=== PATIENT | female | born 1995 ===

== ENCOUNTER 2024-03-26 13:23 | Outpatient (AMB) | payer OTHER, SELFPAY ==
[2024-03-26 13:30] VITALS: PULSE 91; O2SAT 112; BMI 21.3
--- NOTE | 2024-03-26 13:30 | A.OFFVIS_ITS ---
Vital Signs 03/26/24 13:30 Height 6 ft Weight 157 lb BMI 21.3 Pulse 91 Pulse Source Pulse Oximeter Pulse Oximetry (%) 112 H Oxygen Delivery Method Room Air Intake Visit Reasons: Myasthenia Gravis/Tracheostomy Stakes Player Required: No Allergies No Known Allergies Allergy (Verified 03/26/24 13:35) HPI Comments Details: The patient is here for a pulmonary evaluation. The patient is a zak 28-year-old woman with a history of asthma, myasthenia gravis, rheumatoid arthritis now with tracheostomy for respiratory failure. Most of her records are a [facility] and also at [facility]. She also gets her care from [facility]. Based on the records the patient did have a episode of acute hypercarbic and hypoxic respiratory failure required intubation at [facility]. During that admission the patient did end up getting a tracheostomy placement likely for inability to clear the airway. She was subsequently placed on oxygen she was able to be discharged home. Not sure of the patient went to rehab before going home. Ultimately while in home she developed respiratory failure again and had to go back to the ER which they found that it was due to a faulty tracheostomy that had to be changed. She initially had a Shiley cuffed trach which was then replaced with a 6. Fenestrated CFN tracheostomy. Since the tracheostomy change she has had hard time with her breathing. It has been difficult for her to breathe or even be suctioned. She does have a Pass[place] valve that allows her to speak. She has a very weak cough due to her neuromuscular disease. She does get suctioned although she does not have any type of cough assist device. She has been on immunosuppressant therapy for her autoimmune conditions. She does use her nebulizer twice a day. In her asthma seems to be good control. As far as her nutrition the patient does have a PEG tube. Today we did change her tracheostomy to a 6UN75H tracheostomy which she feels more comfortable with. She is tolerating the Passy [place] valve very well. She has no longer using a noninvasive ventilator at home. We will assess her blood work including a venous gas to assess her CO2. The patient may benefit from noninvasive ventilation to minimize the hypercarbia and improve gas exchange. 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 Respiratory failure Social History (Updated 03/26/24 @ 13:43 by PEARL Drake) Patient Tobacco Use Status: Never used Tobacco Review of Systems Const Denies fever(s) and Reports weakness Eyes Reports no additional complaints ENT Reports neck pain Card Denies chest pain and Reports dyspnea Resp Reports cough and Reports dyspnea GI Reports abdominal pain (peg site) Musc Reports deformity, Reports arthralgias, Reports joint swelling, Reports limited range of motion and Reports neck pain Skin/Breast Denies rash Neuro Reports Neuro-related abnormal movements and Reports weakness Physical Exam Vital Signs: Last Vital Signs Pulse 91 03/26/24 13:30 Pulse Ox 112 H 03/26/24 13:30 Oxygen Delivery Method Room Air 03/26/24 13:30 BMI result Body Mass Index 21.3 Const General: alert Nutritional Appearance: underweight HEENT Head: Yes normocephalic Neck Neck: Yes tracheostomy present Chest Chest palpation & inspection: normal inspection of the chest Resp Effort & Inspection: Actively coughing (very weak) and decreased respiratory effort Cardio Heart sounds: S1 normal heart sound present and S2 normal heart sound present GI Palpation (GI): Soft to palpation and Tenderness to palpation present (GI) (peg site) Skin General skin exam: no rashes or lesions noted Extrem General: No clubbing and No cyanosis Assessment & Plan Assessment & Plan (1) Tracheostomy dependence: Code(s): Z93.0 - Tracheostomy status Category: Medical (2) Respiratory failure: Code(s): J96.90 - Respiratory failure, unspecified, unspecified whether with hypoxia or hypercapnia Category: Medical Qualifiers: Chronicity: chronic Respiratory failure complication: hypoxia and hypercapnia Qualified Code(s): J96.11 - Chronic respiratory failure with hypoxia; J96.12 - Chronic respiratory failure with hypercapnia (3) Restrictive lung mechanics due to neuromuscular disease: Code(s): J98.4 - Other disorders of lung; G70.9 - Myoneural disorder, unspecified Category: Medical (4) Rheumatoid arthritis: Code(s): M06.9 - Rheumatoid arthritis, unspecified Category: Medical Qualifiers: Rheumatoid arthritis location: multiple sites Rheumatoid factor presence: with rheumatoid factor Qualified Code(s): M05.79 - Rheumatoid arthritis with rheumatoid factor of multiple sites without organ or systems involvement Plan continue oxygen via trach collar Needs a cough assist device, very weak cough Bloodwork, bloodgas changes tracheostomy Shiley#6 CFN to a 6UN75H, will need supplies PMV during the day, TC at night No trach registered associate at this time F/U 4-6 weeks Orders: Orders Basic Metabolic Panel 03/26/24 J96.90 - Respiratory failure, unspecified, u nspecified whether with hypoxia or hypercapnia, Z93.0 - Tracheostomy status Liver Panel 03/26/24 J96.90 - Respiratory failure, unspecified, unspecified whether with hypoxia or hypercapnia, Z93.0 - Tracheostomy status Erythrocyte Sedimentation Rate 03/26/24 J96.90 - Respiratory failure, unspecified, unspecified whether with hypoxia or hypercapnia, Z93.0 - Tracheostomy status Venous Blood Gas 03/26/24 J96.90 - Respiratory failure, unspecified, unspecified whether with hypoxia or hypercapnia, Z93.0 - Tracheostomy status Complete Blood Count Auto Diff 03/26/24 J96.90 - Respiratory failure, unspecified, unspecified whether with hypoxia or hypercapnia, Z93.0 - Tracheostomy status Immunoglobulin E 03/26/24 J96.90 - Respiratory failure, unspecified, unspecified whether with hypoxia or hypercapnia, Z93.0 - Tracheostomy status TOM Reflex Titer and Pattern 03/26/2496. - Respiratory failure, unspecified, unspecified whether with hypoxia or hypercapnia, Z93.0 - Tracheostomy status Coding Level of Care Code New Pt Level 5 (21281) Diagnoses Tracheostomy dependence Z93.0 Chronic respiratory failure with hypoxia and hypercapnia J96.11; J96.12 Chronicity: chronic Respiratory failure complication: hypoxia and hypercapnia Restrictive lung mechanics due to neuromuscular disease J98.4; G70.9 Rheumatoid arthritis involving multiple sites with positive rheumatoid factor M05.79 Rheumatoid arthritis location: multiple sites Rheumatoid factor presence: with rheumatoid factor Time Spent (min) 60
== END 2024-03-26 13:59 | disposition home or self-care (01) ==
PROVIDERS: PCP Nurse Practitioner Family; Referring Provider Nurse Practitioner Family; Visit Provider Hospitalist
DX: J96.11 Chronic respiratory failure with hypoxia (principal); J96.12 Chronic respiratory failure with hypercapnia; Z93.0 Tracheostomy status; J98.4 Other disorders of lung; G70.9 Myoneural disorder, unspecified; M05.79 Rheumatoid arthritis with rheumatoid factor of multiple sites without organ or systems involvement
CPT/HCPCS: 99205

== ENCOUNTER 2024-03-26 13:23 | Outpatient (REF) | payer OTHER, SELFPAY ==
[2024-03-26 14:26] LABS: MANUAL DIFF FLAG NO
[2024-03-26 14:31] LABS: Venous Blood Gas Refer to POC result
[2024-03-26 14:35] LABS: VBG Base Excess 13.5 mmol/L; VBG HCO3 40 mmol/L (22-26); VBG pCO2 59 mmHg; VBG pH 7.43 (7.32-7.43); VBG pO2 78 mmHg
[2024-03-26 15:20] LABS: Basophils Percent Auto 0.3 % (0-2); Hematocrit 33.9 % (37.0-47.0); Hemoglobin 9.3 g/dl (12.0-16.0); Imm Gran Abs Auto 0.03 X10*3/uL (0.00-0.03); Imm Gran Pct Auto 0.4 % (0.0-0.4); Lymphocytes Absolute Auto 0.8 X10*3/uL (1.2-4.9); Lymphocytes Percent Auto 10.9 % (20-40); Mean Corpuscular HGB Conc 27.4 g/dl (31.0-35.0); Mean Corpuscular Hemoglobin 20.8 pg (27.0-33.0); Mean Corpuscular Volume 75.7 fL (80.0-98.0); Mean Platelet Volume 9.6 fL (9.4-12.3); Monocytes Absolute Auto 0.1 X10*3/uL (0.1-1.2); Monocytes Percent Auto 1.6 % (2-11); Neutrophils Percent Auto 86.8 % (45-73); Platelet Count 369 X10*3/uL (160-400); Red Blood Count 4.48 X10*6/uL (4.20-5.50); Red Cell Distribution Width 16.7 % (11.0-16.0)
[2024-03-26 15:49] LABS: Alanine Aminotransferase 5 U/L (0-31); Albumin Level 2.9 g/dL (3.5-5.0); Alkaline Phosphatase 63 U/L (39-117); Anion Gap 11 (12-20); Aspartate Amino Transferase 13 U/L (5-31); Bilirubin Direct < 0.2 mg/dL (0.0-0.5); Bilirubin Total 0.2 mg/dL (0.0-1.0); Blood Urea Nitrogen 12 mg/dL (9-16); Calcium 8.7 mg/dL (8.4-10.2); Carbon Dioxide 34 mmol/L (22-29); Chloride 95 mmol/L (96-108); Estimated Glomerular Filt Rate > 60; Glucose Random 96 mg/dL (60-115); Potassium 4.6 mmol/L (3.3-5.1); Sodium 135 mmol/L (135-145); Total Protein 7.6 g/dL (6.5-8.0)
[2024-03-26 16:03] LABS: Erythrocyte Sedimentation Rate 47 MM/HR (0-20)
[2024-03-30 06:33] LABS: Immunoglobulin E 8 kU/L (<OR=114)
[2024-04-01 15:43] LABS: ANA Pattern 2 Nuclear, Homogeneous; Anti Nuclear Antibody Screen POSITIVE (NEGATIVE)
== END 2024-03-26 13:24 | disposition home or self-care (01) ==
LOC: HO.LAB 13:23
PROVIDERS: PCP Nurse Practitioner Family; Referring Provider Nurse Practitioner Family; Visit Provider Hospitalist
DX: J96.90 Respiratory failure, unspecified, unspecified whether with hypoxia or hypercapnia (principal); J96.11 Chronic respiratory failure with hypoxia; J96.12 Chronic respiratory failure with hypercapnia; J98.4 Other disorders of lung; G70.9 Myoneural disorder, unspecified; M05.79 Rheumatoid arthritis with rheumatoid factor of multiple sites without organ or systems involvement; Z93.0 Tracheostomy status
CPT/HCPCS: 36415; 80048; 80076; 82785; 82803; 85025; 85652; 86038; 86039; 99202

== ENCOUNTER 2024-05-06 11:17 | Outpatient (AMB) | payer OTHER, SELFPAY ==
--- NOTE | 2024-05-06 11:22 | MHC.OFFVIS ---
Vital Signs 05/06/24 11:24 Height 6 ft Pulse 115 H Pulse Source Pulse Oximeter Pulse Oximetry (%) 81 L Oxygen Delivery Method Room Air Intake Visit Reasons: Myasthenia Gravis/Tracheostomy Allergies No Known Allergies Allergy (Verified 05/06/24 11:26) HPI Comments Details: The patient is a zak 28-year-old woman with a history of asthma, myasthenia gravis, rheumatoid arthritis now with tracheostomy for respiratory failure. Most of her records are a [facility] and also at [facility]. She also gets her care from [facility]. Based on the records the patient did have a episode of acute hypercarbic and hypoxic respiratory failure required intubation at [facility]. During that admission the patient did end up getting a tracheostomy placement likely for inability to clear the airway. She was subsequently placed on oxygen she was able to be discharged home. Not sure of the patient went to rehab before going home. Ultimately while in home she developed respiratory failure again and had to go back to the ER which they found that it was due to a faulty tracheostomy that had to be changed. She initially had a Shiley cuffed trach which was then replaced with a 6. Fenestrated CFN tracheostomy. Since the tracheostomy change she has had hard time with her breathing. It has been difficult for her to breathe or even be suctioned. She does have a Passy [place] valve that allows her to speak. She has a very weak cough due to her neuromuscular disease. She does get suctioned although she does not have any type of cough assist device. She has been on immunosuppressant therapy for her autoimmune conditions. She does use her nebulizer twice a day. In her asthma seems to be good control. As far as her nutrition the patient does have a PEG tube. Today we did change her tracheostomy to a 6UN75H tracheostomy which she feels more comfortable with. She is tolerating the Passy [place] valve very well. She has no longer using a noninvasive ventilator at home. We will assess her blood work including a venous gas to assess her CO2. The patient may benefit from noninvasive ventilation to minimize the hypercarbia and improve gas exchange. 05/06/2024 the patient is here for a pulmonary follow-up visit. Overall the patient is doing fairly well. Her chest congestion is better. She did get approved initially for the cough assist device but then it was taken away because insurance will not cover although she needs it. He will from the [employer] that we use for did not approaches and we did not realize that have been denied. In addition to that I did send a fax with the new tracheostomy that the patient needs in order to change it. However, she continues to receive the old 1. I did reach out to [facility] and did speak to a patient credit and collections representative. I did fax over a new script. I am hoping that she can get this tracheostomy soon not do for us to change it in the next 4 weeks. As it is already she is having some irritation to the skin around her trachea. Mainly because of secretions and the rubbing from the tracheostomy. Therefore the tracheostomy should be changed and better trach sponges should be provided to minimize that friction. I provide her with antimicrobial ointment although if not better she may need an antifungal treatment. Asbestos keep the area dry. In the meantime the patient also has significant gingivitis and therefore is at risk for micro aspirations into the lung. Will treat her with chlorhexidine mouthwash for a month twice a day in order to improve the issue. She may need to be on prophylactic chlorhexidine moving 4. will follow-up in 4-6 weeks. 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 Respiratory failure Social History (Updated 03/26/24 @ 13:43 by PEARL Drake) Patient Tobacco Use Status: Never used Tobacco Review of Systems Const Denies fever(s) and Reports weakness Eyes Reports no additional complaints ENT Reports halitosis, Reports dental pain and Reports neck pain Card Denies chest pain and Reports dyspnea Resp Reports cough and Reports dyspnea GI Reports abdominal pain (peg site) Musc Reports deformity, Reports arthralgias, Reports joint swelling, Reports limited range of motion and Reports neck pain Skin/Breast Denies rash Neuro Reports Neuro-related abnormal movements and Reports weakness Physical Exam Vital Signs: Last Vital Signs Pulse 115 H 05/06/24 11:24 Pulse Ox 81 L 05/06/24 11:24 Oxygen Delivery Method Room Air 05/06/24 11:24 Const General: alert Nutritional Appearance: underweight HEENT Head: Yes normocephalic Teeth and gingiva: gingiva abnormal hypertrophic, edematous and diffusely erythematous Neck Neck: Yes tracheostomy present (skin ulceration around the tracheostomy) Chest Chest palpation & inspection: normal inspection of the chest Resp Effort & Inspection: Actively coughing (very weak) and decreased respiratory effort Cardio Heart sounds: S1 normal heart sound present and S2 normal heart sound present GI Palpation (GI): Soft to palpation and Tenderness to palpation present (GI) (peg site) Skin General skin exam: no rashes or lesions noted Extrem General: No clubbing and No cyanosis Assessment & Plan Assessment & Plan (1) Tracheostomy dependence: Code(s): Z93.0 - Tracheostomy status Category: Medical (2) Respiratory failure: Code(s): J96.90 - Respiratory failure, unspecified, unspecified whether with hypoxia or hypercapnia Category: Medical Qualifiers: Chronicity: chronic Respiratory failure complication: hypoxia and hypercapnia Qualified Code(s): J96.11 - Chronic respiratory failure with hypoxia; J96.12 - Chronic respiratory failure with hypercapnia (3) Restrictive lung mechanics due to neuromuscular disease: Code(s): J98.4 - Other disorders of lung; G70.9 - Myoneural disorder, unspecified Category: Medical (4) Rheumatoid arthritis: Code(s): M06.9 - Rheumatoid arthritis, unspecified Category: Medical Qualifiers: Rheumatoid arthritis location: multiple sites Rheumatoid factor presence: with rheumatoid factor Qualified Code(s): M05.79 - Rheumatoid arthritis with rheumatoid factor of multiple sites without organ or systems involvement Plan continue oxygen via trach collar Needs a cough assist device, not covered tracheostomy Shiley#6 CFN to a 6UN75H, will need supplies. Called the DME, [employer] and refaxed PMV during the day, TC at night No trach machine featheredger and reducer at this time mouthwash x 30 days bactroban ointment to affected area F/U 4-6 weeks Medications: New chlorhexidine gluconate 0.12% 15 mL buccal BID 900 mL 0RF 30 days mupirocin 2% 1 appl topical BID 22 grams 0RF 7 days Coding Level of Care Code Est Pt Level 4 (32772) Diagnoses Tracheostomy dependence Z93.0 Chronic respiratory failure with hypoxia and hypercapnia J96.11; J96.12 Chronicity: chronic Respiratory failure complication: hypoxia and hypercapnia Restrictive lung mechanics due to neuromuscular disease J98.4; G70.9 Rheumatoid arthritis involving multiple sites with positive rheumatoid factor M05.79 Rheumatoid arthritis location: multiple sites Rheumatoid factor presence: with rheumatoid factor Time Spent (min) 20
[2024-05-06 11:24] VITALS: PULSE 115; O2SAT 81
== END 2024-05-06 11:51 | disposition home or self-care (01) ==
PROVIDERS: PCP Nurse Practitioner Family; Visit Provider Hospitalist
DX: Z93.0 Tracheostomy status (principal); J96.11 Chronic respiratory failure with hypoxia; J96.12 Chronic respiratory failure with hypercapnia; J98.4 Other disorders of lung; G70.9 Myoneural disorder, unspecified; M05.79 Rheumatoid arthritis with rheumatoid factor of multiple sites without organ or systems involvement
CPT/HCPCS: 99214

== ENCOUNTER → 2024-05-06 11:17 | Outpatient (BNVA) | payer OTHER, SELFPAY | PROVIDERS: PCP Nurse Practitioner Family; Visit Provider Hospitalist | DX: J96.11 Chronic respiratory failure with hypoxia (principal); J96.12 Chronic respiratory failure with hypercapnia; J98.4 Other disorders of lung; M05.79 Rheumatoid arthritis with rheumatoid factor of multiple sites without organ or systems involvement; G70.9 Myoneural disorder, unspecified; Z93.0 Tracheostomy status | CPT/HCPCS: 99212 ==

== ENCOUNTER 2024-07-27 10:14 | Outpatient (AMB) | payer OTHER, SELFPAY ==
--- NOTE | 2024-07-27 11:04 | A.OFFVIS_ITS ---
Vital Signs 07/27/24 11:07 Height 6 ft Weight 167 lb BMI 22.6 Pulse 111 H Pulse Oximetry (%) 94 Oxygen Delivery Method Room Air Intake Visit Reasons: ? Trach/Difficulty Swallowing Table Hand Required: No Allergies No Known Allergies Allergy (Verified 07/27/24 11:08) HPI Comments Details: The patient is a zak 29-year-old woman with a history of asthma, myasthenia gravis, rheumatoid arthritis now with tracheostomy for respiratory failure. Most of her records are a [facility] and also at [facility]. She also gets her care from [facility]. Based on the records the patient did have a episode of acute hypercarbic and hypoxic respiratory failure required intubation at [facility]. During that admission the patient did end up getting a tracheostomy placement likely for inability to clear the airway. She was subsequently placed on oxygen she was able to be discharged home. Not sure of the patient went to rehab before going home. Ultimately while in home she developed respiratory failure again and had to go back to the ER which they found that it was due to a faulty tracheostomy that had to be changed. She initially had a Shiley cuffed trach which was then replaced with a 6. Fenestrated CFN tracheostomy. Since the tracheostomy change she has had hard time with her breathing. It has been difficult for her to breathe or even be suctioned. She does have a Passy [place] valve that allows her to speak. She has a very weak cough due to her neuromuscular disease. She does get suctioned although she does not have any type of cough assist device. She has been on immunosuppressant therapy for her autoimmune conditions. She does use her nebulizer twice a day. In her asthma seems to be good control. As far as her nutrition the patient does have a PEG tube. Today we did change her tracheostomy to a 6UN75H tracheostomy which she feels more comfortable with. She is tolerating the Passy [place] valve very well. She has no longer using a noninvasive ventilator at home. We will assess her blood work including a venous gas to assess her CO2. The patient may benefit from noninvasive ventilation to minimize the hypercarbia and improve gas exchange. 05/06/2024 the patient is here for a pulmonary follow-up visit. Overall the patient is doing fairly well. Her chest congestion is better. She did get approved initially for the cough assist device but then it was taken away because insurance will not cover although she needs it. He will from the [employer] that we use for did not approaches and we did not realize that have been denied. In addition to that I did send a fax with the new tracheostomy that the patient needs in order to change it. However, she continues to receive the old 1. I did reach out to [facility] and did speak to a patient admissions representative. I did fax over a new script. I am hoping that she can get this tracheostomy soon not do for us to change it in the next 4 weeks. As it is already she is having some irritation to the skin around her trachea. Mainly because of secretions and the rubbing from the tracheostomy. Therefore the tracheostomy should be changed and better trach sponges should be provided to minimize that friction. I provide her with antimicrobial ointment although if not better she may need an antifungal treatment. Asbestos keep the area dry. In the meantime the patient also has significant gingivitis and therefore is at risk for micro aspirations into the lung. Will treat her with chlorhexidine mouthwash for a month twice a day in order to improve the issue. She may need to be on prophylactic chlorhe xidine moving 4. will follow-up in 4-6 weeks. 07/27/2024 the patient is here for hospital follow-up visit. Recently she developed worsening respiratory symptoms and was admitted to [facility] with pneumonia. She did spend some time in the ICU. Subsequently discharged. She is feeling better. She is using the oxygen continuously. The patient has had issues with chronic hypercarbic respiratory failure. She does have an elevated CO2. Will go ahead and repeat her blood gas during the next visit. She also when she was in a hospital had a tracheostomy changed to a cuffed [employer] tracheostomy. With a bigger tracheostomy in the cough is hard for her to use her Passy [place] valve and therefore she has a hard time eating and speaking. Therefore I did call the [employer] that she is working with and myself in my medical record clerk talk to multiple people to make sure that she got her supplies because she has not been getting her tracheostomy sent to her home. They did state that they will going to make sure that they will going to send a tracheostomy today and should be available by tomorrow. When she returns to the office will downsize her tracheostomy. Will check a blood gas at that point. If the patient continues have evidence of hypercarbia worsening disease then will start having to discuss further treatments with the noninvasive ventilator to improve her gas exchange. As far as the noninvasive ventilator this can be provided with a portable mouthpiece in order for her to get rescue breaths that sometimes she needs because of the increased work of breathing. Also sometimes that she can use at nighttime only if her tracheostomy can be capped. If however her tracheostomy can not be capped then she would potentially need a ventilator that will train operations supervisor to the tracheostomy. This could be done with a uncuffed trach as long as the PEEP is a 0. therefore, will wait for her to come back to downsize her trach and see how she does in order to move forward. If the patient develops any worsening symptoms prior to that she will call the office for further evaluation. She continues with the chest physical therapy. She has a new suction machine. And she is also using the prophylactic chlorhexidine mouthwash to prevent aspiration pneumonia. 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 Respiratory failure Social History (Updated 03/26/24 @ 13:43 by PEARL Drake) Patient Tobacco Use Status: Never used Tobacco Review of Systems Const Denies fever(s) and Reports weakness Eyes Reports no additional complaints ENT Reports halitosis, Reports dental pain and Reports neck pain Card Denies chest pain and Reports dyspnea Resp Reports cough and Reports dyspnea GI Reports abdominal pain (peg site) Musc Reports deformity, Reports arthralgias, Reports joint swelling, Reports limited range of motion and Reports neck pain Skin/Breast Denies rash Neuro Reports Neuro-related abnormal movements and Reports weakness Physical Exam Vital Signs: Last Vital Signs Pulse 111 H 07/27/24 11:07 Pulse Ox 94 07/27/24 11:07 Oxygen Delivery Method Room Air 07/27/24 11:07 BMI result Body Mass Index 22.6 Const General: alert Nutritional Appearance: underweight HEENT Head: Yes normocephalic Teeth and gingiva: gingiva abnormal hypertrophic, edematous and diffusely erythematous Neck Neck: Yes tracheostomy present (skin ulceration around the tracheostomy) Chest Chest palpation & inspection: normal inspection of the chest Resp Effort & Inspection: Actively coughing (very weak) and decreased respiratory e ffort Cardio Heart sounds: S1 normal heart sound present and S2 normal heart sound present GI Palpation (GI): Soft to palpation and Tenderness to palpation present (GI) (peg site) Skin General skin exam: no rashes or lesions noted Extrem General: No clubbing and No cyanosis Assessment & Plan Assessment & Plan (1) Tracheostomy dependence: Code(s): Z93.0 - Tracheostomy status Category: Medical (2) Respiratory failure: Code(s): J96.90 - Respiratory failure, unspecified, unspecified whether with hypoxia or hypercapnia Category: Medical Qualifiers: Chronicity: chronic Respiratory failure complication: hypoxia and hypercapnia Qualified Code(s): J96.11 - Chronic respiratory failure with hypoxia; J96.12 - Chronic respiratory failure with hypercapnia (3) Restrictive lung mechanics due to neuromuscular disease: Code(s): J98.4 - Other disorders of lung; G70.9 - Myoneural disorder, unspecified Category: Medical (4) Rheumatoid arthritis: Code(s): M06.9 - Rheumatoid arthritis, unspecified Category: Medical Qualifiers: Rheumatoid arthritis location: multiple sites Rheumatoid factor presence: with rheumatoid factor Qualified Code(s): M05.79 - Rheumatoid arthritis with rheumatoid factor of multiple sites without organ or systems involvement Plan continue oxygen via trach collar Needs a cough assist device, not covered tracheostomy Shiley#6 CFN to a 6UN75H, will need supplies. Called the DME, [employer] and refaxed and called today PMV during the day, TC at night once downsize mouthwash daily repeat bloodgas during the next visit, likely will need a non invasive ventilator versus ventilator for worsening respiratory failure F/U 4 weeks Coding Level of Care Code Est Pt Level 5 (86331) Complex EM visit Add On G2211 Diagnoses Tracheostomy dependence Z93.0 Chronic respiratory failure with hypoxia and hypercapnia J96.11; J96.12 Chronicity: chronic Respiratory failure complication: hypoxia and hypercapnia Restrictive lung mechanics due to neuromuscular disease J98.4; G70.9 Rheumatoid arthritis involving multiple sites with positive rheumatoid factor M05.79 Rheumatoid arthritis location: multiple sites Rheumatoid factor presence: with rheumatoid factor Time Spent (min) 40
[2024-07-27 11:07] VITALS: PULSE 111; O2SAT 94; BMI 22.6
== END 2024-07-27 11:46 | disposition home or self-care (01) ==
PROVIDERS: PCP Nurse Practitioner Family; Visit Provider Hospitalist
DX: J96.11 Chronic respiratory failure with hypoxia (principal); Z93.0 Tracheostomy status; J96.12 Chronic respiratory failure with hypercapnia; G70.9 Myoneural disorder, unspecified; M05.79 Rheumatoid arthritis with rheumatoid factor of multiple sites without organ or systems involvement; J98.4 Other disorders of lung
CPT/HCPCS: 99215; G2211

== ENCOUNTER → 2024-07-27 10:14 | Outpatient (BNVA) | payer OTHER, SELFPAY | PROVIDERS: PCP Nurse Practitioner Family; Visit Provider Hospitalist | DX: J96.90 Respiratory failure, unspecified, unspecified whether with hypoxia or hypercapnia (principal); J96.12 Chronic respiratory failure with hypercapnia; J98.4 Other disorders of lung; G70.9 Myoneural disorder, unspecified; M05.79 Rheumatoid arthritis with rheumatoid factor of multiple sites without organ or systems involvement; Z93.0 Tracheostomy status | CPT/HCPCS: 99212 ==

== ENCOUNTER 2024-12-03 10:53 | Outpatient (AMB) | payer OTHER, SELFPAY ==
[2024-12-03 10:56] VITALS: BP 100/62; PULSE 102; O2SAT 100
--- NOTE | 2024-12-03 10:56 | A.OFFVIS_ITS ---
Vital Signs 12/03/24 10:56 Height 6 ft BP 100/62 Blood Pressure Location Rt brachial Position Supine Pulse 102 H Pulse Source Pulse Oximeter Pulse Oximetry (%) 100 Oxygen Delivery Method Nasal Cannula Oxygen Flow Rate 3 Intake Visit Reasons: ? Trach/Difficulty Swallowing Allergies No Known Allergies Allergy (Verified 07/27/24 11:08) HPI Comments Details: The patient is a zak 29-year-old woman with a history of asthma, myasthenia gravis, rheumatoid arthritis now with tracheostomy for respiratory failure. Most of her records are a [facility] and also at [facility]. She also gets her care from [facility]. Based on the records the patient did have a episode of acute hypercarbic and hypoxic respiratory failure required intubation at [facility]. During that admission the patient did end up getting a tracheostomy placement likely for inability to clear the airway. She was subsequently placed on oxygen she was able to be discharged home. Not sure of the patient went to rehab before going home. Ultimately while in home she developed respiratory failure again and had to go back to the ER which they found that it was due to a faulty tracheostomy that had to be changed. She initially had a Shiley cuffed trach which was then replaced with a 6. Fenestrated CFN tracheostomy. Since the tracheostomy change she has had hard time with her breathing. It has been difficult for her to breathe or even be suctioned. She does have a Passy Dawn valve that allows her to speak. She has a very weak cough due to her neuromuscular disease. She does get suctioned although she does not have any type of cough assist device. She has been on immunosuppressant therapy for her autoimmune conditions. She does use her nebulizer twice a day. In her asthma seems to be good control. As far as her nutrition the patient does have a PEG tube. Today we did change her tracheostomy to a [id number] tracheostomy which she feels more comfortable with. She is tolerating the Passy Dawn valve very well. She has no longer using a noninvasive ventilator at home. We will assess her blood work including a venous gas to assess her CO2. The patient may benefit from noninvasive ventilation to minimize the hypercarbia and improve gas exchange. 05/06/2024 the patient is here for a pulmonary follow-up visit. Overall the patient is doing fairly well. Her chest congestion is better. She did get approved initially for the cough assist device but then it was taken away because insurance will not cover although she needs it. He will from the [employer] that we use for did not approaches and we did not realize that have been denied. In addition to that I did send a fax with the new tracheostomy that the patient needs in order to change it. However, she continues to receive the old 1. I did reach out to [facility] and did speak to a patient computer help desk representative. I did fax over a new script. I am hoping that she can get this tracheostomy soon not do for us to change it in the next 4 weeks. As it is already she is having some irritation to the skin around her trachea. Mainly because of secretions and the rubbing from the tracheostomy. Therefore the tracheostomy should be changed and better trach sponges should be provided to minimize that friction. I provide her with antimicrobial ointment although if not better she may need an antifungal treatment. Asbestos keep the area dry. In the meantime the patient also has significant gingivitis and therefore is at risk for micro aspirations into the lung. Will treat her with chlorhexidine mouthwash for a month twice a day in order to improve the issue. She may need to be on prophylactic chlorhexidine moving 4. will follow-up in 4-6 weeks. 07/27/2024 the patient is here for hospital follow-up visit. Recently she developed worsening respiratory symptoms and was admitted to [facility] with pneumonia. She did spend some time in the ICU. Subsequently di scharged. She is feeling better. She is using the oxygen continuously. The patient has had issues with chronic hypercarbic respiratory failure. She does have an elevated CO2. Will go ahead and repeat her blood gas during the next visit. She also when she was in a hospital had a tracheostomy changed to a cuffed [employer] tracheostomy. With a bigger tracheostomy in the cough is hard for her to use her Passy Hampton valve and therefore she has a hard time eating and speaking. Therefore I did call the [employer] that she is working with and myself in my medical pathologist talk to multiple people to make sure that she got her supplies because she has not been getting her tracheostomy sent to her home. They did state that they will going to make sure that they will going to send a tracheostomy today and should be available by tomorrow. When she returns to the office will downsize her tracheostomy. Will check a blood gas at that point. If the patient continues have evidence of hypercarbia worsening disease then will start having to discuss further treatments with the noninvasive ventilator to improve her gas exchange. As far as the noninvasive ventilator this can be provided with a portable mouthpiece in order for her to get rescue breaths that sometimes she needs because of the increased work of breathing. Also sometimes that she can use at nighttime only if her tracheostomy can be capped. If however her tracheostomy can not be capped then she would potentially need a ventilator that will tool supervisor to the tracheostomy. This could be done with a uncuffed trach as long as the PEEP is a 0. therefore, will wait for her to come back to downsize her trach and see how she does in order to move forward. If the patient develops any worsening symptoms prior to that she will call the office for further evaluation. She continues with the chest physical therapy. She has a new suction machine. And she is also using the prophylactic chlorhexidine mouthwash to prevent aspiration pneumonia. 12/03/2024 the patient is here for a pulmonary follow-up visit. Overall she is doing better she did get be admitted to the hospital with acute on chronic hypercarbic respiratory failure and she was placed on nighttime ventilator which she seems to be tolerating well. She gets that through her DME, [employer]. She does have a picture the invasive ventilator which is actually nostril. The patient does have a cough tracheostomy. We did swab it to a new 1, [id number]. I did send a request prescription to her DME company for the right size tracheostomy as she is still getting the older 1 that is uncuffed. She also needs inner cannulas and syringes to feel the cough. She does have a suction machine with her. We did swab her tracheostomy at the bedside without any complications she tolerated well and then she required suction afterwards. Will plan to do blood work including a blood gas during the next visit. For now seems like the ventilators working well and she appears to be stable currently. Will follow-up in 6-8 weeks and will change her tracheostomy at that point. If she has any issues prior to that she was coughing earlier assessment. 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 Respiratory failure Social History Patient Tobacco Use Status: Never used Tobacco Review of Systems Const Denies fever(s) and Reports weakness Eyes Reports no additional complaints ENT Reports halitosis, Reports dental pain and Reports neck pain Card Denies chest pain and Reports dyspnea Resp Reports cough and Reports dyspnea GI Reports abdominal pain (peg site) Musc Reports deformity, Reports arthralgias, Reports joint swelling, Reports limited range of motion and Reports neck pain Skin/Breast Denies rash Neuro Reports Neuro-related abnormal movements and Reports weakness Physical Exam Vital Signs: Last Vital Signs Pulse 102 H 12/03/24 10:56 BP 100/62 12/03/24 10:56 Pulse Ox 100 12/03/24 10:56 Oxygen Delivery Method Nasal Cannula 12/03/24 10:56 Oxygen Flow Rate 3 12/03/24 10:56 Const General: alert Nutritional Appearance: underweight HEENT Head: Yes normocephalic Teeth and gingiva: gingiva abnormal hypertrophic, edematous and diffusely erythematous Neck Neck: Yes tracheostomy present (skin ulceration around the tracheostomy) Chest Chest palpation & inspection: normal inspection of the chest Resp Effort & Inspection: Actively coughing (very weak) and decreased respiratory effort Cardio Heart sounds: S1 normal heart sound present and S2 normal heart sound present GI Palpation (GI): Soft to palpation and Tenderness to palpation present (GI) (peg site) Skin General skin exam: no rashes or lesions noted Extrem General: No clubbing and No cyanosis Assessment & Plan Assessment & Plan (1) Tracheostomy dependence: Code(s): Z93.0 - Tracheostomy status Category: Medical (2) Respiratory failure: Code(s): J96.90 - Respiratory failure, unspecified, unspecified whether with hypoxia or hypercapnia Category: Medical Qualifiers: Chronicity: chronic Respiratory failure complication: hypoxia and hypercapnia Qualified Code(s): J96.11 - Chronic respiratory failure with hypoxia; J96.12 - Chronic respiratory failure with hypercapnia (3) Restrictive lung mechanics due to neuromuscular disease: Code(s): J98.4 - Other disorders of lung; G70.9 - Myoneural disorder, unspecified Category: Medical (4) Rheumatoid arthritis: Code(s): M06.9 - Rheumatoid arthritis, unspecified Category: Medical Qualifiers: Rheumatoid arthritis location: multiple sites Rheumatoid factor presence: with rheumatoid factor Qualified Code(s): M05.79 - Rheumatoid arthritis with rheumatoid factor of multiple sites without organ or systems involvement Plan continue oxygen via trach collar Needs a cough assist device, not covered tracheostomy Lacey#[id number], changed today at the bedside without complications continue ventilator at night repeat bloodgas during the next visit F/U 4-6 weeks Coding Level of Care Code Est Pt Level 5 (96417) Diagnoses Tracheostomy dependence Z93.0 Chronic respiratory failure with hypoxia and hypercapnia J96.11; J96.12 Chronicity: chronic Respiratory failure complication: hypoxia and hypercapnia Restrictive lung mechanics due to neuromuscular disease J98.4; G70.9 Rheumatoid arthritis involving multiple sites with positive rheumatoid factor M05.79 Rheumatoid arthritis location: multiple sites Rheumatoid factor presence: with rheumatoid factor Time Spent (min) 45
--- OUTSIDE RECORDS SUMMARY | 2024-12-03 12:53 | XMS_ITS | Clinical Summary ---
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 Absolute Manual 2.48 1.50 - 7.00 K/mcL LAB HEMETOLOGY METHOD 11/01/2024 5:13 AM [facility] Lymphocytes Absolute 0.97(L) 1.00 - 5.00 K/mcL LAB HEMETOLOGY METHOD 11/01/2024 5:13 AM [facility] Reactive Lymph Abs Manual 0.07(H) 0.00 - 0.00 lym LAB HEMETOLOGY METHOD 11/01/2024 5:13 AM [facility] Monocytes Absolute Manual 0.07(L) 0.20 - 1.00 K/mcL LAB HEMETOLOGY METHOD 11/01/2024 5:13 AM [facility] Eosinophils Absolute Manual 0.00 0.00 - 0.50 K/mcL LAB HEMETOLOGY METHOD 11/01/2024 5:13 AM EST [facility] Basophils Absolute Manual 0.00 0.00 - 0.20 K/mcL LAB HEMETOLOGY METHOD 11/01/2024 5:13 AM EST [facility] Rbc Morphology See comment( A) Consistent with indices, Normal for LAB HEMETOLOGY METHOD 11/01/2024 5:13 AM EST [facility] Comment:RBC: Morphology agre es with CBC Platelet Morphology - WAM See Note(A) Normal LAB HEMETOLOGY METHOD 11/01/2024 5:13 AM EST [facility] Comment:PLT: Normal Blood Venous blood specimen / Unknown Venipuncture / Unknown 11/01/2024 4:15 AM EST 11/01/2024 4:31 AM EST Parveen Warner DO LAB BLOOD ORDERABLES [facility] [address] [place] [address], * (ABNORMAL) CBC auto differential (11/01/2024 4:15 AM EST) Only the most recent of11 resultswithin the time period is included. WBC 3.6(L) 4.8 - 10.8 K/mcL LAB HEMETOLOGY METHOD 11/01/2024 5:13 AM EST [facility] RBC 4.00 3.80 - 4.80 M/mcL LAB HEMETOLOGY METHOD 11/01/2024 5:13 AM EST [facility] Hemoglobin 8.1(L) 11.5 - 16.0 g/dL LAB HEMETOLOGY METHOD 11/01/2024 5:13 AM EST [facility] Hematocrit 29.2(L) 35.0 - 47.0 % LAB HEMETOLOGY METHOD 11/01/2024 5:13 AM EST [facility] MCV 73.2(L) 79.0 - 98.0 FL LAB HEMETOLOGY METHOD 11/01/2024 5:13 AM EST [facility] MCH 20.3(L) 27.0 - 32.0 pcg LAB HEMETOLOGY METHOD 11/01/2024 5:13 AM EST [facility] MCHC 27.7(L) 32.0 - 37.0 g/dL LAB HEMETOLOGY METHOD 11/01/2024 5:13 AM EST [facility] RDW 18.8(H) 11.0 - 15.0 % LAB HEMETOLOGY METHOD 11/01/2024 5:13 AM [facility] Platelets 323 130 - 400 K/mcL LAB HEMETOLOGY METHOD 11/01/2024 5:13 AM EST [facility] MPV 9.3 7.0 - 11.0 FL LAB HEMETOLOGY METHOD 11/01/2024 5:13 AM EST [facility] NRBC 0.0 <1.0 % LAB HEMETOLOGY METHOD 11/01/2024 5:13 AM [facility] NRBC Absolute 0.00 <0.10 K/mcL LAB HEMETOLOGY METHOD 11/01/2024 5:13 AM [facility] Blood Venous blood specimen / Unknown Venipuncture / Unknown 11/01/2024 4:15 AM EST 11/01/2024 4:31 AM EST Parveen Warner DO LAB BLOOD ORDERABLES [facility] [address] [place] [address], * Phosphorus (11/01/2024 4:15 AM EST) Only the most recent of10 resultswithin the time period is included. Phosphorus 3.4 2.5 - 4.5 mg/dL LAB CHEMISTRY METHOD 11/01/2024 5:07 AM EST [facility] Blood Venous blood specimen / Unknown Venipuncture / Unknown 11/01/2024 4:15 AM EST 11/01/2024 4:31 AM EST Parveen Warner LAB BLOOD ORDERABLES Performing Organization Address City/[facility] Co de Phone Number [facility] [address] [place] [address], [place] [phone] * (ABNORMAL) Magnesium (11/01/2024 4:15 AM EST) Only the most recent of11 resultswithin the time period is included. Magnesium 1.8(L) 1.9 - 2.6 mg/dL LAB CHEMISTRY METHOD 11/01/2024 5:07 AM EST [facility] Blood Venous blood specimen / Unknown Venipuncture / Unknown 11/01/2024 4:15 AM EST 11/01/2024 4:31 AM EST Parveen Warner [facility] BLOOD ORDERABLES Performing Organization Address [facility] de Phone Number [facility] [address] [place] [address], * Calcium, ionized (11/01/2024 4:15 AM EST) Only the most recent of9 resultswithin the time period is included. Calcium Ionized 4.64 4.50 - 5.30 mg/dL 11/01/2024 4:38 AM EST [facility] Blood Venous blood specimen / Unknown Venipuncture / Unknown 11/01/2024 4:15 AM EST 11/01/2024 4:30 AM EST Parveen Warner LAB BLOOD ORDERABLES Performing Organization Address City/[facility]/ZIP Co de Phone Number [facility] [address] [place] [address], [place] [phone] * (ABNORMAL) Basic metabolic panel (11/01/2024 4:15 AM EST) Only the most recent of10 resultswithin the time period is included. Sodium 134 133 - 145 mmol/L LAB CHEMISTRY METHOD 11/01/2024 5:14 AM [facility] Potassium 4.3 3.5 - 5.5 mmol/L LAB CHEMISTRY METHOD 11/01/2024 5:14 AM [facility] Chloride 103 96 - 110 mmol/L LAB CHEMISTRY METHOD 11/01/2024 5:14 AM [facility] CO2 29 21 - 32 mmol/L LAB CHEMISTRY METHOD 11/01/2024 5:14 AM [facility] Anion Gap 2(L) 3 - 11 LAB CHEMISTRY METHOD 11/01/2024 5:14 AM [facility] Glucose 92 70 - 100 mg/dL LAB CHEMISTRY METHOD 11/01/2024 5:14 AM [facility] BUN 13 5 - 25 mg/dL LAB CHEMISTRY METHOD 11/01/2024 5:14 AM [facility] Creatinine 0.17(L) 0.50 - 1.10 mg/dL LAB CHEMISTRY METHOD 11/01/2024 5:14 AM [facility] eGFR 167 >=60 mL/min/1. 73m2 LAB CHEMISTRY METHOD 11/01/2024 5:14 AM [facility] Comment:Calculation based on the??Chronic Kidney Disease Epidemiology Collaboration (CKD-EPI) equation refit??without adjustment for race. BUN/Creatinine Ratio 76.5 LAB CHEMISTRY METHOD 11/01/2024 5:14 AM [facility] Calcium 8.2(L) 8.5 - 10.5 mg/dL LAB CHEMISTRY METHOD 11/01/2024 5:14 AM [facility] Blood Venous blood specimen / Unknown Venipuncture / Unknown 11/01/2024 4:15 AM EST 11/01/2024 4:31 AM EST Parveen Warner DO LAB BLOOD ORDERABLES Performing Organization Address [facility]/ZIP Co de Phone Number [facility] [address] [place] [address], [place] [phone] * Lavender tube (10/29/2024 4:46 AM EST) Extra Tube Hold for add-ons. 10/29/2024 7:01 AM EST [facility] Comment:Auto resulted. Blood Venous blood specimen / Unknown 10/29/2024 4:46 AM EST 10/29/2024 5:04 AM EST Araseli Morton MD LAB BLOOD ORDERABLES Performing Organization Address [facility] Co de Phone Number [facility] [address] [place] [address], [place] [phone] * Light blue tube (10/29/2024 4:46 AM EST) Only the most recent of7 resultswithin the time period is included. Extra Tube Hold for add-ons. 10/29/2024 7:01 AM EST [facility] Comment:Auto resulted. Blood Venous blood specimen / Unknown 10/29/2024 4:46 AM EST 10/29/2024 5:04 AM EST Araseli Morton MD LAB BLOOD ORDERABLES Performing Organization Address [facility] Co de Phone Number [facility] [address] [place] [address], [place] [phone] * (ABNORMAL) Venous blood gas (10/28/2024 4:23 AM EST) Only the most recent of2 resultswithin the time period is included. pH, Justino 7.47(H) 7.32 - 7.42 pH 10/28/2024 4:37 AM [facility] pCO2, Justino 39(L) 41 - 51 mmHg 10/28/2024 4:37 AM [facility] pO2, Justino 64(H) 25 - 40 mmHg 10/28/2024 4:37 AM [facility] HCO3, Venous 28.2(H) 22.0 - 26.0 mmol/L 10/28/2024 4:37 AM [facility] O2 Sat, Justino 92.6 % 10/28/2024 4:37 AM [facility] Base Excess, Justino 4.4(H) -2.0 - 2.0 mmol/L 10/28/2024 4:37 AM [facility] Blood Venous blood specimen / Unknown Venipuncture / Unknown 10/28/2024 4:23 AM EST 10/28/2024 4:32 AM EST Araseli Morton MD LAB BLOOD ORDERABLES [facility] [address] [place] [address], * (ABNORMAL) Hepatic function panel (10/28/2024 4:23 AM EST) Only the most recent of2 resultswithin the time period is included. Total Protein 5.7(L) 6.0 - 8.0 g/dL LAB CHEMISTRY METHOD 10/28/2024 5:17 AM [facility] Albumin 1.9(L) 3.2 - 5.0 g/dL LAB CHEMISTRY METHOD 10/28/2024 5:17 AM [facility] Total Bilirubin 0.2 0.0 - 1.4 mg/dL LAB CHEMISTRY METHOD 10/28/2024 5:17 AM [facility] Bilirubin, Direct <0.1 0.0 - 0.3 mg/dL LAB CHEMISTRY METHOD 10/28/2024 5:17 AM [facility] Bilirubin, Indirect LAB CHEMISTRY METHOD 10/28/2024 5:17 AM [facility] Comment:Unable to calculate Indirect Bilirubin. ALT (SGPT) 9(L) 10 - 60 unit/L LAB CHEMISTRY METHOD 10/28/2024 5:17 AM [facility] AST (SGOT) 12 10 - 42 unit/L LAB CHEMISTRY METHOD 10/28/2024 5:17 AM [facility] Alkaline Phosphatase 62 42 - 121 unit/L LAB CHEMISTRY METHOD 10/28/2024 5:17 AM [facility] Blood Venous blood specimen / Unknown Venipuncture / Unknown 10/28/2024 4:23 AM EST 10/28/2024 4:35 AM EST Araseli Morton MD LAB BLOOD ORDERABLES [facility] [address] [place] [address], [place] [phone] * Green LI heparin tube (10/18/2024 5:32 AM EST) Extra Tube Hold for add-ons. 10/18/2024 7:01 AM EST [facility] Comment:Auto resulted. Blood Venous blood specimen / Unknown 10/18/2024 5:32 AM EST 10/18/2024 5:56 AM EST Araseli Morton MD LAB BLOOD ORDERABLES [facility] [address] [place] [address], [place] [phone] * (ABNORMAL) POCT Glucose, blood (10/17/2024 5:20 PM EST) Only the most recent of14 resultswithin the time period is included. [facility] Glucose POCT 116(H) 70 - 100 mg/dL 10/17/2024 5:21 PM [facility] Blood Capillary blood specimen / Unknown 10/17/2024 5:20 PM EST 10/17/2024 5:22 PM EST Araseli Morton MD LAB POINT OF CARE TE ST DOCKED DEVICE UNSOLICITED RESULTS [facility] [address] [place] [address], * Transfuse RBC (10/17/2024 1:42 PM EST) Sandra Bragg MD BLOOD TRANSFUSION OR DERABLES * Urinalysis with reflex microscopic and culture (10/17/2024 8:50 AM EST) Only the most recent of2 resultswithin the time period is included. [facility] Specific [place] Urine 1.015 1.003 - 1.030 LAB URINALYSIS - AUTOMATED METHOD 10/17/2024 9:11 AM [facility] pH, Urine 8.0 5.0 - 8.0 pH LAB URINALYSIS - AUTOMATED METHOD 10/17/2024 9:11 AM [facility] Leukocytes, Urine Negative Negative LAB URINALYSIS - AUTOMATED METHOD 10/17/2024 9:11 AM [facility] Nitrite, Urine Negative Negative LAB URINALYSIS - AUTOMATED METHOD 10/17/2024 9:11 AM [facility] Protein, Urine Negative <=Trace mg/dL LAB URINALYSIS - AUTOMATED METHOD 10/17/2024 9:11 AM [facility] Glucose, Urine Negative Negative mg/dL LAB URINALYSIS - AUTOMATED METHOD 10/17/2024 9:11 AM [facility] Ketones, Urine Negative Negative mg/dL LAB URINALYSIS - AUTOMATED METHOD 10/17/2024 9:11 AM [facility] Urobilinogen, Urine 0.2 0.2 - 1.0 mg/dL LAB URINALYSIS - AUTOMATED METHOD 10/17/2024 9:11 AM EST [facility] Bilirubin, Urine Negative Negative LAB URINALYSIS - AUTOMATED METHOD 10/17/2024 9:11 AM [facility] Blood, Urine Negative Negative LAB URINALYSIS - AUTOMATED METHOD 10/17/2024 9:11 AM [facility] Urine Urinary bladder structure / Unknown Non-blood Collection / Unknown 10/17/2024 8:50 AM EST 10/17/2024 9:04 AM EST Araseli Morton MD LAB URINE ORDERABLES [facility] [address] [place] [address], * [place] urine culture tube (10/17/2024 8:50 AM EST) Only the most recent of2 resultswithin the time period is included. Extra Tube Hold for add-ons. 10/17/2024 11:01 AM EST [facility] Comment:Auto resulted. Urine Urinary bladder structure / Unknown Non-blood Collection / Unknown 10/17/2024 8:50 AM EST 10/17/2024 9:04 AM EST Araseli Morton MD LAB URINE ORDERABLES [facility] [address] [place] [address], [place] [phone] * HCG qualitative, urine (10/17/2024 8:50 AM EST) Preg Test, Ur Negative Negative 10/17/2024 9:14 AM EST [facility] Urine Urine specimen obtained by clean catch procedure / Unknown Non-blood Collection / Unknown 10/17/2024 8:50 AM EST 10/17/2024 9:04 AM EST Sandra Bragg MD LAB URINE ORDERABLES Performing Organization Address City/[facility]/ZIP Co de Phone Number [facility] [address] [place] [address], * Type and screen (10/17/2024 6:38 AM EST) ABO Group O 10/17/2024 11:19 AM EST [facility] Rh Type Positive 10/17/2024 11:19 AM EST [facility] Antibody Screen Negative 10/17/2024 11:19 AM EST [facility] Blood Venous blood specimen / Unknown Venipuncture / Unknown 10/17/2024 6:38 AM EST 10/17/2024 6:46 AM EST Sandra Bragg MD LAB BLOOD BANK TEST ORDERABLES [facility] [address] [place] [address], * Prepare RBC: 1 Units (10/17/2024 5:38 AM EST) Product Code [id number] 10/17/2024 11:36 AM EST [facility] Unit Number [id number] 10/17/20 11:36 AM EST [facility] Crossmatch Compatible 10/17/2024 11:25 AM EST [facility] Dispense Status Transfused 10/17/2024 11:36 AM EST [facility] Unit ABO Rh OPOS 10/17/2024 11:36 AM EST [facility] Unit Expiration Date Time [id number] 10/17/2024 11:36 AM EST [facility] Unit Blood Type 10/17/2024 11:36 AM EST [facility] Blood Venous blood specimen / Unknown 10/17/2024 5:38 AM EST 10/17/2024 6:46 AM EST Sandra Bragg MD BLOOD BANK PRODUCT O RDERABLES Performing Organization Address [facility]/ZIP Co de Phone Number [facility] [address] [place] [address], [facility] * SST tube (10/17/2024 4:28 AM EST) [facility] Extra Tube Hold for add-ons. 10/17/2024 7:01 AM EST [facility] Comment:Auto resulted. Blood Venous blood specimen / Unknown Venipuncture / Unknown 10/17/2024 4:28 AM EST 10/17/2024 5:01 AM EST Araseli Morton MD LAB BLOOD ORDERABLES Performing Organization Address [facility] Co de Phone Number [facility] [address] [place] [address], * Lactate (10/17/2024 4:27 AM EST) Only the most recent of2 resultswithin the time period is included. [facility] Lactate 1.0 0.4 - 2.0 mmol/L LAB CHEMISTRY METHOD 10/17/2024 5:23 AM EST [facility] Blood Venous blood specimen / Unknown Venipuncture / Unknown 10/17/2024 4:27 AM EST 10/17/2024 4:54 AM EST Araseli Morton MD LAB BLOOD ORDERABLES Performing Organization Address [facility] Co de Phone Number [facility] [address] [place] [address], * (ABNORMAL) Procalcitonin (10/16/2024 4:21 AM EST) Only the most recent of3 resultswithin the time period is included. [facility] Procalcitonin 0.20(H) <=0.16 ng/mL LAB CHEMISTRY METHOD 10/16/2024 11:09 AM EST [facility] Blood Venous blood specimen / Unknown Venipuncture / Unknown 10/16/2024 4:21 AM EST 10/16/2024 5:18 AM EST Narrative [facility] - 10/16/2024 11:09 AM EST Procalcitonin > 2.00 ng/ml: Procalcitonin Levels above 2.00 ng/ml, on the first day of ICU admission represent a high risk for progression to severe sepsis and/or septic shock. Procalcitonin < 0.50 ng/ml: Procalcitonin levels below 0.50 ng/ml on the first day of ICU admission represent a low risk for progression to severe sepsis and/or septic shock. Concentrations <0.5 ng/mL do not exclude an infection, on account of local ized infections (without systemic signs) which can be associated with such low concentrations, or a systemic infection in its initial stages (<6 hours). Furthermore, increased procalcitonin can occur without infection. PCT concentrations between 0.5 and 2.0 ng/mL should be interpreted taking into account the patient's history. It is recommended to retest PCT within 6-24 hours if any concentrations <2.0 ng/mL are obtained. Parveen Warner DO LAB BLOOD ORDERABLES [facility] [address] [place] [address], * CT Angio Chest wo and/or w Contrast (10/14/2024 3:31 PM EST) Anatomical Region Laterality Modality Body Computed Tomogra phy 10/14/2024 3:36 PM EST Impressions 10/14/2024 3:51 PM EST No pulmonary arterial emboli.. ??Tracheostomy with bibasilar atelectasis. -------- FINAL REPORT -------- Dictated By: JUSTIN DYER Dictated Date: 10/14/2024 15:36 ET Assigned Physician: JUSTIN DYER Reviewed and Electronically Signed By: JUSTIN DYER Signed Date: 10/14/2024 15:51 ET Workstation ID: [id number] Transcribed By: Self Edit Transcribed Date: 10/14/2024 15:36 ET Narrative 10/14/2024 3:51 PM EST PROCEDURE: Chest CTA INDICATION: Hypoxic respiratory failure TECHNIQUE: Chest CTA with intravenous administration of 90cc ISOVUE-370. Multi planar reformats were created and interpreted. The examination was performed utilizing dose reduction techniques.3-D or MIP images were produced with postprocessing on an independent computer workstation. ??Total DLP 594 COMPARISON: ??08/07/2024 FINDINGS: LUNGS/PLEURA: Tracheostomy. ??Bibasilar atelectasis. ??No pleural effusion or pneumothorax. MEDIASTINUM: No pulmonary arterial emboli. Thyroid gland is unremarkable. No mediastinal or hilar lymphadenopathy. ??Unchanged soft tissue in the anterior mediastinum, possibly prominent thymic tissue. ??Cardiac chambers are normal in size. No pericardial effusion. Esophagus is normal. CHEST WALL: Prominent supraclavicular, axillary, and subpectoral lymph nodes bilaterally, stable compared to prior. UPPER ABDOMEN:Splenomegaly BONES: Unchanged scoliosis. Procedure Note Justin Dyer MD - 10/14/2024 PROCEDURE: Chest CTA INDICATION: Hypoxic respiratory failure TECHNIQUE: Chest CTA with intravenous administration of 90cc ISOVUE-370.Multi planar reformats were created and interpreted. The examination wasperformed utilizing dose reduction techniques.3-D or MIP images wereproduced with postprocessing on an independent computer workstation.Total DLP 594 COMPARISON: 08/07/2024 FINDINGS: LUNGS/PLEURA: Tracheostomy. Bibasilar atelectasis. No pleural effusionor pneumothorax. MEDIASTINUM: No pulmonary arterial emboli. Thyroid gland is unremarkable.No mediastinal or hilar lymphadenopathy. Unchanged soft tissue in theanterior mediastinum, possibly prominent thymic tissue. Cardiac chambersare normal in size. No pericardial effusion. Esophagus is normal. CHEST WALL: Prominent supraclavicular, axillary, and subpectoral lymphnodes bilaterally, stable compared to prior. UPPER ABDOMEN:Splenomegaly BONES: Unchanged scoliosis. IMPRESSION: No pulmonary arterial emboli.. Tracheostomy with bibasilar atelectasis. -------- FINAL REPORT -------- Dictated By: JUSTIN DYER Dictated Date: 10/14/2024 15:36 ET Assigned Physician: JUSTIN DYER Reviewed and Electronically Signed By: JUSTIN DYER Signed Date: 10/14/2024 15:51 ET Workstation ID: [id number] Transcribed By: Self Edit Transcribed Date: 10/14/2024 15:36 ET Parveen Warner DO IMG CT PROCEDURES * (ABNORMAL) Culture sputum (10/14/2024 3:09 PM EST) Culture, Sputum Pseudomonas aeruginosa(A) LAURIE 10/17/2024 9:43 AM [facility] Comment: The organism value for this result has been updated. These results have been appended to the previously preliminary verified report. Culture, Sputum Serratia marcescens(A) LAURIE 10/17/2024 9:43 AM [facility] Comment: The organism value for this result has been updated. These results have been appended to the previously preliminary verified report. This is an edited result. Previous organism was Gram negative bacilli on 10/16/2024 at 1056 EST. Gram Stain Result Moderate Polymorphonuclear leukocytes(A) 10/17/2024 9:43 AM [facility] Gram Stain Result No epithelial cells seen(A) 10/17/2024 9:43 AM [facility] Gram Stain Result Few Gram negative bacilli(A) 10/17/2024 9:43 AM [facility] Sputum specimen obtained by aspiration from trachea (specimen) (Lungs) Non-blood Collection / Unknown 10/14/2024 3:09 PM EST 10/14/2024 3:48 PM EST Narrative Organism Antibiotic Method Susceptibility Pseudomonas aeruginosa Piperacillin/Tazobactam LAURIE <=4 ug/ml: Susceptible Pseudomonas aeruginosa Ceftazidime LAURIE 2 ug/ml: Susceptible Pseudomonas aeruginosa Cefepime LAURIE 2 ug/ml: Susceptible Pseudomonas aeruginosa Meropenem LAURIE 1 ug/ml: Susceptible Pseudomonas aeruginosa Ciprofloxacin LAURIE 0.25 ug/ml: Susceptible Pseudomonas aeruginosa Levofloxacin LAURIE 0.5 ug/ml: Susceptible Serratia marcescens Amoxicillin/Clavulanate LAURIE >=32 ug/ml: Resistant Serratia marcescens Cefoxitin LAURIE 16 ug/ml: Resistant Serratia marcescens Ceftazidime LAURIE <=0.5 ug/ml: Susceptible Serratia marcescens Ceftriaxone LAURIE <=0.25 ug/ml: Susceptible Serratia marcescens Cefepime LAURIE <=0.12 ug/ml: Susceptible Serratia marcescens Meropenem LAURIE <=0.25 ug/ml: Susceptible Serratia marcescens Amikacin LAURIE 4 ug/ml: Susceptible Serratia marcescens Gentamicin LAURIE <=1 ug/ml: Susceptible Serratia marcescens Ciprofloxacin LAURIE 0.12 ug/ml: Susceptible Serratia marcescens Levofloxacin LAURIE <=0.12 ug/ml: Susceptible Serratia marcescens Trimethoprim/Sulfame thoxazo le LAURIE <=20 ug/ml: Susceptible Ed[facility] MICROBIOLOGY - G ENERAL ORDERABLES Performing Organization Address City/[facility] Co de Phone Number [facility] [address] [place] [address], * Legionella antigen urine, EIA (10/14/2024 10:25 AM EST) Pathologist [facility] Legionella Antigen, Ur Negative Negative 10/14/2024 11:38 AM EST [facility] Urine Urine specimen obtained by clean catch procedure / Unknown Non-blood Collection / Unknown 10/14/2024 10:25 AM EST 10/14/2024 10:35 AM EST Narrative [facility] - 10/14/2024 11:38 AM EST Negative for Legionella pneumophilia serogroup 1 antigen. This presumptive result suggests no current or recent infection due to L. pneumophilia serogroup 1. Culture is recommended if Legionella infection is till suspected, as other serogroups and species of Legionella are not detected by this test. Edwar SUARE[facility] LAB URINE ORDERABLES Performing Organization Address [facility]/ZIP Co de Phone Number [facility] [address] [place] [address], * Culture urine (10/14/2024 10:25 AM EST) [facility] Culture, Urine No growth 10/15/2024 11:19 AM EST [facility] Urine Urine specimen obtained by clean catch procedure / Unknown Non-blood Collection / Unknown 10/14/2024 10:25 AM EST 10/14/2024 10:50 AM EST Edwar [facility] MICROBIOLOGY - G ENERAL ORDERABLES [facility] [address] [place] [address], [place] [phone] * (ABNORMAL) Albumin (10/14/2024 5:41 AM EST) [facility] Albumin 2.2(L) 3.2 - 5.0 g/dL LAB CHEMISTRY METHOD 10/14/2024 7:07 AM EST [facility] Blood Venous blood specimen / Unknown Venipuncture / Unknown 10/14/2024 5:41 AM EST 10/14/2024 6:35 AM EST Edwar SUAREZ LAB BLOOD ORDERABLES [facility] [address] [place] [address], [place] [phone] * MRSA molecular study (10/13/2024 11:39 PM EST) [facility] MRSA Screen PCR Not Detected Not Detected LAB MICROBIOLOGY METHOD 10/14/2024 9:36 AM EST [facility] Swab Both anterior nares / Unknown Non-blood Collection / Unknown 10/13/2024 11:39 PM EST 10/14/2024 12:27 AM EST Edwar SUAREZ LAB MICROBIOLOGY - G ENERAL ORDERABLES Performing Organization Address City/[facility]/ZIP Co de Phone Number [facility] [address] [place] [address], * (ABNORMAL) Arterial blood gas (10/13/2024 10:36 PM EST) pH, Arterial 7.47(H) 7.35 - 7.45 pH 10/13/2024 10:51 PM EST [facility] pCO2, Arterial 65(HH) 35 - 45 mmHg 10/13/2024 10:51 PM [facility] pO2, Arterial 92 80 - 100 mmHg 10/13/2024 10:51 PM [facility] HCO3, Arterial 41.3(H) 22.0 - 26.0 mmol/L 10/13/2024 10:51 PM [facility] O2 Sat, Arterial 97.2 95.0 - 98.0 % 10/13/2024 10:51 PM [facility] Base Excess, Arterial 21.0(H) -2.0 - 2.0 mmol/L 10/13/2024 10:51 PM [facility] [place] Test Pass Pass, Unresponsi ve, Line 10/13/2024 10:51 PM [facility] FIO2 0.30 10/13/2024 10:51 PM [facility] Blood Arterial blood specimen / Unknown Arterial Puncture / Unknown 10/13/2024 10:36 PM EST 10/13/2024 10:41 PM EST Edwar SUAREZ LAB BLOOD ORDERABLES [facility] [address] [place] [address], [place] [phone] * Blood Culture, Peripheral Draw #2 (10/13/2024 10:26 PM EST) Only the most recent of2 resultswithin the time period is included. [facility] Culture, Blood No growth at 5 days 10/18/2024 11:01 PM EST [facility] Blood Venous blood specimen / Unknown Venipuncture / Unknown 10/13/2024 10:26 PM EST 10/13/2024 10:27 PM EST Edwar SUAREZ LAB MICROBIOLOGY - G ENERAL ORDERABLES [facility] [address] [place] [address], * ECG 12 lead (10/13/2024 8:34 PM EST) Only the most recent of2 resultswithin the time period is included. [facility] Ventricular Rate ECG 114 BPM GEMUSE Atrial Rate 114 BPM GEMUSE P-R Interval 134 ms GEMUSE QRS Duration 84 ms GEMUSE Q-T Interval 324 ms GEMUSE QTc 446 ms GEMUSE P Wave [place] 45 degrees GEMUSE R [place] 21 degrees GEMUSE T [place] 2 degrees GEMUSE ECG Interpretation Sinus tachycardia Otherwise normal ECG When compared with ECG of 13-OCT-2024 16:55, Premature ventricular complexes are no longer Present Confirmed by MD Bib, Rubens ([id number]) on 10/14/2024 2:47:01 PM GEMUSE 10/13/2024 8:34 PM EST 10/14/2024 2:47 PM EST Jimmy Chapman DO ECG ORDERABLES Performing Organization Address City/[facility]/ZIP Co de Phone Number GEMUSE * Troponin I high sensitivity (10/13/2024 8:14 PM EST) Only the most recent of2 resultswithin the time period is included. [facility] High Sensitivity Troponin I 9 <=54 ng/L LAB CHEMISTRY METHOD 10/13/2024 8:55 PM EST [facility] Blood Venous blood specimen / Unknown Venipuncture / Unknown 10/13/2024 8:14 PM EST 10/13/2024 8:27 PM EST [facility] - 10/13/2024 8:55 PM EST High levels of biotin in samples may falsely decrease hsTroponin values. ??Use caution when interpreting hsTroponin results in patients taking biotin who exhibit renal impairment (eGFR <60) or in patients taking more than 20 mg/day of biotin. Jimmy Chapman DO LAB BLOOD ORDERABLES [facility] [address] [place] [address], * Respiratory virus panel molecular study (10/13/2024 5:50 PM EST) Adenovirus Detection by PCR Not Detected Not Detected LAB MICROBIOLOGY METHOD 10/13/2024 7:04 PM [facility] Influenza A PCR Not Detected Not Detected LAB MICROBIOLOGY METHOD 10/13/2024 7:04 PM [facility] Influenza B PCR Not Detected Not Detected LAB MICROBIOLOGY METHOD 10/13/2024 7:04 PM [facility] Coronavirus 229E Not Detected Not Detected LAB MICROBIOLOGY METHOD 10/13/2024 7:04 PM [facility] Coronavirus HKU1 Not Detected Not Detected LAB MICROBIOLOGY METHOD 10/13/2024 7:04 PM [facility] Coronavirus OC43 Not Detected Not Detected LAB MICROBIOLOGY METHOD 10/13/2024 7:04 PM [facility] Coronavirus NL63 Not Detected Not Detected LAB MICROBIOLOGY METHOD 10/13/2024 7:04 PM [facility] Parainfluenza Virus 1 Not Detected Not Detected LAB MICROBIOLOGY METHOD 10/13/2024 7:04 PM [facility] Parainfluenza Virus 2 Not Detected Not Detected LAB MICROBIOLOGY METHOD 10/13/2024 7:04 PM [facility] Parainfluenza Virus 3 Not Detected Not Detected LAB MICROBIOLOGY METHOD 10/13/2024 7:04 PM [facility] Parainfluenza Virus 4 Not Detected Not Detected LAB MICROBIOLOGY METHOD 10/13/2024 7:04 PM [facility] RSV PCR Not Detected Not Detected LAB MICROBIOLOGY METHOD 10/13/2024 7:04 PM [facility] Human Metapneumovirus A and B Not Detected Not Detected LAB MICROBIOLOGY METHOD 10/13/2024 7:04 PM [facility] Rhinovirus/Entero virus Not Detected Not Detected LAB MICROBIOLOGY METHOD 10/13/2024 7:04 PM [facility] Bordetella pertussis Not Detected Not Detected LAB MICROBIOLOGY METHOD 10/13/2024 7:04 PM [facility] Bordetella parapertussis Not Detected Not Detected LAB MICROBIOLOGY METHOD 10/13/2024 7:04 PM [facility] Mycoplasma pneumo by PCR Not Detected Not Detected LAB MICROBIOLOGY METHOD 10/13/2024 7:04 PM [facility] Chlamydia pneumoniae Not Detected Not Detected LAB MICROBIOLOGY METHOD 10/13/2024 7:04 PM [facility] SARS COV-2 Not Detected Not Detected LAB MICROBIOLOGY METHOD 10/13/2024 7:04 PM [facility] Swab Both anterior nares / Unknown Non-blood Collection / Unknown 10/13/2024 5:50 PM EST 10/13/2024 6:04 PM EST [facility] - 10/13/2024 7:04 PM EST Testing was performed using the [employer] Respiratory Pathogen PCR Assay. All results must be correlated with the clinical findings. Results should not be used as the sole basis for diagnosis. False Negative results may occur from the presence of sequence variants in the region targeted by the assay or the presence of inhibitors. Results may be affected by concurrent antiviral/antimicrobial therapy or levels of organisms that are below the limit of detection. Jimmy P Neenan DO LAB MICROBIOLOGY - G ENERAL ORDERABLES Performing Organization Address [facility]/ZIP Co de Phone Number [facility] [address] [place] [address], [place] [phone] * B-type natriuretic peptide (10/13/2024 4:59 PM EST) Pathologist [facility] BNP 65 <=100 pcg/mL LAB CHEMISTRY METHOD 10/13/2024 5:54 PM EST [facility] Blood Venous blood specimen / Unknown Venipuncture / Unknown 10/13/2024 4:59 PM EST 10/13/2024 5:22 PM EST Jimmy Chapman DO LAB BLOOD ORDERABLES Performing Organization Address [facility] Co de Phone Number [facility] [address] [place] [address], [place] [phone] * Lipase (10/13/2024 4:59 PM EST) [facility] Lipase 25 13 - 75 unit/L LAB CHEMISTRY METHOD 10/13/2024 6:33 PM EST [facility] Blood Venous blood specimen / Unknown Venipuncture / Unknown 10/13/2024 4:59 PM EST 10/13/2024 5:22 PM EST Jimmy Chapman DO LAB BLOOD ORDERABLES Performing Organization Address City/[facility]/ZIP Co de Phone Number [facility] [address] [place] [address], [place] [phone] * (ABNORMAL) Comprehensive metabolic panel (10/13/2024 4:59 PM EST) [facility] Sodium 134 133 - 145 mmol/L LAB CHEMISTRY METHOD 10/13/2024 6:33 PM EST [facility] Potassium 4.8 3.5 - 5.5 mmol/L LAB CHEMISTRY METHOD 10/13/2024 6:33 PM EST [facility] Chloride 91(L) 96 - 110 mmol/L LAB CHEMISTRY METHOD 10/13/2024 6:33 PM [facility] CO2 38(H) 21 - 32 mmol/L LAB CHEMISTRY METHOD 10/13/2024 6:33 PM [facility] Comment:Results verified by repeat testing Anion Gap 5 3 - 11 LAB CHEMISTRY METHOD 10/13/2024 6:33 PM [facility] Glucose 81 70 - 100 mg/dL LAB CHEMISTRY METHOD 10/13/2024 6:33 PM [facility] BUN 13 5 - 25 mg/dL LAB CHEMISTRY METHOD 10/13/2024 6:33 PM [facility] Creatinine <0.15(L) 0.50 - 1.10 mg/dL LAB CHEMISTRY METHOD 10/13/2024 6:33 PM [facility] eGFR LAB CHEMISTRY METHOD 10/13/2024 6:33 PM [facility] Comment:Creatinine above or below reportable range; unable to calculate eGFR. BUN/Creatinine Ratio LAB CHEMISTRY METHOD 10/13/2024 6:33 PM [facility] Comment:Creatinine and/or Ur ea Nitrogen (BUN) above or below reportable range; unable to calculate BUN/Creatinine Ratio. Calcium 9.0 8.5 - 10.5 mg/dL LAB CHEMISTRY METHOD 10/13/2024 6:33 PM [facility] AST (SGOT) 42 10 - 42 unit/L LAB CHEMISTRY METHOD 10/13/2024 6:33 PM [facility] ALT (SGPT) 27 10 - 60 unit/L LAB CHEMISTRY METHOD 10/13/2024 6:33 PM [facility] Alkaline Phosphatase 89 42 - 121 unit/L LAB CHEMISTRY METHOD 10/13/2024 6:33 PM [facility] Total Protein 7.2 6.0 - 8.0 g/dL LAB CHEMISTRY METHOD 10/13/2024 6:33 PM EST [facility] Albumin 2.6(L) 3.2 - 5.0 g/dL LAB CHEMISTRY METHOD 10/13/2024 6:33 PM EST [facility] Total Bilirubin 0.3 0.0 - 1.4 mg/dL LAB CHEMISTRY METHOD 10/13/2024 6:33 PM EST [facility] Blood Venous blood specimen / Unknown Venipuncture / Unknown 10/13/2024 4:59 PM EST 10/13/2024 5:22 PM EST Jimmy Chapman DO LAB BLOOD ORDERABLES [facility] [address] [place] [address], * ECG-Outside (10/13/2024) Provider Onbase MD ECG ORDERABLES * ECG-Annotated (10/13/2024) Provider Onbase MD ECG ORDERABLES from Last 3 Months Advance Directives Documents on File Type Date Recorded 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 (hx) 12/13/2023 AD PORTILLO DIRECTIVE Health Care Decision (hx) 12/13/2023 AD PORTILLO DIRECTIVE Health Care Decision (hx) 12/13/2023 AD PORTILLO DIRECTIVE Health Care Decision (hx) 12/13/2023 AD PORTILLO DIRECTIVE Health Care Decision (hx) 12/13/2023 AD PORTILLO DIRECTIVE Health Care Decision (hx) 12/13/2023 AD PORTILLO DIRECTIVE Health Care Decision (hx) 12/13/2023 AD PORTILLO DIRECTIVE Health Care Decision (hx) 12/13/2023 AD PORTILLO DIRECTIVE Health Care Decision (hx) 12/13/2023 AD PORTILLO DIRECTIVE Health Care Decision (hx) 12/13/2023 AD PORTILLO DIRECTIVE Health Care Decision (hx) 12/13/2023 AD PORTILLO DIRECTIVE Health Care Decision (hx) 12/13/2023 AD PORTILLO DIRECTIVE Health Care Decision (hx) 12/13/2023 AD PORTILLO DIRECTIVE * Full Code - Default (Latest Code Status on File) Date Activated Date Inactivated Comments 10/13/2024 9:19 PM 11/02/2024 5:18 PM This is ord er is used when code status has not been discussed with the patient, or code status is otherwise unknown/unconfirmed To update the patient's code status, place a code status order. Do not modify or discontinue any currently active code status orders. * Full Code Date Activated Date Inactivated Comments 09/10/2024 8:08 PM 09/15/2024 4:07 PM Cutover orde r - Refer to legacy medical record for details and original code status order details. Care Teams Childbirth And Infant Care Teacher Relationship Specialty Start Date End Date Debbie Christie MD [address] [place] [address] [place] PCP - General 11/10/12
--- OUTSIDE RECORDS SUMMARY | 2024-12-03 12:53 | XMS_ITS | Clinical Summary ---
Author Organization [facility] Address [address] [place] [address] Care Team Providers Care Sharepoint Consultant Name Role Phone Alethea Marsh Primary Care Provider [phone] Allergies No known active allergies Medications ergocalciferol (DRISDOL) 200 mcg/mL (8,000 unit/mL) drops 1 Active magnesium oxide (MAG-OX) 400 mg (241.3 mg mag) tablet TOME ESTELA TABLETA TODOS LOS D FOR HEADACHES 1 Active albuterol (PROAIR HFA,VENTOLIN HFA) 90 mcg inhaler 1 Active metoprolol succinate 25 mg capsule,sprinkle ,ER 24hr Take 25 mg by mouth once a day. 1 Active omeprazole (PriLOSEC) 20 mg capsule TOME 1 CAPSULA POR VIA ORAL TODOS LOS MELENDEZ 1 Active acetaminophen (TYLENOL) 325 mg tablet Take 325 mg by mouth every 6 hours as needed for pain. Active Mobic 7.5 mg tablet Take 7.5 mg by mouth. 3 Active traZODone (DESYREL) 50 mg tablet Take 1 tablet by mouth. 3 Active calcium carbonate-vitami n D3 500 mg-200 units tablet Take 1 tablet by mouth 2 times a day with meals. Active albuterol 2.5 mg/3 mL (0.083%) nebulizer solution Inhale 1 vial via nebulizer every 6 hours as needed for wheezing or shortness of breath. Active camphor-menthoL (SARNA) lotion Apply topically to the affected area as needed for itching. [place] balm topical ointment PRN 3 times a dayfor pain Active emollient cream by Topical (top) route. 2 times PRN for dry skin Active LORazepam (ATIVAN) 1 mg tablet Take 1 mg by mouth every 6 hours as needed for anxiety. Active folic acid (FOLVITE) 1 mg tabletIndication s:Rheumatoid arthritis involving multiple sites with positive rheumatoid factor (CMS/HCC) (HCC) Take 1 tablet (1 mg total) by mouth once a day. 90 tablet 3 4 Active Additional Information Patient not taking.Reported on 07/14/2024 methotrexate (TREXALL) 2.5 mg tabletIndication s:Rheumatoid arthritis involving multiple sites with positive rheumatoid factor (CMS/HCC) (HCC) Take 6 tablets (15 mg total) by mouth once a week. 72 tablet 1 4 Active Additional Information Patient not taking.Reported on 07/14/2024 hydroxychloroqui ne (PLAQUENIL) 200 mg tabletIndication s:Rheumatoid arthritis involving multiple sites with positive rheumatoid factor (CMS/HCC) (HCC) TAKE 1 TABLET (200 MG TOTAL) BY MOUTH 2 TIMES A DAY. 60 tablet 2 Active Additional Information Patient not taking.Reported on 07/14/2024 pyridostigmine (MESTINON) 30 mg tablet Take 30 mg by mouth 3 times a day. Active sulfaSALAzine (AZULFIDINE) 500 mg tabletIndication s:Rheumatoid arthritis involving multiple sites with positive rheumatoid factor (CMS/HCC) (HCC) Take 1 tablet (500 mg total) by mouth 2 times a day. Take with food 60 tablet 2 Active Additional Information Patient not taking.Reported on 07/14/2024 traMADoL (ULTRAM) 50 mg tablet Take 50 mg by mouth every 8 hours as needed. Active melatonin 3 mg tablet Take 3 mg by mouth nightly as needed. Active enoxaparin (LOVENOX) 40 mg/0.4 mL subcutaneous injection Inject 40 mg under the skin every 24 hours. Active famotidine (PEPCID) 40 mg/5 mL (8 mg/mL) suspension Take 40 mg by mouth once a day. Active ferrous sulfate 300 mg (60 mg iron)/5 mL solution Take 60 mg by mouth once a day. Active Active Problems Problem Noted Date Diagnosed Date Myasthenia gravis 04/28/2024 Assessment & Plan (07/13/2024 3:16 PM EDT): This is a new diagnosis based upon the hospital admission Feb 2024 -follow up neuro Assessment & Plan (04/28/2024 11:42 AM EDT): This is a new diagnosis based upon the hospital admission Feb 2024 -follow up neuro TOM positive 07/30/2023 Assessment & Plan (07/30/2023 4:42 PM EDT): She is also TOM positive in addition to the RF and given the report that symptoms started with weakness of the lower extremities rather than joint pain/swelling does raise question of a second process which at that time may have been an inflammatory myopathy, or this may have all been RA and there is some clouding of description/things lost in translation. -test further downstream antibodies Angular cheilitis 07/30/2023 Assessment & Plan (07/30/2023 4:42 PM EDT): Has fissuring in and around lower lip - this may be angular chelitis -check iron studies as well as folate B12 Rheumatoid arthritis involvi ng multiple sites with positive rheumatoid factor ([facility]/HCC) 07/29/2023 Assessment & Plan (07/14/2024 8:28 AM EDT): RF/CCP and compatible deformities, with radiologic disease as well. Currently triple therapy (although low dose of methotrexate). Our plan had been to add a Giulia (did not want injections/infusions), however, did not start as concerned about adverse effects. Now recent hospital admission with amongst others VTE. Now repeat hospital admission Jun 2024 with pneumonia and reporting all medications for RA stopped during the admission. -discussed that at this time would suggest restarting hydroxychloroquine --they do not want to do this at this time as feels would rather consult first with our colleagues who initially held the medications -I will speak to PCP in the coming days to try and work out the best way forward in this situation in terms of co-ordination of care Assessment & Plan (04/28/2024 11:42 AM EDT): RF/CCP and compatible deformities, with radiologic disease as well. Currently triple therapy (although low dose of methotrexate). Our plan had been to add a Giulia (did not want injections/infusions), however, did not start as concerned about adverse effects. Now recent hospital admission with amongst others VTE. -would not change anything re: medication solomon until we have a more complete picture of the hospital course and events thereafter --we will request as much as we can --then reconvene Assessment & Plan (12/03/2023 12:50 PM EST): RF/CCP and compatible deformities, with radiologic disease as well. currently triple therapy (although low dose of methotrexate). Our plan had been to add a Giulia (did not want injections/infusions), however, did not start as concerned about adverse effects. -we have discussed that in general Giulia are extremely well tolerated and that the potential adverse effects that she and mother report cause most concern re: blood count and ulcers are also potential adverse effects of methotrexate and sulfasalazine which she currently takes -they are adamant that at this point in time, do not want to start upadacitinib -I have discussed that by history, exam, objective testing, with her current regime, her RA is not controlled and therefore, if we make not changes, she will continue to have ongoing inflammation which will lead to further joint changes, pain and deformities --they are agreeable to increase in dose of methotrexate ---we will increase to 15mg weekly in first instance ---repeat labs at [facility] in one month ---then up to 25mg weekly if tolerating -new referral for PT given -also referred to foot/ankle ?any intervention that might help with mobility Assessment & Plan (07/30/2023 4:46 PM EDT): RF positive and compatible deformities, currently triple therapy (although low dose of methotrexate). There does appear to be some ongoing inflammatory arthritis at the present time -discussed need to establish a new baseline -x-rays -labs -we have briefly discussed anti-TNF as an addition -will also need to refer to podiatry/foot/ankle re: role of orthotics in order to help continue plan for ongoing PT/ambulation as much as possible Long-term use of high-risk medication 07/29/2023 Assessment & Plan (07/13/2024 3:16 PM EDT): Hydroxychloroquine, methotrexate, sulfasalazine -will obtain receords from PCP re: last labs -hep B non-immune, hep C neg, quant neg all in Jul 2023 -has seen ophtho in recent past -Vaccines: Prevnar 13: to assess at subsequent visit Pneumovax: Feb 2014 Zoster: to assess at subsequent visit Flu: requires at subsequent visit COVID - 3 doses monovalent Assessment & Plan (04/28/2024 11:42 AM EDT): Hydroxychloroquine, methotrexate, sulfasalazine -will obtain receords from PCP re: last labs -hep B non-immune, hep C neg, quant neg all in Jul 2023 -has seen ophtho in recent past -Vaccines: Prevnar 13: to assess at subsequent visit Pneumovax: Feb 2014 Zoster: to assess at subsequent visit Flu: requires at subsequent visit COVID - 3 doses monovalent Assessment & Plan (12/03/2023 12:45 PM EST): Hydroxychloroquine, methotrexate, sulfasalazine -labs in a month at [facility] -hep B non-immune, hep C neg, quant neg all in Jul 2023 -has seen ophtho in recent past -Vaccines: Prevnar 13: to assess at subsequent visit Pneumovax: Feb 2014 Zoster: to assess at subsequent visit Flu: requires at subsequent visit COVID - 3 doses monovalent Assessment & Plan (07/30/2023 4:44 PM EDT): Hydroxychloroquine, methotrexate, sulfasalazine -labs today -include screening labs -has seen ophtho in recent past -Vaccines: Prevnar 13: to assess at subsequent visit Pneumovax: Feb 2014 Zoster: to assess at subsequent visit Flu: not yet flu season COVID - 3 doses monovalent Immunizations Name Administration Dates Next Due Diphtheria, Tetanus Toxoids and Acellular Pertussis Vaccine 05/04/1997,11/08/1994,1993,06/28 Haemophilus Influenzae Type B Vaccine, Conjugate Unspecified Formulation 11/08/1994,1993 Hep B, Unspecified 01/01/1994,1993, 993 Human Papilloma Virus Vaccin e, Quadrivalent 06/26/2012,12/18/2011,06/22/2010 Influenza, Trivalent, MDV, Injectable 09/24/2011 ,07/12/2010 Measles, Mumps, and Rubella Vaccine 05/04/1997,0 04/29/1994 Meningococcal Polysaccharide Vaccine (MPSV4) 06/22/2010 Pneumococcal Polysaccharide Vaccine, 23 Valent 02/26/2014 Poliovirus Vaccine, Inactivated 05/04/19 97,01/23/1994,1993,06/28 Tetanus Toxoid, Reduced Diph theria Toxoid, and Acellular Pertussis Vaccine, Adsorbed 11/11/2017,07/12/2010 Varicella Virus Vaccine 12/11/2009,09/27/2009 Family History Medical History Relation Name Comments Arthritis Father's Sister Relation Name Status Comments Father's Sister Social History Tobacco Use Types Packs/Day Years Used Date Smoking Tobacco: Never Smokeless Tobacco: Never Alcohol Use Standard Drinks/Week Comments Never 0 (1 standard drink = 0.6 oz pur e alcohol) Comments Unknown Sex and Gender Information Value Date Recorded Sex Assigned at Female 03/22/2024 12:10 PM EDT Legal Sex Female 2:54 PM EDT Gender Identity Not on file Sexual Orientation Not on file Last Filed Vital Signs Vital Sign Reading Time Taken Comments Blood Pressure 103/64 12/03/2023 11:26 AM EST Pulse 110 12/03/2023 11:26 AM EST Temperature 36.8 ??C (98.3 ??F) 12/03/2023 11:[address] Respiratory Rate 18 08/21/2023 3:00 PM EDT Oxygen Saturation - - Inhaled Oxygen Concentration - - Weight 78.9 kg (174 lb) 12/03/2023 11:26 AM EST Height 182.9 cm (6') 12/03/2023 11:26 AM EST Body Mass Index 23.6 12/03/2023 11:26 AM EST Plan of Treatment Health Maintenance Due Date Last Done Comments Cervical Cancer Screening 1993 HIV Screening 1993 HPV and Pap Smear 1993 Pap Smear 1993 COVID-19 Vaccine ( season) 2024 09/15/2021, 03/10/2021, 02/10/2021 Influenza Vaccine (#1) 2024 09/24/2011, 2009 Alcohol/Substance Use Screening 11/10/2024 Depression Screening and Follow-Up 11/10/2024 Social Drivers of Health Annual Screening 11/10/2024 DTaP,Tdap,and Td Vaccines (7 - Td or Tdap) 11/11/2027 11/11/2017, 07/12/2010, 05/04/1997, Additional history exists RSV Vaccine (60+ years old and patients) (1 - 1-dose 75+ series) 2068 Hepatitis B Vaccines Completed 01/01/1994, 1993, 1993 Varicella Vaccines Completed 12/11/2009, 09/27/2009 Pneumococcal Vaccine: Pediatric (0-5 Years) and At-Risk Patients (6-64 Years) Aged Out 02/26/2014 No longer eligible based on patient's age to complete this topic Hepatitis C Screening Completed 07/30/2023 Procedures * Due to [place] state law, this organization might not be sharing negative HIV tests. Procedure Name Priority Date/Time Associated Diagnosis Comments HEPATITIS C ANTIBODY W/REFLEX TO HCV RNA, QUANTITATIVE PCR Routine 07/30/2023 5:42 PM EDT Long-term use of high-risk medication from Last 3 Months or Most Recently Relevant to Health Maintenance Results * Due to [place] state law, this organization might not be sharing negative HIV tests. * Hepatitis C Antibody w/Reflex to HCV RNA, Quantitative PCR (07/30/2023 5:42 PM EDT) Hepatitis C Antibody NON-REACT HUANG NON-REACT HUANG 07/31/2023 7:[address] [facility] Comment: HCV antibody was non-reactive. There is no laboratory evidence of HCV infection. In most cases, no further action is required. However, if recent HCV exposure is suspected, a test for HCV RNA (test code 27984) is suggested. For additional information please refer to http://education.MashON/faq/OGW35k4 (This link is being provided for informational/ educational purposes only.) Blood Structure of peripheral vein / Unknown Venipuncture / Unknown 07/30/2023 5:42 PM EDT 07/30/2023 5:58 PM EDT Narrative [facility] - 07/31/2023 7:35 AM EDT [facility] Received Date: us Ted Hudson MD LAB BLOOD ORDERABLES Final Result [facility]KA [facility]ES[facility] [address] [facility] [address] Floor, [place] [address], [place] [phone] [employer] [address], [place] [address], [place] [phone] from Last 3 Months or Most Recently Relevant to Health Maintenance [place] [address] [address] ERICK OCHOA [id number] Advance Directives Documents on File Type Date Recorded 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
--- OUTSIDE RECORDS SUMMARY | 2024-12-03 12:53 | XMS_ITS | Referral Summary ---
Author Organization [facility] Address [address] [place] [address] Care Team Providers Care Media Relations Manager Name Role Phone Alethea Marsh Primary Care Provider [phone] Allergies No known active allergies Medications ergocalciferol [...] the affected area as needed for itching. [place] balm topical ointment PRN 3 times a [...] ng multiple sites with positive rheumatoid factor ([facility]/HCC) 07/29/2023 Assessment & Plan (07/14/2024 8:28 AM [...] methotrexate, sulfasalazine -labs in a month at [facility] -hep B non-immune, hep C neg, quant [...] Vaccine, Adsorbed 11/11/2017,07/12/2010 Varicella Virus Vaccine 12/11/2009,09/27/2009 Social History Tobacco Use Types Packs/Day Years [...] 12/03/2023 11:26 AM EST Plan of Treatment Not on file Procedures * Due to [place] state law, this organization might not be sharing negative HIV tests. Procedure Name Priority Date/Time Associated Diagnosis Comments HEPATITIS C ANTIBODY W/REFLEX TO HCV RNA, QUANTITATIVE PCR Routine 07/30/2023 5:42 PM EDT Long-term use of high-risk medication from Last 3 Months or Most Recently Relevant to Health Maintenance Results * Due to [place] [employer] law, this organization might not be sharing negative HIV tests. * Hepatitis C Antibody w/Reflex to HCV RNA, Quantitative PCR (07/30/2023 5:42 PM EDT) Hepatitis C Antibody NON-REACT HUANG NON-REACT HUANG 07/31/2023 7:35 AM EDT [employer] Comment: HCV antibody was non-reactive. There is no laboratory evidence of HCV infection. In most cases, no further action is required. However, if recent HCV exposure is suspected, a test for HCV RNA (test code 95513) is suggested. For additional information please refer to http://education.Guardium/faq/UKO09o0 (This link is being provided for informational/ educational purposes only.) Blood Structure of peripheral vein / Unknown Venipuncture / Unknown 07/30/2023 5:42 PM EDT 07/30/2023 5:58 PM EDT Narrative [facility] - 07/31/2023 7:35 AM EDT [facility] Received Date: Ted Hudson MD LAB BLOOD ORDERABLES Final Result [facility]KA TAYLOR [address] [facility] [address], [place] [address], [place] [phone] [facility] [address], [place] [address], [place] [phone] from Last 3 Months or Most Recently Relevant to Health Maintenance Insurance [facility] ERICK OCHOA [id number] Advance Directives Documents on File Type Date Recorded 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
== END 2024-12-03 11:27 | disposition home or self-care (01) ==
PROVIDERS: PCP Nurse Practitioner Family; Visit Provider Hospitalist
DX: J96.11 Chronic respiratory failure with hypoxia (principal); J96.12 Chronic respiratory failure with hypercapnia; Z93.0 Tracheostomy status; J98.4 Other disorders of lung; G70.9 Myoneural disorder, unspecified; M05.79 Rheumatoid arthritis with rheumatoid factor of multiple sites without organ or systems involvement
CPT/HCPCS: 99215

== ENCOUNTER → 2024-12-03 10:53 | Outpatient (BNVA) | payer OTHER, SELFPAY | PROVIDERS: PCP Nurse Practitioner Family; Visit Provider Hospitalist | DX: J96.11 Chronic respiratory failure with hypoxia (principal); J96.12 Chronic respiratory failure with hypercapnia; J98.4 Other disorders of lung; M05.79 Rheumatoid arthritis with rheumatoid factor of multiple sites without organ or systems involvement; G70.9 Myoneural disorder, unspecified; Z93.0 Tracheostomy status | CPT/HCPCS: 99212 ==

== ENCOUNTER 2025-01-14 13:04 | Outpatient (AMB) | payer OTHER, SELFPAY ==
[2025-01-14 13:21] VITALS: BP 96/60; PULSE 115; O2SAT 97
--- NOTE | 2025-01-14 13:21 | A.OFFVIS_ITS ---
Vital Signs 01/14/25 13:21 Height 6 ft BMI Reason not done Patient refused/unable BP 96/60 Blood Pressure Location Rt radial Position Supine Pulse 115 H Pulse Source Pulse Oximeter Pulse Oximetry (%) 97 Oxygen Delivery Method Nasal Cannula Oxygen Flow Rate 3 Intake Visit Reasons: Trache Change Allergies No Known Allergies Allergy (Verified 01/14/25 13:24) HPI Comments Details: The patient is a zak 29-year-old woman with a history of asthma, myasthenia gravis, rheumatoid arthritis now with tracheostomy for respiratory failure. Most of her records are a [facility] and also at [facility]. She also gets her care from [facility]. Based on the records the patient did have a episode of acute hypercarbic and hypoxic respiratory failure required intubation at [facility]. During that admission the patient did end up getting a tracheostomy placement likely for inability to clear the airway. She was subsequently placed on oxygen she was able to be discharged home. Not sure of the patient went to rehab before going home. Ultimately while in home she developed respiratory failure again and had to go back to the ER which they found that it was due to a faulty tracheostomy that had to be changed. She initially had a Shiley cuffed trach which was then replaced with a 6. Fenestrated CFN tracheostomy. Since the tracheostomy change she has had hard time with her breathing. It has been difficult for her to breathe or even be suctioned. She does have a Passy Dawn valve that allows her to speak. She has a very weak cough due to her neuromuscular disease. She does get suctioned although she does not have any type of cough assist device. She has been on immunosuppressant therapy for her autoimmune conditions. She does use her nebulizer twice a day. In her asthma seems to be good control. As far as her nutrition the patient does have a PEG tube. Today we did change her tracheos maribell to a 6UN75H tracheostomy which she feels more comfortable with. She is tolerating the Passy Dawn valve very well. She has no longer using a noninvasive ventilator at home. We will assess her blood work including a venous gas to assess her CO2. The patient may benefit from noninvasive ventilation to minimize the hypercarbia and improve gas exchange. 05/06/2024 the patient is here for a pulmonary follow-up visit. Overall the patient is doing fairly well. Her chest congestion is better. She did get approved initially for the cough assist device but then it was taken away because insurance will not cover although she needs it. He will from the [employer] that we use for did not approaches and we did not realize that have been denied. In addition to that I did send a fax with the new tracheostomy that the patient needs in order to change it. However, she continues to receive the old 1. I did reach out to [facility] and did speak to a patient automotive sales representative. I did fax over a new script. I am hoping that she can get this tracheostomy soon not do for us to change it in the next 4 weeks. As it is already she is having some irritation to the skin around her trachea. Mainly because of secretions and the rubbing from the tracheostomy. Therefore the tracheostomy should be changed and better trach sponges should be provided to minimize that friction. I provide her with antimicrobial ointment although if not better she may need an antifungal treatment. Asbestos keep the area dry. In the meantime the patient also has significant gingivitis and therefore is at risk for micro aspirations into the lung. Will treat her with chlorhexidine mouthwash for a month twice a day in order to improve the issue. She may need to be on prophylactic chlorhexidine moving 4. will follow-up in 4-6 weeks. 07/27/2024 the patient is here for hospital follow-up visit. Recently she developed worsening respiratory symptoms and was admitted to [facility] with pneumonia. She did spend some time in the ICU. Subsequently discharged. She is feeling better. She is using the oxygen continuously. The patient has had issues with chronic hypercarbic respiratory failure. She does have an elevated CO2. Will go ahead and repeat her blood gas during the next visit. She also when she was in a hospital had a tracheostomy changed to a cuffed [employer] tracheostomy. With a bigger tracheostomy in the cough is hard for her to use her Passy Dawn valve and therefore she has a hard time eating and speaking. Therefore I did call the [employer] that she is working with and myself in my chief medical technologist talk to multiple people to make sure that she got her supplies because she has not been getting her tracheostomy sent to her home. They did state that they will going to make sure that they will going to send a tracheostomy today and should be available by tomorrow. When she returns to the office will downsize her tracheostomy. Will check a blood gas at that point. If the patient continues have evidence of hypercarbia worsening disease then will start having to discuss further treatments with the noninvasive ventilator to improve her gas exchange. As far as the noninvasive ventilator this can be provided with a portable mouthpiece in order for her to get rescue breaths that sometimes she needs because of the increased work of breathing. Also sometimes that she can use at nighttime only if her tracheostomy can be capped. If however her tracheostomy can not be capped then she would potentially need a ventilator that will reel hooker to the tracheostomy. This could be done with a uncuffed trach as long as the PEEP is a 0. therefore, will wait for her to come back to downsize her trach and see how she does in order to move forward. If the patient develops any worsening symptoms prior to that she will call the office for further evaluation. She continues with the chest physical therapy. She has a new suction machine. And she is also using the prophylactic chlorhexidine mouthwash to prevent aspiration pneumonia. 12/03/2024 the patient is here for a pulmonary follow-up visit. Overall she is doing better she did get be admitted to the hospital with acute on chronic hypercarbic respiratory failure and she was placed on nighttime ventilator which she seems to be tolerating well. She gets that through her DME, [employer]. She does have a picture the invasive ventilator which is actually nostril. The patient does have a cough tracheostomy. We did swab it to a new 1, [id number]. I did send a request prescription to her [employer] company for the right size tracheostomy as she is still getting the older 1 that is uncuffed. She also needs inner cannulas and syringes to feel the cough. She does have a suction machine with her. We did swab her tracheostomy at the bedside without any complications she tolerated well and then she required suction afterwards. Will plan to do blood work including a blood gas during the next visit. For now seems like the ventilators working well and she appears to be stable currently. Will follow-up in 6-8 weeks and will change her tracheostomy at that point. If she has any issues prior to that she was coughing earlier assessment. 01/14/2025 the patient is here for a pulmonary follow-up visit. Overall the patient has been doing well. She did have the right tracheostomy sent over by her [employer] company. She has been using her ventilator at nighttime with good effect. Her family has been very capable to take care of her which is reassuring. We were able to change her trach at the bedside. However, is getting a little tight in the stoma likely because of the cough causing irritation of the stoma as is maneuvering the change the tracheostomy. Therefore will continue to try to change it every 4-6 weeks. In the meantime she does complain of a cough. And she also would like to see about taking food by mouth again. Will go ahead and set her up for a modified barium swallow to start assessing her ability to take by mouth. Ideally though she do that safely she would have to tolerate a Passy Dawn valve. 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 Respiratory failure Social History Patient Tobacco Use Status: Never used Tobacco Review of Systems Const Denies fever(s) and Reports weakness Eyes Reports no additional complaints ENT Reports halitosis, Reports dental pain and Reports neck pain Card Denies chest pain and Reports dyspnea Resp Reports cough and Reports dyspnea GI Reports abdominal pain (peg site) Musc Reports deformity, Reports arthralgias, Reports joint swelling, Reports limited range of motion and Reports neck pain Skin/Breast Denies rash Neuro Reports Neuro-related abnormal movements and Reports weakness Physical Exam Vital Signs: Last Vital Signs Pulse 115 H 01/14/25 13:21 BP 96/60 01/14/25 13:21 Pulse Ox 97 01/14/25 13:21 Oxygen Delivery Method Nasal Cannula 01/14/25 13:21 Oxygen Flow Rate 3 01/14/25 13:21 Const General: alert Nutritional Appearance: underweight HEENT Head: Yes normocephalic Teeth and gingiva: gingiva abnormal hypertrophic, edematous and diffusely erythematous Neck Neck: Yes tracheostomy present (skin ulceration around the tracheostomy) Chest Chest palpation & inspection: normal inspection of the chest Resp Effort & Inspection: Actively coughing (very weak) and decreased respiratory effort Cardio Heart sounds: S1 normal heart sound present and S2 normal heart sound present GI Palpation (GI): Soft to palpation and Tenderness to palpation present (GI) (peg site) Skin General skin exam: no rashes or lesions noted Extrem General: No clubbing and No cyanosis Assessment & Plan Assessment & Plan (1) Tracheostomy dependence: Code(s): Z93.0 - Tracheostomy status Category: Medical (2) Respiratory failure: Code(s): J96.90 - Respiratory failure, unspecified, unspecified whether with hypoxia or hypercapnia Category: Medical Qualifiers: Chronicity: chronic Respiratory failure complication: hypoxia and hypercapnia Qualified Code(s): J96.11 - Chronic respiratory failure with hypoxia; J96.12 - Chronic respiratory failure with hypercapnia (3) Restrictive lung mechanics due to neuromuscular disease: Code(s): J98.4 - Other disorders of lung; G70.9 - Myoneural disorder, unspecified Category: Medical (4) Rheumatoid arthritis: Code(s): M06.9 - Rheumatoid arthritis, unspecified Category: Medical Qualifiers: Rheumatoid arthritis location: multiple sites Rheumatoid factor presence: with rheumatoid factor Qualified Code(s): M05.79 - Rheumatoid arthritis with rheumatoid factor of multiple sites without organ or systems involvement Plan continue oxygen via trach collar Trial PMV during the day Modified Barium swallow trial small dose of Glycopyrrolate tracheostomy Shiley#[id number], changed today at the bedside without complications continue ventilator at night repeat bloodgas during the next visit F/U 4-6 weeks Orders: Orders FL Modified Barium Swallow 01/15/25 R13.10 - Dysphagia, unspecified, Z93.0 - Tracheostomy status Medications: New doxycycline monohydrate 100 mg PO BID 42 tabs 0RF 21 days glycopyrrolate 0.5 mg (1/2 x 1 mg) PO TID PRN 90 tabs 5RF secretions 30 days Coding Level of Care Code Est Pt Level 5 (03291) Complex EM visit Add On G2211 Diagnoses Tracheostomy dependence Z93.0 Chronic respiratory failure with hypoxia and hypercapnia J96.11; J96.12 Chronicity: chronic Respiratory failure complication: hypoxia and hypercapnia Restrictive lung mechanics due to neuromuscular disease J98.4; G70.9 Rheumatoid arthritis involving multiple sites with positive rheumatoid factor M05.79 Rheumatoid arthritis location: multiple sites Rheumatoid factor presence: with rheumatoid factor Time Spent (min) 45
--- OUTSIDE RECORDS SUMMARY | 2025-01-14 14:43 | XMS_ITS | Referral Summary ---
Author Organization [facility] Address [address] [place] [address] Care Team Providers Care Electronic Data Interchange Specialist Name Role Phone Alethea Marsh Primary Care Provider [phone] Encounters Date Type Department Care Team Description 12/03/2024 Telephone [facility] [address] [place] [phone] Telephone Intake, Staff PAC Patient Request Call Back; PAC Appt Request - Established from Last 3 Months Allergies No known active allergies Medications ergocalciferol [...] the affected area as needed for itching. [place] balm topical ointment PRN 3 times a [...] mouth once a week. 72 tablet 1 Active Additional Information Patient not taking.Reported on [...] mg under the skin every 24 hours. 4 Active famotidine (PEPCID) 40 mg/5 mL (8 mg/mL) suspension Take 40 mg by mouth once a day. Active ferrous sulfate 300 mg (60 mg iron)/5 mL solution Take 60 mg by mouth once a day. Active Active Problems Problem Noted Date Diagnosed Date Myasthenia gravis 04/28/2024 Assessment & Plan (07/13/2024 3:16 PM EDT): This is a new diagnosis based upon the hospital admission Dec-Feb 2024 -follow up neuro Assessment & Plan [...] ng multiple sites with positive rheumatoid factor ([facility]/HCC) 07/29/2023 Assessment & Plan (07/14/2024 8:28 AM [...] methotrexate, sulfasalazine -labs in a month at [facility] -hep B non-immune, hep C neg, [...] season COVID - 3 doses monovalent Immunizations Immunization Administration Dates Next Due Diphtheria, Tetanus Toxoids [...] 12/03/2023 11:26 AM EST Plan of Treatment Upcoming Encounters Date Type Department Care Team (Late st Contact Info) Description 03/31/2025 2:45 PM EDT Telehealth [facility] [address] [place] [phone] Michelle Manzano MD [address] [place] [phone] Procedures * Due to [facility] law, this organization might not be sharing negative HIV tests. Procedure Name Priority Date/Time Associated Diagnosis Comments HEPATITIS C ANTIBODY W/REFLEX TO HCV RNA, QUANTITATIVE PCR Routine 07/30/2023 5:42 PM EDT Long-term use of high-risk medication from Last 3 Months or Most Recently Relevant to Health Maintenance Results * Due to [employer] law, this organization might not be sharing negative HIV tests. * Hepatitis C Antibody w/Reflex to HCV RNA, Quantitative PCR (07/30/2023 5:42 PM EDT) Hepatitis C Antibody NON-REACT HUANG NON-REACT HUANG 07/31/2023 7:35 AM EDT [facility] Comment: HCV antibody was non-reactive. There is no laboratory evidence of HCV infection. In most cases, no further action is required. However, if recent HCV exposure is suspected, a test for HCV RNA (test code 71803) is suggested. For additional information please refer to http://education.Experiment.[employer]/faq/CLD41j4 (This link is being provided for informational/ educational purposes only.) Blood Structure of peripheral vein / Unknown Venipuncture / Unknown 07/30/2023 5:42 PM EDT 07/30/2023 5:58 PM EDT [facility] - 07/31/2023 7:35 AM EDT [facility] Received Date: us Ted Hudson MD LAB BLOOD ORDERABLES Final Result VIKA TAYLOR [address], [place] [address], [place] [phone] [facility] [address], [place] [address], [place] [phone] from Last 3 Months or Most Recently Relevant to Health Maintenance Insurance ERICK OCHOA [id number] Advance Directives Documents on File Type Date Recorded Patient Nail Specialist Expl [facility] Health Care Proxy 12/04/2023 10:46 AM 11-11 Care Teams Electronic Data Interchange Specialist Relationship Specialty Start Date End Date Alethea Marsh [address] [place] [id number] PCP - General 06/30/24
--- OUTSIDE RECORDS SUMMARY | 2025-01-14 14:43 | XMS_ITS | Clinical Summary ---
Author Organization [facility] Address [address] [place] [address] Care Team Providers Care Services Delivery Driver Name Role Phone Alethea Marsh Primary Care Provider Allergies No known active allergies Medications ergocalciferol [...] the affected area as needed for itching. [place] balm topical ointment PRN 3 times a [...] ng multiple sites with positive rheumatoid factor ([facility]/HCC) 07/29/2023 Assessment & Plan (07/14/2024 8:28 [...] methotrexate, sulfasalazine -labs in a month at [facility] -hep B non-immune, hep C neg, quant [...] flu season COVID - 3 doses monovalent Encounters Date Type Department Care Team Description 12/03/2024 Telephone [facility] [address] [place] [address] Telephone Intake, Staff PAC Patient Request Call Back; PAC Appt Request - Established from Last 3 Months Immunizations Immunization Administration Dates Next Due Diphtheria, [...] Info) Description 03/31/2025 2:45 PM EDT Telehealth [facility] [address] [place] [address] [phone] Michelle Manzano MD [address] [place] [address] [phone] Health Maintenance Due Date Last Done Comments [...] Vaccine: Pediatric (0-5 Years) and At-Risk Patients (6-50 Years) Aged Out 02/26/2014 No longer eligible based on patient's age to complete this topic Hepatitis C Screening Completed 07/30/2023 Procedures * Due to [place] state law, this organization might not be sharing negative HIV tests. Procedure Name Priority Date/Time Associated Diagnosis Comments HEPATITIS C ANTIBODY W/REFLEX TO HCV RNA, QUANTITATIVE PCR Routine 07/30/2023 5:42 PM EDT Long-term use of high-risk medication from Last 3 Months or Most Recently Relevant to Health Maintenance Results * Due to [place] state law, this organization might not be sharing negative HIV tests. * Hepatitis C Antibody w/Reflex to HCV RNA, Quantitative PCR (07/30/2023 5:42 PM EDT) Hepatitis C Antibody NON-REACT HUANG NON-REACT HUANG 07/31/2023 7:35 AM EDT [facility] Comment: HCV antibody was non-reactive. There is no laboratory evidence of HCV infection. In most cases, no further action is required. However, if recent HCV exposure is suspected, a test for HCV RNA (test code 32910) is suggested. For additional information please refer to http://education.i4.ms/faq/DKP30i7 (This link is being provided for informational/ educational purposes only.) Blood Structure of peripheral vein / Unknown Venipuncture / Unknown 07/30/2023 5:42 PM EDT 07/30/2023 5:58 PM EDT Narrative [facility] - 07/31/2023 7:35 AM EDT [facility] Received Date: us Ted Hudson MD LAB BLOOD ORDERABLES Final Result VIKA TAYLOR [address] [facility] [address], [place] [address], [place] [phone] [facility] [address] [facility] [address], [place] [address], [place] [phone] from Last 3 Months or Most Recently Relevant to Health Maintenance Insurance [employer] Advance Directives Documents on File Type Date Recorded Patient Marketing Strategist Expl [facility] Care Proxy 12/04/2023 10:46 AM 11-11 Care Teams Services Delivery Driver Relationship Specialty Start Date End Date Alethea Marsh [address] [place] [address] PCP - General 06/30/24
--- OUTSIDE RECORDS SUMMARY | 2025-01-14 14:43 | XMS_ITS | Encounter Summary ---
Author Organization [facility] Address [address] [place] [address] Care Team Providers Care Prefinish Operator Name Role Phone Alethea Marsh Primary Care Provider [phone] Reason for Visit * Reason Onset Date Comments PAC Patient Request Call Back 12/03/2024 PAC Appt Request - Established 12/03/2024 Encounter Details Date Type Department Care Team (Late st Contact Info) Description 12/03/2024 Telephone [facility] [address] [place] [phone] Telephone Intake, Staff PAC Patient Request Call Back; PAC Appt Request - Established Social History Tobacco Use Types Packs/Day Years [...] on file Sexual Orientation Not on file documented as of this encounter Miscellaneous Notes * Telephone Encounter - Jazzy Sargent - 12/03/2024 3:50 PM EST Pts sister calling stating that pt had missed her appt on 11/25/24 due to hospitalization from pneumonia and would like to r/s. She would like to know if it would be possible to do a telehealth appt with provider as she goes through a lot of oxygen on the trip there. Please reach out to advise and r/s. documented in this encounter Plan of Treatment Upcoming Encounters Date Type Department Care Team (Late st Contact Info) Description 03/31/2025 2:45 PM EDT Telehealth [facility] [address] [place] [address] [phone] Michelle Manzano MD [address] [place] [address] Neurology [place], [place] [phone] documented as of this encounter Visit Diagnoses Not on filedocumented in this encounter Care Teams Prefinish Operator Relationship Specialty Start Date End Date Alethea Marsh [address] [place] [address] PCP - General 06/30/24 documented as of this encounter
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
== END 2025-01-14 14:03 | disposition home or self-care (01) ==
PROVIDERS: PCP Nurse Practitioner Family; Visit Provider Hospitalist
DX: Z43.0 Encounter for attention to tracheostomy (principal); J96.11 Chronic respiratory failure with hypoxia; J96.12 Chronic respiratory failure with hypercapnia; J98.4 Other disorders of lung; G70.9 Myoneural disorder, unspecified; M05.79 Rheumatoid arthritis with rheumatoid factor of multiple sites without organ or systems involvement
CPT/HCPCS: 99215; G2211

== ENCOUNTER → 2025-01-14 13:04 | Outpatient (BNVA) | payer OTHER, SELFPAY | PROVIDERS: PCP Nurse Practitioner Family; Visit Provider Hospitalist | DX: J96.12 Chronic respiratory failure with hypercapnia (principal); J98.4 Other disorders of lung; G70.9 Myoneural disorder, unspecified; M05.79 Rheumatoid arthritis with rheumatoid factor of multiple sites without organ or systems involvement; R13.10 Dysphagia, unspecified; Z43.0 Encounter for attention to tracheostomy | CPT/HCPCS: 99212 ==

== ENCOUNTER 2025-02-25 09:18 | Outpatient (AMB) | payer OTHER, SELFPAY ==
[2025-02-25 09:20] VITALS: BP 100/58; PULSE 106; O2SAT 93
--- NOTE | 2025-02-25 09:20 | A.OFFVIS_ITS ---
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
--- OUTSIDE RECORDS SUMMARY | 2025-02-25 09:47 | XMS_ITS | Clinical Summary ---
Author Organization [facility] Address [address] [place] [address] Care Team Providers Care Furnace Converter Name Role Phone Alethea Marsh Primary Care Provider [phone] Allergies No known active allergies Medications ergocalciferol [...] the affected area as needed for itching. Warner balm topical ointment PRN 3 times a dayfor pain Active emollient cream by Topical (top) route. 2 times PRN for dry skin Active LORazepam (ATIVAN) 1 mg tablet Take 1 mg by mouth every 6 hours as needed for anxiety. Active folic acid (FOLVITE) 1 mg tabletIndication s:Rheumatoid arthritis involving multiple sites with positive rheumatoid factor (HCC) Take 1 tablet (1 mg total) by mouth once a day. 90 tablet 3 4 Active Additional Information Patient not taking.Reported on 07/14/2024 methotrexate (TREXALL) 2.5 mg tabletIndication s:Rheumatoid arthritis involving multiple sites with positive rheumatoid factor (HCC) Take 6 tablets (15 mg total) by mouth once a week. 72 tablet 1 4 Active Additional Information Patient not taking.Reported on 07/14/2024 hydroxychloroqui ne (PLAQUENIL) 200 mg tabletIndication s:Rheumatoid arthritis involving multiple sites with positive rheumatoid factor (HCC) TAKE 1 TABLET (200 MG TOTAL) BY MOUTH 2 TIMES A DAY. 60 tablet 2 Active Additional Information Patient not taking.Reported on 07/14/2024 pyridostigmine (MESTINON) 30 mg tablet Take 30 mg by mouth 3 times a day. Active sulfaSALAzine (AZULFIDINE) 500 mg tabletIndication s:Rheumatoid arthritis involving multiple sites with positive rheumatoid factor (HCC) Take 1 tablet (500 mg total) by mouth 2 times a day. Take with food 60 tablet 2 4 Active Additional Information Patient not taking.Reported on 07/14/2024 traMADoL (ULTRAM) 50 mg tablet Take 50 mg by mouth every 8 hours as needed. 4 Active melatonin 3 mg tablet Take 3 mg by mouth nightly as needed. 4 Active enoxaparin (LOVENOX) 40 mg/0.4 mL subcutaneous injection Inject 40 mg under the skin every 24 hours. 4 Active famotidine (PEPCID) 40 mg/5 mL (8 mg/mL) suspension Take 40 mg by mouth once a day. 4 Active ferrous sulfate 300 mg (60 mg iron)/5 mL solution Take 60 mg by mouth once a day. 4 Active Active Problems Problem Noted Date Diagnosed [...] multiple sites with positive rheumatoid factor 07/29/2023 Assessment & Plan (07/14/2024 8:28 AM [...] weekly in first instance ---repeat labs at [facility] in one month ---then up to 25mg [...] methotrexate, sulfasalazine -labs in a month at [facility] -hep B non-immune, hep C neg, quant [...] Type Department Care Team Description 12/03/2024 Telephone [facility] [address] [place] [phone] Telephone Intake, Staff PAC Patient Request Call [...] Info) Description 03/31/2025 2:45 PM EDT Telehealth [facility] [address] [place] [phone] Michelle Manzano MD [address] [place] [address] [place] [address] Health Maintenance Due Date Last Done Comments Cervical Cancer Screening 1993 HIV Screening 1993 HPV and Pap Smear 1993 Pap Smear 1993 COVID-19 Vaccine ( season) 2024 09/15/2021, 03/10/2021, 02/10/2021 Alcohol/Substance Use Screening 11/10/2024 Depression Screening and Follow-Up 11/10/2024 Social Drivers of Health Annual Screening 11/10/2024 Influenza Vaccine (Season Ended) 2025 09/24/2011, 07/12/2010 DTaP,Tdap,and Td Vaccines (7 - Td or [...] Screening Completed 07/30/2023 Procedures * Due to [place] state law, this organization might not be sharing negative HIV tests. Procedure Name Priority Date/Time Associated Diagnosis Comments HEPATITIS C ANTIBODY W/REFLEX TO HCV RNA, QUANTITATIVE PCR Routine 07/30/2023 5:42 PM EDT Long-term use of high-risk medication from Last 3 Months or Most Recently Relevant to Health Maintenance Results * Due to [place] state law, this organization might not be sharing negative HIV tests. * Hepatitis C Antibody w/Reflex to HCV RNA, Quantitative PCR (07/30/2023 5:42 PM EDT) Hepatitis C Antibody NON-REACT HUANG NON-REACT HUANG 07/31/2023 7:35 AM EDT [facility] Comment: HCV antibody was non-reactive. There is no laboratory evidence of HCV infection. In most cases, no further action is required. However, if recent HCV exposure is suspected, a test for HCV RNA (test code 12011) is suggested. For additional information please refer to http://education.[employer]/faq/KPF01o8 (This link is being provided for informational/ educational purposes only.) Blood Structure of peripheral vein / Unknown Venipuncture / Unknown 07/30/2023 5:42 PM EDT 07/30/2023 5:58 PM EDT Narrative [facility] - 07/31/2023 7:35 AM EDT [facility] Received Date: Ted Hudson MD LAB BLOOD ORDERABLES Final Result [facility] [address] [facility] [address], [place] [address], [facility] Group [facility] [address] [facility] [address], [place] [address], [place] [phone] from Last 3 Months or Most Recently Relevant to Health Maintenance Insurance Advance Directives Documents on File Type Date Recorded 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
--- OUTSIDE RECORDS SUMMARY | 2025-02-25 09:47 | XMS_ITS | Referral Summary ---
Author Organization [facility] Address [address] [place] [address] Care Team Providers Care Fraud Prevention Analyst Name Role Phone Alethea Marsh Primary Care Provider [phone] Encounters Date Type Department Care Team Description 12/03/2024 Telephone [facility] [address] [place] [phone] Telephone Intake, Staff PAC Patient Request Call [...] the affected area as needed for itching. Trail balm topical ointment PRN 3 times a [...] mouth once a day. 90 tablet 3 Active Additional Information Patient not taking.Reported on [...] mg under the skin every 24 hours. 06/19/202 4 Active famotidine (PEPCID) 40 mg/5 mL [...] methotrexate, sulfasalazine -labs in a month at [facility] -hep B non-immune, hep C neg, [...] Info) Description 03/31/2025 2:45 PM EDT Telehealth [facility] [address] [place] [phone] Michelle Manzano MD [address] [place] [address] [phone] Procedures * Due to [facility] law, this organization might not be sharing negative HIV tests. Procedure Name Priority Date/Time Associated Diagnosis Comments HEPATITIS C ANTIBODY W/REFLEX TO HCV RNA, QUANTITATIVE PCR Routine 07/30/2023 5:42 PM EDT Long-term use of high-risk medication from Last 3 Months or Most Recently Relevant to Health Maintenance Results * Due to [place] [employer] law, this organization might not be sharing negative HIV tests. * Hepatitis C Antibody w/Reflex to HCV RNA, Quantitative PCR (07/30/2023 5:42 PM EDT) Hepatitis C Antibody NON-REACT HUANG NON-REACT HUANG 07/31/2023 7:35 AM EDT [facility] Comment: HCV antibody was non-reactive. There is no laboratory evidence of HCV infection. In most cases, no further action is required. However, if recent HCV exposure is suspected, a test for HCV RNA (test code 19355) is suggested. For additional information please refer to http://education.[employer]/faq/RXZ16l3 (This link is being provided for informational/ educational purposes only.) Blood Structure of peripheral vein / Unknown Venipuncture / Unknown 07/30/2023 5:42 PM EDT 07/30/2023 5:58 PM EDT [facility] [place] - 07/31/2023 7:35 AM EDT [facility] Received Date: Ted Hudson MD LAB BLOOD ORDERABLES Final Result [facility] [address], [place] [address], [place] [phone] [facility] [address], [place] [address], [place] [phone] from Last 3 Months or Most Recently Relevant to Health Maintenance Insurance ERICK OCHOA [id number] Advance Directives Documents on File Type Date Recorded 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
--- OUTSIDE RECORDS SUMMARY | 2025-02-25 09:47 | XMS_ITS | Data Portability ---
Author Organization [facility] [place] Address [address] [place] [id number] Care Team Providers Care Electron Gun Assembler Name Role Phone HIM CCA OTHER Assessment Encounter Date Assessment Date Assessment LastModified by Organization Details LastModified Time 12/15/2023 12/15/2023 I provided real -time medical direction via phone for this encounter, and was available for additional phone based assistance as needed. I have reviewed and agree with the Assessment and Plan as documented by the Paediatrician. Patient given the opportunity to ask questions. Patient with recent emergency room visit yesterday and was discharged on cefpodoxime mean and Mucinex for presumed upper respiratory tract infection. Calls today with complaints of a headache and chest pain. Upon security auditor arrival, the patient has no specific complaint. Is taking antibiotics and decongestant. EKG was performed which shows no evidence of gross ischemia. Patient is 28 years old without any history of cardiac disease. Patient with stable vitals. Was difficult to obtain a specific complaint however there were no concerning signs and symptoms on exam. Patient lives with family and has access to emergency services. Red flags discussed. We discussed the diagnostic uncertainty of home visits and the risk associated with this. In this case, the patient and I felt this to be an acceptable and reasonable amount of risk given the benefit of avoiding an ED visit. We discussed the need to seek care urgently/emergentl y in the setting of any new or worsening serious symptoms, particularly fever chills lightheadedness altered mental status Not available 12/15/2023 20:03:02 03/09/2024 03/09/2024 I provided real -time medical direction via phone for this encounter and was available for additional phone-based assistance as needed. I have reviewed and agree with the Assessment and Plan as documented by the Paediatrician. Patient given the opportunity to ask questions. Our service contacted for an assessment of: hypoxia As per above, patient with recent ICU stay and now with a trach. Unclear and unknown PMHx as family and patient do not know dx. Calls for hypoxia down to the low 80's requiring O2. Per security auditor on the scene, 91% on RA but has been on O2 off and on over the past 24 hours. VSS. Non-toxic but appears uncomfortable. Impression: Hypoxia with recent ICU stay and now with trach Plan: referred to [facility] ED for further eval. Expect call made. Not available 03/09/2024 11:52:02 01/27/2025 01/27/2025 I have reviewed and agree with the Assessment and Plan as documented by the Paediatrician. I provided real-time medical direction via phone for this encounter, and was available for additional phone based assistance as needed. I would add/emphasize: Patient seen at request of patient's sister given complaints of chest pain and desire to go to the hospital. Recently evaluated in the hospital several days ag ago after G-tube fell out and was complaining of similar symptoms with reported negative evaluation. Patient found to have vital signs at her baseline with mild tachypnea and tachycardia. Per report lung sounds clear and patient well-appearing. ECG demonstrates NSR with no acute ischemic changes. Per report, patient's proxy and patient are reassured by ECG. To follow-up with PCP. Red flags discussed that should prompt ED presentation including worsening O2 saturation, evidence of respiratory distress, ongoing reports of unrelieved pain pallfather Not available 01/27/2025 15:45:18 01/28/2025 01/28/2025 I have reviewed and agree with the Assessment and Plan as documented by the Paediatrician. I provided real-time medical direction via phone for this encounter, and was available for additional phone based assistance as needed. I would add/emphasize: Patient seen for repeat visit given persistent complaints of chest pain. Patient with a history of reported myasthenia with tracheostomy tube and G-tube. Per report the patient has had increasing anxiety recently with tachypnea when she becomes anxious and complaining of chest discomfort. Visit requested for vital sign recheck. ECG yesterday without ischemic changes. Mild tachycardia with improved hypoxemia consistent with prior visit with normotension and otherwise benign clinical appearance per report. Recent significant family stress causing distress to the patient which is noted during visit reproducing symptoms with calming down and reassurance symptoms are improved substantially. Family reassured with exam. Patient has close follow-up with primary providers. Low suspicion for acute cardiac or respiratory pathology. Advised ongoing close outpatient follow-up with red flags discussed for symptoms that should prompt ED evaluation. pallfather Not available 01/29/2025 08:03:38 Plan of Treatment Reminders Order Date Submit Date Provider Last Modified By Organization Details Last Modified Time Details Appointments None recorded. Lab None recorded. Referral None recorded. Procedures None recorded. Surgeries None recorded. Imaging electroca rdiogram 2024 025 pallfather [place] [id number] 15:41:39 Medication Orders None recorded. Patient TargetsNo targets recorded. Patient InstructionsNo instructions recorded. Reason for Referral None Reported. Results Created Date Observation Date Name Description Value Unit Range Abnormal Flag Note LastModifiedBy Organization Detail LastModifiedTime 01/28/2001/27/2025 elect brenton justicegr am No observ ation record ed. acahorpe [place] [id number] 01/27/2025 16:03:56 Result Notes None recorded. Procedures Surgical History None recorded. Imaging Results Imaging Date Name Status LastModified by Organization Details LastModified Time 01/27/2025 electrocardiogram completed [place] [id number] 01/27/2025 16:03:56 Procedure Notes None recorded. Medical Equipment None Reported. Allergies Allergen ID Allergen Name Allergen Category Reaction Reaction Severity Criticality Documentation Date Start Date Code Code System Note Provider Name and Address Organization Details Recorded Time 60233 morphine medicatio n Not available Not available Not available 01/28/2025 7052 RxNorm Not Available [facility] 08:45:27 Medications Name Sig Start Date Stop Date Status Note LastModified by Organization Details LastModified Time sulfasalazine 500 mg tablet active Not Available Not Availabl e Not Available albuterol sulfate 2.5 mg/3 mL (0.083 %) solution for nebulization active Not Available Not Available Not Available trazodone 50 mg tablet active Not Available Not Available Not Available metoprolol succinate ER 50 mg tablet,extended release 24 hr active Not Available Not Availabl e Not Available prednisone 20 mg tablet active Not Available Not Available Not Available Thera-Derm lotion active Not Available Not Available Not Available meloxicam 7.5 mg tablet active Not Available Not Available Not Available magnesium oxide 400 mg (241.3 mg magnesium) tablet active Not Available Not Available Not Available methotrexate sodium 2.5 mg tablet active Not Available Not Available Not Available cephalexin 500 mg capsule active Not Available Not Available N ot Available omeprazole 20 mg capsule,delayed release active Not Available Not Available Not Available folic acid 1 mg tablet active Not Available Not Available Not Available hydroxychloroqui ne 200 mg tablet active Not Available Not Avail able Not Available ibuprofen 600 mg tablet active Not Available Not Available Not Available albuterol sulfate HFA 90 mcg/actuation aerosol inhaler active Not Available Not Availa ble Not Available ferrous sulfate 325 mg (65 mg iron) tablet,delayed release TAKE 1 TABLET BY MOUTH EVERY DAY active Not Available Not Available No t Available fluoxetine 20 mg capsule active Not Available Not Available Not Available hydrocortisone 1 % topical cream with perineal applicator active Not Available Not Available N ot Available budesonide-formo terol HFA 80 mcg-4.5 mcg/actuation aerosol inhaler INHALE 2 PUFFS BY MOUTH TWO TIMES A DAY-RIN SE MOUTH AFTER EVERY USE. active Not Available Not Available No t Available Anti-Itch (hydrocortisone) 1 % topical cream active Not Available Not Available Not Available Antacid Calcium 215 mg (as calcium carbonate 500 mg) chewable tablet active Not Available Not Available Not Available Rinvoq 15 mg tablet,extended release active Not Available Not Available Not Available Vitals Date Recorded Respiratory rate Oxygen saturation Oxygen saturation in Arterial blood by Pulse oximetry Inhaled oxygen flow rate Heart rate Body temperature Systolic blood pressure Diastolic blood pressure Provider Name and Address Organization Details Last Updated DateTime 4 16 /min 96 % 96 % 5 L/min 81 /min 98.2 [degF] 141 mm[Hg] 90 mm[Hg] Not Available [facility] 4 19:06:51 Date Recorded Heart rate Oxygen saturation Oxygen saturation in Arterial blood by Pulse oximetry Respiratory rate Body temperature Systolic blood pressure Diastolic blood pressure Provider Name and Address Organization Details Last Updated DateTime 4 132 /min 91 % 91 % 18 /min 99.2 [degF] 140 mm[Hg] 88 mm[Hg] Not Available [facility] 4 11:46:15 Date Recorded Oxygen saturation Oxygen saturation in Arterial blood by Pulse oximetry Respiratory rate Body temperature Heart rate Systolic blood pressure Diastolic blood pressure Provider Name and Address Organization Details Last Updated DateTime 5 90 % 90 % 28 /min 97.8 [degF] 98 /min 168 mm[Hg] 84 mm[Hg] Not Available [facility] 5 13:13:54 Date Recorded Oxygen saturation Oxygen saturation in Arterial blood by Pulse oximetry Inhaled oxygen flow rate Body height Respiratory rate Body temperature Body weight Heart rate Systolic blood pressure Diastolic blood pressure Provider Name and Address Organization Details Last Updated DateTime 5 94 % 94 % 4 L/min 182.88 cm 24 /min 98.6 [degF] 55154.8 g 101 /min 120 mm[Hg] 82 mm[Hg] Not Available [facility] 5 11:16:42 Social History None recorded. Functional Status None recorded. Mental Status None recorded. Family History Nothing Reported. Medical History No medical history recorded. Gynecological HistoryNo gynecological history recorded. Obstetrics History GPAL:G 0 P 0 0 0 0 Past Encounters Encounter ID Performer Location Encounter Start Date Encounter Closed Date Diagnosis/Indication Diagnosis SNOMED-CT Code Diagnosis ICD10 Code Diagnosis Note [id number] Christel Mike MD [facility] [address] [place] [id number] 12/15/2023 19:06:36 12/16/2023 10:17:58 Headache 90187088 R51.9 [id number] Christel Mike MD [facility] [address] [place] [id number] 03/09/2024 11:46:12 03/09/2024 20:06:26 Hypoxia 003269943 R09.02 [id number] Catrachito Davalos MD [facility] [address] [place] [phone] 01/27/2025 13:00:25 01/27/2025 21:01:42 Chest pain [id number] R07.9 [id number] Catrachito Davalos MD [facility] [address] [place] [id number] 01/28/2025 11:16:40 01/31/2025 13:45:16 Chest pain 57024754 R07.9 Health Concerns Section Related Observation LastModified by Organization Detai ls LastModified Time None Recorded Concern Status LastModified by Organization Details LastModified Time None Recorded Advance Directives Directive None Recorded Payers Encounter Date Sequence Insurance Name Policy Number Policy Mcelroy Covered Member ID Mcelroy Member ID Guarantor Name 12/15/2023 1 [id number] DOS ON OR AFTER 2023 - DUAL ELIGIBLE - JAIL OPTIONS AND ONE CARE (MEDICARE REPLACEMENT/AD VANTAGE - HMO) Sandrita Hollis [id number] Sandrita Hollis 03/09/2024 1 [id number] DOS ON OR AFTER 2023 - DUAL ELIGIBLE - JAIL OPTIONS AND ONE CARE (MEDICARE REPLACEMENT/AD VANTAGE - HMO) Sandrita Hollis [id number] Sandrita Hollis 01/27/2025 1 [id number] DOS ON OR AFTER 2023 - DUAL ELIGIBLE - JAIL OPTIONS AND ONE CARE (MEDICARE REPLACEMENT/AD VANTAGE - HMO) Sandrita Hollis [id number] Sandrita Hollis 01/28/2025 1 [facility] DOS ON OR AFTER 2023 - DUAL ELIGIBLE - JAIL OPTIONS AND ONE CARE (MEDICARE REPLACEMENT/AD VANTAGE - HMO) Sandrita Hollis [id number] Sandrita Hollis Notes Date Note Type Note Provider Name and Address Organization Details Recorded Time 12/15/2023 text/html CRC Nurse Triage Notes (Hemalatha Wong): Chief Complaints: Headache PMH: Hypertension, COPD/Asthma, Other Allergies: No Known Comments: nurse wound used. Sister called to request visit for member. Seen in ED yesterday for HBP. d/c home. Member is having pain under left arm. Denies shortness of breath. BP 129/90. HR 80's 90's 02 sat 99% RA. c/o headache Christel Mike MD [address] [facility],[address], [place], [phone], [facility] 12/15/2023 20:03:11 03/09/2024 text/html HPI: Bria designated contact for member Sandrita called into [facility] stating that Sandrita who does not normally require oxygen is now on it at home as she is having trouble breathing and would like someone to come check on her and the line was transferred to the CRU. Lead Accountant obtained nurse wound ID# [id number]. Bria states that Sandrita went to the ICU two months ago and was intubated and had a tracheotomy and since Friday she has been on oxygen which they feel has made her alert or kept her awake. Mandie states that they are giving her oxygen nasal canula not delivered by trach mask and administering 2-4 liters of oxygen and her 02 sat is 90%. Bria denies that Sandrita has any nasal flaring, fever, chest rising fast nor breathing fast, denies a cough or excessive or changes in her sputum when she is suctioned. Bria wants someone to come check on her and does not want to take her to the hospital. .................... .................... .................... .................... .................... .................... .................... . [facility] Nurse Triage Notes (Yoly Bryan): Comments: pMH reviewed Unable to reach patient today. CRC team attempted multiple times. VM x1. r/s for 03/09 .................... .................... .................... .................... .................... .................... .................... . Paediatrician Note From Jimmy Vasquez: Dispatched to the call address for the female with difficulty breathing. Family advises that Pt was in the ICU for 2 weeks and just came home on the of this month. Pt was initially seen in the ED for abd pain but was found to be hypoxic. Discharge paperwork provided by the family did not offer any diagnosis or treatments and family is unsure of what was given to her. Pt states she feels OK but family advises her SPO2 has been very up and down and she has been sleeping more recently. Language line was used to translate (Prydeinig).Pt was found sitting in bed, CAOx4, airway open and patent, breathing non labored, able to speak in full sentences, -JVD, -HEENT, skin Hot/pink/dry, pupils PERRL, lung sounds with crackles in upper left lobe-all others clear, Pt on humidified air (over trach) with room SPO2 of 91%, HR 132 which family advises is only a little higher than normal. [facility] consulted. It was deemed to be in Pts best interest to have a chest X-ray done and sputum cultures. Pt agreed to be seen in the ED. Pt [facility] via ambulance. ALL times are approx. .................... .................... .................... .................... .................... .................... .................... . Disposition: Fulfilled Chrsitel Mike MD [address] [facility],[address], [place], [phone], [employer] [facility] 03/09/2024 11:52:12 01/27/2025 text/html HPI: Member's sister, Mandie, phoned in requesting for member to be evaluated. Mandie states member complains of chest pain and dyspnea. Member's nurse left this am and told Mandie member is ok. Member's vital vital signs are stable. O2% @ 90%. Member has a trach and her baseline O2 is anything over 88%. Last B.P was 128/87 and HR in the low 100's. Member has history of tachycardia and anxiety. Mandie left member's room during phone call and stated member was seen by her neurologist on 01/20 and he told Mandie that member self induces these symptoms. Mandie states she notices her O2 increases and seems to be asymptomatic when member's mother or she steps out of member's room and once her mother or her go back in to the room member's O2 decreases and she begins to complain of chest pain and shortness of breath. Mandie states are her morning meds were given to her at 8:30am today. does not have any medication for anxiety during the day, takes Trazodone and Melatonin at bedtime. Mandie is requesting an [facility] visit for an EKG and evaluation because is continuously requesting to go to the hospital and Mandie does not believe she needs to be hospitalized. was just hospitalized on 01/19 because her G-tube dislodged, now has a temporary G-tube until she is seen on 02/03. During hospital visit on 01/19 all of 's tests returned WNL. Mandie aware and in agreement. .................... .................... .................... .................... .................... .................... .................... . CRC Nurse Triage Notes (Hemalatha Wong): Chief Complaints: Chest Pain, Breathing Problems PMH: Hypertension, COPD/Asthma PMH Reviewed at 01/27/2025: Allergies Reviewed at 01/27/2025:28 Comments: [facility] reviewed Paediatrician Organization Information for Aryan Brandon - [facility] Business Legal Name: [facility] Address: [address] [place] [address], [place] [address], Supervisor Fleshing: Luis Willis MD RYAN No.: [id number] Paediatrician POC Test Results from Brandon Baeza [facility] EKG (13:11:45) EKG test performed. Attachments uploaded as part of this test result can be found under Documents section. .................... .................... .................... .................... .................... .................... .................... . Paediatrician Note From Brandon Baeza: Patient alert, in bed on trach vent. Caregiver reports patient complains of chest pain this morning. Caregiver reports she is healthcare proxy. Strong communication barrier with patient. Patient pink warm dry secondary exam unremarkable lung sounds clear, on mechanical ventilator. Abdomen soft extremities unremarkable. Caregiver reports patient? s mental state at baseline. ECG to [facility]. [facility] suggest patient should follow up with PCP if needed. .................... .................... .................... .................... .................... .................... .................... . [facility] Consulted: Catrachito Davalos .................... .................... .................... .................... .................... .................... .................... . Disposition: Fulfilled Catrachito Davalos MD [address] [place] [address],[address], [place], [phone], [facility] [employer] 01/27/2025 15:45:28 01/28/2025 text/html CRC Nurse Triage Notes (Hemalatha Wong): Reason For Request: oxygen levels at 93, bp 130/70, chest pain, and anxiety today. Denies: History of Heart Attack, in the setting of active chest pain Active Chest pain, radiates to neck jaw and or arm Diaphoretic/Sweating Describes as ? c rushing? Sudden onset of nausea/Vomiting and shortness of breath. Shortness of Breath Unable to speak in full sentences without distress Chief Complaints: Chest Pain PMH: Hypertension, COPD/Asthma PMH Reviewed at 01/28/2025:45 Allergies Reviewed at 01/28/2025 - 08:45 Comments: Patient seen yesterday by [facility] for chest pain. Patient continuing to experiencing pain. No change in nature of pain since yesterday. No acute changes in . 02 96% RA BP 130/70 and HR 101. No ischemic change seen on EKG. No shortness of breath currently. Skin appears normal color. Denies pain to neck, arm or jaw. Education provided on the response time and the member was advised to monitor reported s/s and seek emergency treatment if needed. .................... .................... .................... .................... .................... .................... .................... . Paediatrician Note From Keven Joseph: [facility] makes pt contact. Pt is found lying semi-fowlers in in a hospital bed in the bedroom of the home where she lives w/ family. Sister is on scene and is her primary care worker, along w/ another female who also provides care for the pt. Pt is on a ventilator via trach at 3-4 lpm O2. She turns her head and makes eye contact w/ [facility]. She is visibly anxious w/ wide eyes and an accelerated breathing rate. No ashen or zuluaga color is noted, no stridor or sonorous respirations are present, and she is not using accessory muscles to breathe. Her chest is rising and falling w/ her respirations. No facial droop or one-sided weakness are observed, and she is not bleeding anywhere. All present are Prydeinig speaking only, however, sister has a family psychologist on the phone to provide translation. Sister provides hx. Sister tells EMS the pt has been on a ventilator for about a year. Pt has myasthenia gravis, and the disease began affecting her respiratory muscles to the point she needed the trach. Family changes the ventilator tubing daily in the morning, and the pt normally becomes mildly anxious when removed from and placed back on the ventilator or when she is suctioned. She began to c/o non-radiating cp yesterday morning after the ventilator change. There have been no recent changes to the vent settings or O2 requirement. Pt was seen by [facility] the previous day and a 12 lead EKG was obtained. Family shows [facility] the printout, and the EKG is unremarkable for ischemic changes. Family also reports she has been tachycardic on and off and her breathing has been up and down in rate, but all other vital signs have been normal. No fevers/chills, n/v/d, bloody stools, or dark, malodorous, or cloudy urine are reported. Family also denies any pressure ulcers or new/worsening abdominal pain or edema. Pt has some mild abdominal pain from her G-tube due to it being the wrong size. She is scheduled to have it replaced next week. Family also reports pt was seen in the ED on 01/19 and had blood work and CXR at that time and all were found to be normal. Pt was also placed on an expectorant by her timber robber to help thin the mucous in her lungs and make it easier to suction. [facility] asks family if pt takes anything for anxiety and it has been suggested by the psychologist she talk to her PCP about being placed on something for the anxiety. [facility] asks family what they are wanting from today's visit, as there has been no change since yesterday, and sister tells [facility] she just wants to make sure and to help pt be reassured she is doing ok. Pt c/o MALIK and some mild hip pain due to positioning and chest pain. She describes it as her heart is racing. Pt denies radiation into the back, neck, shoulder, or arms. Pt also denies feeling as though she is drowning and does not feel sob. She reports only feeling these when she is suctioned. Pt also denies abdominal pain. She is very emotional and her HR and RR increase as [facility] asks questions and examines her. [facility] obtains vital signs and pt is assessed. Lung sounds are very rhonchus throughout. Skin is p/w/d and nothing remarkable is noted to the abdomen or LEs. CMS is intact. Insertion point of G-tube is covered w/ a clean bandage, no drainage or bleeding are noted and surrounding skin is in good condition w/ no redness, swelling, streaking, or warmth. Family actively suctions pt throughout the exam and she tolerates it well. [facility] contacts [facility] and discusses the above. [facility] recommends family attempt to get pt an appt w/ her pcp early next week to discuss the cp and anxiety. [facility] also has [facility] talk to family about any changes in the pt's condition, including cp in the absence of anxiety or if she becomes sicker to them at all, that she be taken to the ED. [facility] contacts key punch operator to convey the instructions from the [facility]. Family tells [facility] she has two appts next week, one for the G-tube replacement and one w/ her PCP. Sister also tells [facility] they have lost a few family members and individuals close to the family in the past month who are all in [place] and it has been very hard on the family. As she is relaying this information, pt becomes very emotional and starts to cry. Family thinks this may be the reason for her increased discomfort. Sister thanks [facility] for coming and [facility] provides pt w/ words of encouragement, which seems to help calm her down. MI is clear. Report completed by LULI Joseph [id number]. .................... .................... .................... .................... .................... .................... .................... . [facility] Consulted: Catrachito Davalos .................... .................... .................... .................... .................... .................... .................... . Disposition: Fulfilled Catrachito Davalos MD [address] [place] [address],[address], [place], [id number], [place] 01/29/2025 08:03:46 OBGyn Episode No OBEpisode recorded.
--- OUTSIDE RECORDS SUMMARY | 2025-02-25 09:47 | XMS_ITS | Clinical Summary ---
Author Organization [facility] Address [address] [place] [address] Phone Care Team Providers Care Staff Research Scientist Name Role Phone Physician, No Pcp Primary Care Provider Unavaila ble Allergies Active Allergy Reactions Criticality Noted Date [...] total) via g-tube at bedtime. 30 each 4 Active clonazePAM (KlonoPIN) 0.5 mg tablet Take 1 tablet (0.5 mg total) by mouth 2 (two) times a day if needed for anxiety for up to 3 days. 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 Treated with IVIG x5 days (last dose 01/02/24). Adrenal insufficiency ([place] [id number]) 09/15/2024 Overview (09/15/2024): Diagnosed during Dec-February hospitalization at [facility] based on low Cortisol (12/25/23). Iron deficiency anemia 09/15/2024 Functional incontinence 09/15/2024 Failure to thrive in adult 09/15/[address] ([facility] V24, [facility] V28) 09/15/2024 Weakness 09/15/2024 Respiratory disorder with ve ntilator dependence ([facility] V24, [facility] V28) 09/15/2024 Immunocompromised state ([facility] V24) 09/15/2024 Atelectasis of both lungs 09/15/2024 On mechanically assisted agusto tilation ([facility] V24, [facility] V28) 09/15/2024 Neuromyopathy syndrome ([facility] V24, [facility] V28 ) 09/15/2024 Quadriplegia and quadriparesis ([facility] V24, [facility] V28) 09/15/2024 Chronic tachycardia 09/15/2024 Hypercapnic respiratory failure ([facility] V24, [facility] V28) 09/10/2024 Jejunostomy tube in situ ([facility] V24, [facility] V 28) 04/02/2024 TOM positive 07/30/2023 Rheumatoid arthritis involvi ng multiple sites with positive rheumatoid factor ([facility] V24, [facility] V28) 07/29/2023 Resolved Problems Problem Noted Date Diagnosed [...] has been referred to neuromuscular clinic in [place], [place]. Encounters Date Type Department Care Team Description 02/03/2025 7:05 AM EDT - 02/03/2025 11:59 PM EDT Hospital Encounter [facility] Interventional Radiology [address] [place] [phone] Myasthenia gravis ([facility] V24, [facility] V28); Quadriplegia and quadriparesis ([facility] V24, [facility] V28) Discharge Disposition: Home or Self Care 01/29/2025 12:03 PM EDT - 01/29/2025 5:37 PM EDT Emergency [facility] Emergency [address] [place] [phone] Ted Dorado MD Anxiety (Primary Dx); Acute dyspnea Discharge Disposition: Home or Self Care 01/25/2025 2:45 PM EDT Office Visit General Surgery - [place] [address] [phone] Tj Nino, Myasthenia gravis ([facility] V24, [facility] V28) (Primary Dx); Quadriplegia and quadriparesis ([facility] V24, [facility] V28) 01/19/2025 2:32 PM EDT - 01/19/2025 8:33 PM EDT Emergency [facility] Emergency [address] [place] [phone] Malfunction of jejunostomy tube ([facility] V24, [facility] V28) (Primary Dx) Discharge Disposition: Home or Self Care from Last 3 Months Medical History Medical History Date Comments Myasthenia gravis ([facility] V24, [facility] V28) Gastrointestinal tube present ([facility] V24, [facility] V28[facility] Tracheostomy dependent ([facility] V24, [facility] V28 ) Social History Tobacco Use Types Packs/Day Years Used Date Smoking Tobacco: Never Smokeless Tobacco: Never Interpersonal Safety Answer Date Record ed Physical Abuse 10/14/2024 Verbal Abuse 10/14/2024 Comments No Sex and Gender Information Value Date Recorded Sex Assigned at Female 10/13/2024 5:36 PM EST Legal Sex Female 4:55 AM EST Gender Identity Female 10/13/2024 5:36 PM EST Sexual Orientation Straight 10/13/2024 5: 36 PM EST Obstetrics History Last Filed Vital Signs Vital Sign Reading Time Taken Comments Blood Pressure 119/92 01/29/2025 12:13 PM EDT Pulse 109 02/03/2025 8:31 AM EDT Temperature 37.7 ??C (99.8 ??F) 01/29/2025 12:13 PM E DT Respiratory Rate 18 02/03/2025 8:31 AM EDT Oxygen Saturation 97% 02/03/2025 8:31 AM EDT Inhaled Oxygen Concentration - - Weight 66.7 kg (147 lb) 01/29/2025 12:13 PM EDT Height 182.9 cm (6') 01/29/2025 12:13 PM EDT Body Mass Index 19.94 01/29/2025 12:13 PM EDT Plan of Treatment Health Maintenance Due Date Last Done Comments Cervical Cancer Screening: Pap Smear 2014 Cholesterol Screening (Lipid Panel) 12/09/2023 Depression Screening 12/09/2023 HIV Screening 12/09/2023 Social Influencers of Health Screening 12/09/2023 COVID-19 Vaccine ( season) 2024 09/15/2021, 03/10/2021, 02/10/2021 Influenza Vaccine (Season Ended) 2025 09/24/2011, 07/12/2010 Hypertension/CHF/CAD Annual BMP Blood Test 01/29/2026 01/29/2025, 01/19/2025, 11/01/2024, Additional history exists DTaP,Tdap,and Td Vaccines (7 [...] age to complete this topic Meningococcal B Vaccine Aged Out No l onger eligible based on patient's age to complete this topic RSV Immunization Patients Under 20 months Aged Out No longer eligible based on patient's age to complete this topic Procedures Procedure Name Priority Date/Time Associated Diagnosis Comments XR REPLACE DUOD/J-TUBE PERC W FLUORO Routine 02/03/2025 8:55 AM EDT Myasthenia gravis (CMS/[facility] V24, [facility] V28) Quadriplegia and quadriparesis (CMS/H[facility] V24, [facility] V28) ECG ANNOTATED 01/31/2025 XR CHEST 1 VIEW STAT 01/29/2025 4:03 PM EDT XR ABDOMEN 1 VIEW STAT 01/29/2025 4:0 3 PM EDT COMPREHENSIVE METABOLIC PANEL STAT 01/29/2025 3:11 PM EDT CBC WITH AUTO DIFFERENTIAL STAT 01/29/2025 3:11 PM EDT CBC AND DIFFERENTIAL STAT 01/29/2025 3:11 PM EDT OXYGEN THERAPY, ADULT Routine 01/29/2025 1:07 PM EDT POTASSIUM STAT 01/19/2025 6:49 PM EDT XR ABDOMEN 1 VIEW STAT 01/19/2025 4:4 1 PM EDT XR CHEST 1 VIEW STAT 01/19/2025 4:06 PM EDT CBC WITH AUTO DIFFERENTIAL STAT 01/19/2025 3:56 PM EDT LIPASE STAT 01/19/2025 3:56 PM EDT COMPREHENSIVE METABOLIC PANEL STAT 01/19/2025 3:56 PM EDT CBC AND DIFFERENTIAL STAT 01/19/2025 3:56 PM EDT RESPIRATORY VIRUS PANEL MOLECULAR STUDY STAT 01/19/2025 3:52 PM EDT OXYGEN THERAPY, ADULT Routine 01/19/2025 3:43 PM EDT from Last 3 Months Results * XR Replace Duod/J-Tube Perc w Fluoro (02/03/2025 8:55 AM EDT) Anatomical Region Laterality Modality Body Interventional R adiology 02/03/2025 10:3 5 AM EDT Narrative 02/03/2025 10:38 AM EDT J tube Exhange Indications: Dysphagia. ??Patient had the tube replaced with a gastric tube in the emergency department approximately 2 weeks ago. Interventionalists: Dr. Eugenio Sandhu CONCLUSION: Successful exchange of 16 Nigerien jejunostomy tube. ?? The tube is available for immediate use. ?? MEDICATIONS: None COMPARISON: None Fluoroscopic time: 3.5 minutes PROCEDURE: Informed written consent obtained from the patient's family japanese interpreter utilized. ??Patient brought to angiography and placed in supine position upon the table. Contrast injection through the port demonstrates opacification of small bowel loops. ?? A 0.035 stiff Glidewire was then advanced through the jejunal port into the jejunum with assistance of a 5-Nigerien catheter. ??The gastro balloon was deflated and the tube removed. A new 16-Nigerien jejunostomy tube was advanced over the wire. ??The balloon was inflated within the bowel with 7 mL sterile water and contrast. ??The bumper was advanced to the skin. ??The wire was removed. ?? Additional administration of contrast through both ports demonstrates appropriate positioning. ??Both ports were then flushed with sterile water. The patient tolerated procedure well. ?? COMPLICATIONS: None. ?? -------- FINAL REPORT -------- Dictated By: Eugenio Sandhu Dictated Date: 02/03/2025 10:35 ET Assigned Physician: Eugenio Sandhu Reviewed and Electronically Signed By: Eugenio Sandhu Signed Date: 02/03/2025 10:38 ET Workstation ID: [id number] Transcribed By: Self Edit Transcribed Date: 02/03/2025 10:35 ET Procedure Note Eugenio Sandhu MD - 02/03/2025 J tube Exhange Indications: Dysphagia. Patient had the tube replaced with a gastric tubein the emergency department approximately 2 weeks ago. Interventionalists: Dr. Eugenio Sandhu CONCLUSION: Successful exchange of 16 Nigerien jejunostomy tube. The tubeis available for immediate use. MEDICATIONS: None COMPARISON: None Fluoroscopic time: 3.5 minutes PROCEDURE: Informed written consent [facility] the [facility] utilized. Patient brought to angiography and placedin supine position upon the table. Contrast injection through the port demonstrates opacification of smallbowel loops. A 0.035 stiff Glidewire was then advanced through the jejunal port intothe jejunum with assistance of a 5-Nigerien catheter. The gastro balloonwas deflated and the tube removed. A new 16-Nigerien jejunostomy tube was advanced over the wire. The balloonwas inflated within the bowel with 7 mL sterile water and contrast. Thebumper was advanced to the skin. The wire was removed. Additional administration of contrast through both ports demonstratesappropriate positioning. Both ports were then flushed with sterilewater. The patient tolerated procedure well. COMPLICATIONS: None. -------- FINAL REPORT -------- Dictated By: Eugenio Sandhu Dictated Date: 02/03/2025 10:35 ET Assigned Physician: Eugenio Sandhu Reviewed and Electronically Signed By: Eugenio Sandhu Signed Date: 02/03/2025 10:38 ET Workstation ID: [id number] Transcribed By: Self Edit Transcribed Date: 02/03/2025 10:35 ET us Tj Nino DO IMG FLUOROSCOPY PROCEDURES Fin al Result * ECG-Annotated (01/31/2025) us Provider Onbase MD ECG ORDERABLES Final Result * XR Chest 1 View (01/29/2025 4:03 PM EDT) Only the most recent of2 resultswithin the time period is included. Anatomical Region Laterality Modality Body Radiographic Liliana ging 01/30/2025 10:0 5 AM EDT Impressions 01/30/2025 10:07 AM EDT Impression: 1. Tracheostomy tube well-positioned. 2. Lungs grossly clear. Telerad PA ([id number]) -------- FINAL REPORT -------- Dictated By: Elissa Reynolds Dictated Date: 01/30/2025 10:05 ET Assigned Physician: Elissa Reynolds Reviewed and Electronically Signed By: Elissa Reynolds Signed Date: 01/30/2025 10:07 ET Workstation ID: [id number] Transcribed By: Self Edit Transcribed Date: 01/30/2025 10:05 ET Narrative 01/30/2025 10:07 AM EDT History: Chest pain. Comparison: 01/19/25, 03/09/24, thoracic CTA 10/14/24 Findings: Semiupright AP portable chest at 3:45 PM. A tracheostomy tube remains well-positioned. The cardiac silhouette is normal in size. The lung volumes remain low. The lungs are grossly clear. No sizable pleural fluid collection is seen. A dextroscoliosis is centered in the lower thoracic spine, unchanged. Bilateral glenohumeral arthritic changes are present. Procedure Note Elissa Reynolds MD - 01/30/2025 History: Chest pain. Comparison: 01/19/25, 03/09/24, thoracic CTA 10/14/24 Findings: Semiupright AP portable chest at 3:45 PM. A tracheostomy tube remainswell- positioned. The cardiac silhouette is normal in size. The lungvolumes remain low. The lungs are grossly clear. No sizable pleural fluidcollection is seen. A dextroscoliosis is centered in the lower thoracic spine, unchanged.Bilateral glenohumeral arthritic changes are present. IMPRESSION: Impression: 1. Tracheostomy tube well-positioned. 2. Lungs grossly clear. Teleharris SUAREZ ([id number]) -------- FINAL REPORT -------- Dictated By: Elissa Reynolds Dictated Date: 01/30/2025 10:05 ET Assigned Physician: Elissa Reynolds Reviewed and Electronically Signed By: Elissa Reynolds Signed Date: 01/30/2025 10:07 ET Workstation ID: [id number] Transcribed By: Self Edit Transcribed Date: 01/30/2025 10:05 ET us Ted Dorado MD IMG XR PROCEDURES Final Res ult * XR Abdomen 1 View (01/29/2025 4:03 PM EDT) Only the most recent of2 resultswithin the time period is included. Anatomical Region Laterality Modality Body Radiographic Liliana ging 01/30/2025 10:0 7 AM EDT Impressions 01/30/2025 10:07 AM EDT Impression: No significant abnormality identified. Telerad ERICK ([id number]) -------- FINAL REPORT -------- Dictated By: Elissa Reynolds Dictated Date: 01/30/2025 10:07 ET Assigned Physician: Elissa Reynolds Reviewed and Electronically Signed By: Elissa Reynolds Signed Date: 01/30/2025 10:07 ET Workstation ID: [id number] Transcribed By: Self Edit Transcribed Date: 01/30/2025 10:07 ET Narrative 01/30/2025 10:07 AM EDT History: Abdominal pain. Comparison: 01/19/25 Findings: Portable AP supine abdomen from 3:55 PM. No bowel dilatation is seen. An enterostomy tube projects over the left midabdomen, unchanged. Surgical chain suture is noted in the left upper quadrant. No apparent solid visceromegaly is seen. The regional skeleton appears intact. Procedure Note Elissa Reynolds MD - 01/30/2025 History: Abdominal pain. Comparison: 01/19/25 Findings: Portable AP supine abdomen from 3:55 PM. No bowel dilatation is seen. Anenterostomy tube projects over the left midabdomen, unchanged. Surgicalchain suture is noted in the left upper quadrant. No apparent solid visceromegaly is seen. The regional skeleton appearsintact. IMPRESSION: Impression: No significant abnormality identified. Telerad ERICK ([id number]) -------- FINAL REPORT -------- Dictated By: Elissa Reynolds Dictated Date: 01/30/2025 10:07 ET Assigned Physician: Elissa Reynolds Reviewed and Electronically Signed By: Elissa Reynolds Signed Date: 01/30/2025 10:07 ET Workstation ID: [id number] Transcribed By: Self Edit Transcribed Date: 01/30/2025 10:07 ET us Ted Dorado MD IMG XR PROCEDURES Final Res ult * (ABNORMAL) CBC auto differential (01/29/2025 3:11 PM EDT) Only the most recent of2 resultswithin the time period is included. WBC 7.8 4.8 - 10.8 K/[facility] LAB HEMETOLOGY METHOD 01/29/2025 3:44 PM EDT [facility] RBC 5.20(H) 3.80 - 4.80 M/mcL LAB HEMETOLOGY METHOD 01/29/2025 3:44 PM EDT [facility] Hemoglobin 11.2(L) 11.5 - 16.0 g/dL LAB HEMETOLOGY METHOD 01/29/2025 3:44 PM EDT [facility] Hematocrit 40.4 35.0 - 47.0 % LAB HEMETOLOGY METHOD 01/29/2025 3:44 PM EDT [facility] MCV 78.3(L) 79.0 - 98.0 FL LAB HEMETOLOGY METHOD 01/29/2025 3:44 PM EDT [facility] MCH 21.7(L) 27.0 - 32.0 pcg LAB HEMETOLOGY METHOD [facility]/29[facility]2025 [facility] MCHC 27.7(L) 32.0 - 37.0 g/dL LAB HEMETOLOGY METHOD 01/29/2025 3:44 PM [facility] RDW 20.4(H) 11.0 - 15.0 % LAB HEMETOLOGY METHOD 01/29/2025 3:44 PM EDT [facility] Platelets 310 130 - 400 K/mcL LAB HEMETOLOGY METHOD 01/29/2025 3:44 PM [facility] MPV 10.1 7.0 - 11.0 FL LAB HEMETOLOGY METHOD 01/29/2025 3:44 PM [facility] NRBC 0.0 <1.0 % LAB HEMETOLOGY METHOD 01/29/2025 3:44 [facility] NRBC Absolute 0.00 <0.10 K/mcL LAB HEMETOLOGY METHOD 01/29/2025 3:44 [facility] Neutrophils Relative 82.1 % LAB HEMETOLOGY METHOD 01/29/2025 3:44 PM [facility] Lymphocytes Relative 14.9 % LAB HEMETOLOGY METHOD 01/29/2025 3:44 [facility] Monocytes Relative 2.6 % LAB HEMETOLOGY METHOD 01/29/2025 3:44 PM EDT [facility] Eosinophils Relative 0.0 % LAB HEMETOLOGY METHOD 01/29/2025 3:44 PM EDT [facility] Basophils Relative 0.1 % LAB HEMETOLOGY METHOD 01/29/2025 3:44 PM EDT [facility] Immature Granulocytes Relative 0.3 % LAB HEMETOLOGY METHOD 01/29/2025 3:44 PM EDT [facility] Neutrophils Absolute 6.38 1.50 - 7.00 K/mcL LAB HEMETOLOGY METHOD 01/29/2025 3:44 PM EDT [facility] Lymphocytes Absolute 1.16 1.00 - 5.00 K/mcL LAB HEMETOLOGY METHOD 01/29/2025 3:44 PM EDT [facility] Monocytes Absolute 0.20 0.20 - 1.00 K/mcL LAB HEMETOLOGY METHOD 01/29/2025 3:44 PM EDT [facility] Eosinophils Absolute 0.00 0.00 - 0.50 K/mcL LAB HEMETOLOGY METHOD 01/29/2025 3:44 PM EDT [facility] Basophils Absolute 0.01 0.00 - 0.20 K/mcL LAB HEMETOLOGY METHOD 01/29/2025 3:44 PM EDT [facility] Immature Granulocytes Absolute 0.02 0.00 - 0.03 K/mcL LAB HEMETOLOGY METHOD 01/29/2025 3:44 PM EDT [facility] Blood Venous blood specimen / Unknown Venipuncture / Unknown 01/29/2025 3:11 PM EDT 01/29/2025 3:27 PM EDT us eTd Dorado MD LAB BLOOD ORDERABLES Final Result [facility] [address] [place] [address], * (ABNORMAL) Comprehensive metabolic panel (01/29/2025 3:11 PM EDT) Only the most recent of2 resultswithin the time period is included. Sodium 137 133 - 145 mmol/L LAB CHEMISTRY METHOD 01/29/2025 3:58 PM [facility] Potassium 4.9 3.5 - 5.5 mmol/L LAB CHEMISTRY METHOD 01/29/2025 3:58 PM [facility] Chloride 99 96 - 110 mmol/L LAB CHEMISTRY METHOD 01/29/2025 3:58 PM [facility] CO2 35(H) 21 - 32 mmol/L LAB CHEMISTRY METHOD 01/29/2025 3:58 PM [facility] Anion Gap 3 3 - 11 LAB CHEMISTRY METHOD 01/29/2025 3:58 PM [facility] Glucose 91 70 - 100 mg/dL LAB CHEMISTRY METHOD 01/29/2025 3:58 PM [facility] BUN 16 5 - 25 mg/dL LAB CHEMISTRY METHOD 01/29/2025 3:58 PM [facility] Creatinine 0.16(L) 0.50 - 1.10 mg/dL LAB CHEMISTRY METHOD 01/29/2025 3:58 PM [facility] eGFR 169 >=60 mL/min/1. 73m2 LAB CHEMISTRY METHOD 01/29/2025 3:58 PM [facility] Comment:Calculation based on the??Chronic Kidney Disease Epidemiology Collaboration (CKD-EPI) equation refit??without adjustment for race. BUN/Creatinine Ratio 100.0 LAB CHEMISTRY METHOD 01/29/2025 3:58 PM [facility] Calcium 8.9 8.5 - 10.5 mg/dL LAB CHEMISTRY METHOD 01/29/2025 3:58 PM [facility] AST (SGOT) 12 10 - 42 unit/L LAB CHEMISTRY METHOD 01/29/2025 3:58 PM EDT [facility] ALT (SGPT) 12 10 - 60 unit/L LAB CHEMISTRY METHOD 01/29/2025 3:58 PM EDT [facility] Alkaline Phosphatase 87 42 - 121 unit/L LAB CHEMISTRY METHOD 01/29/2025 3:58 PM EDT [facility] Total Protein 7.4 6.0 - 8.0 g/dL LAB CHEMISTRY METHOD 01/29/2025 3:58 PM EDT [facility] Albumin 2.8(L) 3.2 - 5.0 g/dL LAB CHEMISTRY METHOD 01/29/2025 3:58 PM EDT [facility] Total Bilirubin 0.3 0.0 - 1.4 mg/dL LAB CHEMISTRY METHOD 01/29/2025 3:58 PM EDT [facility] Blood Venous blood specimen / Unknown Venipuncture / Unknown 01/29/2025 3:11 PM EDT 01/29/2025 3:27 PM EDT us Ted Dorado MD LAB BLOOD ORDERABLES Final Result Performing Organization Address [facility]/ZIP Co de Phone Number [facility] [address] [place] [address], * Potassium (01/19/2025 6:49 PM EDT) Potassium 5.0 3.5 - 5.5 mmol/L LAB CHEMISTRY METHOD 01/19/2025 7:19 PM EDT [facility] Blood Venous blood specimen / Unknown Venipuncture / Unknown 01/19/2025 6:49 PM EDT 01/19/2025 6:52 PM EDT us Tracie SUAREZ LAB BLOOD ORDERABLES Final Resu lt [facility] [address] [place] [address], [place] [phone] * Lipase (01/19/2025 3:56 PM EDT) [facility] Lipase 27 13 - 75 unit/L LAB CHEMISTRY METHOD 01/19/2025 4:26 PM EDT [facility] Blood Venous blood specimen / Unknown Venipuncture / Unknown 01/19/2025 3:56 PM EDT 01/19/2025 4:03 PM EDT Tracie SUAREZ LAB BLOOD ORDERABLES Final Resu lt [facility] [address] [place] [address], [place] [phone] * Respiratory virus panel molecular study (01/19/2025 3:52 PM EDT) [facility] Adenovirus Detection by PCR Not Detected Not Detected LAB MICROBIOLOGY METHOD 01/19/2025 5:02 PM EDT [facility] Influenza A PCR Not Detected Not Detected LAB MICROBIOLOGY METHOD 01/19/2025 5:02 PM EDT [facility] Influenza B PCR Not Detected Not Detected LAB MICROBIOLOGY METHOD 01/19/2025 5:02 PM EDT [facility] Coronavirus 229E Not Detected Not Detected LAB MICROBIOLOGY METHOD 01/19/2025 5:02 PM EDT [facility] Coronavirus HKU1 Not Detected Not Detected LAB MICROBIOLOGY METHOD 01/19/2025 5:02 PM EDT [facility] Coronavirus OC43 Not Detected Not Detected LAB MICROBIOLOGY METHOD 01/19/2025 5:02 PM EDT [facility] Coronavirus NL63 Not Detected Not Detected LAB MICROBIOLOGY METHOD 01/19/2025 5:02 PM EDT [facility] Parainfluenza Virus 1 Not Detected Not Detected LAB MICROBIOLOGY METHOD 01/19/2025 5:02 PM EDT [facility] Parainfluenza Virus 2 Not Detected Not Detected LAB MICROBIOLOGY METHOD 01/19/2025 5:02 PM EDT [facility] Parainfluenza Virus 3 Not Detected Not Detected LAB MICROBIOLOGY METHOD 01/19/2025 5:02 PM EDT [facility] Parainfluenza Virus 4 Not Detected Not Detected LAB MICROBIOLOGY METHOD 01/19/2025 5:02 PM EDT [facility] RSV PCR Not Detected Not Detected LAB MICROBIOLOGY METHOD 01/19/2025 5:02 PM EDT [facility] Human Metapneumovirus A and B Not Detected Not Detected LAB MICROBIOLOGY METHOD 01/19/2025 5:02 PM EDT [facility] Rhinovirus/Entero virus Not Detected Not Detected LAB MICROBIOLOGY METHOD 01/19/2025 5:02 PM EDT [facility] Bordetella pertussis Not Detected Not Detected LAB MICROBIOLOGY METHOD 01/19/2025 5:02 PM EDT [facility] Bordetella parapertussis Not Detected Not Detected LAB MICROBIOLOGY METHOD 01/19/2025 5:02 PM EDT [facility] Mycoplasma pneumo by PCR Not Detected Not Detected LAB MICROBIOLOGY METHOD 01/19/2025 5:02 PM EDT [facility] Chlamydia pneumoniae Not Detected Not Detected LAB MICROBIOLOGY METHOD 01/19/2025 5:02 PM EDT [facility] SARS COV-2 Not Detected Not Detected LAB MICROBIOLOGY METHOD 01/19/2025 5:02 PM EDT [facility] Swab Both anterior nares / Unknown Non-blood Collection / Unknown 01/19/2025 3:52 PM EDT 01/19/2025 4:03 PM EDT [facility] - 01/19/2025 5:02 PM EDT Testing was performed using the [employer] Respiratory Pathogen PCR Assay. All results must [...] that are below the limit of detection. us [facility] MICROBIOLOGY - GENERAL RANJEET BLACK Final Result [facility] ([facility]) [facility] [address] [place] [address], [place] [phone] from Last 3 Months Insurance [facility] MEDICAID ERICK OCHOA [id number] Advance Directives Documents on File Type Date Recorded Patient Shutdown Planner Expl anation Health Care Decision (hx) 12/13/2023 [...] original code status order details. Care Teams Staff Research Scientist Relationship Specialty Start Date End Date Physician, No Pcp PCP - General 01/29/25
--- NOTE | 2025-02-25 15:58 | A.OFFVIS_ITS ---
Vital Signs 02/25/25 09:20 Height 6 ft BMI Reason not done Patient refused/unable BP 100/58 L Blood Pressure Location Rt brachial Position Sitting Pulse 106 H Pulse Source Pulse Oximeter Pulse Oximetry (%) 93 Oxygen Delivery Method Room Air Intake Visit Reasons: Trache Change Allergies morphine Allergy (Intermediate, Verified 02/25/25 09:25) Palpitations and Rash HPI Comments Details: The patient is a zak 29-year-old woman with a history of asthma, myasthenia gravis, rheumatoid arthritis now with tracheostomy for respiratory failure. Most of her records are a [facility] and also at [facility]. She also gets her care from [facility]. Based on the records the patient did have a episode of acute hypercarbic and hypoxic respiratory failure required intubation at [facility]. During that admission the patient did end up getting a tracheostomy placement likely for inability to clear the airway. She was subsequently placed on oxygen she was able to be discharged home. Not sure of the patient went to rehab before going home. Ultimately while in home she developed respiratory failure again and had to go back to the ER which they found that it was due to a faulty tracheostomy that had to be changed. She initially had a Shiley cuffed trach which was then replaced with a 6. Fenestrated CFN tracheostomy. Since the tracheostomy change she has had hard time with her breathing. It has been difficult for her to breathe or even be suctioned. She does have a Passy Bode valve that allows her to speak. She has a very weak cough due to her neuromuscular disease. She does get suctioned although she does not have any type of cough assist device. She has been on immunosuppressant therapy for her autoimmune conditions. She does use her nebulizer twice a day. In her asthma seems to be good control. As far as her nutrition the patient does have a PEG tube. Today we did change her tracheostomy to a 6UN75H tracheostomy which she feels more comfortable with. She is tolerating the Passy Dawn valve very well. She has no longer using a noninvasive ventilator at home. We will assess her blood work including a venous gas to assess her CO2. The patient may benefit from noninvasive ventilation to minimize the hypercarbia and improve gas exchange. 05/06/2024 the patient is here for a pulmonary follow-up visit. Overall the patient is doing fairly well. Her chest congestion is better. She did get approved initially for the cough assist device but then it was taken away because insurance will not cover although she needs it. He will from the [employer] that we use for did not approaches and we did not realize that have been denied. In addition to that I did send a fax with the new tracheostomy that the patient needs in order to change it. However, she continues to receive the old 1. I did reach out to [facility] and did speak to a patient retail wireless sales representative. I did fax over a new script. I am hoping that she can get this tracheostomy soon not do for us to change it in the next 4 weeks. As it is already she is having some irritation to the skin around her trachea. Mainly because of secretions and the rubbing from the tracheostomy. Therefore the tracheostomy should be changed and better trach sponges should be provided to minimize that friction. I provide her with antimicrobial ointment although if not better she may need an antifungal treatment. Asbestos keep the area dry. In the meantime the patient also has significant gingivitis and therefore is at risk for micro aspirations i nto the lung. Will treat her with chlorhexidine mouthwash for a month twice a day in order to improve the issue. She may need to be on prophylactic chlorhexidine moving 4. will follow-up in 4-6 weeks. 07/27/2024 the patient is here for hospital follow-up visit. Recently she developed worsening respiratory symptoms and was admitted to [facility] with pneumonia. She did spend some time in the ICU. Subsequently discharged. She is feeling better. She is using the oxygen continuously. The patient has had issues with chronic hypercarbic respiratory failure. She does have an elevated CO2. Will go ahead and repeat her blood gas during the next visit. She also when she was in a hospital had a tracheostomy changed to a cuffed [employer] tracheostomy. With a bigger tracheostomy in the cough is hard for her to use her Passy Bode valve and therefore she has a hard time eating and speaking. Therefore I did call the [employer] that she is working with and myself in my medical microbiologist talk to multiple people to make sure that she got her supplies because she has not been getting her tracheostomy sent to her home. They did state that they will going to make sure that they will going to send a tracheostomy today and should be available by tomorrow. When she returns to the office will downsize her tracheostomy. Will check a blood gas at that point. If the patient continues have evidence of hypercarbia worsening disease then will start having to discuss further treatments with the noninvasive ventilator to improve her gas exchange. As far as the noninvasive ventilator this can be provided with a portable mouthpiece in order for her to get rescue breaths that sometimes she needs because of the increased work of breathing. Also sometimes that she can use at nighttime only if her tracheostomy can be capped. If however her tracheostomy can not be capped then she would potentially need a ventilator that will supervisor whipped topping to the tracheostomy. This could be done with a uncuffed trach as long as the PEEP is a 0. therefore, will wait for her to come back to downsize her trach and see how she does in order to move forward. If the patient develops any worsening symptoms prior to that she will call the office for further evaluation. She continues with the chest physical therapy. She has a new suction machine. And she is also using the prophylactic chlorhexi dine mouthwash to prevent aspiration pneumonia. 12/03/2024 the patient is here for a pulmonary follow-up visit. Overall she is doing better she did get be admitted to the hospital with acute on chronic hypercarbic respiratory failure and she was placed on nighttime ventilator which she seems to be tolerating well. She gets that through her DME, [employer]. She does have a picture the invasive ventilator which is actually nostril. The patient does have a cough tracheostomy. We did swab it to a new 1, [id number]. I did send a request prescription to her [employer] company for the right size tracheostomy as she is still getting the older 1 that is uncuffed. She also needs inner cannulas and syringes to feel the cough. She does have a suction machine with her. We did swab her tracheostomy at the bedside without any complications she tolerated well and then she required suction afterwards. Will plan to do blood work including a blood gas during the next visit. For now seems like the ventilators working well and she appears to be stable currently. Will follow-up in 6-8 weeks and will change her tracheostomy at that point. If she has any issues prior to that she was coughing earlier assessment. 01/14/2025 the patient is here for a pulmonary follow-up visit. Overall the patient has been doing well. She did have the right tracheostomy sent over by her [employer] company. She has been using her ventilator at nighttime with good effect. Her family has been very capable to take care of her which is reassuring. We were able to change her trach at the bedside. However, is getting a little tight in the stoma likely because of the cough causing irritation of the stoma as is maneuvering the change the tracheostomy. Therefore will continue to try to change it every 4-6 weeks. In the meantime she does complain of a cough. And she also would like to see about taking food by mouth again. Will go ahead and set her up for a modified barium swallow to start assessing her ability to take by mouth. Ideally though she do that safely she would have to tolerate a Passy Bode valve. 02/25/2025 the patient is here for a pulmonary follow-up visit. She has been doing well. She continues on the ventilator at nighttime. She still has a hard time tolerating the PMV during the daytime. She currently has a cough tracheostomy. I did change in at the bedside. She does have an appointment wit h speech pathology coming up in April. Will try to downsize her some in order for him to tolerate the PMV prior to the visit. She is still requiring suction. She is getting supplies from her [employer] company for the ventilator and the tracheostomy. In addition to that she does use oxygen. Usually is on 3 L continuously. At nighttime for some reason she was using a mask like a Ventimask or nasal cannula but she understands up with a cough trach does not going to help. Therefore she is going to start connecting the oxygen directly to the ventilator for better administration. The patient follow-up in 4-6 weeks she will bring the smaller trach with her in order for us to change. 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 Respiratory failure Social History Patient Tobacco Use Status: Never used Tobacco Review of Systems Const Denies fever(s) and Reports weakness Eyes Reports no additional complaints ENT Reports halitosis, Reports dental pain and Reports neck pain Card Denies chest pain and Reports dyspnea Resp Reports cough and Reports dyspnea GI Reports abdominal pain (peg site) Musc Reports deformity, Reports arthralgias, Reports joint swelling, Reports limited range of motion and Reports neck pain Skin/Breast Denies rash Neuro Reports Neuro-related abnormal movements and Reports weakness Physical Exam Vital Signs: Last Vital Signs Pulse 106 H 02/25/25 09:20 BP 100/58 L 02/25/25 09:20 Pulse Ox 93 02/25/25 09:20 Oxygen Delivery Method Room Air 02/25/25 09:20 Const General: alert Nutritional Appearance: underweight HEENT Head: Yes normocephalic Teeth and gingiva: gingiva abnormal hypertrophic, edematous and diffusely erythematous Neck Neck: Yes tracheostomy present (skin ulceration around the tracheostomy) Chest Chest palpation & inspection: normal inspection of the chest Resp Effort & Inspection: Actively coughing (very weak) and decreased respiratory effort Cardio Heart sounds: S1 normal heart sound present and S2 normal heart sound present GI Palpation (GI): Soft to palpation and Tenderness to palpation present (GI) (peg site) Skin General skin exam: no rashes or lesions noted Extrem General: No clubbing and No cyanosis Assessment & Plan Assessment & Plan (1) Tracheostomy dependence: Code(s): Z93.0 - Tracheostomy status Category: Medical (2) Respiratory failure: Code(s): J96.90 - Respiratory failure, unspecified, unspecified whether with hypoxia or hypercapnia Category: Medical Qualifiers: Chronicity: chronic Respiratory failure complication: hypoxia and hypercapnia Qualified Code(s): J96.11 - Chronic respiratory failure with hypoxia; J96.12 - Chronic respiratory failure with hypercapnia (3) Restrictive lung mechanics due to neuromuscular disease: Code(s): J98.4 - Other disorders of lung; G70.9 - Myoneural disorder, unspecified Category: Medical (4) Rheumatoid arthritis: Code(s): M06.9 - Rheumatoid arthritis, unspecified Category: Medical Qualifiers: Rheumatoid arthritis location: multiple sites Rheumatoid factor presence: with rheumatoid factor Qualified Code(s): M05.79 - Rheumatoid arthritis with rheumatoid factor of multiple sites without organ or systems involvement Plan continue oxygen via trach collar Trial PMV during the day Modified Barium swallow small dose of Glycopyrrolate as needed downsizing tracheostomy Lacey#[id number], changed today at the bedside without complications->Requesting [id number] continue ventilator at night repeat bloodgas during the next visit F/U 4-6 weeks Coding Level of Care Code Est Pt Level 5 (57336) Complex EM visit Add On G2211 Diagnoses Tracheostomy dependence Z93.0 Chronic respiratory failure with hypoxia and hypercapnia J96.11; J96.12 Chronicity: chronic Respiratory failure complication: hypoxia and hypercapnia Restrictive lung mechanics due to neuromuscular disease J98.4; G70.9 Rheumatoid arthritis involving multiple sites with positive rheumatoid factor M05.79 Rheumatoid arthritis location: multiple sites Rheumatoid factor presence: with rheumatoid factor Time Spent (min) 40
== END 2025-02-25 09:56 | disposition home or self-care (01) ==
LOC: HO.HPS 09:19
PROVIDERS: PCP Nurse Practitioner Family; Visit Provider Hospitalist
DX: Z93.0 Tracheostomy status (principal); J96.11 Chronic respiratory failure with hypoxia; J96.12 Chronic respiratory failure with hypercapnia; J98.4 Other disorders of lung; G70.9 Myoneural disorder, unspecified; M05.79 Rheumatoid arthritis with rheumatoid factor of multiple sites without organ or systems involvement
CPT/HCPCS: 99215; G2211

== ENCOUNTER → 2025-02-25 09:18 | Outpatient (BNVA) | payer OTHER, SELFPAY | PROVIDERS: PCP Nurse Practitioner Family; Visit Provider Hospitalist | DX: J96.11 Chronic respiratory failure with hypoxia (principal); J96.12 Chronic respiratory failure with hypercapnia; J98.4 Other disorders of lung; G70.9 Myoneural disorder, unspecified; M05.79 Rheumatoid arthritis with rheumatoid factor of multiple sites without organ or systems involvement; Z93.0 Tracheostomy status | CPT/HCPCS: 99212 ==

== ENCOUNTER 2025-04-08 08:53 | Outpatient (AMB) | payer OTHER, SELFPAY ==
[2025-04-08 09:09] VITALS: BP 106/76; PULSE 90; O2SAT 100
--- NOTE | 2025-04-08 09:09 | A.OFFVIS_ITS ---
Vital Signs 04/08/25 09:09 Height 6 ft BMI Reason not done Patient refused/unable BP 106/76 Blood Pressure Location Rt brachial Position Sitting Pulse 90 Pulse Source Pulse Oximeter Pulse Oximetry (%) 100 Oxygen Delivery Method Nasal Cannula Oxygen Flow Rate 3 Intake Visit Reasons: Trache Change Allergies morphine Allergy (Intermediate, Verified 02/25/25 09:25) Palpitations and Rash HPI Comments Details: The patient is a zak 29-year-old woman with a history of asthma, myasthenia gravis, rheumatoid arthritis now with tracheostomy for respiratory failure. Most of her records are a [facility] and also at [facility]. She also gets her care from [facility]. Based on the records the patient did have a episode of acute hypercarbic and hypoxic respiratory failure required intubation at [facility]. During that admission the patient did end up getting a tracheostomy placement likely for inability to clear the airway. She was subsequently placed on oxygen she was able to be discharged home. Not sure of the patient went to rehab before going home. Ultimately while in home she developed respiratory failure again and had to go back to the ER which they found that it was due to a faulty tracheostomy that had to be changed. She initially had a Shiley cuffed trach which was then replaced with a 6. Fenestrated CFN tracheostomy. Since the tracheostomy change she has had hard time with her breathing. It has been difficult for her to breathe or even be suctioned. She does have a Passy Dawn valve that allows her to speak. She has a very weak cough due to her neuromuscular disease. She does get suctioned although she does not have any type of cough assist device. She has been on immunosuppressant therapy for her autoimmune conditions. She does use her nebulizer twice a day. In her asthma seems to be good control. As far as her nutrition the patient does have a PEG tube. Today we did change her tracheostomy to a 6UN75H tracheostomy which she feels more comfortable with. She is tolerating the Passy [place] valve very well. She has no longer using a noninvasive ventilator at home. We will assess her blood work including a venous gas to assess her CO2. The patient may benefit from noninvasive ventilation to minimize the hypercarbia and improve gas exchange. 05/06/2024 the patient is here for a pulmonary follow-up visit. Overall the patient is doing fairly well. Her chest congestion is better. She did get approved initially for the cough assist device but then it was taken away because insurance will not cover although she needs it. He will from the [employer] that we use for did not approaches and we did not realize that have been denied. In addition to that I did send a fax with the new tracheostomy that the patient needs in order to change it. However, she continues to receive the old 1. I did reach out to [facility] and did speak to a patient arborist representative. I did fax over a new script. I am hoping that she can get this tracheostomy soon not do for us to change it in the next 4 weeks. As it is already she is having some irritation to the skin around her trachea. Mainly because of secretions and the rubbing from the tracheostomy. Therefore the tracheostomy should be changed and better trach sponges should be provided to minimize that friction. I provide her with antimicrobial ointment although if not better she may need an antifungal treatment. Asbestos keep the area dry. In the meantime the patient also has significant gingivitis and therefore is at risk for micro aspirations into the lung. Will treat her with chlorhexidine mouthwash for a month twice a day in order to improve the issue. She may need to be on prophylactic ch lorhexidine moving 4. will follow-up in 4-6 weeks. 07/27/2024 the patient is here for hospital follow-up visit. Recently she developed worsening respiratory symptoms and was admitted to [facility] with pneumonia. She did spend some time in the ICU. Subsequently discharged. She is feeling better. She is using the oxygen continuously. The patient has had issues with chronic hypercarbic respiratory failure. She does have an elevated CO2. Will go ahead and repeat her blood gas during the next visit. She also when she was in a hospital had a tracheostomy changed to a cuffed [employer] tracheostomy. With a bigger tracheostomy in the cough is hard for her to use her Passy [place] valve and therefore she has a hard time eating and speaking. Therefore I did call the [employer] that she is working with and myself in my medical information officer talk to multiple people to make sure that she got her supplies because she has not been getting her tracheostomy sent to her home. They did state that they will going to make sure that they will going to send a tracheostomy today and should be available by tomorrow. When she returns to the office will downsize her tracheostomy. Will check a blood gas at that point. If the patient continues have evidence of hypercarbia worsening disease then will start having to discuss further treatments with the noninvasive ventilator to improve her gas exchange. As far as the noninvasive ventilator this can be provided with a portable mouthpiece in order for her to get rescue breaths that sometimes she needs because of the increased work of breathing. Also sometimes that she can use at nighttime only if her tracheostomy can be capped. If however her tracheostomy can not be capped then she would potentially need a ventilator that will supervisor newspaper deliveries to the tracheostomy. This could be done with a uncuffed trach as long as the PEEP is a 0. therefore, will wait for her to come back to downsize her trach and see how she does in order to move forward. If the patient develops any worsening symptoms prior to that she will call the office for further evaluation. She continues with the chest physical therapy. She has a new suction machine. And she is also using the prophylactic chlorhexidine mouthwash to prevent aspiration pneumonia. 12/03/2024 the patient is here for a pulmonary follow-up visit. Overall she is doing better she did get be admitted to the hospital with acute on chronic hypercarbic respiratory failure and she was placed on nighttime ventilator which she seems to be tolerating well. She gets that through her DME, [employer]. She does have a picture the invasive ventilator which is actually nostril. The patient does have a cough tracheostomy. We did swab it to a new 1, 7CN80H. I did send a request prescription to her [employer] company for the right size tracheostomy as she is still getting the older 1 that is uncuffed. She also needs inner cannulas and syringes to feel the cough. She does have a suction machine with her. We did swab her tracheostomy at the bedside without any complications she tolerated well and then she required suction afterwards. Will plan to do blood work including a blood gas during the next visit. For now seems like the ventilators working well and she appears to be stable currently. Will follow-up in 6-8 weeks and will change her tracheostomy at that point. If she has any issues prior to that she was coughing earlier assessment. 01/14/2025 the patient is here for a pulmonary follow-up visit. Overall the patient has been doing well. She did have the right tracheostomy sent over by her [employer] company. She has been using her ventilator at nighttime with good effect. Her family has been very capable to take care of her which is reassuring. We were able to change her trach at the bedside. However, is getting a little tight in the stoma likely because of the cough causing irritation of the stoma as is maneuvering the change the tracheostomy. Therefore will continue to try to change it every 4-6 weeks. In the meantime she does complain of a cough. And she also would like to see about taking food by mouth again. Will go ahead and set her up for a modified barium swallow to start assessing her ability to take by mouth. Ideally though she do that safely she would have to tolerate a Passy [place] valve. 02/25/2025 the patient is here for a pulmonary follow-up visit. She has been doing well. She continues on the ventilator at nighttime. She still has a hard time tolerating the PMV during the daytime. She currently has a cough tracheostomy. I did change in at the bedside. She does have an appointment with speech pathology coming up in April. Will try to downsize her some in order for him to tolerate the PMV prior to the visit. She is still requiring suction. She is getting supplies from her [employer] company for the ventilator and the tracheostomy. In addition to that she does use oxygen. Usually is on 3 L continuously. At nighttime for some reason she was using a mask like a Ventimask or nasal cannula but she understands up with a cough trach does not going to help. Therefore she is going to start connecting the oxygen directly to the ventilator for better administration. The patient follow-up in 4-6 weeks she will bring the smaller trach with her in order for us to change. 04/08/2025 the patient is here for a pulmonary follow-up visit. We have been having some issues with her [employer] company, [employer], they have not been responsive to her equipment. We did call him again and then we did get a contact officer to try to facilitate any conversations and prescriptions to make sure the patient gets what she needs. She is supposed to be downsized as far as her trach in order for her to tolerate the Passy Dawn valve in order for her to have her speech and swallow tests in the coming weeks. Therefore the bedside we did change his tracheostomy to 6CN75H, which she tolerated without difficulties. The patient did put on the Passy Dawn valve and she tolerated it decent. Her cough is stronger which is reassuring. She does have increased secretions as well though I will send her antibiotic start. The patient follow-up in 4-6 weeks to reach change her trach. Hopefully she can pass her swallow eval. 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 Respiratory failure Social History Patient Tobacco Use Status: Never used Tobacco Review of Systems Const Denies chills, Denies fatigue, Denies fever(s), Denies weight gain and Denies weight loss Eyes Reports no additional complaints ENT Denies dizziness Card Denies chest pain, Denies leg edema, Denies lightheadedness, Denies palpitations, Denies dyspnea on exertion, Denies orthopnea and Denies other Resp Denies cough and Denies dyspnea on exertion GI Denies hematochezia and Denies change in stool character Musc Denies abnormal gait, Denies muscle weakness, Denies numbness, Denies radiating pain into limb and Denies tingling Skin/Breast Denies rash Neuro Denies abnormal gait, Denies dizziness, Denies numbness and Denies tingling Endo Denies fatigue and Denies palpitations Physical Exam Vital Signs: Last Vital Signs Pulse 90 04/08/25 09:09 BP 106/76 04/08/25 09:09 Pulse Ox 100 04/08/25 09:09 Oxygen Delivery Method Nasal Cannula 04/08/25 09:09 Oxygen Flow Rate 3 04/08/25 09:09 Const General: alert Nutritional Appearance: underweight HEENT Head: Yes normocephalic Teeth and gingiva: gingiva abnormal hypertrophic, edematous and diffusely erythematous Neck Neck: Yes tracheostomy present (skin ulceration around the tracheostomy) Chest Chest palpation & inspection: normal inspection of the chest Resp Effort & Inspection: Actively coughing (very weak) and decreased respiratory effort Cardio Heart sounds: S1 normal heart sound present and S2 normal heart sound present GI Palpation (GI): Soft to palpation and Tenderness to palpation present (GI) (peg site) Skin General skin exam: no rashes or lesions noted Extrem General: No clubbing and No cyanosis Assessment & Plan Assessment & Plan (1) Tracheostomy dependence: Code(s): Z93.0 - Tracheostomy status Category: Medical (2) Respiratory failure: Code(s): J96.90 - Respiratory failure, unspecified, unspecified whether with hypoxia or hypercapnia Category: Medical Qualifiers: Chronicity: chronic Respiratory failure complication: hypoxia and hypercapnia Qualified Code(s): J96.11 - Chronic respiratory failure with hypoxia; J96.12 - Chronic respiratory failure with hypercapnia (3) Restrictive lung mechanics due to neuromuscular disease: Code(s): J98.4 - Other disorders of lung; G70.9 - Myoneural disorder, unspecified Category: Medical (4) Rheumatoid arthritis: Code(s): M06.9 - Rheumatoid arthritis, unspecified Category: Medical Qualifiers: Rheumatoid arthritis location: multiple sites Rheumatoid factor presence: with rheumatoid factor Qualified Code(s): M05.79 - Rheumatoid arthritis with rheumatoid factor of multiple sites without organ or systems involvement Plan continue oxygen via trach collar Trial PMV during the day Modified Barium swallow small dose of Glycopyrrolate as needed downsizing tracheostomy Shiley#6CN75H, changed today at the bedside without complications->Requesting 6CN75H continue ventilator at night repeat bloodgas during the next visit F/U 4-6 weeks Medications: New doxycycline monohydrate 100 mg PO BID 28 tabs 0RF 14 days Coding Level of Care Code Est Pt Level 5 (63908) Complex EM visit Add On G2211 Diagnoses Tracheostomy dependence Z93.0 Chronic respiratory failure with hypoxia and hypercapnia J96.11; J96.12 Chronicity: chronic Respiratory failure complication: hypoxia and hypercapnia Restrictive lung mechanics due to neuromuscular disease J98.4; G70.9 Rheumatoid arthritis involving multiple sites with positive rheumatoid factor M05.79 Rheumatoid arthritis location: multiple sites Rheumatoid factor presence: with rheumatoid factor Time Spent (min) 45
== END 2025-04-08 09:40 | disposition home or self-care (01) ==
LOC: HO.HPS 08:54
PROVIDERS: PCP Nurse Practitioner Family; Visit Provider Hospitalist
DX: Z93.0 Tracheostomy status (principal); J96.11 Chronic respiratory failure with hypoxia; J96.12 Chronic respiratory failure with hypercapnia; J98.4 Other disorders of lung; G70.9 Myoneural disorder, unspecified; M05.79 Rheumatoid arthritis with rheumatoid factor of multiple sites without organ or systems involvement
CPT/HCPCS: 99215; G2211

== ENCOUNTER → 2025-04-08 08:53 | Outpatient (BNVA) | payer OTHER, SELFPAY | PROVIDERS: PCP Nurse Practitioner Family; Visit Provider Hospitalist | DX: J96.11 Chronic respiratory failure with hypoxia (principal); J96.12 Chronic respiratory failure with hypercapnia; J98.4 Other disorders of lung; M05.79 Rheumatoid arthritis with rheumatoid factor of multiple sites without organ or systems involvement; G70.9 Myoneural disorder, unspecified; Z93.0 Tracheostomy status | CPT/HCPCS: 99212 ==

== ENCOUNTER 2025-05-20 09:00 | Outpatient (REF) | payer OTHER, SELFPAY ==
--- NOTE | ~2025-05-20 | XR_ITS ---
EXAMINATION: XR CHEST 2 VIEWS HISTORY: Z93.0 - Tracheostomy status COMPARISON: There are no prior studies available for comparison. FINDINGS: AP and lateral views of the chest are submitted. A tracheostomy tube is seen in place with is tip 3.5 cm above the bam. There are low lung volumes. There are nissy-rw-jbzovhdv bilateral pleural effusions. There are no focal airspace opacities. There is no pleural effusion, pneumothorax, or pulmonary vascular congestion. The heart is normal in size. There is dextroscoliosis of the spine. XR/XR chest 2V IMPRESSION: Low lung volumes. Small to moderate bilateral pleural effusions. Electronically signed by: Garrett Sue MD 05/20/2025 10:18 AM EDT
== END 2025-05-20 09:01 | disposition home or self-care (01) ==
LOC: HO.XRAY 09:00
PROVIDERS: PCP Nurse Practitioner Family; Visit Provider Hospitalist
DX: J90 Pleural effusion, not elsewhere classified (principal); Z93.0 Tracheostomy status
CPT/HCPCS: 71046; 99212

== ENCOUNTER 2025-05-20 09:00 | Outpatient (AMB) | payer OTHER, SELFPAY ==
[2025-05-20 09:05] VITALS: BP 124/76; PULSE 108; O2SAT 97
--- NOTE | 2025-05-20 09:05 | A.OFFVIS_ITS ---
Vital Signs 05/20/25 09:05 Height 6 ft BMI Reason not done Patient refused/unable BP 124/76 Blood Pressure Location Rt brachial Position Sitting Pulse 108 H Pulse Source Pulse Oximeter Pulse Oximetry (%) 97 Oxygen Delivery Method Nasal Cannula Oxygen Flow Rate 3 Intake Visit Reasons: Trache Change Allergies morphine Allergy (Intermediate, Verified 05/20/25 09:10) Palpitations and Rash HPI Comments Details: The patient is a zak 30-year-old woman with a history of asthma, myasthenia gravis, rheumatoid arthritis now with tracheostomy for respiratory failure. Most of her records are a [facility] and also at [facility]. She also gets her care from [facility]. Based on the records the patient did have a episode of acute hypercarbic and hypoxic respiratory failure required intubation at [facility]. During that admission the patient did end up getting a tracheostomy placement likely for inability to clear the airway. She was subsequently placed on oxygen she was able to be discharged home. Not sure of the patient went to rehab before going home. Ultimately while in home she developed respiratory failure again and had to go back to the ER which they found that it was due to a faulty tracheostomy that had to be changed. She initially had a Shiley cuffed trach which was then replaced with a 6. Fenestrated CFN tracheostomy. Since the tracheostomy change she has had hard time with her breathing. It has been difficult for her to breathe or even be suctioned. She does have a Passy [place] valve that allows her to speak. She has a very weak cough due to her neuromuscular disease. She does get suctioned although she does not have any type of cough assist device. She has been on im munosuppressant therapy for her autoimmune conditions. She does use her nebulizer twice a day. In her asthma seems to be good control. As far as her nutrition the patient does have a PEG tube. Today we did change her tracheostomy to a 6UN75H tracheostomy which she feels more comfortable with. She is tolerating the Passy [place] valve very well. She has no longer using a noninvasive ventilator at home. We will assess her blood work including a venous gas to assess her CO2. The patient may benefit from noninvasive ventilation to minimize the hypercarbia and improve gas exchange. 05/06/2024 the patient is here for a pulmonary follow-up visit. Overall the patient is doing fairly well. Her chest congestion is better. She did get approved initially for the cough assist device but then it was taken away because insurance will not cover although she needs it. He will from the [employer] that we use for did not approaches and we did not realize that have been denied. In addition to that I did send a fax with the new tracheostomy that the patient needs in order to change it. However, she continues to receive the old 1. I did reach out to [facility] and did speak to a patient business center representative. I did fax over a new script. I am hoping that she can get this tracheostomy soon not do for us to change it in the next 4 weeks. As it is already she is having some irritation to the skin around her trachea. Mainly because of secretions and the rubbing from the tracheostomy. Therefore the tracheostomy should be changed and better trach sponges should be provided to minimize that friction. I provide her with antimicrobial ointment although if not better she may need an antifungal treatment. Asbestos keep the area dry. In the meantime the patient also has significant gingivitis and therefore is at risk for micro aspirations into the lung. Will treat her with chlorhexidine mouthwash for a month twice a day in order to improve the issue. She may need to be on prophylactic chlorhexidine moving 4. will follow-up in 4-6 weeks. 07/27/2024 the patient is here for hospital follow-up visit. Recently she developed worsening respiratory symptoms and was admitted to [facility] with pneumonia. She did spend some time in the ICU. Subsequently discharged. She is feeling better. She is using the oxygen continuously. The patient has had issues with chronic hypercarbic respiratory failure. She does have an elevated CO2. Will go ahead and repeat her blood gas during the next visit. She also when she was in a hospital had a tracheostomy changed to a cuffed [employer] tracheostomy. With a bigger tracheostomy in the cough is hard for her to use her Passy [place] valve and therefore she has a hard time eating and speaking. Therefore I did call the [employer] that she is working with and myself in my medical diagnostic radiographer talk to multiple people to make sure that she got her supplies because she has not been getting her tracheostomy sent to her home. They did state that they will going to make sure that they will going to send a tracheostomy today and should be available by tomorrow. When she returns to the office will downsize her tracheostomy. Will check a blood gas at that point. If the patient continues have evidence of hypercarbia worsening disease then will start having to discuss further treatments with the noninvasive ventilator to improve her gas exchange. As far as the noninvasive ventilator this can be provided with a portable mouthpiece in order for her to get rescue breaths that sometimes she needs because of the increased work of breathing. Also sometimes that she can use at nighttime only if her tracheostomy can be capped. If however her tracheostomy can not be capped then she would potentially need a ventilator that will spring production supervisor to the tracheostomy. This could be done with a uncuffed trach as long as the PEEP is a 0. therefore, will wait for her to come back to downsize her trach and see how she does in order to move forward. If the patient develops any worsening symptoms prior to that she will call the office for further evaluation. She continues with the chest physical therapy. She has a new suction machine. And she is also using the prophylactic chlorhexidine mouthwash to prevent aspiration pneumonia. 12/03/2024 the patient is here for a pulmonary follow-up visit. Overall she is doing better she did get be admitted to the hospital with acute on chronic hypercarbic respiratory failure and she was placed on nighttime ventilator which she seems to be tolerating well. She gets that through her DME, [employer]. She does have a picture the invasive ventilator which is actually nostril. The patient does have a cough tracheostomy. We did swab it to a new 1, 7CN80H. I did send a request prescription to her [employer] for the right size tracheostomy as she is still getting the older 1 that is uncuffed. She also needs inner cannulas and syringes to feel the cough. She does have a suction machine with her. We did swab her tracheostomy at the bedside without any complications she tolerated well and then she required suction afterwards. Will plan to do blood work including a blood gas during the next visit. For now seems like the ventilators working well and she appears to be stable currently. Will follow-up in 6-8 weeks and will change her tracheostomy at that point. If she has any issues prior to that she was coughing earlier assessment. 01/14/2025 the patient is here for a pulmonary follow-up visit. Overall the patient has been doing well. She did have the right tracheostomy sent over by her [employer] company. She has been using her ventilator at nighttime with good effect. Her family has been very capable to take care of her which is reassuring. We were able to change her trach at the bedside. However, is getting a little tight in the stoma likely because of the cough causing irritation of the stoma as is maneuvering the change the tracheostomy. Therefore will continue to try to change it every 4-6 weeks. In the meantime she does complain of a cough. And she also would like to see about taking food by mouth again. Will go ahead and set her up for a modified barium swallow to start assessing her ability to take by mouth. Ideally though she do that safely she would have to tolerate a Passy Dawn valve. 02/25/2025 the patient is here for a pulmonary follow-up visit. She has been doing well. She continues on the ventilator at nighttime. She still has a hard time tolerating the PMV during the daytime. She currently has a cough tracheostomy. I did change in at the bedside. She does have an appointment with speech pathology coming up in April. Will try to downsize her some in order for him to tolerate the PMV prior to the visit. She is still requiring suction. She is getting supplies from her [employer] company for the ventilator and the tracheostomy. In addition to that she does use oxygen. Usually is on 3 L continuously. At nighttime for some reason she was using a mask like a Ventimask or nasal cannula but she understands up with a cough trach does not going to help. Therefore she is going to start connecting the oxygen directly to the ventilator for better administration. The patient follow-up in 4-6 weeks she will bring the smaller trach with her in order for us to change. 04/08/2025 the patient is here for a pulmonary follow-up visit. We have been having some issues with her DME company, [email or web address], they have not been responsive to her equipment. We did call him again and then we did get a contact center analyst to try to facilitate any conversations and prescriptions to make sure the patient gets what she needs. She is supposed to be downsized as far as her trach in order for her to tolerate the Passy [place] valve in order for her to have her speech and swallow tests in the coming weeks. Therefore the bedside we did change his tracheostomy to 6CN75H, which she tolerated without difficulties. The patient did put on the Passy [place] valve and she tolerated it decent. Her cough is stronger which is reassuring. She does have increased secretions as well though I will send her antibiotic start. The patient follow-up in 4-6 weeks to reach change her trach. Hopefully she can pass her swallow eval. 05/20/2025 the patient is here for a pulmonary follow-up visit. Overall the patient has been doing okay. Did she did tolerate the downsizing of her trach the last time to the 7.5 mm in her diameter tracheostomy. It is a cuffed trach. She still has a hard time with the Passy [place] valve. She does have the swallow test coming up. Therefore, will go ahead and downsize her further to a 6.5 mm inner diameter tracheostomy, 4CN65H. we did change in at the bedside and she did well. Seem to tolerate the Passy Dawn a bit better. She will going to continue to work on it. In the meantime the patient does have increased secretions yellowish in color. Will go ahead and treat her for tracheitis with doxycycline. That seemed to work well the last time. The patient returns 6 weeks will return and change her tracheostomy. Will send a script out to her [employer] company to get the right trach sent over. 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 Respiratory failure Social History Patient Tobacco Use Status: Never used Tobacco Review of Systems Const Denies chills, Denies fatigue, Denies fever(s), Denies weight gain and Denies weight loss Eyes Reports no additional complaints ENT Denies dizziness Card Denies chest pain, Denies leg edema, Denies lightheadedness, Denies palpitations, Denies dyspnea on exertion, Denies orthopnea and Denies other Resp Denies cough and Denies dyspnea on exertion GI Denies hematochezia and Denies change in stool character Musc Denies abnormal gait, Denies muscle weakness, Denies numbness, Denies radiating pain into limb and Denies tingling Skin/Breast Denies rash Neuro Denies abnormal gait, Denies dizziness, Denies numbness and Denies tingling Endo Denies fatigue and Denies palpitations Physical Exam Vital Signs: Last Vital Signs Pulse 108 H 05/20/25 09:05 BP 124/76 05/20/25 09:05 Pulse Ox 97 05/20/25 09:05 Oxygen Delivery Method Nasal Cannula 05/20/25 09:05 Oxygen Flow Rate 3 05/20/25 09:05 Const General: alert Nutritional Appearance: underweight HEENT Head: Yes normocephalic Teeth and gingiva: gingiva abnormal hypertrophic, edematous and diffusely erythematous Neck Neck: Yes tracheostomy present (skin ulceration around the tracheostomy) Chest Chest palpation & inspection: normal inspection of the chest Resp Effort & Inspection: Actively coughing (very weak) and decreased respiratory effort Cardio Heart sounds: S1 normal heart sound present and S2 normal heart sound present GI Palpation (GI): Soft to palpation and Tenderness to palpation present (GI) (peg site) Skin General skin exam: no rashes or lesions noted Extrem General: No clubbing and No cyanosis Assessment & Plan Assessment & Plan (1) Tracheostomy dependence: Code(s): Z93.0 - Tracheostomy status Category: Medical (2) Respiratory failure: Code(s): J96.90 - Respiratory failure, unspecified, unspecified whether with hypoxia or hypercapnia Category: Medical Qualifiers: Chronicity: chronic Respiratory failure complication: hypoxia and hypercapnia Qualified Code(s): J96.11 - Chronic respiratory failure with hypoxia; J96.12 - Chronic respiratory failure with hypercapnia (3) Restrictive lung mechanics due to neuromuscular disease: Code(s): J98.4 - Other disorders of lung; G70.9 - Myoneural disorder, unspecified Category: Medical (4) Rheumatoid arthritis: Code(s): M06.9 - Rheumatoid arthritis, unspecified Category: Medical Qualifiers: Rheumatoid arthritis location: multiple sites Rheumatoid factor presence: with rheumatoid factor Qualified Code(s): M05.79 - Rheumatoid arthritis with rheumatoid factor of multiple sites without organ or systems involvement Plan continue oxygen via trach collar Trial PMV during the day Modified Barium swallow small dose of Glycopyrrolate as needed downsizing tracheostomy Lacey#6CN75H to 4CN65H, changed today at the bedside without complications->Requesting 4CN65H and inner cannula continue ventilator at night repeat bloodgas during the next visit start Doxycycline for tracheatis F/U 4-6 weeks Orders: Orders XR chest 2V 05/20/25 Z93.0 - Tracheostomy status Liver Panel 05/20/25 J96.11 - Chronic respiratory failure with hypoxia, J96.12 - Chronic respiratory failure with hypercapnia Erythrocyte Sedimentation Rate 05/20/25 J96.11 - Chronic respiratory failure with hypoxia, J96.12 - Chronic respiratory failure with hypercapnia Venous Blood Gas 05/20/25 J96.11 - Chronic respiratory failure with hypoxia, J96.12 - Chronic respiratory failure with hypercapnia Basic Metabolic Panel 05/20/25 J96.11 - Chronic respiratory failure with hypoxia, J96.12 - Chronic respiratory failure with hypercapnia Complete Blood Count Auto Diff 05/20/25 J96.11 - Chronic respiratory failure w ith hypoxia, J96.12 - Chronic respiratory failure with hypercapnia Medications: New doxycycline monohydrate 100 mg PO BID 28 tabs 0RF 14 days Coding Level of Care Code Est Pt Level 5 (13514) Complex EM visit Add On G2211 Diagnoses Tracheostomy dependence Z93.0 Chronic respiratory failure with hypoxia and hypercapnia J96.11; J96.12 Chronicity: chronic Respiratory failure complication: hypoxia and hypercapnia Restrictive lung mechanics due to neuromuscular disease J98.4; G70.9 Rheumatoid arthritis involving multiple sites with positive rheumatoid factor M05.79 Rheumatoid arthritis location: multiple sites Rheumatoid factor presence: with rheumatoid factor Time Spent (min) 45
--- OUTSIDE RECORDS SUMMARY | 2025-05-20 09:13 | XMS_ITS | Clinical Summary ---
Author Organization [facility] Address [address] [place] [address] Phone Care Team Providers Care Ladies' Locker Room Attendant Name Role Phone Physician, No Pcp Primary [...] Date Hypoxia 10/13/2024 Chronic hypoxic respiratory failure ([facility]24, [facility] V28) 10/13/2024 Chronic respiratory failure requiring use of nocturnal mechanical ventilation through tracheostomy ([facility] V24, [facility] V28) 10/13/2024 Myasthenia gravis ([facility] V24, [facility] V28) 04/2024 Overview (09/15/2024): See hospital discharge summary scanned to chart 02/16/24 Acetylcholine receptor antibody positive during extensive hospitalization at [facility] December through February 2024. Treated with IVIG x5 days (last dose 01/02/24). Adrenal insufficiency ([place] [id number]) 09/15/2024 Overview (09/15/2024): Diagnosed during Dec-February hospitalization at [facility] based on low Cortisol (12/25/23). Iron deficiency anemia 09/15/2024 Functional incontinence 09/15/2024 Failure to thrive in adult 09/15/[address] ([facility] V24, [facility] V28) 09/15/2024 Weakness 09/15/2024 Respiratory disorder with ve ntilator dependence ([facility] V24, [facility] V28) 09/15/2024 Immunocompromised state ([facility] V24) 09/15/2024 Atelectasis of both lungs 09/15/2024 On mechanically assisted agusto tilation ([facility] V24, [facility] V28) 09/15/2024 Neuromyopathy syndrome ([facility] V24, [facility] V28 ) 09/15/2024 Quadriplegia and quadriparesis ([facility] V24, [facility] V28) 09/15/2024 Chronic tachycardia 09/15/2024 Hypercapnic respiratory failure ([facility] V24, [facility] V28) 09/10/2024 Jejunostomy tube in situ ([facility] V24, [facility] V 28) 04/02/2024 TOM positive 07/30/2023 Rheumatoid arthritis involvi ng multiple sites with positive rheumatoid factor ([facility] V24, [facility] V28) 07/29/2023 Resolved Problems Problem Noted Date [...] has been referred to neuromuscular clinic in [place], [place]. Encounters Date Type Department Care Team Description 05/19/2025 7:17 AM EDT - 05/19/2025 11:59 PM EDT Hospital Encounter [facility] Interventional Radiology [address] [place] [address] Quadriplegia and quadriparesis ([facility] V24, [facility] V28); Myasthenia gravis ([facility] V24, [facility] V28) Discharge Disposition: Home or Self Care 05/03/2025 Telephone General Surgery - [place] [address] [facility] [address] [place] [address] Tj Nino, DO Forms/questionnaires from Last 3 Months Medical History Medical History Date Comments Myasthenia gravis ([facility] V24, [facility] V28) Gastrointestinal tube present ([facility] V24, [facility] V28) Tracheostomy dependent ([facility] V24, [facility] V28 ) Social History Tobacco Use Types [...] Sign Reading Time Taken Comments Blood Pressure 102/65 05/19/2025 11:30 AM EDT Pulse 116 05/19/2025 11:30 AM EDT Temperature 37.1 C (98.7 F) 05/19/2025 8:19 AM EDT Respiratory Rate 17 05/19/2025 11:30 AM EDT Oxygen Saturation 98% 05/19/2025 11:30 AM EDT Inhaled Oxygen Concentration - - Weight 87.1 kg (192 lb) 05/19/2025 8:19 AM EDT Height 182.9 cm (6') 05/19/2025 8:19 AM EDT Body Mass Index 26.04 05/19/2025 8:19 AM EDT Plan of Treatment Health Maintenance Due Date Last Done Comments Cervical Cancer Screening: Pap Smear 2014 Cholesterol Screening (Lipid Panel) 12/09/2023 Depression Screening 12/09/2023 HIV Screening 12/09/2023 Medicare Annual Wellness Visit 12/09/2023 Social Influencers of Health Screening 12/09/2023 COVID-19 Vaccine ( season) 2024 09/15/2021, 03/10/2021, 02/10/2021 Influenza Vaccine (#1) 2025 09/24/2011, 2009 Hypertension/CHF/CAD Annual BMP Blood Test 01/29/2026 01/29/2025, [...] 5 Years) and At-Risk Patients (6 to 49 Years) Aged Out 02/26/2014 No longer eligible [...] Procedure Name Priority Date/Time Associated Diagnosis Comments IR REPLACE DUOD/J-TUBE PERC W FLUORO Routine 05/19/2025 10:01 AM EDT Quadriplegia and quadriparesis (CMS/HCC V24, CMS/HCC V28) Myasthenia gravis (CMS/HCC V24, CMS/HCC V28) COMPREHENSIVE METABOLIC PANEL STAT 01/29/2025 3:11 PM EDT from Last 3 Months or Most Recently Relevant to Health Maintenance Results * IR Replace Duod/J-Tube Perc w Fluoro (05/19/2025 10:01 AM EDT) Anatomical Region Laterality Modality N/A Interventional R adiology 05/19/2025 10:4 4 AM EDT Impressions 05/19/2025 10:47 AM EDT 16-Jamaican jejunostomy tube exchange. The catheter is available for use. -------- FINAL REPORT -------- Dictated By: Eugenio Sandhu Dictated Date: 05/19/2025 10:44 ET Assigned Physician: Eugenio Sandhu Reviewed and Electronically Signed By: Eugenio Sandhu Signed Date: 05/19/2025 10:47 ET Workstation ID: [id number] Transcribed By: Self Edit Transcribed Date: 05/19/2025 10:44 ET Narrative 05/19/2025 10:47 AM EDT Jejunostomy tube exchange INDICATION: Routine exchange desired for malnutrition. Due to anxiety, the patient undergoes the procedure with moderate sedation. The Moderate sedation: Under direct physician supervision, the patient was moderately sedated with 75 mcg FENTANYL and 2.0 mg VERSED IV for a total of 20 minutes. An independent interventional radiology nurse observer trained in conscious sedation provided continuous physiologic monitoring of the patient during the entirety of the procedure through recovery. Procedure: Informed consent was obtained with a patternmaker metal bench via the healthcare proxy. Patient was placed supine on the imaging table. The left midabdomen and catheter were prepped and draped in the usual sterile fashion. Injection of contrast through the pre-existing 16-Jamaican jejunostomy tube demonstrates appropriate opacification of left mid abdominal bowel loops. The balloon was deflated. 8.035 wire was advanced through the tubing into the bowel. Utilizing pimple technique the pre-existing jejunostomy tube was removed. A new cut to length jejunostomy tube was then advanced over the wire and positioned in the same location. The balloon was inflated with 10 mL of water with a scant amount of contrast. Additional administration of contrast entrance appropriate positioning. There were no immediate complications. The patient tolerated the procedure well. Procedure Note Eugenio Sandhu MD - 05/19/2025 Jejunostomy tube exchange INDICATION: Routine exchange desired for malnutrition. Due to anxiety, the patient undergoes the procedure with moderatesedation. The Moderate sedation: Under direct physician supervision, the patient wasmoderately sedated with 75 mcg FENTANYL and 2.0 mg VERSED IV for a totalof 20 minutes. An independent interventional radiology nurse observertrained in conscious sedation provided continuous physiologic monitoringof the patient during the entirety of the procedure through recovery. Procedure: Informed consent was obtained with a patternmaker metal bench viathe healthcare proxy. Patient was placed supine on the imaging table. The left midabdomen andcatheter were prepped and draped in the usual sterile fashion. Injectionof contrast through the pre-existing 16-Jamaican jejunostomy tubedemonstrates appropriate opacification of left mid abdominal bowel loops.The balloon was deflated. 8.035 wire was advanced through the tubing intothe bowel. Utilizing pimple technique the pre-existing jejunostomy tubewas removed. A new cut to length jejunostomy tube was then advanced overthe wire and positioned in the same location. The balloon was inflatedwith 10 mL of water with a scant amount of contrast. Additionaladministration of contrast entrance appropriate positioning. There were no immediate complications. The patient tolerated theprocedure well. IMPRESSION: 16-Jamaican jejunostomy tube exchange. The catheter is available for use. -------- FINAL REPORT -------- Dictated By: Eugenio Sandhu Dictated Date: 05/19/2025 10:44 ET Assigned Physician: Eugenio Sandhu Reviewed and Electronically Signed By: Eugenio Sandhu Signed Date: 05/19/2025 10:47 ET Workstation ID: [id number] Transcribed By: Self Edit Transcribed Date: 05/19/2025 10:44 ET Tj Nino DO IMG IR PROCEDURES Final Result * (ABNORMAL) Comprehensive metabolic panel (01/29/2025 3:11 PM EDT) Sodium 137 133 - 145 mmol/L LAB CHEMISTRY METHOD 01/29/2025 3:58 PM [facility] Potassium 4.9 3.5 - 5.5 mmol/L LAB CHEMISTRY METHOD 01/29/2025 3:58 PM [facility] Chloride 99 96 - 110 mmol/L LAB CHEMISTRY METHOD 01/29/2025 3:58 PM [facility] CO2 35(H) 21 - 32 mmol/L LAB CHEMISTRY METHOD 01/29/2025 3:58 PM [facility] Anion Gap 3 3 - 11 LAB CHEMISTRY METHOD 01/29/2025 3:58 PM [facility] Glucose 91 70 - 100 mg/dL LAB CHEMISTRY METHOD 01/29/2025 3:58 PM [facility] BUN 16 5 - 25 mg/dL LAB CHEMISTRY METHOD 01/29/2025 3:58 PM [facility] Creatinine 0.16(L) 0.50 - 1.10 mg/dL LAB CHEMISTRY METHOD 01/29/2025 3:58 PM [facility] eGFR 169 >=60 mL/min/1. 73m2 LAB CHEMISTRY METHOD 01/29/2025 3:58 PM [facility] Comment:Calculation based on the Chronic Kidney Disease Epidemiology Collaboration (CKD-EPI) equation refit without adjustment for race. BUN/Creatinine Ratio 100.0 LAB CHEMISTRY METHOD 01/29/2025 3:58 PM EDT [facility] Calcium 8.9 8.5 - 10.5 mg/dL LAB CHEMISTRY METHOD 01/29/2025 3:58 PM [facility] AST (SGOT) 12 10 - 42 unit/L LAB CHEMISTRY METHOD 01/29/2025 3:58 PM T [facility] ALT (SGPT) 12 10 - 60 unit/L LAB CHEMISTRY METHOD 01/29/2025 3:58 PM [facility] Alkaline Phosphatase 87 42 - 121 unit/L LAB CHEMISTRY METHOD 01/29/2025 3:58 PM EDT [facility] Total Protein 7.4 6.0 - 8.0 g/dL LAB CHEMISTRY METHOD 01/29/2025 3:58 PM EDT [facility] Albumin 2.8(L) 3.2 - 5.0 g/dL LAB CHEMISTRY METHOD 01/29/2025 3:58 PM T [facility] Total Bilirubin 0.3 0.0 - 1.4 mg/dL LAB CHEMISTRY METHOD 01/29/2025 3:58 PM EDT [facility] Blood Venous blood specimen / Unknown Venipuncture / Unknown 01/29/2025 3:11 PM EDT 01/29/2025 3:27 PM EDT us Ted Dorado MD LAB BLOOD ORDERABLES Final Result [facility] [address] [place] [address], from Last 3 Months or Most Recently Relevant to Health Maintenance Insurance [facility] MEDICARE Member Subscriber Plan / Payer (Ef fective 2014-Present) Name:MARGARITA HILL Relation to Subscriber:Self Name:Margarita Hollis Payer ID:[id number] Group ID:[id number] Type:Not on file Address: [facility] [address] [id number] Advance Directives Documents on File Type Date Recorded Patient Physician Coder Expl anation Health Care Decision (hx) 12/13/2023 [...] original code status order details. Care Teams Ladies' Locker Room Attendant Relationship Specialty Start Date End Date Physician, No Pcp PCP - General 01/29/25
--- OUTSIDE RECORDS SUMMARY | 2025-05-20 09:13 | XMS_ITS | Clinical Summary ---
Author Organization [facility] Address [address] [place] [address] Care Team Providers Care American Sign Language Teacher Name Role Phone Alethea Marsh Primary Care Provider [phone] Allergies Active Allergy Reactions Criticality Noted Date Comments Hydroxychloroquine Unknown 09/09/2024 Contraindicated in myasthenia Morphine Rash 09/09/2024 Medications ergocalciferol (DRISDOL) 200 mcg/mL (8,000 unit/mL) [...] the affected area as needed for itching. Hazen balm topical ointment PRN 3 times a [...] a day. 90 tablet 3 4 Active methotrexate (TREXALL) 2.5 mg tabletIndication s:Rheumatoid arthritis involving multiple sites with positive rheumatoid factor (HCC) Take 6 tablets (15 mg total) by mouth once a week. 72 tablet 1 4 Active Additional Information Patient not taking.Reported on 03/31/2025 hydroxychloroqui ne (PLAQUENIL) 200 mg tabletIndication s:Rheumatoid arthritis involving multiple sites with positive rheumatoid factor (HCC) TAKE 1 TABLET (200 MG TOTAL) BY MOUTH 2 TIMES A DAY. 60 tablet 2 4 Active Additional Information Patient not taking.Reported on 03/31/2025 pyridostigmine (MESTINON) 30 mg tablet Take 30 mg by mouth 3 times a day. Active sulfaSALAzine (AZULFIDINE) 500 mg tabletIndication s:Rheumatoid arthritis involving multiple sites with positive rheumatoid factor (HCC) Take 1 tablet (500 mg total) by mouth 2 times a day. Take with food 60 tablet 2 4 Active Additional Information Patient not taking.Reported on 03/31/2025 traMADoL (ULTRAM) 50 mg tablet Take 50 [...] by mouth once a day. 4 Active busPIRone (BUSPAR) 10 mg tablet 5 Active Antacid Calcium 215 mg calcium (500 mg) tablet,chewable 4 Active hydrocortisone (CORTEF) 10 mg tablet 5 Active Active Problems Problem Noted Date Diagnosed Date Myasthenia gravis 04/28/2024 Assessment & Plan (07/13/2024 3:16 PM EDT): This is a new diagnosis based upon the hospital admission Dec-Feb 2024 -follow up neuro Assessment & Plan (04/28/2024 11:42 AM EDT): This is a new diagnosis based upon the hospital admission Dec-Feb 2024 -follow up neuro TOM positive 07/30/2023 [...] methotrexate, sulfasalazine -labs in a month at [facility] -hep B non-immune, hep C [...] 110 12/03/2023 11:26 AM EST Temperature 36.8 C (98.3 F) 12/03/2023 11:26 AM EST Respiratory Rate 18 08/21/2023 3:00 PM EDT Oxygen Saturation - - Inhaled Oxygen Concentration - - Weight 85.3 kg (188 lb) 03/31/2025 2:45 PM EDT Height 182.9 cm (6') 03/31/2025 2:45 PM EDT Body Mass Index 25.5 03/31/2025 2:45 PM EDT Plan of Treatment Health Maintenance Due Date Last Done Comments Cervical Cancer Screening 1993 HIV Screening 1993 HPV and Pap Smear 1993 Pap Smear 1993 COVID-19 Vaccine ( season) 2024 09/15/2021, 03/10/2021, 02/10/2021 Alcohol/Substance Use Screening 11/10/2024 Depression Screening and Follow-Up 11/10/2024 Social Drivers of Health Annual Screening 11/10/2024 Influenza Vaccine (#1) 2025 09/24/2011, 2009 DTaP,Tdap,and Td Vaccines (7 - Td or [...] Screening Completed 07/30/2023 Procedures * Due to [place] Mo-DV law, this organization might not be sharing negative HIV tests. Procedure Name Priority Date/Time Associated Diagnosis Comments HEPATITIS C ANTIBODY W/REFLEX TO HCV RNA, QUANTITATIVE PCR Routine 07/30/2023 5:42 PM EDT Long-term use of high-risk medication from Last 3 Months or Most Recently Relevant to Health Maintenance Results * Due to [place] Mo-DV law, this organization might not be sharing negative HIV tests. * Hepatitis C Antibody w/Reflex to HCV RNA, Quantitative PCR (07/30/2023 5:42 PM EDT) Hepatitis C Antibody NON-REACT HUANG NON-REACT HUANG 07/31/2023 7:35 AM EDT [facility] Comment: HCV antibody was non-reactive. There is no laboratory evidence of HCV infection. In most cases, no further action is required. However, if recent HCV exposure is suspected, a test for HCV RNA (test code 78085) is suggested. For additional information please refer to [email or web address]/faq/JUB78y6 (This link is being provided for informational/ educational purposes only.) Blood Structure of peripheral vein / Unknown Venipuncture / Unknown 07/30/2023 5:42 PM EDT 07/30/2023 5:58 PM EDT Narrative [facility] - 07/31/2023 7:35 AM EDT [facility] Received Date: us Ted Hudson MD LAB BLOOD ORDERABLES Final Result [facility] [address], [place] [address], [facility] [address] [facility] 3rd Floor, [place] [address], [place] [phone] from Last 3 Months or Most Recently Relevant to Health Maintenance Insurance [employer] Advance Directives Documents on File Type Date Recorded Patient Geodetic Engineer Expl anation Health Care Proxy 12/04/2023 10:46 AM 11-11 Care Teams American Sign Language Teacher Relationship Specialty Start Date End Date Alethea Marsh [address] [place] [id number] PCP - General 06/30/24
--- OUTSIDE RECORDS SUMMARY | 2025-05-20 09:14 | XMS_ITS | Data Portability ---
Author Organization [employer] [facility], [facility] Address [address] [place] [address] Care Team Providers Care Machine Clothing Worker Name Role Phone HIM CCA OTHER Assessment Encounter Date Assessment Date Assessment LastModified by Organization Details LastModified Time 12/15/2023 12/15/2023 I provided real -time medical direction via phone for this encounter, and was available for additional phone based assistance as needed. I have reviewed and agree with the Assessment and Plan as documented by the Parks Recreation Director. Patient given the opportunity to ask questions. Patient with recent emergency room visit yesterday and was discharged on cefpodoxime mean and Mucinex for presumed upper respiratory tract infection. Calls today with complaints of a headache and chest pain. Upon refractory furnace designer arrival, the patient has no specific complaint. [...] Assessment and Plan as documented by the Parks Recreation Director. Patient given the opportunity to ask questions. Our service contacted for an assessment of: hypoxia As per above, patient with recent ICU stay and now with a trach. Unclear and unknown PMHx as family and patient do not know dx. Calls for hypoxia down to the low 80's requiring O2. Per refractory furnace designer on the scene, 91% on RA but has been on O2 off and on over the past 24 hours. VSS. Non-toxic but appears uncomfortable. Impression: Hypoxia with recent ICU stay and now with trach Plan: referred to [facility] ED for further eval. Expect call made. Not available 03/09/2024 11:52:02 01/27/2025 01/27/2025 I have reviewed and agree with the Assessment and Plan as documented by the Parks Recreation Director. I provided real-time medical direction via phone [...] Assessment and Plan as documented by the Parks Recreation Director. I provided real-time medical direction via phone [...] ED evaluation. pallfather Not available 01/29/2025 08:03:38 05/06/2025 05/06/2025 service called for chest pain found 30 jona with hx mysthenia gravis paraplegia Morbid Obesity BIGG MDD s/p tracheostomy reportedly hx cardiac arrest family reporting pt c/o intermittent sharp chest pain denies fever/chills, new cough no change in sputum, feeding, UOP, BM, behavior or mental state VS af 119/76 109 (c/w bsl tachycardia) 94%3L (at bsl) feeding tube site intact diffuse abd tenderness EKG (with chest sx): sinus, no ischemic ST/T changes #Atypical chest pain advised family monitor sx, continue routine care notify service if new fever/chills/cough /sputum change, change UOP/BM otherwise return to ptimary team [email or web address] Not available 05/06/2025 18:47:16 Plan of Treatment Reminders Order Date Submit Date Provider Last Modified By Organization Details Last Modified Time Details Appointments None recorded. Lab None recorded. Referral None recorded. Procedures None recorded. Surgeries None recorded. Imaging electroca rdiogram [address], [address] 21:01:01 electroca rdiogram [address], [address] 15:41:39 Medication Orders None recorded. Patient TargetsNo targets recorded. Patient InstructionsNo instructions recorded. Reason for Referral None Reported. Results Created Date Observation Date Name Description Value Unit Range Abnormal Flag Note LastModifiedBy Organization Detail LastModifiedTime 01/28/2001/27/2025 kenji rendongr am No observ ation record ed. [email or web address] [address], [phone] 01/27/2025 16:03:56 05/06/2005/0605/06/2025 elect brenton flynn am No observ ation record ed. [email or web address] [address], [place], [address] 05/06/2025 21:37:49 Result Notes None recorded. Medical Equipment None Reported. Allergies Allergen ID Allergen Name Allergen Category Reaction Reaction Severity Criticality Documentation Date Start Date Code Code System Note Provider Name and Address Organization Details Recorded Time 49752 morphine medicatio n Not available Not available [...] flow rate Heart rate Body temperature Systolic And Diastolic Provider Name and Address Organization Details Last Updated DateTime 4 16 /min 96 % 96 % 5 L/min 81 /min 98.2 [degF] 141/90 mm[Hg] Not Available [email or web address] 4 19:06:51 Date Recorded Oxygen saturation Oxygen saturation in Arterial blood by Pulse oximetry Respiratory rate Body temperature Heart rate Systolic And Diastolic Provider Name and Address Organization Details Last Updated DateTime 5 90 % 90 % 28 /min 97.8 [degF] 98 /min 168/84 mm[Hg] Not Available [employer] 5 13:13:54 Date Recorded Oxygen saturation Oxygen saturation in Arterial blood by Pulse oximetry Inhaled oxygen flow rate Body height Respiratory rate Body temperature Body weight Heart rate Systolic And Diastolic Provider Name and Address Organization Details Last Updated DateTime 5 94 % 94 % 4 L/min 182.88 cm 24 /min 98.6 [degF] 05547.8 g 101 /min 120/82 mm[Hg] Not Available [employer] 5 11:16:42 Date Recorded Heart rate Oxygen saturation Oxygen saturation in Arterial blood by Pulse oximetry Respiratory rate Body temperature Systolic And Diastolic Provider Name and Address Organization Details Last Updated DateTime 4 132 /min 91 % 91 % 18 /min 99.2 [degF] 140/88 mm[Hg] Not Available [employer] 4 11:46:15 Date Recorded Body temperature Respiratory rate Heart rate Oxygen saturation Oxygen saturation in Arterial blood by Pulse oximetry Inhaled oxygen flow rate Body weight Systolic And Diastolic Provider Name and Address Organization Details Last Updated DateTime 5 98 [degF] 18 /min 109 /min 94 % 94 % 3 L/min 70861.6 4 g 119/76 mm[Hg] Not Available [employer] 18:33:18 Social History None recorded. Functional Status None recorded. Mental Status None recorded. Family History Nothing Reported. Medical History No medical history recorded. Gynecological HistoryNo gynecological history recorded. Obstetrics History GPAL:G 0 P 0 0 0 0 Past Encounters Encounter ID Performer Location Encounter Start Date Encounter Closed Date Diagnosis/Indication Diagnosis SNOMED-CT Code Diagnosis ICD10 Code Diagnosis Note Christel Mike MD [facility] [address] [place] [id number] 12/15/2023 19:06:36 12/16/2023 10:17:58 Headache 18636446 R51.9 [id number] Christel Mike MD [facility] [address] [place] [id number] 03/09/2024 11:46:12 03/09/2024 20:06:26 Hypoxia 684787666 R09.02 [id number] Catrachito Davalos MD [facility] [address] [place] [id number] 01/27/2025 13:00:25 01/27/2025 21:01:42 Chest pain 62125165 R07.9 [id number] Catrachito Davalos MD [facility] [address] [place] [id number] 01/28/2025 11:16:40 01/31/2025 13:45:16 Chest pain [id number] R07.9 [id number] Bola Dudley MD [facility] [address] [phone] 05/06/2025 18:33:10 05/07/2025 21:15:37 Chest pain 14077443 R07.9 Health Concerns Section Related Observation LastModified by Organization Detai ls LastModified Time None Recorded Concern Status LastModified by Organization Details LastModified Time None Recorded Advance Directives Directive None Recorded Payers Insurance Date Sequence Insurance Name Policy Number Policy Mcelroy Covered Member ID Mcelroy Member ID Guarantor Name 05/06/2025 1 [facility] - DOS ON OR AFTER 2023 - DUAL ELIGIBLE - PENITENTIARY OPTIONS AND ONE CARE (MEDICARE REPLACEMENT/AD VANTAGE - HMO) Sandrita Hollis [id number] Sandrita Hollis Notes Date Note Type Note Provider Name and Address Organization Details Recorded Time 12/15/2023 text/html [facility] Nurse Triage Notes (Hemalatha Wong): Chief Complaints: Headache PMH: Hypertension, COPD/Asthma, Other Allergies: No Known Comments: nurse esthetician used. Sister called to request visit for member. Seen in ED yesterday for HBP. d/c home. Member is having pain under left arm. Denies shortness of breath. BP 129/90. HR 80's 90's 02 sat 99% RA. c/o headache Christel Mike MD [address] [place] [address],[address], [place], [phone], [place] 12/15/2023 20:03:11 03/09/2024 text/html HPI: Bria designated contact for member Sandrita called into [place] stating that Sandrita who does not normally require oxygen is now on it at home as she is having trouble breathing and would like someone to come check on her and the line was transferred to the CRU. 2Nd Grade Teacher obtained nurse esthetician ID# [id number]. Bria states that Sandrita went to the [...] .................... .................... .................... .................... .................... .................... . Parks Recreation Director Note From Jimmy Vasquez: Dispatched to the [...] recently. Language line was used to translate (Nigerien).Pt was found sitting in bed, CAOx4, airway open and patent, breathing non labored, able to speak in full sentences, -JVD, -HEENT, skin Hot/pink/dry, pupils PERRL, lung sounds with crackles in upper left lobe-all others clear, Pt on humidified air (over trach) with room SPO2 of 91%, HR 132 which family advises is only a little higher than normal. [facility] consulted. It was deemed to be in Pts best interest to have a chest X-ray done and sputum cultures. Pt agreed to be seen in the ED. Pt transported to via ambulance. ALL times are approx. .................... .................... .................... .................... .................... .................... .................... . Disposition: Rosalba Christel Mike MD [address] [facility],[address], [place], [address], [employer] 03/09/2024 11:52:12 01/27/2025 text/html HPI: Member's sister, Mandie, phoned in requesting for to be evaluated. Mandie states member complains of chest pain and dyspnea. Member's nurse left this am and told Mandie pham is ok. Member's vital vital signs are [...] Melatonin at bedtime. [facility] because [...] .................... .................... .................... .................... .................... .................... . [facility] Nurse Triage Notes (Hemalatha Wong): Chief Complaints: Chest Pain, Breathing Problems PMH: Hypertension, COPD/Asthma PMH Reviewed at 01/27/2025 Allergies Reviewed at 01/27/2025 Comments: [facility] reviewed Parks Recreation Director Organization Information for Brandon Baeza [employer] Legal Name: [facility] Address: [address] [place] [address], Grinding Room Supervisor: Luis Willis MD RYAN No.: [id number] Parks Recreation Director POC Test Results from Brandon Baeza EKG (13:11:45) EKG test performed. Attachments uploaded as part of this test result can be found under Documents section. .................... .................... .................... .................... .................... .................... .................... . Parks Recreation Director Note From Brandon Baeza: Patient alert, in bed on trach vent. Caregiver reports patient complains of chest pain this morning. Caregiver reports she is healthcare proxy. Strong communication barrier with patient. Patient pink warm dry secondary exam unremarkable lung sounds clear, on mechanical ventilator. Abdomen soft extremities unremarkable. Caregiver reports patient s mental state at baseline. ECG to [facility]. [facility] suggest patient should follow up with PCP if needed. .................... .................... .................... .................... .................... .................... .................... . [facility] Consulted: Catrachito Davalos .................... .................... .................... .................... .................... .................... .................... . Disposition: Fulfilled Catrachito Davalos MD [address] [place] [address],[address], [place], [phone], [facility] [employer] 01/27/2025 15:45:28 01/28/2025 text/html [facility] Nurse Triage Notes (Hemalatha Wong): Reason For Request: oxygen levels at 93, bp 130/70, chest pain, and anxiety today. Denies: History of Heart Attack, in the setting of active chest pain Active Chest pain, radiates to neck jaw and or arm Diaphoretic/Sweating Describes as crushing Sudden onset of nausea/Vomiting and shortness of breath. Shortness of Breath Unable to speak in full sentences without distress Chief Complaints: Chest Pain PMH: Hypertension, COPD/Asthma PMH Reviewed at 01/28/2025 - 08:45 Allergies Reviewed at 01/28/2025 - 08:45 Comments: Patient seen yesterday by [facility] for chest pain. Patient continuing to experiencing [...] .................... .................... .................... .................... .................... .................... . Parks Recreation Director Note From Keven Joseph: [facility] makes pt contact. Pt is found lying semi-fowlers in in a hospital bed in the bedroom of the home where she lives w/ family. Sister is on scene and is her primary ambulatory care nurse, along w/ another female who also provides care for the pt. Pt is on a ventilator via trach at 3-4 lpm O2. She turns her head and makes eye contact w/ MI. She is visibly anxious w/ wide eyes and an accelerated breathing rate. No ashen or zuluaga color is noted, no stridor or sonorous respirations are present, and she is not using accessory muscles to breathe. Her chest is rising and falling w/ her respirations. No facial droop or one-sided weakness are observed, and she is not bleeding anywhere. All present are Nigerien speaking only, however, sister has a family [...] or O2 requirement. Pt was seen by [facility] the previous day and a 12 lead EKG was obtained. Family shows [facility] the printout, and the EKG is unremarkable [...] also placed on an expectorant by her lithographing machine operator to help thin the mucous in her lungs and make it easier to suction. [facility] asks family if pt takes anything for anxiety and it has been suggested by the psychologist she talk to her PCP about being placed on something for the anxiety. [facility] asks family what they are wanting from today's visit, as there has been no change since yesterday, and sister tells [facility] she just wants to make sure and to help pt be reassured she is doing ok. Pt c/o COOLEY and some mild hip pain due to [...] and her HR and RR increase as [facility] asks questions and examines her. [facility] obtains vital signs and pt is assessed. [...] the exam and she tolerates it well. [facility] contacts [facility] and discusses the above. [facility] recommends family attempt to get pt an appt w/ her pcp early next week to discuss the cp and anxiety. [facility] also has [facility] talk to family about any changes in the pt's condition, including cp in the absence of anxiety or if she becomes sicker to them at all, that she be taken to the ED. [facility] contacts tie bucker to convey the instructions from the [facility]. Family tells [facility] she has two appts next week, one for the G-tube replacement and one w/ her PCP. Sister also tells [facility] they have lost a few family members and individuals close to the family in the past month who are all in [place] and it has been very hard on the family. As she is relaying this information, pt becomes very emotional and starts to cry. Family thinks this may be the reason for her increased discomfort. Sister thanks [facility] for coming and [facility] provides pt w/ words of encouragement, which seems to help calm her down. [facility] is clear. Report completed by LULI Joseph [id number]. .................... .................... .................... .................... .................... .................... .................... . [facility] Consulted: Catrachito Davalos .................... .................... .................... .................... .................... .................... .................... . Disposition: Fulfilled Catrachito Davalos MD [address], [place], [address], [place] [employer] 01/29/2025 08:03:46 05/06/2025 text/html HPI: Member's designated contact called [facility], stating member is complaining of not feeling well. 120/76, 100 94%, Member states she is having sticking pain in my chest . Caregiver reports member pain comes and goes. She reports member is breathing normally and unlabored, vss. Member has continuous o2 on. Denies fever, chills, weakness or any other sx's. Caregiver reports, member has attention seeking tendencies, but she wants to make sure, there is no need to go to ED. Caregiver states member does not appear to be in any acute distress. PMH includes but not limited to Paraplegia, R/A, Morbid Obesity, Tachycardia, GERD, Hypertension, BIGG, MDD, tracheostomy, HX cardiac arrest. This freelance writer advised caller, a request will be sent to [facility]. If member's sx's worsen or change, call 911. Caller verbalized comprehension and agreed with this plan. .................... .................... .................... .................... .................... .................... .................... . [facility] Nurse Triage Notes (Trina Chou): Reason For Request: chest pain Chief Complaints: Chest Pain PMH: Hypertension, COPD/Asthma PMH Reviewed at 05/06/2025 - 15:29 Allergies Reviewed at 05/06/2025 - 15:29 Comments: HPI reviewed Parks Recreation Director Organization Information for Clarissa Zavala Business Legal Name: [employer] Address: [address] [place] [id number], Grinding Room Supervisor: Artis YIP No.: [id number] Parks Recreation Director POC Test Results from Clarissa Zavala EKG (18:31:48) EKG test performed. Attachments uploaded as part of this test result can be found under Documents section. .................... .................... .................... .................... .................... .................... .................... . Parks Recreation Director Note From Clarissa Zavala: Sent to a call for a pt complaining of chest pain. SC8 arrives on scene, pt is alert and oriented, airway is patent. Pt has history of Myasthenia Gravis, has a tracheostomy, and uses supplemental O2 at 3 lpm and G-tube. Family states they were told when pt has body pain, it will often be accompanied by chest pain. Family is advised as long as pt's SpO2 doesn't drop below 88% or pulse go above 160 or below 60, there is nothing to worry about. Family states they don't want pt to be transported to ED, they just want pt checked out. Family states pt has anxiety, but it's difficult to know if they should be concerned about the chest pain. Allergies verified: Morphine; Family states pt has been suctioned normally with no changes in sputum. Pt complains of intermittent left side chest pain and epigastric pain starting at approx 1:15pm. Pt/family denies cooley, dizziness, sob, n/v/d, fever, or loc. BP:119/76, P:109, RR:18, SpO2:94% RA, T:98.0; Head: unremarkable; Lung sounds: clear bilaterally; Chest: no tenderness; Abdomen: soft, diffuse tenderness, no distention (family unsure if tenderness is normal), feeding tube site appears normal, no blood/pus noted; Back: unremarkable; Upper extremities: bilateral tenderness; Lower extremities: unremarkable; Skin: pink, warm, dry; 12 lead ECG: sinus tachycardia; [facility] consulted and further questions asked. Family states no change in urine output, appearance, or smell; BM, or changes at feeding tube site. Family states in the past when pt has pain like today site of feeding tube has been affected. Family advised to monitor pt and [facility]. Red flags discussed. Pt/family has no further questions. .................... .................... .................... .................... .................... .................... .................... . [facility] Consulted: Bola Dudley .................... .................... .................... .................... .................... .................... .................... . Disposition: Fulfilled Bola Dudley MD [address] [facility],[address], [place], [address], [facility] [employer] 05/06/2025 20:58:21 OBGyn Episode No OBEpisode recorded.
== END 2025-05-20 09:45 | disposition home or self-care (01) ==
LOC: HO.HPS 09:01
PROVIDERS: PCP Nurse Practitioner Family; Visit Provider Hospitalist
DX: Z93.0 Tracheostomy status (principal); J96.11 Chronic respiratory failure with hypoxia; J96.12 Chronic respiratory failure with hypercapnia; J98.4 Other disorders of lung; G70.9 Myoneural disorder, unspecified; M05.79 Rheumatoid arthritis with rheumatoid factor of multiple sites without organ or systems involvement
CPT/HCPCS: 99215; G2211

== ENCOUNTER → 2025-05-20 09:51 | Outpatient (BNV) | payer OTHER, SELFPAY | PROVIDERS: PCP Nurse Practitioner Family; Visit Provider Radiology Diagnostic Radiology | DX: R91.8 Other nonspecific abnormal finding of lung field (principal); J90 Pleural effusion, not elsewhere classified | CPT/HCPCS: 71046 ==

== ENCOUNTER 2025-07-04 13:58 | Outpatient (REF) | payer OTHER, SELFPAY ==
--- OUTSIDE RECORDS SUMMARY | 2025-06-20 19:07 | XMS_ITS | Encounter Summary ---
Author Organization [facility] Address [address] [place] [address] Care Team Providers Care Director Learning And Development Name Role Phone Alethea Marsh NP Primary Care Provider + [phone] Reason for Referral * Home Health (Routine) - Closed Specialty Diagnoses / Procedures Referred By Ike carias Referred To Contact Home Health Services Diagnoses Hypoxia Acute respiratory failure with hypoxia ([facility], [facility]) Chronic hypoxic respiratory failure ([facility], [facility] V[facility]) Anxiety Chronic respiratory failure requiring use of nocturnal mechanical ventilation through tracheostomy ([facility], [facility]) Quadriplegia and quadriparesis ([facility], [facility] V[facility]) On mechanically assisted ventilation ([facility], [facility] V28) Immunocompromised state ([facility] Weakness Respiratory disorder with ventilator dependence ([facility], [facility]) Tracheostomy in place ([facility], [facility] V[facility]) Functional incontinence Adrenal insufficiency ([facility]) Jejunostomy tube in situ ([facility], [facility] V[facility]) Myasthenia gravis ([facility], [facility] V[facility]) Rheumatoid arthritis involving multiple sites with positive rheumatoid factor ([facility], [facility] V28) Failure to thrive in adult Neuromyopathy syndrome ([facility], [facility] V[facility]) Araseli Morton MD [address] [place] [address] Phone: tel: fax: [employer] [facility] [address] [facility], [address] [place] [address] Phone: tel: fax: Referral ID Status Reason Start Date Expiration Date V isits Requested Visits Authorized [id number] Closed Consult and Treat 07/01/2025 07/01/2026 1 1 Scheduling Instructions Continue with previous respiratory ventilatory settings and tracheostomy care/j- tube feedings(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 Skin remains intact. Reason for Visit * Reason Comments Shortness of Breath Dizziness * Auth/Cert (Routine) Specialty Diagnoses / Procedures Referred By Contac t Referred To Contact Diagnoses Hypoxia Acute respiratory failure with hypoxia ([facility] V24, [facility] V28) Acute on chronic respiratory failure ([facility] V24, [facility] V28) Pneumonia due to infectious organism, unspecified laterality, unspecified part of lung Procedures . Araseli Morton MD [address] [place] [address] Phone: tel: fax: [facility] ICU [address] [place] [address] Phone: tel: Referral ID Status Reason Start Date Expiration Date Visits Re quested Visits Authorized [id number] 1 1 Encounter Details Date Type Department Care Team (Latest Contact Info) Description 06/20/2025 7:07 PM EDT - 07/01/2025 6:30 PM EDT Hospital Encounter [facility] ICU [address] [place] [id number] Ronnie Sierra MD [address] [facility] [address] [place], [place] [address] Sandra Bragg MD [address] [facility] [address] [place] [address] Araseli Morton MD [address] [place] [address] Jada Grissom MD [address] [place] [address] Parveen Warner DO [address] [place] [address] Acute respiratory failure with hypoxia ([facility], [facility]) (Primary Dx); Hypoxia; Pneumonia due to infectious organism, unspecified laterality, unspecified part of lung; Chronic hypoxic respiratory failure ([facility] V24, [facility] V28); Anxiety; Chronic respiratory failure requiring use of nocturnal mechanical ventilation through tracheostomy ([facility], [facility] V[facility]); Quadriplegia and quadriparesis ([facility], [facility] V28); On mechanically assisted ventilation ([facility] V24[facility] V28); Immunocompromised state ([facility]); Weakness; Respiratory disorder with ventilator dependence ([facility] V24, [facility]); Tracheostomy in place ([facility] V24, [facility] V28); Functional incontinence; Adrenal insufficiency ([facility]); Jejunostomy tube in situ ([facility] V24, [facility]28); Myasthenia gravis ([facility], [facility] V28); Rheumatoid arthritis involving multiple sites with positive rheumatoid factor ([facility] V24, [facility] V28); Failure to thrive in adult; Neuromyopathy syndrome ([facility] V24, [facility] V28) Discharge Disposition: Home or Self Care Social History Tobacco Use Types Packs/Day Years Used Date Smoking Tobacco: Former Cigarettes Q uit: 2014 Smokeless Tobacco: Never Tobacco Cessation:Counseling Given: Not Answered Alcohol Use Standard Drinks/Week Comments Never 0 (1 standard drink = 0.6 oz pur e alcohol) Housing Instability Answer Date Recorde d Are you worried that in the next 2 months you may not have stable housing? Yes 06/21/2025 Health Literacy Answer Date Recorded How often do you need to hav e someone help you when you read instructions, pamphlets, or other written material from your doctor or pharmacy? Never 06/21/2025 Caregiver: How often do you need to have someone help you when you read instructions, pamphlets, or other written material from your doctor or pharmacy? Not on file 06/21/2025 Financial Risk Answer Date Recorded How hard is it for you to pa y for the very basics like food, housing, medical care, and air conditioning / heating? Patient declined 06/21/2025 Transportation Answer Date Recorded Has the lack of transportati on kept you from meetings, work, or from getting things needed for daily living? No Has the lack of transportati on kept you from medical appointments or from getting medications? No 06/21/2025 Social Isolation Answer Date Recorded How often do you feel lonely or isolated from those around you? Sometimes 06/21/2025 Food Risk Answer Date Recorded Within the past 12 months we worried whether our food would run out before we got money to buy more. Unable to respond 025 Within the past 12 months th e food we bought just didn't last and we didn't have money to get more. Unable to respond 06/10 Dependent Care Answer Date Recorded Do you need help finding or paying for care for your loved ones. For example, childcare center administrator or elderly care for an older adult? No 06/21/2025 Education Answer Date Recorded Do you think completing more education or training, like finishing a GED, going to college, or learning a trade, would be helpful for you? No 06/21/2025 Employment and Income Answer Date Recor ded During the last four weeks, have you been actively looking for work? No 06/21/2025 Living Situation Answer Date Recorded What is your living situation? 0 06/21/2025 Interpersonal Safety Answer Date Record ed Physical Abuse 06/21/2025 Verbal Abuse 06/21/2025 Comments No Sex and Gender Information Value Date Recorded Sex Assigned at Female 10/13/2024 5:36 PM EST Legal Sex Female 4:55 AM EST Gender Identity Female 10/13/2024 5:36 PM EST Sexual Orientation Straight 10/13/2024 5: 36 PM EST documented as of this encounter Last Filed Vital Signs Vital Sign Reading Time Taken Comments Blood Pressure 107/62 07/01/2025 1:00 PM EDT Pulse 99 07/01/2025 1:00 PM EDT Temperature 37.1 C (98.8 F) 07/01/2025 4:00 AM EDT Respiratory Rate 21 07/01/2025 1:00 PM EDT Oxygen Saturation 96% 07/01/2025 1:00 PM EDT Inhaled Oxygen Concentration - - Weight 77.4 kg (170 lb 10.2 oz) 06/21/2025 7:28 AM EDT Height 165.1 cm (5' 5 ) 06/22/2025 8:02 AM EDT Body Mass Index 28.4 06/21/2025 7:28 AM EDT documented in this encounter Functional Status * Are you deaf or do you have serious difficulty hearing? Answer Date of Assessment Author No 06/20/2025 7:45 PM EDT Bette Miramontes RN * Are you blind or do you have serious difficulty seeing, even when wearing glasses? Answer Date of Assessment Author No 06/20/2025 7:45 PM EDT Bette Miramontes RN * Do you have serious difficulty walking or climbing stairs? Answer Date of Assessment Author Yes 06/20/2025 7:45 PM EDT Bette Miramontes RN * Do you have serious difficulty dressing or bathing? Answer Date of Assessment Author Yes 06/20/2025 7:45 PM EDT Bette Miramontes RN * Because of a physical, mental, or emotional condition, do you have serious difficulty doing errandsalone such as visiting the doctor? Answer Date of Assessment Author Yes 06/20/2025 7:45 PM EDT Bette Miramontes RN documented as of this encounter Mental Status * Because of a physical, mental, or emotional condition, do you have serious difficulty concentrating, remembering, or making decisions? (5 years old or older) Answer Entry Date Author Yes 06/20/2025 7:45 PM EDT Bette Miramontes RN documented in this encounter Medications at Time of Discharge busPIRone (BUSPAR) 10 mg tablet Take 1 tablet (10 mg total) by mouth 3 (three) times a day. 90 each 07/01/2025 6 metoprolol tartrate (LOPRESSOR) 25 mg tablet Take 0.5 tablets (12.5 mg total) by mouth every 8 (eight) hours. 45 each 06/30/2025 6 acetaminophen (TYLENOL) 500 mg tablet Take 2 tablets (1,000 mg total) by mouth every 8 (eight) hours if needed for moderate pain. albuterol 2.5 mg /3 mL (0.083 %) nebulizer solution Take 3 mL (2.5 mg total) by nebulization every 2 (two) hours if needed for wheezing. ammonium lactate (LAC-HYDRIN) 12 % lotion Apply topically 1 (one) time each day. 400 g 06/17/2025 calcium carbonate-vitami n D 500 mg-5 mcg (200 unit) per tablet Take 2 tablets by mouth 2 (two) times a day. 120 each 06/16/2025 6 docusate (COLACE) 50 mg/5 mL liquid Take 20 mL (200 mg total) by mouth 1 (one) time each day. enoxaparin (LOVENOX) 40 mg/0.4 mL syringe Inject 0.4 mL (40 mg total) under the skin 1 (one) time each day. famotidine (PEPCID) 8 mg/mL suspension Take 2.5 mL (20 mg total) by mouth 2 (two) times a day. ferrous sulfate 300 mg (60 mg elemental iron)/5 mL liquid Take 5 mL (300 mg total) by mouth 2 (two) times a day. 300 mL 06/16/2025 folic acid (FOLVITE) 1 mg tablet Take 1 tablet (1 mg total) by mouth 1 (one) time each day. guaiFENesin (ROBITUSSIN) 100 mg/5 mL liquid Take 30 mL (600 mg total) by mouth 3 (three) times a day if needed for cough. ibuprofen (ADVIL,MOTRIN) 600 mg tablet Take 1 tablet (600 mg total) by mouth every 6 (six) hours if needed for mild pain. ipratropium-albu teroL (DUONEB) 0.5-2.5 mg/3 mL nebulizer solution Take 3 mL by nebulization every 6 (six) hours. magnesium oxide (MAG-OX) 400 mg (241.3 elemental magnesium) tablet Take 1.5 tablets (600 mg total) by mouth 3 (three) times a day. 90 tablet 2 06/16/2025 melatonin 3 mg tablet Take 1 tablet (3 mg total) by mouth at bedtime as needed for sleep. metoprolol succinate (TOPROL-XL) 25 mg 24 hr tablet Take 0.5 tablets (12.5 mg total) by mouth every 8 (eight) hours. Do not crush or chew. midodrine (PROAMATINE) 10 mg tablet Take 1 tablet (10 mg total) by mouth every 8 (eight) hours. 90 tablet 06/16/2025 5 pyRIDostigmine (MESTINON) 60 mg tablet Take 0.5 tablets (30 mg total) by mouth 4 (four) times a day. traMADoL 25 mg tabletIndication s:pain Take 50 mg by mouth every 4 (four) hours. Max Daily Amount: 300 mg traZODone (DESYREL) 50 mg tablet Take 1 tablet (50 mg total) by mouth at bedtime. documented as of this encounter Ordered Prescriptions Prescription Sig Dispense Quantity Refills Last Filled Start Date End Date busPIRone (BUSPAR) 10 mg tablet Take 1 tablet (10 mg total) by mouth 3 (three) times a day. 90 each 07/01/2025 6 metoprolol tartrate (LOPRESSOR) 25 mg tablet Take 0.5 tablets (12.5 mg total) by mouth every 8 (eight) hours. 45 each 06/30/2025 6 documented in this encounter Discharge Disposition Disposition Code Departure Means Destination Comment s Home or Self Care documented in this encounter Progress Notes * Elidia Rodriguez RN - 07/01/2025 3:05 PM EDT [facility] does have two new nurses that will be working with patient but not next week. * Elidia Rodriguez RN - 07/01/2025 3:03 PM EDT 07/01/25 1503 Transportation Transportation at discharge [facility] providing transportation raman What day is the transport expected? 07/01/25 What time is the transport expected? 1800 Final Discharge Disposition Home Health Care Services Fátima Wang and Tova of discharge today. No vent changes. [facility] notified of discharge as well as is [facility]. * Evangelina Chalino, BALDO - 07/01/2025 1:37 PM EDT 07/01/2025 @ 1:37 PM EDT Nutrition Follow Up Note Reason for RD Intervention: Assessment Type: Follow-up Reason for Assessment: Tube Feeding Additional Assessment Information: J Tube Anthropometrics: Height: 165.1 cm (65 ) Weight: 77.4 kg (170 lb 10.2 oz) BMI (Calculated): 28.4 BMI Class: Overweight IBW (lbs): 125 Recent Weight Change: Yes Other (Comment): weight in pounds: 170 06/21/25 bed scale, 184 06/13/25, 192 06/03, 147 02/01, 166 02/01 and 11/02, 155 09/02, 157 08/03 and 06/02 Current Diet and Supplements: Dietary Orders (From admission, onward) Start Ordered 06/22/25 1133 Diet, Tube Feeding/NPO [facility]; Jevity 1.5 James; Other (Comment); J Tube; 50; 100; Water; Other (specify); every 3 hours; NPO- No Exceptions; Tube Feed No Tray (Tube Feeding) Diet effective now Comments: -run Jevity 1.5 at 50 ml/hr. -give 100 ml water flush every 3 hours. Follow EN Algorithm Flowchart for tolerance Question Answer Comment Location: [facility] Tube feeding formula: Jevity 1.5 James Route: Other (Comment) Tube feed route comment: J Tube Tube feeding continuous rate (mL/hr): 50 Tube feeding flush (mL): 100 Tube feeding flush type: Water Tube feeding flush frequency: Other (specify) Tube feed flush comment: every 3 hours Diet NPO- No Exceptions Diet Tube Feed No Tray 06/22/25 1133 History of presenting illness: Patient is a 30 y.o. female with a history of Past Medical History: Diagnosis Date Gastrointestinal tube present ([facility] V24, [facility] V28) Myasthenia gravis ([facility] V24, [facility] V28) Tracheostomy dependent ([facility] V24, [facility] V28) Past Surgical History: Procedure Laterality Date IR PERCUTANEOUS JEJUNOSTOMY TUBE PLACEMENT Left TRACHEOSTOMY TUBE PLACEMENT admitted 06/20/2025 with Acute on chronic respiratory failure ([facility] V24, [facility] V28). Food/Nutrition History: Previously prescribed diets: Enteral nutrition order Tube Feeding Formula/Solution: Jevity 1.5 5 cartons per day over a 16 hours, one syringe water flush (60 ml) every 4 hours feeds are running, at the start and stop of tube feed cycle, and with meds throughout the day. to provide: 1775 caloires, 76 g protein, 900 ml free water from tune feeds plus water flushes. Self-selected diet(s) followed: NPO Weight History: Wt Readings from Last 10 Encounters: 06/21/25 77.4 kg (170 lb 10.2 oz) 06/13/25 83.5 kg (184 lb 1.4 oz) 05/19/25 87.1 kg (192 lb) 01/29/25 66.7 kg (147 lb) 01/25/25 75.3 kg (166 lb) 01/19/25 75.3 kg (166 lb) 10/30/24 75.3 kg (166 lb) 09/09/24 65.4 kg (144 lb 2.9 oz) 07/20/24 71.2 kg (157 lb) 05/18/24 71.2 kg (157 lb) Subjective Assessment: Pt tolerating tube feeds at goal rate last 06/30. 750 ml urine output in the past 24 hours. AskedRN to update actual weight. Awaiting antibiotic course to finish prior to discharge. Sodium has been running low normal will decrease water flushes to 75 ml every 3 hours. Nutrition-Related Lab Values: Results from last 7 days Lab Units 07/01/25 0344 06/30/25 0417 06/29/25 0329 SODIUM mmol/L 134 135 134 POTASSIUM mmol/L 4.7 4.5 4.4 PHOSPHORUS mg/dL 4.0 4.0 3.5 MAGNESIUM mg/dL 1.9 1.9 1.8* CHLORIDE mmol/L 97 98 97 CO2 mmol/L 36* 34* 35* BUN mg/dL 10 9 10 CREATININE mg/dL <0.15* 0.21* 0.17* EGFR mL/min/1.73m2 -- 158 166 CALCIUM mg/dL 8.2* 8.3* 8.2* BILIRUBIN TOTAL mg/dL -- -- 0.2 ALK PHOS unit/L -- -- 53 ALT unit/L -- -- 6* AST unit/L -- -- 15 GLUCOSE mg/dL 83 92 87 WBC AUTO K/mcL 5.9 4.4* 3.5* Lab Results Component Value Date LIPASE 13 05/29/2025 Medications: ammonium lactate, , Topical, Daily busPIRone, 10 mg, oral, TID calcium carbonate-vitamin D, 2 tablet, oral, BID chlorhexidine, 15 mL, Mouth/Throat, BID docusate, 200 mg, oral, Daily enoxaparin, 40 mg, subcutaneous, q24h JUAN MIGUEL famotidine, 20 mg, oral, BID ferrous sulfate, 300 mg, oral, BID folic acid, 1 mg, oral, Daily guaiFENesin, 200 mg, oral, q6h ipratropium-albuteroL, 3 mL, nebulization, q6h LORazepam, 2 mg, intravenous, Once magnesium oxide, 600 mg, oral, TID metoprolol tartrate, 12.5 mg, oral, q8h midodrine, 10 mg, oral, q8h pregabalin, 75 mg, j-tube, BID pyRIDostigmine, 30 mg, oral, 4x daily traMADoL, 50 mg, oral, q4h traZODone, 50 mg, oral, Nightly CONTINUOUS: PRN medications: albuterol, dextrose 50%, dextrose 50%, dextrose, dextrose, glucagon injection, guaiFENesin, melatonin Energy Needs: kcal, gm protein, mL fluid per day. Total Energy Estimated Needs: based on adjusted weight for quadraplegia [id number] calories (20-25 james/kg), 66-99 g protein (1-1.5 g/kg), fluid as per pension manager Height: 165.1 cm (65 ) Minute Ventilation (L/min): 5.7 L/min Temp: 37.1 ??C (98.8 ??F) Food/Nutrition-Current Status: Intake Type: Enteral Kcal: 1620 Protein (gm): 69 Free Water (mL): 821 Water Flushes: 100 q 3 hours % RDI: 96 Current Diet Status: Appropriate (NPO) Appetite: Other (Comment) (NPO) Intake Amount (%): Other (Comment) (NPO) Intake Assessment: Adequate Main IVF: None Propofol?: No Nutrition Focused Physical Findings: Overall Appearance: pt lying in bed Digestive System (Mouth to Rectum): Swallowing difficulty Skin: right foot, right ankle pressure injures Fluid Accumulation/Edema: +1 (per [facility] charting) Nutrition Diagnosis: Code Type: None Identified Status: No improvement (pt working with WATCH COMMANDER to strengthen swallow muscles, is fearful about PO trials) Diagnosis: Swallowing Difficulty Etiology: Physiologic causes Symptoms: as evidenced by chronic J tube feeds Nutrition Interventions: Enteral Nutrition Collaboration and Referral of Nutrition Care: Collaborate with Other Providers Enteral Nutrition: Access Type: J-tube Formula: Jevity 1.5 James Feeding Type: Continuous Goal Rate: 55 Water Flush: 75 mL Water Flush Frequency: (q 3 hours) To provide at 90% delivery: 1620 calories (25/kg), 69 g protein (1 g/kg), 1421 ml free water (22 ml/kg- 821 via tube feeds, 600 via flushes) Goals: EN: Patient tolerating goal TF. , Monitor/control glucose levels, Electrolytes within normal range., Maintain weight., Stooling appropriately., and Wound healing progress. Coordination of Patient Care: Verbal discussion with RN. Monitoring/Evaluation: Enteral Nutrition Intake, Weight, Renal/Electrolyte Profile, Gastrointestinal Profile Follow Up: Nutrition Priority Level: Moderate Nutritional Discharge Recommendations: Additional Information: recommend patient return to previous home tube feed regemin with [facility] RD remains available and will continue to follow. Signature: Evangelina Allred RD * Parveen Warner DO - 06/30/2025 8:45 AM EDT [facility] PROGRESS NOTE Code Status: Full Code - Confirmed SUBJECTIVE ICU COURSE ANGELES/THOMAS 06/20: ICU ADMIT. ICU consulted by Dr. Ronnie Sierra for evaulation of 30 yof, well known to this ICUwith hx of MG, paraplegia, chronic trach and PEG, nocturnal vent dependence, presenting with SOB and CP starting today. She was recently discharged from this ICU on 06/16 after being admitted for multifocal pneumonia and completing course of abx. Today her family reports she developed SOB this afternoon while on trach collar and refused to go back on the vent, later developing worsening SOB and anxiety. ED workup showing sinus tachycardia in the 150s, tachypnea in the 30-40s, BP stable, O2 sat 90s on trach collar, febrile to 100.3. Lab work showing WBC 11, VBG 7.37/69/33, lactate 0.8, trop 12, BNP 93, mag 1.8. UA negative. CXR showing haziness in RLL appears similar to prior, trach in good position. CTA ordered and pending. Deep suctioning was performed and pt placed on vent setting, able to generate tidal volumes in the 400s. HR improved to 140s after ativan 1mg. After discussion with family member at bedside using robotic machine tender production, decision was made to admit pt to ICU for further management of acute on chronic respiratory failure in setting of hospital-acquired PNA vs mucus plugging vs PE vs severe anxiety. [facility]: Transfer of care received from [facility] neelam Stiles, PAC. Overnight events and EMR reviewed. Patient examined and discussed with ICU bedside nurse and ICU multidisciplinary team on AM rounds. Overnight and AM noteable events include: No new clinical events overnight AVSS Comfortable and relaxed on dexmedetomidine infusion Minimal tracheal secretions sputum cultures pending [facility] 06/22: Transfer of care received from [facility] neelam Stiles, PAC. Overnight events and EMR reviewed. Patient examined and discussed with ICU bedside nurse and ICU multidisciplinary team on AM rounds. Overnight and AM noteable events include: No new clinical events overnight AVSS AM labs and VBG are unremarkable except for Hb 6.8 from 7.7 in the clinical setting of 2 L positivefluid balance since admission without evidence of active blood loss ( likely dilutional anemia on anemia of chronic disease. Admission sputum cultures are remarkable for preliminarily positive for gram- negative bacilli Admission blood cultures are preliminarily no growth to date Patient will remain on current antimicrobials regimen with Zosyn and minocycline (for stenotrophomonas) until cultures/sensitivities are final BONACUM/HUNG See [facility] PM 06/23- DYLANIACONO 06/28: Transfer of care received from [facility] DELMIS Peter. Overnight events and EMR reviewed. Patient examined and discussed with ICU bedside nurse and ICU multidisciplinary team on AM rounds. Overnight and AM noteable events include: No new clinical events overnight Awaiting completion of antimicrobial course prior to discharge LEVRAULT 06/29: Patient seen and examined. No complaints overnight. Stable hemodynamically with stable oxygenation on vent support. Await completion of antibiotics for discharge. 06/30: Patient seen and examined. No clinical changes. Discharge anticipated following course of antibiotics. OBJECTIVE FLUID BALANCE VITAL SIGNS Intake/Output Summary (Last 24 hours) at 06/30/2025 0845 Last data filed at 06/30/2025 0757 Gross per 24 hour Intake 1361.67 ml Output 1750 ml Net -388.33 ml Weight change: Visit Vitals BP 98/62 Pulse (!) 113 Temp 36.9 ??C (98.4 ??F) (Tympanic) Resp 15 OXYGENATION AND VENTILATION Vent Mode: Pressure control FiO2 (%): [30 %] 30 % S RR: [14] 14 S VT: [400 mL] 400 mL PEEP/CPAP (cm H2O): [8 cm H20] 8 cm H20 MAP (cm H2O): [12-13] 12 ABG Lab Results Component Value Date PHART 7.40 05/27/2025 PHART 7.47 (H) 10/13/2024 [id number] 69 (HH) 05/27/2025 [id number] 65 (HH) 10/13/2024 PO2ART 61 (L) 05/27/2025 PO2ART 92 10/13/2024 [id number] 36.9 (H) 05/27/2025 [id number] 41.3 (H) 10/13/2024 [id number] 94.5 (L) 05/27/2025 [id number] 97.2 10/13/2024 BEART 15.5 (H) 05/27/2025 BEART 21.0 (H) 10/13/2024 [facility] 05/27/2025 Comment: right brachial [facility] Pass 10/13/2024 FIO2 0.40 05/27/2025 FIO2 0.30 10/13/2024 PHYSICAL EXAMINATION In general the patient is awake, alert, no distress. HEENT is unremarkable. Pupils are equal round reactive to light. Sclera are anicteric. Neck is supple, no JVD. Trach in place. Heart is regular, borderline tachycardic. Chest is clear. Manage bilaterally. Abdomen is soft, x-ray intact. Extremities notable for nonpitting edema and external rotation at the hips chronically. Distal pulses palpable in the radial/dorsalis pedis. Neuro exam is grossly nonfocal, moves all extremities on command. Rectal is deferred is deferred. No Fuentes. Skin is warm and dry. CURRENT MEDICATIONS Scheduled Meds: acetylcysteine, 4 mL, nebulization, q6h ammonium lactate, , Topical, Daily busPIRone, 10 mg, oral, TID calcium carbonate-vitamin D, 2 tablet, oral, BID cefTAZidime, 2 g, intravenous, q8h JUAN MIGUEL chlorhexidine, 15 mL, Mouth/Throat, BID docusate, 200 mg, oral, Daily enoxaparin, 40 mg, subcutaneous, q24h JUAN MIGUEL famotidine, 20 mg, oral, BID ferrous sulfate, 300 mg, oral, BID folic acid, 1 mg, oral, Daily guaiFENesin, 200 mg, oral, q6h ipratropium-albuteroL, 3 mL, nebulization, q6h LORazepam, 2 mg, intravenous, Once magnesium oxide, 600 mg, oral, TID metoprolol tartrate, 12.5 mg, oral, q8h midodrine, 10 mg, oral, q8h pregabalin, 75 mg, j-tube, BID pyRIDostigmine, 30 mg, oral, 4x daily traMADoL, 50 mg, oral, q4h traZODone, 50 mg, oral, Nightly PRN medications: albuterol, dextrose 50%, dextrose 50%, dextrose, dextrose, glucagon injection, guaiFENesin, melatonin Continuous Infusions: PRN Meds: PRN medications: albuterol, dextrose 50%, dextrose 50%, dextrose, dextrose, glucagon injection, guaiFENesin, melatonin Outpatient medications reviewed and reconciled with those appropriate to this admission. LINES & DRAINS CVC 06/21/25 Triple Lumen Non-tunneled Left left subclavian (Active) Site Assessment Clean;Dry;Intact 06/30/25 07 Proximal Lumen Status Capped;Normal saline locked 06/30/25 0400 Medial 1 Lumen Status Capped;Normal saline locked 06/30/25 040 Distal Lumen Status Capped;Normal saline locked 06/30/25 0400 Phlebitis Scale 0 06/30/25 07 Dressing Type Transparent;Chlorhexidine patch 06/30/25 0704 Dressing Status Clean;Dry;Intact 06/30/25 07 Dressing Intervention Other (Comment) 06/30/25 07 Dressing Change Due 07/01/25 06/29/251999 Line Necessity Yes, meets criteria 06/29/251999 Line Necessity Reviewed With CARINE 06/24/25720 Gastrostomy/Enterostomy Jejunostomy LUQ (Active) Surrounding Skin Macerated;Reddened 06/30/25 040 Drain Status Other (Comment) 06/21/25 1350 Drainage Appearance Other (Comment) 06/23/251999 Site Description Reddened 06/30/25399 Dressing Status Old drainage;Removed 06/30/25399 Dressing Intervention New dressing 06/29/251999 Dressing Type Foam;Split gauze 06/30/25399 Tube Feeding Frequency Continuous 06/30/25399 Tube Feeding Jevity 1.5 James 06/30/25399 Tube Feeding Strength Full strength 06/30/25399 Tube Feeding Rate (mL/hr) 50 mL 06/29/251999 Tube Feeding Method Continuous per pump 06/29/251999 Tube Feeding Bag Changed No 06/30/25399 Tube Feeding Residual (mL) 70 mL 06/24/25399 Feeding Tube Flushed With Sterile water 06/29/251999 Flush Intake Volume (mL) 100 mL 06/30/25 06 Intake (mL) 50 mL 06/30/25599 Surgical Airway Shiley Cuffed 7.5 (Active) Status Secured 06/30/25 041 Site Assessment Clean;Dry 06/30/25 041 Site Care Cleansed;Dressing applied 06/29/251999 Inner Cannula Care Cleansed/dried 06/29/251999 Ties Assessment Clean;Dry 06/30/25415 Cuff Pressure (cm H2O) 0 cm H2O 06/29/25 08 Line necessity addressed daily. NUTRITION Diet Order: Dietary Orders (From admission, onward) Start Ordered 06/22/25 1133 Diet, Tube Feeding/NPO [facility]; Jevity 1.5 James; Other (Comment); J Tube; 50; 100; Water; Other (specify); every 3 hours; NPO- No Exceptions; Tube Feed No Tray (Tube Feeding) Diet effective now Comments: -run Jevity 1.5 at 50 ml/hr. -give 100 ml water flush every 3 hours. Follow EN Algorithm Flowchart for tolerance Question Answer Comment Location: [facility] Tube feeding formula: Jevity 1.5 James Route: Other (Comment) Tube feed route comment: J Tube Tube feeding continuous rate (mL/hr): 50 Tube feeding flush (mL): 100 Tube feeding flush type: Water Tube feeding flush frequency: Other (specify) Tube feed flush comment: every 3 hours Diet NPO- No Exceptions Diet Tube Feed No Tray 06/22/25 1133 LAB RESULTS Reviewed. RADIOLOGY I have reviewed the relevant diagnostic imaging. MICROBIOLOGY I have reviewed the relevant microbiology. Patient Active Problem List Diagnosis Hypercapnic respiratory failure ([facility] V24, [facility] V28) Myasthenia gravis ([facility] V24, [facility] V28[facility] Rheumatoid arthritis involving multiple sites with positive rheumatoid factor ([facility] V24, [facility] Jejunostomy tube in situ ([facility] V24, [facility] V28) Adrenal insufficiency ([facility] V24) Iron deficiency anemia Functional incontinence Failure to thrive in adult Tracheostomy in place ([facility] V24, [facility] V28) Weakness Respiratory disorder with ventilator dependence ([facility] V24, [facility] V28) TOM positive Immunocompromised state ([facility] V24) Atelectasis of both lungs On mechanically assisted ventilation ([facility] V24, [facility] V28) Neuromyopathy syndrome ([facility] V24, [facility] V28[facility] Quadriplegia and quadriparesis ([facility] V24, [facility] V28) Chronic tachycardia Hypoxia Chronic hypoxic respiratory failure ([facility] V24, [facility] V28) Chronic respiratory failure requiring use of nocturnal mechanical ventilation through tracheostomy ([facility] V24, [facility] V28) Acute on chronic respiratory failure ([facility] V24, [facility] V28) Anxiety ASSESSMENT & PLAN This is a 30-year-old female with a history of myasthenia gravis, bedbound, chronic vent support. Was here for protracted stay, discharged. Returned to the hospital on 06/20 with recurrent respiratoryfailure and leukocytosis. Started on broad-spectrum antibiotics. Growing Pseudomonas and Serratia from the sputum, likely colonized. Neuro: Stable. CV: Stable. Intermittently tachycardic. Sinus tach is chronic. Maintained on beta-blockers in the outpatient setting. Pulm: Wean vent support as tolerated. Treating healthcare associated pneumonia. GI: Continue tube feeding. Renal: Monitor I's and O's and electrolytes. No Fuentes necessary. ID: Continue antibiotics for specified course, to complete tomorrow morning.. Endocrine: Stable. Proph: Lovenox and Pepcid. Ventilator associated pneumonia bundle is in place. Code: Full. Mom and sister are listed healthcare proxies. Disp: Continued ICU level of care for chronic respiratory failure requiring vent support. Likely discharge tomorrow following antibiotics. If tendency towards frequent readmissions, may need to revisit patient's living situation. Restraints: Not indicated. DVT Prophylaxis: Ordered. Family Updated: Daily and as needed. 42 minutes of critical care time was spent in direct patient care at the bedside or in the immediate area with this patient. Patient is acutely ill with system failure. Patient is at high risk for decompensation. This time was spent assessing and managing the patient, interpreting labs and imaging,coordinating care with other medical providers, and gathering history and discussing management andprognosis with family. Parveen Warner DO * Archana Redd RN - 06/30/2025 5:50 AM EDT Problem: Falls: Fall Risk (Adult IP BH) Goal: (Goal) Patient will experience maximum safety and reduce risk for falls. Outcome: Progressing Goal: Patient will not fall or injure themselves during hospitalization. Outcome: Progressing Problem: Respiratory distress related to problem list condition Goal: Resident will be free of signs and symptoms of respiratory distress aeb lungs clear to ausc bilateral, resp even and nonlabored Outcome: Progressing Problem: Cognitive: Santiago Adalberto Fall Risk Goal: Last Known Fall Outcome: Progressing Goal: Mobility requiring assistance of person or device Outcome: Progressing Goal: Dizziness Outcome: Progressing Goal: Medications Outcome: Progressing Goal: Mental Status/LOC/Awareness Outcome: Progressing Goal: Toileting Needs Outcome: Progressing Goal: Volume and Electrolyte Status Outcome: Progressing Goal: Communication/Sensory Outcome: Progressing Goal: Behavior Outcome: Progressing Goals: Clinical Goals for the Shift: RESOLUTION OF sob Identify possible barriers to meeting goals/advancing plan of care: IV ABX, nocturnal vent dependence Stability of the patient: Moderately Stable - Low risk of patient condition declining or worsening End of Shift Summary: Pt had relatively uneventful shift. No complaints. Alert and oriented. Afebrile. SR. BP stable. Shiley [id number] trach. Full trach care provided. Tolerated AC 14/400/8/30%. Lungs sounds predominantly clear with occasional coarseness. Noted increased in pt ability to mobilize secretions, able to use call nieves to indicate need for suctioning. BS WNL, 1 large soft/pasty BM. Voiding via bed gutierrez. Skin as previously documented. Pt continues to refuse repositioning, does readjust body in bed. AM labs stable. Continues IV ABX, pending discharge upon completion. * Parveen Warner, - 06/29/2025 9:55 AM EDT [facility] PROGRESS NOTE Code Status: Full Code - Confirmed SUBJECTIVE ICU COURSE ANGELES/THOMAS 06/20: ICU ADMIT. ICU consulted by Dr. Ronnie Sierra for evaulation of 30 yof, well known to this ICUwith hx of MG, paraplegia, chronic trach and PEG, nocturnal vent dependence, presenting with SOB and CP starting today. She was recently discharged from this ICU on 06/16 after being admitted for multifocal pneumonia and completing course of abx. Today her family reports she developed SOB this afternoon while on trach collar and refused to go back on the vent, later developing worsening SOB and anxiety. ED workup showing sinus tachycardia in the 150s, tachypnea in the 30-40s, BP stable, O2 sat 90s on trach collar, febrile to 100.3. Lab work showing WBC 11, VBG 7.37/69/33, lactate 0.8, trop 12, BNP 93, mag 1.8. UA negative. CXR showing haziness in RLL appears similar to prior, trach in good position. CTA ordered and pending. Deep suctioning was performed and pt placed on vent setting, able to generate tidal volumes in the 400s. HR improved to 140s after ativan 1mg. After discussion with family member at bedside using robotic machine tender production, decision was made to admit pt to ICU for further management of acute on chronic respiratory failure in setting of hospital-acquired PNA vs mucus plugging vs PE vs severe anxiety. LOIACOX MONETTO 06/21: Transfer of care received from [facility] neelam Stiles, PAC. Overnight events and EMR reviewed. Patient examined and discussed with ICU bedside nurse and ICU multidisciplinary team on AM rounds. Overnight and AM noteable events include: No new clinical events overnight AVSS Comfortable and relaxed on dexmedetomidine infusion Minimal tracheal secretions sputum cultures pending [facility]IACOX [place]TO 06/22: Transfer of care received from [facility] neelam Stiles, PAC. Overnight events and EMR reviewed. Patient examined and discussed with ICU bedside nurse and ICU multidisciplinary team on AM rounds. Overnight and AM noteable events include: No new clinical events overnight AVSS AM labs and VBG are unremarkable except for Hb 6.8 from 7.7 in the clinical setting of 2 L positivefluid balance since admission without evidence of active blood loss ( likely dilutional anemia on anemia of chronic disease. Admission sputum cultures are remarkable for preliminarily positive for gram- negative bacilli Admission blood cultures are preliminarily no growth to date Patient will remain on current antimicrobials regimen with Zosyn and minocycline (for stenotrophomonas) until cultures/sensitivities are final BONACUM/HUNG See [facility] PM [facility] Transfer of care received from [facility] neelam Aldana, PAC. Overnight events and EMR reviewed. Patient examined and discussed with ICU bedside nurse and ICU multidisciplinary team on AM rounds. Overnight and AM noteable events include: No new clinical events overnight Awaiting completion of antimicrobial course prior to discharge LEVRAULT 06/29: Patient seen and examined. No complaints overnight. Stable hemodynamically with stable oxygenation on vent support. Completion of antibiotics for discharge. OBJECTIVE FLUID BALANCE VITAL SIGNS Intake/Output Summary (Last 24 hours) at 06/29/2025 0920 Last data filed at 06/29/2025 0652 Gross per 24 hour Intake 1760 ml Output 950 ml Net 810 ml Weight change: Visit Vitals BP 111/72 Pulse 85 Temp 36.9 ??C (98.4 ??F) (Temporal) Resp 14 OXYGENATION AND VENTILATION Vent Mode: Volume control/Assist control FiO2 (%): [30 %] 30 % S RR: [14] 14 S VT: [400 mL] 400 mL PEEP/CPAP (cm H2O): [8 cm H20] 8 cm H20 MAP (cm H2O): [12-13] 12 ABG Lab Results Component Value Date PHART 7.40 05/27/2025 PHART 7.47 (H) 10/13/2024 [id number] 69 (HH) 05/27/2025 [id number] 65 (HH) 10/13/2024 PO2ART 61 (L) 05/27/2025 PO2ART 92 10/13/2024 [id number] 36.9 (H) 05/27/2025 [id number] 41.3 (H) 10/13/2024 [id number] 94.5 (L) 05/27/2025 [id number] 97.2 10/13/2024 BEART 15.5 (H) 05/27/2025 BEART 21.0 (H) 10/13/2024 [facility] 05/27/2025 Comment: right brachial [facility] Pass 10/13/2024 FIO2 0.40 05/27/2025 FIO2 0.30 10/13/2024 PHYSICAL EXAMINATION In general the patient is awake, alert, no distress. HEENT is unremarkable. Pupils are equal round reactive to light. Sclera are anicteric. Neck is supple, no JVD. Trach in place. Heart is regular, borderline tachycardic. Chest is clear. Manage bilaterally. Abdomen is soft, x-ray intact. Extremities notable for nonpitting edema and external rotation at the hips chronically. Distal pulses palpable in the radial/dorsalis pedis. Neuro exam is grossly nonfocal, moves all extremities on command. Rectal is deferred is deferred. No Fuentes. Skin is warm and dry. CURRENT MEDICATIONS Scheduled Meds: acetylcysteine, 4 mL, nebulization, q6h ammonium lactate, , Topical, Daily busPIRone, 10 mg, oral, TID calcium carbonate-vitamin D, 2 tablet, oral, BID cefTAZidime, 2 g, intravenous, q8h JUAN MIGUEL chlorhexidine, 15 mL, Mouth/Throat, BID docusate, 200 mg, oral, Daily enoxaparin, 40 mg, subcutaneous, q24h JUAN MIGUEL famotidine, 20 mg, oral, BID ferrous sulfate, 300 mg, oral, BID folic acid, 1 mg, oral, Daily guaiFENesin, 200 mg, oral, q6h ipratropium-albuteroL, 3 mL, nebulization, q6h LORazepam, 2 mg, intravenous, Once magnesium oxide, 600 mg, oral, TID metoprolol tartrate, 12.5 mg, oral, q8h midodrine, 10 mg, oral, q8h pregabalin, 75 mg, j-tube, BID pyRIDostigmine, 30 mg, oral, 4x daily traMADoL, 50 mg, oral, q4h traZODone, 50 mg, oral, Nightly PRN medications: albuterol, dextrose 50%, dextrose 50%, dextrose, dextrose, glucagon injection, guaiFENesin, melatonin Continuous Infusions: PRN Meds: PRN medications: albuterol, dextrose 50%, dextrose 50%, dextrose, dextrose, glucagon injection, guaiFENesin, melatonin Outpatient medications reviewed and reconciled with those appropriate to this admission. LINES & DRAINS CVC 06/21/25 Triple Lumen Non-tunneled Left left subclavian (Active) Site Assessment Clean;Dry;Intact 06/29/25 0916 Proximal Lumen Status Blood return noted;Flushed;Normal saline locked 06/29/25 0916 Medial 1 Lumen Status Blood return noted;Flushed;Normal saline locked 06/29/25 0916 Distal Lumen Status Blood return noted;Flushed;Normal saline locked 06/29/25 0916 Phlebitis Scale 0 06/29/25 0916 Dressing Type Transparent with Chlorhexidine Gluconate gel 06/29/25 0652 Dressing Status Clean;Dry;Intact 06/29/25 0916 Dressing Intervention New dressing 06/24/25 0856 Dressing Change Due 07/01/25 06/29/25 0916 Line Necessity Yes, meets criteria 06/29/25 09 Line Necessity Reviewed With CARINE 06/24/25 0721 Gastrostomy/Enterostomy Jejunostomy LUQ (Active) Surrounding Skin Macerated;Reddened 06/29/25 0551 Drain Status Other (Comment) 06/21/25 1350 Drainage Appearance Other (Comment) 06/23/251999 Site Description Reddened 06/28/251999 Dressing Status Clean;Dry;Intact 06/29/25 0551 Dressing Intervention Dressing changed 06/24/25 07 Dressing Type Split gauze;Foam 06/29/25 0400 Tube Feeding Frequency Continuous 06/29/25 0400 Tube Feeding Jevity 1.5 James 06/29/25 040 Tube Feeding Strength Full strength 06/28/25 040 Tube Feeding Rate (mL/hr) 50 mL 06/29/25 0400 Tube Feeding Method Continuous per pump 06/29/25 040 Tube Feeding Bag Changed No 06/29/25 040 Tube Feeding Residual (mL) 70 mL 06/24/25 040 Feeding Tube Flushed With Sterile water 06/29/25 040 Flush Intake Volume (mL) 100 mL 06/29/25 0500 Intake (mL) 80 mL 06/29/25 0652 Surgical Airway Shiley Cuffed 7.5 (Active) Status Secured 06/29/25 08 Site Assessment Dry;Clean 06/29/25 08 Site Care Cleansed;Dried;Dressing applied 06/29/25 08 Inner Cannula Care Cleansed/dried 06/29/25 0830 Ties Assessment Clean;Dry;Intact;Secure 06/29/25 08 Cuff Pressure (cm H2O) 0 cm H2O 06/29/25829 Line necessity addressed daily. NUTRITION Diet Order: Dietary Orders (From admission, onward) Start Ordered 06/22/25 1133 Diet, Tube Feeding/NPO [facility]; Jevity 1.5 James; Other (Comment); J Tube; 50; 100; Water; Other (specify); every 3 hours; NPO- No Exceptions; Tube Feed No Tray (Tube Feeding) Diet effective now Comments: -run Jevity 1.5 at 50 ml/hr. -give 100 ml water flush every 3 hours. Follow EN Algorithm Flowchart for tolerance Question Answer Comment Location: [facility] Tube feeding formula: Jevity 1.5 James Route: Other (Comment) Tube feed route comment: J Tube Tube feeding continuous rate (mL/hr): 50 Tube feeding flush (mL): 100 Tube feeding flush type: Water Tube feeding flush frequency: Other (specify) Tube feed flush comment: every 3 hours Diet NPO- No Exceptions Diet Tube Feed No Tray 06/22/25 1133 LAB RESULTS Reviewed. RADIOLOGY I have reviewed the relevant diagnostic imaging. MICROBIOLOGY I have reviewed the relevant microbiology. Patient Active Problem List Diagnosis Hypercapnic respiratory failure ([facility] V24, [facility] V28) Myasthenia gravis ([facility] V24, [facility] V28) Rheumatoid arthritis involving multiple sites with positive rheumatoid factor ([facility] V24, [facility]) Jejunostomy tube in situ ([facility] V24, [facility] V28) Adrenal insufficiency ([facility] V24) Iron deficiency anemia Functional incontinence Failure to thrive in adult Tracheostomy in place ([facility] V24, [facility] V28) Weakness Respiratory disorder with ventilator dependence ([facility] V24, [facility] V28) TOM positive Immunocompromised state ([facility] V24) Atelectasis of both lungs On mechanically assisted ventilation ([facility] V24, [facility] V28) Neuromyopathy syndrome ([facility] V24, [facility] V28) Quadriplegia and quadriparesis ([facility] V24, [facility] V28) Chronic tachycardia Hypoxia Chronic hypoxic respiratory failure ([facility] V24, [facility] V28) Chronic respiratory failure requiring use of nocturnal mechanical ventilation through tracheostomy ([facility] V24, [facility] V28) Acute on chronic respiratory failure ([facility] V24, [facility] V28) Anxiety ASSESSMENT & PLAN This is a 30-year-old female with a history of myasthenia gravis, bedbound, chronic vent support. Was here for protracted stay, discharged. Returned to the hospital on 06/20 with recurrent respiratoryfailure and leukocytosis. Started on broad-spectrum antibiotics. Growing Pseudomonas and Serratia from the sputum, likely colonized. Neuro: Stable. CV: Stable. Intermittently tachycardic. Sinus tach is chronic. Maintained on beta-blockers in the outpatient setting. Pulm: Wean vent support as tolerated. Treating healthcare associated pneumonia. GI: Continue tube feeding. Renal: Monitor I's and O's and electrolytes. No Fuentes necessary. ID: Continue antibiotics for specified course. Endocrine: Stable. Proph: Lovenox and Pepcid. Ventilator associated pneumonia bundle is in place. Code: Full. Mom and sister are listed healthcare proxies. Disp: Continued ICU level of care for chronic respiratory failure requiring vent support. Restraints: Not indicated. DVT Prophylaxis: Ordered. Family Updated: Daily and as needed. 44 minutes of critical care time was spent in direct patient care at the bedside or in the immediate area with this patient. Patient is acutely ill with system failure. Patient is at high risk for decompensation. This time was spent assessing and managing the patient, interpreting labs and imaging,coordinating care with other medical providers, and gathering history and discussing management andprognosis with family. Parveen Warner DO * Araseli Morton MD - 06/28/2025 8:01 PM EDT [facility] PROGRESS NOTE Code Status: Full Code - Confirmed Length of Stay: 9 ICU Day: 9 SUBJECTIVE ICU COURSE ANGELES/THOMAS 06/20: ICU ADMIT. ICU consulted by Dr. Ronnie Sierra for evaulation of 30 yof, well known to this ICUwith hx of MG, paraplegia, chronic trach and PEG, nocturnal vent dependence, presenting with SOB and CP starting today. She was recently discharged from this ICU on 06/16 after being admitted for multifocal pneumonia and completing course of abx. Today her family reports she developed SOB this afternoon while on trach collar and refused to go back on the vent, later developing worsening SOB and anxiety. ED workup showing sinus tachycardia in the 150s, tachypnea in the 30-40s, BP stable, O2 sat 90s on trach collar, febrile to 100.3. Lab work showing WBC 11, VBG 7.37/69/33, lactate 0.8, trop 12, BNP 93, mag 1.8. UA negative. CXR showing haziness in RLL appears similar to prior, trach in good position. CTA ordered and pending. Deep suctioning was performed and pt placed on vent setting, able to generate tidal volumes in the 400s. HR improved to 140s after ativan 1mg. After discussion with family member at bedside using robotic machine tender production, decision was made to admit pt to ICU for further management of acute on chronic respiratory failure in setting of hospital-acquired PNA vs mucus plugging vs PE vs severe anxiety. THOMAS 06/21: Transfer of care received from [facility] cleaning custodiandhruv Stiles, PAC. Overnight events and EMR reviewed. Patient examined and discussed with ICU bedside nurse and ICU multidisciplinary team on AM rounds. Overnight and AM noteable events include: No new clinical events overnight AVSS Comfortable and relaxed on dexmedetomidine infusion Minimal tracheal secretions sputum cultures pending LOIACONO 06/22: Transfer of care received from [facility] neelam Stiles, PAC. Overnight events and EMR reviewed. Patient examined and discussed with ICU bedside nurse and ICU multidisciplinary team on AM rounds. Overnight and AM noteable events include: No new clinical events overnight AVSS AM labs and VBG are unremarkable except for Hb 6.8 from 7.7 in the clinical setting of 2 L positivefluid balance since admission without evidence of active blood loss ( likely dilutional anemia on anemia of chronic disease. Admission sputum cultures are remarkable for preliminarily positive for gram- negative bacilli Admission blood cultures are preliminarily no growth to date Patient will remain on current antimicrobials regimen with Zosyn and minocycline (for stenotrophomonas) until cultures/sensitivities are final BONACUM/HUNG See [facility] PM 06/23- LOIACONO 06/28: Transfer of care received from [facility] cleaning custodiandhruv Aldana, PAC. Overnight events and EMR reviewed. Patient examined and discussed with ICU bedside nurse and ICU multidisciplinary team on AM rounds. Overnight and AM noteable events include: No new clinical events overnight Awaiting completion of antimicrobial course prior to discharge OBJECTIVE FLUID BALANCE VITAL SIGNS Intake/Output Summary (Last 24 hours) at 06/28/20252000 Last data filed at 06/28/2025 1700 Gross per 24 hour Intake 1415 ml Output 950 ml Net 465 ml Weight change: Visit Vitals BP 112/66 Pulse 87 Temp 36.1 ??C (96.9 ??F) (Temporal) Resp 19 OXYGENATION AND VENTILATION Vent Mode: Volume control/Assist control FiO2 (%): [30 %] 30 % S RR: [14] 14 S VT: [400 mL] 400 mL PEEP/CPAP (cm H2O): [8 cm H20] 8 cm H20 MAP (cm H2O): [12-13] 12 ABG Lab Results Component Value Date PHART 7.40 05/27/2025 PHART 7.47 (H) 10/13/2024 [id number] 69 (HH) 05/27/2025 [id number] 65 (HH) 10/13/2024 PO2ART 61 (L) 05/27/2025 PO2ART 92 10/13/2024 [id number] 36.9 (H) 05/27/2025 HIT9LDA 41.3 (H) 10/13/2024 [id number] 94.5 (L) 05/27/2025 [id number] 97.2 10/13/2024 BEART 15.5 (H) 05/27/2025 BEART 21.0 (H) 10/13/2024 [facility] 05/27/2025 Comment: right brachial [facility] Pass 10/13/2024 FIO2 0.40 05/27/2025 FIO2 0.30 10/13/2024 PHYSICAL EXAMINATION General: on mechanically assisted ventilation via #7.5 tracheostomy. Appearance: Patient awake alert, smiling and pleasant demeanor. No Acute Distress Head Exam: Midline tracheostomy and JT tubes in place . Normocephalic, Symmetric HEENT: Sclera Anicteric, PERRL, Moist Mucous Membranes, Trachea Midline, Other Thorax: No AccessoryMuscle Use Chest: Left subclavian TLC in place. Bilateral scattered rhonchi that clear with suctioning and weak cough. Symmetric chest rise with mechanically assisted ventilation Abdomen: Soft, Non-tender, hypoactive but present BS all 4 quarants. JT heme (-) and w/o without blood Rectal Exam: Heme (-) loose , liquid stool) : IUBC in place Skin: Skin Color Normal, Skin Temperature Normal, Skin Turgor Normal. CRF < 3sec Wound Present: No Upper Extremity Appearance: bilateral chronic flexion contractures without change. R brachial PICC line in place Lower Extremity Appearance: bilateral chronic flexion contractures without change Mental Status: A, A & interactive with family and bedside personnel Follows Commands: Yes, but limited by baseline quadraparesis Motor Response: symmetric, non-focally localizes noxious stimuli all 4 extremities Sensory Response: nonfocally localizes noxious stimuli all 4 extremities CURRENT MEDICATIONS Scheduled Meds: acetylcysteine, 4 mL, nebulization, q6h ammonium lactate, , Topical, Daily busPIRone, 10 mg, oral, TID calcium carbonate-vitamin D, 2 tablet, oral, BID cefTAZidime, 2 g, intravenous, q8h JUAN MIGUEL chlorhexidine, 15 mL, Mouth/Throat, BID docusate, 200 mg, oral, Daily enoxaparin, 40 mg, subcutaneous, q24h JUAN MIGUEL famotidine, 20 mg, oral, BID ferrous sulfate, 300 mg, oral, BID folic acid, 1 mg, oral, Daily guaiFENesin, 200 mg, oral, q6h ipratropium-albuteroL, 3 mL, nebulization, q6h LORazepam, 2 mg, intravenous, Once magnesium oxide, 600 mg, oral, TID metoprolol tartrate, 12.5 mg, oral, q8h midodrine, 10 mg, oral, q8h pregabalin, 75 mg, j-tube, BID pyRIDostigmine, 30 mg, oral, 4x daily traMADoL, 50 mg, oral, q4h traZODone, 50 mg, oral, Nightly PRN medications: albuterol, dextrose 50%, dextrose 50%, dextrose, dextrose, glucagon injection, guaiFENesin, melatonin, sodium chloride Continuous Infusions: PRN Meds: PRN medications: albuterol, dextrose 50%, dextrose 50%, dextrose, dextrose, glucagon injection, guaiFENesin, melatonin, sodium chloride LINES & DRAINS CVC 06/21/25 Triple Lumen Non-tunneled Left left subclavian (Active) Site Assessment Clean;Dry;Intact 06/28/25 1504 Proximal Lumen Status Infusing 06/28/25 1058 Medial 1 Lumen Status Blood return noted;Flushed;Normal saline locked;Capped 06/28/25 1058 Distal Lumen Status Blood return noted;Capped;Flushed;Normal saline locked 06/28/25 1058 Phlebitis Scale 0 06/28/25 1058 Dressing Type Transparent with Chlorhexidine Gluconate gel 06/28/25 1504 Dressing Status Clean;Dry;Intact 06/28/25 1504 Dressing Intervention New dressing 06/24/25 0856 Dressing Change Due 07/01/25 06/28/25 0000 Line Necessity Yes, meets criteria 06/28/25 1058 Line Necessity Reviewed With CARINE 06/24/25 0721 Gastrostomy/Enterostomy Jejunostomy LUQ (Active) Surrounding Skin Macerated;Reddened 06/28/25 1351 Drain Status Other (Comment) 06/21/25 1350 Drainage Appearance Other (Comment) 06/23/251999 Site Description Leaking at site 06/28/25 0400 Dressing Status Clean;Dry;Intact 06/28/25 1351 Dressing Intervention Dressing changed 06/24/25 0721 Dressing Type Split gauze;Foam 06/28/25 0400 Tube Feeding Frequency Continuous 06/28/25 0400 Tube Feeding Jevity 1.5 James 06/28/25 0400 Tube Feeding Strength Full strength 06/28/25 0400 Tube Feeding Rate (mL/hr) 50 mL 06/28/25 0000 Tube Feeding Method Continuous per pump 06/28/25 0000 Tube Feeding Bag Changed No 06/28/25 0400 Tube Feeding Residual (mL) 70 mL 06/24/25 0400 Feeding Tube Flushed With Sterile water 06/28/25 0000 Flush Intake Volume (mL) 100 mL 06/28/25 0500 Intake (mL) 50 mL 06/28/25 0600 Surgical Airway Shiley Cuffed 7.5 (Active) Status Secured 06/28/25 0742 Site Assessment Clean;Dry 06/28/25 1104 Site Care Dressing applied;Cleansed;Dried 06/27/25 2140 Inner Cannula Care Cleansed/dried 06/27/25 2140 Ties Assessment Intact 06/28/25 0742 Cuff Pressure (cm H2O) 32 cm H2O 06/28/25 0742 NUTRITION Diet Order: Dietary Orders (From admission, onward) Start Ordered 06/22/25 113 Diet, Tube Feeding/NPO [facility]; Jevity 1.5 James; Other (Comment); J Tube; 50; 100; Water; Other (specify); every 3 hours; NPO- No Exceptions; Tube Feed No Tray (Tube Feeding) Diet effective now Comments: -run Jevity 1.5 at 50 ml/hr. -give 100 ml water flush every 3 hours. Follow EN Algorithm Flowchart for tolerance Question Answer Comment Location: [facility] Tube feeding formula: Jevity 1.5 James Route: Other (Comment) Tube feed route comment: J Tube Tube feeding continuous rate (mL/hr): 50 Tube feeding flush (mL): 100 Tube feeding flush type: Water Tube feeding flush frequency: Other (specify) Tube feed flush comment: every 3 hours Diet NPO- No Exceptions Diet Tube Feed No Tray 06/22/25 1133 LAB RESULTS Lab Results Component Value Date WBC 3.6 (L) 06/28/2025 RBC 3.20 (L) 06/28/2025 HGB 7.0 (L) 06/28/2025 HCT 25.5 (L) 06/28/2025 MCV 78.9 (L) 06/28/2025 MCHC 27.5 (L) 06/28/2025 RDW 19.4 (H) 06/28/2025 PLT 261 06/28/2025 MPV 10.6 06/28/2025 NRBC 0.0 06/28/2025 DIFF Lab Results Component Value Date LYMPHOPCT 22.4 06/28/2025 NEUTROABS 2.66 06/28/2025 LYMPHSABS 0.81 (L) 06/28/2025 MONOABS 0.10 (L) 06/28/2025 EOSABS 0.04 06/28/2025 BASOSABS 0.00 06/28/2025 IMMGRANABS 0.01 06/28/2025 RETIC No results found for: RETIC , RETICCTPCT Lab Results Component Value Date NA 137 06/28/2025 K 4.6 06/28/2025 CL 99 06/28/2025 CO2 36 (H) 06/28/2025 GLUCOSE 97 06/28/2025 BUN 11 06/28/2025 CREATININE 0.22 (L) 06/28/2025 CALCIUM 7.9 (L) 06/28/2025 PROT 6.6 06/24/2025 ALBUMIN 2.1 (L) 06/24/2025 BILITOT 0.3 06/24/2025 AST 14 06/24/2025 ALT 9 (L) 06/24/2025 PHOS 3.4 06/28/2025 MG 2.0 06/28/2025 ALKPHOS 54 06/24/2025 EGFR 156 06/28/2025 RADIOLOGY I have reviewed the relevant diagnostic imaging MICROBIOLOGY I have reviewed the relevant microbiology ASSESSMENT & PLAN Diagnosis (ACUTE/Chronic) Plan Neuro: Anxiety Weakness Noncompliance with home MV support Myasthenia gravis Quadriplegia and quadriparesis (appears to be at baseline) Neuromyopathy syndrome Rheumatoid arthritis involving multiple sites with positive rheumatoid factor Failure to thrive in adult -Pain control: scheduled scheduled buspirone, tramadol, acetaminophen oribuprofen as needed for acute pain -Sedation/Anxiety management: Dexmeditomidine, Olanzapine, trazadone, Buspirone melatonin - Psychiatry consult report for anxiety disorder (Dr. Decker) is pending today Cardiovascular/Hematological: Chronic tachycardia Chronic arterial hypotension -target MAP > 65 mmHg - Continue metoprolol for chronic tachycardia - Continue midodrine for chronic arterial hypotension Heme: Left common femoral vein DVT (nonocclusive, chronic) Chronic anemia -transfusion trigger Hb < 7.0 g/dl -VTE prophylaxis: mechanical, LMWH - surveillance duplex US LLE PRN - Continue scheduled ferrous sulfate and folic acid Pulmonary: Acute on chronic respiratory failure with hypoxia and hypercapnia Acute Bilateral pneumonia -GNR organism, culture sensitivities pending Bilateral lung atelectasis Respiratory disorder with ventilator dependence Tracheostomy in place -Target SaO2 > 92% -VAPP bundle -Lung protective vent strategy - mechanical ventilator wean during day with TM trials and planned rest overnight for alveolar recruitment as possible -Albuterol nebs scheduled and RN -Mucomyst nebs -aggressive pulmonary toilet -Continue guaifenesin -F/U sputum cultures GI/Nutrition: Jejunostomy tube in situ Functional incontinence - Peptic Ulcer Prophylaxis: Pantoprazole - Nutrition consult for enteral protocol /Renal/Lytes: -target UO > 0.5 cc/kg/h Adjusted IBW -replace electrolytes to WNL -IUBC for hourly UO while critically ill Endocrine: Adrenal insufficiency Immunocompromise state -target BG 140-180 -SSI ICU protocol ID: Bilateral pneumonia ( R>L) -complete ceftazidime (06/24-) for Serratia &PSA PNA -assess antimicrobials, when present, daily for potential de-escalation. Social: Patient/family updated regarding patient status, response to therapy and plan of care. Skin/Wound: -Wound prevention positioning DISPOSITION: Continue ICU level of care 75 minutes of critical care time was spent in direct patient care at the bedside or in the immediate area with this patient. They are acutely ill with system failure. They are at high risk for decompensation. This time was spent assessing and managing the patient, interpreting labs and imaging, coordinating care with other medical providers, and gathering history and discussing management and prognosis with family. Araseli Morton MD * RAMONE Zhang - 06/28/2025 9:54 AM EDT Medical record reviewed informing dc considered 06-27-25 but delayed. Today, patient remains at an ICU level of care. * Jada Grissom MD - 06/27/2025 4:48 PM EDT Follow up time (mins): Critical care time (mins) : 60 Patient a quiet night. She has been changed to ceftazidime for thithe infection in her sputum. Initial plan was to discharge the patient home today however per nursing staff she has had increase in her secretion burden with the need for frequent suctioning. Family is unhappy and wishes to take her home however I do not think that her respiratory status has been managed completely. We are continuing antibiotics and mucolytic's chest PT to help get her out of better lung volume prior to discharge. The patient herself remains relatively passive but does not disagree with us in our decision to hold on her transfer for now. Physical Exam: Temp is 97 pulse is 83 respirate is 20 blood pressure 112/69 sats on a percent on trach mask Lungs have coarse rhonchi there is a fair amount of suctioning requirement per the nursing staff Cardiac's S1-S2 Abdomen is doughy and soft Extremities are flaccid and have signs of rheumatoid arthritis Follow-up ultrasound of the left lower extremity demonstrates her old DVT which now is chronic. Data: CBG is stable the patient to schedule an elevated serum bicarb creatinine is 0.17 white count is 3 hematocrit 25 last positive culture was from the sputum grew Serratia and Pseudomonas both susceptible to ceftazidime Medication: Mucomyst Lac-Hydrin BuSpar ceftazidime Peridex Colace Lovenox Pepcid iron folic acid Robitussin Ativan DuoNeb Lopressor midodrine Lyrica Mestinon tramadol trazodone Problem List: Myasthenia gravis Chronic hypercapnic respiratory failure Paraplegia Rheumatoid arthritis Depression Anxiety Hypercapnia Nocturnal ventilatory support Tachycardia Chest pain History of left leg DVT Plan: 1 continue nocturnal ventilatory support with trach collar during the daytime Robitussin ,suctioning, DuoNebs. I think over the last 6 months the patient developed CO2 retention she has atelectatic changes at both lung bases which appear to be densely collapsed ventilator management and chest PT have not really managed this or improved it. I am concerned that the patient is heading toward needing 24-hour ventilatory support. Continue fornow at the day of discharge the patient would benefit from a VBG and a chest x-ray 2 IV ceftazidime 7 days at least possible follow-up with p.o. Bactrim for few days postdischarge 3 tube feeds hold on any p.o. feeds for now 4 off steroids as it is contraindicated in myasthenia 5 continue Mestinon neuro follow-up 6 subcu heparin Patient's family was updated anticipate discharge in next 24 to 48 hours pending suction requirements Recent Results (from the past 24 hours) Central line blood gas Collection Time: 06/27/25 4:30 AM Result Value Ref Range pH Central Line 7.41 7.32 - 7.43 pCO2 Central Line 59 40 - 60 mmHg pO2 Central Line 36 30 - 55 mmHg HCO3 Central Line 33 (H) 22 - 26 mmol/L O2 Saturation, Central Line 63 % Base Excess, Central Line 11 (H) -2 - 2 mmol/L Magnesium Collection Time: 06/27/25 4:30 AM Result Value Ref Range Magnesium 2.2 1.9 - 2.6 mg/dL Basic metabolic panel Collection Time: 06/27/25 4:30 AM Result Value Ref Range Sodium 134 133 - 145 mmol/L Potassium 4.3 3.5 - 5.5 mmol/L Chloride 97 96 - 110 mmol/L CO2 34 (H) 21 - 32 mmol/L Anion Gap 3 3 - 11 Glucose 84 70 - 100 mg/dL BUN 10 5 - 25 mg/dL Creatinine 0.17 (L) 0.50 - 1.10 mg/dL eGFR 166 >=60 mL/min/1.73m2 BUN/Creatinine Ratio 58.8 Calcium 8.0 (L) 8.5 - 10.5 mg/dL Calcium, ionized Collection Time: 06/27/25 4:30 AM Result Value Ref Range Calcium Ionized 4.40 (L) 4.50 - 5.30 mg/dL CBC auto differential Collection Time: 06/27/25 4:30 AM Result Value Ref Range WBC 3.6 (L) 4.8 - 10.8 K/mcL RBC 3.30 (L) 3.80 - 4.80 M/mcL Hemoglobin 7.1 (L) 11.5 - 16.0 g/dL Hematocrit 25.7 (L) 35.0 - 47.0 % MCV 79.1 79.0 - 98.0 FL MCH 21.8 (L) 27.0 - 32.0 pcg MCHC 27.6 (L) 32.0 - 37.0 g/dL RDW 19.1 (H) 11.0 - 15.0 % Platelets 253 130 - 400 K/mcL MPV 10.0 7.0 - 11.0 FL NRBC 0.0 <1.0 % NRBC Absolute 0.00 <0.10 K/mcL Neutrophils Relative 71.1 % Lymphocytes Relative 24.6 % Monocytes Relative 3.1 % Eosinophils Relative 0.6 % Basophils Relative 0.3 % Immature Granulocytes Relative 0.3 % Neutrophils Absolute 2.54 1.50 - 7.00 K/mcL Lymphocytes Absolute 0.88 (L) 1.00 - 5.00 K/mcL Monocytes Absolute 0.11 (L) 0.20 - 1.00 K/mcL Eosinophils Absolute 0.02 0.00 - 0.50 K/mcL Basophils Absolute 0.01 0.00 - 0.20 K/mcL Immature Granulocytes Absolute 0.01 0.00 - 0.03 K/mcL XR Chest 1 View Narrative: History: Line/tube check. ICU patient. Comparison: 06/24/25, thoracic CTA 06/21/25 Findings: Portable AP semiupright chest at 5:18 AM. A tracheostomy tube remains well-positioned. A left subclavian venous catheter terminates at the level of the SVC, unchanged. The cardiac silhouette remains normal in size. Dense, confluent opacity persists in the left retrocardiac area, partially silhouetting the diaphragm, without significant change. There is hazy groundglass opacity at the right base, partially silhouetting the diaphragm, also unchanged. The pulmonary vascularity is within normal limits. Impression: Impression: 1. Satisfactory positioning of support tubes and line. 2. No significant change in left retrocardiac airspace consolidation. 3. Similar groundglass opacity at the right base, possibly a combination of pleural fluid and airspace disease. Telerad ERICK ([id number]) -------- FINAL REPORT -------- Dictated By: Elissa Reynolds Dictated Date: 06/27/2025 08:26 ET Assigned Physician: Elissa Reynolds Reviewed and Electronically Signed By: Elissa Reynolds Signed Date: 06/27/2025 08:29 ET Workstation ID: [id number] Transcribed By: Self Edit Transcribed Date: 06/27/2025 08:26 ET Current Facility-Administered Medications Medication Dose Route Frequency Provider Last Rate Last Admin acetylcysteine (MUCOMYST) 100 mg/mL (10 %) solution 400 mg 4 mL nebulization q6h Araseli Morton MD 400 mg at 06/27/25 1401 albuterol 2.5 mg /3 mL (0.083 %) nebulizer solution 2.5 mg 2.5 mg nebulization q2h PRN Edwar ERICK Stiles 2.5 mg at 06/20/25 2326 ammonium lactate (LAC-HYDRIN) 12 % lotion Topical Daily Edwar ERICK Stiles Given at 06/27/25 1029 busPIRone (BUSPAR) tablet 10 mg 10 mg oral TID Jada Grissom MD 10 mg at 06/27/25 1459 calcium carbonate-vitamin D 500 mg-5 mcg (200 unit) per tablet 2 tablet 2 tablet oral BID Edwar ERICK Stiles 2 tablet at 06/27/25 1032 cefTAZidime (FORTAZ) 2 g in sodium chloride 0.9 % 100 mL IVPB 2 g intravenous q8h JUAN MIGUEL Jada Grissom MD 200 mL/hr at 06/27/25 1615 2 g at 06/27/25 1615 chlorhexidine (PERIDEX) 0.12 % solution 15 mL 15 mL Mouth/Throat BID Edwar ERICK Stiles 15 mL at 06/26/25 2127 dextrose (D50W) 50% injection 12.5 g 12.5 g intravenous q15 min PRN Edwar ERICK Stiles dextrose (D50W) 50% injection 25 g 25 g intravenous q15 min PRN Edwar [place], [place] dextrose 15 gram/60 mL oral solution 15 g 15 g oral q15 min PRN Edwar ERICK Stiles dextrose 15 gram/60 mL oral solution 30 g 30 g oral q15 min PRN Edwar Angeles PA docusate (COLACE) liquid 200 mg 200 mg oral Daily Edwar Angeles PA 200 mg at 06/24/25 0905 enoxaparin (LOVENOX) injection 40 mg 40 mg subcutaneous q24h JUAN MIGUEL Edwar Angeles PA 40 mg at 06/27/25 1033 famotidine (PEPCID) 8 mg/mL suspension 20 mg 20 mg oral BID Edwar Angeles PA 20 mg at 06/27/25 1034 ferrous sulfate 300 mg (60 mg elemental iron)/5 mL liquid 300 mg 300 mg oral BID Edwar Angeles PA 300 mg at 06/27/25 1034 folic acid (FOLVITE) tablet 1 mg 1 mg oral Daily Edwar ERICK Stiles 1 mg at 06/27/25 1034 Glucagon HCl (rDNA) injection 1 mg 1 mg intramuscular Once PRN Edwar ERICK Stiles guaiFENesin (ROBITUSSIN) 100 mg/5 mL liquid 200 mg 200 mg oral q6h Jada Grissom MD 200 mg at 06/27/25 1459 guaiFENesin (ROBITUSSIN) 100 mg/5 mL liquid 600 mg 600 mg oral TID PRN ERICK Cerda 600 mg at 06/21/25 0837 ipratropium-albuteroL (DUONEB) 0.5-2.5 mg/3 mL nebulizer solution 3 mL 3 mL nebulization q6h Edwar [place], PA 3 mL at 06/27/25 1401 LORazepam (ATIVAN) injection 2 mg 2 mg intravenous Once Edwar ERICK Stiles magnesium oxide (MAG-OX) tablet 600 mg 600 mg oral TID Edwar Angeles PA 600 mg at 06/27/25 1459 melatonin tablet 3 mg 3 mg oral Nightly PRN ERICK Cerda 3 mg at 06/22/25 205 metoprolol tartrate (LOPRESSOR) tablet 12.5 mg 12.5 mg oral q8h Edwar Angeles PA 12.5 mg at 500 midodrine (PROAMATINE) tablet 10 mg 10 mg oral q8h Edwar Angeles PA 10 mg at 06/27/25 1500 pregabalin (LYRICA) capsule 75 mg 75 mg j-tube BID Jada Grissom MD 75 mg at 06/27/25 1035 pyRIDostigmine (MESTINON) tablet 30 mg 30 mg oral 4x daily Edwar ERICK Stiles 30 mg at 06/27/25 1615 sodium chloride 0.9 % infusion 42 mL/hr intravenous PRN Edwar ERICK Stiles traMADoL (ULTRAM) tablet 50 mg 50 mg oral q4h Edwar ERICK Stiles 50 mg at 06/27/25 1500 traZODone (DESYREL) tablet 50 mg 50 mg oral Nightly Edwar ERICK Stiles 50 mg at 06/26/257 Jada Grissom MD * Mandie Goodman RRT - 06/27/2025 2:44 PM EDT Patient placed on TM 40% at first rounds, and currently stayed on TM all day, faisal. Well. Pt. Presented with moderate to small amounts of secretions. Vent to us NOC as faisal. * Evangelina Allred RD - 06/27/2025 11:19 AM EDT 06/27/2025 @ 11:19 AM EDT Nutrition Follow Up Note Reason for RD Intervention: Assessment Type: Follow-up Reason for Assessment: Tube Feeding Additional Assessment Information: J Tube Anthropometrics: Height: 165.1 cm (65 ) Weight: 77.4 kg (170 lb 10.2 oz) BMI (Calculated): 28.4 BMI Class: Overweight IBW (lbs): 125 Recent Weight Change: Yes Other (Comment): weight in pounds: 170 06/21/25 bed scale, 184 06/13/25, 192 06/03, 147 02/01, 166 02/01 and 11/02, 155 09/02, 157 08/03 and 06/02 Current Diet and Supplements: Dietary Orders (From admission, onward) Start Ordered 06/22/25 1133 Diet, Tube Feeding/NPO [facility]; Jevity 1.5 James; Other (Comment); J Tube; 50; 100; Water; Other (specify); every 3 hours; NPO- No Exceptions; Tube Feed No Tray (Tube Feeding) Diet effective now Comments: -run Jevity 1.5 at 50 ml/hr. -give 100 ml water flush every 3 hours. Follow EN Algorithm Flowchart for tolerance Question Answer Comment Location: [facility] Tube feeding formula: Jevity 1.5 James Route: Other (Comment) Tube feed route comment: J Tube Tube feeding continuous rate (mL/hr): 50 Tube feeding flush (mL): 100 Tube feeding flush type: Water Tube feeding flush frequency: Other (specify) Tube feed flush comment: every 3 hours Diet NPO- No Exceptions Diet Tube Feed No Tray 06/22/25 1133 History of presenting illness: Patient is a 30 y.o. female with a history of Past Medical History: Diagnosis Date Gastrointestinal tube present (CMS/HCC V24, CMS/HCC V28) Myasthenia gravis (CMS/HCC V24, CMS/HCC V28) Tracheostomy dependent (CMS/HCC V24, CMS/HCC V28) Past Surgical History: Procedure Laterality Date IR PERCUTANEOUS JEJUNOSTOMY TUBE PLACEMENT Left TRACHEOSTOMY TUBE PLACEMENT admitted 06/20/2025 with Acute on chronic respiratory failure (CMS/HCC V24, CMS/HCC V28). Food/Nutrition History: Previously prescribed diets: Enteral nutrition order Tube Feeding Formula/Solution: Jevity 1.5 5 cartons per day over a 16 hours, one syringe water flush (60 ml) every 4 hours feeds are running, at the start and stop of tube feed cycle, and with meds throughout the day. to provide: 1775 caloires, 76 g protein, 900 ml free water from tune feeds plus water flushes. Self-selected diet(s) followed: NPO Weight History: Wt Readings from Last 10 Encounters: 06/21/25 77.4 kg (170 lb 10.2 oz) 06/13/25 83.5 kg (184 lb 1.4 oz) 05/19/25 87.1 kg (192 lb) 01/29/25 66.7 kg (147 lb) 01/25/25 75.3 kg (166 lb) 01/19/25 75.3 kg (166 lb) 10/30/24 75.3 kg (166 lb) 09/09/24 65.4 kg (144 lb 2.9 oz) 07/20/24 71.2 kg (157 lb) 05/18/24 71.2 kg (157 lb) Subjective Assessment: Pt tolerating tube feeds at goal rate via J tube. Last BM 06/24. Bed scale weights in k.4 06/21,74.3 06/20 Nutrition-Related Lab Values: Results from last 7 days Lab Units 06/27/25 0430 06/26/25 0430 06/25/25 0432 06/24/25 0352 SODIUM mmol/L 134 133 < > 135 POTASSIUM mmol/L 4.3 4.6 < > 4.5 PHOSPHORUS mg/dL -- 3.8 < > 2.8 MAGNESIUM mg/dL 2.2 1.9 < > 1.9 CHLORIDE mmol/L 97 96 < > 99 CO2 mmol/L 34* 36* < > 35* BUN mg/dL 10 11 < > 10 CREATININE mg/dL 0.17* <0.15* < > 0.18* EGFR mL/min/1.73m2 166 -- < > 164 CALCIUM mg/dL 8.0* 8.1* < > 8.2* BILIRUBIN TOTAL mg/dL -- -- -- 0.3 ALK PHOS unit/L -- -- -- 54 ALT unit/L -- -- -- 9* AST unit/L -- -- -- 14 GLUCOSE mg/dL 84 83 < > 86 WBC AUTO K/mcL 3.6* 3.4* < > 3.6* < > = values in this interval not displayed. Lab Results Component Value Date LIPASE 13 05/29/2025 Medications: acetylcysteine, 4 mL, nebulization, q6h ammonium lactate, , Topical, Daily busPIRone, 10 mg, oral, TID calcium carbonate-vitamin D, 2 tablet, oral, BID cefTAZidime, 2 g, intravenous, q8h JUAN MIGUEL chlorhexidine, 15 mL, Mouth/Throat, BID docusate, 200 mg, oral, Daily enoxaparin, 40 mg, subcutaneous, q24h JUAN MIGUEL famotidine, 20 mg, oral, BID ferrous sulfate, 300 mg, oral, BID folic acid, 1 mg, oral, Daily guaiFENesin, 200 mg, oral, q6h ipratropium-albuteroL, 3 mL, nebulization, q6h LORazepam, 2 mg, intravenous, Once magnesium oxide, 600 mg, oral, TID metoprolol tartrate, 12.5 mg, oral, q8h midodrine, 10 mg, oral, q8h pregabalin, 75 mg, j-tube, BID pyRIDostigmine, 30 mg, oral, 4x daily traMADoL, 50 mg, oral, q4h traZODone, 50 mg, oral, Nightly CONTINUOUS: PRN medications: albuterol, dextrose 50%, dextrose 50%, dextrose, dextrose, glucagon injection, guaiFENesin, melatonin, sodium chloride Energy Needs: kcal, gm protein, mL fluid per day. Total Energy Estimated Needs: based on adjusted weight for quadraplegia [id number] calories (20-25 james/kg), 66-99 g protein (1-1.5 g/kg), fluid as per pension manager Height: 165.1 cm (65 ) Minute Ventilation (L/min): 5.6 L/min Temp: 36.1 ??C (96.9 ??F) Food/Nutrition-Current Status: Intake Type: Enteral Kcal: 1620 Protein (gm): 69 Free Water (mL): 821 Water Flushes: 100 q 3 hours % RDI: 96 Current Diet Status: Appropriate (NPO) Appetite: Other (Comment) (NPO) Intake Amount (%): Other (Comment) (NPO) Intake Assessment: Adequate Main IVF: None Propofol?: No Nutrition Focused Physical Findings: Overall Appearance: pt lying in bed Digestive System (Mouth to Rectum): Swallowing difficulty Skin: right foot, right ankle pressure injures Fluid Accumulation/Edema: +1 (per EPIC charting) Nutrition Diagnosis: Code Type: None Identified Status: No improvement (pt working with WATCH COMMANDER to strengthen swallow muscles, is fearful about PO trials) Diagnosis: Swallowing Difficulty Etiology: Physiologic causes Symptoms: as evidenced by chronic J tube feeds Nutrition Interventions: Enteral Nutrition Collaboration and Referral of Nutrition Care: Collaborate with Other Providers Enteral Nutrition: Access Type: J-tube Formula: Jevity 1.5 James Feeding Type: Continuous Goal Rate: 55 Water Flush: 100 mL Water Flush Frequency: (q 3 hours) To provide at 90% delivery: 1620 calories (25/kg), 69 g protein (1 g/kg), 1621 ml free water (25 ml/kg- 821 via tube feeds, 800 via flushes) Goals: EN: Patient tolerating goal TF. , Monitor/control glucose levels, Improvement in LFTs., Improvementin renal labs., Electrolytes within normal range., Maintain weight., Fluid accumulation resolved., Stooling appropriately., and Wound healing progress. Coordination of Patient Care: Verbal discussion with RN., Verbal discussion with provider., and Patient discussed during ICU rounds and nutrition plan of care updated accordingly. Monitoring/Evaluation: Enteral Nutrition Intake, Weight, Renal/Electrolyte Profile, Gastrointestinal Profile Follow Up: Nutrition Priority Level: High Nutritional Discharge Recommendations: Additional Information: recommend patient return to previous home tube feed regemin with [facility] RD remains available and will continue to follow. Signature: Evangelina Allred RD * America Mckee RN - 06/27/2025 8:53 AM EDT 06/27/25 0853 Initial Transition Plan Initial Transition Plan Home Health Care ANGELIKA unknown Barrier to discharge: increased secretions Dispo; home with services fro [facility]. * Jada Grissom MD - 06/26/2025 1:57 PM EDT Follow up time (mins): Critical care time (mins) : 60 Seen and examined. She had a quiet night. She is on the vent at night and off in the daytime. Nursing staff reports increasing secretions. The patient is asking about follow-up of her left leg ultrasound. About a week ago she had a nonocclusive DVT on the left common femoral we will followed up today with an ultrasound Physical Exam: Temp is 97.9 pulse is 107 respirate is 24 blood pressure is 106/65 sats 97% on trach collar The patient continues to lie flat she has been resistant to being sat up or to be mobilized into her chair she is definitely in a disadvantageous orientation for her respiratory status Cardiac's S1-S2 Abdomen is soft she has some leakage around her J-tube the dressing is currently clean and dry Extremities have swan-neck deformities she is essentially paraplegic Data: Creatinine is 0.15 white count is 3 hematocrit is 26 platelets are 252 CBG is stable serum bicarb is 36 Medication: Mucomyst [place]dr[place] BuSpar calcium Fortaz Peridex Colace Lovenox Pepcid iron folic acidDuoNeb Ativan magnesium Lopressor midodrine tramadol trazodone Mestinon Problem List: Myasthenia gravis Chronic hypercapnic respiratory failure Paraplegia Rheumatoid arthritis Depression Anxiety Hypercapnia Nocturnal ventilatory support Tachycardia Chest pain Plan: 1 patient nonocclusive left thrombus in the common femoral we are following that up she is on routine DVT prophylaxis she tolerates Lovenox daily HTZ enough to make changes if she is required anticoagulation she has no absolute contraindication 2 continue tube feeds. Patient has had a lot of anxiety around p.o. feeds were holding on that for now 3 on ceftazidime for germain in her sputum 4 no steroids secondary to exacerbating myasthenia gravis Continue Mestinon What we have observed over the last few months that the patient is breathing at a lower lung volumeshe has got chronic hypercapnia now however she is oxygenating reasonably well and is not really worse however it is concerning to me that she is weak and may ultimately require 24-hour day support Her family does have a ventilator at home 5 tachycardia stable Started on Lyrica and increased BuSpar to treat anxiety as well as her hand pain 6 planning on discharge in the next 24 to 48 hours Recent Results (from the past 24 hours) Basic metabolic panel Collection Time: 06/26/25 4:30 AM Result Value Ref Range Sodium 133 133 - 145 mmol/L Potassium 4.6 3.5 - 5.5 mmol/L Chloride 96 96 - 110 mmol/L CO2 36 (H) 21 - 32 mmol/L Anion Gap 1 (L) 3 - 11 Glucose 83 70 - 100 mg/dL BUN 11 5 - 25 mg/dL Creatinine <0.15 (L) 0.50 - 1.10 mg/dL eGFR BUN/Creatinine Ratio Calcium 8.1 (L) 8.5 - 10.5 mg/dL Magnesium Collection Time: 06/26/25 4:30 AM Result Value Ref Range Magnesium 1.9 1.9 - 2.6 mg/dL Phosphorus Collection Time: 06/26/25 4:30 AM Result Value Ref Range Phosphorus 3.8 2.5 - 4.5 mg/dL Calcium, ionized Collection Time: 06/26/25 4:30 AM Result Value Ref Range Calcium Ionized 4.42 (L) 4.50 - 5.30 mg/dL CBC auto differential Collection Time: 06/26/25 4:30 AM Result Value Ref Range WBC 3.4 (L) 4.8 - 10.8 K/mcL RBC 3.30 (L) 3.80 - 4.80 M/mcL Hemoglobin 7.2 (L) 11.5 - 16.0 g/dL Hematocrit 26.1 (L) 35.0 - 47.0 % MCV 78.9 (L) 79.0 - 98.0 FL MCH 21.8 (L) 27.0 - 32.0 pcg MCHC 27.6 (L) 32.0 - 37.0 g/dL RDW 19.3 (H) 11.0 - 15.0 % Platelets 252 130 - 400 K/mcL MPV 10.5 7.0 - 11.0 FL NRBC 0.0 <1.0 % NRBC Absolute 0.00 <0.10 K/mcL Central line blood gas Collection Time: 06/26/25 4:30 AM Result Value Ref Range pH Central Line 7.38 7.32 - 7.43 pCO2 Central Line 60 40 - 60 mmHg pO2 Central Line 47 30 - 55 mmHg HCO3 Central Line 32 (H) 22 - 26 mmol/L O2 Saturation, Central Line 80 % Base Excess, Central Line 9 (H) -2 - 2 mmol/L Manual differential Collection Time: 06/26/25 4:30 AM Result Value Ref Range Neutrophils % 73.0 % Bands % 1.0 % Lymphocytes % 21.0 % Monocytes % 4.0 % Eosinophils % 0.0 % Basophils % 1.0 % Neutrophils Absolute Manual 2.48 1.50 - 7.00 K/mcL Bands Absolute Manual 0.03 (H) 0.00 - 0.00 K/mcL Lymphocytes Absolute 0.71 (L) 1.00 - 5.00 K/mcL Monocytes Absolute Manual 0.14 (L) 0.20 - 1.00 K/mcL Eosinophils Absolute Manual 0.00 0.00 - 0.50 K/mcL Basophils Absolute Manual 0.03 0.00 - 0.20 K/mcL Rbc Morphology Present (A) Consistent with indices, Normal for Platelet Morphology - WAM See Note (A) Normal Polychromasia Present Present (A) (none) Ovalocytes Present 5 - 10% (A) (none) XR Chest 1 View Narrative: PROCEDURE: AP chest radiograph. HISTORY: Pneumonia. COMPARISON: 06/23/2025. FINDINGS: Unchanged support apparatus. Stable elevation of the right hemidiaphragm. Patchy right basilar opacity suggestive of atelectasis is also unchanged. There is no pneumothorax, pleural effusion, or pulmonary edema. Cardiomediastinal contours are stable. There is a stable thoracic dextroscoliosis. Milddegenerative changes of the spine. Impression: Unchanged appearance of the chest. -------- FINAL REPORT -------- Dictated By: Robert Richardson Dictated Date: 06/24/2025 08:13 ET Assigned Physician: Robert Richardson Reviewed and Electronically Signed By: Robert Richardson Signed Date: 06/24/2025 08:14 ET Workstation ID: [id number] Transcribed By: Self Edit Transcribed Date: 06/24/2025 08:13 ET Current Facility-Administered Medications Medication Dose Route Frequency Provider Last Rate Last Admin acetylcysteine (MUCOMYST) 100 mg/mL (10 %) solution 400 mg 4 mL nebulization q6h Araseli Morton MD 400 mg at 06/26/25 0759 albuterol 2.5 mg /3 mL (0.083 %) nebulizer solution 2.5 mg 2.5 mg nebulization q2h PRN EdwarERICK Thakkar 2.5 mg at 06/20/25 2326 ammonium lactate (LAC-HYDRIN) 12 % lotion Topical Daily ERICK Cerda Given at 06/26/25 1151 busPIRone (BUSPAR) tablet 10 mg 10 mg oral TID Jada Grissom MD 10 mg at 06/26/25 1015 calcium carbonate-vitamin D 500 mg-5 mcg (200 unit) per tablet 2 tablet 2 tablet oral BID ERICK Cerda 2 tablet at 06/26/25 1015 cefTAZidime (FORTAZ) 1 g in sodium chloride 0.9 % 100 mL IVPB 1 g intravenous q8h [facility] Jada Grissom MD Stopped at 06/26/25 1147 chlorhexidine (PERIDEX) 0.12 % solution 15 mL 15 mL Mouth/Throat BID Edwar ERICK Stiles 15 mL at 06/24/25 0905 [Held by provider] dexmedeTOMIDine (PRECEDEX) 200 mcg in sodium chloride 0.9 % 50 mL (4 mcg/mL) infusion 0.2-1.5 mcg/kg/hr intravenous Continuous Edwar ERICK Stiles Stopped at 06/21/25 1300 dextrose (D50W) 50% injection 12.5 g 12.5 g intravenous q15 min PRN Edwar ERICK Stiles dextrose (D50W) 50% injection 25 g 25 g intravenous q15 min PRN Edwar ERICK Stiles dextrose 15 gram/60 mL oral solution 15 g 15 g oral q15 min PRN Edwar ERICK Stiles dextrose 15 gram/60 mL oral solution 30 g 30 g oral q15 min PRN Edwar ERICK Stiles docusate (COLACE) liquid 200 mg 200 mg oral Daily Edwar ERICK Stiles 200 mg at 06/24/25 0905 enoxaparin (LOVENOX) injection 40 mg 40 mg subcutaneous q24h [facility] Edwar ERICK Stiles 40 mg at 06/26/25 1015 famotidine (PEPCID) 8 mg/mL suspension 20 mg 20 mg oral BID Edwar ERICK Stiles 20 mg at 06/26/25 1151 ferrous sulfate 300 mg (60 mg elemental iron)/5 mL liquid 300 mg 300 mg oral BID Edwar ERICK Stiles 300 mg at 06/26/25 1015 folic acid (FOLVITE) tablet 1 mg 1 mg oral Daily Edwar ERICK Stiles 1 mg at 06/26/25 1015 Glucagon HCl (rDNA) injection 1 mg 1 mg intramuscular Once PRN Edwar ERICK Stiles guaiFENesin (ROBITUSSIN) 100 mg/5 mL liquid 600 mg 600 mg oral TID PRN Edwar ERICK Stiles 600 mg at 06/21/25 0837 ipratropium-albuteroL (DUONEB) 0.5-2.5 mg/3 mL nebulizer solution 3 mL 3 mL nebulization q6h Edwar ERICK Stiles 3 mL at 06/26/25 0759 LORazepam (ATIVAN) injection 2 mg 2 mg intravenous Once Edwar ERICK Stiles magnesium oxide (MAG-OX) tablet 600 mg 600 mg oral TID Edwar ERICK Stiles 600 mg at 06/26/25 1015 melatonin tablet 3 mg 3 mg oral Nightly PRN EdwarERICK Thakkar 3 mg at 06/22/252055 metoprolol tartrate (LOPRESSOR) tablet 12.5 mg 12.5 mg oral q8h Edwar [place], [place] 12.5 mg at 249 midodrine (PROAMATINE) tablet 10 mg 10 mg oral q8h Edwar Angeles PA 10 mg at 06/26/25 0640 pregabalin (LYRICA) capsule 75 mg 75 mg j-tube BID Jada Grissom MD 75 mg at 06/26/25 1015 pyRIDostigmine (MESTINON) tablet 30 mg 30 mg oral 4x daily Edwar ERICK Stiles 30 mg at 06/26/25 1015 sodium chloride 0.9 % infusion 42 mL/hr intravenous PRN Edwar ERICK Stiles traMADoL (ULTRAM) tablet 50 mg 50 mg oral q4h Edwar ERICK Stiles 50 mg at 06/26/25 1015 traZODone (DESYREL) tablet 50 mg 50 mg oral Nightly Edwar ERICK Stiles 50 mg at 06/25/252125 Jada Grissom MD * Sandra Bragg MD - 06/25/2025 12:00 PM EDT ICU COURSE ANGELES/THOMAS 06/20: ICU ADMIT. ICU consulted by Dr. Ronnie Sierra for evaulation of 30 yof, well known to this ICUwith hx of MG, paraplegia, chronic trach and PEG, nocturnal vent dependence, presenting with SOB and CP starting today. She was recently discharged from this ICU on 06/16 after being admitted for multifocal pneumonia and completing course of abx. Today her family reports she developed SOB this afternoon while on trach collar and refused to go back on the vent, later developing worsening SOB and anxiety. ED workup showing sinus tachycardia in the 150s, tachypnea in the 30-40s, BP stable, O2 sat 90s on trach collar, febrile to 100.3. Lab work showing WBC 11, VBG 7.37/69/33, lactate 0.8, trop 12, BNP 93, mag 1.8. UA negative. CXR showing haziness in RLL appears similar to prior, trach in good position. CTA ordered and pending. Deep suctioning was performed and pt placed on vent setting, able to generate tidal volumes in the 400s. HR improved to 140s after ativan 1mg. After discussion with family member at bedside using robotic machine tender production, decision was made to admit pt to ICU for further management of acute on chronic respiratory failure in setting of hospital-acquired PNA vs mucus plugging vs PE vs severe anxiety. [facility] 06/21: Transfer of care received from [facility] Edwar Angeles, PAC. Overnight events and EMR reviewed. Patient examined and discussed with ICU bedside nurse and ICU multidisciplinary team on AM rounds. Overnight and AM noteable events include: No new clinical events overnight AVSS Comfortable and relaxed on dexmedetomidine infusion Minimal tracheal secretions sputum cultures pending [facility] 06/[facility]: Transfer of care received from [facility] Edwar Angeles, PAC. Overnight events and EMR reviewed. Patient examined and discussed with ICU bedside nurse and ICU multidisciplinary team on AM rounds. Overnight and AM noteable events include: No new clinical events overnight AVSS AM labs and VBG are unremarkable except for Hb 6.8 from 7.7 in the clinical setting of 2 L positivefluid balance since admission without evidence of active blood loss ( likely dilutional anemia on anemia of chronic disease. Admission sputum cultures are remarkable for preliminarily positive for gram- negative bacilli Admission blood cultures are preliminarily no growth to date Patient will remain on current antimicrobials regimen with Zosyn and minocycline (for stenotrophomonas) until cultures/sensitivities are final. [facility] 06/23: See note 06/24: See note Increasing secretion requiring frequent suctioning. Antibiotic changed over to cefepime. Increased anxiety BuSpar increased Lyrica added. [facility] 06/25: [facility] [place], [facility], no event overnight. Patient remain off the vent, still significant amount of secretion. OBJECTIVE: Visit Vitals BP 105/66 Pulse 103 Temp 36.4 ??C (97.6 ??F) (Temporal) Resp 24 GEN: NARD HEENT: anicteric sclera Cardiac: RR Lungs: Diminished breath sound few rhonchi ABD: soft, NT, ND, good BS Ext: no c/c/e Neuro: Awake, alert, follows simple commands. HEMATOLOGY Lab Results Component Value Date WBC 2.9 (L) 06/25/2025 HGB 7.2 (L) 06/25/2025 HCT 25.6 (L) 06/25/2025 MCV 79.3 06/25/2025 PLT 232 06/25/2025 INR 1.1 06/20/2025 CHEMISTRY Lab Results Component Value Date GLUCOSE 78 06/25/2025 NA 136 06/25/2025 K 4.5 06/25/2025 CO2 36 (H) 06/25/2025 CL 98 06/25/2025 BUN 10 06/25/2025 CREATININE 0.27 (L) 06/25/2025 EGFR 148 06/25/2025 CALCIUM 8.2 (L) 06/25/2025 MG 2.0 06/25/2025 PHOS 3.3 06/25/2025 ANIONGAP 2 (L) 06/25/2025 ASSESSMENT AND PLAN: 30-year-old female h/o chronic respiratory failure w/ tracheostomy nighttime ventilator dependent, multiple hospitalizations for tracheobronchitis/pneumonia (stenotrophomonas, Pseudomonas, Serratia, & Proteus), chronic aspiration, myasthenia gravis (bed bound), paraplegia, and J-tube feeding. Last hospitalization, 05/27 to 06/16/2025 for acute on chronic respiratory failure due to mucous plugging & tracheobronchitis/pneumonia. Readmitted 06/20/2025 for acute on chronic hypoxemic respiratoryfailure, due to mucous plugging and bilateral pneumonia, Neurological: h/o myasthenia gravis & anxiety. -Required IV Precedex briefly (06/20 to 06/23/2025 - Continue current Mestinon - Continue current BuSpar, Zyprexa. - Continue current Lyrica & Ultram. - Required IV Precedex briefly. Cardiology: Arrhythmia - Continue current low-dose metoprolol 12.5 mg every 8 hours. - Continue current management 10 mg every 8. Pulmonary: Acute on chronic hypercapnic hypoxemic respiratory failure s/p tracheostomy. - Continue with VAP bundle. - Continue current twghyn-neb-kiazb Mucomyst & ahkach-nbp-ewisn DuoNeb. Gastrointestinal: No active issue. Nephrology: No active issue. - Continue to monitor BMP and electrolyte replace accordingly Infectious disease: Tracheobronchitis/pneumonia h/o recurrent respiratory infection w/ stenotrophomonas, Pseudomonas, Serratia, & Proteus - s/p IV Unasyn (06/21 to 06/24/2025). S/p IV minocycline (06/21 to 06/24/2025. S/p IV vancomycin (06/20to 06/21/2025) -Continue current Fortaz (started 06/24/2025) Endocrinology: - Continue current fingerstick + scale coverage. Prophylaxis: - Continue current Lovenox for DVT prevention. CODE STATUS: Full. Social: Unable to reach family. Will try again later. This chart was generated by the [employer] ([employer]) system and [employer] speech recognition software and may contain inherent errors or omissions not intended by the user. Grammatical errors, random word insertions, deletions, pronoun errors and incomplete sentences are occasional consequences of this technologydue to software limitations. Not all errors are caught or corrected. If there are questions or concerns about the content of this note or information contained within the body of this dictation they should be addressed directly with the author for clarification. * Unique Kam RD - 06/24/2025 3:19 PM EDT 06/24/2025 @ 3:19 PM EDT Nutrition Follow Up Note Reason for RD Intervention: Assessment Type: Follow-up Reason for Assessment: Tube Feeding Additional Assessment Information: J Tube Anthropometrics: Height: 165.1 cm (65 ) Weight: 77.4 kg (170 lb 10.2 oz) BMI (Calculated): 28.4 BMI Class: Overweight IBW (lbs): 125 Recent Weight Change: Yes Other (Comment): weight in pounds: 170 06/21/25 bed scale, 184 06/13/25, 192 06/03, 147 02/01, 166 02/01 and 11/02, 155 09/02, 157 08/03 and 06/02 Current Diet and Supplements: Dietary Orders (From admission, onward) Start Ordered 06/22/25 1133 Diet, Tube Feeding/N[facility]; Other (Comment); J Tube; 50; 100; Water; Other (specify); every 3 hours; NPO- No Exceptions; Tube Feed No Tray (Tube Feeding) Diet effective now Comments: -run Jevity 1.5 at 50 ml/hr. -give 100 ml water flush every 3 hours. Follow EN Algorithm Flowchart for tolerance Question Answer Comment Location: [facility] Tube feeding formula: Jevity 1.5 James Route: Other (Comment) Tube feed route comment: J Tube Tube feeding continuous rate (mL/hr): 50 Tube feeding flush (mL): 100 Tube feeding flush type: Water Tube feeding flush frequency: Other (specify) Tube feed flush comment: every 3 hours Diet NPO- No Exceptions Diet Tube Feed No Tray 06/22/25 1133 Food/Nutrition History: Previously prescribed diets: Enteral nutrition order Tube Feeding Formula/Solution: Jevity 1.5 5 cartons per day over a 16 hours, one syringe water flush (60 ml) every 4 hours feeds are running, at the start and stop of tube feed cycle, and with meds throughout the day. to provide: 1775 caloires, 76 g protein, 900 ml free water from tune feeds plus water flushes. Self-selected diet(s) followed: NPO Social Influencers of Health & Nutrition - Hunger Vital Signs: Within the past 12 months we worried whether our food would run out before we got money to buy more: Unable to respond Within the past 12 months the food we bought just didn't last and we didn't have money to get more: Unable to respond Who obtained answers? Unable to complete at this time. Assistance: Unable to determine at this time Weight History: Wt Readings from Last 10 Encounters: 06/21/25 77.4 kg (170 lb 10.2 oz) 06/13/25 83.5 kg (184 lb 1.4 oz) 05/19/25 87.1 kg (192 lb) 01/29/25 66.7 kg (147 lb) 01/25/25 75.3 kg (166 lb) 01/19/25 75.3 kg (166 lb) 10/30/24 75.3 kg (166 lb) 09/09/24 65.4 kg (144 lb 2.9 oz) 07/20/24 71.2 kg (157 lb) 07/09/24 71.2 kg (157 lb) Subjective Assessment: Patient tolerating feeds at goal. Passed loose BM today. Initially planned for possible discharge but patient desaturating. Nutrition-Related Lab Values: Results from last 7 days Lab Units 06/24/25 0352 SODIUM mmol/L 135 POTASSIUM mmol/L 4.5 PHOSPHORUS mg/dL 2.8 MAGNESIUM mg/dL 1.9 CHLORIDE mmol/L 99 CO2 mmol/L 35* BUN mg/dL 10 CREATININE mg/dL 0.18* EGFR mL/min/1.73m2 164 CALCIUM mg/dL 8.2* BILIRUBIN TOTAL mg/dL 0.3 ALK PHOS unit/L 54 ALT unit/L 9* AST unit/L 14 GLUCOSE mg/dL 86 WBC AUTO K/mcL 3.6* Lab Results Component Value Date LIPASE 13 05/29/2025 Medications: acetylcysteine, 4 mL, nebulization, q6h ammonium lactate, , Topical, Daily busPIRone, 10 mg, oral, TID calcium carbonate-vitamin D, 2 tablet, oral, BID cefTAZidime, 1 g, intravenous, q8h JUAN MIGUEL chlorhexidine, 15 mL, Mouth/Throat, BID docusate, 200 mg, oral, Daily enoxaparin, 40 mg, subcutaneous, q24h JUAN MIGUEL famotidine, 20 mg, oral, BID ferrous sulfate, 300 mg, oral, BID folic acid, 1 mg, oral, Daily insulin lispro, 2-12 Units, subcutaneous, q6h ipratropium-albuteroL, 3 mL, nebulization, q6h LORazepam, 2 mg, intravenous, Once magnesium oxide, 600 mg, oral, TID metoprolol tartrate, 12.5 mg, oral, q8h midodrine, 10 mg, oral, q8h pregabalin, 75 mg, j-tube, BID pyRIDostigmine, 30 mg, oral, 4x daily traMADoL, 50 mg, oral, q4h traZODone, 50 mg, oral, Nightly CONTINUOUS: [Held by provider] dexmedeTOMIDine (PRECEDEX) infusion, 0.2-1.5 mcg/kg/hr, Last Rate: Stopped (06/21/25 1300) PRN medications: albuterol, dextrose 50%, dextrose 50%, dextrose, dextrose, glucagon injection, guaiFENesin, melatonin, sodium chloride Energy Needs: kcal, gm protein, mL fluid per day. Total Energy Estimated Needs: based on adjusted weight for quadraplegia [id number] calories (20-25 james/kg), 66-99 g protein (1-1.5 g/kg), fluid as per pension manager Height: 165.1 cm (65 ) Minute Ventilation (L/min): 5.7 L/min Temp: 36.8 ??C (98.2 ??F) Food/Nutrition-Current Status: Intake Type: Enteral Kcal: 1620 Protein (gm): 69 Free Water (mL): 821 Water Flushes: 100 q 3 hours % RDI: 96 Current Diet Status: Appropriate (NPO) Appetite: Other (Comment) (NPO) Intake Amount (%): Other (Comment) (NPO) Intake Assessment: Adequate Main IVF: None Propofol?: No Nutrition Focused Physical Findings: Overall Appearance: staff in with patient, unable to assess Digestive System (Mouth to Rectum): Swallowing difficulty Skin: right foot, right ankle pressure injures Nutrition Diagnosis: Code Type: None Identified Status: Other (Comment) (ongoing) Diagnosis: Swallowing Difficulty Etiology: Physiologic causes Symptoms: as evidenced by chronic J tube feeds Nutrition Interventions: Enteral Nutrition Collaboration and Referral of Nutrition Care: Collaborate with Other Providers Enteral Nutrition: Access Type: J-tube Formula: Jevity 1.5 James Feeding Type: Continuous Goal Rate: 55 Water Flush: 100 mL Water Flush Frequency: (q 3 hours) Provides 1800 kcal (23 kcal/kg) 77 g protein (1 g/kg) 1712 ml water (22 ml/kg) Nutrition Education Education Materials Reviewed:Follow for need. Goals: EN: Patient tolerating goal TF. , Electrolytes within normal range., Maintain weight., Stooling appropriately., and Maintain skin integrity. Coordination of Patient Care: Verbal discussion with RN., Verbal discussion with provider., and TF order adjusted per discussion w/provider during ICU rounds. Monitoring/Evaluation: Enteral Nutrition Intake, Weight, Renal/Electrolyte Profile, Gastrointestinal Profile Follow Up: Nutrition Priority Level: High Nutritional Discharge Recommendations: RD remains available and will continue to follow. Signature: Unique Kam RD * Jada Grissom MD - 06/24/2025 1:29 PM EDT Follow up time (mins): Critical care time (mins) : 60 The patient a quiet night. Initially we made plans for transfer home today however the patient has had increasing suction requirements and episodes of desaturation and some modest diaphoresis her oxygenation is not quite as good today. To be on the safe side, we are going to hold her up here in theICU for another day or 2. Will change antibiotics today based on culture results. We are starting ceftazidime. Yesterday we increased BuSpar and added Lyrica Her stenotrophomonas has been treated she continues with Serratia and Pseudomonas. She is to some degree colonized but intermittently has worsening symptoms superimposed on her baseline colonization. Yesterday we were able to speak I think she has a reasonable home environment the patient was articulate using a touch pad she is concerned about her pneumonia but she is interested and excited to gohome Physical Exam: Temp is 98.2 pulse is 114 respiratory rate is 26 blood pressure is 106/67 sat is 92% on 8 L trach mask Lungs are rhonchorous with some upper airway sounds today Cardiac is S1-S2 Abdomen is soft there is some leakage around her J-tube Extremities have no edema and are unchanged Data: CBG is okay bicarb is 35 creatinine is 0.18 white count is 3.6 hematocrit 26 platelets are 229 Medication: Mucomyst Lac-Hydrin BuSpar Fortaz Peridex Colace Lovenox Pepcid iron folic acid DuoNeb Ativan Lopressor midodrine Lyrica Mestinon Ultram does not well sputum culture has Pseudomonas and Serratia Problem List: Myasthenia gravis Chronic hypercapnic respiratory failure Trach and PEG Rheumatoid arthritis Nocturnal ventilatory support Neuromuscular weakness Anxiety Tachycardia Chest pain Plan: 1 start ceftazidime for polymicrobial germain in the sputum Pulmonary toilet trach collar in the daytime ventilatory rest at night 2 continue tube feeding 3 follow-up Lyrica and increase BuSpar for anxiety 4 GI and DVT prophylaxis 5 anticipate discharge in the next 72 hours or so. I do not think we have a true deep-seated pulmonary infection. She does have chronic colonization we Argun to give her 5 days of antibiotics consider switching to something p.o. for going home. She could have IV antibiotics in her house as well if needed. The patient continues to refuse many interventions. Because of her slightly worsened respiratory status today I do not want to risk her returning immediately or go to continue to observe her see if we can calm down her secretions and improve her pulmonary toilet Continue ICU level care. Social work and family are aware as is the patient they understand and agree 6 Recent Results (from the past 24 hours) Central line blood gas Collection Time: 06/24/25 3:52 AM Result Value Ref Range pH Central Line 7.41 7.32 - 7.43 pCO2 Central Line 56 40 - 60 mmHg pO2 Central Line 43 30 - 55 mmHg HCO3 Central Line 32 (H) 22 - 26 mmol/L O2 Saturation, Central Line 74 % Base Excess, Central Line 10 (H) -2 - 2 mmol/L CBC auto differential Collection Time: 06/24/25 3:52 AM Result Value Ref Range WBC 3.6 (L) 4.8 - 10.8 K/mcL RBC 3.30 (L) 3.80 - 4.80 M/mcL Hemoglobin 7.4 (L) 11.5 - 16.0 g/dL Hematocrit 26.1 (L) 35.0 - 47.0 % MCV 78.4 (L) 79.0 - 98.0 FL MCH 22.2 (L) 27.0 - 32.0 pcg MCHC 28.4 (L) 32.0 - 37.0 g/dL RDW 19.4 (H) 11.0 - 15.0 % Platelets 229 130 - 400 K/mcL MPV 9.8 7.0 - 11.0 FL NRBC 0.0 <1.0 % NRBC Absolute 0.00 <0.10 K/mcL Hepatic function panel Collection Time: 06/24/25 3:52 AM Result Value Ref Range Total Protein 6.6 6.0 - 8.0 g/dL Albumin 2.1 (L) 3.2 - 5.0 g/dL Total Bilirubin 0.3 0.0 - 1.4 mg/dL Bilirubin, Direct <0.1 0.0 - 0.3 mg/dL Bilirubin, Indirect ALT (SGPT) 9 (L) 10 - 60 unit/L AST (SGOT) 14 10 - 42 unit/L Alkaline Phosphatase 54 42 - 121 unit/L Phosphorus Collection Time: 06/24/25 3:52 AM Result Value Ref Range Phosphorus 2.8 2.5 - 4.5 mg/dL Magnesium Collection Time: 06/24/25 3:52 AM Result Value Ref Range Magnesium 1.9 1.9 - 2.6 mg/dL Basic metabolic panel Collection Time: 06/24/25 3:52 AM Result Value Ref Range Sodium 135 133 - 145 mmol/L Potassium 4.5 3.5 - 5.5 mmol/L Chloride 99 96 - 110 mmol/L CO2 35 (H) 21 - 32 mmol/L Anion Gap 1 (L) 3 - 11 Glucose 86 70 - 100 mg/dL BUN 10 5 - 25 mg/dL Creatinine 0.18 (L) 0.50 - 1.10 mg/dL eGFR 164 >=60 mL/min/1.73m2 BUN/Creatinine Ratio 55.6 Calcium 8.2 (L) 8.5 - 10.5 mg/dL Calcium, ionized Collection Time: 06/24/25 3:52 AM Result Value Ref Range Calcium Ionized 4.61 4.50 - 5.30 mg/dL Manual differential Collection Time: 06/24/25 3:52 AM Result Value Ref Range Neutrophils % 83.0 % Lymphocytes % 14.0 % Monocytes % 2.0 % Eosinophils % 2.0 % Basophils % 0.0 % Neutrophils Absolute Manual 2.99 1.50 - 7.00 K/mcL Lymphocytes Absolute 0.50 (L) 1.00 - 5.00 K/mcL Monocytes Absolute Manual 0.07 (L) 0.20 - 1.00 K/mcL Eosinophils Absolute Manual 0.07 0.00 - 0.50 K/mcL Basophils Absolute Manual 0.00 0.00 - 0.20 K/mcL Rbc Morphology Present (A) Consistent with indices, Normal for Platelet Morphology - [facility] See Note (A) Normal Polychromasia Present Present (A) (none) Ovalocytes Present 5 - 10% (A) (none) XR Chest 1 View Narrative: PROCEDURE: AP chest radiograph. HISTORY: Pneumonia. COMPARISON: 06/23/2025. FINDINGS: Unchanged support apparatus. Stable elevation of the right hemidiaphragm. Patchy right basilar opacity suggestive of atelectasis is also unchanged. There is no pneumothorax, pleural effusion, or pulmonary edema. Cardiomediastinal contours are stable. There is a stable thoracic dextroscoliosis. Milddegenerative changes of the spine. Impression: Unchanged appearance of the chest. -------- FINAL REPORT -------- Dictated By: Robert Richardson Dictated Date: 06/24/2025 08:13 ET Assigned Physician: Robert Richardson Reviewed and Electronically Signed By: Robert Richardson Signed Date: 06/24/2025 08:14 ET Workstation ID: [id number] Transcribed By: Self Edit Transcribed Date: 06/24/2025 08:13 ET Current Facility-Administered Medications Medication Dose Route Frequency Provider Last Rate Last Admin acetylcysteine (MUCOMYST) 100 mg/mL (10 %) solution 400 mg 4 mL nebulization q6h Araseli Morton MD 400 mg at 06/24/25 0814 albuterol 2.5 mg /3 mL (0.083 %) nebulizer solution 2.5 mg 2.5 mg nebulization q2h PRN Edwar ERICK Stiles 2.5 mg at 06/20/25 2326 ammonium lactate (LAC-HYDRIN) 12 % lotion Topical Daily Edwar ERICK Stiles Given at 06/24/25 0909 busPIRone (BUSPAR) tablet 10 mg 10 mg oral TID Jada Grissom MD 10 mg at 06/24/25 0906 calcium carbonate-vitamin D 500 mg-5 mcg (200 unit) per tablet 2 tablet 2 tablet oral BID Edwar ERICK Stiles 2 tablet at 06/24/25 0906 cefTAZidime (FORTAZ) 1 g in sodium chloride 0.9 % 100 mL IVPB 1 g intravenous q8h JUAN MIGUEL Jada Grissom MD chlorhexidine (PERIDEX) 0.12 % solution 15 mL 15 mL Mouth/Throat BID Edwar ERICK Stiles 15 mL at 06/24/25 0905 [Held by provider] dexmedeTOMIDine (PRECEDEX) 200 mcg in sodium chloride 0.9 % 50 mL (4 mcg/mL) infusion 0.2-1.5 mcg/kg/hr intravenous Continuous Edwar ERICK Stiles Stopped at 06/21/25 1300 dextrose (D50W) 50% injection 12.5 g 12.5 g intravenous q15 min PRN Edwar ERICK Stiles dextrose (D50W) 50% injection 25 g 25 g intravenous q15 min PRN EdwarERICK Thakkar dextrose 15 gram/60 mL oral solution 15 g 15 g oral q15 min PRN Edwar ERICK Stiles dextrose 15 gram/60 mL oral solution 30 g 30 g oral q15 min PRN Edwar [place] PA docusate (COLACE) liquid 200 mg 200 mg oral Daily Edwar ERICK Stiles 200 mg at 06/24/25 09 enoxaparin (LOVENOX) injection 40 mg 40 mg subcutaneous q24h JUAN MIGUEL Edwar [place] PA 40 mg at 06/24/25 09 famotidine (PEPCID) 8 mg/mL suspension 20 mg 20 mg oral BID Edwar [place] PA 20 mg at 06/24/25 1023 ferrous sulfate 300 mg (60 mg elemental iron)/5 mL liquid 300 mg 300 mg oral BID Edwar [place] 300 mg at 06/24/25 09 folic acid (FOLVITE) tablet 1 mg 1 mg oral Daily Edwar [place] 1 mg at 06/24/25 09 Glucagon HCl (rDNA) injection 1 mg 1 mg intramuscular Once PRN Edwar ERICK Stiles guaiFENesin (ROBITUSSIN) 100 mg/5 mL liquid 600 mg 600 mg oral TID PRN Edwar [place] PA 600 mg at 06/21/25 0837 insulin lispro injection 2-12 Units 2-12 Units subcutaneous q6h Edwar [place] ipratropium-albuteroL (DUONEB) 0.5-2.5 mg/3 mL nebulizer solution 3 mL 3 mL nebulization q6h Edwar [place], PA 3 mL at 06/24/25 0814 LORazepam (ATIVAN) injection 2 mg 2 mg intravenous Once Edwar [place] PA magnesium oxide (MAG-OX) tablet 600 mg 600 mg oral TID Edwar [place] PA 600 mg at 06/24/25 09 melatonin tablet 3 mg 3 mg oral Nightly PRN Edwar [place] 3 mg at 06/22/252055 metoprolol tartrate (LOPRESSOR) tablet 12.5 mg 12.5 mg oral q8h Edwar [place] 12.5 mg at midodrine (PROAMATINE) tablet 10 mg 10 mg oral q8h Edwar [place] 10 mg at 06/24/25 06 pregabalin (LYRICA) capsule 75 mg 75 mg j-tube BID Jada Grissom MD 75 mg at 06/24/25 0906 pyRIDostigmine (MESTINON) tablet 30 mg 30 mg oral 4x daily Edwar ERICK Stiles 30 mg at 06/24/25 0906 sodium chloride 0.9 % infusion 42 mL/hr intravenous PRN Edwar ERICK Stiles traMADoL (ULTRAM) tablet 50 mg 50 mg oral q4h Edwar ERICK Stiles 50 mg at 06/24/25 1105 traZODone (DESYREL) tablet 50 mg 50 mg oral Nightly Edwar ERICK Stiles 50 mg at 06/23/25 2019 Jada Grissom MD * Viktoriya Morales RN - 06/24/2025 1:15 PM EDT Discharge held for today due to desats. Updated [facility] and [facility]. Potential for d/c Friday06/27/[address] Grissom. * Kalee Mars RRT - 06/24/2025 12:23 PM EDT Pt requiring frequent suctioning. SpO2 decreased to 86% on 30% trach mask. Increased O2 to 50% [id number]%. * Kalee Mars RRT - 06/24/2025 10:48 AM EDT This financial underwriter spoke with Jana from [facility] regarding vent settings for patient. Per Dr. Grissom no changes to current home vent settings. * Viktoriya Morales RN - 06/24/2025 10:40 AM EDT Informed by Dr. Grissom pt is potential discharge today. Updated Cleve Esquivel at [facility] he reports a nurse is currently training with another patient and should be potentially available to start with pt next week. Spoke with Felipe at [facility] provided update on potential discharge requested d/c summary be faxed to office when available. Per [facility] respiratory therapist there are no changes i n ventilator settings. Call placed to respiratory therapist for Fátima Bates [phone] message left to confirm. Requested D/C planning assistants issue IMM. Updated [facility] infusion for tube feeds via epic. Awaiting confirmation of discharge. * Maryellen Francisco - 06/24/2025 10:01 AM EDT IMM given to patient to sign at bedside @10:01am, mom Sandrita sign the IMM, copy given to patient in swedish, copy fax over MR and sign copy added to pt chart. * Jada Grissom MD - 06/23/2025 2:49 PM EDT Follow up time (mins): Critical care time (mins) : 60 Send was seen and examined chart and events reviewed case discussed with the night team. This patient is very well-known to us at [facility]. She has myasthenia gravis and rheumatoid arthritis she is essentially quadriplegic on nocturnal ventilation via trach she has a feeding tube. She has chronic tachycardia as well as anxiety. She recently stayed in the hospital where she presented with an emergingdiagnosis of chronic hypercapnic respiratory failure. During that time it was clear she was breathing at a lower lung volume she was discharged home on June 16. She returned on June 20 with complaints of chest pain tachycardia shortness of breath. Through the hand bander family reported that thepatient was dyspneic but did not want to go on her ventilator the impression of the staff caring for the patient was that she had had a significant anxiety attack. Psychiatry has been called to see her she does take some anxiolytics and she may need some medication changes. She is on empiric antibiotics but I do not really think she is infected. She has been doing a reasonable job of her protecting her airway and being on trach collar during the daytime. Today the patient did refuse a psychiatry evaluation Staff does report that she has pain in her hands and feet related to her arthritis or possible somedegree of neuropathy. We started Lyrica today Physical Exam: Temp is 97.4 pulse is 116 respirate is 26 sats 94% on trach mask blood pressure is 143/82 As usual the patient is lying flat Lungs have diminished breath sounds Cardiac's S1-S2 Abdomen is doughy Extremities are unchanged Data: Venous blood gas demonstrates reasonably compensated hypercapnic respiratory failure she still requires O2 white count is 4 hematocrit is 26 platelets of 218 creatinine is good Medication: Mucomyst Lac-Hydrin Unasyn BuSpar calcium and vitamin D chlorhexidine Colace Lovenox Pepcid iron folic acid insulin lorazepam midodrine Lopressor minocycline Lyrica Mestinon desyrel Problem List: Myasthenia gravis Status post trach and J-tube Nocturnal ventilatory support Rheumatoid arthritis Neuromuscular weakness Hypercapnic respiratory failure Anxiety Tachycardia Chest pain Plan: 1 increase BuSpar today and add Lyrica BuSpar for the anxiety and Lyrica for hand and feet symptoms Continue with daytime trach collar and nocturnal ventilatory support. Tube feeding as tolerated. In the past the patient has been very anxious surrounding eating by mouth this is not necessary sore holding on that Hold dexmedetomidine if the patient tolerates the extra BuSpar we can consider sending her home thenext 24 hours Continue GI and DVT prophylaxis This is a difficult case as the patient herself refuses many interventions she is a vague historianeven taking into account that she has a tracheostomy we will attempt to interview the patient to determine whether or not there are any issues that need to be intervened on more aggressively. Continue ICU level care. 2 3 4 5 6 Recent Results (from the past 24 hours) Lactate Collection Time: 06/23/25 4:26 AM Result Value Ref Range Lactate 0.8 0.4 - 2.0 mmol/L Calcium, ionized Collection Time: 06/23/25 4:26 AM Result Value Ref Range Calcium Ionized 4.69 4.50 - 5.30 mg/dL Magnesium Collection Time: 06/23/25 4:26 AM Result Value Ref Range Magnesium 1.8 (L) 1.9 - 2.6 mg/dL Phosphorus Collection Time: 06/23/25 4:26 AM Result Value Ref Range Phosphorus 3.3 2.5 - 4.5 mg/dL Comprehensive metabolic panel Collection Time: 06/23/25 4:26 AM Result Value Ref Range Sodium 136 133 - 145 mmol/L Potassium 4.1 3.5 - 5.5 mmol/L Chloride 100 96 - 110 mmol/L CO2 35 (H) 21 - 32 mmol/L Anion Gap 1 (L) 3 - 11 Glucose 101 (H) 70 - 100 mg/dL BUN 15 5 - 25 mg/dL Creatinine 0.31 (L) 0.50 - 1.10 mg/dL eGFR 144 >=60 mL/min/1.73m2 BUN/Creatinine Ratio 48.4 Calcium 8.2 (L) 8.5 - 10.5 mg/dL AST (SGOT) 14 10 - 42 unit/L ALT (SGPT) <6 (L) 10 - 60 unit/L Alkaline Phosphatase 59 42 - 121 unit/L Total Protein 7.0 6.0 - 8.0 g/dL Albumin 2.2 (L) 3.2 - 5.0 g/dL Total Bilirubin 0.4 0.0 - 1.4 mg/dL Procalcitonin Collection Time: 06/23/25 4:26 AM Result Value Ref Range Procalcitonin 0.34 (H) <=0.16 ng/mL Central line blood gas Collection Time: 06/23/25 4:26 AM Result Value Ref Range pH Central Line 7.39 7.32 - 7.43 pCO2 Central Line 57 40 - 60 mmHg pO2 Central Line 46 30 - 55 mmHg HCO3 Central Line 31 (H) 22 - 26 mmol/L O2 Saturation, Central Line 82 % Base Excess, Central Line 9 (H) -2 - 2 mmol/L CBC auto differential Collection Time: 06/23/25 4:26 AM Result Value Ref Range WBC 4.4 (L) 4.8 - 10.8 K/mcL RBC 3.30 (L) 3.80 - 4.80 M/mcL Hemoglobin 7.3 (L) 11.5 - 16.0 g/dL Hematocrit 26.5 (L) 35.0 - 47.0 % MCV 79.6 79.0 - 98.0 FL MCH 21.9 (L) 27.0 - 32.0 pcg MCHC 27.5 (L) 32.0 - 37.0 g/dL RDW 19.3 (H) 11.0 - 15.0 % Platelets 218 130 - 400 K/mcL MPV 11.2 (H) 7.0 - 11.0 FL NRBC 0.0 <1.0 % NRBC Absolute 0.00 <0.10 K/mcL Neutrophils Relative 82.4 % Lymphocytes Relative 14.5 % Monocytes Relative 2.0 % Eosinophils Relative 0.9 % Basophils Relative 0.0 % Immature Granulocytes Relative 0.2 % Neutrophils Absolute 3.62 1.50 - 7.00 K/mcL Lymphocytes Absolute 0.64 (L) 1.00 - 5.00 K/mcL Monocytes Absolute 0.09 (L) 0.20 - 1.00 K/mcL Eosinophils Absolute 0.04 0.00 - 0.50 K/mcL Basophils Absolute 0.00 0.00 - 0.20 K/mcL Immature Granulocytes Absolute 0.01 0.00 - 0.03 K/mcL XR Chest 1 View Narrative: PROCEDURE: AP chest radiograph. HISTORY: acute respiratory failure. COMPARISON: 06/21/2025. FINDINGS: Stable support apparatus. Lower lung volumes with elevation of the right hemidiaphragm. Hazy opacity projecting over the right base could represent layering pleural fluid. No pneumothorax. Unchanged cardiomediastinal contours. Lower thoracic dextroscoliosis. Impression: Possible new layering right pleural effusion. -------- FINAL REPORT -------- Dictated By: Robert Richardson Dictated Date: 06/23/2025 08:05 ET Assigned Physician: Robert Richardson Reviewed and Electronically Signed By: Robert Richardson Signed Date: 06/23/2025 08:06 ET Workstation ID: [id number] Transcribed By: Self Edit Transcribed Date: 06/23/2025 08:05 ET Current Facility-Administered Medications Medication Dose Route Frequency Provider Last Rate Last Admin acetylcysteine (MUCOMYST) 100 mg/mL (10 %) solution 400 mg 4 mL nebulization q6h Araseli Morton MD 400 mg at 06/23/25 1406 albuterol 2.5 mg /3 mL (0.083 %) nebulizer solution 2.5 mg 2.5 mg nebulization q2h PRN Edwar ERICK Stiles 2.5 mg at 06/20/25 2326 ammonium lactate (LAC-HYDRIN) 12 % lotion Topical Daily Edwar ERICK Stiles Given at 06/23/25 0918 ampicillin-sulbactam (UNASYN) 3 g in sodium chloride 0.9 % 100 mL IVPB 3 g intravenous q6h Araseli Morton MD Stopped at 06/23/25 1412 busPIRone (BUSPAR) tablet 5 mg 5 mg oral TID Edwar ERICK Stiles 5 mg at 06/23/25 1349 calcium carbonate-vitamin D 500 mg-5 mcg (200 unit) per tablet 2 tablet 2 tablet oral BID Edwar ERICK Stiles 2 tablet at 06/23/25 0918 chlorhexidine (PERIDEX) 0.12 % solution 15 mL 15 mL Mouth/Throat BID Edwar ERICK Stiles 15 mL at 06/23/25 0918 [Held by provider] dexmedeTOMIDine (PRECEDEX) 200 mcg in sodium chloride 0.9 % 50 mL (4 mcg/mL) infusion 0.2-1.5 mcg/kg/hr intravenous Continuous ERICK Cerda Stopped at 06/21/25 1300 dextrose (D50W) 50% injection 12.5 g 12.5 g intravenous q15 min PRN Edwar ERICK Stiles dextrose (D50W) 50% injection 25 g 25 g intravenous q15 min PRN Edwar ERICK Stiles dextrose 15 gram/60 mL oral solution 15 g 15 g oral q15 min PRN Edwar ERICK Stiles dextrose 15 gram/60 mL oral solution 30 g 30 g oral q15 min PRN Edwar ERICK Stiles docusate (COLACE) liquid 200 mg 200 mg oral Daily Edwar ERICK Stiles 200 mg at 06/21/25 0837 enoxaparin (LOVENOX) injection 40 mg 40 mg subcutaneous q24h JUAN MIGUEL Edwar ERICK Stiles 40 mg at 06/23/25 0918 famotidine (PEPCID) 8 mg/mL suspension 20 mg 20 mg oral BID Edwar ERICK Stiles 20 mg at 06/23/25 1349 ferrous sulfate 300 mg (60 mg elemental iron)/5 mL liquid 300 mg 300 mg oral BID Edwar ERICK Stiles 300 mg at 06/23/25 0918 folic acid (FOLVITE) tablet 1 mg 1 mg oral Daily Edwar ERICK Stiles 1 mg at 06/23/25 0918 Glucagon HCl (rDNA) injection 1 mg 1 mg intramuscular Once PRN Edwar ERICK Stiles guaiFENesin (ROBITUSSIN) 100 mg/5 mL liquid 600 mg 600 mg oral TID PRN Edwar [place], PA 600 mg at 06/21/25 0837 insulin lispro injection 2-12 Units 2-12 Units subcutaneous q6h Edwar [place], [place] ipratropium-albuteroL (DUONEB) 0.5-2.5 mg/3 mL nebulizer solution 3 mL 3 mL nebulization q6h Edwar [place], PA 3 mL at 06/23/25 1406 LORazepam (ATIVAN) injection 2 mg 2 mg intravenous Once Edwar [place], PA magnesium oxide (MAG-OX) tablet 600 mg 600 mg oral TID Edwar [place], PA 600 mg at 06/23/25 1349 melatonin tablet 3 mg 3 mg oral Nightly PRN Edwar [place], PA 3 mg at 06/22/252055 metoprolol tartrate (LOPRESSOR) tablet 12.5 mg 12.5 mg oral q8h Edwar [place], PA 12.5 mg at 405 midodrine (PROAMATINE) tablet 10 mg 10 mg oral q8h Edwar [place], PA 10 mg at 06/23/25 1405 minocycline (MINOCIN) 100 mg in sodium chloride 0.9 % 100 mL IVPB 100 mg intravenous q12h Araseli Morton MD Stopped at 06/23/25 1448 pregabalin (LYRICA) capsule 75 mg 75 mg j-tube BID Jada Grissom MD pyRIDostigmine (MESTINON) tablet 30 mg 30 mg oral 4x daily Edwar [place], PA 30 mg at 06/23/25 1349 sodium chloride 0.9 % infusion 42 mL/hr intravenous PRN Edwar [place], PA traMADoL (ULTRAM) tablet 50 mg 50 mg oral q4h Edwar [place], PA 50 mg at 06/23/25 1405 traZODone (DESYREL) tablet 50 mg 50 mg oral Nightly Edwar [place], PA 50 mg at 06/22/252054 Jada Grissom MD * Brandon Morris, [employer] - 06/23/2025 2:36 PM EDT Pt taken off vent this morning. Placed on trach mask. Bottle changed. Suction mod white amounts. Ptstill has oxygen needs as she desaturates to mid 80's. Neb tx's via trach mask. Trach dressing changed. Skin is intact. Light manual percussion anterior faisal fair. Plan: Rest on vent NOC. Family brought in speaking valve but PT wishes not to use. * Azalea Allison LCSW - 06/23/2025 11:43 AM EDT Sw reviewed the pt's chart pt is refusing to speak with psych, active status with [facility] pt is not medically ready to d/c sw will continue to follow for d/c planning * Cherry Sweet MD - 06/23/2025 8:35 AM EDT The u/s attempted to see the patient for psychiatric consult today, but she again refused the consult. Psychiatry will sign off at this time. Please reconsult if the patient should become willing to engage in the consult. * Everton Capellan - 06/22/2025 9:39 PM EDT Patient placed back to vent and tolerated well, no respiratory distress noted. Sat 99% and will continue to monitor 06/22/252133 Vent Information Vent Model / ID [id number] O2 Delivery Method Trach tube Vent Mode VC/AC Ventilator On Yes Vent Settings FiO2 (%) 50 % Resp Rate (Set) 14 Vt (Set, mL) 400 mL PEEP/CPAP (cm H2O) 5 cm H20 Trigger Sensitivity Flow (L/min) 5 L/min Humidification Heater Heater Temperature 30.5 ??C (86.9 ??F) Water level 1/2 Readings Resp Rate Observed 18 Exhaled Vt (mL) 391 mL Minute Ventilation (L/min) 7.5 L/min PIP Observed (cm H2O) 26 cm H2O MAP (cm H2O) 12 SpO2 99 % I:E Ratio 1:2 Plateau Pressure (cm H2O) 27 cm H2O Static Compliance (L/cm H2O) 22 Alarms High pressure limit 40 cm H2O Low pressure 5 cm H2O MV High (L/min) 15 L/min MV Low (L/min) 4 L/min Vt High (mL) 750 mL Vt Low (mL) 250 mL Low rate alarm 8 High rate alarm 36 External alarm Yes Apnea Interval (sec) 20 seconds Surgical Airway Shiley Cuffed 7.5 Placement Date/Time: 10/13/242014 Surgical Airway Type: Tracheostomy Brand: Lacey Style: Cuffed Size (mm): 7.5 Comments: changed to [id number] today 06/08 Status Secured Site Assessment Dry;Clean Site Care Open to air Ties Assessment Intact;Clean;Dry Cuff Pressure (cm H2O) 15 cm H2O * Wilmar Harris RN - 06/22/2025 8:43 PM EDT Goals: Problem: Falls: Fall Risk (Adult IP BH) Goal: (Goal) Patient will experience maximum safety and reduce risk for falls. Outcome: Progressing Goal: Patient will not fall or injure themselves during hospitalization. Outcome: Progressing Problem: Respiratory distress related to problem list condition Goal: Resident will be free of signs and symptoms of respiratory distress aeb lungs clear to ausc bilateral, resp even and nonlabored Outcome: Progressing Problem: Cognitive: Santiago Adalberto Fall Risk Goal: Last Known Fall Outcome: Progressing Goal: Mobility requiring assistance of person or device Outcome: Progressing Goal: Dizziness Outcome: Progressing Goal: Medications Outcome: Progressing Goal: Mental Status/LOC/Awareness Outcome: Progressing Goal: Toileting Needs Outcome: Progressing Goal: Volume and Electrolyte Status Outcome: Progressing Goal: Communication/Sensory Outcome: Progressing Goal: Behavior Outcome: Progressing Identify possible barriers to meeting goals/advancing plan of care: ABX Stability of the patient: Moderately Unstable - Medium risk of patient condition declining or worsening End of Shift Summary: * Araseli Morton MD - 06/22/2025 12:19 PM EDT CCM PROGRESS NOTE Code Status: Full Code - Confirmed Length of Stay: 3 ICU Day: 3 SUBJECTIVE ICU COURSE ALESSIO 06/20: ICU ADMIT. ICU consulted by Dr. Ronnie Sierra for evaulation of 30 yof, well known to this ICUwith hx of MG, paraplegia, chronic trach and PEG, nocturnal vent dependence, presenting with SOB and CP starting today. She was recently discharged from this ICU on 06/16 after being admitted for multifocal pneumonia and completing course of abx. Today her family reports she developed SOB this afternoon while on trach collar and refused to go back on the vent, later developing worsening SOB and anxiety. ED workup showing sinus tachycardia in the 150s, tachypnea in the 30-40s, BP stable, O2 sat 90s on trach collar, febrile to 100.3. Lab work showing WBC 11, VBG 7.37/69/33, lactate 0.8, trop 12, BNP 93, mag 1.8. UA negative. CXR showing haziness in RLL appears similar to prior, trach in good position. CTA ordered and pending. Deep suctioning was performed and pt placed on vent setting, able to generate tidal volumes in the 400s. HR improved to 140s after ativan 1mg. After discussion with family member at bedside using robotic machine tender production, decision was made to admit pt to ICU for further management of acute on chronic respiratory failure in setting of hospital-acquired PNA vs mucus plugging vs PE vs severe anxiety. [facility] Transfer of care received from [facility] neelam Stiles, PAC. Overnight events and EMR reviewed. Patient examined and discussed with ICU bedside nurse and ICU multidisciplinary team on AM rounds. Overnight and AM noteable events include: No new clinical events overnight AVSS Comfortable and relaxed on dexmedetomidine infusion Minimal tracheal secretions sputum cultures pending [facility]: Transfer of care received from [facility] neelam Stiles, PAC. Overnight events and EMR reviewed. Patient examined and discussed with ICU bedside nurse and ICU multidisciplinary team on AM rounds. Overnight and AM noteable events include: No new clinical events overnight AVSS AM labs and VBG are unremarkable except for Hb 6.8 from 7.7 in the clinical setting of 2 L positivefluid balance since admission without evidence of active blood loss ( likely dilutional anemia on anemia of chronic disease. Admission sputum cultures are remarkable for preliminarily positive for gram- negative bacilli Admission blood cultures are preliminarily no growth to date Patient will remain on current antimicrobials regimen with Zosyn and minocycline (for stenotrophomonas) until cultures/sensitivities are final OBJECTIVE FLUID BALANCE VITAL SIGNS Intake/Output Summary (Last 24 hours) at 06/22/2025 1219 Last data filed at 06/22/2025 1106 Gross per 24 hour Intake 1623.29 ml Output -- Net 1623.29 ml Weight change: 3.056 kg (6 lb 11.8 oz) Visit Vitals BP 109/72 Pulse 105 Temp 36.9 ??C (98.5 ??F) Resp 24 OXYGENATION AND VENTILATION Vent Mode: Volume control/Assist control FiO2 (%): [40 %-50 %] 40 % S RR: [14] 14 S VT: [400 mL] 400 mL PEEP/CPAP (cm H2O): [5 cm H20] 5 cm H20 MAP (cm H2O): [8.9-9.6] 9.5 ABG Lab Results Component Value Date PHART 7.40 05/27/2025 PHART 7.47 (H) 10/13/2024 [id number] 69 (HH) 05/27/2025 [id number] 65 (HH) 10/13/2024 PO2ART 61 (L) 05/27/2025 PO2ART 92 10/13/2024 [id number] 36.9 (H) 05/27/2025 [id number] 41.3 (H) 10/13/2024 [id number] 94.5 (L) 05/27/2025 [id number] 97.2 10/13/2024 BEART 15.5 (H) 05/27/2025 BEART 21.0 (H) 10/13/2024 [facility] 05/27/2025 Comment: right brachial [facility] Pass 10/13/2024 FIO2 0.40 05/27/2025 FIO2 0.30 10/13/2024 PHYSICAL EXAMINATION General: on mechanically assisted ventilation via #7.5 tracheostomy. Appearance: Patient awake alert, smiling and pleasant demeanor. No Acute Distress Head Exam: Midline tracheostomy and JT tubes in place . Normocephalic, Symmetric HEENT: Sclera Anicteric, PERRL, Moist Mucous Membranes, Trachea Midline, Other Thorax: No AccessoryMuscle Use Chest: Left subclavian TLC in place. Bilateral scattered rhonchi that clear with suctioning and weak cough. Symmetric chest rise with mechanically assisted ventilation Abdomen: Soft, Non-tender, hypoactive but present BS all 4 quarants. JT heme (-) and w/o without blood Rectal Exam: Heme (-) loose , liquid stool) : IUBC in place Skin: Skin Color Normal, Skin Temperature Normal, Skin Turgor Normal. CRF < 3sec Wound Present: No Upper Extremity Appearance: bilateral chronic flexion contractures without change. R brachial PICC line in place Lower Extremity Appearance: bilateral chronic flexion contractures without change Mental Status: A, A & interactive with family and bedside personnel Follows Commands: Yes, but limited by baseline quadraparesis Motor Response: symmetric, non-focally localizes noxious stimuli all 4 extremities Sensory Response: nonfocally localizes noxious stimuli all 4 extremities CURRENT MEDICATIONS Scheduled Meds: acetylcysteine, 4 mL, nebulization, q6h ammonium lactate, , Topical, Daily ampicillin-sulbactam, 3 g, intravenous, q6h busPIRone, 5 mg, oral, TID calcium carbonate-vitamin D, 2 tablet, oral, BID chlorhexidine, 15 mL, Mouth/Throat, BID docusate, 200 mg, oral, Daily enoxaparin, 40 mg, subcutaneous, q24h JUAN MIGUEL famotidine, 20 mg, oral, BID ferrous sulfate, 300 mg, oral, BID folic acid, 1 mg, oral, Daily insulin lispro, 2-12 Units, subcutaneous, q6h ipratropium-albuteroL, 3 mL, nebulization, q6h LORazepam, 2 mg, intravenous, Once magnesium oxide, 600 mg, oral, TID metoprolol tartrate, 12.5 mg, oral, q8h midodrine, 10 mg, oral, q8h minocycline (MINOCIN) 100 mg in sodium chloride 0.9 % 100 mL IVPB, 100 mg, intravenous, q12h pyRIDostigmine, 30 mg, oral, 4x daily traMADoL, 50 mg, oral, q4h traZODone, 50 mg, oral, Nightly dexmedeTOMIDine (PRECEDEX) infusion, 0.2-1.5 mcg/kg/hr, Last Rate: Stopped (06/21/25 1300) PRN medications: albuterol, dextrose 50%, dextrose 50%, dextrose, dextrose, glucagon injection, guaiFENesin, melatonin, sodium chloride Continuous Infusions:dexmedeTOMIDine (PRECEDEX) infusion, 0.2-1.5 mcg/kg/hr, Last Rate: Stopped (06/21/25 1300) PRN Meds: PRN medications: albuterol, dextrose 50%, dextrose 50%, dextrose, dextrose, glucagon injection, guaiFENesin, melatonin, sodium chloride LINES & DRAINS CVC 06/21/25 Triple Lumen Left left subclavian (Active) Site Assessment Clean;Dry;Intact 06/22/25 0400 Proximal Lumen Status Blood return noted;Capped;Flushed 06/21/25 0501 Medial 1 Lumen Status Blood return noted;Capped;Flushed 06/21/25 0501 Distal Lumen Status Blood return noted;Capped;Flushed 06/21/25 0501 Phlebitis Scale 0 06/21/25 1302 Dressing Type Transparent with Chlorhexidine Gluconate gel 06/22/25 0400 Dressing Status Clean;Dry;Intact 06/22/25 0400 Dressing Intervention Other (Comment) 06/21/25 1302 Dressing Change Due 06/28/25 06/21/25 1302 Peripheral IV 06/20/25 Left;Posterior Hand (Active) Site Assessment Clean;Dry;Intact 06/22/25 1125 Dressing Type Transparent 06/22/25 1125 Line Status Flushed;Capped 06/22/25 1125 Phlebitis Scale 0 06/22/25 1125 Dressing Status Clean;Dry;Intact 06/22/25 1125 Dressing Intervention Other (Comment) 06/22/25 1125 Peripheral IV 06/20/25 Anterior;Proximal;Right Antecubital (Active) Site Assessment Clean;Dry;Intact 06/22/25 0400 Dressing Type Transparent 06/22/25 0400 Dressing Status Clean;Dry;Intact 06/22/25 0400 Gastrostomy/Enterostomy Jejunostomy LUQ (Active) Surrounding Skin Intact;Reddened;Dry 06/22/25 040 Drain Status Other (Comment) 06/21/25 135 Drainage Appearance Bile 06/21/25 135 Site Description Bleeding;Leaking at site;Reddened 06/21/25 135 Dressing Status Other (Comment);Removed 06/21/25 135 Dressing Intervention New dressing 06/21/25 135 Tube Feeding Frequency Continuous 06/22/25399 Tube Feeding Jevity 1.5 James 06/22/25 040 Tube Feeding Strength Full strength 06/22/25 040 Tube Feeding Rate (mL/hr) 50 mL 06/21/251999 Tube Feeding Method Continuous per pump 06/21/251999 Tube Feeding Bag Changed Yes 06/21/25 1350 Feeding Tube Flushed With Sterile water 06/21/251999 Flush Intake Volume (mL) 100 mL 06/22/25 0500 Intake (mL) 150 mL 06/22/25 0500 Surgical Airway Shiley Cuffed 7.5 (Active) Status Secured 06/22/25 08 Site Assessment Clean;Dry 06/22/25 1052 Site Care Cleansed;Dressing applied 06/22/25 08 Inner Cannula Care Cleansed/dried 06/22/25 08 Ties Assessment Intact;Secure;Clean;Dry 06/22/25 08 Cuff Pressure (cm H2O) 0 cm H2O 06/22/25 1000 NUTRITION Diet Order: Dietary Orders (From admission, onward) Start Ordered 06/22/25 113 Diet, Tube Feeding/NPO [facility]; Jevity 1.5 James; Other (Comment); J Tube; 50; 100; Water; Other (specify); every 3 hours; NPO- No Exceptions; Tube Feed No Tray (Tube Feeding) Diet effective now Comments: -run Jevity 1.5 at 50 ml/hr. -give 100 ml water flush every 3 hours. Follow EN Algorithm Flowchart for tolerance Question Answer Comment Location: [facility] Tube feeding formula: Jevity 1.5 James Route: Other (Comment) Tube feed route comment: J Tube Tube feeding continuous rate (mL/hr): 50 Tube feeding flush (mL): 100 Tube feeding flush type: Water Tube feeding flush frequency: Other (specify) Tube feed flush comment: every 3 hours Diet NPO- No Exceptions Diet Tube Feed No Tray 06/22/25 1133 LAB RESULTS Lab Results Component Value Date WBC 5.9 06/22/2025 RBC 3.20 (L) 06/22/2025 HGB 6.8 (L) 06/22/2025 HCT 25.5 (L) 06/22/2025 MCV 80.2 06/22/2025 MCHC 26.7 (L) 06/22/2025 RDW 19.3 (H) 06/22/2025 PLT 200 06/22/2025 MPV 9.6 06/22/2025 NRBC 0.0 06/22/2025 DIFF Lab Results Component Value Date LYMPHOPCT 13.1 06/22/2025 NEUTROABS 4.94 06/22/2025 LYMPHSABS 0.77 (L) 06/22/2025 MONOABS 0.14 (L) 06/22/2025 EOSABS 0.02 06/22/2025 BASOSABS 0.01 06/22/2025 IMMGRANABS 0.02 06/22/2025 RETIC No results found for: RETIC , RETICCTPCT Lab Results Component Value Date NA 137 06/22/2025 K 4.1 06/22/2025 CL 104 06/22/2025 CO2 32 06/22/2025 GLUCOSE 94 06/22/2025 BUN 19 06/22/2025 CREATININE 0.24 (L) 06/22/2025 CALCIUM 8.4 (L) 06/22/2025 PROT 7.4 06/21/2025 ALBUMIN 2.5 (L) 06/21/2025 BILITOT 0.3 06/21/2025 AST 19 06/21/2025 ALT 8 (L) 06/21/2025 PHOS 3.9 06/22/2025 MG 2.0 06/22/2025 ALKPHOS 63 06/21/2025 EGFR 153 06/22/2025 RADIOLOGY I have reviewed the relevant diagnostic imaging MICROBIOLOGY I have reviewed the relevant microbiology ASSESSMENT & PLAN Diagnosis (ACUTE/Chronic) Plan Neuro: Anxiety Weakness Noncompliance with home MV support Myasthenia gravis Quadriplegia and quadriparesis (appears to be at baseline) Neuromyopathy syndrome Rheumatoid arthritis involving multiple sites with positive rheumatoid factor Failure to thrive in adult -Pain control: scheduled scheduled buspirone, tramadol, acetaminophen oribuprofen as needed for acute pain -Sedation/Anxiety management: Dexmeditomidine, Olanzapine, trazadone, Buspirone melatonin - Psychiatry consult report for anxiety disorder (Dr. Decker) is pending today Cardiovascular/Hematological: Chronic tachycardia Chronic arterial hypotension -target MAP > 65 mmHg - Continue metoprolol for chronic tachycardia - Continue midodrine for chronic arterial hypotension Heme: Left common femoral vein DVT (nonocclusive, chronic) Chronic anemia -transfusion trigger Hb < 7.0 g/dl -VTE prophylaxis: mechanical, LMWH - surveillance duplex US LLE PRN - Continue scheduled ferrous sulfate and folic acid Pulmonary: Acute on chronic respiratory failure with hypoxia and hypercapnia Acute Bilateral pneumonia -GNR organism, culture sensitivities pending Bilateral lung atelectasis Respiratory disorder with ventilator dependence Tracheostomy in place -Target SaO2 > 92% -VAPP bundle -Lung protective vent strategy - mechanical ventilator wean during day with TM trials and planned rest overnight for alveolar recruitment as possible -Albuterol nebs scheduled and RN -Mucomyst nebs -aggressive pulmonary toilet -Continue guaifenesin -F/U sputum cultures GI/Nutrition: Jejunostomy tube in situ Functional incontinence - Peptic Ulcer Prophylaxis: Pantoprazole - Nutrition consult for enteral protocol /Renal/Lytes: -target UO > 0.5 cc/kg/h Adjusted IBW -replace electrolytes to WNL -IUBC for hourly UO while critically ill Endocrine: Adrenal insufficiency Immunocompromise state -target BG 140-180 -SSI ICU protocol ID: Bilateral pneumonia ( R>L) -Empiric minocyclne (06/21-) for history of bactrim-resistant Stenotrophomonas PNA -Empiric Unasyn -assess antimicrobials, when present, daily for potential de-escalation. Social: Patient/family updated regarding patient status, response to therapy and plan of care. Skin/Wound: -Wound prevention positioning DISPOSITION: Continue ICU level of care 69 minutes of critical care time was spent in direct patient care at the bedside or in the immediate area with this patient. They are acutely ill with system failure. They are at high risk for decompensation. This time was spent assessing and managing the patient, interpreting labs and imaging, coordinating care with other medical providers, and gathering history and discussing management and prognosis with family. Araseli Morton MD * RAMONE Zhang - 06/22/2025 10:57 AM EDT Social work to follow as needed for dc planning. Initial assessment reviewed relative to community services --active status with [employer], [employer] and [facility]. Per ICC, following AM inpatient rounds;psychiatric consult being considered relative to medication management. * Wilmar Harris RN - 06/21/2025 10:13 PM EDT Goals: Problem: Falls: Fall Risk (Adult IP BH) Goal: (Goal) Patient will experience maximum safety and reduce risk for falls. Outcome: Progressing Goal: Patient will not fall or injure themselves during hospitalization. Outcome: Progressing Problem: Respiratory distress related to problem list condition Goal: Resident will be free of signs and symptoms of respiratory distress aeb lungs clear to ausc bilateral, resp even and nonlabored Outcome: Progressing Identify possible barriers to meeting goals/advancing plan of care: Stability of the patient: Moderately Unstable - Medium risk of patient condition declining or worsening End of Shift Summary: * Araseli Morton MD - 06/21/2025 5:28 PM EDT CCM PROGRESS NOTE Code Status: Full Code - Confirmed Length of Stay: 2 ICU Day: 2 SUBJECTIVE ICU COURSE ALESSIO 06/20: ICU ADMIT. ICU consulted by Dr. Ronnie Sierra for evaulation of 30 yof, well known to this ICUwith hx of MG, paraplegia, chronic trach and PEG, nocturnal vent dependence, presenting with SOB and CP starting today. She was recently discharged from this ICU on 06/16 after being admitted for multifocal pneumonia and completing course of abx. Today her family reports she developed SOB this afternoon while on trach collar and refused to go back on the vent, later developing worsening SOB and anxiety. ED workup showing sinus tachycardia in the 150s, tachypnea in the 30-40s, BP stable, O2 sat 90s on trach collar, febrile to 100.3. Lab work showing WBC 11, VBG 7.37/69/33, lactate 0.8, trop 12, BNP 93, mag 1.8. UA negative. CXR showing haziness in RLL appears similar to prior, trach in good position. CTA ordered and pending. Deep suctioning was performed and pt placed on vent setting, able to generate tidal volumes in the 400s. HR improved to 140s after ativan 1mg. After discussion with family member at bedside using robotic machine tender production, decision was made to admit pt to ICU for further management of acute on chronic respiratory failure in setting of hospital-acquired PNA vs mucus plugging vs PE vs severe anxiety. THOMAS 06/21: Transfer of care received from [facility] cleaning custodian Edwar Stiles, PAC. Overnight events and EMR reviewed. Patient examined and discussed with ICU bedside nurse and ICU multidisciplinary team on AM rounds. Overnight and AM noteable events include: No new clinical events overnight AVSS Comfortable and relaxed on dexmedetomidine infusion Minimal tracheal secretions sputum cultures pending OBJECTIVE FLUID BALANCE VITAL SIGNS Intake/Output Summary (Last 24 hours) at 06/21/2025 1728 Last data filed at 06/21/2025 1500 Gross per 24 hour Intake 448.83 ml Output 400 ml Net 48.83 ml Weight change: Visit Vitals BP 104/60 Pulse 108 Temp 36.7 ??C (98.1 ??F) (Oral) Resp 14 OXYGENATION AND VENTILATION Vent Mode: Volume control/Assist control FiO2 (%): [50 %] 50 % S RR: [14] 14 S VT: [400 mL] 400 mL PEEP/CPAP (cm H2O): [5 cm H20] 5 cm H20 MAP (cm H2O): [8.8-10] 9.1 ABG Lab Results Component Value Date PHART 7.40 05/27/2025 PHART 7.47 (H) 10/13/2024 [id number] 69 (HH) 05/27/2025 [id number] 65 (HH) 10/13/2024 PO2ART 61 (L) 05/27/2025 PO2ART 92 10/13/2024 [id number] 36.9 (H) 05/27/2025 [id number] 41.3 (H) 10/13/2024 [id number] 94.5 (L) 05/27/2025 [id number] 97.2 10/13/2024 BEART 15.5 (H) 05/27/2025 BEART 21.0 (H) 10/13/2024 [facility] 05/27/2025 Comment: right brachial [facility] Pass 10/13/2024 FIO2 0.40 05/27/2025 FIO2 0.30 10/13/2024 PHYSICAL EXAMINATION General: on mechanically assisted ventilation via #7.5 tracheostomy. Appearance: Patient awake alert, smiling and pleasant demeanor. No Acute Distress Head Exam: Midline tracheostomy and JT tubes in place . Normocephalic, Symmetric HEENT: Sclera Anicteric, PERRL, Moist Mucous Membranes, Trachea Midline, Other Thorax: No AccessoryMuscle Use Chest: Left subclavian TLC in place. Bilateral scattered rhonchi that clear with suctioning and weak cough. Symmetric chest rise with mechanically assisted ventilation Abdomen: Soft, Non-tender, hypoactive but present BS all 4 quarants. JT heme (-) and w/o without blood Rectal Exam: Heme (-) loose , liquid stool) : IUBC in place Skin: Skin Color Normal, Skin Temperature Normal, Skin Turgor Normal. CRF < 3sec Wound Present: No Upper Extremity Appearance: bilateral chronic flexion contractures without change. R brachial PICC line in place Lower Extremity Appearance: bilateral chronic flexion contractures without change Mental Status: A, A & interactive with family and bedside personnel Follows Commands: Yes, but limited by baseline quadraparesis Motor Response: symmetric, non-focally localizes noxious stimuli all 4 extremities Sensory Response: nonfocally localizes noxious stimuli all 4 extremities CURRENT MEDICATIONS Scheduled Meds: acetylcysteine, 4 mL, nebulization, q4h ammonium lactate, , Topical, Daily ampicillin-sulbactam, 3 g, intravenous, q6h busPIRone, 5 mg, oral, TID calcium carbonate-vitamin D, 2 tablet, oral, BID chlorhexidine, 15 mL, Mouth/Throat, BID docusate, 200 mg, oral, Daily enoxaparin, 40 mg, subcutaneous, q24h JUAN MIGUEL famotidine, 20 mg, oral, BID ferrous sulfate, 300 mg, oral, BID folic acid, 1 mg, oral, Daily insulin lispro, 2-12 Units, subcutaneous, q6h ipratropium-albuteroL, 3 mL, nebulization, q6h LORazepam, 2 mg, intravenous, Once magnesium oxide, 600 mg, oral, TID metoprolol tartrate, 12.5 mg, oral, q8h midodrine, 10 mg, oral, q8h minocycline (MINOCIN) 100 mg in sodium chloride 0.9 % 100 mL IVPB, 100 mg, intravenous, q12h pyRIDostigmine, 30 mg, oral, 4x daily traMADoL, 50 mg, oral, q4h traZODone, 50 mg, oral, Nightly dexmedeTOMIDine (PRECEDEX) infusion, 0.2-1.5 mcg/kg/hr, Last Rate: Stopped (06/21/25 1300) PRN medications: albuterol, dextrose 50%, dextrose 50%, dextrose, dextrose, glucagon injection, guaiFENesin, melatonin Continuous Infusions:dexmedeTOMIDine (PRECEDEX) infusion, 0.2-1.5 mcg/kg/hr, Last Rate: Stopped (06/21/25 1300) PRN Meds: PRN medications: albuterol, dextrose 50%, dextrose 50%, dextrose, dextrose, glucagon injection, guaiFENesin, melatonin LINES & DRAINS CVC 06/21/25 Triple Lumen Left left subclavian (Active) Site Assessment Clean;Dry;Intact 06/21/25 1302 Proximal Lumen Status Blood return noted;Capped;Flushed 06/21/25 0501 Medial 1 Lumen Status Blood return noted;Capped;Flushed 06/21/25 0501 Distal Lumen Status Blood return noted;Capped;Flushed 06/21/25 0501 Phlebitis Scale 0 06/21/25 1302 Dressing Type Chlorhexidine patch 06/21/25 1302 Dressing Status Clean;Dry;Intact 06/21/25 1302 Dressing Intervention Other (Comment) 06/21/25 1302 Dressing Change Due 06/28/25 06/21/25 1302 Peripheral IV 06/20/25 Left;Posterior Hand (Active) Site Assessment Clean;Dry;Intact 06/21/25 1204 Dressing Type Transparent 06/21/25 1204 Dressing Status Clean;Dry;Intact 06/21/25 1204 Peripheral IV 06/20/25 Anterior;Proximal;Right Antecubital (Active) Site Assessment Clean;Dry;Intact 06/21/25 1409 Dressing Type Transparent 06/21/25 1409 Dressing Status Clean;Dry;Intact 06/21/25 1409 Gastrostomy/Enterostomy Jejunostomy LUQ (Active) Surrounding Skin Macerated;Reddened 06/21/25 1350 Drain Status Other (Comment) 06/21/25 1350 Drainage Appearance Bile 06/21/25 135 Site Description Bleeding;Leaking at site;Reddened 06/21/25 1350 Dressing Status Other (Comment);Removed 06/21/25 1350 Dressing Intervention New dressing 06/21/25 1350 Tube Feeding Frequency Continuous 06/21/25 1350 Tube Feeding Jevity 1.2 James 06/21/25 1350 Tube Feeding Strength Full strength 06/21/25 1350 Tube Feeding Rate (mL/hr) 25 mL 06/21/25 1300 Tube Feeding Bag Changed Yes 06/21/25 1350 Feeding Tube Flushed With Sterile water 06/21/25 1350 Flush Intake Volume (mL) 10 mL 06/21/25 1300 Intake (mL) 25 mL 06/21/25 1500 Surgical Airway Shiley Cuffed 7.5 (Active) Status Other (Comment) 06/21/25 1133 Site Assessment Drainage;Other (Comment) 06/21/25 1133 Site Care Cleansed 06/21/25 1133 Inner Cannula Care Cleansed/dried 06/21/25 1133 Ties Assessment Not needed 06/21/25 1133 NUTRITION Diet Order: Dietary Orders (From admission, onward) Start Ordered 06/21/25 1051 Diet, Tube Feeding/NPO [facility]; Jevity 1.5 James; Other (Comment); J Tube; 50; 100; Water; Other (specify); every 3 hours; NPO- No Exceptions; Tube Feed No Tray (Tube Feeding) Diet effective now Comments: -start Jevity 1.5 at 25 ml/hr, increase to 50 ml goal in 3 hours. -give 100 ml water flush every 3 hours. Follow EN Algorithm Flowchart for tolerance Question Answer Comment Location: [facility] Tube feeding formula: Jevity 1.5 James Route: Other (Comment) Tube feed route comment: J Tube Tube feeding continuous rate (mL/hr): 50 Tube feeding flush (mL): 100 Tube feeding flush type: Water Tube feeding flush frequency: Other (specify) Tube feed flush comment: every 3 hours Diet NPO- No Exceptions Diet Tube Feed No Tray 06/21/25 1109 LAB RESULTS Lab Results Component Value Date WBC 5.4 06/21/2025 RBC 3.50 (L) 06/21/2025 HGB 7.7 (L) 06/21/2025 HCT 28.0 (L) 06/21/2025 MCV 79.5 06/21/2025 MCHC 27.5 (L) 06/21/2025 RDW 19.1 (H) 06/21/2025 PLT 216 06/21/2025 MPV 9.6 06/21/2025 NRBC 0.0 06/21/2025 DIFF Lab Results Component Value Date LYMPHOPCT 15.5 06/21/2025 NEUTROABS 4.41 06/21/2025 LYMPHSABS 0.83 (L) 06/21/2025 MONOABS 0.09 (L) 06/21/2025 EOSABS 0.00 06/21/2025 BASOSABS 0.01 06/21/2025 IMMGRANABS 0.01 06/21/2025 RETIC No results found for: RETIC , RETICCTPCT Lab Results Component Value Date NA 139 06/21/2025 K 4.1 06/21/2025 CL 105 06/21/2025 CO2 33 (H) 06/21/2025 GLUCOSE 88 06/21/2025 BUN 19 06/21/2025 CREATININE 0.31 (L) 06/21/2025 CALCIUM 7.9 (L) 06/21/2025 PROT 7.4 06/21/2025 ALBUMIN 2.5 (L) 06/21/2025 BILITOT 0.3 06/21/2025 AST 19 06/21/2025 ALT 8 (L) 06/21/2025 PHOS 3.4 06/21/2025 MG 2.3 06/21/2025 ALKPHOS 63 06/21/2025 EGFR 144 06/21/2025 RADIOLOGY I have reviewed the relevant diagnostic imaging MICROBIOLOGY I have reviewed the relevant microbiology ASSESSMENT & PLAN Diagnosis (ACUTE/Chronic) Plan Neuro: Anxiety Weakness Noncompliance with home MV support Myasthenia gravis Quadriplegia and quadriparesis (appears to be at baseline) Neuromyopathy syndrome Rheumatoid arthritis involving multiple sites with positive rheumatoid factor Failure to thrive in adult -Pain control: scheduled scheduled buspirone, tramadol, acetaminophen oribuprofen as needed for acute pain -Sedation/Anxiety management: Dexmeditomidine, Olanzapine, trazadone, Buspirone melatonin Cardiovascular/Hematological: Chronic tachycardia Chronic arterial hypotension -target MAP > 65 mmHg - Continue scheduled ferrous sulfate and folic acid - Continue metoprolol for chronic tachycardia - Continue midodrine for chronic arterial hypotension Heme: Chronic anemia -transfusion trigger Hb < 7.0 g/dl -VTE prophylaxis: mechanical, Pulmonary: Acute on chronic respiratory failure with hypoxia and hypercapnia Acute Bilateral pneumonia -unknown organism, cultures pending Bilateral lung atelectasis Respiratory disorder with ventilator dependence Tracheostomy in place -Target SaO2 > 92% -VAPP bundle -Lung protective vent strategy - mechanical ventilator wean during day with TM trials and planned rest overnight for alveolar recruitment as possible -Albuterol nebs scheduled and RN -Mucomyst nebs -aggressive pulmonary toilet -Continue guaifenesin -F/U sputum cultures GI/Nutrition: Jejunostomy tube in situ Functional incontinence - Peptic Ulcer Prophylaxis: Pantoprazole - Nutrition consult for enteral protocol /Renal/Lytes: -target UO > 0.5 cc/kg/h Adjusted IBW -replace electrolytes to WNL -IUBC for hourly UO while critically ill Endocrine: Adrenal insufficiency Immunocompromise state -target BG 140-180 -SSI ICU protocol -fludricortisone ID: Bilateral pneumonia ( R>L) -Empiric minocyclne (06/21-) for history of bactrim-resistant Stenotrophomonas PNA -Empiric Unasyn -assess antimicrobials, when present, daily for potential de-escalation. Social: Patient/family updated regarding patient status, response to therapy and plan of care. Skin/Wound: -Wound prevention positioning DISPOSITION: Continue ICU level of care 85 minutes of critical care time was spent in direct patient care at the bedside or in the immediate area with this patient. They are acutely ill with system failure. They are at high risk for decompensation. This time was spent assessing and managing the patient, interpreting labs and imaging, coordinating care with other medical providers, and gathering history and discussing management and prognosis with family. Araseli Morton MD * Elidia Rodriguez RN - 06/21/2025 5:04 PM EDT 06/21/25 [id number] Initial Transition Plan Initial Transition Plan Home Health Care (Active with [facility] for Block Nursing) Back up Transition Plan Back up Transition plan Home Health Care ([facility]) Discharge Planning Contact (Name, Phone #, Relationship) for DC Planning Mother Sandrita [phone] Living Arrangements Parent;Family members (Mother/sister) Type of Residence Private residence (First floor apartment with ramp access) Assistive Devices Wheelchair;Other (Comment);Oxygen;Eyeglasses (Hospital Bed/Ventilator/Feeding pump) Support Systems Home care staff;Parent;Immediate family Medication Coverage Has Med Coverage Under Insurance Plan Yes Anticipated Discharge Needs Home Health RN;Home Infusion;Other (comment) (Ventilator care with [employer]/G-Tube with feeds supplied by [facility]) Informed Choice Informed Choice Given? Yes Transportation Transportation at discharge [facility] providing transportation [place] Patient recently discharged home last week and now is a readmit with c/o chest pain at home. She isactive with [employer] for ventilator care and supplies as well as [facility] for feedings via G-tube.[facility] patient was admitted by [facility] agency and an RN that is to started evening services is still in training and will begin in home care approximately the end of next week. [facility] is also training a second nurse for in home training as well. Patient is active with [facility] on [address] in [place], [place] and HCP is on file. remote sensing program manager will continue to follow for changes in discharge needs. * Margy Erwin, PharmD - 06/20/2025 10:44 PM EDT Initial Pharmacy Vancomycin Dosing Consultation Consult ordering provider: ERICK Cerda 30 y.o. female is being started on vancomycin nosocomial pneumonia for 7 days. Provider has specified a goal trough of 15-18. Relevant data Height: 1.829 m (72 ) Weight: 74.3 kg (163 lb 14.4 oz) Temp Readings from Last 3 Encounters: 06/20/25 37.9 ??C (100.3 ??F) (Rectal) 06/16/25 36.6 ??C (97.8 ??F) (Temporal) 05/19/25 37.1 ??C (98.7 ??F) (Oral) WBC Date Value Ref Range Status 06/20/2025 11.0 (H) 4.8 - 10.8 K/mcL Final 06/16/2025 4.1 (L) 4.8 - 10.8 K/mcL Final 06/15/2025 3.9 (L) 4.8 - 10.8 K/mcL Final Creatinine Date Value Ref Range Status 06/20/2025 0.34 (L) 0.50 - 1.10 mg/dL Final 06/16/2025 0.28 (L) 0.50 - 1.10 mg/dL Final 06/15/2025 0.28 (L) 0.50 - 1.10 mg/dL Final Estimated Creatinine Clearance: 125 mL/min (A) (by C-G formula based on SCr of 0.34 mg/dL (L)). mL/min Cockcroft-Gault Recent Results (from the past week) Culture blood Collection Time: 06/20/25 7:39 PM Specimen: Blood, Venous Result Value Ref Range Culture, Blood Culture in progress Culture blood Collection Time: 06/20/25 7:50 PM Specimen: Blood, Venous Result Value Ref Range Culture, Blood Culture in progress Legionella antigen urine, EIA Collection Time: 06/20/25 8:18 PM Result Value Ref Range Legionella Antigen, Ur Negative Negative Patient is also receiving the following antibiotic(s): Cefepime Plan Patient has received a Loading vancomycin dose of 1500 mg on 06/20/25 at 20:36. Pharmacy will initiate a maintenance dose of 1250 mg every 8 hours starting on 06/21/25 at 05:00. Per protocol, therapy is expected to last more than 5 days and therefore a trough indicated. A trough has been ordered for 06/22/25 at 04:00 prior to 5th dose due on 06/22/25 at 05:00. Therapy is planned to end on 06/27/25 at this time. Will continue to monitor and recommend changes as necessary. Margy Erwin PharmD 06/20/25 10:37 PM EDT * Bette Miramontes RN - 06/20/2025 8:54 PM EDT Despite deep suctioning of the trach and use of humidified O2 via trach pt resp status remains the same. Per family pt uses ventilator at home for support. Pt placed on ventilator here per MD. Pt tolerating well. * Bette Miramontes RN - 06/20/2025 8:10 PM EDT Assessment performed with hand bander ja #[id number] * Bette Miramontes RN - 06/20/2025 7:07 PM EDT Pt to ER via EMS. CC shortness of breath and dizziness. Hx of paraplegia, trach. Discharged on 06/16 for resp distress. 87% on 3L O2. Family increased her O2 to 4L and she increased to 91%. Per mother via sales account coordinator pt was complaining shortness of breath and dizziness. Vague complaint of chest pain. On EMS arrival she was noted to be 88% on her O2 at 3LPM. Family states her usual is 88-91%. O2 was increased to 4LPM and pt increased to 91%. On arrival to ER she was noted to be tachycardic in 140-150. She was initially resting comfortable with her O2 sat. 92% on 4LPM. Shortly after her arrival pt resp status noted to become distressed. Secretions noted from trach. Breathing labored. O2 91% on 4LPM. Resp notified. MD now at bedside. 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 Patient is a very limited historian and has difficulty communicating secondary to trach and being in acute respiratory distress at this time. Chest pain is midsternal and diffuse. Patient has allergy to morphine causing hives but can tolerate Dilaudid. Patient is receiving Lovenox daily at home. History is primarily provided by mother at bedside. Patient was recently discharged on 06/16/2025 where she was admitted to the ICU for pneumonia and shortness of breath. Has a history of prior admission for acute respiratory distress in setting of suspected mucous plugging. History provided by: Parent History limited by: Acuity of condition multiple drill operator used: Yes Mcfarland Coma Scale Score: 15 Patient History Past Medical History: Diagnosis Date Gastrointestinal tube present ([facility] V24, [facility] V28) Myasthenia gravis ([facility] V24, [facility] V28) Tracheostomy dependent ([facility] V24, [facility] V28) No past surgical history on file. No family history on file. Social History Tobacco Use Smoking status: Never Smokeless tobacco: Never Substance Use Topics Alcohol use: Not on file Drug use: Never Review of Systems Review of Systems Physical Exam ED Triage Vitals [06/20/25 1908] Temp Heart Rate Resp BP 37.3 ??C (99.1 ??F) (!) 140 -- 131/88 SpO2 Temp src Heart Rate Source Patient Position 99 % -- -- -- BP Location FiO2 (%) -- -- Physical Exam Nursing note reviewed. Vitals reviewed: Chronic bilateral upper and lower extremity contractures, chronic skin changes to the soles of the feet, trach in place, PEG tube in place. Constitutional: General: She is in acute distress. HENT: Head: Normocephalic and atraumatic. Right Ear: External ear normal. Left Ear: External ear normal. Nose: Nose normal. Mouth/Throat: Mouth: Mucous membranes are moist. Pharynx: Oropharynx is clear. Eyes: Extraocular Movements: Extraocular movements intact. Pupils: Pupils are equal, round, and reactive to light. Cardiovascular: Rate and Rhythm: Regular rhythm. Tachycardia present. Pulses: Normal pulses. Radial pulses are 2+ on the right side and 2+ on the left side. Dorsalis pedis pulses are 2+ on the right side and 2+ on the left side. Heart sounds: Normal heart sounds. Pulmonary: Effort: Pulmonary effort is normal. Breath sounds: No stridor. Wheezing and rhonchi present. Abdominal: General: There is no distension. Tenderness: There is no abdominal tenderness. There is no right CVA tenderness, left CVA tendernessor guarding. Musculoskeletal: General: Normal range of motion. Cervical back: Normal range of motion and neck supple. Right lower leg: No edema. Left lower leg: No edema. Skin: General: Skin is warm and dry. Capillary Refill: Capillary refill takes less than 2 seconds. Findings: No rash. Neurological: General: No focal deficit present. Mental Status: She is alert and oriented to person, place, and time. Cranial Nerves: No dysarthria or facial asymmetry. Comments: Moves all extremities at her baseline. ED Course & MDM ED Course as of 06/20/252213Jun 20, 20252034 I spoke with the on-call PA pension manager Edwar Stiles. He is familiar with this patient from [facility] recent admission. He agrees this may be pneumonia he is also suggesting trialing 1 mg of IV Ativan for anxiety. He agrees with IV antibiotic course, ventilator. [RT] ED Course User Index [RT] Ronnie Sierra MD Clinical Impressions as of 06/20/252213 Hypoxia Acute respiratory failure with hypoxia (CMS/HCC V24, CMS/HCC V28) Pneumonia due to infectious organism, unspecified laterality, unspecified part of lung Medical Decision Making Patient is a 30-year-old female with history of chronic trach and PEG tube presenting in acute respiratory distress complaining chest pain shortness of breath. On arrival she was noted to be intermittently hypoxic and tachycardic. Airway appeared to be intact, bilateral breath sounds were heard andequal with rhonchi without stridor or wheezing. All 4 extremities had palpable pulses and were warmwith cap refill less than 2 seconds. Patient is chronically bedbound with contractures of all upperand lower extremities. RT was called to did deep suctioning of the trach, patient continued to havesigns of increased work of breathing and was placed on a ventilator which she does use at home. My p reliminary interpretation of the chest x-ray was appropriately placed ET tube, right-sided consolidation no pneumothorax pending final radiology interpretation. EKG sinus tachycardia 136 bpm, QTc 448 MS,, normal axis, no sign of acute ischemia. Labs reviewed which are notable for leukocytosis, stable anemia, no significant electrolyte derangements other than a mild elevation in CO2, no acidosis, hypercarbia that appears to be chronically compensated, lactate negative, troponin negative, UA significantly contaminated lowering my suspicion for UTI. Patient started on broad-spectrum antibiotics for suspected hospital-acquired pneumonia, initially started with 500 cc of IV fluid bolus to avoid volume overload. Patient was pulling good tidal volume 400 cc, not believe there is an obstruction of the tracheostomy tube at this time. I did speak with the on-call pension manager ERICK Stiles, who came down and evaluated the patient. He recommended giving an initial dose of Ativan as he suspected patient was having anxiety, likely contributing to her tachycardia. He is familiar with this patient from the most recent mission in the ICU. He will admit patient to the ICU for acute respiratory failure, pneumonia and further evaluation and workup. A CTA of the chest was also ordered and when patient is deemed clinically stable to leave the ER, will go for imaging, ICU will follow- up these results. Patient has been compliant on herhome Lovenox daily. At this time we will defer to the ICU for further workup and evaluation/management of this patient. Amount and/or Complexity of Data Reviewed Independent Historian: parent Details: See [facility] External Data Reviewed: notes. Details: Discharge summary on 06/16/2025 Labs: ordered. Details: See [facility] Radiology: ordered and independent interpretation performed. Details: See [facility] ECG/medicine tests: ordered and independent interpretation performed. Details: See [facility] Risk Decision regarding hospitalization. Critical Care Performed by: Ronnie Sierra MD Authorized by: Ronnie Sierra MD Critical care provider statement: Critical care time (minutes): 40 Total face to face critical care time (minutes): 40 Critical care time was exclusive of: Separately billable procedures and treating other patients Critical care was necessary to treat or prevent imminent or life-threatening deterioration of the following conditions: Respiratory failure Critical care was time spent personally by me on the following activities: Development of treatmentplan with patient or surrogate, discussions with consultants, evaluation of patient's response to treatment, ordering and review of laboratory studies, ordering and review of radiographic studies, re- evaluation of patient's condition, review of old charts, ordering and performing treatments and interventions and examination of patient Face to face critical care was time spent personally by me on the following activities: Examinationof patient, development of treatment plan with patient or surrogate, pulse oximetry, re-evaluation of patient's condition, ordering and review of laboratory studies, ordering and performing treatments and interventions, ventilator management and obtaining history from patient or surrogate I assumed direction of critical care for this patient from another provider in my specialty: no Care discussed with: admitting provider Ronnie Sierra MD 06/20/251949 Ronnie Sierra MD 06/20/251950 Ronnie Sierra MD 06/20/252003 Ronnie Sierra MD 06/20/254 Ronnie Sierra MD 06/20/25 225 documented in this encounter Consult Notes * Cherry Sweet MD - 06/22/2025 1:01 PM EDTAssociated Order(s): IP CONSULT TO PSYCHIATRY The u/s attempted to see the patient today for psychiatric consultation, but she refused the consult. Will try again tomorrow. * Evangelina Allred RD - 06/21/2025 1:28 PM EDTAssociated Order(s): IP CONSULT TO NUTRITION SERVICES 06/21/2025 @ 1:28 PM EDT Nutrition Consult Note/Nutrition Assessment Reason for RD Intervention: Assessment Type: RN Consult Reason for Assessment: Tube Feeding Additional Assessment Information: J Tube Anthropometrics: Height: 165.1 cm (65 ) Weight: 77.4 kg (170 lb 10.2 oz) BMI (Calculated): 28.4 BMI Class: Overweight IBW (lbs): 125 Current Diet and Supplements: Dietary Orders (From admission, onward) Start Ordered 06/21/25 1051 Diet, Tube Feeding/NPO [facility]; Other (Comment); J Tube; 50; 100; Water; Other (specify); every 3 hours; NPO- No Exceptions; Tube Feed No Tray (Tube Feeding) Diet effective now Comments: -start Jevity 1.5 at 25 ml/hr, increase to 50 ml goal in 3 hours. -give 100 ml water flush every 3 hours. Follow EN Algorithm Flowchart for tolerance Question Answer Comment Location: [facility] Tube feeding formula: Jevity 1.5 James Route: Other (Comment) Tube feed route comment: J Tube Tube feeding continuous rate (mL/hr): 50 Tube feeding flush (mL): 100 Tube feeding flush type: Water Tube feeding flush frequency: Other (specify) Tube feed flush comment: every 3 hours Diet NPO- No Exceptions Diet Tube Feed No Tray 06/21/25 1109 History of presenting illness: Patient is a 30 y.o. female with a history of Past Medical History: Diagnosis Date Gastrointestinal tube present (CMS/HCC V24, CMS/HCC V28) Myasthenia gravis (CMS/HCC V24, CMS/HCC V28) Tracheostomy dependent (CMS/HCC V24, CMS/HCC V28) Past Surgical History: Procedure Laterality Date IR PERCUTANEOUS JEJUNOSTOMY TUBE PLACEMENT Left TRACHEOSTOMY TUBE PLACEMENT admitted 06/20/2025 with Acute on chronic respiratory failure (CMS/HCC V24, CMS/HCC V28). Food/Nutrition History: Previously prescribed diets: Enteral nutrition order Tube Feeding Formula/Solution: Jevity 1.5 5 cartons per day over a 16 hours, one syringe water flush (60 ml) every 4 hours feeds are running, at the start and stop of tube feed cycle, and with meds throughout the day. to provide: 1775 caloires, 76 g protein, 900 ml free water from tune feeds plus water flushes. Self-selected diet(s) followed: NPO Social Influencers of Health & Nutrition - Hunger Vital Signs: Within the past 12 months we worried whether our food would run out before we got money to buy more: Unable to respond Within the past 12 months the food we bought just didn't last and we didn't have money to get more: Unable to respond Who obtained answers? Hunger vital signs completed by other discipline. Assistance: Unable to determine at this time Weight History: Wt Readings from Last 10 Encounters: 06/21/25 77.4 kg (170 lb 10.2 oz) 06/13/25 83.5 kg (184 lb 1.4 oz) 05/19/25 87.1 kg (192 lb) 01/29/25 66.7 kg (147 lb) 01/25/25 75.3 kg (166 lb) 01/19/25 75.3 kg (166 lb) 10/30/24 75.3 kg (166 lb) 09/09/24 65.4 kg (144 lb 2.9 oz) 07/20/24 71.2 kg (157 lb) 05/18/24 71.2 kg (157 lb) Subjective Assessment: Pt returns from home with shortness of breath, chest pain, anxiety, tachycardia, febrile. Tube feeds to be started today via J tube. Nutrition-Related Lab Values: Results from last 7 days Lab Units 06/21/25 1117 06/21/25 0631 06/21/25 0413 SODIUM mmol/L -- -- 139 POTASSIUM mmol/L -- -- 4.1 PHOSPHORUS mg/dL -- -- 3.4 MAGNESIUM mg/dL -- -- 2.3 CHLORIDE mmol/L -- -- 105 CO2 mmol/L -- -- 33* BUN mg/dL -- -- 19 CREATININE mg/dL -- -- 0.31* EGFR mL/min/1.73m2 -- -- 144 CALCIUM mg/dL -- -- 7.9* BILIRUBIN TOTAL mg/dL -- -- 0.3 ALK PHOS unit/L -- -- 63 ALT unit/L -- -- 8* AST unit/L -- -- 19 POCT GLUCOSE mg/dL 88 < > -- GLUCOSE mg/dL -- -- 84 WBC AUTO K/mcL -- -- 5.4 < > = values in this interval not displayed. Lab Results Component Value Date LIPASE 13 05/29/2025 Medications: acetylcysteine, 4 mL, nebulization, q4h ammonium lactate, , Topical, Daily ampicillin-sulbactam, 3 g, intravenous, q6h busPIRone, 5 mg, oral, TID calcium carbonate-vitamin D, 2 tablet, oral, BID chlorhexidine, 15 mL, Mouth/Throat, BID docusate, 200 mg, oral, Daily enoxaparin, 40 mg, subcutaneous, q24h JUAN MIGUEL famotidine, 20 mg, oral, BID ferrous sulfate, 300 mg, oral, BID folic acid, 1 mg, oral, Daily insulin lispro, 2-12 Units, subcutaneous, q6h ipratropium-albuteroL, 3 mL, nebulization, q6h LORazepam, 2 mg, intravenous, Once magnesium oxide, 600 mg, oral, TID metoprolol tartrate, 12.5 mg, oral, q8h midodrine, 10 mg, oral, q8h minocycline (MINOCIN) 100 mg in sodium chloride 0.9 % 100 mL IVPB, 100 mg, intravenous, q12h pyRIDostigmine, 30 mg, oral, 4x daily traMADoL, 50 mg, oral, q4h traZODone, 50 mg, oral, Nightly CONTINUOUS: dexmedeTOMIDine (PRECEDEX) infusion, 0.2-1.5 mcg/kg/hr, Last Rate: 0.5 mcg/kg/hr (06/21/25 0912) PRN medications: albuterol, dextrose 50%, dextrose 50%, dextrose, dextrose, glucagon injection, guaiFENesin, melatonin Energy Needs: kcal, gm protein, mL fluid per day. Total Energy Estimated Needs: based on adjusted weight for quadraplegia [id number] calories (20-25 james/kg), 66-99 g protein (1-1.5 g/kg), fluid as per pension manager Height: 165.1 cm (65 ) Minute Ventilation (L/min): 5.3 L/min Temp: 37.8 ??C (100 ??F) Food/Nutrition-Current Status: Intake Type: Enteral (via J tube: Jevity 1.5 at 50 ml/hr continuous) Kcal: 1620 Protein (gm): 69 Free Water (mL): 821 Water Flushes: 100 ml every 3 hours ( to provide 800 ml per day) % RDI: 96 Current Diet Status: Appropriate (NPO) Intake Assessment: Adequate (with Tube Feeds at goal rate) Main IVF: None Propofol?: No Nutrition Focused Physical Findings: Overall Appearance: staff in with patient, unable to assess Digestive System (Mouth to Rectum): Swallowing difficulty Skin: right foot, right ankle pressure injures Nutrition Diagnosis: Code Type: None Identified Status: New Diagnosis: Swallowing Difficulty Etiology: Physiologic causes Symptoms: as evidenced by chronic J tube feeds Nutrition Interventions: Enteral Nutrition, Collaboration and Referral of Nutrition Care Collaboration and Referral of Nutrition Care: Collaborate with Other Providers Enteral Nutrition: Access Type: J-tube Formula: Jevity 1.5 James Feeding Type: Continuous Goal Rate: 55 Water Flush: 100 mL Water Flush Frequency: (every 3 hours) Goals: EN: Patient tolerating goal TF. , Monitor/control glucose levels, Improvement in LFTs., Improvementin renal labs., Electrolytes within normal range., Maintain weight., Stooling appropriately., and Wound healing progress. Coordination of Patient Care: Verbal discussion with RN., Verbal discussion with provider., and Patient discussed during ICU rounds and nutrition plan of care updated accordingly. Monitoring/Evaluation: Weight, Renal/Electrolyte Profile, Gastrointestinal Profile, Enteral Nutrition Intake Follow Up: Nutrition Priority Level: High RD remains available and will continue to follow. Signature: Evangelina Allred RD documented in this encounter Plan of Treatment Pending Results Name Type Priority Associated Diagnoses Date /Time Central Line Insertion Procedures Routine Acute respiratory failure with hypoxia ([facility] [place], [facility] V28) 06/21/2025 1:35 AM EDT Scheduled Referrals Name Type Priority Associated Diagnoses Orde r Schedule Ambulatory referral to Home Health Outpatient Referral Routine Hypoxia Acute respiratory failure with hypoxia ([facility] [place], [facility]) Chronic hypoxic respiratory failure ([facility] [place], [facility] V28) Anxiety Chronic respiratory failure requiring use of nocturnal mechanical ventilation through tracheostomy ([facility], [facility] V28) Quadriplegia and quadriparesis ([facility], [facility] V28) On mechanically assisted ventilation ([facility], [facility] V28) Immunocompromised state ([facility] V24) Weakness Respiratory disorder with ventilator dependence ([facility], [facility] V28) Tracheostomy in place ([facility], [facility] V28) Functional incontinence Adrenal insufficiency ([facility] V24[facility] Jejunostomy tube in situ ([facility]24, [facility] V28) Myasthenia gravis ([facility]24, [facility] V28) Rheumatoid arthritis involving multiple sites with positive rheumatoid factor ([facility], [facility] V28) Failure to thrive in adult Neuromyopathy syndrome ([facility], [facility] V28) Ordered: 07/01/2025 documented as of this encounter Procedures Procedure Name Priority Date/Time Associated Diagnosis Comments PROCALCITONIN Routine 07/01/2025 3:44 AM EDT CBC WITH AUTO DIFFERENTIAL Routine 07/01/2025 3:44 AM EDT CBC AND DIFFERENTIAL Routine 07/01/2025 3:44 AM EDT PHOSPHORUS Routine 07/01/2025 3:44 AM EDT MAGNESIUM Routine 07/01/2025 3:44 AM EDT CALCIUM, IONIZED Routine 07/01/2025 3:44 AM EDT BASIC METABOLIC PANEL Routine 07/01/2025 3:44 AM EDT OXYGEN THERAPY, ADULT Routine 06/30/2025 8:01 AM EDT VENTILATOR, ADULT Routine 06/30/2025 8:0 1 AM EDT MANUAL DIFFERENTIAL - SYSMEX WAM Routine 06/30/2025 4:17 AM EDT PROCALCITONIN Routine 06/30/2025 4:17 AM EDT CBC WITH AUTO DIFFERENTIAL Routine 06/30/2025 4:17 AM EDT CBC AND DIFFERENTIAL Routine 06/30/2025 4:17 AM EDT PHOSPHORUS Routine 06/30/2025 4:17 AM EDT MAGNESIUM Routine 06/30/2025 4:17 AM EDT CALCIUM, IONIZED Routine 06/30/2025 4:17 AM EDT BASIC METABOLIC PANEL Routine 06/30/2025 4:17 AM EDT OXYGEN THERAPY, ADULT Routine 06/29/2025 8:00 PM EDT VENTILATOR, ADULT Routine 06/29/2025 8:0 0 PM EDT OXYGEN THERAPY, ADULT Routine 06/29/2025 8:02 AM EDT VENTILATOR, ADULT Routine 06/29/2025 8:0 2 AM EDT XR CHEST 1 VIEW Routine 06/29/2025 6:04 AM EDT MANUAL DIFFERENTIAL - SYSMEX WAM Routine 06/29/2025 3:29 AM EDT CBC WITH AUTO DIFFERENTIAL Routine 06/29/2025 3:29 AM EDT CBC AND DIFFERENTIAL Routine 06/29/2025 3:29 AM EDT PHOSPHORUS Routine 06/29/2025 3:29 AM EDT MAGNESIUM Routine 06/29/2025 3:29 AM EDT LACTATE Routine 06/29/2025 3:29 AM EDT VENOUS BLOOD GAS Routine 06/29/2025 3:29 AM EDT CALCIUM, IONIZED Routine 06/29/2025 3:29 AM EDT COMPREHENSIVE METABOLIC PANEL Routine 06/29/2025 3:29 AM EDT OXYGEN THERAPY, ADULT Routine 06/28/2025 8:00 PM EDT VENTILATOR, ADULT Routine 06/28/2025 8:0 0 PM EDT OXYGEN THERAPY, ADULT Routine 06/28/2025 8:02 AM EDT VENTILATOR, ADULT Routine 06/28/2025 8:0 2 AM EDT XR CHEST 1 VIEW Routine 06/28/2025 5:29 AM EDT CENTRAL LINE BLOOD GAS Routine 4:22 AM EDT CBC WITH AUTO DIFFERENTIAL Routine 06/28/2025 4:22 AM EDT CBC AND DIFFERENTIAL Routine 06/28/2025 4:22 AM EDT PHOSPHORUS Routine 06/28/2025 4:22 AM EDT MAGNESIUM Routine 06/28/2025 4:22 AM EDT LACTATE Routine 06/28/2025 4:22 AM EDT CALCIUM, IONIZED Routine 06/28/2025 4:22 AM EDT BASIC METABOLIC PANEL Routine 06/28/2025 4:22 AM EDT OXYGEN THERAPY, ADULT Routine 06/27/2025 8:00 PM EDT VENTILATOR, ADULT Routine 06/27/2025 8:0 0 PM EDT OXYGEN THERAPY, ADULT Routine 06/27/2025 8:02 AM EDT VENTILATOR, ADULT Routine 06/27/2025 8:0 2 AM EDT XR CHEST 1 VIEW Routine 06/27/2025 5:46 AM EDT CENTRAL LINE BLOOD GAS Routine 4:30 AM EDT CBC WITH AUTO DIFFERENTIAL Routine 06/27/2025 4:30 AM EDT CBC AND DIFFERENTIAL Routine 06/27/2025 4:30 AM EDT MAGNESIUM Routine 06/27/2025 4:30 AM EDT CALCIUM, IONIZED Routine 06/27/2025 4:30 AM EDT BASIC METABOLIC PANEL Routine 06/27/2025 4:30 AM EDT OXYGEN THERAPY, ADULT Routine 06/26/2025 8:00 PM EDT VENTILATOR, ADULT Routine 06/26/2025 8:0 0 PM EDT ECG 12-LEAD Routine 06/26/2025 2:26 PM EDT VAS US DUPLEX LOWER EXT VENOUS LEFT Routine 06/26/2025 2:18 PM EDT Chronic hypoxic respiratory failure (CMS/HCC V24, CMS/HCC V28) OXYGEN THERAPY, ADULT Routine 06/26/2025 8:00 AM EDT VENTILATOR, ADULT Routine 06/26/2025 8:0 0 AM EDT CENTRAL LINE BLOOD GAS Routine 4:30 AM EDT MANUAL DIFFERENTIAL - SYSMEX WAM Routine 06/26/2025 4:30 AM EDT CBC WITH AUTO DIFFERENTIAL Routine 06/26/2025 4:30 AM EDT CBC AND DIFFERENTIAL Routine 06/26/2025 4:30 AM EDT PHOSPHORUS Routine 06/26/2025 4:30 AM EDT MAGNESIUM Routine 06/26/2025 4:30 AM EDT CALCIUM, IONIZED Routine 06/26/2025 4:30 AM EDT BASIC METABOLIC PANEL Routine 06/26/2025 4:30 AM EDT OXYGEN THERAPY, ADULT Routine 06/25/2025 8:00 PM EDT OXYGEN THERAPY, ADULT Routine 06/25/2025 8:01 AM EDT CENTRAL LINE BLOOD GAS Routine 4:32 AM EDT PROCALCITONIN Routine 06/25/2025 4:32 AM EDT CBC WITH AUTO DIFFERENTIAL Routine 06/25/2025 4:32 AM EDT CBC AND DIFFERENTIAL Routine 06/25/2025 4:32 AM EDT PHOSPHORUS Routine 06/25/2025 4:32 AM EDT MAGNESIUM Routine 06/25/2025 4:32 AM EDT CALCIUM, IONIZED Routine 06/25/2025 4:32 AM EDT BASIC METABOLIC PANEL Routine 06/25/2025 4:32 AM EDT OXYGEN THERAPY, ADULT Routine 06/24/2025 8:00 PM EDT VENTILATOR, ADULT Routine 06/24/2025 12: 22 PM EDT VENTILATOR, ADULT Routine 06/24/2025 12: 22 PM EDT OXYGEN THERAPY, ADULT Routine 06/24/2025 8:19 AM EDT OXYGEN THERAPY, ADULT Routine 06/24/2025 8:19 AM EDT XR CHEST 1 VIEW Routine 06/24/2025 5:49 AM EDT CENTRAL LINE BLOOD GAS Routine 3:52 AM EDT MANUAL DIFFERENTIAL - SYSMEX WAM Routine 06/24/2025 3:52 AM EDT CBC WITH AUTO DIFFERENTIAL Routine 06/24/2025 3:52 AM EDT CBC AND DIFFERENTIAL Routine 06/24/2025 3:52 AM EDT PHOSPHORUS Routine 06/24/2025 3:52 AM EDT MAGNESIUM Routine 06/24/2025 3:52 AM EDT CALCIUM, IONIZED Routine 06/24/2025 3:52 AM EDT HEPATIC FUNCTION PANEL Routine 3:52 AM EDT BASIC METABOLIC PANEL Routine 06/24/2025 3:52 AM EDT VENTILATOR, ADULT Routine 06/23/2025 7:3 2 PM EDT VENTILATOR, ADULT Routine 06/23/2025 7:3 2 PM EDT XR CHEST 1 VIEW Routine 06/23/2025 5:23 AM EDT CENTRAL LINE BLOOD GAS Routine 4:26 AM EDT PROCALCITONIN Routine 06/23/2025 4:26 AM EDT CBC WITH AUTO DIFFERENTIAL Routine 06/23/2025 4:26 AM EDT CBC AND DIFFERENTIAL Routine 06/23/2025 4:26 AM EDT PHOSPHORUS Routine 06/23/2025 4:26 AM EDT MAGNESIUM Routine 06/23/2025 4:26 AM EDT LACTATE Routine 06/23/2025 4:26 AM EDT CALCIUM, IONIZED Routine 06/23/2025 4:26 AM EDT COMPREHENSIVE METABOLIC PANEL Routine 06/23/2025 4:26 AM EDT COMPLETE BLOOD COUNT Routine 06/22/2025 12:04 PM EDT TRANSFUSE RED BLOOD CELLS STAT 06/22/2025 9:12 AM EDT VENTILATOR, ADULT Routine 06/22/2025 8:0 2 AM EDT ANTIBODY IDENTIFICATION Routine 06/22/2025 6:22 AM EDT TYPE AND SCREEN Routine 06/22/2025 6:22 AM EDT PREPARE RBC STAT 06/22/2025 5:52 AM EDT CENTRAL LINE BLOOD GAS Routine 5:06 AM EDT PROCALCITONIN Routine 06/22/2025 5:06 AM EDT CBC WITH AUTO DIFFERENTIAL Routine 06/22/2025 5:06 AM EDT CBC AND DIFFERENTIAL Routine 06/22/2025 5:06 AM EDT PHOSPHORUS Routine 06/22/2025 5:06 AM EDT MAGNESIUM Routine 06/22/2025 5:06 AM EDT CALCIUM, IONIZED Routine 06/22/2025 5:06 AM EDT BASIC METABOLIC PANEL Routine 06/22/2025 5:06 AM EDT VENTILATOR, ADULT Routine 06/21/2025 8:0 1 PM EDT CULTURE SPUTUM STAT 06/21/2025 3:59 PM EDT POCT GLUCOSE BLOOD Routine 06/21/2025 11 :17 AM EDT VENTILATOR, ADULT Routine 06/21/2025 8:0 3 AM EDT POCT GLUCOSE BLOOD Routine 06/21/2025 6: 31 AM EDT RESPIRATORY VIRUS PANEL MOLECULAR STUDY STAT 06/21/2025 4:32 AM EDT PROCALCITONIN Routine 06/21/2025 4:13 AM EDT CBC WITH AUTO DIFFERENTIAL Routine 06/21/2025 4:13 AM EDT MRSA PCR STAT 06/21/2025 4:13 AM EDT CBC AND DIFFERENTIAL Routine 06/21/2025 4:13 AM EDT PHOSPHORUS Routine 06/21/2025 4:13 AM EDT MAGNESIUM Routine 06/21/2025 4:13 AM EDT VENOUS BLOOD GAS STAT 06/21/2025 4:13 AM EDT CALCIUM, IONIZED Routine 06/21/2025 4:13 AM EDT COMPREHENSIVE METABOLIC PANEL Routine 06/21/2025 4:13 AM EDT POCT GLUCOSE BLOOD Routine 06/21/2025 2: 45 AM EDT VAS US DUPLEX LOWER EXT VENOUS BILAT STAT 06/21/2025 2:38 AM EDT Acute respiratory failure with hypoxia (CMS/HCC V24, CMS/HCC V28) XR CHEST 1 VIEW STAT 06/21/2025 1:58 AM EDT CENTRAL LINE Routine 06/21/2025 1:35 AM EDT Acute respiratory failure with hypoxia (CMS/HCC V24, CMS/HCC V28) CT ANGIO CHEST WO AND/OR W CONTRAST STAT 06/21/2025 12:09 AM EDT Hypoxia ECG ANNOTATED 06/21/2025 POCT GLUCOSE BLOOD Routine 06/20/2025 10 :50 PM EDT TROPONIN I HIGH SENSITIVITY Timed 06/20/2025 10:12 PM EDT SST - GOLD Routine 06/20/2025 10:12 PM EDT EXTRA TUBES Routine 06/20/2025 10:12 PM EDT ACTIVATED PARTIAL THROMBOPLASTIN TIME STAT 06/20/2025 10:12 PM EDT PROTHROMBIN TIME WITH INR STAT 06/20/2025 10:12 PM EDT HCG, SERUM, QUALITATIVE STAT Add-on 06/20/2025 10:12 PM EDT B-TYPE NATRIURETIC PEPTIDE STAT 06/20/2025 10:12 PM EDT VENTILATOR, ADULT Routine 06/20/2025 9:3 2 PM EDT VENTILATOR, ADULT Routine 06/20/2025 9:3 2 PM EDT VENTILATOR, ADULT Routine 06/20/2025 9:3 2 PM EDT PROTHROMBIN TIME WITH INR STAT 06/20/2025 8:39 PM EDT MAGNESIUM Add-On 06/20/2025 8:39 PM EDT COMPREHENSIVE METABOLIC PANEL STAT 06/20/2025 8:39 PM EDT XR CHEST 1 VIEW STAT 06/20/2025 8:27 PM EDT URINALYSIS WITH REFLEX MICROSCOPIC AND CULTURE STAT 06/20/2025 8:18 PM EDT NARANJO URINE CULTURE TUBE STAT 06/20/2025 8:18 PM EDT LEGIONELLA ANTIGEN URINE, EIA STAT Add-on 06/20/2025 8:18 PM EDT URINALYSIS WITH REFLEX MICROSCOPIC AND CULTURE STAT 06/20/2025 8:18 PM EDT CULTURE URINE STAT 06/20/2025 8:18 PM EDT CULTURE BLOOD STAT 06/20/2025 7:50 PM EDT VENOUS BLOOD GAS STAT 06/20/2025 7:50 PM EDT CBC WITH AUTO DIFFERENTIAL STAT 06/20/2025 7:41 PM EDT CBC AND DIFFERENTIAL STAT 06/20/2025 7:41 PM EDT LACTATE, WITH REFLEX STAT 06/20/2025 7:39 PM EDT TROPONIN I HIGH SENSITIVITY Timed 06/20/2025 7:39 PM EDT CULTURE BLOOD STAT 06/20/2025 7:39 PM EDT ECG 12-LEAD STAT 06/20/2025 7:16 PM EDT SC CRITICAL CARE 30-74 MINUTES Routine 06/20/2025 6:57 PM EDT documented in this encounter Results * (ABNORMAL) CBC auto differential (07/01/2025 3:44 AM EDT) [facility] WBC 5.9 4.8 - 10.8 K/mcL LAB HEMETOLOGY METHOD 07/01/2025 4:03 AM [facility] RBC 3.30(L) 3.80 - 4.80 M/mcL LAB HEMETOLOGY METHOD 07/01/2025 4:03 AM [facility] Hemoglobin 7.0(L) 11.5 - 16.0 g/dL LAB HEMETOLOGY METHOD 07/01/2025 4:03 AM [facility] Hematocrit 25.4(L) 35.0 - 47.0 % LAB HEMETOLOGY METHOD 07/01/2025 4:03 AM [facility] MCV 77.2(L) 79.0 - 98.0 FL LAB HEMETOLOGY METHOD 07/01/2025 4:03 AM [facility] MCH 21.3(L) 27.0 - 32.0 pcg LAB HEMETOLOGY METHOD 07/01/2025 4:03 AM [facility] MCHC 27.6(L) 32.0 - 37.0 g/dL LAB HEMETOLOGY METHOD 07/01/2025 4:03 AM [facility] RDW 19.3(H) 11.0 - 15.0 % LAB HEMETOLOGY METHOD 07/01/2025 4:03 AM [facility] Platelets 279 130 - 400 K/mcL LAB HEMETOLOGY METHOD 07/01/2025 4:03 AM [facility] MPV 9.4 7.0 - 11.0 FL LAB HEMETOLOGY METHOD 07/01/2025 4:03 AM [facility] NRBC 0.0 <1.0 % LAB HEMETOLOGY METHOD 07/01/2025 4:03 AM [facility] NRBC Absolute 0.00 <0.10 K/mcL LAB HEMETOLOGY METHOD 07/01/2025 4:03 AM [facility] Neutrophils Relative 80.7 % LAB HEMETOLOGY METHOD 07/01/2025 4:03 AM [facility] Lymphocytes Relative 16.8 % LAB HEMETOLOGY METHOD 07/01/2025 4:03 AM [facility] Monocytes Relative 1.7 % LAB HEMETOLOGY METHOD 07/01/2025 4:03 AM [facility] Eosinophils Relative 0.5 % LAB HEMETOLOGY METHOD 07/01/2025 4:03 AM [facility] Basophils Relative 0.0 % LAB HEMETOLOGY METHOD 07/01/2025 4:03 AM [facility] Immature Granulocytes Relative 0.3 % LAB HEMETOLOGY METHOD 07/01/2025 4:03 AM [facility] Neutrophils Absolute 4.72 1.50 - 7.00 K/mcL LAB HEMETOLOGY METHOD 07/01/2025 4:03 AM [facility] Lymphocytes Absolute 0.98(L) 1.00 - 5.00 K/mcL LAB HEMETOLOGY METHOD 07/01/2025 4:03 AM [facility] Monocytes Absolute 0.10(L) 0.20 - 1.00 K/mcL LAB HEMETOLOGY METHOD 07/01/2025 4:03 AM [facility] Eosinophils Absolute 0.03 0.00 - 0.50 K/mcL LAB HEMETOLOGY METHOD 07/01/2025 4:03 AM [facility] Basophils Absolute 0.00 0.00 - 0.20 K/mcL LAB HEMETOLOGY METHOD 07/01/2025 4:03 AM [facility] Immature Granulocytes Absolute 0.02 0.00 - 0.03 K/mcL LAB HEMETOLOGY METHOD 07/01/2025 4:03 AM EDT [facility] Blood Venous blood specimen / Unknown Venipuncture / Unknown 07/01/2025 3:44 AM EDT 07/01/2025 4:00 AM EDT us Parveen Warner DO LAB BLOOD ORDERABLES Final R esult [facility] [address] [place] [address], * (ABNORMAL) Procalcitonin (07/01/2025 3:44 AM EDT) Procalcitonin 0.21(H) <=0.16 ng/mL LAB CHEMISTRY METHOD 07/01/2025 7:49 AM EDT [facility] Blood Venous blood specimen / Unknown Venipuncture / Unknown 07/01/2025 3:44 AM EDT 07/01/2025 4:00 AM EDT Narrative [facility] - 07/01/2025 7:49 AM EDT Procalcitonin > 2.00 ng/ml: Procalcitonin Levels above [...] any concentrations <2.0 ng/mL are obtained. [facility] BLOOD ORDERABLES Final R esult Performing Organization Address City/[facility]/ZIP Co de Phone Number [facility] [address] [place] [address], [place] [phone] * Phosphorus (07/01/2025 3:44 AM EDT) Phosphorus 4.0 2.5 - 4.5 mg/dL LAB CHEMISTRY METHOD 07/01/2025 4:19 AM EDT [facility] Blood Venous blood specimen / Unknown Venipuncture / Unknown 07/01/2025 3:44 AM EDT 07/01/2025 4:00 AM EDT Parveen [facility] BLOOD ORDERABLES Final R esult Performing Organization Address [facility] Co de Phone Number [facility] [address] [place] [address], [place] [phone] * Magnesium (07/01/2025 3:44 AM EDT) Magnesium 1.9 1.9 - 2.6 mg/dL LAB CHEMISTRY METHOD 07/01/2025 4:19 AM EDT [facility] Blood Venous blood specimen / Unknown Venipuncture / Unknown 07/01/2025 3:44 AM EDT 07/01/2025 4:[address] [facility] LAB BLOOD ORDERABLES Final R [facility] Performing Organization Address City/[facility] Co de Phone Number [facility] [address] [place] [address], [place] [phone] * (ABNORMAL) Calcium, ionized (07/01/2025 3:44 AM EDT) Calcium Ionized 4.44(L) 4.50 - 5.30 mg/dL 07/01/2025 4:03 AM EDT [facility] Blood Venous blood specimen / Unknown Venipuncture / Unknown 07/01/2025 3:44 AM EDT 07/01/2025 4:00 AM EDT us Parveen Warner DO LAB BLOOD ORDERABLES Final R esult [facility] [address] [place] [address], * (ABNORMAL) Basic metabolic panel (07/01/2025 3:44 AM EDT) Sodium 134 133 - 145 mmol/L LAB CHEMISTRY METHOD 07/01/2025 4:21 AM [facility] Potassium 4.7 3.5 - 5.5 mmol/L LAB CHEMISTRY METHOD 07/01/2025 4:21 AM [facility] Chloride 97 96 - 110 mmol/L LAB CHEMISTRY METHOD 07/01/2025 4:21 AM [facility] CO2 36(H) 21 - 32 mmol/L LAB CHEMISTRY METHOD 07/01/2025 4:21 AM [facility] Anion Gap 1(L) 3 - 11 LAB CHEMISTRY METHOD 07/01/2025 4:21 AM [facility] Glucose 83 70 - 100 mg/dL LAB CHEMISTRY METHOD 07/01/2025 4:21 AM [facility] BUN 10 5 - 25 mg/dL LAB CHEMISTRY METHOD 07/01/2025 4:21 AM [facility] Creatinine <0.15(L) 0.50 - 1.10 mg/dL LAB CHEMISTRY METHOD 07/01/2025 4:21 AM [facility] eGFR LAB CHEMISTRY METHOD 07/01/2025 4:21 AM [facility] Comment:Creatinine above or below reportable range; unable to calculate eGFR. BUN/Creatinine Ratio LAB CHEMISTRY METHOD 07/01/2025 4:21 AM EDT [facility] Comment:Creatinine and/or Ur ea Nitrogen (BUN) above or below reportable range; unable to calculate BUN/Creatinine Ratio. Calcium 8.2(L) 8.5 - 10.5 mg/dL LAB CHEMISTRY METHOD 07/01/2025 4:21 AM EDT [facility] Blood Venous blood specimen / Unknown Venipuncture / Unknown 07/01/2025 3:44 AM EDT 07/01/2025 4:00 AM EDT us Parveen Warner DO LAB BLOOD ORDERABLES Final R esult [facility] [address] [place] [address], [place] [phone] * (ABNORMAL) Manual differential (06/30/2025 4:17 AM EDT) Neutrophils % 80.0 % LAB HEMETOLOGY METHOD 06/30/2025 5:22 AM [facility] Bands % 2.0 % LAB HEMETOLOGY METHOD 06/30/2025 5:22 AM [facility] Lymphocytes % 17.0 % LAB HEMETOLOGY METHOD 06/30/2025 5:22 AM [facility] Monocytes % 1.0 % LAB HEMETOLOGY METHOD 06/30/2025 5:22 AM [facility] Eosinophils % 0.0 % LAB HEMETOLOGY METHOD 06/30/2025 5:22 AM [facility] Basophils % 0.0 % LAB HEMETOLOGY METHOD 06/30/2025 5:22 AM [facility] Neutrophils Absolute Manual 3.52 1.50 - 7.00 K/mcL LAB HEMETOLOGY METHOD 06/30/2025 5:22 AM T [facility] Bands Absolute Manual 0.09(H) 0.00 - 0.00 K/mcL LAB HEMETOLOGY METHOD 06/30/2025 5:22 AM EDT [facility] Lymphocytes Absolute 0.75(L) 1.00 - 5.00 K/mcL LAB HEMETOLOGY METHOD 06/30/2025 5:22 AM EDT [facility] Monocytes Absolute Manual 0.04(L) 0.20 - 1.00 K/mcL LAB HEMETOLOGY METHOD 06/30/2025 5:22 AM EDT [facility] Eosinophils Absolute Manual 0.00 0.00 - 0.50 K/mcL LAB HEMETOLOGY METHOD 06/30/2025 5:22 AM EDT [facility] Basophils Absolute Manual 0.00 0.00 - 0.20 K/mcL LAB HEMETOLOGY METHOD 06/30/2025 5:22 AM EDT [facility] Rbc Morphology Present( A) Consistent with indices, Normal for [place] LAB HEMETOLOGY METHOD 06/30/2025 5:22 AM EDT [facility] Comment:RBC: Morphology agre es with CBC Platelet Morphology - [facility] See Note(A) Normal LAB HEMETOLOGY METHOD 06/30/2025 5:22 AM EDT [facility] Comment:PLT: Normal Blood Venous blood specimen / Unknown Venipuncture / Unknown 06/30/2025 4:17 AM EDT 06/30/2025 4:36 AM EDT us Parveen Warner DO LAB BLOOD ORDERABLES Final R esult [facility] [address] [place] [address], * (ABNORMAL) CBC auto differential (06/30/2025 4:17 AM EDT) WBC 4.4(L) 4.8 - 10.8 K/mcL LAB HEMETOLOGY METHOD 06/30/2025 5:22 AM [facility] RBC 3.20(L) 3.80 - 4.80 M/mcL LAB HEMETOLOGY METHOD 06/30/2025 5:22 AM [facility] Hemoglobin 7.0(L) 11.5 - 16.0 g/dL LAB HEMETOLOGY METHOD 06/30/2025 5:22 AM [facility] Hematocrit 25.0(L) 35.0 - 47.0 % LAB HEMETOLOGY METHOD 06/30/2025 5:22 AM [facility] MCV 78.1(L) 79.0 - 98.0 FL LAB HEMETOLOGY METHOD 06/30/2025 5:22 AM [facility] MCH 21.9(L) 27.0 - 32.0 pcg LAB HEMETOLOGY METHOD 06/30/2025 5:22 AM [facility] MCHC 28.0(L) 32.0 - 37.0 g/dL LAB HEMETOLOGY METHOD 06/30/2025 5:22 AM [facility] RDW 19.3(H) 11.0 - 15.0 % LAB HEMETOLOGY METHOD 06/30/2025 5:22 AM [facility] Platelets 297 130 - 400 K/mcL LAB HEMETOLOGY METHOD 06/30/2025 5:22 AM [facility] MPV 10.5 7.0 - 11.0 FL LAB HEMETOLOGY METHOD 06/30/2025 5:22 AM [facility] NRBC 0.0 <1.0 % LAB HEMETOLOGY METHOD 06/30/2025 5:22 AM [facility] NRBC Absolute 0.00 <0.10 K/mcL LAB HEMETOLOGY METHOD 06/30/2025 5:22 AM [facility] Blood Venous blood specimen / Unknown Venipuncture / Unknown 06/30/2025 4:17 AM EDT 06/30/2025 4:36 AM EDT Parveen Warner DO LAB BLOOD ORDERABLES Final R esult Performing Organization Address [facility] Co de Phone Number [facility] [address] [place] [address], [place] [phone] * (ABNORMAL) Procalcitonin (06/30/2025 4:17 AM EDT) Procalcitonin 0.18(H) <=0.16 ng/mL LAB CHEMISTRY METHOD 06/30/2025 9:12 AM EDT [facility] Blood Venous blood specimen / Unknown Venipuncture / Unknown 06/30/2025 4:17 AM EDT 06/30/2025 4:36 AM EDT Narrative [facility] - 06/30/2025 9:12 AM EDT Procalcitonin > 2.00 ng/ml: Procalcitonin Levels above [...] any concentrations <2.0 ng/mL are obtained. Parveen Atkinsveronica LAB BLOOD ORDERABLES Final R esult Performing Organization Address [facility] Co de Phone Number [facility] [address] [place] [address], * Phosphorus (06/30/2025 4:17 AM EDT) [facility] Phosphorus 4.0 2.5 - 4.5 mg/dL LAB CHEMISTRY METHOD 06/30/2025 5:05 AM EDT [facility] Blood Venous blood specimen / Unknown Venipuncture / Unknown 06/30/2025 4:17 AM EDT 06/30/2025 4:36 AM EDT Parveen Warner LAB BLOOD ORDERABLES Final R esult Performing Organization Address [facility] de Phone Number [facility] [address] [place] [address], * Magnesium (06/30/2025 4:17 AM EDT) [facility] Magnesium 1.9 1.9 - 2.6 mg/dL LAB CHEMISTRY METHOD 06/30/2025 5:05 AM EDT [facility] Blood Venous blood specimen / Unknown Venipuncture / Unknown 06/30/2025 4:17 AM EDT 06/30/2025 4:36 AM EDT Parveen Warner DO LAB BLOOD ORDERABLES Final R esult Performing Organization Address City/[facility]/ZIP Co de Phone Number [facility] [address] [place] [address], [place] [phone] * (ABNORMAL) Calcium, ionized (06/30/2025 4:17 AM EDT) [facility] Calcium Ionized 4.47(L) 4.50 - 5.30 mg/dL 06/30/2025 4:46 AM EDT [facility] Blood Venous blood specimen / Unknown Venipuncture / Unknown 06/30/2025 4:17 AM EDT 06/30/2025 4:36 AM EDT us Parveen Warner DO LAB BLOOD ORDERABLES Final R esult [facility] [address] [place] [address], [place] [phone] * (ABNORMAL) Basic metabolic panel (06/30/2025 4:17 AM EDT) Sodium 135 133 - 145 mmol/L LAB CHEMISTRY METHOD 06/30/2025 5:05 AM [facility] Potassium 4.5 3.5 - 5.5 mmol/L LAB CHEMISTRY METHOD 06/30/2025 5:05 AM [facility] Chloride 98 96 - 110 mmol/L LAB CHEMISTRY METHOD 06/30/2025 5:05 AM [facility] CO2 34(H) 21 - 32 mmol/L LAB CHEMISTRY METHOD 06/30/2025 5:05 AM [facility] Anion Gap 3 3 - 11 LAB CHEMISTRY METHOD 06/30/2025 5:05 AM [facility] Glucose 92 70 - 100 mg/dL LAB CHEMISTRY METHOD 06/30/2025 5:05 AM [facility] BUN 9 5 - 25 mg/dL LAB CHEMISTRY METHOD 06/30/2025 5:05 AM [facility] Creatinine 0.21(L) 0.50 - 1.10 mg/dL LAB CHEMISTRY METHOD 06/30/2025 5:05 AM [facility] eGFR 158 >=60 mL/min/1. 73m2 LAB CHEMISTRY METHOD 06/30/2025 5:05 AM [facility] Comment:Calculation based on the Chronic Kidney Disease Epidemiology Collaboration (CKD-EPI) equation refit without adjustment for race. BUN/Creatinine Ratio 42.9 LAB CHEMISTRY METHOD 06/30/2025 5:05 AM EDT [facility] Calcium 8.3(L) 8.5 - 10.5 mg/dL LAB CHEMISTRY METHOD 06/30/2025 5:05 AM EDT [facility] Blood Venous blood specimen / Unknown Venipuncture / Unknown 06/30/2025 4:17 AM EDT 06/30/2025 4:36 AM EDT us Parveen Warner DO LAB BLOOD ORDERABLES Final R esult [facility] [address] [place] [address], [place] [phone] * XR Chest 1 View (06/29/2025 6:04 AM EDT) Anatomical Region Laterality Modality Body Radiographic Liliana ging 06/29/2025 8:26 AM EDT Impressions 06/29/2025 8:27 AM EDT Impression: 1. Satisfactory positioning of support tubes and line. 2. No significant change in bilateral pulmonary infiltrates. [place] ([id number]) -------- FINAL REPORT -------- Dictated By: Elissa Reynolds Dictated Date: 06/29/2025 08:26 ET Assigned Physician: Elissa Reynolds Reviewed and Electronically Signed By: Elissa Reynolds Signed Date: 06/29/2025 08:27 ET Workstation ID: [id number] Transcribed By: Self Edit Transcribed Date: 06/29/2025 08:26 ET Narrative 06/29/2025 8:27 AM EDT History: Pneumonia, unresolved. Comparison: 06/28/25 Findings: Portable semiupright AP chest at 5:26 AM. Tracheostomy tube and left subclavian venous catheter remain well-positioned. The lung volumes are low. The cardiac silhouette remains normal in size. Persistent airspace consolidation is seen in the left retrocardiac area, partially silhouetting the diaphragm, unchanged. Patchy nonspecific opacity in the right perihilar area and right base is without significant change. The pulmonary vascularity is within normal limits. Procedure Note Elissa Reynolds MD - 06/29/2025 History: Pneumonia, unresolved. Comparison: 06/28/25 Findings: Portable semiupright AP chest at 5:26 AM. Tracheostomy tube and leftsubclavian venous catheter remain well-positioned. The lung volumes arelow. The cardiac silhouette remains normal in size. Persistent airspaceconsolidation is seen in the left retrocardiac area, partiallysilhouetting the diaphragm, unchanged. Patchy nonspecific opacity in theright perihilar area and right base is without significant change. Thepulmonary vascularity is within normal limits. IMPRESSION: Impression: 1. Satisfactory positioning of support tubes and line. 2. No significant change in bilateral pulmonary infiltrates. Telerad PA ([id number]) -------- FINAL REPORT -------- Dictated By: Elissa Reynolds Dictated Date: 06/29/2025 08:26 ET Assigned Physician: Elissa Reynolds Reviewed and Electronically Signed By: Elissa Reynolds Signed Date: 06/29/2025 08:27 ET Workstation ID: [id number] Transcribed By: Self Edit Transcribed Date: 06/29/2025 08:26 ET us Araseli Morton MD IMG XR PROCEDURES Final Resul t * (ABNORMAL) Manual differential (06/29/2025 3:29 AM EDT) Neutrophils % 79.0 % LAB HEMETOLOGY METHOD 06/29/2025 4:49 AM EDT [facility] Lymphocytes % 19.0 % LAB HEMETOLOGY METHOD 06/29/2025 4:49 AM EDT [facility] Monocytes % 1.0 % LAB HEMETOLOGY METHOD 06/29/2025 4:49 AM EDT [facility] Eosinophils % 0.0 % LAB HEMETOLOGY METHOD 06/29/2025 4:49 AM EDT [facility] Basophils % 0.0 % LAB HEMETOLOGY METHOD 06/29/2025 4:49 AM EDT [facility] Neutrophils Absolute Manual 2.77 1.50 - 7.00 K/mcL LAB HEMETOLOGY METHOD 06/29/2025 4:49 AM EDT [facility] Lymphocytes Absolute 0.67(L) 1.00 - 5.00 K/mcL LAB HEMETOLOGY METHOD 06/29/2025 4:49 AM EDT [facility] Monocytes Absolute Manual 0.04(L) 0.20 - 1.00 K/mcL LAB HEMETOLOGY METHOD 06/29/2025 4:49 AM EDT [facility] Eosinophils Absolute Manual 0.00 0.00 - 0.50 K/mcL LAB HEMETOLOGY METHOD 06/29[facility]2025 [facility] Basophils Absolute Manual 0.00 0.00 - 0.20 K/mcL LAB HEMETOLOGY METHOD 06/29/2025 4:49 AM EDT [facility] Rbc Morphology Present( A) Consistent with indices, Normal for [place] LAB HEMETOLOGY METHOD 06/29/2025 4:49 AM EDT [facility] Comment:RBC: Morphology agre es with CBC Platelet Morphology - WAM See Note(A) Normal LAB HEMETOLOGY METHOD 06/29/2025 4:49 AM EDT [facility] Comment:PLT: Large platelets seen Ovalocytes Present 5 - 10%(A) (none) LAB HEMETOLOGY METHOD 06/29/2025 4:49 AM EDT [facility] Blood Blood sample taken from central line / Unknown Existing Catheter / Unknown 06/29/2025 3:29 AM EDT 06/29/2025 3:47 AM EDT us Araseli Morton MD LAB BLOOD ORDERABLES Final Re sult [facility] [address] [place] [address], [place] [phone] * (ABNORMAL) Venous blood gas (06/29/2025 3:29 AM EDT) pH, Justino 7.40 7.32 - 7.42 pH 06/29/2025 3:48 AM EDT [facility] pCO2, [place] 57(H) 41 - 51 mmHg 06/29/2025 3:48 AM EDT [facility] pO2, Justino 40 25 - 40 mmHg 06/29/2025 3:48 AM EDT [facility] HCO3, Venous 31.7(H) 22.0 - 26.0 mmol/L 06/29/2025 3:48 AM EDT [facility] O2 Sat, Justino 68.1 % 06/29/2025 3:48 AM EDT [facility] Base Excess, [place] 9.3(H) -2.0 - 2.0 mmol/L 06/29/2025 3:48 AM EDT [facility] Blood Venous blood specimen / Unknown Existing Catheter / Unknown 06/29/2025 3:29 AM EDT 06/29/2025 3:45 AM EDT us Araseli Morton MD LAB BLOOD ORDERABLES Final Re sult [facility] [address] [place] [address], * (ABNORMAL) CBC auto differential (06/29/2025 3:29 AM EDT) Pathologist [facility] WBC 3.5(L) 4.8 - 10.8 K/[facility] LAB HEMETOLOGY METHOD 06/29/2025 4:49 AM EDT [facility] RBC 3.30(L) 3.80 - 4.80 M/[facility] LAB HEMETOLOGY METHOD 06/29/2025 4:49 AM EDT [facility] Hemoglobin 7.2(L) 11.5 - 16.0 g/dL LAB HEMETOLOGY METHOD 06/29/2025 4:49 AM [facility] Hematocrit 25.8(L) 35.0 - 47.0 % LAB HEMETOLOGY METHOD 06/29/2025 4:49 AM [facility] MCV 78.9(L) 79.0 - 98.0 FL LAB HEMETOLOGY METHOD 06/29/2025 4:49 AM [facility] MCH 22.0(L) 27.0 - 32.0 pcg LAB HEMETOLOGY METHOD 06/29/2025 4:49 AM [facility] MCHC 27.9(L) 32.0 - 37.0 g/dL LAB HEMETOLOGY METHOD 06/29/2025 4:49 AM [facility] RDW 19.0(H) 11.0 - 15.0 % LAB HEMETOLOGY METHOD 06/29/2025 4:49 AM [facility] Platelets 270 130 - 400 K/mcL LAB HEMETOLOGY METHOD 06/29/2025 4:49 AM [facility] MPV 10.5 7.0 - 11.0 FL LAB HEMETOLOGY METHOD 06/29/2025 4:49 AM [facility] NRBC 0.0 <1.0 % LAB HEMETOLOGY METHOD 06/29/2025 4:49 AM [facility] NRBC Absolute 0.00 <0.10 K/mcL LAB HEMETOLOGY METHOD 06/29/2025 4:49 AM [facility] Blood Blood sample taken from central line / Unknown Existing Catheter / Unknown 06/29/2025 3:29 AM EDT 06/29/2025 3:47 AM EDT us Araseli Morton MD LAB BLOOD ORDERABLES Final Re sult [facility] [address] [place] [address], * (ABNORMAL) Comprehensive metabolic panel (06/29/2025 3:29 AM EDT) Sodium 134 133 - 145 mmol/L LAB CHEMISTRY METHOD 06/29/2025 4:21 AM [facility] Potassium 4.4 3.5 - 5.5 mmol/L LAB CHEMISTRY METHOD 06/29/2025 4:21 AM [facility] Chloride 97 96 - 110 mmol/L LAB CHEMISTRY METHOD 06/29/2025 4:21 AM [facility] CO2 35(H) 21 - 32 mmol/L LAB CHEMISTRY METHOD 06/29/2025 4:21 AM [facility] Anion Gap 2(L) 3 - 11 LAB CHEMISTRY METHOD 06/29/2025 4:21 AM [facility] Glucose 87 70 - 100 mg/dL LAB CHEMISTRY METHOD 06/29/2025 4:21 AM [facility] BUN 10 5 - 25 mg/dL LAB CHEMISTRY METHOD 06/29/2025 4:21 AM [facility] Creatinine 0.17(L) 0.50 - 1.10 mg/dL LAB CHEMISTRY METHOD 06/29/2025 4:21 AM [facility] eGFR 166 >=60 mL/min/1. 73m2 LAB CHEMISTRY METHOD 06/29/2025 4:21 AM [facility] Comment:Calculation based on the Chronic Kidney Disease Epidemiology Collaboration (CKD-EPI) equation refit without adjustment for race. BUN/Creatinine Ratio 58.8 LAB CHEMISTRY METHOD 06/29/2025 4:21 AM [facility] Calcium 8.2(L) 8.5 - 10.5 mg/dL LAB CHEMISTRY METHOD 06/29/2025 4:21 AM [facility] AST (SGOT) 15 10 - 42 unit/L LAB CHEMISTRY METHOD 06/29/2025 4:21 AM [facility] ALT (SGPT) 6(L) 10 - 60 unit/L LAB CHEMISTRY METHOD 06/29/2025 4:21 AM [facility] Alkaline Phosphatase 53 42 - 121 unit/L LAB CHEMISTRY METHOD 06/29/2025 4:21 AM [facility] Total Protein 6.8 6.0 - 8.0 g/dL LAB CHEMISTRY METHOD 06/29/2025 4:21 AM [facility] Albumin 2.0(L) 3.2 - 5.0 g/dL LAB CHEMISTRY METHOD 06/29/2025 4:21 AM [facility] Total Bilirubin 0.2 0.0 - 1.4 mg/dL LAB CHEMISTRY METHOD 06/29/2025 4:21 AM [facility] Blood Blood sample taken from central line / Unknown Existing Catheter / Unknown 06/29/2025 3:29 AM EDT 06/29/2025 3:47 AM EDT us Araseli Morton MD LAB BLOOD ORDERABLES Final Re sult [facility] [address] [place] [address], * Phosphorus (06/29/2025 3:29 AM EDT) Phosphorus 3.5 2.5 - 4.5 mg/dL LAB CHEMISTRY METHOD 06/29/2025 4:12 AM EDT [facility] Blood Blood sample taken from central line / Unknown Existing Catheter / Unknown 06/29/2025 3:29 AM EDT 06/29/2025 3:47 AM EDT us Araseli Morton MD LAB BLOOD ORDERABLES Final Re sult [facility] [address] [place] [address], [place] [phone] * (ABNORMAL) Magnesium (06/29/2025 3:29 AM EDT) Magnesium 1.8(L) 1.9 - 2.6 mg/dL LAB CHEMISTRY METHOD 06/29/2025 4:12 AM EDT [facility] Blood Blood sample taken from central line / Unknown Existing Catheter / Unknown 06/29/2025 3:29 AM EDT 06/29/2025 3:47 AM EDT Araseli Morton MD LAB BLOOD ORDERABLES Final Re sult Performing Organization Address [facility]/ZIP Co de Phone Number [facility] [address] [place] [address], [place] [phone] * (ABNORMAL) Calcium, ionized (06/29/2025 3:29 AM EDT) Calcium Ionized 4.45(L) 4.50 - 5.30 mg/dL 06/29/2025 3:55 AM EDT [facility] Blood Blood sample taken from central line / Unknown Existing Catheter / Unknown 06/29/2025 3:29 AM EDT 06/29/2025 3:47 AM EDT Araseli Morton MD LAB BLOOD ORDERABLES Final Re sult [facility] [address] [place] [address], [place] [phone] * Lactate (06/29/2025 3:29 AM EDT) Lactate 0.5 0.4 - 2.0 mmol/L LAB CHEMISTRY METHOD 06/29/2025 4:14 AM EDT [facility] Blood Blood sample taken from central line / Unknown Existing Catheter / Unknown 06/29/2025 3:29 AM EDT 06/29/2025 3:46 AM EDT us Araseli Morton MD LAB BLOOD ORDERABLES Final Re sult [facility] [address] [place] [address], * XR Chest 1 View (06/28/2025 5:29 AM EDT) Anatomical Region Laterality Modality Body Radiographic Liliana ging 06/28/2025 8:18 AM EDT Impressions 06/28/2025 8:19 AM EDT Improved aeration of the right base. Otherwise unchanged exam. -------- FINAL REPORT -------- Dictated By: Robert Richardson Dictated Date: 06/28/2025 08:18 ET Assigned Physician: Robert Richardson Reviewed and Electronically Signed By: Robert Richardson Signed Date: 06/28/2025 08:19 ET Workstation ID: [id number] Transcribed By: Self Edit Transcribed Date: 06/28/2025 08:18 ET Narrative 06/28/2025 8:19 AM EDT PROCEDURE: AP chest radiograph. HISTORY: pneumonia. COMPARISON: 06/27/2025. FINDINGS: Stable well-positioned tracheostomy tube. Unchanged left subclavian central venous catheter with the tip in the SVC. Hypoventilatory inspiratory effort. Stable cardiomediastinal contours. Retrocardiac opacity at the medial left base with air bronchograms appears similar to the previous study. Patchy nonspecific opacity at the right base which may represent atelectasis. There is improved aeration in this area with better visualization of the hemidiaphragm. No pneumothorax. Thoracic dextroscoliosis. Degenerative changes of the shoulders. Procedure Note Robert Richardson MD - 06/28/2025 PROCEDURE: AP chest radiograph. HISTORY: pneumonia. COMPARISON: 06/27/2025. FINDINGS: Stable well-positioned tracheostomy tube. Unchanged left subclaviancentral venous catheter with the tip in the SVC. Hypoventilatoryinspiratory effort. Stable cardiomediastinal contours. Retrocardiacopacity at the medial left base with air bronchograms appears similar tothe previous study. Patchy nonspecific opacity at the right base whichmay represent atelectasis. There is improved aeration in this area withbetter visualization of the hemidiaphragm. No pneumothorax. Thoracicdextroscoliosis. Degenerative changes of the shoulders. IMPRESSION: Improved aeration of the right base. Otherwise unchanged exam. -------- FINAL REPORT -------- Dictated By: Robert Richardson Dictated Date: 06/28/2025 08:18 ET Assigned Physician: Robert Richardson Reviewed and Electronically Signed By: Robert Richardson Signed Date: 06/28/2025 08:19 ET Workstation ID: [id number] Transcribed By: Self Edit Transcribed Date: 06/28/2025 08:18 ET us Jada Grissom MD IMG XR PROCEDURES Final Resul t * (ABNORMAL) CBC auto differential (06/28/2025 4:22 AM EDT) WBC 3.6(L) 4.8 - 10.8 K/mcL LAB HEMETOLOGY METHOD 06/28/2025 4:48 AM EDT [facility] RBC 3.20(L) 3.80 - 4.80 M/mcL LAB HEMETOLOGY METHOD 06/28/2025 4:48 AM EDT [facility] Hemoglobin 7.0(L) 11.5 - 16.0 g/dL LAB HEMETOLOGY METHOD 06/28/2025 4:48 AM EDT [facility] Hematocrit 25.5(L) 35.0 - 47.0 % LAB HEMETOLOGY METHOD 06/28/2025 4:48 AM EDT [facility] MCV 78.9(L) 79.0 - 98.0 FL LAB HEMETOLOGY METHOD 06/28/2025 4:48 AM [facility] MCH 21.7(L) 27.0 - 32.0 pcg LAB HEMETOLOGY METHOD 06/28/2025 4:48 AM [facility] MCHC 27.5(L) 32.0 - 37.0 g/dL LAB HEMETOLOGY METHOD 06/28/2025 4:48 AM [facility] RDW 19.4(H) 11.0 - 15.0 % LAB HEMETOLOGY METHOD 06/28/2025 4:48 AM [facility] Platelets 261 130 - 400 K/mcL LAB HEMETOLOGY METHOD 06/28/2025 4:48 AM [facility] MPV 10.6 7.0 - 11.0 FL LAB HEMETOLOGY METHOD 06/28/2025 4:48 AM [facility] NRBC 0.0 <1.0 % LAB HEMETOLOGY METHOD 06/28/2025 4:48 AM [facility] NRBC Absolute 0.00 <0.10 K/mcL LAB HEMETOLOGY METHOD 06/28/2025 4:48 AM [facility] Neutrophils Relative 73.4 % LAB HEMETOLOGY METHOD 06/28/2025 4:48 AM [facility] Lymphocytes Relative 22.4 % LAB HEMETOLOGY METHOD 06/28/2025 4:48 AM [facility] Monocytes Relative 2.8 % LAB HEMETOLOGY METHOD 06/28/2025 4:48 AM [facility] Eosinophils Relative 1.1 % LAB HEMETOLOGY METHOD 06/28/2025 4:48 AM [facility] Basophils Relative 0.0 % LAB HEMETOLOGY METHOD 06/28/2025 4:48 AM EDT [facility] Immature Granulocytes Relative 0.3 % LAB HEMETOLOGY METHOD 06/28/2025 4:48 AM EDT [facility] Neutrophils Absolute 2.66 1.50 - 7.00 K/[facility] HEMETOLOGY METHOD 06/28/2025 4:48 AM EDT [facility] Lymphocytes Absolute 0.81(L) 1.00 - 5.00 K/[facility] HEMETOLOGY METHOD 06/28/2025 4:48 AM EDT [facility] Monocytes Absolute 0.10(L) 0.20 - 1.00 K/mcL LAB HEMETOLOGY METHOD 06/28/2025 4:48 AM EDT [facility] Eosinophils Absolute 0.04 0.00 - 0.50 K/[facility] HEMETOLOGY METHOD 06/28/2025 4:48 AM EDT [facility] Basophils Absolute 0.00 0.00 - 0.20 K/[facility] HEMETOLOGY METHOD 06/28/2025 4:48 AM EDT [facility] Immature Granulocytes Absolute 0.01 0.00 - 0.03 K/mcL LAB HEMETOLOGY METHOD 06/28/2025 4:48 AM [facility] Blood Blood sample taken from central line / Unknown Existing Catheter / Unknown 06/28/2025 4:22 AM EDT 06/28/2025 4:42 AM EDT us Jada Grissom MD LAB BLOOD ORDERABLES Final Re sult [facility] [address] [place] [address], * Phosphorus (06/28/2025 4:22 AM EDT) Phosphorus 3.4 2.5 - 4.5 mg/dL LAB CHEMISTRY METHOD 06/28/2025 5:11 AM EDT [facility] Blood Venous blood specimen / Unknown Existing Catheter / Unknown 06/28/2025 4:22 AM EDT 06/28/2025 4:42 AM EDT Jada Grissom MD LAB BLOOD ORDERABLES Final Re sult Performing Organization Address [facility]/ZIP Co de Phone Number [facility] [address] [place] [address], [place] [phone] * Magnesium (06/28/2025 4:22 AM EDT) Magnesium 2.0 1.9 - 2.6 mg/dL LAB CHEMISTRY METHOD 06/28/2025 5:11 AM EDT [facility] Blood Venous blood specimen / Unknown Existing Catheter / Unknown 06/28/2025 4:22 AM EDT 06/28/2025 4:42 AM EDT Jada Grissom MD LAB BLOOD ORDERABLES Final Re sult Performing Organization Address [facility]/ZIP Co de Phone Number [facility] [address] [place] [address], [place] [phone] * Lactate (06/28/2025 4:22 AM EDT) Lactate 0.8 0.4 - 2.0 mmol/L LAB CHEMISTRY METHOD 06/28/2025 5:09 AM EDT [facility] Blood Blood sample taken from central line / Unknown Existing Catheter / Unknown 06/28/2025 4:22 AM EDT 06/28/2025 4:41 AM EDT Jada Grissom MD LAB BLOOD ORDERABLES Final Re sult Performing Organization Address City/[facility]/ZIP Co de Phone Number [facility] [address] [place] [address], [place] [phone] * (ABNORMAL) Central line blood gas (06/28/2025 4:22 AM EDT) pH Central Line 7.39 7.32 - 7.43 06/28/2025 4:46 AM EDT [facility] pCO2 Central Line 60 40 - 60 mmHg 06/28/2025 4:46 AM EDT [facility] pO2 Central Line 45 30 - 55 mmHg 06/28/2025 4:46 AM EDT [facility] HCO3 Central Line 33(H) 22 - 26 mmol/L 06/28/2025 4:46 AM EDT [facility] O2 Saturation, Central Line 78 % 06/28/2025 4:46 AM EDT [facility] Base Excess, Central Line 10(H) -2 - 2 mmol/L 06/28/2025 4:46 AM EDT [facility] Blood Blood sample taken from central line / Unknown Existing Catheter / Unknown 06/28/2025 4:22 AM EDT 06/28/2025 4:40 AM EDT us Jada Grissom MD LAB BLOOD ORDERABLES Final Re sult Performing Organization Address [facility]/State/ZIP Co de Phone Number [facility] [address] [place] [address], * (ABNORMAL) Calcium, ionized (06/28/2025 4:22 AM EDT) Calcium Ionized 4.38(L) 4.50 - 5.30 mg/dL 06/28/2025 4:56 AM EDT [facility] Blood Blood sample taken from central line / Unknown Existing Catheter / Unknown 06/28/2025 4:22 AM EDT 06/28/2025 4:42 AM EDT us Jada Grissom MD LAB BLOOD ORDERABLES Final Re sult [facility] [address] [place] [address], * (ABNORMAL) Basic metabolic panel (06/28/2025 4:22 AM EDT) Sodium 137 133 - 145 mmol/L LAB CHEMISTRY METHOD 06/28/2025 5:23 AM [facility] Potassium 4.6 3.5 - 5.5 mmol/L LAB CHEMISTRY METHOD 06/28/2025 5:23 AM [facility] Chloride 99 96 - 110 mmol/L LAB CHEMISTRY METHOD 06/28/2025 5:23 AM [facility] CO2 36(H) 21 - 32 mmol/L LAB CHEMISTRY METHOD 06/28/2025 5:23 AM [facility] Anion Gap 2(L) 3 - 11 LAB CHEMISTRY METHOD 06/28/2025 5:23 AM [facility] Glucose 97 70 - 100 mg/dL LAB CHEMISTRY METHOD 06/28/2025 5:23 AM [facility] BUN 11 5 - 25 mg/dL LAB CHEMISTRY METHOD 06/28/2025 5:23 AM [facility] Creatinine 0.22(L) 0.50 - 1.10 mg/dL LAB CHEMISTRY METHOD 06/28/2025 5:23 AM [facility] eGFR 156 >=60 mL/min/1. 73m2 LAB CHEMISTRY METHOD 06/28/2025 5:23 AM [facility] Comment:Calculation based on the Chronic Kidney Disease Epidemiology Collaboration (CKD-EPI) equation refit without adjustment for race. BUN/Creatinine Ratio 50.0 LAB CHEMISTRY METHOD 06/28/2025 5:23 AM [facility] Calcium 7.9(L) 8.5 - 10.5 mg/dL LAB CHEMISTRY METHOD 06/28/2025 5:23 AM EDT [facility] Blood Venous blood specimen / Unknown Existing Catheter / Unknown 06/28/2025 4:22 AM EDT 06/28/2025 4:42 AM EDT us Jada Grissom MD LAB BLOOD ORDERABLES Final Re sult [facility] [address] [place] [address], * XR Chest 1 View (06/27/2025 5:46 AM EDT) Anatomical Region Laterality Modality Body Radiographic Liliana ging 06/27/2025 8:26 AM EDT Impressions 06/27/2025 8:29 AM EDT Impression: 1. Satisfactory positioning of support tubes and line. 2. No significant change in left retrocardiac airspace consolidation. 3. Similar groundglass opacity at the right base, possibly a combination of pleural fluid and airspace disease. [place]ad [place] ([id number]) -------- FINAL REPORT -------- Dictated By: Elissa Reynolds Dictated Date: 06/27/2025 08:26 ET Assigned Physician: Elissa Reynolds Reviewed and Electronically Signed By: Elissa Reynolds Signed Date: 06/27/2025 08:29 ET Workstation ID: [id number] Transcribed By: Self Edit Transcribed Date: 06/27/2025 08:26 ET Narrative 06/27/2025 8:29 AM EDT History: Line/tube check. ICU patient. Comparison: 06/24/25, thoracic CTA 06/21/25 Findings: Portable AP semiupright chest at 5:18 AM. A tracheostomy tube remains well-positioned. A left subclavian venous catheter terminates at the level of the SVC, unchanged. The cardiac silhouette remains normal in size. Dense, confluent opacity persists in the left retrocardiac area, partially silhouetting the diaphragm, without significant change. There is hazy groundglass opacity at the right base, partially silhouetting the diaphragm, also unchanged. The pulmonary vascularity is within normal limits. Procedure Note Elissa Reynolds MD - 06/27/2025 History: Line/tube check. ICU patient. Comparison: 06/24/25, thoracic CTA 06/21/25 Findings: Portable AP semiupright chest at 5:18 AM. A tracheostomy tube remains well-positioned. A left subclavian venouscatheter terminates at the level of the SVC, unchanged. The cardiacsilhouette remains normal in size. Dense, confluent opacity persists in the left retrocardiac area, partiallysilhouetting the diaphragm, without significant change. There is hazygroundglass opacity at the right base, partially silhouetting thediaphragm, also unchanged. The pulmonary vascularity is within normallimits. IMPRESSION: Impression: 1. Satisfactory positioning of support tubes and line. 2. No significant change in left retrocardiac airspace consolidation. 3. Similar groundglass opacity at the right base, possibly a combinationof pleural fluid and airspace disease. Telerad PA ([id number]) -------- FINAL REPORT -------- Dictated By: Elissa Reynolds Dictated Date: 06/27/2025 08:26 ET Assigned Physician: Elissa Reynolds Reviewed and Electronically Signed By: Elissa Reynolds Signed Date: 06/27/2025 08:29 ET Workstation ID: [id number] Transcribed By: Self Edit Transcribed Date: 06/27/2025 08:26 ET us Jada Grissom MD IMG XR PROCEDURES Final Resul t * (ABNORMAL) CBC auto differential (06/27/2025 4:30 AM EDT) WBC 3.6(L) 4.8 - 10.8 K/mcL LAB HEMETOLOGY METHOD 06/27/2025 5:05 AM EDT [facility] RBC 3.30(L) 3.80 - 4.80 M/mcL LAB HEMETOLOGY METHOD 06/27/2025 5:05 AM EDT [facility] Hemoglobin 7.1(L) 11.5 - 16.0 g/dL LAB HEMETOLOGY METHOD 06/27/2025 5:05 AM [facility] Hematocrit 25.7(L) 35.0 - 47.0 % LAB HEMETOLOGY METHOD 06/27/2025 5:05 AM [facility] MCV 79.1 79.0 - 98.0 FL LAB HEMETOLOGY METHOD 06/27/2025 5:05 AM [facility] MCH 21.8(L) 27.0 - 32.0 pcg LAB HEMETOLOGY METHOD 06/27/2025 5:05 AM [facility] MCHC 27.6(L) 32.0 - 37.0 g/dL LAB HEMETOLOGY METHOD 06/27/2025 5:05 AM [facility] RDW 19.1(H) 11.0 - 15.0 % LAB HEMETOLOGY METHOD 06/27/2025 5:05 AM [facility] Platelets 253 130 - 400 K/mcL LAB HEMETOLOGY METHOD 06/27/2025 5:05 AM [facility] LAB MPV 10.0 7.0 - 11.0 FL LAB HEMETOLOGY METHOD 06/27/2025 5:05 AM [facility] NRBC 0.0 <1.0 % LAB HEMETOLOGY METHOD 06/27/2025 5:05 AM [facility] NRBC Absolute 0.00 <0.10 K/mcL LAB HEMETOLOGY METHOD 06/27/2025 5:05 AM [facility] Neutrophils Relative 71.1 % LAB HEMETOLOGY METHOD 06/27/2025 5:05 AM [facility] Lymphocytes Relative 24.6 % LAB HEMETOLOGY METHOD 06/27/2025 5:05 AM [facility] Monocytes Relative 3.1 % LAB HEMETOLOGY METHOD 06/27/2025 5:05 AM EDT [facility] Eosinophils Relative 0.6 % LAB HEMETOLOGY METHOD 06/27/2025 5:05 AM EDT [facility] Basophils Relative 0.3 % LAB HEMETOLOGY METHOD 06/27/2025 5:05 AM EDT [facility] Immature Granulocytes Relative 0.3 % LAB HEMETOLOGY METHOD 06/27/2025 5:05 AM EDT [facility] Neutrophils Absolute 2.54 1.50 - 7.00 K/mcL LAB HEMETOLOGY METHOD 06/27/2025 5:05 AM EDT [facility] Lymphocytes Absolute 0.88(L) 1.00 - 5.00 K/mcL LAB HEMETOLOGY METHOD [facility]25 [facility] Monocytes Absolute 0.11(L) 0.20 - 1.00 K/mcL LAB HEMETOLOGY METHOD 06/27/2025 5:05 AM EDT [facility] Eosinophils Absolute 0.02 0.00 - 0.50 K/mcL LAB HEMETOLOGY METHOD 06/27/2025 5:[facility] Basophils Absolute 0.01 0.00 - 0.20 K/mcL LAB HEMETOLOGY METHOD 06/27/2025 5:05 [facility] Immature Granulocytes Absolute 0.01 0.00 - 0.03 K/mcL LAB HEMETOLOGY METHOD 06/27/2025 5:05 AM [facility] Blood Blood sample taken from central line / Unknown Existing Catheter / Unknown 06/27/2025 4:30 AM EDT 06/27/2025 4:56 AM EDT us Jada Grissom MD LAB BLOOD ORDERABLES Final Re sult [facility] [address] [place] [address], [place] [phone] * Magnesium (06/27/2025 4:30 AM EDT) Pathologist [facility] Magnesium 2.2 1.9 - 2.6 mg/dL LAB CHEMISTRY METHOD 06/27/2025 5:22 AM EDT [facility] Blood Blood sample taken from central line / Unknown Existing Catheter / Unknown 06/27/2025 4:30 AM EDT 06/27/2025 4:56 AM EDT Jada Grissom MD LAB BLOOD ORDERABLES Final Re sult [facility] [address] [place] [address], [place] [phone] * (ABNORMAL) Central line blood gas (06/27/2025 4:30 AM EDT) Pathologist [facility] pH Central Line 7.41 7.32 - 7.43 06/27/2025 4:51 AM EDT [facility] pCO2 Central Line 59 40 - 60 mmHg 06/27/2025 4:51 AM EDT [facility] pO2 Central Line 36 30 - 55 mmHg 06/27/2025 4:51 AM EDT [facility] HCO3 Central Line 33(H) 22 - 26 mmol/L 06/27/2025 4:51 AM EDT [facility] O2 Saturation, Central Line 63 % 06/27/2025 4:51 AM EDT [facility] Base Excess, Central Line 11(H) -2 - 2 mmol/L 06/27/2025 4:51 AM EDT [facility] Blood Blood sample taken from central line / Unknown Existing Catheter / Unknown 06/27/2025 4:30 AM EDT 06/27/2025 4:48 AM EDT us Jada Grissom MD LAB BLOOD ORDERABLES Final Re sult Performing Organization Address City/[facility]/ZIP Co de Phone Number [facility] [address] [place] [address], [place] [phone] * (ABNORMAL) Calcium, ionized (06/27/2025 4:30 AM EDT) Pathologist [facility] Calcium Ionized 4.40(L) 4.50 - 5.30 mg/dL 06/27/2025 5:13 AM EDT [facility] Blood Blood sample taken from central line / Unknown Existing Catheter / Unknown 06/27/2025 4:30 AM EDT 06/27/2025 4:56 AM EDT Jada Grissom MD LAB BLOOD ORDERABLES Final Re sult Performing Organization Address [facility]/ZIP Co de Phone Number [facility] [address] [place] [address], [place] [phone] * (ABNORMAL) Basic metabolic panel (06/27/2025 4:30 AM EDT) Pathologist [facility] Sodium 134 133 - 145 mmol/L LAB CHEMISTRY METHOD 06/27/2025 5:48 AM EDT [facility] Potassium 4.3 3.5 - 5.5 mmol/L LAB CHEMISTRY METHOD 06/27/2025 5:48 AM EDT [facility] Chloride 97 96 - 110 mmol/L LAB CHEMISTRY METHOD 06/27/2025 5:48 AM EDT [facility] CO2 34(H) 21 - 32 mmol/L LAB CHEMISTRY METHOD 06/27/2025 5:48 AM EDT [facility] Anion Gap 3 3 - 11 LAB CHEMISTRY METHOD 06/27/2025 5:48 AM EDT [facility] Glucose 84 70 - 100 mg/dL LAB CHEMISTRY METHOD 06/27/2025 5:48 AM EDT [facility] BUN 10 5 - 25 mg/dL LAB CHEMISTRY METHOD 06/27/2025 5:48 AM EDT [facility] Creatinine 0.17(L) 0.50 - 1.10 mg/dL LAB CHEMISTRY METHOD 06/27/2025 5:48 AM EDT [facility] eGFR 166 >=60 mL/min/1. 73m2 LAB CHEMISTRY METHOD 06/27/2025 5:48 AM EDT [facility] Comment:Calculation based on the Chronic Kidney Disease Epidemiology Collaboration (CKD-EPI) equation refit without adjustment for race. BUN/Creatinine Ratio 58.8 LAB CHEMISTRY METHOD 06/27/2025 5:48 AM EDT [facility] Calcium 8.0(L) 8.5 - 10.5 mg/dL LAB CHEMISTRY METHOD 06/27/2025 5:48 AM EDT [facility] Blood Blood sample taken from central line / Unknown Existing Catheter / Unknown 06/27/2025 4:30 AM EDT 06/27/2025 4:56 AM EDT us Jada Grissom MD LAB BLOOD ORDERABLES Final Re sult [facility] [address] [place] [address], * ECG 12 lead (06/26/2025 2:26 PM EDT) Ventricular Rate ECG 94 BPM GEMUSE Atrial Rate 94 BPM GEMUSE P-R Interval 150 ms GEMUSE QRS Duration 82 ms GEMUSE Q-T Interval 358 ms GEMUSE QTc 447 ms GEMUSE P Wave Crooks 40 degrees GEMUSE R Crooks 21 degrees GEMUSE T Crooks 26 degrees GEMUSE ECG Interpretation Normal sinus rhythm Possible Left atrial enlargement Borderline ECG When compared with ECG of 20-JUN-2025 19:16, No significant change was found Confirmed by JI MITTAL ([id number]) on 06/28/2025 9:11:36 AM GEMUSE 06/26/2025 2:26 PM EDT 06/28/2025 9:11 AM EDT us Jada Grissom MD ECG ORDERABLES Final Result GEMUSE * Vascular US duplex lower extremity venous left (06/26/2025 2:18 PM EDT) Anatomical Region Laterality Modality Vascular, Abdomen Ultrasound 06/26/2025 2:27 PM EDT Impressions 06/26/2025 2:31 PM EDT Impression: 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 No significant change. Telerad ERICK ([id number]) -------- FINAL REPORT -------- Dictated By: Elissa Reynolds Dictated Date: 06/26/2025 14:27 ET Assigned Physician: Elissa Reynolds Reviewed and Electronically Signed By: Elissa Reynolds Signed Date: 06/26/2025 14:31 ET Workstation ID: [id number] Transcribed By: Self Edit Transcribed Date: 06/26/2025 14:27 ET Narrative 06/26/2025 2:31 PM EDT History: Follow-up deep vein thrombosis. Comparison: 06/21/25, 05/29/25 Findings: Duplex and color Doppler imaging of the deep veins of the left lower extremity was performed, from the calf to the inguinal ligament. The common femoral vein is only partially compressible, with a well-defined band of wall thickening versus minimal mural thrombus abutting the superficial wall of the vessel, consistent with nonocclusive deep vein thrombosis that is likely chronic. The saphenous vein is patent and compresses completely. The femoral vein, popliteal vein, and the deep calf veins, as visualized, are patent and compress completely. Spontaneous and phasic venous flow is demonstrated throughout the deep venous system of the left lower extremity. Procedure Note Elissa Reynolds MD - 06/26/2025 History: Follow-up deep vein thrombosis. Comparison: 06/21/25, 05/29/25 Findings: Duplex and color Doppler imaging of the deep veins of the left lowerextremity was performed, from the calf to the inguinal ligament. The common femoral vein is only partially compressible, with awell-defined band of wall thickening versus minimal mural thrombusabutting the superficial wall of the vessel, consistent with nonocclusivedeep vein thrombosis that is likely chronic. The saphenous vein is patentand compresses completely. The femoral vein, popliteal vein, and the deep calf veins, as visualized,are patent and compress completely. Spontaneous and phasic venous flow isdemonstrated throughout the deep venous system of the left lowerextremity. IMPRESSION: Impression: Mild nonocclusive deep vein thrombosis involving the common femoral vein,likely chronic. No significant change. Telerad PA ([id number]) -------- FINAL REPORT -------- Dictated By: Elissa Reynolds Dictated Date: 06/26/2025 14:27 ET Assigned Physician: Elissa Reynolds Reviewed and Electronically Signed By: Elissa Reynolds Signed Date: 06/26/2025 14:31 ET Workstation ID: [id number] Transcribed By: Self Edit Transcribed Date: 06/26/2025 14:27 ET Jada Grissom MD CV VASCULAR PROCEDURES Final Result * (ABNORMAL) Manual differential (06/26/2025 4:30 AM EDT) Neutrophils % 73.0 % LAB HEMETOLOGY METHOD 06/26/2025 5:14 AM EDT [facility] Bands % 1.0 % LAB HEMETOLOGY METHOD 06/26/2025 5:14 AM EDT [facility] Lymphocytes % 21.0 % LAB HEMETOLOGY METHOD 06/26/2025 5:14 AM EDT [facility] Monocytes % 4.0 % LAB HEMETOLOGY METHOD 06/26/2025 5:14 AM EDT [facility] Eosinophils % 0.0 % LAB HEMETOLOGY METHOD 06/26/2025 5:14 AM EDT [facility] Basophils % 1.0 % LAB HEMETOLOGY METHOD 06/26/2025 5:14 AM [facility] Neutrophils Absolute Manual 2.48 1.50 - 7.00 K/mcL LAB HEMETOLOGY METHOD 06/26/2025 5:14 AM [facility] Bands Absolute Manual 0.03(H) 0.00 - 0.00 K/mcL LAB HEMETOLOGY METHOD 06/26/2025 5:14 AM [facility] Lymphocytes Absolute 0.71(L) 1.00 - 5.00 K/mcL LAB HEMETOLOGY METHOD 06/26/2025 5:14 AM [facility] Monocytes Absolute Manual 0.14(L) 0.20 - 1.00 K/mcL LAB HEMETOLOGY METHOD 06/26/2025 5:14 AM [facility] Eosinophils Absolute Manual 0.00 0.00 - 0.50 K/mcL LAB HEMETOLOGY METHOD 06/26/2025 5:14 AM [facility] Basophils Absolute Manual 0.03 0.00 - 0.20 K/mcL LAB HEMETOLOGY METHOD 06/26/2025 5:14 AM [facility] Rbc Morphology Present( A) Consistent with indices, Normal for [place] LAB HEMETOLOGY METHOD 06/26/2025 5:14 AM [facility] Comment:RBC: Morphology agre es with CBC Platelet Morphology - WAM See Note(A) Normal LAB HEMETOLOGY METHOD 06/26/2025 5:14 AM [facility] Comment:PLT: Large platelets seen Polychromasia Present Present( A) (none) LAB HEMETOLOGY METHOD 06/26/2025 5:14 AM [facility] Ovalocytes Present 5 - 10%(A) (none) LAB HEMETOLOGY METHOD 06/26/2025 5:14 AM [facility] Blood Blood sample taken from central line / Unknown Existing Catheter / Unknown 06/26/2025 4:30 AM EDT 06/26/2025 4:42 AM EDT us Sandra Bragg MD LAB BLOOD ORDERABLES Final Resul t Performing Organization Address [facility]/RUST de Phone Number [facility] [address] [place] [address], [place] [phone] * (ABNORMAL) Central line blood gas (06/26/2025 4:30 AM EDT) pH Central Line 7.38 7.32 - 7.43 06/26/2025 4:45 AM EDT [facility] pCO2 Central Line 60 40 - 60 mmHg 06/26/2025 4:45 AM EDT [facility] pO2 Central Line 47 30 - 55 mmHg 06/26/2025 4:45 AM EDT [facility] HCO3 Central Line 32(H) 22 - 26 mmol/L 06/26/2025 4:45 AM EDT [facility] O2 Saturation, Central Line 80 % 06/26/2025 4:45 AM EDT [facility] Base Excess, Central Line 9(H) -2 - 2 mmol/L 06/26/2025 4:45 AM EDT [facility] Blood Blood sample taken from central line / Unknown Existing Catheter / Unknown 06/26/2025 4:30 AM EDT 06/26/2025 4:41 AM EDT us Jada Grissom MD LAB BLOOD ORDERABLES Final Re sult Performing Organization Address [facility]/ZIP Co de Phone Number [facility] [address] [place] [address], [place] [phone] * (ABNORMAL) CBC auto differential (06/26/2025 4:30 AM EDT) WBC 3.4(L) 4.8 - 10.8 K/mcL LAB HEMETOLOGY METHOD 06/26/2025 5:14 AM [facility] RBC 3.30(L) 3.80 - 4.80 M/mcL LAB HEMETOLOGY METHOD 06/26/2025 5:14 AM [facility] Hemoglobin 7.2(L) 11.5 - 16.0 g/dL LAB HEMETOLOGY METHOD 06/26/2025 5:14 AM [facility] Hematocrit 26.1(L) 35.0 - 47.0 % LAB HEMETOLOGY METHOD 06/26/2025 5:14 AM [facility] MCV 78.9(L) 79.0 - 98.0 FL LAB HEMETOLOGY METHOD 06/26/2025 5:14 AM [facility] MCH 21.8(L) 27.0 - 32.0 pcg LAB HEMETOLOGY METHOD 06/26/2025 5:14 AM [facility] MCHC 27.6(L) 32.0 - 37.0 g/dL LAB HEMETOLOGY METHOD 06/26/2025 5:14 AM [facility] RDW 19.3(H) 11.0 - 15.0 % LAB HEMETOLOGY METHOD 06/26/2025 5:14 AM [facility] Platelets 252 130 - 400 K/mcL LAB HEMETOLOGY METHOD 06/26/2025 5:14 AM [facility] MPV 10.5 7.0 - 11.0 FL LAB HEMETOLOGY METHOD 06/26/2025 5:14 AM [facility] NRBC 0.0 <1.0 % LAB HEMETOLOGY METHOD 06/26/2025 5:14 AM [facility] NRBC Absolute 0.00 <0.10 K/mcL LAB HEMETOLOGY METHOD 06/26/2025 5:14 AM EDT [facility] Blood Blood sample taken from central line / Unknown Existing Catheter / Unknown 06/26/2025 4:30 AM EDT 06/26/2025 4:42 AM EDT Sandra Bragg MD LAB BLOOD ORDERABLES Final Resul t Performing Organization Address [facility] Co de Phone Number [facility] [address] [place] [address], [place] [phone] * (ABNORMAL) Calcium, ionized (06/26/2025 4:30 AM EDT) Calcium Ionized 4.42(L) 4.50 - 5.30 mg/dL 06/26/2025 4:47 AM EDT [facility] Blood Blood sample taken from central line / Unknown Existing Catheter / Unknown 06/26/2025 4:30 AM EDT 06/26/2025 4:42 AM EDT Jada Grissom MD LAB BLOOD ORDERABLES Final Re sult Performing Organization Address [facility]/[place] de Phone Number [facility] [address] [place] [address], [place] [phone] * Phosphorus (06/26/2025 4:30 AM EDT) Phosphorus 3.8 2.5 - 4.5 mg/dL LAB CHEMISTRY METHOD 06/26/2025 5:05 AM EDT [facility] Blood Blood sample taken from central line / Unknown Existing Catheter / Unknown 06/26/2025 4:30 AM EDT 06/26/2025 4:42 AM EDT Sandra Bragg MD LAB BLOOD ORDERABLES Final Resul t Performing Organization Address City/[facility]/ZIP Co de Phone Number [facility] [address] [place] [address], [place] [phone] * Magnesium (06/26/2025 4:30 AM EDT) Pathologist [facility] Magnesium 1.9 1.9 - 2.6 mg/dL LAB CHEMISTRY METHOD 06/26/2025 5:05 AM [facility] Blood Blood sample taken from central line / Unknown Existing Catheter / Unknown 06/26/2025 4:30 AM EDT 06/26/2025 4:42 AM EDT Sandra Bragg MD LAB BLOOD ORDERABLES Final Resul t [facility] [address] [place] [address], [place] [phone] * (ABNORMAL) Basic metabolic panel (06/26/2025 4:30 AM EDT) [facility] Sodium 133 133 - 145 mmol/L LAB CHEMISTRY METHOD 06/26/2025 5:11 AM [facility] Potassium 4.6 3.5 - 5.5 mmol/L LAB CHEMISTRY METHOD 06/26/2025 5:11 AM [facility] Chloride 96 96 - 110 mmol/L LAB CHEMISTRY METHOD 06/26/2025 5:11 AM [facility] CO2 36(H) 21 - 32 mmol/L LAB CHEMISTRY METHOD 06/26/2025 5:11 AM [facility] Anion Gap 1(L) 3 - 11 LAB CHEMISTRY METHOD 06/26/2025 5:11 AM [facility] Glucose 83 70 - 100 mg/dL LAB CHEMISTRY METHOD 06/26/2025 5:11 AM [facility] BUN 11 5 - 25 mg/dL LAB CHEMISTRY METHOD 06/26/2025 5:11 AM [facility] Creatinine <0.15(L) 0.50 - 1.10 mg/dL LAB CHEMISTRY METHOD 06/26/2025 5:11 AM EDT [facility] eGFR LAB CHEMISTRY METHOD 06/26/2025 5:11 AM EDT [facility] Comment:Creatinine above or below reportable range; unable to calculate eGFR. BUN/Creatinine Ratio LAB CHEMISTRY METHOD 06/26/2025 5:11 AM EDT [facility] Comment:Creatinine and/or Ur ea Nitrogen (BUN) above or below reportable range; unable to calculate BUN/Creatinine Ratio. Calcium 8.1(L) 8.5 - 10.5 mg/dL LAB CHEMISTRY METHOD 06/26/2025 5:11 AM EDT [facility] Blood Blood sample taken from central line / Unknown Existing Catheter / Unknown 06/26/2025 4:30 AM EDT 06/26/2025 4:42 AM EDT Sandra Bragg MD LAB BLOOD ORDERABLES Final Resul t [facility] [address] [place] [address], [place] [phone] * (ABNORMAL) CBC auto differential (06/25/2025 4:32 AM EDT) WBC 2.9(L) 4.8 - 10.8 K/[facility] LAB HEMETOLOGY METHOD 06/25/2025 5:26 AM EDT [facility] RBC 3.20(L) 3.80 - 4.80 M/mcL LAB HEMETOLOGY METHOD 06/25/2025 5:26 AM EDT [facility] Hemoglobin 7.2(L) 11.5 - 16.0 g/dL LAB HEMETOLOGY METHOD 06/25/2025 5:26 AM T [facility] Hematocrit 25.6(L) 35.0 - 47.0 % LAB HEMETOLOGY METHOD 06/25/2025 5:26 AM EDT [facility] MCV 79.3 79.0 - 98.0 FL LAB HEMETOLOGY METHOD 06/25/2025 5:26 AM [facility] MCH 22.3(L) 27.0 - 32.0 pcg LAB HEMETOLOGY METHOD 06/25/2025 5:26 AM [facility] MCHC 28.1(L) 32.0 - 37.0 g/dL LAB HEMETOLOGY METHOD 06/25/2025 5:26 AM [facility] RDW 19.3(H) 11.0 - 15.0 % LAB HEMETOLOGY METHOD 06/25/2025 5:26 AM [facility] Platelets 232 130 - 400 K/mcL LAB HEMETOLOGY METHOD 06/25/2025 5:26 AM [facility] MPV 10.2 7.0 - 11.0 FL LAB HEMETOLOGY METHOD 06/25/2025 5:26 AM [facility] NRBC 0.0 <1.0 % LAB HEMETOLOGY METHOD 06/25/2025 5:26 AM [facility] NRBC Absolute 0.00 <0.10 K/mcL LAB HEMETOLOGY METHOD 06/25/2025 5:26 AM [facility] Neutrophils Relative 69.8 % LAB HEMETOLOGY METHOD 06/25/2025 5:26 AM [facility] Comment:This is an appended report. These results have been appended to a previously preliminary verified report. Lymphocytes Relative 24.3 % LAB HEMETOLOGY METHOD 06/25/2025 5:26 AM [facility] Comment:This is an appended report. These results have been appended to a previously preliminary verified report. Monocytes Relative 3.5 % LAB HEMETOLOGY METHOD 06/25/2025 5:26 AM [facility] Comment:This is an appended report. These results have been appended to a previously preliminary verified report. Eosinophils Relative 2.1 % LAB HEMETOLOGY METHOD 06/25/2025 5:26 AM [facility] Comment:This is an appended report. These results have been appended to a previously preliminary verified report. Basophils Relative 0.3 % LAB HEMETOLOGY METHOD 06/25/2025 5:26 AM [facility] Comment:This is an appended report. These results have been appended to a previously preliminary verified report. Immature Granulocytes Relative 0.0 % LAB HEMETOLOGY METHOD 06/25/2025 5:26 AM [facility] Comment:This is an appended report. These results have been appended to a previously preliminary verified report. Neutrophils Absolute 2.01 1.50 - 7.00 K/mcL LAB HEMETOLOGY METHOD 06/25/2025 5:26 AM [facility] Comment:This is an appended report. These results have been appended to a previously preliminary verified report. Lymphocytes Absolute 0.70(L) 1.00 - 5.00 K/mcL LAB HEMETOLOGY METHOD 06/25/2025 5:26 AM [facility] Comment:This is an appended report. These results have been appended to a previously preliminary verified report. Monocytes Absolute 0.10(L) 0.20 - 1.00 K/mcL LAB HEMETOLOGY METHOD 06/25/2025 5:26 AM [facility] Comment:This is an appended report. These results have been appended to a previously preliminary verified report. Eosinophils Absolute 0.06 0.00 - 0.50 K/mcL LAB HEMETOLOGY METHOD 06/25/2025 5:26 AM [facility] Comment:This is an appended report. These results have been appended to a previously preliminary verified report. Basophils Absolute 0.01 0.00 - 0.20 K/mcL LAB HEMETOLOGY METHOD 06/25/2025 5:26 AM [facility] Comment:This is an appended report. These results have been appended to a previously preliminary verified report. Immature Granulocytes Absolute 0.00 0.00 - 0.03 K/mcL LAB HEMETOLOGY METHOD 06/25/2025 5:26 AM EDT [facility] Comment:This is an appended report. These results have been appended to a previously preliminary verified report. Blood Blood sample taken from central line / Unknown Existing Catheter / Unknown 06/25/2025 4:32 AM EDT 06/25/2025 4:38 AM EDT us Edwar SUAREZ LAB BLOOD ORDERABLES Final Resul t [facility] [address] [place] [address], [place] [phone] * (ABNORMAL) Central line blood gas (06/25/2025 4:32 AM EDT) pH Central Line 7.41 7.32 - 7.43 06/25/2025 4:45 AM EDT [facility] pCO2 Central Line 57 40 - 60 mmHg 06/25/2025 4:45 AM EDT [facility] pO2 Central Line 41 30 - 55 mmHg 06/25/2025 4:45 AM EDT [facility] HCO3 Central Line 33(H) 22 - 26 mmol/L 06/25/2025 4:45 AM EDT [facility] O2 Saturation, Central Line 72 % 06/25/2025 4:45 AM EDT [facility] Base Excess, Central Line 10(H) -2 - 2 mmol/L 06/25/2025 4:45 AM EDT [facility] Blood Blood sample taken from central line / Unknown Existing Catheter / Unknown 06/25/2025 4:32 AM EDT 06/25/2025 4:37 AM EDT us Edwar SUAREZ LAB BLOOD ORDERABLES Final Resul t Performing Organization Address City/[facility] Co de Phone Number [facility] [address] [place] [address], * (ABNORMAL) Procalcitonin (06/25/2025 4:32 AM EDT) Procalcitonin 0.19(H) <=0.16 ng/mL LAB CHEMISTRY METHOD 06/25/2025 10:44 AM EDT [facility] Blood Blood sample taken from central line / Unknown Existing Catheter / Unknown 06/25/2025 4:32 AM EDT 06/25/2025 4:38 AM EDT Narrative [facility] - 06/25/2025 10:44 AM EDT Procalcitonin > 2.00 ng/ml: Procalcitonin Levels above [...] any concentrations <2.0 ng/mL are obtained. us Edwar SUAREZ LAB BLOOD ORDERABLES Final Resul t Performing Organization Address [facility]/ZIP Co de Phone Number [facility] [address] [place] [address], [place] [phone] * Phosphorus (06/25/2025 4:32 AM EDT) Phosphorus 3.3 2.5 - 4.5 mg/dL LAB CHEMISTRY METHOD 06/25/2025 5:11 AM EDT [facility] Blood Blood sample taken from central line / Unknown Existing Catheter / Unknown 06/25/2025 4:32 AM EDT 06/25/2025 4:38 AM EDT us Edwar SUAREZ LAB BLOOD ORDERABLES Final Resul t Performing Organization Address City/[facility]/ZIP Co de Phone Number [facility] [address] [place] [address], [place] [phone] * Magnesium (06/25/2025 4:32 AM EDT) Magnesium 2.0 1.9 - 2.6 mg/dL LAB CHEMISTRY METHOD 06/25/2025 5:11 AM EDT [facility] Blood Blood sample taken from central line / Unknown Existing Catheter / Unknown 06/25/2025 4:32 AM EDT 06/25/2025 4:38 AM EDT us Edwar SUAREZ LAB BLOOD ORDERABLES Final Resul t Performing Organization Address [facility] Co de Phone Number [facility] [address] [place] [address], [place] [phone] * Calcium, ionized (06/25/2025 4:32 AM EDT) Calcium Ionized 4.60 4.50 - 5.30 mg/dL 06/25/2025 5:05 AM EDT [facility] Blood Blood sample taken from central line / Unknown Existing Catheter / Unknown 06/25/2025 4:32 AM EDT 06/25/2025 4:38 AM EDT us Edwar [facility] LAB BLOOD ORDERABLES Final Resul t Performing Organization Address City/[facility]/ZIP Co de Phone Number [facility] [address] [place] [address], [place] [phone] * (ABNORMAL) Basic metabolic panel (06/25/2025 4:32 AM EDT) Sodium 136 133 - 145 mmol/L LAB CHEMISTRY METHOD 06/25/2025 5:18 AM [facility] Potassium 4.5 3.5 - 5.5 mmol/L LAB CHEMISTRY METHOD 06/25/2025 5:18 AM [facility] Chloride 98 96 - 110 mmol/L LAB CHEMISTRY METHOD 06/25/2025 5:18 AM [facility] CO2 36(H) 21 - 32 mmol/L LAB CHEMISTRY METHOD 06/25/2025 5:18 AM [facility] Anion Gap 2(L) 3 - 11 LAB CHEMISTRY METHOD 06/25/2025 5:18 AM [facility] Glucose 78 70 - 100 mg/dL LAB CHEMISTRY METHOD 06/25/2025 5:18 AM [facility] BUN 10 5 - 25 mg/dL LAB CHEMISTRY METHOD 06/25/2025 5:18 AM [facility] Creatinine 0.27(L) 0.50 - 1.10 mg/dL LAB CHEMISTRY METHOD 06/25/2025 5:18 AM [facility] eGFR 148 >=60 mL/min/1. 73m2 LAB CHEMISTRY METHOD 06/25/2025 5:18 AM [facility] Comment:Calculation based on the Chronic Kidney Disease Epidemiology Collaboration (CKD-EPI) equation refit without adjustment for race. BUN/Creatinine Ratio 37.0 LAB CHEMISTRY METHOD 06/25/2025 5:18 AM [facility] Calcium 8.2(L) 8.5 - 10.5 mg/dL LAB CHEMISTRY METHOD 06/25/2025 5:18 AM [facility] Blood Blood sample taken from central line / Unknown Existing Catheter / Unknown 06/25/2025 4:32 AM EDT 06/25/2025 4:38 AM EDT Edwar SUAREZ LAB BLOOD ORDERABLES Final Resul t [facility] [address] [place] [address], * XR Chest 1 View (06/24/2025 5:49 AM EDT) Anatomical Region Laterality Modality Body Radiographic Liliana ging 06/24/2025 8:13 AM EDT Impressions 06/24/2025 8:14 AM EDT Unchanged appearance of the chest. -------- FINAL REPORT -------- Dictated By: Robert Richardson Dictated Date: 06/24/2025 08:13 ET Assigned Physician: Robert Richardson Reviewed and Electronically Signed By: Robert Richardson Signed Date: 06/24/2025 08:14 ET Workstation ID: [id number] Transcribed By: Self Edit Transcribed Date: 06/24/2025 08:13 ET Narrative 06/24/2025 8:14 AM EDT PROCEDURE: AP chest radiograph. HISTORY: Pneumonia. COMPARISON: 06/23/2025. FINDINGS: Unchanged support apparatus. Stable elevation of the right hemidiaphragm. Patchy right basilar opacity suggestive of atelectasis is also unchanged. There is no pneumothorax, pleural effusion, or pulmonary edema. Cardiomediastinal contours are stable. There is a stable thoracic dextroscoliosis. Mild degenerative changes of the spine. Procedure Note Robert Richardson MD - 06/24/2025 PROCEDURE: AP chest radiograph. HISTORY: Pneumonia. COMPARISON: 06/23/2025. FINDINGS: Unchanged support apparatus. Stable elevation of the right hemidiaphragm.Patchy right basilar opacity suggestive of atelectasis is also unchanged.There is no pneumothorax, pleural effusion, or pulmonary edema.Cardiomediastinal contours are stable. There is a stable thoracicdextroscoliosis. Mild degenerative changes of the spine. IMPRESSION: Unchanged appearance of the chest. -------- FINAL REPORT -------- Dictated By: Robert Richardson Dictated Date: 06/24/2025 08:13 ET Assigned Physician: Robert Richardson Reviewed and Electronically Signed By: Robert Richardson Signed Date: 06/24/2025 08:14 ET Workstation ID: [id number] Transcribed By: Self Edit Transcribed Date: 06/24/2025 08:13 ET us Jada Grissom MD IMG XR PROCEDURES Final Resul t * (ABNORMAL) Manual differential (06/24/2025 3:52 AM EDT) Neutrophils % 83.0 % LAB HEMETOLOGY METHOD 06/24/2025 5:35 AM EDT [facility] Lymphocytes % 14.0 % LAB HEMETOLOGY METHOD 06/24/2025 5:35 AM EDT [facility] Monocytes % 2.0 % LAB HEMETOLOGY [facility]/24[facility]25 [facility] Eosinophils % 2.0 % LAB HEMETOLOGY METHOD 06/24/2025 5:[facility] Basophils % 0.0 % LAB HEMETOLOGY METHOD 06/24/2025 5:35 [facility] Neutrophils Absolute Manual 2.99 1.50 - 7.00 K/mcL LAB HEMETOLOGY METHOD 06/24/2025 5:35 AM EDT [facility] Lymphocytes Absolute 0.50(L) 1.00 - 5.00 K/mcL LAB HEMETOLOGY METHOD 06/24/2025 5:35 [facility] Monocytes Absolute Manual 0.07(L) 0.20 - 1.00 K/mcL LAB HEMETOLOGY METHOD 06/24/2025 5:35 AM EDT [facility] Eosinophils Absolute Manual 0.07 0.00 - 0.50 K/mcL LAB HEMETOLOGY METHOD 06/24/2025 5:35 AM EDT [facility] Basophils Absolute Manual 0.00 0.00 - 0.20 K/[facility] LAB HEMETOLOGY METHOD 06/24/2025 5:35 AM EDT [facility] Rbc Morphology Present( A) Consistent with indices, Normal for [place] LAB HEMETOLOGY METHOD 06/24/2025 5:35 AM EDT [facility] Comment:RBC: Morphology agre es with CBC Platelet Morphology - WAM See Note(A) Normal LAB HEMETOLOGY METHOD 06/24/2025 5:35 AM EDT [facility] Comment:PLT: Normal Polychromasia Present Present( A) (none) LAB HEMETOLOGY METHOD 06/24/2025 5:35 AM EDT [facility] Ovalocytes Present 5 - 10%(A) (none) LAB HEMETOLOGY METHOD 06/24/2025 5:35 AM EDT [facility] Blood Blood sample taken from central line / Unknown Venipuncture / Unknown 06/24/2025 3:52 AM EDT 06/24/2025 4:25 AM EDT us Edwar SUAREZ LAB BLOOD ORDERABLES Final Resul t [facility] [address] [place] [address], * (ABNORMAL) CBC auto differential (06/24/2025 3:52 AM EDT) WBC 3.6(L) 4.8 - 10.8 K/[facility] LAB HEMETOLOGY METHOD 06/24/2025 5:35 AM EDT [facility] RBC 3.30(L) 3.80 - 4.80 /[facility] LAB HEMETOLOGY METHOD 06/24/2025 5:35 AM EDT [facility] Hemoglobin 7.4(L) 11.5 - 16.0 g/dL LAB HEMETOLOGY METHOD 06/24/2025 5:35 AM T [facility] Hematocrit 26.1(L) 35.0 - 47.0 % LAB HEMETOLOGY METHOD 06/24/2025 5:35 AM [facility] MCV 78.4(L) 79.0 - 98.0 FL LAB HEMETOLOGY METHOD 06/24/2025 5:35 [facility] MCH 22.2(L) 27.0 - 32.0 pcg LAB HEMETOLOGY METHOD 06/24/2025 5:35 AM [facility] MCHC 28.4(L) 32.0 - 37.0 g/dL LAB HEMETOLOGY METHOD 06/24/2025 5:35 AM [facility] RDW 19.4(H) 11.0 - 15.0 % LAB HEMETOLOGY METHOD 06/24/2025 5:35 AM [facility] Platelets 229 130 - 400 K/mcL LAB HEMETOLOGY METHOD 06/24/2025 5:35 AM [facility] MPV 9.8 7.0 - 11.0 FL LAB HEMETOLOGY METHOD 06/24/2025 5:35 AM [facility] NRBC 0.0 <1.0 % LAB HEMETOLOGY METHOD 06/24/2025 5:35 AM [facility] NRBC Absolute 0.00 <0.10 K/mcL LAB HEMETOLOGY METHOD 06/24/2025 5:35 AM [facility] Blood Blood sample taken from central line / Unknown Venipuncture / Unknown 06/24/2025 3:52 AM EDT 06/24/2025 4:25 AM EDT us Edwar SUAREZ LAB BLOOD ORDERABLES Final Resul t [facility] [address] [place] [address], * (ABNORMAL) Central line blood gas (06/24/2025 3:52 AM EDT) pH Central Line 7.41 7.32 - 7.43 06/24/2025 4:29 AM EDT [facility] pCO2 Central Line 56 40 - 60 mmHg 06/24/2025 4:29 AM EDT [facility] pO2 Central Line 43 30 - 55 mmHg 06/24/2025 4:29 AM EDT [facility] HCO3 Central Line 32(H) 22 - 26 mmol/L 06/24/2025 4:29 AM EDT [facility] O2 Saturation, Central Line 74 % 06/24/2025 4:29 AM EDT [facility] Base Excess, Central Line 10(H) -2 - 2 mmol/L 06/24/2025 4:29 AM EDT [facility] Blood Blood sample taken from central line / Unknown Existing Catheter / Unknown 06/24/2025 3:52 AM EDT 06/24/2025 4:24 AM EDT Jada Grissom MD LAB BLOOD ORDERABLES Final Re sult Performing Organization Address [facility]/ZIP Co de Phone Number [facility] [address] [place] [address], [place] [phone] * Magnesium (06/24/2025 3:52 AM EDT) Magnesium 1.9 1.9 - 2.6 mg/dL LAB CHEMISTRY METHOD 06/24/2025 4:56 AM EDT [facility] Blood Blood sample taken from central line / Unknown Venipuncture / Unknown 06/24/2025 3:52 AM EDT 06/24/2025 4:25 AM EDT us Jada Grissom MD LAB BLOOD ORDERABLES Final Re sult Performing Organization Address [facility]/ZIP Co de Phone Number [facility] [address] [place] [address], [place] [phone] * Phosphorus (06/24/2025 3:52 AM EDT) [facility] Phosphorus 2.8 2.5 - 4.5 mg/dL LAB CHEMISTRY METHOD 06/24/2025 4:56 AM EDT [facility] Blood Blood sample taken from central line / Unknown Venipuncture / Unknown 06/24/2025 3:52 AM EDT 06/24/2025 4:25 AM EDT us Jada Grissom MD LAB BLOOD ORDERABLES Final Re sult Performing Organization Address [facility] Co de Phone Number [facility] [address] [place] [address], [place] [phone] * (ABNORMAL) Hepatic function panel (06/24/2025 3:52 AM EDT) [facility] Total Protein 6.6 6.0 - 8.0 g/dL LAB CHEMISTRY METHOD 06/24/2025 4:56 AM EDT [facility] Albumin 2.1(L) 3.2 - 5.0 g/dL LAB CHEMISTRY METHOD 06/24/2025 4:56 AM EDT [facility] Total Bilirubin 0.3 0.0 - 1.4 mg/dL LAB CHEMISTRY METHOD 06/24/2025 4:56 AM EDT [facility] Bilirubin, Direct <0.1 0.0 - 0.3 mg/dL LAB CHEMISTRY METHOD 06/24/2025 4:56 AM EDT [facility] Bilirubin, Indirect LAB CHEMISTRY METHOD 06/24/2025 4:56 AM EDT [facility] Comment:Unable to calculate Indirect Bilirubin. ALT (SGPT) 9(L) 10 - 60 unit/L LAB CHEMISTRY METHOD 06/24/2025 4:56 AM EDT [facility] AST (SGOT) 14 10 - 42 unit/L LAB CHEMISTRY METHOD 06/24/2025 4:56 AM EDT [facility] Alkaline Phosphatase 54 42 - 121 unit/L LAB CHEMISTRY METHOD 06/24/2025 4:56 AM EDT [facility] Blood Blood sample taken from central line / Unknown Venipuncture / Unknown 06/24/2025 3:52 AM EDT 06/24/2025 4:25 AM EDT Jada Grissom MD LAB BLOOD ORDERABLES Final Re sult Performing Organization Address [facility]/ZIP Co de Phone Number [facility] [address] [place] [address], [place] [phone] * Calcium, ionized (06/24/2025 3:52 AM EDT) Calcium Ionized 4.61 4.50 - 5.30 mg/dL 06/24/2025 4:35 AM EDT [facility] Blood Blood sample taken from central line / Unknown Venipuncture / Unknown 06/24/2025 3:52 AM EDT 06/24/2025 4:25 AM EDT Jada Grissom MD LAB BLOOD ORDERABLES Final Re sult [facility] [address] [place] [address], [place] [phone] * (ABNORMAL) Basic metabolic panel (06/24/2025 3:52 AM EDT) Sodium 135 133 - 145 mmol/L LAB CHEMISTRY METHOD 06/24/2025 5:00 AM EDT [facility] Potassium 4.5 3.5 - 5.5 mmol/L LAB CHEMISTRY METHOD 06/24/2025 5:00 AM [facility] Chloride 99 96 - 110 mmol/L LAB CHEMISTRY METHOD 06/24/2025 5:00 AM [facility] CO2 35(H) 21 - 32 mmol/L LAB CHEMISTRY METHOD 06/24/2025 5:00 AM [facility] Anion Gap 1(L) 3 - 11 LAB CHEMISTRY METHOD 06/24/2025 5:00 AM [facility] Glucose 86 70 - 100 mg/dL LAB CHEMISTRY METHOD 06/24/2025 5:00 AM [facility] BUN 10 5 - 25 mg/dL LAB CHEMISTRY METHOD 06/24/2025 5:00 AM [facility] Creatinine 0.18(L) 0.50 - 1.10 mg/dL LAB CHEMISTRY METHOD 06/24/2025 5:00 AM [facility] eGFR 164 >=60 mL/min/1. 73m2 LAB CHEMISTRY METHOD 06/24/2025 5:00 AM [facility] Comment:Calculation based on the Chronic Kidney Disease Epidemiology Collaboration (CKD-EPI) equation refit without adjustment for race. BUN/Creatinine Ratio 55.6 LAB CHEMISTRY METHOD 06/24/2025 5:00 AM [facility] Calcium 8.2(L) 8.5 - 10.5 mg/dL LAB CHEMISTRY METHOD 06/24/2025 5:00 AM [facility] Blood Blood sample taken from central line / Unknown Venipuncture / Unknown 06/24/2025 3:52 AM EDT 06/24/2025 4:25 AM EDT us Jada Grissom MD LAB BLOOD ORDERABLES Final Re sult [facility] [address] [place] [address], [place] [phone] * XR Chest 1 View (06/23/2025 5:23 AM EDT) Anatomical Region Laterality Modality Body Radiographic Liliana ging 06/23/2025 8:05 AM EDT Impressions 06/23/2025 8:06 AM EDT Possible new layering right pleural effusion. -------- FINAL REPORT -------- Dictated By: Robert Richardson Dictated Date: 06/23/2025 08:05 ET Assigned Physician: Robert Richardson Reviewed and Electronically Signed By: Robert Richardson Signed Date: 06/23/2025 08:06 ET Workstation ID: [id number] Transcribed By: Self Edit Transcribed Date: 06/23/2025 08:05 ET Narrative 06/23/2025 8:06 AM EDT PROCEDURE: AP chest radiograph. HISTORY: acute respiratory failure. COMPARISON: 06/21/2025. FINDINGS: Stable support apparatus. Lower lung volumes with elevation of the right hemidiaphragm. Hazy opacity projecting over the right base could represent layering pleural fluid. No pneumothorax. Unchanged cardiomediastinal contours. Lower thoracic dextroscoliosis. Procedure Note Robert Richardson MD - 06/23/2025 PROCEDURE: AP chest radiograph. HISTORY: acute respiratory failure. COMPARISON: 06/21/2025. FINDINGS: Stable support apparatus. Lower lung volumes with elevation of the righthemidiaphragm. Hazy opacity projecting over the right base couldrepresent layering pleural fluid. No pneumothorax. Unchangedcardiomediastinal contours. Lower thoracic dextroscoliosis. IMPRESSION: Possible new layering right pleural effusion. -------- FINAL REPORT -------- Dictated By: Robert Richardson Dictated Date: 06/23/2025 08:05 ET Assigned Physician: Robert Richardson Reviewed and Electronically Signed By: Robert Richardson Signed Date: 06/23/2025 08:06 ET Workstation ID: [id number] Transcribed By: Self Edit Transcribed Date: 06/23/2025 08:05 ET Edwar SUAREZ IMG XR PROCEDURES Final Result * (ABNORMAL) CBC auto differential (06/23/2025 4:26 AM EDT) WBC 4.4(L) 4.8 - 10.8 K/mcL LAB HEMETOLOGY METHOD 06/23/2025 4:45 [facility] RBC 3.30(L) 3.80 - 4.80 M/mcL LAB HEMETOLOGY METHOD 06/23/2025 4:45 AM [facility] Hemoglobin 7.3(L) 11.5 - 16.0 g/dL LAB HEMETOLOGY METHOD 06/23/2025 4:45 AM [facility] Hematocrit 26.5(L) 35.0 - 47.0 % LAB HEMETOLOGY METHOD 06/23/2025 4:45 AM [facility] MCV 79.6 79.0 - 98.0 FL LAB HEMETOLOGY METHOD 06/23/2025 4:45 AM [facility] MCH 21.9(L) 27.0 - 32.0 pcg LAB HEMETOLOGY METHOD 06/23/2025 4:45 AM [facility] MCHC 27.5(L) 32.0 - 37.0 g/dL LAB HEMETOLOGY METHOD 06/23/2025 4:45 AM [facility] RDW 19.3(H) 11.0 - 15.0 % LAB HEMETOLOGY METHOD 06/23/2025 4:45 AM [facility] Platelets 218 130 - 400 K/mcL LAB HEMETOLOGY METHOD 06/23/2025 4:45 AM [facility] MPV 11.2(H) 7.0 - 11.0 FL LAB HEMETOLOGY METHOD 06/23/2025 4:45 AM [facility] NRBC 0.0 <1.0 % LAB HEMETOLOGY METHOD 06/23/2025 4:45 AM [facility] NRBC Absolute 0.00 <0.10 K/mcL LAB HEMETOLOGY METHOD 06/23/2025 4:45 AM [facility] Neutrophils Relative 82.4 % LAB HEMETOLOGY METHOD 06/23/2025 4:45 AM [facility] Lymphocytes Relative 14.5 % LAB HEMETOLOGY METHOD 06/23/2025 4:45 AM [facility] Monocytes Relative 2.0 % LAB HEMETOLOGY METHOD 06/23/2025 4:45 AM [facility] Eosinophils Relative 0.9 % LAB HEMETOLOGY METHOD 06/23/2025 4:45 AM [facility] Basophils Relative 0.0 % LAB HEMETOLOGY METHOD 06/23/2025 4:45 AM [facility] Immature Granulocytes Relative 0.2 % LAB HEMETOLOGY METHOD 06/23/2025 4:45 AM [facility] Neutrophils Absolute 3.62 1.50 - 7.00 K/mcL LAB HEMETOLOGY METHOD 06/23/2025 4:45 AM [facility] Lymphocytes Absolute 0.64(L) 1.00 - 5.00 K/mcL LAB HEMETOLOGY METHOD 06/23/2025 4:45 AM [facility] Monocytes Absolute 0.09(L) 0.20 - 1.00 K/mcL LAB HEMETOLOGY METHOD 06/23/2025 4:45 AM [facility] Eosinophils Absolute 0.04 0.00 - 0.50 K/mcL LAB HEMETOLOGY METHOD 06/23/2025 4:45 AM [facility] Basophils Absolute 0.00 0.00 - 0.20 K/mcL LAB HEMETOLOGY METHOD 06/23/2025 4:45 AM EDT [facility] Immature Granulocytes Absolute 0.01 0.00 - 0.03 K/mcL LAB HEMETOLOGY METHOD 06/23/2025 4:45 AM EDT [facility] Blood Venous blood specimen / Unknown Venipuncture / Unknown 06/23/2025 4:26 AM EDT 06/23/2025 4:39 AM EDT us Araseli Morton MD LAB BLOOD ORDERABLES Final Re sult [facility] [address] [place] [address], [place] [phone] * (ABNORMAL) Central line blood gas (06/23/2025 4:26 AM EDT) pH Central Line 7.39 7.32 - 7.43 06/23/2025 4:42 AM EDT [facility] pCO2 Central Line 57 40 - 60 mmHg 06/23/2025 4:42 AM EDT [facility] pO2 Central Line 46 30 - 55 mmHg 06/23/2025 4:42 AM EDT [facility] HCO3 Central Line 31(H) 22 - 26 mmol/L 06/23/2025 4:42 AM EDT [facility] O2 Saturation, Central Line 82 % 06/23/2025 4:42 AM EDT [facility] Base Excess, Central Line 9(H) -2 - 2 mmol/L 06/23/2025 4:42 AM EDT [facility] Blood Blood sample taken from central line / Unknown Existing Catheter / Unknown 06/23/2025 4:26 AM EDT 06/23/2025 4:36 AM EDT us Edwar SUAREZ LAB BLOOD ORDERABLES Final Resul t [facility] [address] [place] [address], [place] [phone] * (ABNORMAL) Procalcitonin (06/23/2025 4:26 AM EDT) Procalcitonin 0.34(H) <=0.16 ng/mL LAB CHEMISTRY METHOD 06/23/2025 8:05 AM EDT [facility] Blood Venous blood specimen / Unknown Venipuncture / Unknown 06/23/2025 4:26 AM EDT 06/23/2025 4:39 AM EDT Narrative [facility] - 06/23/2025 8:05 AM EDT Procalcitonin > 2.00 ng/ml: Procalcitonin Levels above [...] any concentrations <2.0 ng/mL are obtained. us Araseli Morton MD LAB BLOOD ORDERABLES Final Re sult Performing Organization Address [facility]/ZIP Co de Phone Number [facility] [address] [place] [address], [place] [phone] * (ABNORMAL) Comprehensive metabolic panel (06/23/2025 4:26 AM EDT) Sodium 136 133 - 145 mmol/L LAB CHEMISTRY METHOD 06/23/2025 5:18 AM [facility] Potassium 4.1 3.5 - 5.5 mmol/L LAB CHEMISTRY METHOD 06/23/2025 5:18 AM [facility] Chloride 100 96 - 110 mmol/L LAB CHEMISTRY METHOD 06/23/2025 5:18 AM [facility] CO2 35(H) 21 - 32 mmol/L LAB CHEMISTRY METHOD 06/23/2025 5:18 AM [facility] Anion Gap 1(L) 3 - 11 LAB CHEMISTRY METHOD 06/23/2025 5:18 AM [facility] Glucose 101(H) 70 - 100 mg/dL LAB CHEMISTRY METHOD 06/23/2025 5:18 AM [facility] BUN 15 5 - 25 mg/dL LAB CHEMISTRY METHOD 06/23/2025 5:18 AM [facility] Creatinine 0.31(L) 0.50 - 1.10 mg/dL LAB CHEMISTRY METHOD 06/23/2025 5:18 AM [facility] eGFR 144 >=60 mL/min/1. 73m2 LAB CHEMISTRY METHOD 06/23/2025 5:18 AM [facility] Comment:Calculation based on the Chronic Kidney Disease Epidemiology Collaboration (CKD-EPI) equation refit without adjustment for race. BUN/Creatinine Ratio 48.4 LAB CHEMISTRY METHOD 06/23/2025 5:18 AM [facility] Calcium 8.2(L) 8.5 - 10.5 mg/dL LAB CHEMISTRY METHOD 06/23/2025 5:18 AM [facility] AST (SGOT) 14 10 - 42 unit/L LAB CHEMISTRY METHOD 06/23/2025 5:18 AM [facility] ALT (SGPT) <6(L) 10 - 60 unit/L LAB CHEMISTRY METHOD 06/23/2025 5:18 AM EDT [facility] Alkaline Phosphatase 59 42 - 121 unit/L LAB CHEMISTRY METHOD 06/23/2025 5:18 AM EDT [facility] Total Protein 7.0 6.0 - 8.0 g/dL LAB CHEMISTRY METHOD 06/23/2025 5:18 AM EDT [facility] Albumin 2.2(L) 3.2 - 5.0 g/dL LAB CHEMISTRY METHOD 06/23/2025 5:18 AM EDT [facility] Total Bilirubin 0.4 0.0 - 1.4 mg/dL LAB CHEMISTRY METHOD 06/23/2025 5:18 AM EDT [facility] Blood Venous blood specimen / Unknown Venipuncture / Unknown 06/23/2025 4:26 AM EDT 06/23/2025 4:39 AM EDT Araseli Morton MD LAB BLOOD ORDERABLES Final Re sult [facility] [address] [place] [address], [place] [phone] * Phosphorus (06/23/2025 4:26 AM EDT) Phosphorus 3.3 2.5 - 4.5 mg/dL LAB CHEMISTRY METHOD 06/23/2025 5:14 AM EDT [facility] Blood Venous blood specimen / Unknown Venipuncture / Unknown 06/23/2025 4:26 AM EDT 06/23/2025 4:39 AM EDT us Araseli Morton MD LAB BLOOD ORDERABLES Final Re sult [facility] [address] [place] [address], [place] [phone] * (ABNORMAL) Magnesium (06/23/2025 4:26 AM EDT) Magnesium 1.8(L) 1.9 - 2.6 mg/dL LAB CHEMISTRY METHOD 06/23/2025 5:14 AM EDT [facility] Blood Venous blood specimen / Unknown Venipuncture / Unknown 06/23/2025 4:26 AM EDT 06/23/2025 4:39 AM EDT us Araseli Morton MD LAB BLOOD ORDERABLES Final Re sult Performing Organization Address [facility]/ZIP Co de Phone Number [facility] [address] [place] [address], [place] [phone] * Calcium, ionized (06/23/2025 4:26 AM EDT) Pathologist [facility] Calcium Ionized 4.69 4.50 - 5.30 mg/dL 06/23/2025 4:59 AM EDT [facility] Blood Venous blood specimen / Unknown Venipuncture / Unknown 06/23/2025 4:26 AM EDT 06/23/2025 4:39 AM EDT us Araseli Morton MD LAB BLOOD ORDERABLES Final Re sult Performing Organization Address [facility] Co de Phone Number [facility] [address] [place] [address], [place] [phone] * Lactate (06/23/2025 4:26 AM EDT) Lactate 0.8 0.4 - 2.0 mmol/L LAB CHEMISTRY METHOD 06/23/2025 5:13 AM EDT [facility] Blood Venous blood specimen / Unknown Venipuncture / Unknown 06/23/2025 4:26 AM EDT 06/23/2025 4:38 AM EDT us Araseli Morton MD LAB BLOOD ORDERABLES Final Re sult [facility] [address] [place] [address], * (ABNORMAL) Complete blood count (06/22/2025 12:04 PM EDT) [facility] WBC 6.5 4.8 - 10.8 K/mcL LAB HEMETOLOGY METHOD 06/22/2025 12:34 PM EDT [facility] RBC 3.40(L) 3.80 - 4.80 M/mcL LAB HEMETOLOGY METHOD 06/22/2025 12:34 PM EDT [facility] Hemoglobin 7.5(L) 11.5 - 16.0 g/dL LAB HEMETOLOGY METHOD 06/22/2025 12:34 PM EDT [facility] Hematocrit 27.5(L) 35.0 - 47.0 % LAB HEMETOLOGY METHOD 06/22/2025 12:34 PM EDT [facility] MCV 80.9 79.0 - 98.0 FL LAB HEMETOLOGY METHOD 06/22/2025 12:34 PM EDT [facility] MCH 22.1(L) 27.0 - 32.0 pcg LAB HEMETOLOGY METHOD 06/22/2025 12:34 PM EDT [facility] MCHC 27.3(L) 32.0 - 37.0 g/dL LAB HEMETOLOGY METHOD 06/22/2025 12:34 PM EDT [facility] RDW 19.3(H) 11.0 - 15.0 % LAB HEMETOLOGY METHOD 06/22/2025 12:34 PM EDT [facility] Platelets 217 130 - 400 K/mcL LAB HEMETOLOGY METHOD 06/22/2025 12:34 PM EDT [facility] MPV 10.4 7.0 - 11.0 FL LAB HEMETOLOGY METHOD 06/22/2025 12:34 PM EDT [facility] NRBC 0.0 <1.0 % LAB HEMETOLOGY METHOD 06/22/2025 12:34 PM EDT [facility] NRBC Absolute 0.00 <0.10 K/mcL LAB HEMETOLOGY METHOD 06/22/2025 12:34 PM EDT [facility] Blood Venous blood specimen / Unknown Venipuncture / Unknown 06/22/2025 12:04 PM EDT 06/22/2025 12:15 PM EDT us Edwar SUAREZ LAB BLOOD ORDERABLES Final Resul t [facility] [address] [place] [address], [place] [phone] * Transfuse RBC (06/22/2025 11:06 AM EDT) us Edwar SUAERZ BLOOD TRANSFUSION ORDERABLES Fin al Result * Transfuse RBC: 1 Units (06/22/2025 11:06 AM EDT) us Edwar SUAREZ BLOOD TRANSFUSION ORDERABLES Fin al Result * Antibody identification (06/22/2025 6:22 AM EDT) Antibody Identification K Antibody ([place]) 06/22/2025 8:51 AM EDT [facility] Blood Venous blood specimen / Unknown Venipuncture / Unknown 06/22/2025 6:22 AM EDT 06/22/2025 6:32 AM EDT us Edwar SUAREZ LAB BLOOD BANK TEST ORDERABLES F inal Result [facility] [address] [place] [address], [place] [phone] * Type and screen (06/22/2025 6:22 AM EDT) ABO Group O 06/22/2025 8:49 AM EDT [facility] Rh Type Positive 06/22/2025 8:49 AM EDT [facility] Antibody Screen Positive 06/22/2025 8:49 AM EDT [facility] Blood Venous blood specimen / Unknown Venipuncture / Unknown 06/22/2025 6:22 AM EDT 06/22/2025 6:32 AM EDT us Edwar SUAREZ LAB BLOOD BANK TEST ORDERABLES F inal Result [facility] [address] [place] [address], * Prepare RBC: 1 Units (06/22/2025 5:52 AM EDT) Product Code [id number] 06/22/2025 9:13 AM EDT [facility] Unit Number [id number] 06/22/20 9:13 AM EDT [facility] Crossmatch Compatible 06/22/2025 8:53 AM EDT [facility] Dispense Status Transfused 06/22/2025 9:13 AM EDT [facility] Unit ABO Rh ONEG 06/22/2025 9:13 AM EDT [facility] Unit Expiration Date Time [id number] 06/22/2025 9:13 AM EDT [facility] Unit Blood Type 9500 06/22/2025 9:13 AM EDT [facility] Blood Venous blood specimen / Unknown 06/22/2025 5:52 AM EDT 06/22/2025 6:32 AM EDT us Edwar SUAREZ BLOOD BANK PRODUCT ORDERABLES Fi nal Result [facility] [address] [place] [address], * (ABNORMAL) CBC auto differential (06/22/2025 5:06 AM EDT) [facility] WBC 5.9 4.8 - 10.8 K/mcL LAB HEMETOLOGY METHOD 06/22/2025 5:30 AM EDT [facility] RBC 3.20(L) 3.80 - 4.80 M/mcL LAB HEMETOLOGY METHOD 06/22/2025 5:30 AM EDT [facility] Hemoglobin 6.8(L) 11.5 - 16.0 g/dL LAB HEMETOLOGY METHOD 06/22/2025 5:30 AM EDT [facility] Hematocrit 25.5(L) 35.0 - 47.0 % LAB HEMETOLOGY METHOD 06/22/2025 5:30 AM EDT [facility] MCV 80.2 79.0 - 98.0 FL LAB HEMETOLOGY METHOD 06/22/2025 5:30 AM EDT [facility] MCH 21.4(L) 27.0 - 32.0 pcg LAB HEMETOLOGY METHOD 06/22/2025 5:[facility] MCHC 26.7(L) 32.0 - 37.0 g/dL LAB HEMETOLOGY METHOD 06/22/2025 5:30 AM EDT [facility] RDW 19.3(H) 11.0 - 15.0 % LAB HEMETOLOGY METHOD 06/22/2025 5:30 AM EDT [facility] Platelets 200 130 - 400 K/mcL LAB HEMETOLOGY METHOD 06/22/2025 5:30 [facility] MPV 9.6 7.0 - 11.0 FL LAB HEMETOLOGY METHOD 06/22/2025 5:30 AM EDT [facility] NRBC 0.0 <1.0 % LAB HEMETOLOGY METHOD 06/22/2025 5:30 AM [facility] NRBC Absolute 0.00 <0.10 K/mcL LAB HEMETOLOGY METHOD 06/22/2025 5:30 AM [facility] Neutrophils Relative 83.7 % LAB HEMETOLOGY METHOD 06/22/2025 5:30 AM [facility] Lymphocytes Relative 13.1 % LAB HEMETOLOGY METHOD 06/22/2025 5:30 AM [facility] Monocytes Relative 2.4 % LAB HEMETOLOGY METHOD 06/22/2025 5:30 AM [facility] Eosinophils Relative 0.3 % LAB HEMETOLOGY METHOD 06/22/2025 5:30 AM [facility] Basophils Relative 0.2 % LAB HEMETOLOGY METHOD 06/22/2025 5:30 AM [facility] Immature Granulocytes Relative 0.3 % LAB HEMETOLOGY METHOD 06/22/2025 5:30 AM [facility] Neutrophils Absolute 4.94 1.50 - 7.00 K/mcL LAB HEMETOLOGY METHOD 06/22/2025 5:30 AM [facility] Lymphocytes Absolute 0.77(L) 1.00 - 5.00 K/mcL LAB HEMETOLOGY METHOD 06/22/2025 5:30 AM [facility] Monocytes Absolute 0.14(L) 0.20 - 1.00 K/mcL LAB HEMETOLOGY METHOD 06/22/2025 5:30 AM [facility] Eosinophils Absolute 0.02 0.00 - 0.50 K/mcL LAB HEMETOLOGY METHOD 06/22/2025 5:30 AM [facility] Basophils Absolute 0.01 0.00 - 0.20 K/mcL LAB HEMETOLOGY METHOD 06/22/2025 5:30 AM EDT [facility] Immature Granulocytes Absolute 0.02 0.00 - 0.03 K/mcL LAB HEMETOLOGY METHOD 06/22/2025 5:30 AM EDT [facility] Blood Venous blood specimen / Unknown Venipuncture / Unknown 06/22/2025 5:06 AM EDT 06/22/2025 5:25 AM EDT us Edwar SUAREZ LAB BLOOD ORDERABLES Final Resul t Performing Organization Address City/[facility]/ZIP Co de Phone Number [facility] [address] [place] [address], [place] [phone] * (ABNORMAL) Central line blood gas (06/22/2025 5:06 AM EDT) pH Central Line 7.36 7.32 - 7.43 06/22/2025 5:31 AM EDT [facility] pCO2 Central Line 57 40 - 60 mmHg 06/22/2025 5:31 AM EDT [facility] pO2 Central Line 53 30 - 55 mmHg 06/22/2025 5:31 AM EDT [facility] HCO3 Central Line 29(H) 22 - 26 mmol/L 06/22/2025 5:31 AM EDT [facility] O2 Saturation, Central Line 87 % 06/22/2025 5:31 AM EDT [facility] Base Excess, Central Line 6(H) -2 - 2 mmol/L 06/22/2025 5:31 AM EDT [facility] Blood Blood sample taken from central line / Unknown Existing Catheter / Unknown 06/22/2025 5:06 AM EDT 06/22/2025 5:24 AM EDT us Edwar SUAREZ LAB BLOOD ORDERABLES Final Resul t [facility] [address] [place] [address], * (ABNORMAL) Procalcitonin (06/22/2025 5:06 AM EDT) Procalcitonin 0.53(H) <=0.16 ng/mL LAB CHEMISTRY METHOD 06/22/2025 7:46 AM EDT [facility] Blood Venous blood specimen / Unknown Venipuncture / Unknown 06/22/2025 5:06 AM EDT 06/22/2025 5:25 AM EDT Narrative [facility] - 06/22/2025 7:46 AM EDT Procalcitonin > 2.00 ng/ml: Procalcitonin Levels above [...] if any concentrations <2.0 ng/mL are obtained. Edwar SUAREZ LAB BLOOD ORDERABLES Final Resul t [facility] [address] [place] [address], * Phosphorus (06/22/2025 5:06 AM EDT) Phosphorus 3.9 2.5 - 4.5 mg/dL LAB CHEMISTRY METHOD 06/22/2025 5:50 AM EDT [facility] Blood Venous blood specimen / Unknown Venipuncture / Unknown 06/22/2025 5:06 AM EDT 06/22/2025 5:25 AM EDT us Edwar SUAREZ LAB BLOOD ORDERABLES Final Resul t Performing Organization Address City/[facility]/ZIP Co de Phone Number [facility] [address] [place] [address], [place] [phone] * Magnesium (06/22/2025 5:06 AM EDT) Magnesium 2.0 1.9 - 2.6 mg/dL LAB CHEMISTRY METHOD 06/22/2025 5:50 AM EDT [facility] Blood Venous blood specimen / Unknown Venipuncture / Unknown 06/22/2025 5:06 AM EDT 06/22/2025 5:25 AM EDT us Edwar SUAREZ LAB BLOOD ORDERABLES Final Resul t Performing Organization Address [facility] Co de Phone Number [facility] [address] [place] [address], [place] [phone] * Calcium, ionized (06/22/2025 5:06 AM EDT) Calcium Ionized 4.74 4.50 - 5.30 mg/dL 06/22/2025 5:42 AM EDT [facility] Blood Venous blood specimen / Unknown Venipuncture / Unknown 06/22/2025 5:06 AM EDT 06/22/2025 5:25 AM EDT us Edwar SUAREZ LAB BLOOD ORDERABLES Final Resul t Performing Organization Address City/[facility]/ZIP Co de Phone Number [facility] [address] [place] [address], [place] [phone] * (ABNORMAL) Basic metabolic panel (06/22/2025 5:06 AM EDT) Sodium 137 133 - 145 mmol/L LAB CHEMISTRY METHOD 06/22/2025 5:51 AM [facility] Potassium 4.1 3.5 - 5.5 mmol/L LAB CHEMISTRY METHOD 06/22/2025 5:51 AM [facility] Chloride 104 96 - 110 mmol/L LAB CHEMISTRY METHOD 06/22/2025 5:51 AM [facility] CO2 32 21 - 32 mmol/L LAB CHEMISTRY METHOD 06/22/2025 5:51 AM [facility] Anion Gap 1(L) 3 - 11 LAB CHEMISTRY METHOD 06/22/2025 5:51 AM [facility] Glucose 94 70 - 100 mg/dL LAB CHEMISTRY METHOD 06/22/2025 5:51 AM [facility] BUN 19 5 - 25 mg/dL LAB CHEMISTRY METHOD 06/22/2025 5:51 AM [facility] Creatinine 0.24(L) 0.50 - 1.10 mg/dL LAB CHEMISTRY METHOD 06/22/2025 5:51 AM [facility] eGFR 153 >=60 mL/min/1. 73m2 LAB CHEMISTRY METHOD 06/22/2025 5:51 AM [facility] Comment:Calculation based on the Chronic Kidney Disease Epidemiology Collaboration (CKD-EPI) equation refit without adjustment for race. BUN/Creatinine Ratio 79.2 LAB CHEMISTRY METHOD 06/22/2025 5:51 AM [facility] Calcium 8.4(L) 8.5 - 10.5 mg/dL LAB CHEMISTRY METHOD 06/22/2025 5:51 AM [facility] Blood Venous blood specimen / Unknown Venipuncture / Unknown 06/22/2025 5:06 AM EDT 06/22/2025 5:25 AM EDT us Edwar Stiles PA LAB BLOOD ORDERABLES Final Resul t [facility] [address] [place] [address], * (ABNORMAL) Culture sputum (06/21/2025 3:59 PM EDT) Culture, Sputum Serratia marcescens(A) LAURIE 06/25/2025 8:52 AM EDT [facility] Comment: The organism value for this result has been updated. These results have been appended to the previously preliminary verified report. This is an edited result. Previous organism was Gram negative bacilli on 06/23/2025 at 0913 EDT. Culture, Sputum Pseudomonas aeruginosa(A) LAURIE 06/25/2025 8:52 AM EDT [facility] Comment: The organism value for this result has been updated. These results have been appended to the previously preliminary verified report. Gram Stain Result No Epithelial cells 06/25/2025 8:52 AM EDT [facility] Gram Stain Result Few Polymorphonuclear leukocytes 06/25/2025 8:52 AM EDT [facility] Gram Stain Result No organisms seen 06/25/2025 8:52 AM EDT [facility] Sputum, aspirated Lung structure / Unknown Non-blood Collection / Unknown 06/21/2025 3:59 PM EDT 06/21/2025 4:04 PM EDT Narrative Organism Antibiotic Method Susceptibility Serratia marcescens Amoxicillin/Clavulanate LAURIE >=32 ug/ml: Resistant Serratia marcescens Cefoxitin LAURIE 16 ug/ml: Resistant Serratia marcescens Ceftazidime LAURIE <=0.5 ug/ml: Susceptible Serratia marcescens Ceftriaxone LAURIE <=0.25 ug/ml: Susceptible Serratia marcescens Cefepime LAURIE <=0.12 ug/ml: Susceptible Serratia marcescens Meropenem LAURIE 1 ug/ml: Susceptible Serratia marcescens Amikacin LAURIE 4 ug/ml: Susceptible Serratia marcescens Gentamicin LAURIE <=1 ug/ml: Susceptible Serratia marcescens Ciprofloxacin LAURIE <=0.06 ug/ml: Susceptible Serratia marcescens Levofloxacin LUARIE <=0.12 ug/ml: Susceptible Serratia marcescens Trimethoprim/Sulfame thox azole LAURIE <=20 ug/ml: Susceptible Pseudomonas aeruginosa Piperacillin/Tazobactam LAURIE 8 ug/ml: Susceptible Pseudomonas aeruginosa Ceftazidime LAURIE 2 ug/ml: Susceptible Pseudomonas aeruginosa Meropenem LAURIE 1 ug/ml: Susceptible Pseudomonas aeruginosa Ciprofloxacin LAURIE 2 ug/ml: Resistant Pseudomonas aeruginosa Levofloxacin LAURIE 4 ug/ml: Resistant Pseudomonas aeruginosa Cefepime DISK DIFFUSION Susceptible Edwar [facility]AREZ LAB MICROBIOLOGY - GENERAL ORDER ALEJANDRA Final Result [facility] [address] [place] [address], [place] [phone] * POCT Glucose, blood (06/21/2025 11:17 AM EDT) Glucose POCT 88 70 - 100 mg/dL 06/21/2025 11:18 AM EDT [facility] Blood Capillary blood specimen / Unknown 06/21/2025 11:17 AM EDT 06/21/2025 11:19 AM EDT Araseli Morton MD LAB POINT OF CARE TE ST DOCKED DEVICE UNSOLICITED RESULTS Final Result [facility] [address] [place] [address], [place] [phone] * POCT Glucose, blood (06/21/2025 6:31 AM EDT) Glucose POCT 82 70 - 100 mg/dL 06/21/2025 6:32 AM EDT [facility] Blood Capillary blood specimen / Unknown 06/21/2025 6:31 AM EDT 06/21/2025 6:33 AM EDT Ronnie Sierra MD LAB POINT OF CARE TE ST DOCKED DEVICE UNSOLICITED RESULTS Final Result [facility] [address] [place] [address], [place] [phone] * Respiratory virus panel molecular study (06/21/2025 4:32 AM EDT) Adenovirus Detection by PCR Not Detected Not Detected LAB MICROBIOLOGY METHOD 06/21/2025 5:50 AM EDT [facility] Influenza A PCR Not Detected Not Detected LAB MICROBIOLOGY METHOD 06/21/2025 5:50 AM EDT [facility] Influenza B PCR Not Detected Not Detected LAB MICROBIOLOGY METHOD 06/21/2025 5:50 AM EDT [facility] Coronavirus 229E Not Detected Not Detected LAB MICROBIOLOGY METHOD 06/21/2025 5:50 AM EDT [facility] Coronavirus HKU1 Not Detected Not Detected LAB MICROBIOLOGY METHOD 06/21/2025 5:50 AM EDT [facility] Coronavirus OC43 Not Detected Not Detected LAB MICROBIOLOGY METHOD 06/21/2025 5:50 AM EDT [facility] Coronavirus NL63 Not Detected Not Detected LAB MICROBIOLOGY METHOD 06/21/2025 5:50 AM EDT [facility] Parainfluenza Virus 1 Not Detected Not Detected LAB MICROBIOLOGY METHOD 06/21/2025 5:50 AM EDT [facility] Parainfluenza Virus 2 Not Detected Not Detected LAB MICROBIOLOGY METHOD 06/21/2025 5:50 AM EDT [facility] Parainfluenza Virus 3 Not Detected Not Detected LAB MICROBIOLOGY METHOD 06/21/2025 5:50 AM EDT [facility] Parainfluenza Virus 4 Not Detected Not Detected LAB MICROBIOLOGY METHOD 06/21/2025 5:50 AM EDT [facility] RSV PCR Not Detected Not Detected LAB MICROBIOLOGY METHOD 06/21/2025 5:50 AM EDT [facility] Human Metapneumovirus A and B Not Detected Not Detected LAB MICROBIOLOGY METHOD 06/21/2025 5:50 AM EDT [facility] Rhinovirus/Entero virus Not Detected Not Detected LAB MICROBIOLOGY METHOD 06/21/2025 5:50 AM EDT [facility] Bordetella pertussis Not Detected Not Detected LAB MICROBIOLOGY METHOD 06/21/2025 5:50 AM EDT [facility] Bordetella parapertussis Not Detected Not Detected LAB MICROBIOLOGY METHOD 06/21/2025 5:50 AM EDT [facility] Mycoplasma pneumo by PCR Not Detected Not Detected LAB MICROBIOLOGY METHOD 06/21/2025 5:50 AM EDT [facility] Chlamydia pneumoniae Not Detected Not Detected LAB MICROBIOLOGY METHOD 06/21/2025 5:50 AM EDT [facility] SARS COV-2 Not Detected Not Detected LAB MICROBIOLOGY METHOD 06/21/2025 5:50 AM EDT [facility] Swab Both anterior nares / Unknown Non-blood Collection / Unknown 06/21/2025 4:32 AM EDT 06/21/2025 4:58 AM EDT [facility] - 06/21/2025 5:50 AM EDT Testing was performed using the youcalce Respiratory Pathogen PCR Assay. All results must [...] are below the limit of detection. us Edwar SUAREZ LAB MICROBIOLOGY - GENERAL ORDER ALEJANDRA Final Result [facility] [address] [place] [address], [place] [phone] * (ABNORMAL) Venous blood gas (06/21/2025 4:13 AM EDT) pH, Justino 7.38 7.32 - 7.42 pH 06/21/2025 4:24 AM T [facility] pCO2, Justino 57(H) 41 - 51 mmHg 06/21/2025 4:24 AM EDT [facility] pO2, Justino 47(H) 25 - 40 mmHg 06/21/2025 4:24 AM EDT [facility] HCO3, Venous 30.4(H) 22.0 - 26.0 mmol/L 06/21/2025 4:24 AM EDT [facility] O2 Sat, Justino 78.7 % 06/21/2025 4:24 AM [facility] Base Excess, Justino 7.5(H) -2.0 - 2.0 mmol/L 06/21/2025 4:24 AM T [facility] Blood Venous blood specimen / Unknown Venipuncture / Unknown 06/21/2025 4:13 AM EDT 06/21/2025 4:19 AM EDT us Edwar SUAREZ LAB BLOOD ORDERABLES Final Resul t [facility] [address] [place] [address], * (ABNORMAL) CBC auto differential (06/21/2025 4:13 AM EDT) WBC 5.4 4.8 - 10.8 K/[facility] LAB HEMETOLOGY METHOD 06/21/2025 4:40 AM EDT [facility] RBC 3.50(L) 3.80 - 4.80 M/[facility] LAB HEMETOLOGY METHOD 06/21/2025 4:40 AM EDT [facility] Hemoglobin 7.7(L) 11.5 - 16.0 g/dL LAB HEMETOLOGY METHOD 06/21/2025 4:40 AM [facility] Hematocrit 28.0(L) 35.0 - 47.0 % LAB HEMETOLOGY METHOD 06/21/2025 4:40 AM [facility] MCV 79.5 79.0 - 98.0 FL LAB HEMETOLOGY METHOD 06/21/2025 4:40 AM [facility] MCH 21.9(L) 27.0 - 32.0 pcg LAB HEMETOLOGY METHOD 06/21/2025 4:40 AM [facility] MCHC 27.5(L) 32.0 - 37.0 g/dL LAB HEMETOLOGY METHOD 06/21/2025 4:40 AM [facility] RDW 19.1(H) 11.0 - 15.0 % LAB HEMETOLOGY METHOD 06/21/2025 4:40 AM [facility] Platelets 216 130 - 400 K/mcL LAB HEMETOLOGY METHOD 06/21/2025 4:40 AM [facility] MPV 9.6 7.0 - 11.0 FL LAB HEMETOLOGY METHOD 06/21/2025 4:40 AM [facility] NRBC 0.0 <1.0 % LAB HEMETOLOGY METHOD 06/21/2025 4:40 AM [facility] NRBC Absolute 0.00 <0.10 K/mcL LAB HEMETOLOGY METHOD 06/21/2025 4:40 AM [facility] Neutrophils Relative 82.4 % LAB HEMETOLOGY METHOD 06/21/2025 4:40 AM [facility] Lymphocytes Relative 15.5 % LAB HEMETOLOGY METHOD 06/21/2025 4:40 AM [facility] Monocytes Relative 1.7 % LAB HEMETOLOGY METHOD 06/21/2025 4:40 AM EDT [facility] Eosinophils Relative 0.0 % LAB HEMETOLOGY METHOD 06/21/2025 4:40 AM EDT [facility] Basophils Relative 0.2 % LAB HEMETOLOGY METHOD 06/21/2025 4:40 AM EDT [facility] Immature Granulocytes Relative 0.2 % LAB HEMETOLOGY METHOD 06/21/2025 4:40 AM EDT [facility] Neutrophils Absolute 4.41 1.50 - 7.00 K/mcL LAB HEMETOLOGY METHOD 06/21/2025 4:40 AM EDT [facility] Lymphocytes Absolute 0.83(L) 1.00 - 5.00 K/mcL LAB HEMETOLOGY METHOD 06/21/2025 4:40 AM EDT [facility] Monocytes Absolute 0.09(L) 0.20 - 1.00 K/mcL LAB HEMETOLOGY METHOD 06/21/2025 4:40 AM EDT [facility] Eosinophils Absolute 0.00 0.00 - 0.50 K/mcL LAB HEMETOLOGY METHOD 06/21/2025 4:40 AM EDT [facility] Basophils Absolute 0.01 0.00 - 0.20 K/mcL LAB HEMETOLOGY METHOD 06/21/2025 4:40 AM EDT [facility] Immature Granulocytes Absolute 0.01 0.00 - 0.03 K/mcL LAB HEMETOLOGY METHOD 06/21/2025 4:40 AM EDT [facility] Blood Venous blood specimen / Unknown Venipuncture / Unknown 06/21/2025 4:13 AM EDT 06/21/2025 4:21 AM EDT us Edwar SUAREZ LAB BLOOD ORDERABLES Final Resul t [facility] [address] [place] [address], * (ABNORMAL) Procalcitonin (06/21/2025 4:13 AM EDT) Procalcitonin 0.35(H) <=0.16 ng/mL LAB CHEMISTRY METHOD 06/21/2025 11:57 AM EDT [facility] Blood Venous blood specimen / Unknown Venipuncture / Unknown 06/21/2025 4:13 AM EDT 06/21/2025 4:21 AM EDT Narrative [facility] - 06/21/2025 11:57 AM EDT Procalcitonin > 2.00 ng/ml: Procalcitonin Levels above [...] any concentrations <2.0 ng/mL are obtained. us Edwar SUAREZ LAB BLOOD ORDERABLES Final Resul t [facility] [address] [place] [address], * Phosphorus (06/21/2025 4:13 AM EDT) Phosphorus 3.4 2.5 - 4.5 mg/dL LAB CHEMISTRY METHOD 06/21/2025 4:53 AM EDT [facility] Blood Venous blood specimen / Unknown Venipuncture / Unknown 06/21/2025 4:13 AM EDT 06/21/2025 4:21 AM EDT us Edwar SUAREZ LAB BLOOD ORDERABLES Final Resul t Performing Organization Address [facility] Co de Phone Number [facility] [address] [place] [address], [place] [phone] * Magnesium (06/21/2025 4:13 AM EDT) Magnesium 2.3 1.9 - 2.6 mg/dL LAB CHEMISTRY METHOD 06/21/2025 4:53 AM EDT [facility] Blood Venous blood specimen / Unknown Venipuncture / Unknown 06/21/2025 4:13 AM EDT 06/21/2025 4:21 AM EDT us Edwar SUAREZ LAB BLOOD ORDERABLES Final Resul t Performing Organization Address [facility]/[place] de Phone Number [facility] [address] [place] [address], [place] [phone] * (ABNORMAL) Calcium, ionized (06/21/2025 4:13 AM EDT) Calcium Ionized 4.45(L) 4.50 - 5.30 mg/dL 06/21/2025 4:34 AM EDT [facility] Blood Venous blood specimen / Unknown Venipuncture / Unknown 06/21/2025 4:13 AM EDT 06/21/2025 4:21 AM EDT us Edwar SUAREZ LAB BLOOD ORDERABLES Final Resul t Performing Organization Address City/[facility]/ZIP Co de Phone Number [facility] [address] [place] [address], [place] [phone] * (ABNORMAL) Comprehensive metabolic panel (06/21/2025 4:13 AM EDT) Sodium 139 133 - 145 mmol/L LAB CHEMISTRY METHOD 06/21/2025 4:59 AM [facility] Potassium 4.1 3.5 - 5.5 mmol/L LAB CHEMISTRY METHOD 06/21/2025 4:59 AM [facility] Chloride 105 96 - 110 mmol/L LAB CHEMISTRY METHOD 06/21/2025 4:59 AM [facility] CO2 33(H) 21 - 32 mmol/L LAB CHEMISTRY METHOD 06/21/2025 4:59 AM [facility] Anion Gap 1(L) 3 - 11 LAB CHEMISTRY METHOD 06/21/2025 4:59 AM [facility] Glucose 84 70 - 100 mg/dL LAB CHEMISTRY METHOD 06/21/2025 4:59 AM [facility] BUN 19 5 - 25 mg/dL LAB CHEMISTRY METHOD 06/21/2025 4:59 AM [facility] Creatinine 0.31(L) 0.50 - 1.10 mg/dL LAB CHEMISTRY METHOD 06/21/2025 4:59 AM [facility] eGFR 144 >=60 mL/min/1. 73m2 LAB CHEMISTRY METHOD 06/21/2025 4:59 AM [facility] Comment:Calculation based on the Chronic Kidney Disease Epidemiology Collaboration (CKD-EPI) equation refit without adjustment for race. BUN/Creatinine Ratio 61.3 LAB CHEMISTRY METHOD 06/21/2025 4:59 AM [facility] Calcium 7.9(L) 8.5 - 10.5 mg/dL LAB CHEMISTRY METHOD 06/21/2025 4:59 AM [facility] AST (SGOT) 19 10 - 42 unit/L LAB CHEMISTRY METHOD 06/21/2025 4:59 AM [facility] ALT (SGPT) 8(L) 10 - 60 unit/L LAB CHEMISTRY METHOD 06/21/2025 4:59 AM EDT [facility] Alkaline Phosphatase 63 42 - 121 unit/L LAB CHEMISTRY METHOD 06/21/2025 4:59 AM EDT [facility] Total Protein 7.4 6.0 - 8.0 g/dL LAB CHEMISTRY METHOD 06/21/2025 4:59 AM EDT [facility] Albumin 2.5(L) 3.2 - 5.0 g/dL LAB CHEMISTRY METHOD 06/21/2025 4:59 AM EDT [facility] Total Bilirubin 0.3 0.0 - 1.4 mg/dL LAB CHEMISTRY METHOD 06/21/2025 4:59 AM EDT [facility] Blood Venous blood specimen / Unknown Venipuncture / Unknown 06/21/2025 4:13 AM EDT 06/21/2025 4:21 AM EDT Edwar SUAREZ LAB BLOOD ORDERABLES Final Resul t [facility] [address] [place] [address], [place] [phone] * MRSA molecular study (06/21/2025 4:13 AM EDT) [facility] MRSA Screen PCR Not Detected Not Detected LAB MICROBIOLOGY METHOD 06/21/2025 9:00 AM EDT [facility] Swab Both anterior nares / Unknown Non-blood Collection / Unknown 06/21/2025 4:13 AM EDT 06/21/2025 4:32 AM EDT Ronnie Sierra MD LAB MICROBIOLOGY - GENERAL ORDER ALEJANDRA Final Result [facility] [address] [place] [address], [place] [phone] * POCT Glucose, blood (06/21/2025 2:45 AM EDT) Glucose POCT 89 70 - 100 mg/dL 06/21/2025 2:46 AM EDT [facility] Blood Capillary blood specimen / Unknown 06/21/2025 2:45 AM EDT 06/21/2025 2:47 AM EDT us Ronnie Sierra MD LAB POINT OF CARE TE ST DOCKED DEVICE UNSOLICITED RESULTS Final Result [facility] [address] [place] [address], [place] [phone] * Vascular US duplex lower extremity venous bilateral (06/21/2025 2:38 AM EDT) Anatomical Region Laterality Modality Vascular, Abdomen Ultrasound 06/21/2025 4:30 AM EDT Addenda Addendum by Ji Frias MD on 06/21/2025 4:38 AM EDT ADDENDUM: This report was discussed with ERICK Cerda on Jun 21, 2025 04:38:00 EDT. This document has been electronically signed by: Polina Dhillon on 06/21/2025 04:38:45 Impressions 06/21/2025 4:30 AM EDT 1. Nonocclusive thrombus present at the left common femoral vein. 2. Negative for right lower extremity deep vein thrombosis. This document has been electronically signed by: Ji Frias MD on 06/21/2025 04:30:23 Narrative 06/21/2025 4:30 AM EDT INDICATION: DVT Hx Venous duplex ultrasound bilateral lower extremity Comparison: None provided Findings: The visualized deep veins of the right lower extremity are fully compressible with normal Doppler color flow and spectral tracings. Nonocclusive thrombus present at the left common femoral vein. The remainder of the deep veins of the left lower extremity appear patent. No popliteal cyst. Procedure Note Ji Frias MD - 06/21/2025 INDICATION: DVT Hx Venous duplex ultrasound bilateral lower extremity Comparison: None provided Findings: The visualized deep veins of the right lower extremity are fully compressible with normal Doppler color flow and spectral tracings. Nonocclusive thrombus present at the left common femoral vein. The remainder of the deep veins of the left lower extremity appear patent. No popliteal cyst. IMPRESSION: 1. Nonocclusive thrombus present at the left common femoral vein. 2. Negative for right lower extremity deep vein thrombosis. This document has been electronically signed by: Ji Frias MD on 06/21/2025 04:30:23 Edwar SUAREZ CV VASCULAR PROCEDURES Edited Re sult - Final * XR Chest 1 View (06/21/2025 1:58 AM EDT) Anatomical Region Laterality Modality Body Radiographic Liliana ging 06/21/2025 9:04 AM EDT Impressions 06/21/2025 9:13 AM EDT FINDINGS/IMPRESSION: Tracheostomy and left subclavian catheter remain in place. Low lung volumes with lungs unchanged. Small bilateral pleural effusions and adjacent atelectasis. No pneumothorax. Cardiac silhouette and bones are stable. -------- FINAL REPORT -------- Dictated By: SHANNON MACKAY Dictated Date: 06/21/2025 09:04 ET Assigned Physician: SHANNON MACKAY Reviewed and Electronically Signed By: SHANNON MACKAY Signed Date: 06/21/2025 09:13 ET Workstation ID: [id number] Transcribed By: Self Edit Transcribed Date: 06/21/2025 09:04 ET Narrative 06/21/2025 9:13 AM EDT XR CHEST 1 VIEW INDICATION: Line placement, shortness of breath TECHNIQUE: XR CHEST 1 VIEW COMPARISON: 06/20/2025 Procedure Note Shannon Mackay MD - 06/21/2025 XR CHEST 1 VIEW INDICATION: Line placement, shortness of breath TECHNIQUE: XR CHEST 1 VIEW COMPARISON: 06/20/2025 IMPRESSION: FINDINGS/IMPRESSION: Tracheostomy and left subclavian catheter remain inplace. Low lung volumes with lungs unchanged. Small bilateral pleuraleffusions and adjacent atelectasis. No pneumothorax. Cardiac silhouetteand bones are stable. -------- FINAL REPORT -------- Dictated By: SHANNON MACKAY Dictated Date: 06/21/2025 09:04 ET Assigned Physician: SHANNON MACKAY Reviewed and Electronically Signed By: SHANNON MACKAY Signed Date: 06/21/2025 09:13 ET Workstation ID: [id number] Transcribed By: Self Edit Transcribed Date: 06/21/2025 09:04 ET us Edwar Angeles PA IMG XR PROCEDURES Final Result * CT Angio Chest wo and/or w Contrast (06/21/2025 12:09 AM EDT) Anatomical Region Laterality Modality Body Computed Tomogra phy 06/21/2025 1:37 AM EDT Impressions 06/21/2025 1:37 AM EDT Impression: 1. Mildly limited examination related to artifact from the patient's arms, limiting evaluation of the segmental and subsegmental pulmonary arterial branches at the bilateral lower lobes. No convincing CT evidence for pulmonary embolism on this exam. 2. Mild dependent opacities present within the lungs bilaterally, most prominent at the bilateral lower lobes, possibly consistent with atelectasis or infiltrates. No pneumothorax or pleural effusion identified. 3. Dilation of the main pulmonary artery up to 3.5 cm in diameter, suggesting pulmonary arterial hypertension. 4. Borderline prominent supraclavicular and right axillary lymph nodes with enlarged left axillary lymph nodes. These findings are of uncertain etiology. Clinical correlation is advised. Thoracic dextroscoliosis. This document has been electronically signed by: Ji Frias MD on 06/21/2025 01:37:23 Narrative 06/21/2025 1:37 AM EDT INDICATION: PE suspected, high prob CT angiography chest using contrast. 3-D postprocessing Comparison: CT - CT CHEST WO CONTRAST - 06/12/25 17:28 EDT Findings: This examination is mildly limited by artifact related to the patient's arms. This limits evaluation of the segmental and subsegmental pulmonary arterial branches of the bilateral lower lobes. Linear filling defect identified within a left upper lobe pulmonary arterial branch on image number 123 of series 2, favored to represent artifact given its appearance. No pulmonary embolism. There is dilation of the main pulmonary artery up to 3.5 cm in diameter, suggesting pulmonary arterial hypertension. No thoracic aorta aneurysm. Borderline prominent supraclavicular and right axillary lymph nodes with enlarged left axillary lymph nodes. Heart size within normal limits. RV/LV ratio normal. Tracheostomy tube in place above the bam. Mild opacities are present dependently within the lungs bilaterally, greatest at the bilateral lower lobes. No pneumothorax or pleural effusion. Evaluation of the lungs is mildly limited by artifact. Visualized upper abdomen unremarkable. Evaluation of the upper abdomen is limited by artifact. No acute fractures. Dextroscoliosis present at the thoracic spine. Procedure Note Ji Frias MD - 06/21/2025 INDICATION: PE suspected, high prob CT angiography chest using contrast. 3-D postprocessing Comparison: CT - CT CHEST WO CONTRAST - 06/12/25 17:28 EDT Findings: This examination is mildly limited by artifact related to the patient's arms. This limits evaluation of the segmental and subsegmental pulmonary arterial branches of the bilateral lower lobes. Linear filling defect identified within a left upper lobe pulmonary arterial branch on image number 123 of series 2, favored to represent artifact given its appearance. No pulmonary embolism. There is dilation of the mainpulmonary artery up to 3.5 cm in diameter, suggesting pulmonary arterial hypertension. No thoracic aorta aneurysm. Borderline prominent supraclavicular andright axillary lymph nodes with enlarged left axillary lymph nodes. Heart size within normal limits. RV/LV ratio normal. Tracheostomy tube in place above the bam. Mild opacities are present dependently within the lungs bilaterally, greatest at the bilaterallower lobes. No pneumothorax or pleural effusion. Evaluation of the lungs is mildly limited by artifact. Visualized upper abdomen unremarkable. Evaluation of the upper abdomenis limited by artifact. No acute fractures. Dextroscoliosis present at the thoracic spine. IMPRESSION: Impression: 1. Mildly limited examination related to artifact from the patient'sarms, limiting evaluation of the segmental and subsegmental pulmonary arterial branches at the bilateral lower lobes. No convincing CT evidence for pulmonary embolism on this exam. 2. Mild dependent opacities present within the lungs bilaterally, most prominent at the bilateral lower lobes, possibly consistent with atelectasis or infiltrates. No pneumothorax or pleural effusionidentified. 3. Dilation of the main pulmonary artery up to 3.5 cm in diameter, suggesting pulmonary arterial hypertension. 4. Borderline prominent supraclavicular and right axillary lymph nodes with enlarged left axillary lymph nodes. These findings are of uncertain etiology. Clinical correlation is advised. Thoracic dextroscoliosis. This document has been electronically signed by: Ji Frias MD on 06/21/2025 01:37:23 Ronnei Sierra MD IMG CT PROCEDURES Final Result * ECG-Annotated (06/21/2025) Provider Onbase ECG ORDERABLES Final Result * POCT Glucose, blood (06/20/2025 10:50 PM EDT) [facility] Glucose POCT 100 70 - 100 mg/dL 06/20/2025 10:52 PM EDT [facility] Blood Capillary blood specimen / Unknown 06/20/2025 10:50 PM EDT 06/20/2025 10:53 PM EDT Ronnie Sierra MD LAB POINT OF CARE TE ST DOCKED DEVICE UNSOLICITED RESULTS Final Result [facility] [address] [place] [address], [place] [phone] * hCG, serum, qualitative (06/20/2025 10:12 PM EDT) [facility] hCG Qual Negative Negative 06/20/2025 11:30 PM EDT [facility] Blood Venous blood specimen / Unknown 06/20/2025 10:12 PM EDT 06/20/2025 10:19 PM EDT Edwar SUAREZ LAB BLOOD ORDERABLES Final Resul t [facility] [address] [place] [address], [place] [phone] * SST tube (06/20/2025 10:12 PM EDT) [facility] Extra Tube Hold for add-ons. 06/21/2025 12:01 AM EDT [facility] Comment:Auto resulted. Blood Venous blood specimen / Unknown 06/20/2025 10:12 PM EDT 06/20/2025 10:19 PM EDT us Ronnie Sierra MD LAB BLOOD ORDERABLES Final Resul t Performing Organization Address City/[facility]/ZIP Co de Phone Number [facility] [address] [place] [address], [place] [phone] * B-type natriuretic peptide (06/20/2025 10:12 PM EDT) [facility] BNP 93 <=100 pcg/mL LAB CHEMISTRY METHOD 06/20/2025 11:05 PM EDT [facility] Blood Venous blood specimen / Unknown Venipuncture / Unknown 06/20/2025 10:12 PM EDT 06/20/2025 10:18 PM EDT us Edwar SUAREZ LAB BLOOD ORDERABLES Final Resul t Performing Organization Address [facility] Co de Phone Number [facility] [address] [place] [address], [place] [phone] * APTT (06/20/2025 10:12 PM EDT) [facility] aPTT 30.7 24.1 - 39.3 sec LAB COAGULATION METHOD 06/20/2025 10:44 PM EDT [facility] Blood Venous blood specimen / Unknown Venipuncture / Unknown 06/20/2025 10:12 PM EDT 06/20/2025 10:44 PM EDT us Ronnie Sierra MD LAB BLOOD ORDERABLES Final Resul t Performing Organization Address City/[facility]/ZIP Co de Phone Number [facility] [address] [place] [address], [place] [phone] * Protime-INR (06/20/2025 10:12 PM EDT) [facility] Protime 13.6 10.6 - 13.9 sec LAB COAGULATION METHOD 06/20/2025 10:44 PM EDT [facility] INR 1.1 LAB COAGULATION METHOD 06/20/2025 10:44 PM EDT [facility] Blood Venous blood specimen / Unknown Venipuncture / Unknown 06/20/2025 10:12 PM EDT 06/20/2025 10:44 PM EDT us Ronnie Sierra MD LAB BLOOD ORDERABLES Final Resul t Performing Organization Address [facility]/ZIP Co de Phone Number [facility] [address] [place] [address], [place] [phone] * Troponin I high sensitivity (06/20/2025 10:12 PM EDT) [facility] High Sensitivity Troponin I 12 <=54 ng/L LAB CHEMISTRY METHOD 06/20/2025 10:57 PM EDT [facility] Blood Venous blood specimen / Unknown Venipuncture / Unknown 06/20/2025 10:12 PM EDT 06/20/2025 10:18 PM EDT Narrative [facility] - 06/20/2025 10:57 PM EDT High levels of biotin in samples may falsely decrease hsTroponin values. Use caution when interpreting hsTroponin results in patients taking biotin who exhibit renal impairment (eGFR <60) or in patients taking more than 20 mg/day of biotin. us Ronnie Sierra MD LAB BLOOD ORDERABLES Final Resul t [facility] [address] [place] [address], [place] [phone] * Protime-INR (06/20/2025 8:39 PM EDT) Blood Venous blood specimen / Unknown Venipuncture / Unknown 06/20/2025 8:39 PM EDT 06/20/2025 8:45 PM EDT Narrative [facility] - 06/20/2025 9:39 PM EDT The previously reported component Protime is no longer being reported.The previously reported component INR is no longer being reported. us Ronnie Sierra MD LAB BLOOD ORDERABLES Edited Resu lt - Final Performing Organization Address [facility]/ZIP Co de Phone Number [facility] [address] [place] [address], [place] [phone] * (ABNORMAL) Magnesium (06/20/2025 8:39 PM EDT) Magnesium 1.8(L) 1.9 - 2.6 mg/dL LAB CHEMISTRY METHOD 06/20/2025 9:12 PM EDT [facility] Blood Venous blood specimen / Unknown Venipuncture / Unknown 06/20/2025 8:39 PM EDT 06/20/2025 8:45 PM EDT us Ronnie Sierra MD LAB BLOOD ORDERABLES Final Resul t Performing Organization Address [facility]/ZIP Co de Phone Number [facility] [address] [place] [address], [place] [phone] * (ABNORMAL) Comprehensive Metabolic Panel (CMP) (06/20/2025 8:39 PM EDT) Sodium 136 133 - 145 mmol/L LAB CHEMISTRY METHOD 06/20/2025 9:12 PM EDT [facility] Potassium 5.2 3.5 - 5.5 mmol/L LAB CHEMISTRY METHOD 06/20/2025 9:12 PM EDT [facility] Chloride 100 96 - 110 mmol/L LAB CHEMISTRY METHOD 06/20/2025 9:12 PM EDT [facility] CO2 34(H) 21 - 32 mmol/L LAB CHEMISTRY METHOD 06/20/2025 9:12 PM [facility] Anion Gap 2(L) 3 - 11 LAB CHEMISTRY METHOD 06/20/2025 9:12 PM [facility] Glucose 89 70 - 100 mg/dL LAB CHEMISTRY METHOD 06/20/2025 9:12 PM [facility] BUN 20 5 - 25 mg/dL LAB CHEMISTRY METHOD 06/20/2025 9:12 PM [facility] Creatinine 0.34(L) 0.50 - 1.10 mg/dL LAB CHEMISTRY METHOD 06/20/2025 9:12 PM [facility] eGFR 140 >=60 mL/min/1. 73m2 LAB CHEMISTRY METHOD 06/20/2025 9:12 PM [facility] Comment:Calculation based on the Chronic Kidney Disease Epidemiology Collaboration (CKD-EPI) equation refit without adjustment for race. BUN/Creatinine Ratio 58.8 LAB CHEMISTRY METHOD 06/20/2025 9:12 PM [facility] Calcium 8.8 8.5 - 10.5 mg/dL LAB CHEMISTRY METHOD 06/20/2025 9:12 PM [facility] AST (SGOT) 37 10 - 42 unit/L LAB CHEMISTRY METHOD 06/20/2025 9:12 PM [facility] ALT (SGPT) 12 10 - 60 unit/L LAB CHEMISTRY METHOD 06/20/2025 9:12 PM [facility] Alkaline Phosphatase 75 42 - 121 unit/L LAB CHEMISTRY METHOD 06/20/2025 9:12 PM [facility] Total Protein 8.8(H) 6.0 - 8.0 g/dL LAB CHEMISTRY METHOD 06/20/2025 9:12 PM [facility] Albumin 2.9(L) 3.2 - 5.0 g/dL LAB CHEMISTRY METHOD 06/20/2025 9:12 PM EDT [facility] Total Bilirubin 0.3 0.0 - 1.4 mg/dL LAB CHEMISTRY METHOD 06/20/2025 9:12 PM EDT [facility] Blood Venous blood specimen / Unknown Venipuncture / Unknown 06/20/2025 8:39 PM EDT 06/20/2025 8:45 PM EDT us Ronnie Sierra MD LAB BLOOD ORDERABLES Final Resul t [facility] [address] [place] [address], * XR Chest 1 View (06/20/2025 8:27 PM EDT) Anatomical Region Laterality Modality Body Radiographic Liliana ging 06/21/2025 8:55 AM EDT Impressions 06/21/2025 8:56 AM EDT No significant interval change. -------- FINAL REPORT -------- Dictated By: Robert Richardson Dictated Date: 06/21/2025 08:55 ET Assigned Physician: Robert Richardson Reviewed and Electronically Signed By: Robert Richardson Signed Date: 06/21/2025 08:56 ET Workstation ID: [id number] Transcribed By: Self Edit Transcribed Date: 06/21/2025 08:55 ET Narrative 06/21/2025 8:56 AM EDT PROCEDURE: AP chest radiograph. HISTORY: Hypoxemia. COMPARISON: 06/13/2025. FINDINGS: Defibrillator pads project over the right hemithorax and left hemidiaphragm. Tracheostomy tube tip positioned at the thoracic inlet. Hypoventilatory is preoperative. Patchy opacities at the right base are unchanged. Unchanged cardiomediastinal contours. Thoracic scoliosis and degenerative changes of the shoulders. No visible pneumothorax. Procedure Note Robert Richardson MD - 06/21/2025 PROCEDURE: AP chest radiograph. HISTORY: Hypoxemia. COMPARISON: 06/13/2025. FINDINGS: Defibrillator pads project over the right hemithorax and lefthemidiaphragm. Tracheostomy tube tip positioned at the thoracic inlet.Hypoventilatory is preoperative. Patchy opacities at the right base areunchanged. Unchanged cardiomediastinal contours. Thoracic scoliosis anddegenerative changes of the shoulders. No visible pneumothorax. IMPRESSION: No significant interval change. -------- FINAL REPORT -------- Dictated By: Robert Richardson Dictated Date: 06/21/2025 08:55 ET Assigned Physician: Robert Richardson Reviewed and Electronically Signed By: Robert Richardson Signed Date: 06/21/2025 08:56 ET Workstation ID: [id number] Transcribed By: Self Edit Transcribed Date: 06/21/2025 08:55 ET Ronine Sierra MD IMG XR PROCEDURES Final Result * Legionella antigen urine, EIA (06/20/2025 8:18 PM EDT) Pathologist [facility] Legionella Antigen, Ur Negative Negative 06/20/2025 10:34 PM EDT [facility] Urine Urine specimen obtained by clean catch procedure / Unknown Non-blood Collection / Unknown 06/20/2025 8:18 PM EDT 06/20/2025 8:39 PM EDT Narrative [facility] - 06/20/2025 10:34 PM EDT Negative for Legionella pneumophilia serogroup 1 antigen. This presumptive result suggests no current or recent infection due to L. pneumophilia serogroup 1. Culture is recommended if Legionella infection is till suspected, as other serogroups and species of Legionella are not detected by this test. Edwar SUAREZ LAB URINE ORDERABLES Final Resul t [facility] [address] [place] [address], * Culture urine (06/20/2025 8:18 PM EDT) Culture, Urine >100,000 CFU/mL Mixed bacterial morphotypes present suggestive of possible contamination during collection. Suggest appropriate recollection if clinically indicated. 06/21/2025 12:56 PM EDT [facility] Urine Urine specimen obtained by clean catch procedure / Unknown Non-blood Collection / Unknown 06/20/2025 8:18 PM EDT 06/20/2025 8:39 PM EDT us Ronnie Sierra MD LAB MICROBIOLOGY - GENERAL ORDER ALEJANDRA Final Result Performing Organization Address [facility]/ZIP Co de Phone Number [facility] [address] [place] [address], [place] [phone] * [place] urine culture tube (06/20/2025 8:18 PM EDT) Pathologist [facility] Extra Tube Hold for add-ons. 06/20/2025 10:02 PM EDT [facility] Comment:Auto resulted. Urine Urine specimen obtained by clean catch procedure / Unknown Non-blood Collection / Unknown 06/20/2025 8:18 PM EDT 06/20/2025 8:27 PM EDT us Ronnie Sierra MD LAB URINE ORDERABLES Final Resul t Performing Organization Address [facility]/ZIP Co de Phone Number [facility] [address] [place] [address], [place] [phone] * (ABNORMAL) Urinalysis with reflex microscopic and culture (06/20/2025 8:18 PM EDT) Specific [place] Urine 1.023 1.003 - 1.030 LAB URINALYSIS - AUTOMATED METHOD 06/20/2025 8:39 PM EDT [facility] pH, Urine 8.5(A) 5.0 - 8.0 pH LAB URINALYSIS - AUTOMATED METHOD 06/20/2025 8:39 PM EDT [facility] Leukocytes, Urine Trace(A) Negative LAB URINALYSIS - AUTOMATED METHOD 06/20/2025 8:39 PM [facility] Nitrite, Urine Negative Negative LAB URINALYSIS - AUTOMATED METHOD 06/20/2025 8:39 PM [facility] Protein, Urine 30(A) <=Trace mg/dL LAB URINALYSIS - AUTOMATED METHOD 06/20/2025 8:39 PM [facility] Glucose, Urine Negative Negative mg/dL LAB URINALYSIS - AUTOMATED METHOD 06/20/2025 8:39 PM [facility] Ketones, Urine Negative Negative mg/dL LAB URINALYSIS - AUTOMATED METHOD 06/20/2025 8:39 PM [facility] Urobilinogen, Urine 0.2 0.2 - 1.0 mg/dL LAB URINALYSIS - AUTOMATED METHOD 06/20/2025 8:39 PM [facility] Bilirubin, Urine Negative Negative LAB URINALYSIS - AUTOMATED METHOD 06/20/2025 8:39 PM [facility] Blood, Urine Negative Negative LAB URINALYSIS - AUTOMATED METHOD 06/20/2025 8:39 PM [facility] RBC, Urine 4.0 0 - 4 /HPF LAB URINALYSIS - AUTOMATED METHOD 06/20/2025 8:39 PM [facility] WBC, Urine 5.6(H) 0 - 4 /HPF LAB URINALYSIS - AUTOMATED METHOD 06/20/2025 8:39 PM [facility] Squamous Epithelial, Urine 78(H) 0 - 60 /LPF LAB URINALYSIS - AUTOMATED METHOD 06/20/2025 8:39 PM [facility] Bacteria, Urine Negative Negative /HPF LAB URINALYSIS - AUTOMATED METHOD 06/20/2025 8:39 PM [facility] Hyaline Casts, Urine 1.6 0 - 3 /LPF LAB URINALYSIS - AUTOMATED METHOD 06/20/2025 8:39 PM [facility] Urine Urine specimen obtained by clean catch procedure / Unknown Non-blood Collection / Unknown 06/20/2025 8:18 PM EDT 06/20/2025 8:27 PM EDT us Ronnie Sierra MD LAB URINE ORDERABLES Final Resul t Performing Organization Address [facility]/ZIP Co de Phone Number [facility] [address] [place] [address], [place] [phone] * (ABNORMAL) Venous blood gas (06/20/2025 7:50 PM EDT) pH, Justino 7.37 7.32 - 7.42 pH 06/20/2025 8:22 PM EDT [facility] pCO2, Justino 69(HH) 41 - 51 mmHg 06/20/2025 8:22 PM EDT [facility] pO2, Justino 37 25 - 40 mmHg 06/20/2025 8:22 PM EDT [facility] HCO3, Venous 33.6(H) 22.0 - 26.0 mmol/L 06/20/2025 8:22 PM EDT [facility] O2 Sat, Justino 61.6 % 06/20/2025 8:22 PM EDT [facility] Base Excess, Justino 12.2(H) -2.0 - 2.0 mmol/L 06/20/2025 8:22 PM EDT [facility] Blood Venous blood specimen / Unknown Venipuncture / Unknown 06/20/2025 7:50 PM EDT 06/20/2025 8:00 PM EDT us Ronnie Sierra MD LAB BLOOD ORDERABLES Final Resul t Performing Organization Address City/[facility]/ZIP Co de Phone Number [facility] [address] [place] [address], * Culture blood (06/20/2025 7:50 PM EDT) Pathologist [facility] Culture, Blood No growth at 5 days LAB MICROBIOLOGY METHOD 06/25/2025 9:01 PM EDT [facility] Blood Venous blood specimen / Unknown Venipuncture / Unknown 06/20/2025 7:50 PM EDT 06/20/2025 8:01 PM EDT Ronnie Sierra MD LAB MICROBIOLOGY - GENERAL ORDER ALEJANDRA Final Result [facility] [address] [place] [address], * (ABNORMAL) CBC auto differential (06/20/2025 7:41 PM EDT) [facility] WBC 11.0(H) 4.8 - 10.8 K/mcL LAB HEMETOLOGY METHOD 06/20/2025 8:32 PM EDT [facility] RBC 4.50 3.80 - 4.80 M/mcL LAB HEMETOLOGY METHOD 06/20/2025 8:32 PM EDT [facility] Hemoglobin 9.6(L) 11.5 - 16.0 g/dL LAB HEMETOLOGY METHOD 06/20/2025 8:32 PM EDT [facility] Hematocrit 35.7 35.0 - 47.0 % LAB HEMETOLOGY METHOD 06/20/2025 8:32 PM EDT [facility] MCV 79.2 79.0 - 98.0 FL LAB HEMETOLOGY METHOD 06/20/2025 8:32 PM EDT [facility] MCH 21.3(L) 27.0 - 32.0 pcg LAB HEMETOLOGY METHOD 06/20/2025 8:32 PM EDT [facility] MCHC 26.9(L) 32.0 - 37.0 g/dL LAB HEMETOLOGY METHOD 06/20/2025 8:32 PM EDT [facility] RDW 20.1(H) 11.0 - 15.0 % LAB HEMETOLOGY METHOD 06/20/2025 8:[facility] Platelets 268 130 - 400 K/mcL LAB HEMETOLOGY METHOD 06/20/2025 8:32 PM [facility] MPV LAB HEMETOLOGY METHOD 06/20/2025 8:32 PM EDT [facility] Comment:Not Measured NRBC 0.0 <1.0 % LAB HEMETOLOGY METHOD 06/20/2025 8:32 PM [facility] NRBC Absolute 0.00 <0.10 K/[facility] LAB HEMETOLOGY METHOD 06/20/2025 8:32 PM [facility] Neutrophils Relative 90.9 % LAB HEMETOLOGY METHOD 06/20/2025 8:32 PM [facility] Lymphocytes Relative 7.6 % LAB HEMETOLOGY METHOD 06/20/2025 8:32 PM [facility] Monocytes Relative 0.9 % LAB HEMETOLOGY METHOD 06/20/2025 8:32 PM [facility] Eosinophils Relative 0.0 % LAB HEMETOLOGY METHOD 06/20/2025 8:32 PM [facility] Basophils Relative 0.2 % LAB HEMETOLOGY METHOD 06/20/2025 8:32 PM EDT [facility] Immature Granulocytes Relative 0.4 % LAB HEMETOLOGY METHOD 06/20/2025 8:32 PM [facility] Neutrophils Absolute 10.02(H) 1.50 - 7.00 K/mcL LAB HEMETOLOGY METHOD 06/20/2025 8:32 PM [facility] Lymphocytes Absolute 0.84(L) 1.00 - 5.00 K/mcL LAB HEMETOLOGY METHOD 06/20/2025 8:32 PM EDT [facility] Monocytes Absolute 0.10(L) 0.20 - 1.00 K/mcL LAB HEMETOLOGY METHOD 06/20/2025 8:32 PM EDT [facility] Eosinophils Absolute 0.00 0.00 - 0.50 K/[facility] LAB HEMETOLOGY METHOD 06/20/2025 8:32 PM EDT [facility] Basophils Absolute 0.02 0.00 - 0.20 K/[facility] LAB HEMETOLOGY METHOD 06/20/2025 8:32 PM EDT [facility] Immature Granulocytes Absolute 0.04(H) 0.00 - 0.03 K/[facility] LAB HEMETOLOGY METHOD 06/20/2025 8:32 PM EDT [facility] Blood Venous blood specimen / Unknown Venipuncture / Unknown 06/20/2025 7:41 PM EDT 06/20/2025 8:01 PM EDT us Ronnie Sierra MD LAB BLOOD ORDERABLES Final Resul t [facility] [address] [place] [address], [place] [phone] * Culture blood (06/20/2025 7:39 PM EDT) Culture, Blood No growth at 5 days LAB MICROBIOLOGY METHOD 06/25/2025 9:01 PM EDT [facility] Blood Venous blood specimen / Unknown Venipuncture / Unknown 06/20/2025 7:39 PM EDT 06/20/2025 8:01 PM EDT us Ronnie Sierra MD LAB MICROBIOLOGY - GENERAL ORDER ALEJANDRA Final Result [facility] [address] [place] [address], [place] [phone] * Lactate, with reflex (06/20/2025 7:39 PM EDT) [facility] LACTIC ACID 0.8 0.4 - 2.0 mmol/L LAB CHEMISTRY METHOD 06/20/2025 8:35 PM EDT [facility] Blood Venous blood specimen / Unknown Venipuncture / Unknown 06/20/2025 7:39 PM EDT 06/20/2025 8:01 PM EDT us Ronnie Sierra MD LAB BLOOD ORDERABLES Final Resul t Performing Organization Address [facility] Co de Phone Number [facility] [address] [place] [address], * Troponin I high sensitivity (06/20/2025 7:39 PM EDT) [facility] High Sensitivity Troponin I 12 <=54 ng/L LAB CHEMISTRY METHOD 06/20/2025 8:33 PM EDT [facility] Blood Venous blood specimen / Unknown Venipuncture / Unknown 06/20/2025 7:39 PM EDT 06/20/2025 8:01 PM EDT Narrative [facility] - 06/20/2025 8:33 PM EDT High levels of biotin in samples may falsely decrease hsTroponin values. Use caution when interpreting hsTroponin results in patients taking biotin who exhibit renal impairment (eGFR <60) or in patients taking more than 20 mg/day of biotin. us Ronnie Sierra MD LAB BLOOD ORDERABLES Final Resul t Performing Organization Address [facility]/ZIP Co de Phone Number [facility] [address] [place] [address], * ECG 12 lead (06/20/2025 7:16 PM EDT) [facility] Ventricular Rate ECG 136 BPM GEMUSE Atrial Rate 136 BPM GEMUSE P-R Interval 136 ms GEMUSE QRS Duration 74 ms GEMUSE Q-T Interval 298 ms GEMUSE QTc 448 ms GEMUSE P Wave Crooks 43 degrees GEMUSE R Crooks 17 degrees GEMUSE T Crooks 21 degrees GEMUSE ECG Interpretation Sinus tachycardia When compared with ECG of 31-MAY-2025 14:42, No significant change was found Confirmed by ABHAY ARREOLA ([id number]) on 06/21/2025 11:34:51 PM GEMUSE 06/20/2025 7:16 PM EDT 06/21/2025 11:34 PM EDT us Ronnie Sierra MD ECG ORDERABLES Final Result GEMUSE * SC CRITICAL CARE 30-74 MINUTES (06/20/2025 6:57 PM EDT) Narrative Ronnie Sierra MD - 06/20/2025 6:57 PM EDT Ronnie Sierra MD 06/20/2025 10:24 PM Critical Care Performed by: Ronnie Sierra MD Authorized by: Ronnie Sierra MD Critical care provider statement: Critical care time (minutes): 40 Total face to face critical care time (minutes): 40 Critical care time was exclusive of: Separately billable procedures and treating other patients Critical care was necessary to treat or prevent imminent or life-threatening deterioration of the following conditions: Respiratory failure Critical care was time spent personally by me on the following activities: Development of treatment plan with patient or surrogate, discussions with consultants, evaluation of patient's response to treatment, ordering and review of laboratory studies, ordering and review of radiographic studies, re-evaluation of patient's condition, review of old charts, ordering and performing treatments and interventions and examination of patient Face to face critical care was time spent personally by me on the following activities: Examination of patient, development of treatment plan with patient or surrogate, pulse oximetry, re-evaluation of patient's condition, ordering and review of laboratory studies, ordering and performing treatments and interventions, ventilator management and obtaining history from patient or surrogate I assumed direction of critical care for this patient from another provider in my specialty: no Care discussed with: admitting provider us Ronnie Sierra MD IN CLINIC/BEDSIDE ORDERABLES Fin al Result documented in this encounter Visit Diagnoses Diagnosis Acute on chronic respiratory failure ([facility] V24, [facility] V28)- Primary Hypoxia Hypoxemia Acute respiratory failure with hypoxia ([facility] V24, [facility] V28) Pneumonia due to infectious organism, unspecified laterality, unspecified part of lung Chronic hypoxic respiratory failure ([facility] V24, [facility] V28) Anxiety Anxiety state, unspecified Chronic respiratory failure requiring use of nocturnal mechanical ventilation through tracheostomy ([facility] V24, [facility] V28) Quadriplegia and quadriparesis ([facility] V24, [facility] V28) On mechanically assisted ventilation ([facility] V24, [facility] V28) Immunocompromised state ([facility] V24) Unspecified immunity deficiency Weakness Other malaise and fatigue Respiratory disorder with ventilator dependence ([facility] V24, [facility] V28) Tracheostomy in place ([facility] V24, [facility] V28) Tracheostomy status Functional incontinence Adrenal insufficiency ([facility] V24) Glucocorticoid deficiency Jejunostomy tube in situ ([facility] V24, [facility] V28) Myasthenia gravis ([facility] V24, [facility] V28) Myasthenia gravis without exacerbation Rheumatoid arthritis involving multiple sites with positive rheumatoid factor ([facility] V24, [facility] V28) Failure to thrive in adult Adult failure to thrive Neuromyopathy syndrome ([facility] V24, [facility] V28) Unspecified myoneural disorders Anxiety Anxiety state, unspecified Hypercapnic respiratory failure ([facility] V24, [facility] V28) Myasthenia gravis ([facility] V24, [facility] V28) Myasthenia gravis without exacerbation Rheumatoid arthritis involving multiple sites with positive rheumatoid factor ([facility] V24, [facility] V28) Jejunostomy tube in situ ([facility] V24, [facility] V28) Adrenal insufficiency ([facility] V24) Glucocorticoid deficiency Iron deficiency anemia Unspecified iron deficiency anemia Functional incontinence Failure to thrive in adult Adult failure to thrive Tracheostomy in place ([facility] V24, [facility] V28) Tracheostomy status Weakness Other malaise and fatigue Respiratory disorder with ventilator dependence ([facility] V24, [facility] V28) TOM positive Immunocompromised state ([facility] V24) Unspecified immunity deficiency Atelectasis of both lungs Pulmonary collapse On mechanically assisted ventilation ([facility] V24, [facility] V28) Neuromyopathy syndrome ([facility] V24, [facility] V28) Unspecified myoneural disorders Quadriplegia and quadriparesis ([facility] V24, [facility] V28) Chronic tachycardia Hypoxia Hypoxemia Chronic hypoxic respiratory failure ([facility] V24, [facility] V28) Chronic respiratory failure requiring use of nocturnal mechanical ventilation through tracheostomy ([facility] V24, [facility] V28) documented in this encounter Admitting Diagnoses Diagnosis Acute on chronic respiratory failure ([facility] V24, [facility] V28) Hypoxia Hypoxemia documented in this encounter Administered Medications Inactive Administered Medications - up to 3 most recent administrations Medication Order MAR Action Action Date Dose Rate Site acetaminophen (TYLENOL) tablet 650 mg 650 mg, g-tube, Once, On Fri06/20/25 at 2125, For 1 dose Given 06/20/2025 10:47 PM EDT 650 mg acetylcysteine (MUCOMYST) 100 mg/mL (10 %) solution 400 mg 400 mg (4 mL), nebulization, Every 4 hours, First dose on Fri06/20/25 at 2300 Given 06/22/2025 8:02 AM EDT 400 mg Given 06/22/2025 4:28 AM EDT 400 mg Given 06/22/2025 12:37 AM EDT 400 mg acetylcysteine (MUCOMYST) 100 mg/mL (10 %) solution 400 mg 400 mg (4 mL), nebulization, Every 6 hours, First dose (after last modification) on Fri06/22/25 at 1400 Given 07/01/2025 2:26 AM EDT 400 mg Given 06/30/2025 8:54 PM EDT 400 mg Given 06/30/2025 2:07 PM EDT 400 mg albuterol 2.5 mg /3 mL (0.083 %) nebulizer solution 2.5 mg 2.5 mg, nebulization, Every 2 hours PRN, wheezing, Starting on Fri06/20/25 at 2132 Given 06/20/2025 11:26 PM EDT 2 .5 mg ammonium lactate (LAC-HYDRIN) 12 % lotion Topical, Daily, First dose on Fri06/21/25 at 0900, For 362 days Given 06/30/2025 10:00 AM EDT Given 06/29/2025 9:47 AM EDT Given 06/28/2025 9:42 AM EDT ampicillin-sulbactam (UNASYN) 3 g in sodium chloride 0.9 % 100 mL IVPB 3 g, intravenous, at 200 mL/hr, Administer over 30 Minutes, Every 6 hours, First dose on Fri06/21/25 at 1430, For 7 days, Indication: Pneumonia, Nosocomial New Bag 06/24/2025 9:06 AM EDT 3 g 200 mL/hr New Bag 06/24/2025 3:16 AM EDT 3 g 200 mL/hr New Bag 06/23/2025 7:52 PM EDT 3 g 200 mL/hr busPIRone (BUSPAR) tablet 10 mg 10 mg, oral, 3 times daily, First dose (after last modification) on Fri06/23/25 at 2100 Given 07/01/2025 2:14 PM EDT 10 mg Given 07/01/2025 9:12 AM EDT 10 mg Given 06/30/2025 9:12 PM EDT 10 mg busPIRone (BUSPAR) tablet 5 mg 5 mg, oral, 3 times daily, First dose on Fri06/20/25 at 2135 Given 06/23/2025 1:49 PM EDT 5 mg Given 06/23/2025 9:18 AM EDT 5 mg Given 06/22/2025 8:55 PM EDT 5 mg calcium carbonate-vitamin D 500 mg-5 mcg (200 unit) per tablet 2 tablet 2 tablet, oral, 2 times daily, First dose on Fri06/20/25 at 2135, For 361 days Given 07/01/2025 9:13 AM EDT 2 table ts Given 06/30/2025 9:13 PM EDT 2 tablets Given 06/30/2025 9:59 AM EDT 2 tablets calcium gluconate 1 gram/50 mL IVPB (premix) 1 g 1 g, intravenous, at 50 mL/hr, Administer over 60 Minutes, Once, On Fri06/28/25 at 0630, For 1 dose New Bag 06/28/2025 6:39 AM EDT 1 g 50 mL/hr calcium gluconate 2 gram/100 mL IVPB (premix) 2 g 2 g, intravenous, at 100 mL/hr, Administer over 60 Minutes, Once, On Fri06/21/25 at 0525, For 1 dose New Bag 06/21/2025 6:30 AM EDT 2 g 100 mL/hr cefepime (MAXIPIME) 2 g in sterile water 20 mL IV syringe 2 g, intravenous, Administer over 5 Minutes, Every 8 hours, First dose on Fri06/20/25 at 2144, For 7 days, Indication: Pneumonia, Nosocomial Given 06/21/2025 8:41 AM EDT 2 g Given 06/20/2025 10:38 PM EDT 2 g cefTAZidime (FORTAZ) 1 g in sodium chloride 0.9 % 100 mL IVPB 1 g, intravenous, at 200 mL/hr, Administer over 30 Minutes, Every 8 hours scheduled, First dose on Fri06/24/25 at 1400, For 7 days, Indication: Pneumonia, Nosocomial New Bag 06/27/2025 6:09 AM EDT 1 g 200 mL/hr New Bag 06/26/2025 9:25 PM EDT 1 g 200 mL/hr New Bag 06/26/2025 2:02 PM EDT 1 g 200 mL/hr cefTAZidime (FORTAZ) 2 g in sodium chloride 0.9 % 100 mL IVPB 2 g, intravenous, at 200 mL/hr, Administer over 30 Minutes, Every 8 hours scheduled, First dose (after last modification) on Fri06/27/25 at 1400, For 12 doses, Indication: Pneumonia, Nosocomial New Bag 07/01/2025 6:17 AM EDT 2 g 200 mL/hr New Bag 06/30/2025 9:13 PM EDT 2 g 200 mL/hr New Bag 06/30/2025 3:52 PM EDT 2 g 200 mL/hr chlorhexidine (PERIDEX) 0.12 % solution 15 mL 15 mL, Mouth/Throat, 2 times daily, First dose on Fri06/20/25 at 2200 Given 07/01/2025 9:13 AM EDT 15 mL Given 06/30/2025 9:13 PM EDT 15 mL Given 06/30/2025 9:59 AM EDT 15 mL dexmedeTOMIDine (PRECEDEX) 200 mcg in sodium chloride 0.9 % 50 mL (4 mcg/mL) infusion 0.2-1.5 mcg/kg/hr 74.3 kg (3.715-27.8625 mL/hr, rounded to 3.72-27.86 mL/hr), intravenous, Continuous, Starting on Fri06/20/25 at 2140, *If the patient FAILS the SAT, the RN will restart previously ordered sedative at one-half of the dose given prior to beginning the SAT* GOAL EFFECT: Titrate to target RASS goal INITIAL RATE: 0.2 mcg/kg/hr USUAL DOSE RANGE: 0.2 - 1.5 mcg/kg/hr TITRATION DOSE: 0.1 mcg/kg/hr TITRATION FREQUENCY: 15 mins CONTACT PRESCRIBER: -If RASS goal NOT achieved at maximum rate *Individual cases may deviate from parameters and would REQUIRE an order from the provider documented in the patient record*, On hold since [facility] 06/23/2025 at 0900 until manually unheld Rate/Dose Verify 06/21/2025 12:00 PM EDT 0.5 mcg/kg/hr 9.29 mL/hr New Bag 06/21/2025 9:12 AM EDT 0.5 mcg/kg/hr 9.29 mL/hr New Bag 06/20/2025 11:02 PM EDT 0.2 mcg/kg/hr 3.72 mL/h r dextrose (D50W) 50% injection 12.5 g 12.5 g, intravenous, Every 15 min PRN, low blood sugar, moderate hypoglycemia *Patient is Unconscious, NPO, unable to swallow: BG 54 - 69 mg/dl*, Starting on Fri06/20/25 at 2140 dextrose (D50W) 50% injection 25 g 25 g, intravenous, Every 15 min PRN, low blood sugar, severe hypoglycemia *Patient is Unconscious, NPO, unable to swallow: BG LESS than 54 mg/dL*, Starting on Fri06/20/25 at 2140 dextrose 15 gram/60 mL oral solution 15 g 15 g, oral, Every 15 min PRN, low blood sugar, hypoglycemia *Patient conscious AND able to drink and swallow safely*, Starting on Fri06/20/25 at 2140 dextrose 15 gram/60 mL oral solution 30 g 30 g, oral, Every 15 min PRN, low blood sugar, hypoglycemia *Patient conscious AND able to drink and swallow safely*, Starting on Fri06/20/25 at 2140 docusate (COLACE) liquid 200 mg 200 mg, oral, Daily, First dose on Fri06/21/25 at 0900 Given 07/01/2025 9:12 AM EDT 200 mg Given 06/24/2025 9:05 AM EDT 200 mg Given 06/21/2025 8:37 AM EDT 200 mg enoxaparin (LOVENOX) injection 40 mg 40 mg, subcutaneous, Every 24 hours scheduled, First dose on Fri06/21/25 at 0900, Indication: VTE/PE Prophylaxis Given 07/01/2025 9:12 AM EDT 40 mg Left Upper Abdomen Given 06/30/2025 9:59 AM EDT 40 mg Ri ght Lower Abdomen Given 06/29/2025 9:46 AM EDT 40 mg Ri ght Lower Abdomen famotidine (PEPCID) 8 mg/mL suspension 20 mg 20 mg, oral, 2 times daily, First dose on Fri06/20/25 at 2300 Given 07/01/2025 9:13 AM EDT 20 mg Given 06/30/2025 9:17 PM EDT 20 mg Given 06/30/2025 9:59 AM EDT 20 mg fentaNYL (PF) (SUBLIMAZE) 50 mcg/mL injection - ADS Override Pull Starting on Fri06/21/25 at 0044, For 1 dose, Created by cabinet override fentaNYL (PF) (SUBLIMAZE) injection 50 mcg 50 mcg, intravenous, Once, On Fri06/21/25 at 0041, For 1 dose Given 06/21/2025 1:01 AM EDT 50 mcg ferrous sulfate 300 mg (60 mg elemental iron)/5 mL liquid 300 mg 300 mg, oral, 2 times daily, First dose on Fri06/20/25 at 2300, Take on an empty stomach with a full glass of water, at least 1 hour before or 2 hours after a meal. May be taken with food if causes an upset stomach. Avoid taking antacids or antibiotics within 2 hours before or after. Ordered as ferrous sulfate. 300 mg ferrous sulfate = 60 mg elemental iron = 5 mL. Given 07/01/2025 9:12 AM EDT 300 mg Given 06/30/2025 9:12 PM EDT 300 mg Given 06/30/2025 9:59 AM EDT 300 mg folic acid (FOLVITE) tablet 1 mg 1 mg, oral, Daily, First dose on Fri06/21/25 at 0900 Given 07/01/2025 9:13 AM EDT 1 mg Given 06/30/2025 9:59 AM EDT 1 mg Given 06/29/2025 9:46 AM EDT 1 mg Glucagon HCl (rDNA) injection 1 mg 1 mg, intramuscular, Once as needed, low blood sugar, severe hypoglycemia, Starting on Fri06/20/25 at 2140, For 1 dose guaiFENesin (ROBITUSSIN) 100 mg/5 mL liquid 200 mg 200 mg, oral, Every 6 hours, First dose on Fri06/27/25 at 0730 Given 07/01/2025 2:13 PM EDT 200 mg Given 07/01/2025 9:14 AM EDT 200 mg Given 06/30/2025 6:30 PM EDT 200 mg guaiFENesin (ROBITUSSIN) 100 mg/5 mL liquid 600 mg 600 mg, oral, 3 times daily PRN, cough, Starting on Fri06/20/25 at 2133 Given 06/21/2025 8:37 AM EDT 600 mg iopamidoL (ISOVUE-370) 370 mg iodine /mL (76 %) injection 100 mL 100 mL, intravenous, Once in imaging, Starting on Fri06/21/25 at 0002, For 1 dose Given 06/21/2025 12:04 AM EDT 90 mL ipratropium-albuteroL (DUONEB) 0.5-2.5 mg/3 mL nebulizer solution 3 mL 3 mL, nebulization, Every 6 hours, First dose on Fri06/21/25 at 0200 Given 07/01/2025 1:24 PM EDT 3 mL Given 07/01/2025 7:51 AM EDT 3 mL Given 07/01/2025 2:26 AM EDT 3 mL LORazepam (ATIVAN) injection 1 mg 1 mg, intravenous, Once, On Fri06/20/25 at 2036, For 1 dose, Prior to IV use, lorazepam injection should be DILUTED with an equal volume of compatible solution; Rate of administration should NOT exceed 2 mg/min. Given 06/20/2025 8:47 PM EDT 1 mg magnesium oxide (MAG-OX) tablet 600 mg 600 mg, oral, 3 times daily, First dose on Fri06/20/25 at 2135 Given 07/01/2025 2:14 PM EDT 600 mg Given 07/01/2025 9:13 AM EDT 600 mg Given 06/30/2025 9:12 PM EDT 600 mg magnesium sulfate 2 gram/50 mL (4 %) IVPB 2 g 2 g, intravenous, at 25 mL/hr, Administer over 2 Hours, Once, On Fri06/20/25 at 2140, For 1 dose New Bag 06/20/2025 10:41 PM EDT 2 g 25 mL/hr magnesium sulfate 2 gram/50 mL (4 %) IVPB 2 g 2 g, intravenous, at 25 mL/hr, Administer over 2 Hours, Once, On Fri06/23/25 at 0800, For 1 dose New Bag 06/23/2025 9:21 AM EDT 2 g 25 mL/hr magnesium sulfate 2 gram/50 mL (4 %) IVPB 2 g 2 g, intravenous, at 25 mL/hr, Administer over 2 Hours, Once, On Fri06/24/25 at 0745, For 1 dose New Bag 06/24/2025 9:02 AM EDT 2 g 25 mL/hr magnesium sulfate 2 gram/50 mL (4 %) IVPB 2 g 2 g, intravenous, at 25 mL/hr, Administer over 2 Hours, Once, On Fri06/26/25 at 0830, For 1 dose New Bag 06/26/2025 10:16 AM EDT 2 g 25 mL/hr magnesium sulfate 2 gram/50 mL (4 %) IVPB 2 g 2 g, intravenous, at 25 mL/hr, Administer over 2 Hours, Once, On Fri06/29/25 at 0545, For 1 dose New Bag 06/29/2025 5:55 AM EDT 2 g 25 mL/hr melatonin tablet 3 mg 3 mg, oral, Nightly PRN, sleep, Starting on Fri06/20/25 at 2133 Given 06/22/2025 8:56 PM EDT 3 mg Given 06/21/2025 9:09 PM EDT 3 mg metoprolol tartrate (LOPRESSOR) tablet 12.5 mg 12.5 mg, oral, Every 8 hours, First dose on Fri06/20/25 at 2300 Given 07/01/2025 2:14 PM EDT 12.5 mg Given 07/01/2025 6:18 AM EDT 12.5 mg Given 06/30/2025 11:21 PM EDT 12.5 mg midodrine (PROAMATINE) tablet 10 mg 10 mg, oral, Every 8 hours, First dose on Fri06/20/25 at 2135 Given 07/01/2025 2:14 PM EDT 10 mg Given 07/01/2025 6:17 AM EDT 10 mg Given 06/30/2025 11:21 PM EDT 10 mg minocycline (MINOCIN) 100 mg in sodium chloride 0.9 % 100 mL IVPB 100 mg, intravenous, at 100 mL/hr, Administer over 60 Minutes, Every 12 hours, First dose on Fri06/21/25 at 1330, For 15 doses, Indication: Pneumonia, Nosocomial New Bag 06/24/2025 1:27 AM EDT 100 mg 100 mL/hr New Bag 06/23/2025 2:05 PM EDT 100 mg 100 mL/hr New Bag 06/23/2025 12:47 AM EDT 100 mg 100 mL/hr piperacillin-tazobactam (ZOSYN) 4.5 g in sodium chloride 0.9 % 100 mL IVPB 4.5 g, intravenous, at 200 mL/hr, Administer over 30 Minutes, Once, On Fri06/20/25 at 2020, For 1 dose, Do not administer through same line as lactated ringer s fluids (LR), Indication: Pneumonia, Nosocomial New Bag 06/20/2025 8:36 PM EDT 4.5 g 200 mL/hr pregabalin (LYRICA) capsule 75 mg 75 mg, j-tube, 2 times daily, First dose on Fri06/23/25 at 1430 Given 07/01/2025 9:13 AM EDT 75 mg Given 06/30/2025 9:12 PM EDT 75 mg Given 06/30/2025 9:59 AM EDT 75 mg pyRIDostigmine (MESTINON) tablet 30 mg 30 mg, oral, 4 times daily, First dose on Fri06/20/25 at 2300 Given 07/01/2025 2:13 PM EDT 30 mg Given 07/01/2025 9:13 AM EDT 30 mg Given 06/30/2025 9:13 PM EDT 30 mg sodium chloride 0.9 % bolus 1,000 mL 1,000 mL, intravenous, at 1,000 mL/hr, Administer over 1 Hours, Once, On Fri06/20/25 at 2132, For 1 dose New Bag 06/20/2025 10:37 PM EDT 1,000 mL 1000 mL/hr sodium chloride 0.9 % bolus 1,000 mL 1,000 mL, intravenous, at 2,000 mL/hr, Administer over 0.5 Hours, Once, On Fri06/21/25 at 0045, For 1 dose New Bag 06/21/2025 12:53 AM EDT 1,000 mL 2000 mL/hr sodium chloride 0.9 % bolus 500 mL 500 mL, intravenous, at 500 mL/hr, Administer over 1 Hours, Once, On Fri06/20/25 at 2002, For 1 dose New Bag 06/20/2025 8:03 PM EDT 500 mL 500 mL/hr sodium chloride 0.9 % flush 10 mL 10 mL, intravenous, Once, On Fri06/21/25 at 0003, For 1 dose Given 06/21/2025 12:05 AM EDT 10 mL traMADoL (ULTRAM) tablet 50 mg 50 mg, oral, Every 4 hours, First dose on Fri06/20/25 at 2135, Indications: painIndications:pain Given 07/01/2025 2:14 PM EDT 50 mg Given 07/01/2025 11:52 AM EDT 50 mg Given 07/01/2025 6:17 AM EDT 50 mg traZODone (DESYREL) tablet 50 mg 50 mg, oral, Nightly, First dose on Fri06/20/25 at 2135 Given 06/30/2025 9:12 PM EDT 50 mg Given 06/29/2025 9:08 PM EDT 50 mg Given 06/28/2025 9:24 PM EDT 50 mg vancomycin (VANCOCIN) IVPB 1,250 mg in 0.9 % sodium chloride 250 mL - CNR 1,250 mg, intravenous, at 166.7 mL/hr, Administer over 90 Minutes, Every 8 hours, First dose on Fri06/21/25 at 0500, For 7 days, Trough goal = 15-18, Indication: Pneumonia, Nosocomial New Bag 06/21/2025 4:52 AM EDT 1,250 mg 166.7 mL/hr vancomycin (VANCOCIN) IVPB 1,500 mg in 0.9 % sodium chloride 500 mL - CNR 1,500 mg (rounded from 1,486 mg = 20 mg/kg 74.3 kg), intravenous, at 333.3 mL/hr, Administer over 90 Minutes, Once, On 06/20/25 at 2001, For 1 dose, Indication: Pneumonia, Nosocomial New Bag 06/20/2025 8:36 PM EDT 1,500 mg 333.3 mL/hr documented in this encounter Discontinued Medications Medication Sig Discontinue Reason Start Date End Da te ferrous sulfate 300 mg (60 mg elemental iron)/5 mL liquid Take 5 mL (300 mg total) by mouth 2 (two) times a day. Stop Taking at Discharge 07/01/2025 calcium carbonate-vitamin D 500 mg-5 mcg (200 unit) per tablet Take 1 tablet by mouth 1 (one) time each day. Stop Taking at Discharge 07/01/2025 busPIRone (BUSPAR) 5 mg tablet Take 1 tablet (5 mg total) by mouth 3 (three) times a day. Stop Taking at Discharge 07/01/2025 chlorhexidine (PERIDEX) 0.12 % solution Use 15 mL in the mouth or throat 2 (two) times a day. Stop Taking at Discharge 07/01/2025 magnesium oxide (MAG-OX) 400 mg magnesium tablet Take 2 tablets (800 mg total) by mouth 3 (three) times a day. Stop Taking at Discharge 07/01/2025 guaiFENesin (ROBITUSSIN) 100 mg/5 mL liquid 10 mL (200 mg total) by j-tube route every 6 (six) hours for 10 days. Stop Taking at Discharge 06/16/2025 07/01/2025 documented as of this encounter Active and Recently Administered Medications Times are shown in EDT. Scheduled Medication Order 06/29/2025 06/30/2025 07/01/2025 acetylcysteine (MUCOMYST) 100 mg/mL (10 %) solution 400 mg (CANCELED) 400 mg (4 mL), nebulization, Every 6 hours, First dose (after last modification) on Fri06/22/25 at 1400 0236 (Given - Provider: Pati Lcay, [employer])0813 (Given - Provider: Brandon Morris, ETHAN)1405 (Given - Provider: Brandon Morris, [employer])2128 (Given - Provider: Cecilia Georges - Comment: RT unavailable) 0215 (Given - Provider: Cecilia Georges)0800 (Given - Provider: Brandon Morris, [employer])1407 (Given - Provider: Brandon Morris, [employer])2053 (Given - Provider: Everton Capellan) 225 (Given - Provider: Everton Capellan) ammonium lactate (LAC-HYDRIN) 12 % lotion Topical, Daily, First dose on Fri06/21/25 at 0900, For 362 days 0947 (Given - Provider: Fay Bess RN) 1000 (Given - Provider: Hussain Rolle, FINA) 0913 (Not Given - Provider: Apryl Haque, FINA - Reason: Patient/Resident/Agent refused - education provided ) busPIRone (BUSPAR) tablet 10 mg 10 mg, oral, 3 times daily, First dose (after last modification) on Fri06/23/25 at 2100 0946 (Given - Provider: Fay Bess RN)1406 (Given - Provider: Fay Bess RN)210 (Given - Provider: Archana Redd RN) 0959 (Given - Provider: Hussain Rolle, FINA)1552 (Given - Provider: Hussain Rolle, FINA)211 (Given - Provider: Brock Ferrara, FINA) 0912 (Given - Provider: Apryl Haque, FINA)1414 (Given - Provider: Apryl Haque, FINA) calcium carbonate-vitamin D 500 mg-5 mcg (200 unit) per tablet 2 tablet 2 tablet, oral, 2 times daily, First dose on Fri06/20/25 at 2135, For 361 days 0946 (Given - Provider: Fay Bess RN)2108 (Given - Provider: Archana Redd RN) 0959 (Given - Provider: Hussain Rolle, FINA)211 (Given - Provider: Brock Ferrara, FINA) 0913 (Given - Provider: Apryl Haque, FINA) cefTAZidime (FORTAZ) 2 g in sodium chloride 0.9 % 100 mL IVPB (COMPLETED) 2 g, intravenous, at 200 mL/hr, Administer over 30 Minutes, Every 8 hours scheduled, First dose (after last modification) on Fri06/27/25 at 1400, For 12 doses, Indication: Pneumonia, Nosocomial 0550 (New Bag - Provider: Bernice Thompson RN)0620 (Stopped - Provider: Bernice Thompson RN)1406 (New Bag - Provider: Fay Bess RN)1439 (Stopped - Provider: Fay Bess RN)2108 (New Bag - Provider: Archana Redd RN)2206 (Stopped - Provider: Archana Redd RN) 0644 (New Bag - Provider: Archana Redd RN)0757 (Stopped - Provider: Hussain Rolle, FINA)1552 (New Bag - Provider: Hussain Rolle, FINA)1611 (Stopped - Provider: Hussain Rolle RN)2113 (New Bag - Provider: Brock Ferrara RN)2143 (Stopped - Provider: Brock Ferrara RN) 0617 (New Bag - Provider: Brock Ferrara RN)0648 (Stopped - Provider: Brock Ferrara RN) chlorhexidine (PERIDEX) 0.12 % solution 15 mL 15 mL, Mouth/Throat, 2 times daily, First dose on Fri06/20/25 at 2200 0946 (Given - Provider: Fay Bess RN)2109 (Given - Provider: Archana Redd RN) 0959 (Given - Provider: Hussain Rolle, FINA)2113 (Given - Provider: Brock Ferrara RN) 0913 (Given - Provider: Apryl Haque, FINA) docusate (COLACE) liquid 200 mg 200 mg, oral, Daily, First dose on Fri06/21/25 at 0900 0958 (Not Given - Provider: Fay Bess RN - Reason: Patient/Resident/Age nt refused - education provided ) 0957 (Not Given - Provider: Hussain Rolle RN - Reason: NPO) 0912 (Given - Provider: Apryl Haque, FINA) enoxaparin (LOVENOX) injection 40 mg 40 mg, subcutaneous, Every 24 hours scheduled, First dose on Fri06/21/25 at 0900, Indication: VTE/PE Prophylaxis 0946 (Given - Provider: Fay Bess RN) 09 (Given - Provider: Hussain Rolle, FINA) 09 (Given - Provider: Apryl Haque, FINA) famotidine (PEPCID) 8 mg/mL suspension 20 mg 20 mg, oral, 2 times daily, First dose on Fri06/20/25 at 2300 0959 (Given - Provider: Fay Bess RN)2107 (Given - Provider: Archana Redd RN) 09 (Given - Provider: Hussain Rolle, FINA)2116 (Given - Provider: Brock Ferrara, FINA) 09 (Given - Provider: Apryl Haque, FINA) ferrous sulfate 300 mg (60 mg elemental iron)/5 mL liquid 300 mg 300 mg, oral, 2 times daily, First dose on Fri06/20/25 at 2300, Take on an empty stomach with a full glass of water, at least 1 hour before or 2 hours after a meal. May be taken with food if causes an upset stomach. Avoid taking antacids or antibiotics within 2 hours before or after. Ordered as ferrous sulfate. 300 mg ferrous sulfate = 60 mg elemental iron = 5 mL. 0946 (Given - Provider: Fay Bess RN)2107 (Given - Provider: Archana Redd RN) 09 (Given - Provider: Hussain Rolle, FINA)2111 (Given - Provider: Brock Ferrara, FINA) 0912 (Given - Provider: Apryl Haque, FINA) folic acid (FOLVITE) tablet 1 mg 1 mg, oral, Daily, First dose on Fri06/21/25 at 0900 0946 (Given - Provider: Fay Bess RN) 0959 (Given - Provider: Hussain Rolle, FINA) 0913 (Given - Provider: Apryl Haque, FINA) guaiFENesin (ROBITUSSIN) 100 mg/5 mL liquid 200 mg 200 mg, oral, Every 6 hours, First dose on Fri06/27/25 at 0730 0120 (Given - Provider: Bernice Thompson RN)0631 (Given - Provider: Bernice Thompson RN)1406 (Given - Provider: Fay Bess RN)1837 (Given - Provider: Fay Bess RN) 0145 (Given - Provider: Archana Redd RN)0641 (Given - Provider: Archana eRdd RN)1330 (Given - Provider: Hussain Rolle, FINA)1830 (Given - Provider: Hussain Rolle, FINA) 0050 (Not Given - Provider: Brock Ferrara RN - Reason: Patient/Resident/Agent refused - education provided )0914 (Given - Provider: Apryl Haque RN)1413 (Given - Provider: Apryl Haque RN)1930 (Canceled Entry - Provider: Automatic Discharge Provider - Comment: Automatically canceled at discontinue of medication order) ipratropium-albuteroL (DUONEB) 0.5-2.5 mg/3 mL nebulizer solution 3 mL 3 mL, nebulization, Every 6 hours, First dose on Fri06/21/25 at 0200 0236 (Given - Provider: Pati Lacy [employer])0813 (Given - Provider: Brandon Morris [employer])1405 (Given - Provider: Brandon Morris RRT)2128 (Given - Provider: Cecilia Georges - Comment: RT unavailable) 0214 (Given - Provider: Cecilia Georges)0759 (Given - Provider: Brandon Morris RRT)1407 (Given - Provider: Brandon Morris RRT)2054 (Given - Provider: Everton Capellan) 0226 (Given - Provider: Everton Capellan)0751 (Given - Provider: Maren Feliz RRT)1324 (Given - Provider: Maren Feliz RRT)2000 (Canceled Entry - Provider: Automatic Discharge Provider - Comment: Automatically canceled at discontinue of medication order) LORazepam (ATIVAN) injection 2 mg 2 mg, intravenous, Once, On Fri06/21/25 at 0041, For 1 dose, Prior to IV use, lorazepam injection should be DILUTED with an equal volume of compatible solution; Rate of administration should NOT exceed 2 mg/min. magnesium oxide (MAG-OX) tablet 600 mg 600 mg, oral, 3 times daily, First dose on Fri06/20/25 at 2135 0946 (Given - Provider: Fay Bess RN)1406 (Given - Provider: Fay Bess RN)2107 (Given - Provider: Archana Redd RN) 0959 (Given - Provider: Hussain Rolle, FINA)1552 (Given - Provider: Hussain Rolle, FINA)2112 (Given - Provider: Brock Ferrara RN) 0913 (Given - Provider: Apryl Haque, FINA)1414 (Given - Provider: Apryl Haque, RN) magnesium sulfate 2 gram/50 mL (4 %) IVPB 2 g (COMPLETED) 2 g, intravenous, at 25 mL/hr, Administer over 2 Hours, Once, On Fri06/29/25 at 0545, For 1 dose 0555 (New Bag - Provider: Bernice Thompson RN)0759 (Stopped - Provider: Hussain Rolle RN) metoprolol tartrate (LOPRESSOR) tablet 12.5 mg 12.5 mg, oral, Every 8 hours, First dose on Fri06/20/25 at 2300 0602 (Given - Provider: Bernice Thompson RN)1406 (Given - Provider: Fay Bess RN)2313 (Given - Provider: Archana Redd RN) 0642 (Given - Provider: Archana Redd RN)1552 (Given - Provider: Hussain Rolle, FINA)2321 (Given - Provider: Brock Ferrara RN) 0618 (Given - Provider: Brock Ferrara RN)1414 (Given - Provider: Apryl Haque, FINA) midodrine (PROAMATINE) tablet 10 mg 10 mg, oral, Every 8 hours, First dose on Fri06/20/25 at 2135 0600 (Given - Provider: Bernice Thompson RN)1415 (Not Given - Provider: Fay Bess RN - Reason: Order parameters not met)2313 (Given - Provider: Archana Redd RN) 0641 (Given - Provider: Archana Redd RN)1552 (Given - Provider: Hussain Rolle RN)2321 (Given - Provider: Brock Ferrara RN) 0617 (Given - Provider: Brock Ferrara RN)1414 (Given - Provider: Apryl Haque, FINA) pregabalin (LYRICA) capsule 75 mg 75 mg, j-tube, 2 times daily, First dose on Fri06/23/25 at 1430 0946 (Given - Provider: Fay Bess RN)2108 (Given - Provider: Archana Redd RN) 0959 (Given - Provider: Hussain Rolel RN)2112 (Given - Provider: Brock Ferrara RN) 0913 (Given - Provider: Apryl Haque RN) pyRIDostigmine (MESTINON) tablet 30 mg 30 mg, oral, 4 times daily, First dose on Fri06/20/25 at 2300 0946 (Given - Provider: Fay Bess RN)1406 (Given - Provider: Fay Bess RN)1813 (Given - Provider: Fay Bess RN)2107 (Given - Provider: Archana Redd RN) 0959 (Given - Provider: Hussain Rolle, FINA)1300 (Given - Provider: Hussain Rolle, FINA)1830 (Given - Provider: Hussain Rolle, FINA)2113 (Given - Provider: Brock Ferrara RN) 0913 (Given - Provider: Apryl Haque RN)1413 (Given - Provider: Apryl Haque RN)1700 (Canceled Entry - Provider: Automatic Discharge Provider - Comment: Automatically canceled at discontinue of medication order) traMADoL (ULTRAM) tablet 50 mg 50 mg, oral, Every 4 hours, First dose on Fri06/20/25 at 2135, Indications: pain 0328 (Given - Provider: Bernice Thompson RN)0631 (Given - Provider: Bernice Thompson RN)1000 (Given - Provider: Fay Bess RN)1406 (Given - Provider: Fay Bess RN)1813 (Given - Provider: Fay Bess RN)2313 (Given - Provider: Archana Redd RN) 0334 (Given - Provider: Archana Redd RN)0641 (Given - Provider: Archana Redd RN)1000 (Given - Provider: Hussain Rolle, FINA)1552 (Given - Provider: Hussain Rolle, FINA)1830 (Given - Provider: Hussain Rolle, FINA)2321 (Given - Provider: Brock Ferrara, RN) 0326 (Given - Provider: Brock Ferrara RN)0617 (Given - Provider: Brock Ferrara RN)1152 (Given - Provider: Apryl Haque, FINA)1414 (Given - Provider: Apryl Haque RN)1900 (Canceled Entry - Provider: Automatic Discharge Provider - Comment: Automatically canceled at discontinue of medication order) traZODone (DESYREL) tablet 50 mg 50 mg, oral, Nightly, First dose on Fri06/20/25 at 2135 2108 (Given - Provider: Archana Redd RN) 211 (Given - Provider: Brock Ferrara RN) PRN Medication Order 06/29/2025 06/30/2025 07/01/2025 albuterol 2.5 mg /3 mL (0.083 %) nebulizer solution 2.5 mg 2.5 mg, nebulization, Every 2 hours PRN, wheezing, Starting on Fri06/20/25 at 2132 dextrose (D50W) 50% injection 12.5 g 12.5 g, intravenous, Every 15 min PRN, low blood sugar, moderate hypoglycemia *Patient is Unconscious, NPO, unable to swallow: BG 54 - 69 mg/dl*, Starting on Fri06/20/25 at 2140 dextrose (D50W) 50% injection 25 g 25 g, intravenous, Every 15 min PRN, low blood sugar, severe hypoglycemia *Patient is Unconscious, NPO, unable to swallow: BG LESS than 54 mg/dL*, Starting on Fri06/20/25 at 2140 dextrose 15 gram/60 mL oral solution 15 g 15 g, oral, Every 15 min PRN, low blood sugar, hypoglycemia *Patient conscious AND able to drink and swallow safely*, Starting on Fri06/20/25 at 2140 dextrose 15 gram/60 mL oral solution 30 g 30 g, oral, Every 15 min PRN, low blood sugar, hypoglycemia *Patient conscious AND able to drink and swallow safely*, Starting on Fri06/20/25 at 2140 Glucagon HCl (rDNA) injection 1 mg 1 mg, intramuscular, Once as needed, low blood sugar, severe hypoglycemia, Starting on Fri06/20/25 at 2140, For 1 dose guaiFENesin (ROBITUSSIN) 100 mg/5 mL liquid 600 mg 600 mg, oral, 3 times daily PRN, cough, Starting on Fri06/20/25 at 2133 melatonin tablet 3 mg 3 mg, oral, Nightly PRN, sleep, Starting on Fri06/20/25 at 2133 documented in this encounter Orders Medications Ordered That Kuldeep ht Not Have Been Administered Count Last Ordered Date First Ordered Date busPIRone (BUSPAR) tablet 10 mg 1 busPIRone (BUSPAR) tablet 5 mg 1 06/23/2025 sodium chloride 0.9 % infusion 1 06/22/2025 LORazepam (ATIVAN) injection 2 mg 1 025 calcium carbonate-vitamin D 500 mg-5 mcg (200 unit) per tablet 1 tablet 1 06/20/2025 dextrose (D50W) 50% injection 12.5 g 1 06/10 dextrose (D50W) 50% injection 25 g 1 2024 dextrose 15 gram/60 mL oral solution 15 g 1 06/20/2025 dextrose 15 gram/60 mL oral solution 30 g 1 06/20/2025 ferrous sulfate 300 mg (60 m g elemental iron)/5 mL liquid 300 mg 1 06/20/2025 Glucagon HCl (rDNA) injection 1 mg 1 2024 insulin lispro injection 2-12 Units 1 06/20 metoprolol succinate (TOPROL -XL) 24 Hour tablet 12.5 mg 1 06/20/2025 piperacillin-tazobactam (ZOS YN) 4.5 g in sodium chloride 0.9 % 100 mL IVPB 2 06/20/2025 Lab Orders Without Results Count Last Ordered D ate First Ordered Date POCT GLUCOSE, BLOOD 16 06/24/2025 06/20/20 25 Consult Count Last Ordered Date First Orde red Date IP CONSULT TO PSYCHIATRY 1 06/22/2025 IP CONSULT TO NUTRITION SERVICES 1 08/12/20 25 IP CONSULT TO SOCIAL WORK 1 06/21/2025 Respiratory Care Count Last Ordered Date First Ordered Date OXYGEN THERAPY, ADULT 14 06/30/20252024 VENTILATOR, ADULT 19 06/30/2025 06/20/2025 Admission Count Last Ordered Date First Orde red Date ADMIT TO INPATIENT 1 06/20/2025 Transfer Count Last Ordered Date First Orde red Date ED TO FLOOR BED REQUEST 1 06/20/2025 Discharge Count Last Ordered Date First Orde red Date DISCHARGE PATIENT 2 07/01/2025 documented in this encounter Additional Health Concerns Infection Onset Date Last Indicated Resolved Time Respiratory Rule-Out 06/20/2025 06/21/2025 025 5:50 AM EDT COVID-19 Rule-Out 06/20/2025 06/21/2025 06/21/2025 5:50 AM EDT documented as of this encounter Care Teams Director Learning And Development Relationship Specialty Start Date End Date Alethea Marsh NP [address] [place] [address] PCP - General Internal Medicine 05/26/25 documented as of this encounter
--- NOTE | ~2025-07-04 | FL_ITS ---
EXAMINATION: XR BARIUM SWALLOW CLINICAL INFORMATION: Dysphagia. COMPARISON: None available. TECHNIQUE: Modified barium swallow was performed under lateral fluoroscopy with patient in semirecumbent position . Various consistencies of barium was administered by speech therapist. FINDINGS: On oral administration of thin, barium, barium coated applesauce and solid cracker coated with barium there is normal propagation bolus from the oral cavity through the pharynx into esophagus. No laryngeal penetration or aspiration seen. There is minimal retention in the valleculae and piriform sinuses which clears with subsequent dry swallowing. There is normal oral mastication of solid food and propagation of bolus through the pharynx. FLUOROSCOPY TIME: 2 minutes and 29 seconds DOSE AREA PRODUCT: 1898 uGy-m2 (microgray-meter squared) FL/FL Modified Barium Swallow IMPRESSION: Unremarkable modified barium swallow. Compare with speech therapy report. Electronically signed by: Johnny Li MD 07/04/2025 04:37 PM EDT
--- OUTSIDE RECORDS SUMMARY | 2025-07-04 15:20 | XMS_ITS | Encounter Summary ---
Author Organization [facility] Address [address] [place] [address] Encounters * CPT with Medical [facility] at [facility] on 2025-06-20 Member's sister Mandie, called into the CRU reporting member is c/o chest pain, dizziness and sob. B/P 116/60, Spo2 90% on 5L/min o2. Mandie states member was recently discharged from the hospital for PNE. Member has been stable, until today. Member began to c/o of chest pain. Member is non-verbal d/t tracheostomy status. Member has a hx of severe mental illness, MDD, Anxiety, R/A, Myasthenia Gravis, hypertension, tachycardia. Mandie does not want to go to ED. [facility] needs to go to ED, d/t repeated ED visits. Mandie states does not appear to be in any acute distress. { reasonForRequest : chest pain , breathing problems , dizziness , patientR eports : , denies :[], chiefComplaints : Chest Pain, Dizziness, Breathing Problems , pmh : Hypertension, COPD/Asthma , allergies& quot;: Morphine , otherAllergies :null, painAssessment : ,& quot;visitOutcome : , additionalComments : HPI reviewed. } Dispatched to the above address for a 30 y/f with a cc of sob/chest pain. Proper ppe was worn throughout the call. Upon arrival: Pt family member (FM) gave a verbal report about the pt. 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 [facility] FM stated that today around 3pm pt started to have sob/dizziness/chest pain (family member noted that pt has a significant hx of anxiety, and often gets SOB/chest pain). FM stated that pt SPO2 is normally around 90%, but today she had to call the nurse and request to increase LPM from 3-5 due to spo2 decreasing to 88% and HR above 120 BPM. Pt still complains of chest pain/sob after lpm was increased and wants to go to the ER ([facility]). Pt was non verbal, but keptdisagreeing with the FM about that these complaint are normal and that she does not need to go to the ER. Pt appeared agitated when family kept stating that she only has pain to the shoulders and notthe chest. To this pt would point to the sternum, while nodding in disagreement with her FM. FM again stated that pt has a lot of anxiety issues and usually pt calms down after taking her anxiety medication, FM noted that pt has been under a lot of stress ever since she moved to a different House. AOx4 - Airway: Patent - Breathing: equal chest rise and fall - LS: clear in apices and left base, diminished to the right base (hx of collapsed right lung x2), FM stated that pt right lung is still collapsed (unknown reason, due to poor translation) - Skin: pink, warm, dry - Pupils: PERRL - Lower extremity: No edema noted. Head to toe body assessment: (-) DCAPBTLS. Pt denied to headache/abd pain/nausea/vomiting/blood in urine/difficulty urinating/constipation/diarrhea. ABD: soft non tender. HEENT. skin in tact with no deformity, discoloration, or inflammation. Pupils were equal and reactive to light bilaterally. Eyes tracking normally to six cardinal points of gaze. Patient denied changes to vision or hearing and denied double vision. ECG: sinus tachycardia, non diagnostic for STEMI [facility]: Spoke with the pt/pt family and gave pt education about how pt needs to be at the ER due to new onset of decreased SPO2 on newly increased O2. Pt family was not happy with this decision, but gave the pt the choice of deciding (to which pt agreed with the [facility] and wanted to go to [facility] ER). 911 dialed and ambulance transferred pt to local ER. [facility] clear. All times approximate. IV_(FLUIDS_AND/OR_MEDICATION), ORAL_MEDICATION, EKG, POC_BLOODWORK, POC_FLU_STREP, COVID_TEST, ORTHOSTATIC_VITAL_SIGNS, PO_MEDICATION Written by Medical [facility] on 2025-06-20
--- OUTSIDE RECORDS SUMMARY | 2025-07-04 15:20 | XMS_ITS | Encounter Summary ---
Author Organization [facility] Address [address] [place] [address] Encounters * CPT with Shay Walden at [facility] on 2025-05-06 Member's designated contact called CRU, stating member is complaining of not feeling well. 120/76, 100 94%, Member states she is having sticking pain in my chest . Caregiver reports memberpain comes and goes. She reports member is [...] BIGG, MDD, tracheostomy, HX cardiac arrest. This junior underwriter advised caller, a request will be sent to [email or web address]. If member's sx's worsen or change, call 911. Caller verbalized comprehension and agreed with this plan. { reasonForRequest : chest pain , patientReports : , d enies :[], chiefComplaints : Chest Pain , pmh : Hypertension, COPD/Asthma , allergies : Morphine , otherAllergies :null,&quot ;painAssessment : , visitOutcome : , additionalComments": HPI reviewed } Sent to a call for a pt [...] drop below 88% or pulse go above 160or below 60, there is nothing to worry about. Family states they don't want pt to be transported toED, they just want pt checked out. Family states pt has anxiety, but it's difficult to know if theyshould be concerned about the chest pain. Allergies verified: Morphine; Family states pt has been suctioned normally with no changes in sputum. Pt complains of intermittent left side chest pain and epigastric pain starting at approx 1:15pm. Pt/family denies cooley, dizziness, sob, n/v/d, fever, or loc.BP:119/76, P:109, RR:18, SpO2:94% RA, T:98.0; Head: unremarkable; Lung sounds: clear bilaterally; Chest: no tenderness; Abdomen: soft, diffuse tenderness, no distention (family unsure if tenderness is normal), feeding tube site appears normal, no blood/pus noted; Back: unremarkable; Upper extremities: bilateral tenderness; Lower extremities: unremarkable; Skin: pink, warm, dry; 12 lead ECG: sinustachycardia; [facility] consulted and further questions asked. Family states no change in urine output, appearance, or smell; BM, or changes at feeding tube site. Family states in the past when pt has pain like today site of feeding tube has been affected. Family advised to monitor pt and follow up with [facility] if anything changes. Red flags discussed. Pt/family has no further questions. ORAL_MEDICATION, EKG, POC_FLU_STREP, COVID_TEST Written by Shay Walden on 2025-05-06
--- OUTSIDE RECORDS SUMMARY | 2025-07-04 15:20 | XMS_ITS | Clinical Summary ---
Author Organization [facility] Address [address] [place] [address] Care Team Providers Care Mixer Runner Name Role Phone Alethea Marsh Primary Care Provider [phone] Allergies Active Allergy Reactions Criticality Noted Date [...] the affected area as needed for itching. [place] balm topical ointment PRN 3 times a [...] methotrexate, sulfasalazine -labs in a month at [facility] -hep B non-immune, hep C neg, [...] Screening Completed 07/30/2023 Procedures * Due to [place] law, this organization might not be sharing negative HIV tests. Procedure Name Priority Date/Time Associated Diagnosis Comments HEPATITIS C ANTIBODY W/REFLEX TO HCV RNA, QUANTITATIVE PCR Routine 07/30/2023 5:42 PM EDT Long-term use of high-risk medication from Last 3 Months or Most Recently Relevant to Health Maintenance Results * Due to [place] law, this organization might not be sharing negative HIV tests. * Hepatitis C Antibody w/Reflex to HCV RNA, Quantitative PCR (07/30/2023 5:42 PM EDT) Hepatitis C Antibody NON-REACT HUANG NON-REACT HUANG 07/31/2023 7:35 AM EDT [facility] Comment: HCV antibody was non-reactive. There is no laboratory evidence of HCV infection. In most cases, no further action is required. However, if recent HCV exposure is suspected, a test for HCV RNA (test code 13838) is suggested. For additional information please refer to http://education.exozet/faq/BJY79s3 (This link is being provided for informational/ educational purposes only.) Blood Structure of peripheral vein / Unknown Venipuncture / Unknown 07/30/2023 5:42 PM EDT 07/30/2023 5:58 PM EDT Narrative [facility] - 07/31/2023 7:35 AM EDT [facility] Received Date: us Ted Hudson MD LAB BLOOD ORDERABLES Final Result [facility] [address], [place] [address], [place] [phone] [facility] [address], [place] [address], [place] [phone] from Last 3 Months or Most Recently Relevant to Health Maintenance Insurance [facility] [employer] Advance Directives Documents on File Type Date Recorded Patient Byproducts Operator Expl anation Health Care Proxy 12/04/2023 10:46 AM - Care Teams Mixer Runner Relationship Specialty Start Date End Date Alethea Marsh [address] [place] [address] PCP - General 06/30/24
--- OUTSIDE RECORDS SUMMARY | 2025-07-04 15:20 | XMS_ITS | Clinical Summary ---
Author Organization [facility] Address [address] [place] [address] Phone Care Team Providers Care Geospatial Technologist Name Role Phone Alethea Marsh NP Primary Care Provider [phone] Allergies Active Allergy Reactions Criticality Noted Date [...] skin 1 (one) time each day. Active ipratropium-al buteroL (DUONEB) 0.5-2.5 mg/3 mL nebulizer solution Take 3 mL by nebulization every 6 (six) hours. Active metoprolol succinate (TOPROL-XL) 25 mg 24 hr tablet Take 0.5 tablets (12.5 mg total) by mouth every 8 (eight) hours. Do not crush or chew. Active traZODone (DESYREL) 50 mg tablet Take 1 tablet (50 mg total) by mouth at bedtime. Active folic acid (FOLVITE) 1 mg tablet Take 1 tablet (1 mg total) by mouth 1 (one) time each day. Active guaiFENesin (ROBITUSSIN) 100 mg/5 mL liquid Take 30 mL (600 mg total) by mouth 3 (three) times a day if needed for cough. Active pyRIDostigmine (MESTINON) 60 mg tablet Take [...] hours if needed for moderate pain. Active traMADoL 25 mg tabletIndicati ons:pain Take 50 mg by mouth every 4 [...] Amount: 1 mg 6 tablet 5 Active ammonium lactate (LAC-HYDRIN) 12 % lotion Apply topically 1 (one) time each day. 400 g 5 026 Active midodrine (PROAMATINE) 10 mg tablet Take 1 tablet (10 mg total) by mouth every 8 (eight) hours. 90 tablet 5 025 Active calcium carbonate-ben min D 500 mg-5 mcg (200 unit) per tablet Take 2 tablets by mouth 2 (two) times a day. 120 each 5 026 Active ferrous sulfate 300 mg (60 mg elemental iron)/5 mL liquid Take 5 mL (300 mg total) by mouth 2 (two) times a day. 300 mL 11 5 Active magnesium oxide (MAG-OX) 400 mg (241.3 elemental magnesium) tablet Take 1.5 tablets (600 mg total) by mouth 3 (three) times a day. 90 tablet 2 5 Active metoprolol tartrate (LOPRESSOR) 25 mg tablet Take 0.5 tablets (12.5 mg total) by mouth every 8 (eight) hours. 45 each 5 026 Active busPIRone (BUSPAR) 10 mg tablet Take 1 tablet (10 mg total) by mouth 3 (three) times a day. 90 each 5 026 Active ferrous sulfate 300 mg (60 mg elemental iron)/5 mL liquid Take 5 mL (300 mg total) by mouth 2 (two) times a day. 025 Discontin ued(Stop Taking at Discharge ) calcium carbonate-ben min D 500 mg-5 mcg (200 unit) per tablet Take 1 tablet by mouth 1 (one) time each day. 025 Discontin ued(Stop Taking at Discharge ) busPIRone (BUSPAR) 5 mg tablet Take 1 tablet (5 mg total) by mouth 3 (three) times a day. 025 Discontin ued(Stop Taking at Discharge ) chlorhexidine (PERIDEX) 0.12 % solution Use 15 mL in the mouth or throat 2 (two) times a day. 025 Discontin ued(Stop Taking at Discharge ) magnesium oxide (MAG-OX) 400 mg magnesium tablet Take 2 tablets (800 mg total) by mouth 3 (three) times a day. 025 Discontin ued(Stop Taking at Discharge ) guaiFENesin (ROBITUSSIN) 100 mg/5 mL liquid 10 mL (200 mg total) by j-tube route every 6 (six) hours for 10 days. 120 mL 5 025 Discontin ued(Stop Taking at Discharge ) Active Problems Problem Noted Date Diagnosed Date Chronic hypoxic respiratory failure ([facility] V24, [facility]) 10/13/2024 Chronic respiratory failure requiring use of nocturnal mechanical ventilation through tracheostomy ([facility], [facility] V[facility]) 10/13/2024 Myasthenia gravis ([facility], [facility] V[facility]) 04/2024 Overview (09/15/2024): See hospital discharge summary scanned to chart 02/16/24 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 December through February 2024. Treated with IVIG x5 days (last dose 01/02/24). Adrenal insufficiency ([facility]) 09/15/2024 Overview (09/15/2024): Diagnosed during Dec-February hospitalization at [facility] based on low Cortisol (12/25/23). Iron deficiency anemia 09/15/2024 Functional incontinence 09/15/[address] ([facility], [facility] V28) 09/15/2024 Respiratory disorder with ve ntilator dependence ([facility], [facility] V28) 09/15/2024 Immunocompromised state ([facility] V24) 09/15/2024 On mechanically assisted agusto tilation ([facility] V24, [facility] V28) 09/15/2024 Neuromyopathy syndrome ([facility] V[facility], [facility] V28 ) 09/15/2024 Quadriplegia and quadriparesis ([facility] V[facility], [facility] V28) 09/15/2024 Chronic tachycardia 09/15/2024 Hypercapnic respiratory failure ([facility] V[facility], [facility] V28) 09/10/2024 Jejunostomy tube in situ ([facility] V[facility], [facility] V 28) 04/02/2024 TOM positive 07/30/2023 Rheumatoid arthritis involvi ng multiple sites with positive rheumatoid factor ([facility], [facility] V28) 07/29/2023 Resolved Problems Problem Noted Date Diagnosed Date Resolved Date Anxiety 06/21/2025 06/30/2025 Acute on chronic respiratory failure ([facility], [facility] V28) 06/20/2025 06/30/2025 Respiratory distress 05/27/2025 025 Hypoxia 10/13/2024 07/01/2025 Failure to thrive in adult 09/15/2024 0 07/01/2025 Disorder of muscle 09/15/2024 Overview (09/15/2024): See [...] has been referred to neuromuscular clinic in [place], [place]. Weakness 09/15/2024 07/01/2025 Atelectasis of both lungs 09/15/2024 Encounters Date Type Department Care Team Description 06/20/2025 7:07 PM EDT - 07/01/2025 6:30 PM EDT Hospital Encounter [facility] ICU [address] [place] [address] Ronnie Sierra MD Hung, MD Selene Robles Laurie, MD Bonacum, MD Alana Barrow Richard, DO Acute respiratory failure with hypoxia ([facility] V24, [facility] V28) (Primary Dx); Hypoxia; Pneumonia due to infectious organism, unspecified laterality, unspecified part of lung; Chronic hypoxic respiratory failure ([facility] V24, [facility] V28); Anxiety; Chronic respiratory failure requiring use of nocturnal mechanical ventilation through tracheostomy ([facility] V24, [facility] V28); Quadriplegia and quadriparesis ([facility] V24, [facility] V28); On mechanically assisted ventilation ([facility] V24, [facility] V28); Immunocompromised state ([facility] V24); Weakness; Respiratory disorder with ventilator dependence ([facility] V24, [facility] V28); Tracheostomy in place ([facility] V24, [facility] V28); Functional incontinence; Adrenal insufficiency ([facility] V24); Jejunostomy tube in situ ([facility] V24, [facility] V28); Myasthenia gravis ([facility] V24, [facility] V28); Rheumatoid arthritis involving multiple sites with positive rheumatoid factor ([facility] V24, [facility] V28); Failure to thrive in adult; Neuromyopathy syndrome ([facility] V24, [facility] V28) Discharge Disposition: Home or Self Care 06/20/[address] [facility] Hematology Oncology [address] [place] [id number] Aaron Serrato MD 05/26/2025 8:27 PM EDT - 06/16/2025 11:45 AM EDT Hospital Encounter [facility] ICU [address] [place] [id number] Cm Narvaez MD Loiacono, Laurie, MD Bonacum, Julia T, MD Levrault, Richard, DO Quadriplegia and quadriparesis ([facility], [facility] V28) (Primary Dx); Respiratory distress; Acute pneumonia; Sepsis with acute hypoxic respiratory failure without septic shock, due to unspecified organism ([facility] V24, [facility] V28); Acute on chronic respiratory failure with hypoxia ([facility], [facility] V[facility]); Localized edema; Chronic respiratory failure requiring use of nocturnal mechanical ventilation through tracheostomy ([facility] V24, [facility] V28); Chronic hypoxic respiratory failure ([facility] V24, [facility] V28); Hypoxia; Chronic tachycardia; Neuromyopathy syndrome ([facility] V24, [facility] V28); On mechanically assisted ventilation ([facility] V24, [facility] V28); Atelectasis of both lungs; Immunocompromised state ([facility] V24); TOM positive; Respiratory disorder with ventilator dependence ([facility] V24, [facility] V28); Weakness; Tracheostomy in place ([facility], [facility] V28); Failure to thrive in adult; Functional incontinence; Myasthenia gravis ([facility], [facility] V28) Discharge Disposition: Home-Health Care c 05/19/2025 7:17 AM EDT - 05/19/2025 11:59 PM EDT Hospital Encounter [facility] Interventional Radiology [address] [place] [address] Quadriplegia and quadriparesis ([facility] V24, [facility] V28); Myasthenia gravis ([facility] V24, [facility] V28) Discharge Disposition: Home or Self Care 05/03/2025 Telephone General Surgery - [place] [address] [place] [address] Tj Nino, DO from Last 3 Months Surgical History Surgery Date Site/Laterality Comments TRACHEOSTOMY TUBE PLACEMENT IR PERCUTANEOUS JEJUNOSTOMY TUBE PLACEMENT Left Medical History Medical History Date Comments Myasthenia gravis ([facility] V24, [facility] V28) Gastrointestinal tube present ([facility], [facility] V28) Tracheostomy dependent ([facility], [facility] V28 ) Social History Tobacco Use Types [...] care for your loved ones. For example, maternal child nurse or elderly care for an older adult? [...] Mass Index 28.4 06/21/2025 7:28 AM EDT Plan of Treatment Health Maintenance Due Date Last Done Comments Cervical Cancer Screening: Pap Smear 2014 Cholesterol Screening (Lipid Panel) 12/09/2023 HIV Screening 12/09/2023 Medicare Annual Wellness Visit 12/09/2023 COVID-19 Vaccine ( season) 2024 09/15/2021, 03/10/2021, 02/10/2021 Depression Screening 11/10/2024 Influenza Vaccine (#1) 2025 09/24/2011, 2009 Social Influencers of Health Screening 06/21/2026 06/21/2025 Hypertension/CHF/CAD Annual BMP Blood Test 06/30/2026 06/30/2025, 06/29/2025, 06/28/2025, Additional history exists DTaP,Tdap,and Td Vaccines (7 [...] Procedure Name Priority Date/Time Associated Diagnosis Comments CBC WITH AUTO DIFFERENTIAL Routine 07/01/2025 3:44 AM EDT CBC AND DIFFERENTIAL Routine 07/01/2025 3:44 AM EDT PROCALCITONIN Routine 07/01/2025 3:44 AM EDT PHOSPHORUS Routine 07/01/2025 3:44 AM EDT MAGNESIUM Routine 07/01/2025 3:44 AM EDT CALCIUM, IONIZED Routine 07/01/2025 3:44 AM EDT BASIC METABOLIC PANEL Routine 07/01/2025 3:44 AM EDT VENTILATOR, ADULT Routine 06/30/2025 8:0 1 AM EDT OXYGEN THERAPY, ADULT Routine 06/30/2025 8:01 AM EDT MANUAL DIFFERENTIAL - SYSMEX WAM Routine 06/30/2025 4:17 AM EDT CBC WITH AUTO DIFFERENTIAL Routine 06/30/2025 4:17 AM EDT CBC AND DIFFERENTIAL Routine 06/30/2025 4:17 AM EDT PROCALCITONIN Routine 06/30/2025 4:17 AM EDT PHOSPHORUS Routine 06/30/2025 4:17 AM EDT MAGNESIUM Routine 06/30/2025 4:17 AM EDT CALCIUM, IONIZED Routine 06/30/2025 4:17 AM EDT BASIC METABOLIC PANEL Routine 06/30/2025 4:17 AM EDT VENTILATOR, ADULT Routine 06/29/2025 8:0 0 PM EDT OXYGEN THERAPY, ADULT Routine 06/29/2025 8:00 PM EDT VENTILATOR, ADULT Routine 06/29/2025 8:0 2 AM EDT OXYGEN THERAPY, ADULT Routine 06/29/2025 8:02 AM EDT XR CHEST 1 VIEW Routine 06/29/2025 6:04 AM EDT MANUAL DIFFERENTIAL - SYSM[facility] WAM Routine 06/29/2025 3:29 AM EDT VENOUS BLOOD GAS Routine 06/29/2025 3:29 AM EDT CBC WITH AUTO DIFFERENTIAL Routine 06/29/2025 3:29 AM EDT COMPREHENSIVE METABOLIC PANEL Routine 06/29/2025 3:29 AM EDT PHOSPHORUS Routine 06/29/2025 3:29 AM EDT MAGNESIUM Routine 06/29/2025 3:29 AM EDT CALCIUM, IONIZED Routine 06/29/2025 3:29 AM EDT CBC AND DIFFERENTIAL Routine 06/29/2025 3:29 AM EDT LACTATE Routine 06/29/2025 3:29 AM EDT VENTILATOR, ADULT Routine 06/28/2025 8:0 0 PM EDT OXYGEN THERAPY, ADULT Routine 06/28/2025 8:00 PM EDT VENTILATOR, ADULT Routine 06/28/2025 8:0 2 AM EDT OXYGEN THERAPY, ADULT Routine 06/28/2025 8:02 AM EDT XR CHEST 1 VIEW Routine 06/28/2025 5:29 AM EDT CBC WITH AUTO DIFFERENTIAL Routine 06/28/2025 4:22 AM EDT LACTATE Routine 06/28/2025 4:22 AM EDT CBC AND DIFFERENTIAL Routine 06/28/2025 4:22 AM EDT CALCIUM, IONIZED Routine 06/28/2025 4:22 AM EDT BASIC METABOLIC PANEL Routine 06/28/2025 4:22 AM EDT PHOSPHORUS Routine 06/28/2025 4:22 AM EDT MAGNESIUM Routine 06/28/2025 4:22 AM EDT CENTRAL LINE BLOOD GAS Routine 06/28/2025 4:22 AM EDT VENTILATOR, ADULT Routine 06/27/2025 8:0 0 PM EDT OXYGEN THERAPY, ADULT Routine 06/27/2025 8:00 PM EDT VENTILATOR, ADULT Routine 06/27/2025 8:0 2 AM EDT OXYGEN THERAPY, ADULT Routine 06/27/2025 8:02 AM EDT XR CHEST 1 VIEW Routine 06/27/2025 5:46 AM EDT CBC WITH AUTO DIFFERENTIAL Routine 06/27/2025 4:30 AM EDT CBC AND DIFFERENTIAL Routine 06/27/2025 4:30 AM EDT CALCIUM, IONIZED Routine 06/27/2025 4:30 AM EDT BASIC METABOLIC PANEL Routine 06/27/2025 4:30 AM EDT MAGNESIUM Routine 06/27/2025 4:30 AM EDT CENTRAL LINE BLOOD GAS Routine 06/27/2025 4:30 AM EDT VENTILATOR, ADULT Routine 06/26/2025 8:0 0 PM EDT OXYGEN THERAPY, ADULT Routine 06/26/2025 8:00 PM EDT ECG 12-LEAD Routine 06/26/2025 2:26 PM EDT VAS US DUPLEX LOWER EXT VENOUS LEFT Routine 06/26/2025 2:18 PM EDT Chronic hypoxic respiratory failure ([facility] V24, [facility] V28) VENTILATOR, ADULT Routine 06/26/2025 8:0 0 AM EDT OXYGEN THERAPY, ADULT Routine 06/26/2025 8:00 AM EDT MANUAL DIFFERENTIAL - SYS[facility] WAM Routine 06/26/2025 4:30 AM EDT CENTRAL LINE BLOOD GAS Routine 06/26/2025 4:30 AM EDT CBC WITH AUTO DIFFERENTIAL Routine 06/26/2025 4:30 AM EDT CALCIUM, IONIZED Routine 06/26/2025 4:30 AM EDT PHOSPHORUS Routine 06/26/2025 4:30 AM EDT MAGNESIUM Routine 06/26/2025 4:30 AM EDT CBC AND DIFFERENTIAL Routine 06/26/2025 4:30 AM EDT BASIC METABOLIC PANEL Routine 06/26/2025 4:30 AM EDT OXYGEN THERAPY, ADULT Routine 06/25/2025 8:00 PM EDT OXYGEN THERAPY, ADULT Routine 06/25/2025 8:01 AM EDT CBC WITH AUTO DIFFERENTIAL Routine 06/25/2025 4:32 AM EDT CENTRAL LINE BLOOD GAS Routine 06/25/2025 4:32 AM EDT PROCALCITONIN Routine 06/25/2025 4:32 AM EDT PHOSPHORUS Routine 06/25/2025 4:32 AM EDT MAGNESIUM Routine 06/25/2025 4:32 AM EDT CALCIUM, IONIZED Routine 06/25/2025 4:32 AM EDT BASIC METABOLIC PANEL Routine 06/25/2025 4:32 AM EDT CBC AND DIFFERENTIAL Routine 06/25/2025 4:32 AM EDT OXYGEN THERAPY, ADULT Routine 06/24/2025 8:00 PM EDT VENTILATOR, ADULT Routine 06/24/2025 12: 22 PM EDT VENTILATOR, ADULT Routine 06/24/2025 12: 22 PM EDT OXYGEN THERAPY, ADULT Routine 06/24/2025 8:19 AM EDT OXYGEN THERAPY, ADULT Routine 06/24/2025 8:19 AM EDT XR CHEST 1 VIEW Routine 06/24/2025 5:49 AM EDT MANUAL DIFFERENTIAL - [facility] WAM Routine 06/24/2025 3:52 AM EDT CALCIUM, IONIZED Routine 06/24/2025 3:52 AM EDT BASIC METABOLIC PANEL Routine 06/24/2025 3:52 AM EDT MAGNESIUM Routine 06/24/2025 3:52 AM EDT PHOSPHORUS Routine 06/24/2025 3:52 AM EDT HEPATIC FUNCTION PANEL Routine 06/24/2025 3:52 AM EDT CBC WITH AUTO DIFFERENTIAL Routine 06/24/2025 3:52 AM EDT CBC AND DIFFERENTIAL Routine 06/24/2025 3:52 AM EDT CENTRAL LINE BLOOD GAS Routine 06/24/2025 3:52 AM EDT VENTILATOR, ADULT Routine 06/23/2025 7:3 2 PM EDT VENTILATOR, ADULT Routine 06/23/2025 7:3 2 PM EDT XR CHEST 1 VIEW Routine 06/23/2025 5:23 AM EDT CBC WITH AUTO DIFFERENTIAL Routine 06/23/2025 4:26 AM EDT CENTRAL LINE BLOOD GAS Routine 06/23/2025 4:26 AM EDT PROCALCITONIN Routine 06/23/2025 4:26 AM EDT COMPREHENSIVE METABOLIC PANEL Routine 06/23/2025 4:26 AM EDT PHOSPHORUS Routine 06/23/2025 4:26 AM EDT MAGNESIUM Routine 06/23/2025 4:26 AM EDT CALCIUM, IONIZED Routine 06/23/2025 4:26 AM EDT CBC AND DIFFERENTIAL Routine 06/23/2025 4:26 AM EDT LACTATE Routine 06/23/2025 4:26 AM EDT COMPLETE BLOOD COUNT Routine 06/22/2025 12:04 PM EDT TRANSFUSE RED BLOOD CELLS STAT 06/22/2025 9:12 AM EDT VENTILATOR, ADULT Routine 06/22/2025 8:0 2 AM EDT ANTIBODY IDENTIFICATION Routine 06/22/2025 6:22 AM EDT TYPE AND SCREEN Routine 06/22/2025 6:22 AM EDT PREPARE RBC STAT 06/22/2025 5:52 AM EDT CBC WITH AUTO DIFFERENTIAL Routine 06/22/2025 5:06 AM EDT CENTRAL LINE BLOOD GAS Routine 06/22/2025 5:06 AM EDT PROCALCITONIN Routine 06/22/2025 5:06 AM EDT PHOSPHORUS Routine 06/22/2025 5:06 AM EDT MAGNESIUM Routine 06/22/2025 5:06 AM EDT CALCIUM, IONIZED Routine 06/22/2025 5:06 AM EDT BASIC METABOLIC PANEL Routine 06/22/2025 5:06 AM EDT CBC AND DIFFERENTIAL Routine 06/22/2025 5:06 AM EDT VENTILATOR, ADULT Routine 06/21/2025 8:0 1 PM EDT CULTURE SPUTUM STAT 06/21/2025 3:59 PM EDT POCT GLUCOSE BLOOD Routine 06/21/2025 11 :17 AM EDT VENTILATOR, ADULT Routine 06/21/2025 8:0 3 AM EDT POCT GLUCOSE BLOOD Routine 06/21/2025 6: 31 AM EDT RESPIRATORY VIRUS PANEL MOLECULAR STUDY STAT 06/21/2025 4:32 AM EDT VENOUS BLOOD GAS STAT 06/21/2025 4:13 AM EDT CBC WITH AUTO DIFFERENTIAL Routine 06/21/2025 4:13 AM EDT PROCALCITONIN Routine 06/21/2025 4:13 AM EDT PHOSPHORUS Routine 06/21/2025 4:13 AM EDT MAGNESIUM Routine 06/21/2025 4:13 AM EDT CALCIUM, IONIZED Routine 06/21/2025 4:13 AM EDT COMPREHENSIVE METABOLIC PANEL Routine 06/21/2025 4:13 AM EDT CBC AND DIFFERENTIAL Routine 06/21/2025 4:13 AM EDT MRSA PCR STAT 06/21/2025 4:13 AM EDT POCT GLUCOSE BLOOD [...] BLOOD Routine 06/20/2025 10 :50 PM EDT HCG, SERUM, QUALITATIVE STAT Add-on 06/20/2025 10:12 PM EDT SST - GOLD Routine 06/20/2025 10:12 PM EDT EXTRA TUBES Routine 06/20/2025 10:12 PM EDT B-TYPE NATRIURETIC PEPTIDE STAT 06/20/2025 10:12 PM EDT ACTIVATED PARTIAL THROMBOPLASTIN TIME STAT 06/20/2025 10:12 PM EDT PROTHROMBIN TIME WITH INR STAT 06/20/2025 10:12 PM EDT TROPONIN I HIGH SENSITIVITY Timed 06/20/2025 10:12 PM EDT VENTILATOR, ADULT Routine 06/20/2025 9:3 2 PM EDT VENTILATOR, ADULT Routine 06/20/2025 9:3 2 PM EDT VENTILATOR, ADULT Routine 06/20/2025 9:3 2 PM EDT PROTHROMBIN TIME WITH INR STAT 06/20/2025 8:39 PM EDT MAGNESIUM Add-On 06/20/2025 8:39 PM EDT COMPREHENSIVE METABOLIC PANEL STAT 06/20/2025 8:39 PM EDT XR CHEST 1 VIEW STAT 06/20/2025 8:27 PM EDT NARANJO URINE CULTURE TUBE STAT 06/20/2025 8:18 PM EDT URINALYSIS WITH REFLEX MICROSCOPIC AND CULTURE STAT 06/20/2025 8:18 PM EDT URINALYSIS WITH REFLEX MICROSCOPIC AND CULTURE STAT 06/20/2025 8:18 PM EDT LEGIONELLA ANTIGEN URINE, EIA STAT Add-on 06/20/2025 8:18 PM EDT CULTURE URINE STAT 06/20/2025 8:18 PM EDT VENOUS BLOOD GAS STAT 06/20/2025 7:50 PM EDT CULTURE BLOOD STAT 06/20/2025 7:50 PM EDT CBC WITH AUTO DIFFERENTIAL STAT 06/20/2025 7:41 PM EDT CBC AND DIFFERENTIAL STAT 06/20/2025 7:41 PM EDT LACTATE, WITH REFLEX STAT 06/20/2025 7:39 PM EDT TROPONIN I HIGH SENSITIVITY Timed 06/20/2025 7:39 PM EDT CULTURE BLOOD STAT 06/20/2025 7:39 PM EDT ECG 12-LEAD STAT 06/20/2025 7:16 PM EDT MO CRITICAL CARE 30-74 MINUTES Routine 06/20/2025 6:57 PM EDT BASIC METABOLIC PANEL Routine 06/16/2025 6:04 AM EDT LT GREEN - LI HEPARIN Routine 06/16/2025 4:00 AM EDT EXTRA TUBES Routine 06/16/2025 4:00 AM EDT CBC WITH AUTO DIFFERENTIAL Routine 06/16/2025 4:00 AM EDT CBC AND DIFFERENTIAL Routine 06/16/2025 4:00 AM EDT VENTILATOR, ADULT Routine 06/15/2025 8:0 2 AM EDT OXYGEN THERAPY, ADULT Routine 06/15/2025 8:02 AM EDT PASSY JOSE MANUEL SPEAKING VALVE Routine 06/15/2025 6:01 AM EDT VENOUS BLOOD GAS Routine 06/15/2025 4:22 AM EDT CBC WITH AUTO DIFFERENTIAL Routine 06/15/2025 4:22 AM EDT CBC AND DIFFERENTIAL Routine 06/15/2025 4:22 AM EDT CALCIUM, IONIZED Routine 06/15/2025 4:22 AM EDT BASIC METABOLIC PANEL Routine 06/15/2025 4:22 AM EDT PHOSPHORUS Routine 06/15/2025 4:22 AM EDT MAGNESIUM Routine 06/15/2025 4:22 AM EDT HEPATIC FUNCTION PANEL Routine 06/15/2025 4:22 AM EDT VENTILATOR, ADULT Routine 06/14/2025 8:0 0 PM EDT OXYGEN THERAPY, ADULT Routine 06/14/2025 8:00 PM EDT VENTILATOR, ADULT Routine 06/14/2025 10: 20 AM EDT OXYGEN THERAPY, ADULT Routine 06/14/2025 8:02 AM EDT CBC WITH AUTO DIFFERENTIAL Routine 06/14/2025 4:23 AM EDT CBC AND DIFFERENTIAL Routine 06/14/2025 4:23 AM EDT CALCIUM, IONIZED Routine 06/14/2025 4:23 AM EDT BASIC METABOLIC PANEL Routine 06/14/2025 4:23 AM EDT PHOSPHORUS Routine 06/14/2025 4:23 AM EDT MAGNESIUM Routine 06/14/2025 4:23 AM EDT CENTRAL LINE BLOOD GAS Routine 06/14/2025 4:23 AM EDT OXYGEN THERAPY, ADULT Routine 06/13/2025 8:00 PM EDT VENTILATOR, ADULT Routine 06/13/2025 8:4 7 AM EDT OXYGEN THERAPY, ADULT Routine 06/13/2025 8:02 AM EDT XR CHEST 1 VIEW Routine 06/13/2025 5:37 AM EDT CBC WITH AUTO DIFFERENTIAL Routine 06/13/2025 4:08 AM EDT CBC AND DIFFERENTIAL Routine 06/13/2025 4:08 AM EDT CALCIUM, IONIZED Routine 06/13/2025 4:08 AM EDT BASIC METABOLIC PANEL Routine 06/13/2025 4:08 AM EDT MAGNESIUM Routine 06/13/2025 4:08 AM EDT PHOSPHORUS Routine 06/13/2025 4:08 AM EDT CENTRAL LINE BLOOD GAS Routine 06/13/2025 4:08 AM EDT OXYGEN THERAPY, ADULT Routine 06/12/2025 8:[address] CHEST WO CONTRAST STAT 06/12/2025 5:34 PM EDT OXYGEN THERAPY, ADULT Routine 06/12/2025 8:00 AM EDT XR CHEST 1 VIEW Routine 06/12/2025 5:45 AM EDT CBC WITH AUTO DIFFERENTIAL Routine 06/12/2025 4:39 AM EDT CBC AND DIFFERENTIAL Routine 06/12/2025 4:39 AM EDT CALCIUM, IONIZED Routine 06/12/2025 4:39 AM EDT BASIC METABOLIC PANEL Routine 06/12/2025 4:39 AM EDT PHOSPHORUS Routine 06/12/2025 4:39 AM EDT MAGNESIUM Routine 06/12/2025 4:39 AM EDT CENTRAL LINE BLOOD GAS Routine 06/12/2025 4:39 AM EDT VENTILATOR, ADULT Routine 06/11/2025 8:0 0 PM EDT OXYGEN THERAPY, ADULT Routine 06/11/2025 8:00 PM EDT VENTILATOR, ADULT Routine 06/11/2025 8:0 1 AM EDT OXYGEN THERAPY, ADULT Routine 06/11/2025 8:01 AM EDT PASSY JOSE MANUEL SPEAKING VALVE Routine 06/11/2025 6:00 AM EDT XR CHEST 1 VIEW Routine 06/11/2025 5:45 AM EDT VENOUS BLOOD GAS Routine 06/11/2025 4:36 AM EDT CALCIUM, IONIZED Routine 06/11/2025 4:36 AM EDT BASIC METABOLIC PANEL Routine 06/11/2025 4:36 AM EDT PHOSPHORUS Routine 06/11/2025 4:36 AM EDT MAGNESIUM Routine 06/11/2025 4:36 AM EDT CBC WITH AUTO DIFFERENTIAL Routine 06/11/2025 4:36 AM EDT CBC AND DIFFERENTIAL Routine 06/11/2025 4:36 AM EDT OXYGEN THERAPY, ADULT Routine 06/10/2025 8:00 PM EDT VENTILATOR, ADULT Routine 06/10/2025 8: 02 AM EDT OXYGEN THERAPY, ADULT Routine 06/10/2025 8:02 AM EDT PASSY JOSE MANUEL SPEAKING VALVE Routine 06/10/2025 6:01 AM EDT CBC WITH AUTO DIFFERENTIAL Routine 06/10/2025 4:18 AM EDT VENOUS BLOOD GAS Routine 06/10/2025 4:18 AM EDT PROCALCITONIN Routine 06/10/2025 4:18 AM EDT PHOSPHORUS Routine 06/10/2025 4:18 AM EDT MAGNESIUM Routine 06/10/2025 4:18 AM EDT CALCIUM, IONIZED Routine 06/10/2025 4:18 AM EDT BASIC METABOLIC PANEL Routine 06/10/2025 4:18 AM EDT CBC AND DIFFERENTIAL Routine 06/10/2025 4:18 AM EDT VENTILATOR, ADULT Routine 06/09/2025 8:0 0 PM EDT OXYGEN THERAPY, ADULT Routine 06/09/2025 8:00 PM EDT POCT GLUCOSE BLOOD Routine 06/09/2025 6: 02 PM EDT PASSY JOSE MANUEL SPEAKING VALVE Routine 06/09/2025 4:05 PM EDT VENTILATOR, ADULT Routine 06/09/2025 8:0 2 AM EDT OXYGEN THERAPY, ADULT Routine 06/09/2025 8:02 AM EDT XR CHEST 1 VIEW Routine 06/09/2025 5:53 AM EDT CBC WITH AUTO DIFFERENTIAL Routine 06/09/2025 3:16 AM EDT VENOUS BLOOD GAS Routine 06/09/2025 3:16 AM EDT CBC AND DIFFERENTIAL Routine 06/09/2025 3:16 AM EDT PROCALCITONIN Routine 06/09/2025 3:16 AM EDT PHOSPHORUS Routine 06/09/2025 3:16 AM EDT MAGNESIUM Routine 06/09/2025 3:16 AM EDT CALCIUM, IONIZED Routine 06/09/2025 3:16 AM EDT BASIC METABOLIC PANEL Routine 06/09/2025 3:16 AM EDT VENTILATOR, ADULT Routine 06/08/2025 8: 00 PM EDT OXYGEN THERAPY, ADULT Routine 06/08/2025 8:00 PM EDT VENTILATOR, ADULT Routine 06/08/2025 8:0 2 AM EDT OXYGEN THERAPY, ADULT Routine 06/08/2025 8:02 AM EDT XR CHEST 1 VIEW Routine 06/08/2025 6:05 AM EDT CBC WITH AUTO DIFFERENTIAL Routine 06/08/2025 4:12 AM EDT CBC AND DIFFERENTIAL Routine 06/08/2025 4:12 AM EDT PROCALCITONIN Routine 06/08/2025 4:12 AM EDT PHOSPHORUS Routine 06/08/2025 4:12 AM EDT MAGNESIUM Routine 06/08/2025 4:12 AM EDT CALCIUM, IONIZED Routine 06/08/2025 4:12 AM EDT BASIC METABOLIC PANEL Routine 06/08/2025 4:12 AM EDT VENTILATOR, ADULT Routine 06/07/2025 8:0 0 PM EDT OXYGEN THERAPY, ADULT Routine 06/07/2025 8:00 PM EDT VENTILATOR, ADULT Routine 06/07/2025 8:0 2 AM EDT OXYGEN THERAPY, ADULT Routine 06/07/2025 8:02 AM EDT VENTILATOR, ADULT Routine 06/07/2025 6:3 0 AM EDT XR CHEST 1 VIEW Routine 06/07/2025 5:00 AM EDT MANUAL DIFFERENTIAL - SYSMEX WAM Routine 06/07/2025 4:27 AM EDT BASIC METABOLIC PANEL Routine 06/07/2025 4:27 AM EDT CBC WITH AUTO DIFFERENTIAL Routine 06/07/2025 4:27 AM EDT VENOUS BLOOD GAS Routine 06/07/2025 4:27 AM EDT PHOSPHORUS Routine 06/07/2025 4:27 AM EDT MAGNESIUM Routine 06/07/2025 4:27 AM EDT CALCIUM, IONIZED Routine 06/07/2025 4:27 AM EDT CBC AND DIFFERENTIAL Routine 06/07/2025 4:27 AM EDT OXYGEN THERAPY, ADULT Routine 06/06/2025 8:00 PM EDT OXYGEN THERAPY, ADULT Routine 06/06/2025 8:02 AM EDT CBC WITH AUTO DIFFERENTIAL Routine 06/06/2025 3:40 AM EDT CBC AND DIFFERENTIAL Routine 06/06/2025 3:40 AM EDT CALCIUM, IONIZED Routine 06/06/2025 3:40 AM EDT BASIC METABOLIC PANEL Routine 06/06/2025 3:40 AM EDT HEPATIC FUNCTION PANEL Routine 06/06/2025 3:40 AM EDT PHOSPHORUS Routine 06/06/2025 3:40 AM EDT MAGNESIUM Routine 06/06/2025 3:40 AM EDT VENTILATOR, ADULT Routine 06/05/2025 8:0 0 PM EDT OXYGEN THERAPY, ADULT Routine 06/05/2025 8:00 PM EDT OXYGEN THERAPY, ADULT Routine 06/05/2025 8:00 AM EDT CBC WITH AUTO DIFFERENTIAL Routine 06/05/2025 4:08 AM EDT ACETYLCHOLINE RECEPTOR, MODULATING Routine 06/05/2025 4:08 AM EDT ACETYLCHOLINE RECEPTOR, BLOCKING Routine 06/05/2025 4:08 AM EDT ACETYLCHOLINE RECEPTOR, BINDING Routine 06/05/2025 4:08 AM EDT VENOUS BLOOD GAS Routine 06/05/2025 4:08 AM EDT CBC AND DIFFERENTIAL Routine 06/05/2025 4:08 AM EDT MAGNESIUM Routine 06/05/2025 4:08 AM EDT PHOSPHORUS Routine 06/05/2025 4:08 AM EDT CALCIUM, IONIZED Routine 06/05/2025 4:08 AM EDT BASIC METABOLIC PANEL Routine 06/05/2025 4:08 AM EDT VENTILATOR, ADULT Routine 06/04/2025 8:0 0 PM EDT OXYGEN THERAPY, ADULT Routine 06/04/2025 8:00 PM EDT XR CHEST 1 VIEW Routine 06/04/2025 11:[address] CHEST WO CONTRAST STAT 06/04/2025 9:45 AM EDT VENTILATOR, ADULT Routine 06/04/2025 8:0 0 AM EDT OXYGEN THERAPY, ADULT Routine 06/04/2025 8:00 AM EDT XR CHEST 1 VIEW Routine 06/04/2025 5:25 AM EDT CBC WITH AUTO DIFFERENTIAL Routine 06/04/2025 4:18 AM EDT VENOUS BLOOD GAS STAT 06/04/2025 4:18 AM EDT CBC AND DIFFERENTIAL Routine 06/04/2025 4:18 AM EDT PROCALCITONIN Routine 06/04/2025 4:18 AM EDT PHOSPHORUS Routine 06/04/2025 4:18 AM EDT MAGNESIUM Routine 06/04/2025 4:18 AM EDT CALCIUM, IONIZED Routine 06/04/2025 4:18 AM EDT BASIC METABOLIC PANEL Routine 06/04/2025 4:18 AM EDT VENTILATOR, ADULT Routine 06/04/2025 12: 49 AM EDT VENTILATOR, ADULT Routine 06/04/2025 12: 49 AM EDT OXYGEN THERAPY, ADULT Routine 06/03/2025 8:00 PM EDT VENTILATOR, ADULT Routine 06/03/2025 7:0 5 PM EDT OXYGEN THERAPY, ADULT Routine 06/03/2025 8:02 AM EDT XR CHEST 1 VIEW Routine 06/03/2025 5:45 AM EDT CBC WITH AUTO DIFFERENTIAL Routine 06/03/2025 4:02 AM EDT CENTRAL LINE BLOOD GAS Routine 06/03/2025 4:02 AM EDT BASIC METABOLIC PANEL Routine 06/03/2025 4:02 AM EDT PROCALCITONIN Routine 06/03/2025 4:02 AM EDT PHOSPHORUS Routine 06/03/2025 4:02 AM EDT MAGNESIUM Routine 06/03/2025 4:02 AM EDT CALCIUM, IONIZED Routine 06/03/2025 4:02 AM EDT CBC AND DIFFERENTIAL Routine 06/03/2025 4:02 AM EDT LACTATE Routine 06/03/2025 4:02 AM EDT CHEST PHYSIOTHERAPY Routine 06/03/2025 4 :00 AM EDT CHEST PHYSIOTHERAPY Routine 06/03/2025 1 2:01 AM EDT CHEST PHYSIOTHERAPY Routine 06/02/2025 8 :00 PM EDT OXYGEN THERAPY, ADULT Routine 06/02/2025 8:00 PM EDT CBC WITH AUTO DIFFERENTIAL Routine 06/02/2025 5:20 PM EDT CBC AND DIFFERENTIAL Routine 06/02/2025 5:20 PM EDT CHEST PHYSIOTHERAPY Routine 06/02/2025 4 :34 PM EDT CHEST PHYSIOTHERAPY Routine 06/02/2025 4 :34 PM EDT CHEST PHYSIOTHERAPY Routine 06/02/2025 4 :34 PM EDT CHEST PHYSIOTHERAPY Routine 06/02/2025 4 :34 PM EDT CHEST PHYSIOTHERAPY Routine 06/02/2025 4 :34 PM EDT CHEST PHYSIOTHERAPY Routine 06/02/2025 4 :34 PM EDT CHEST PHYSIOTHERAPY Routine 06/02/2025 4 :34 PM EDT PHOSPHORUS Routine 06/02/2025 12:35 PM EDT MAGNESIUM Routine 06/02/2025 12:35 PM EDT HEPARIN INDUCED PLATELET ANTIBODY Routine 06/02/2025 10:16 AM EDT VENTILATOR, ADULT Routine 06/02/2025 8:0 2 AM EDT OXYGEN THERAPY, ADULT Routine 06/02/2025 8:02 AM EDT TRANSFUSE RED BLOOD CELLS Routine 06/02/2025 7:47 AM EDT POCT GLUCOSE BLOOD Routine 06/02/2025 6: 25 AM EDT XR CHEST 1 VIEW Routine 06/02/2025 5:50 AM EDT PREPARE RBC Routine 06/02/2025 5:22 AM EDT VENOUS BLOOD GAS Routine 06/02/2025 4:53 AM EDT IRON AND TIBC Add-On 06/02/2025 4:05 AM EDT RBC MORPHOLOGY REVIEW Routine 06/02/2025 4:05 AM EDT PROCALCITONIN Routine 06/02/2025 4:05 AM EDT CBC WITH AUTO DIFFERENTIAL Routine 06/02/2025 4:05 AM EDT COMPREHENSIVE METABOLIC PANEL Routine 06/02/2025 4:05 AM EDT PHOSPHORUS Routine 06/02/2025 4:05 AM EDT MAGNESIUM Routine 06/02/2025 4:05 AM EDT CALCIUM, IONIZED Routine 06/02/2025 4:05 AM EDT CBC AND DIFFERENTIAL Routine 06/02/2025 4:05 AM EDT LACTATE Routine 06/02/2025 4:05 AM EDT VENTILATOR, ADULT Routine 06/01/2025 8:0 0 PM EDT OXYGEN THERAPY, ADULT Routine 06/01/2025 8:00 PM EDT PROCALCITONIN Add-On 06/01/2025 1:57 PM EDT CALCIUM, IONIZED Routine 06/01/2025 1:57 PM EDT MAGNESIUM Routine 06/01/2025 1:57 PM EDT VENTILATOR, ADULT Routine 06/01/2025 8:0 2 AM EDT OXYGEN THERAPY, ADULT Routine 06/01/2025 8:02 AM EDT XR CHEST 1 VIEW Routine 06/01/2025 5:47 AM EDT CBC WITH AUTO DIFFERENTIAL Routine 06/01/2025 3:56 AM EDT PHOSPHORUS Routine 06/01/2025 3:56 AM EDT MAGNESIUM Routine 06/01/2025 3:56 AM EDT CALCIUM, IONIZED Routine 06/01/2025 3:56 AM EDT CBC AND DIFFERENTIAL Routine 06/01/2025 3:56 AM EDT LACTATE Routine 06/01/2025 3:56 AM EDT VENTILATOR, ADULT Routine 05/31/2025 8:0 0 PM EDT OXYGEN THERAPY, ADULT Routine 05/31/2025 8:00 PM EDT COMPREHENSIVE METABOLIC PANEL Routine 05/31/2025 3:23 PM EDT CALCIUM, IONIZED Routine 05/31/2025 3:23 PM EDT MAGNESIUM Routine 05/31/2025 3:23 PM EDT ECG 12-LEAD Routine 05/31/2025 2:42 PM EDT VENTILATOR, ADULT Routine 05/31/2025 8:0 3 AM EDT OXYGEN THERAPY, ADULT Routine 05/31/2025 8:03 AM EDT MANUAL DIFFERENTIAL - SYSMEX WAM Routine 05/31/2025 4:25 AM EDT CBC WITH AUTO DIFFERENTIAL Routine 05/31/2025 4:25 AM EDT PHOSPHORUS Routine 05/31/2025 4:25 AM EDT CALCIUM, IONIZED Routine 05/31/2025 4:25 AM EDT MAGNESIUM Routine 05/31/2025 4:25 AM EDT CBC AND DIFFERENTIAL Routine 05/31/2025 4:25 AM EDT BASIC METABOLIC PANEL Routine 05/31/2025 4:25 AM EDT VENTILATOR, ADULT Routine 05/30/2025 8:0 0 PM EDT OXYGEN THERAPY, ADULT Routine 05/30/2025 8:00 PM EDT CBC WITH AUTO DIFFERENTIAL Routine 05/30/2025 4:08 PM EDT CBC AND DIFFERENTIAL Routine 05/30/2025 4:08 PM EDT PHOSPHORUS Routine 05/30/2025 4:08 PM EDT MAGNESIUM Routine 05/30/2025 4:08 PM EDT CALCIUM, IONIZED Routine 05/30/2025 4:08 PM EDT BASIC METABOLIC PANEL Routine 05/30/2025 4:08 PM EDT OCCULT BLOOD STOOL, GUAIAC Routine 05/30/2025 1:55 PM EDT TRANSTHORACIC ECHOCARDIOGRAM (TTE) COMPLETE Routine 05/30/2025 8:58 AM EDT Respiratory distress TRANSFUSE RED BLOOD CELLS Routine 05/30/2025 8:41 AM EDT VENTILATOR, ADULT Routine 05/30/2025 8:0 2 AM EDT OXYGEN THERAPY, ADULT Routine 05/30/2025 8:02 AM EDT VENTILATOR, ADULT Routine 05/30/2025 7:4 5 AM EDT VENTILATOR, ADULT Routine 05/30/2025 7:4 5 AM EDT XR CHEST 1 VIEW STAT 05/30/2025 5:57 AM EDT TYPE AND SCREEN Routine 05/30/2025 5:33 AM EDT PREPARE RBC Routine 05/30/2025 5:21 AM EDT THYROID STIMULATING HORMONE WITH REFLEX TO FREE T4 AND FREE T3 Routine 05/30/2025 4:10 AM EDT HEPARIN AND LOW MOLECULAR WEIGHT ANTI XA LEVEL Timed 05/30/2025 4:10 AM EDT CBC WITH AUTO DIFFERENTIAL Routine 05/30/2025 4:10 AM EDT CBC AND DIFFERENTIAL Routine 05/30/2025 4:10 AM EDT PROCALCITONIN Routine 05/30/2025 4:10 AM EDT PHOSPHORUS Routine 05/30/2025 4:10 AM EDT MAGNESIUM Routine 05/30/2025 4:10 AM EDT CALCIUM, IONIZED Routine 05/30/2025 4:10 AM EDT BASIC METABOLIC PANEL Routine 05/30/2025 4:10 AM EDT CULTURE BLOOD STAT 05/30/2025 2:47 AM EDT CULTURE BLOOD STAT 05/30/2025 2:47 AM EDT CORTISOL Routine 05/30/2025 2:27 AM EDT LACTATE Routine 05/30/2025 2:27 AM EDT HEPARIN AND LOW MOLECULAR WEIGHT ANTI XA LEVEL Timed 05/29/2025 10:02 PM EDT OXYGEN THERAPY, ADULT Routine 05/29/2025 8:00 PM EDT HEPARIN AND LOW MOLECULAR WEIGHT ANTI XA LEVEL Timed 05/29/2025 3:30 PM EDT HEPARIN AND LOW MOLECULAR WEIGHT ANTI XA LEVEL STAT 05/29/2025 10:45 AM EDT ACTIVATED PARTIAL THROMBOPLASTIN TIME STAT 05/29/2025 10:45 AM EDT PROTHROMBIN TIME WITH INR STAT 05/29/2025 10:45 AM EDT VENOUS BLOOD GAS Routine 05/29/2025 9:37 AM EDT D-DIMER Routine 05/29/2025 9:37 AM EDT VAS US DUPLEX LOWER EXT VENOUS BILAT Routine 05/29/2025 9:12 AM EDT Quadriplegia and quadriparesis (CMS/HCC V24, CMS/HCC V28) VENTILATOR, ADULT Routine 05/29/2025 8:0 1 AM EDT OXYGEN THERAPY, ADULT Routine 05/29/2025 8:01 AM EDT XR CHEST 1 VIEW Routine 05/29/2025 6:19 AM EDT VENTILATOR, ADULT Routine 05/29/2025 5:4 2 AM EDT MANUAL DIFFERENTIAL - SYSMEX WAM Routine 05/29/2025 4:40 AM EDT LIPASE Add-On 05/29/2025 4:40 AM EDT CBC WITH AUTO DIFFERENTIAL Routine 05/29/2025 4:40 AM EDT VENOUS BLOOD GAS Routine 05/29/2025 4:40 AM EDT CBC AND DIFFERENTIAL Routine 05/29/2025 4:40 AM EDT AMMONIA Routine 05/29/2025 4:40 AM EDT PROCALCITONIN Routine 05/29/2025 4:40 AM EDT PHOSPHORUS Routine 05/29/2025 4:40 AM EDT MAGNESIUM Routine 05/29/2025 4:40 AM EDT CALCIUM, IONIZED Routine 05/29/2025 4:40 AM EDT BASIC METABOLIC PANEL Routine 05/29/2025 4:40 AM EDT CULTURE SPUTUM Routine 05/28/2025 9:07 PM EDT CULTURE BLOOD Routine 05/28/2025 8:05 PM EDT OXYGEN THERAPY, ADULT Routine 05/28/2025 8:00 PM EDT CHEST PHYSIOTHERAPY Routine 05/28/2025 7 :35 PM EDT CHEST PHYSIOTHERAPY Routine 05/28/2025 7 :35 PM EDT PHOSPHORUS Routine 05/28/2025 4:04 PM EDT MAGNESIUM Routine 05/28/2025 4:04 PM EDT CALCIUM, IONIZED Routine 05/28/2025 4:04 PM EDT BASIC METABOLIC PANEL Routine 05/28/2025 4:04 PM EDT OXYGEN THERAPY, ADULT Routine 05/28/2025 8:01 AM EDT RESPIRATORY VIRUS PANEL MOLECULAR STUDY Routine 05/28/2025 6:17 AM EDT PROCALCITONIN Add-On 05/28/2025 6:04 AM EDT CBC WITH AUTO DIFFERENTIAL Routine 05/28/2025 6:04 AM EDT VANCOMYCIN, TROUGH Timed 05/28/2025 6: 04 AM EDT LACTATE Routine 05/28/2025 6:04 AM EDT CBC AND DIFFERENTIAL Routine 05/28/2025 6:04 AM EDT CALCIUM, IONIZED Routine 05/28/2025 6:04 AM EDT BASIC METABOLIC PANEL Routine 05/28/2025 6:04 AM EDT PHOSPHORUS Routine 05/28/2025 6:04 AM EDT MAGNESIUM Routine 05/28/2025 6:04 AM EDT HEPATIC FUNCTION PANEL Routine 05/28/2025 6:04 AM EDT CENTRAL LINE BLOOD GAS Routine 05/28/2025 6:04 AM EDT XR CHEST 1 VIEW Routine 05/28/2025 5:35 AM EDT VENTILATOR, ADULT Routine 05/27/2025 8:0 1 PM EDT OXYGEN THERAPY, ADULT Routine 05/27/2025 8:01 PM EDT INSERT PICC LINE Routine 05/27/2025 12:4 5 PM EDT NARANJO URINE CULTURE TUBE Routine 05/27/2025 10:44 AM EDT URINALYSIS WITH REFLEX MICROSCOPIC AND CULTURE Routine 05/27/2025 10:44 AM EDT URINALYSIS WITH REFLEX MICROSCOPIC AND CULTURE Routine 05/27/2025 10:44 AM EDT CULTURE URINE Routine 05/27/2025 10:44 AM EDT LEGIONELLA ANTIGEN URINE, EIA Routine 05/27/2025 10:44 AM EDT VENTILATOR, ADULT Routine 05/27/2025 10: 21 AM EDT VENTILATOR, ADULT Routine 05/27/2025 10: 21 AM EDT OXYGEN THERAPY, ADULT Routine 05/27/2025 8:02 AM EDT ARTERIAL BLOOD GAS Routine 05/27/2025 7: 43 AM EDT LT GREEN - LI HEPARIN Routine 05/27/2025 4:55 AM EDT SST - GOLD Routine 05/27/2025 4:55 AM EDT LT BLUE - NA CITRATE Routine 05/27/2025 4:55 AM EDT EXTRA TUBES Routine 05/27/2025 4:55 AM EDT TROPONIN I HIGH SENSITIVITY Routine 05/27/2025 4:55 AM EDT COMPLETE BLOOD COUNT Routine 05/27/2025 4:55 AM EDT PROCALCITONIN STAT 05/27/2025 4:55 AM EDT VENTILATOR, ADULT Routine 05/27/2025 2:0 2 AM EDT VENTILATOR, ADULT Routine 05/27/2025 2:[address] CHEST WO CONTRAST STAT 05/27/2025 1:12 AM EDT CULTURE SPUTUM STAT 05/27/2025 12:39 AM EDT ECG ANNOTATED 05/27/2025 OXYGEN THERAPY, ADULT Routine 05/26/2025 11:52 PM EDT OXYGEN THERAPY, ADULT Routine 05/26/2025 11:52 PM EDT OXYGEN THERAPY, ADULT Routine 05/26/2025 11:52 PM EDT MRSA PCR STAT 05/26/2025 11:37 PM EDT HEPATIC FUNCTION PANEL STAT 05/26/2025 10:06 PM EDT LACTATE, WITH REFLEX STAT 05/26/2025 10:06 PM EDT B-TYPE NATRIURETIC PEPTIDE STAT 05/26/2025 10:06 PM EDT TROPONIN I HIGH SENSITIVITY STAT 05/26/2025 10:06 PM EDT ACTIVATED PARTIAL THROMBOPLASTIN TIME STAT 05/26/2025 10:06 PM EDT PROTHROMBIN TIME WITH INR STAT 05/26/2025 10:06 PM EDT MAGNESIUM STAT 05/26/2025 10:06 PM EDT COMPREHENSIVE METABOLIC PANEL STAT 05/26/2025 10:06 PM EDT CBC WITH AUTO DIFFERENTIAL STAT 05/26/2025 10:06 PM EDT CBC AND DIFFERENTIAL STAT 05/26/2025 10:06 PM EDT CULTURE BLOOD STAT 05/26/2025 10:06 PM EDT CULTURE BLOOD STAT 05/26/2025 10:06 PM EDT [id number], RSV, FLU A AND B QUALITATIVE RT-PCR, INTERNAL LAB STAT 05/26/2025 9:32 PM EDT XR CHEST 1 VIEW STAT 05/26/2025 9:08 PM EDT SST - GOLD Routine 05/26/2025 8:56 PM EDT EXTRA TUBES Routine 05/26/2025 8:56 PM EDT ECG 12-LEAD STAT 05/26/2025 8:43 PM EDT MO CRITICAL CARE 30-74 MINUTES Routine 05/26/2025 8:21 PM EDT IR REPLACE DUOD/J-TUBE PERC W FLUORO Routine 05/19/2025 10:01 AM EDT Quadriplegia and quadriparesis (CMS/HCC V24, CMS/HCC V28) Myasthenia gravis (CMS/HCC V24, CMS/HCC V28) from Last 3 Months Results * (ABNORMAL) Procalcitonin (07/01/2025 3:44 AM EDT) Only the most recent resultswithin the time period is included. Procalcitonin 0.21(H) <=0.16 ng/mL LAB CHEMISTRY METHOD 07/01/2025 7:49 AM EDT [facility] Blood Venous blood specimen / Unknown Venipuncture / Unknown 07/01/2025 3:44 AM EDT 07/01/2025 4:00 AM EDT Narrative [facility] - 07/01/2025 7:49 AM EDT [...] obtained. Parveen Warner DO LAB BLOOD ORDERABLES Final R esult [facility] [address] [place] [address], [place] [phone] * (ABNORMAL) CBC auto differential (07/01/2025 3:44 AM EDT) Only the most recent of35 resultswithin the time period is included. WBC 5.9 4.8 - 10.8 K/mcL LAB HEMETOLOGY METHOD 07/01/2025 4:03 AM EDT [facility] RBC 3.30(L) 3.80 - 4.80 M/mcL LAB HEMETOLOGY METHOD 07/01/2025 4:03 AM EDT [facility] Hemoglobin 7.0(L) 11.5 - 16.0 g/dL LAB HEMETOLOGY METHOD 07/01/2025 4:03 AM EDT [facility] Hematocrit 25.4(L) 35.0 - 47.0 % LAB HEMETOLOGY METHOD 07/01/2025 4:03 AM [facility] MCV 77.2(L) 79.0 - 98.0 FL LAB HEMETOLOGY METHOD 07/01/2025 4:03 AM [facility] MCH 21.3(L) 27.0 - 32.0 pcg LAB HEMETOLOGY METHOD 07/01/2025 4:03 AM [facility] MCHC 27.6(L) 32.0 - 37.0 g/dL LAB HEMETOLOGY METHOD 07/01/2025 4:03 AM [facility] RDW 19.3(H) 11.0 - 15.0 % LAB HEMETOLOGY METHOD 07/01/2025 4:03 AM [facility] Platelets 279 130 - 400 K/mcL LAB HEMETOLOGY METHOD 07/01/2025 4:03 AM [facility] MPV 9.4 7.0 - 11.0 FL LAB HEMETOLOGY METHOD 07/01/2025 4:03 AM [facility] NRBC 0.0 <1.0 % LAB HEMETOLOGY METHOD 07/01/2025 4:03 AM [facility] NRBC Absolute 0.00 <0.10 K/mcL LAB HEMETOLOGY METHOD 07/01/2025 4:03 AM [facility] Neutrophils Relative 80.7 % LAB HEMETOLOGY METHOD 07/01/2025 4:03 AM [facility] Lymphocytes Relative 16.8 % LAB HEMETOLOGY METHOD 07/01/2025 4:03 AM [facility] Monocytes Relative 1.7 % LAB HEMETOLOGY METHOD 07/01/2025 4:03 AM [facility] Eosinophils Relative 0.5 % LAB HEMETOLOGY METHOD 07/01/2025 4:03 AM [facility] Basophils Relative 0.0 % LAB HEMETOLOGY METHOD 07/01/2025 4:03 AM EDT [facility] Immature Granulocytes Relative 0.3 % LAB HEMETOLOGY METHOD 07/01/2025 4:03 AM EDT [facility] Neutrophils Absolute 4.72 1.50 - 7.00 K/mcL LAB HEMETOLOGY METHOD 07/01/2025 4:03 AM EDT [facility] Lymphocytes Absolute 0.98(L) 1.00 - 5.00 K/mcL LAB HEMETOLOGY METHOD 07/01/2025 4:03 AM EDT [facility] Monocytes Absolute 0.10(L) 0.20 - 1.00 K/mcL LAB HEMETOLOGY METHOD 07/01/2025 4:03 AM EDT [facility] Eosinophils Absolute 0.03 0.00 - 0.50 K/mcL LAB HEMETOLOGY METHOD 07/01/2025 4:03 AM EDT [facility] Basophils Absolute 0.00 0.00 - 0.20 K/mcL LAB HEMETOLOGY METHOD 07/01/2025 4:03 AM EDT [facility] Immature Granulocytes Absolute 0.02 0.00 - 0.03 K/mcL LAB HEMETOLOGY METHOD 07/01/2025 4:[facility] Venous blood specimen / Unknown Venipuncture / Unknown 07/01/2025 3:44 AM EDT 07/01/2025 4:00 AM EDT us Parveen Warner DO LAB BLOOD ORDERABLES Final R esult [facility] [address] [place] [address], * Phosphorus (07/01/2025 3:44 AM EDT) Only the most recent of32 resultswithin the time period is included. Phosphorus 4.0 2.5 - 4.5 mg/dL LAB CHEMISTRY METHOD 07/01/2025 4:19 AM EDT [facility] Blood Venous blood specimen / Unknown Venipuncture / Unknown 07/01/2025 3:44 AM EDT 07/01/2025 4:00 AM EDT Parveen Wilbertveronica LAB BLOOD ORDERABLES Final R esult Performing Organization Address City/[facility]/ZIP Co de Phone Number [facility] [address] [place] [address], [place] [phone] * Magnesium (07/01/2025 3:44 AM EDT) Only the most recent of37 resultswithin the time period is included. Magnesium 1.9 1.9 - 2.6 mg/dL LAB CHEMISTRY METHOD 07/01/2025 4:19 AM EDT [facility] Blood Venous blood specimen / Unknown Venipuncture / Unknown 07/01/2025 3:44 AM EDT 07/01/2025 4:00 AM EDT Parveen Warner [facility] BLOOD ORDERABLES Final R esult Performing Organization Address City/[facility] Co de Phone Number [facility] [address] [place] [address], [place] [phone] * (ABNORMAL) Calcium, ionized (07/01/2025 3:44 AM EDT) Only the most recent of34 resultswithin the time period is included. Calcium Ionized 4.44(L) 4.50 - 5.30 mg/dL 07/01/2025 4:03 AM EDT [facility] Blood Venous blood specimen / Unknown Venipuncture / Unknown 07/01/2025 3:44 AM EDT 07/01/2025 4:00 AM EDT Parveen Warner DO LAB BLOOD ORDERABLES Final R esult [facility] [address] [place] [address], * (ABNORMAL) Basic metabolic panel (07/01/2025 3:44 AM EDT) Only the most recent of28 resultswithin the time period is included. Sodium 134 133 - 145 mmol/L LAB CHEMISTRY METHOD 07/01/2025 4:21 AM [facility] Potassium 4.7 3.5 - 5.5 mmol/L LAB CHEMISTRY METHOD 07/01/2025 4:21 AM [facility] Chloride 97 96 - 110 mmol/L LAB CHEMISTRY METHOD 07/01/2025 4:21 AM [facility] CO2 36(H) 21 - 32 mmol/L LAB CHEMISTRY METHOD 07/01/2025 4:21 AM [facility] Anion Gap 1(L) 3 - 11 LAB CHEMISTRY METHOD 07/01/2025 4:21 AM [facility] Glucose 83 70 - 100 mg/dL LAB CHEMISTRY METHOD 07/01/2025 4:21 AM [facility] BUN 10 5 - 25 mg/dL LAB CHEMISTRY METHOD 07/01/2025 4:21 AM [facility] Creatinine <0.15(L) 0.50 - 1.10 mg/dL LAB CHEMISTRY METHOD 07/01/2025 4:21 AM [facility] eGFR LAB CHEMISTRY METHOD 07/01/2025 4:21 AM [facility] Comment:Creatinine above or below reportable range; unable to calculate eGFR. BUN/Creatinine Ratio LAB CHEMISTRY METHOD 07/01/2025 4:21 AM [facility] Comment:Creatinine and/or Ur ea Nitrogen (BUN) above or below reportable range; unable to calculate BUN/Creatinine Ratio. Calcium 8.2(L) 8.5 - 10.5 mg/dL LAB CHEMISTRY METHOD 07/01/2025 4:21 AM T [facility] Blood Venous blood specimen / Unknown Venipuncture / Unknown 07/01/2025 3:44 AM EDT 07/01/2025 4:00 AM EDT us Parveen Warner DO LAB BLOOD ORDERABLES Final R esult [facility] [address] [place] [address], [place] [phone] * (ABNORMAL) Manual differential (06/30/2025 4:17 AM EDT) Only the most recent of7 resultswithin the time period is included. Neutrophils % 80.0 % LAB HEMETOLOGY METHOD [facility] Bands % 2.0 % LAB HEMETOLOGY METHOD 06/30/2025 5:22 AM [facility] Lymphocytes % 17.0 % LAB HEMETOLOGY METHOD 06/30/2025 5:22 AM [facility] Monocytes % 1.0 % LAB HEMETOLOGY METHOD 06/30/2025 5:22 AM [facility] Eosinophils % 0.0 % LAB HEMETOLOGY METHOD 06/30/2025 5:22 AM [facility] Basophils % 0.0 % LAB HEMETOLOGY METHOD 06/30/2025 5:22 AM [facility] Neutrophils Absolute Manual 3.52 1.50 - 7.00 K/mcL LAB HEMETOLOGY METHOD 06/30/2025 5:22 AM [facility] Bands Absolute Manual 0.09(H) 0.00 - 0.00 K/mcL LAB HEMETOLOGY METHOD 06/30/2025 5:22 AM [facility] Lymphocytes Absolute 0.75(L) 1.00 - 5.00 K/mcL LAB HEMETOLOGY METHOD 06/30/2025 5:22 AM EDT [facility] Monocytes Absolute Manual 0.04(L) 0.20 - 1.00 K/mcL LAB HEMETOLOGY METHOD 06/30/2025 5:22 AM EDT [facility] Eosinophils Absolute Manual 0.00 0.00 - 0.50 K/mcL LAB HEMETOLOGY METHOD 06/30/2025 5:22 AM EDT [facility] Basophils Absolute Manual 0.00 0.00 - 0.20 K/mcL LAB HEMETOLOGY METHOD 06/30/2025 5:22 AM EDT [facility] Rbc Morphology Present( A) Consistent with indices, Normal for LAB HEMETOLOGY METHOD 06/30/2025 5:22 AM EDT [facility] Comment:RBC: Morphology agre es with CBC Platelet Morphology - WAM See Note(A) Normal LAB HEMETOLOGY METHOD 06/30/2025 5:22 AM EDT [facility] Comment:PLT: Normal Blood Venous blood specimen / Unknown Venipuncture / Unknown 06/30/2025 4:17 AM EDT 06/30/2025 4:36 AM EDT us Parveen Warner DO LAB BLOOD ORDERABLES Final R esult [facility] [address] [place] [address], * XR Chest 1 View (06/29/2025 6:04 AM EDT) Only the most recent of22 resultswithin the time period is included. Anatomical Region Laterality Modality Body Radiographic Liliana ging 06/29/2025 8:26 AM EDT Impressions 06/29/2025 8:27 AM EDT Impression: 1. Satisfactory positioning of support tubes and line. 2. No significant change in bilateral pulmonary infiltrates. Telerad PA ([id number]) -------- FINAL REPORT -------- Dictated By: Elissa Reynolds Dictated Date: 06/29/2025 08:26 ET Assigned Physician: Elissa Reynolds Reviewed and Electronically Signed By: Elissa Reynolds Signed Date: 06/29/2025 08:27 ET Workstation ID: [id number] Transcribed By: Self Edit Transcribed Date: 06/29/2025 [...] change in bilateral pulmonary infiltrates. Telerad PA ([id number]) -------- FINAL REPORT -------- Dictated By: Elissa Reynolds Dictated Date: 06/29/2025 08:26 ET Assigned Physician: Elissa Reynolds Reviewed and Electronically Signed By: Elissa Reynolds Signed Date: 06/29/2025 08:27 ET Workstation ID: [id number] Transcribed By: Self Edit Transcribed Date: 06/29/2025 08:26 ET us Araseli Morton MD IMG XR PROCEDURES Final Resul t * Lactate (06/29/2025 3:29 AM EDT) Only the most recent of8 resultswithin the time period is included. Lactate 0.5 0.4 - 2.0 mmol/L LAB CHEMISTRY METHOD 06/29/2025 4:14 AM EDT [facility] Blood Blood sample taken from central line / Unknown Existing Catheter / Unknown 06/29/2025 3:29 AM EDT 06/29/2025 3:46 AM EDT us Araseli Morton MD LAB BLOOD ORDERABLES Final Re sult [facility] [address] [place] [address], * (ABNORMAL) Venous blood gas (06/29/2025 3:29 AM EDT) Only the most recent of13 resultswithin the time period is included. pH, Agusto 7.40 7.32 - 7.42 pH 06/29/2025 3:48 AM EDT [facility] pCO2, Agusto 57(H) 41 - 51 mmHg 06/29/2025 3:48 AM EDT [facility] pO2, Agusto 40 25 - 40 mmHg 06/29/2025 3:48 AM EDT [facility] HCO3, Venous 31.7(H) 22.0 - 26.0 mmol/L 06/29/2025 3:48 AM EDT [facility] O2 Sat, Agusto 68.1 % 06/29/2025 3:48 AM EDT [facility] Base Excess, Agusto 9.3(H) -2.0 - 2.0 mmol/L 06/29/2025 3:48 AM EDT [facility] Blood Venous blood specimen / Unknown Existing Catheter / Unknown 06/29/2025 3:29 AM EDT 06/29/2025 3:45 AM EDT us Araseli Morton MD LAB BLOOD ORDERABLES Final Re sult [facility] [address] [place] [address], * (ABNORMAL) Comprehensive metabolic panel (06/29/2025 3:29 AM EDT) Only the most recent of7 resultswithin the time period is included. Sodium 134 133 - 145 mmol/L LAB CHEMISTRY METHOD 06/29/2025 4:21 AM [facility] Potassium 4.4 3.5 - 5.5 mmol/L LAB CHEMISTRY METHOD 06/29/2025 4:21 AM [facility] Chloride 97 96 - 110 mmol/L LAB CHEMISTRY METHOD 06/29/2025 4:21 AM [facility] CO2 35(H) 21 - 32 mmol/L LAB CHEMISTRY METHOD 06/29/2025 4:21 AM [facility] Anion Gap 2(L) 3 - 11 LAB CHEMISTRY METHOD 06/29/2025 4:21 AM [facility] Glucose 87 70 - 100 mg/dL LAB CHEMISTRY METHOD 06/29/2025 4:21 AM [facility] BUN 10 5 - 25 mg/dL LAB CHEMISTRY METHOD 06/29/2025 4:21 AM [facility] Creatinine 0.17(L) 0.50 - 1.10 mg/dL LAB CHEMISTRY METHOD 06/29/2025 4:21 AM [facility] eGFR 166 >=60 mL/min/1. 73m2 LAB CHEMISTRY METHOD 06/29/2025 4:21 AM [facility] Comment:Calculation based on the Chronic Kidney Disease Epidemiology Collaboration (CKD-EPI) equation refit without adjustment for race. BUN/Creatinine Ratio 58.8 LAB CHEMISTRY METHOD 06/29/2025 4:21 AM [facility] Calcium 8.2(L) 8.5 - 10.5 mg/dL LAB CHEMISTRY METHOD 06/29/2025 4:21 AM [facility] AST (SGOT) 15 10 - 42 unit/L LAB CHEMISTRY METHOD 06/29/2025 4:21 AM [facility] ALT (SGPT) 6(L) 10 - 60 unit/L LAB CHEMISTRY METHOD 06/29/2025 4:21 AM [facility] Alkaline Phosphatase 53 42 - 121 unit/L LAB CHEMISTRY METHOD 06/29/2025 4:21 AM [facility] Total Protein 6.8 6.0 - 8.0 g/dL LAB CHEMISTRY METHOD 06/29/2025 4:21 AM [facility] Albumin 2.0(L) 3.2 - 5.0 g/dL LAB CHEMISTRY METHOD 06/29/2025 4:21 AM [facility] Total Bilirubin 0.2 0.0 - 1.4 mg/dL LAB CHEMISTRY METHOD 06/29/2025 4:21 AM [facility] Blood Blood sample taken from central line / Unknown Existing Catheter / Unknown 06/29/2025 3:29 AM EDT 06/29/2025 3:47 AM EDT us Araseli Morton MD LAB BLOOD ORDERABLES Final Re sult [facility] [address] [place] [address], [place] [phone] * (ABNORMAL) Central line blood gas (06/28/2025 4:22 AM EDT) Only the most recent of12 resultswithin the time period is included. [facility] pH Central Line 7.39 7.32 - 7.43 06/28/2025 4:46 AM EDT [facility] pCO2 Central Line 60 40 - 60 mmHg 06/28/2025 4:46 AM EDT [facility] pO2 Central Line 45 30 - 55 mmHg 06/28/2025 4:46 AM EDT [facility] HCO3 Central Line 33(H) 22 - 26 mmol/L 06/28/2025 4:46 AM EDT [facility] O2 Saturation, Central Line 78 % 06/28/2025 4:46 AM EDT [facility] Base Excess, Central Line 10(H) -2 - 2 mmol/L 06/28/2025 4:46 AM EDT [facility] Blood Blood sample taken from central line / Unknown Existing Catheter / Unknown 06/28/2025 4:22 AM EDT 06/28/2025 4:40 AM EDT us Jada Grissom MD LAB BLOOD ORDERABLES Final Re sult [facility] [address] [place] [address], * ECG 12 lead (06/26/2025 2:26 PM EDT) Only the most recent of4 resultswithin the time period is included. [facility] Ventricular Rate ECG 94 BPM GEMUSE Atrial Rate 94 BPM GEMUSE P-R Interval 150 ms GEMUSE QRS Duration 82 ms GEMUSE Q-T Interval 358 ms GEMUSE QTc 447 ms GEMUSE P Wave [place] 40 degrees GEMUSE R [place] 21 degrees GEMUSE T [place] 26 degrees GEMUSE ECG Interpretation Normal sinus rhythm Possible Left atrial enlargement Borderline ECG When compared with ECG of 20-JUN-2025 19:16, No significant change was found Confirmed by VANESSA MITTAL ([id number]) on 06/28/2025 9:11:36 AM GEMUSE 06/26/2025 2:26 PM EDT 06/28/2025 9:11 AM EDT us Jada Grissom MD ECG ORDERABLES Final Result KATIE * Vascular US duplex lower extremity venous left (06/26/2025 2:18 PM EDT) Anatomical Region Laterality Modality Vascular, Abdomen Ultrasound 06/26/2025 2:27 PM EDT Impressions 06/26/2025 2:31 PM EDT Impression: 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 No significant change. Teleharris SUAREZ ([id number]) -------- FINAL REPORT -------- Dictated By: Elissa Reynolds Dictated Date: 06/26/2025 14:27 ET Assigned Physician: Elissa Reynolds Reviewed and Electronically Signed By: Elissa Reynolds Signed Date: 06/26/2025 14:31 ET Workstation ID: [id number] Transcribed By: Self Edit Transcribed Date: 06/26/2025 [...] common femoral vein,likely chronic. No significant change. Lilian SUAREZ ([id number]) -------- FINAL REPORT -------- Dictated By: Elissa Reynolds Dictated Date: 06/26/2025 14:27 ET Assigned Physician: Elissa Reynolds Reviewed and Electronically Signed By: Elissa Reynolds Signed Date: 06/26/2025 14:31 ET Workstation ID: [id number] Transcribed By: Self Edit Transcribed Date: 06/26/2025 14:27 ET Jada Grissom MD CV VASCULAR PROCEDURES Final Result * (ABNORMAL) Hepatic function panel (06/24/2025 3:52 AM EDT) Only the most recent of5 resultswithin the time period is included. Total Protein 6.6 6.0 - 8.0 g/dL LAB CHEMISTRY METHOD 06/24/2025 4:56 AM EDT [facility] Albumin 2.1(L) 3.2 - 5.0 g/dL LAB CHEMISTRY METHOD 06/24/2025 4:56 AM EDT [facility] Total Bilirubin 0.3 0.0 - 1.4 mg/dL LAB CHEMISTRY METHOD 06/24/2025 4:56 AM EDT [facility] Bilirubin, Direct <0.1 0.0 - 0.3 mg/dL LAB CHEMISTRY METHOD 06/24/2025 4:56 AM EDT [facility] Bilirubin, Indirect LAB CHEMISTRY METHOD 06/24/2025 4:56 AM EDT [facility] Comment:Unable to calculate Indirect Bilirubin. ALT (SGPT) 9(L) 10 - 60 unit/L LAB CHEMISTRY METHOD 06/24/2025 4:56 AM EDT [facility] AST (SGOT) 14 10 - 42 unit/L LAB CHEMISTRY METHOD 06/24/2025 4:56 AM EDT [facility] Alkaline Phosphatase 54 42 - 121 unit/L LAB CHEMISTRY METHOD 06/24/2025 4:56 AM EDT [facility] Blood Blood sample taken from central line / Unknown Venipuncture / Unknown 06/24/2025 3:52 AM EDT 06/24/2025 4:25 AM EDT us Jada Grissom MD LAB BLOOD ORDERABLES Final Re sult [facility] [address] [place] [address], * (ABNORMAL) Complete blood count (06/22/2025 12:04 PM EDT) Only the most recent of2 resultswithin the time period is included. WBC 6.5 4.8 - 10.8 K/mcL LAB HEMETOLOGY METHOD 06/22/2025 12:34 PM EDT [facility] RBC 3.40(L) 3.80 - 4.80 M/mcL LAB HEMETOLOGY METHOD 06/22/2025 12:34 PM EDT [facility] Hemoglobin 7.5(L) 11.5 - 16.0 g/dL LAB HEMETOLOGY METHOD 06/22/2025 12:34 PM EDT [facility] Hematocrit 27.5(L) 35.0 - 47.0 % LAB HEMETOLOGY METHOD 06/22/2025 12:34 PM EDT [facility] MCV 80.9 79.0 - 98.0 FL LAB HEMETOLOGY METHOD 06/22/2025 12:34 PM EDT [facility] MCH 22.1(L) 27.0 - 32.0 pcg LAB HEMETOLOGY METHOD 06/22/2025 12:34 PM EDT [facility] MCHC 27.3(L) 32.0 - 37.0 g/dL LAB HEMETOLOGY METHOD 06/22/2025 12:34 PM EDT [facility] RDW 19.3(H) 11.0 - 15.0 % LAB HEMETOLOGY METHOD 06/22/2025 12:34 PM EDT [facility] Platelets 217 130 - 400 K/mcL LAB HEMETOLOGY METHOD 06/22/2025 12:34 PM EDT [facility] MPV 10.4 7.0 - 11.0 FL LAB HEMETOLOGY METHOD 06/22/2025 12:34 PM EDT [facility] NRBC 0.0 <1.0 % LAB HEMETOLOGY METHOD 06/22/2025 12:34 PM EDT [facility] NRBC Absolute 0.00 <0.10 K/mcL LAB HEMETOLOGY METHOD 06/22/2025 12:34 PM EDT [facility] Blood Venous blood specimen / Unknown Venipuncture / Unknown 06/22/2025 12:04 PM EDT 06/22/2025 12:15 PM EDT us Edwar SUAREZ LAB BLOOD ORDERABLES Final Resul t [facility] [address] [place] [address], * Transfuse RBC (06/22/2025 11:06 AM EDT) Only the most recent of3 resultswithin the time period is included. Edwar Stiles PA BLOOD TRANSFUSION ORDERABLES Fin al Result * Antibody identification (06/22/2025 6:22 AM EDT) Pathologist [facility] Antibody Identification K Antibody (Rita) 06/22/2025 8:51 AM EDT [facility] Blood Venous blood specimen / Unknown Venipuncture / Unknown 06/22/2025 6:22 AM EDT 06/22/2025 6:32 AM EDT [facility] BLOOD BANK TEST ORDERABLES F inal Result Performing Organization Address City/[facility]/ZIP Co de Phone Number [facility] [address] [place] [address], [place] [phone] * Type and screen (06/22/2025 6:22 AM EDT) Only the most recent of2 resultswithin the time period is included. Pathologist [facility] ABO Group O 06/22/2025 8:49 AM EDT [facility] Rh Type Positive 06/22/2025 8:49 AM EDT [facility] Antibody Screen Positive 06/22/2025 8:49 AM EDT [facility] Blood Venous blood specimen / Unknown Venipuncture / Unknown 06/22/2025 6:22 AM EDT 06/22/2025 6:32 AM EDT [facility] BLOOD BANK TEST ORDERABLES F inal Result [facility] [address] [place] [address], [place] [phone] * Prepare RBC: 1 Units (06/22/2025 5:52 AM EDT) Only the most recent of3 resultswithin the time period is included. Product Code [id number] 06/22/2025 9:13 AM EDT [facility] Unit Number [id number] 06/22/20 9:13 AM EDT [facility] Crossmatch Compatible 06/22/2025 8:53 AM EDT [facility] Dispense Status Transfused 06/22/2025 9:13 AM EDT [facility] Unit ABO Rh ONEG 06/22/2025 9:13 AM EDT [facility] Unit Expiration Date Time [id number] 06/22/2025 9:13 AM EDT [facility] Unit Blood Type 9500 06/22/2025 9:13 AM EDT [facility] Blood Venous blood specimen / Unknown 06/22/2025 5:52 AM EDT 06/22/2025 6:32 AM EDT us Edwar Linsey PA BLOOD BANK PRODUCT ORDERABLES Fi nal Result [facility] [address] [place] [address], * (ABNORMAL) Culture sputum (06/21/2025 3:59 PM EDT) Only the most recent of3 resultswithin the time period is included. Culture, Sputum Serratia marcescens(A) LAURIE 06/25/2025 8:52 AM EDT [facility] Comment: The organism value for this result has been updated. These results have been appended to the previously preliminary verified report. This is an edited result. Previous organism was Gram negative bacilli on 06/23/2025 at 0913 EDT. Culture, Sputum Pseudomonas aeruginosa(A) LAURIE 06/25/2025 8:52 AM EDT [facility] Comment: The organism value for this result has been updated. These results have been appended to the previously preliminary verified report. Gram Stain Result No Epithelial cells 06/25/2025 8:52 AM EDT [facility] Gram Stain Result Few Polymorphonuclear leukocytes 06/25/2025 8:52 AM EDT [facility] Gram Stain Result No organisms seen 06/25/2025 8:52 AM EDT [facility] Sputum, aspirated Lung structure / [...] LAURIE <=0.06 ug/ml: Susceptible Serratia marcescens Levofloxacin LAURIE <=0.12 ug/ml: Susceptible Serratia marcescens Trimethoprim/Sulfame thox azole LAURIE <=20 ug/ml: Susceptible Pseudomonas aeruginosa Piperacillin/Tazobactam LAURIE 8 ug/ml: Susceptible Pseudomonas aeruginosa Ceftazidime LAURIE 2 ug/ml: Susceptible Pseudomonas aeruginosa Meropenem LAURIE 1 ug/ml: Susceptible Pseudomonas aeruginosa Ciprofloxacin LAURIE 2 ug/ml: Resistant Pseudomonas aeruginosa Levofloxacin LAURIE 4 ug/ml: Resistant Pseudomonas aeruginosa Cefepime DISK DIFFUSION Susceptible us Edwar SUAREZ LAB MICROBIOLOGY - GENERAL ORDER ALEJANDRA Final Result [facility] [address] [place] [address], * POCT Glucose, blood (06/21/2025 11:17 AM EDT) Only the most recent of6 resultswithin the time period is included. [facility] Glucose POCT 88 70 - 100 mg/dL 06/21/2025 11:18 AM EDT [facility] Blood Capillary blood specimen / Unknown 06/21/2025 11:17 AM EDT 06/21/2025 11:19 AM EDT Araseli Morton MD LAB POINT OF CARE TE ST DOCKED DEVICE UNSOLICITED RESULTS Final Result [facility] [address] [place] [address], * Respiratory virus panel molecular study (06/21/2025 4:32 AM EDT) Only the most recent of2 resultswithin the time period is included. [facility] Adenovirus Detection by PCR Not Detected Not Detected LAB MICROBIOLOGY METHOD 06/21/2025 5:50 AM EDT [facility] Influenza A PCR Not Detected Not Detected LAB MICROBIOLOGY METHOD 06/21/2025 5:50 AM EDT [facility] Influenza B PCR Not Detected Not Detected LAB MICROBIOLOGY METHOD 06/21/2025 5:50 AM EDT [facility] Coronavirus 229E Not Detected Not Detected LAB MICROBIOLOGY METHOD 06/21/2025 5:50 AM EDT [facility] Coronavirus HKU1 Not Detected Not Detected LAB MICROBIOLOGY METHOD 06/21/2025 5:50 AM EDT [facility] Coronavirus OC43 Not Detected Not Detected LAB MICROBIOLOGY METHOD 06/21/2025 5:50 AM EDT [facility] Coronavirus NL63 Not Detected Not Detected LAB MICROBIOLOGY METHOD 06/21/2025 5:50 AM EDT [facility] Parainfluenza Virus 1 Not Detected Not Detected LAB MICROBIOLOGY METHOD 06/21/2025 5:50 AM EDT [facility] Parainfluenza Virus 2 Not Detected Not Detected LAB MICROBIOLOGY METHOD 06/21/2025 5:50 AM EDT [facility] Parainfluenza Virus 3 Not Detected Not Detected LAB MICROBIOLOGY METHOD 06/21/2025 5:50 AM EDT [facility] Parainfluenza Virus 4 Not Detected Not Detected LAB MICROBIOLOGY METHOD 06/21/2025 5:50 AM EDT [facility] RSV PCR Not Detected Not Detected LAB MICROBIOLOGY METHOD 06/21/2025 5:50 AM EDT [facility] Human Metapneumovirus A and B Not Detected Not Detected LAB MICROBIOLOGY METHOD 06/21/2025 5:50 AM EDT [facility] Rhinovirus/Entero virus Not Detected Not Detected LAB MICROBIOLOGY METHOD 06/21/2025 5:50 AM EDT [facility] Bordetella pertussis Not Detected Not Detected LAB MICROBIOLOGY METHOD 06/21/2025 5:50 AM EDT [facility] Bordetella parapertussis Not Detected Not Detected LAB MICROBIOLOGY METHOD 06/21/2025 5:50 AM EDT [facility] Mycoplasma pneumo by PCR Not Detected Not Detected LAB MICROBIOLOGY METHOD 06/21/2025 5:50 AM EDT [facility] Chlamydia pneumoniae Not Detected Not Detected LAB MICROBIOLOGY METHOD 06/21/2025 5:50 AM EDT [facility] SARS COV-2 Not Detected Not Detected LAB MICROBIOLOGY METHOD 06/21/2025 5:50 AM EDT [facility] Swab Both anterior nares / Unknown Non-blood Collection / Unknown 06/21/2025 4:32 AM EDT 06/21/2025 4:58 AM EDT [facility] - 06/21/2025 5:50 AM EDT Testing was performed using the [employer] Respiratory Pathogen PCR Assay. All results must [...] that are below the limit of detection. Edwar SUAREZ LAB MICROBIOLOGY - GENERAL ORDER ALEJANDRA Final Result Performing Organization Address City/[facility]/ZIP Co de Phone Number [facility] [address] [place] [address], [place] [phone] * MRSA molecular study (06/21/2025 4:13 AM EDT) Only the most recent of2 resultswithin the time period is included. Pathologist [facility] MRSA Screen PCR Not Detected Not Detected LAB MICROBIOLOGY METHOD 06/21/2025 9:00 AM EDT [facility] Swab Both anterior nares / Unknown Non-blood Collection / Unknown 06/21/2025 4:13 AM EDT 06/21/2025 4:32 AM EDT Ronnie Sierra MD LAB MICROBIOLOGY - GENERAL ORDER ALEJANDRA Final Result Performing Organization Address [facility] Co de Phone Number [facility] [address] [place] [address], [place] [phone] * Vascular US duplex lower extremity venous bilateral (06/21/2025 2:38 AM EDT) Only the most recent of2 resultswithin the time period is included. Anatomical Region Laterality Modality Vascular, Abdomen Ultrasound 06/21/2025 4:30 AM EDT Addenda Addendum by Vanessa Frias MD on 06/21/2025 4:38 AM EDT [...] This document has been electronically signed by: Vanessa Frias MD on 06/21/2025 04:30:23 Narrative 06/21/2025 [...] appear patent. No popliteal cyst. Procedure Note Vanessa Frias MD - 06/21/2025 INDICATION: DVT Hx [...] This document has been electronically signed by: Vanessa Frias MD on 06/21/2025 04:30:23 Edwar SUAREZ CV VASCULAR PROCEDURES Edited Re sult - Final * CT Angio Chest wo and/or w [...] This document has been electronically signed by: Vansesa Frias MD on 06/21/2025 01:37:23 Narrative 06/21/2025 [...] present at the thoracic spine. Procedure Note Vanessa Frias MD - 06/21/2025 INDICATION: PE suspected, [...] This document has been electronically signed by: Vanessa Frias MD on 06/21/2025 01:37:23 Ronnie Sierra MD IMG CT PROCEDURES Final Result * ECG-Annotated (06/21/2025) Only the most recent of2 resultswithin the time period is included. Provider Onbase ECG ORDERABLES Final Result * Troponin I high sensitivity (06/20/2025 10:12 PM EDT) Only the most recent of4 resultswithin the time period is included. High Sensitivity Troponin I 12 <=54 ng/L LAB CHEMISTRY METHOD 06/20/2025 10:57 PM EDT [facility] Blood Venous blood specimen / Unknown Venipuncture / Unknown 06/20/2025 10:12 PM EDT 06/20/2025 10:18 PM EDT Narrative [facility] - 06/20/2025 10:57 PM EDT High levels of biotin in samples may falsely decrease hsTroponin values. Use caution when interpreting hsTroponin results in patients taking biotin who exhibit renal impairment (eGFR <60) or in patients taking more than 20 mg/day of biotin. us Ronnie Sierra MD LAB BLOOD ORDERABLES Final Resul t Performing Organization Address City/[facility] Co de Phone Number [facility] [address] [place] [address], [place] [phone] * SST tube (06/20/2025 10:12 PM EDT) Only the most recent of3 resultswithin the time period is included. Extra Tube Hold for add-ons. 06/21/2025 12:01 AM EDT [facility] Comment:Auto resulted. Blood Venous blood specimen / Unknown 06/20/2025 10:12 PM EDT 06/20/2025 10:19 PM EDT us Ronnie Sierra MD LAB BLOOD ORDERABLES Final Resul t Performing Organization Address [facility] de Phone Number [facility] [address] [place] [address], [place] [phone] * APTT (06/20/2025 10:12 PM EDT) Only the most recent of3 resultswithin the time period is included. aPTT 30.7 24.1 - 39.3 sec LAB COAGULATION METHOD 06/20/2025 10:44 PM EDT [facility] Blood Venous blood specimen / Unknown Venipuncture / Unknown 06/20/2025 10:12 PM EDT 06/20/2025 10:44 PM EDT us Ronnie Sierra MD LAB BLOOD ORDERABLES Final Resul t Performing Organization Address [facility] Co de Phone Number [facility] [address] [place] [address], [place] [phone] * Protime-INR (06/20/2025 10:12 PM EDT) Only the most recent of4 resultswithin the time period is included. [facility] Protime 13.6 10.6 - 13.9 sec LAB COAGULATION METHOD 06/20/2025 10:44 PM EDT [facility] INR 1.1 LAB COAGULATION METHOD 06/20/2025 10:44 PM EDT [facility] Blood Venous blood specimen / Unknown Venipuncture / Unknown 06/20/2025 10:12 PM EDT 06/20/2025 10:44 PM EDT Ronnie Sierra MD LAB BLOOD ORDERABLES Final Resul t [facility] [address] [place] [address], [place] [phone] * hCG, serum, qualitative (06/20/2025 10:12 PM EDT) [facility] hCG Qual Negative Negative 06/20/2025 11:30 PM EDT [facility] Blood Venous blood specimen / Unknown 06/20/2025 10:12 PM EDT 06/20/2025 10:19 PM EDT Edwar SUAREZ LAB BLOOD ORDERABLES Final Resul t Performing Organization Address City/[facility]/ZIP Co de Phone Number [facility] [address] [place] [address], [place] [phone] * B-type natriuretic peptide (06/20/2025 10:12 PM EDT) Only the most recent of2 resultswithin the time period is included. [facility] BNP 93 <=100 pcg/mL LAB CHEMISTRY METHOD 06/20/2025 11:05 PM EDT [facility] Blood Venous blood specimen / Unknown Venipuncture / Unknown 06/20/2025 10:12 PM EDT 06/20/2025 10:18 PM EDT Edwar SUAREZ LAB BLOOD ORDERABLES Final Resul t [facility] [address] [place] [address], [place] [phone] * (ABNORMAL) Urinalysis with reflex microscopic and culture (06/20/2025 8:18 PM EDT) Only the most recent of2 resultswithin the time period is included. Specific [place] Urine 1.023 1.003 - 1.030 LAB URINALYSIS - AUTOMATED METHOD 06/20/2025 8:39 PM EDT [facility] pH, Urine 8.5(A) 5.0 - 8.0 pH LAB URINALYSIS - AUTOMATED METHOD 06/20/2025 8:39 PM EDT [facility] Leukocytes, Urine Trace(A) Negative LAB URINALYSIS - AUTOMATED METHOD 06/20/2025 8:[facility] Nitrite, Urine Negative Negative LAB URINALYSIS - AUTOMATED METHOD 06/20/2025 8:39 PM EDT [facility] Protein, Urine 30(A) <=Trace mg/dL LAB URINALYSIS - AUTOMATED METHOD 06/20/2025 8:39 PM EDT [facility] Glucose, Urine Negative Negative mg/dL LAB URINALYSIS - AUTOMATED METHOD 06/20/2025 8:39 PM EDT [facility] Ketones, Urine Negative Negative mg/dL LAB URINALYSIS - AUTOMATED METHOD 06/20/2025 8:39 [facility] Urobilinogen, Urine 0.2 0.2 - 1.0 mg/dL LAB URINALYSIS - AUTOMATED METHOD 06/20/2025 8:39 PM [facility] Bilirubin, Urine Negative Negative LAB URINALYSIS - AUTOMATED METHOD 06/20/2025 8:39 PM [facility] Blood, Urine Negative Negative LAB URINALYSIS - AUTOMATED METHOD 06/20/2025 8:39 PM EDT [facility] RBC, Urine 4.0 0 - 4 /HPF LAB URINALYSIS - AUTOMATED METHOD 06/20/2025 8:39 PM EDT [facility] WBC, Urine 5.6(H) 0 - 4 /HPF LAB URINALYSIS - AUTOMATED METHOD 06/20/2025 8:39 PM EDT [facility] Squamous Epithelial, Urine 78(H) 0 - 60 /LPF LAB URINALYSIS - AUTOMATED METHOD 06/20/2025 8:39 PM EDT [facility] Bacteria, Urine Negative Negative /HPF LAB URINALYSIS - AUTOMATED METHOD 06/20/2025 8:39 PM EDT [facility] Hyaline Casts, Urine 1.6 0 - 3 /LPF LAB URINALYSIS - AUTOMATED METHOD 06/20/2025 8:39 PM EDT [facility] Urine Urine specimen obtained by clean catch procedure / Unknown Non-blood Collection / Unknown 06/20/2025 8:18 PM EDT 06/20/2025 8:27 PM EDT us Ronnie Sierra MD LAB URINE ORDERABLES Final Resul t Performing Organization Address [facility]/State/ZIP Co de Phone Number [facility] [address] [place] [address], [place] [phone] * [place]jo urine culture tube (06/20/2025 8:18 PM EDT) Only the most recent of2 resultswithin the time period is included. Extra Tube Hold for add-ons. 06/20/2025 10:02 PM EDT [facility] Comment:Auto resulted. Urine Urine specimen obtained by clean catch procedure / Unknown Non-blood Collection / Unknown 06/20/2025 8:18 PM EDT 06/20/2025 8:27 PM EDT us Ronnie Sierra MD LAB URINE ORDERABLES Final Resul t Performing Organization Address City/[facility] Co de Phone Number [facility] [address] [place] [address], [place] [phone] * Legionella antigen urine, EIA (06/20/2025 8:18 PM EDT) Only the most recent of2 resultswithin the time period is included. Legionella Antigen, Ur Negative Negative 06/20/2025 10:34 PM EDT [facility] Urine Urine specimen obtained by clean catch procedure / Unknown Non-blood Collection / Unknown 06/20/2025 8:18 PM EDT 06/20/2025 8:39 PM EDT Narrative [facility] - 06/20/2025 10:34 PM EDT Negative for Legionella pneumophilia serogroup 1 antigen. This presumptive result suggests no current or recent infection due to L. pneumophilia serogroup 1. Culture is recommended if Legionella infection is till suspected, as other serogroups and species of Legionella are not detected by this test. Edwar SUAREZ LAB URINE ORDERABLES Final Resul t Performing Organization Address [facility] de Phone Number [facility] [address] [place] [address], [place] [phone] * Culture urine (06/20/2025 8:18 PM EDT) Only the most recent of2 resultswithin the time period is included. Pathologist [facility] Culture, Urine >100,000 CFU/mL Mixed bacterial morphotypes present suggestive of possible contamination during collection. Suggest appropriate recollection if clinically indicated. 06/21/2025 12:56 PM EDT [facility] Urine Urine specimen obtained by clean catch procedure / Unknown Non-blood Collection / Unknown 06/20/2025 8:18 PM EDT 06/20/2025 8:39 PM EDT Ronnie Sierra MD LAB MICROBIOLOGY - GENERAL ORDER ALEJANDRA Final Result Performing Organization Address City/[facility] Co de Phone Number [facility] [address] [place] [address], [place] [phone] * Culture blood (06/20/2025 7:50 PM EDT) Only the most recent of7 resultswithin the time period is included. Culture, Blood No growth at 5 days LAB MICROBIOLOGY METHOD 06/25/2025 9:01 PM EDT [facility] Blood Venous blood specimen / Unknown Venipuncture / Unknown 06/20/2025 7:50 PM EDT 06/20/2025 8:01 PM EDT Ronnie Sierra MD LAB MICROBIOLOGY - GENERAL ORDER ALEJANDRA Final Result Performing Organization Address [facility] de Phone Number [facility] [address] [place] [address], [place] [phone] * Lactate, with reflex (06/20/2025 7:39 PM EDT) Only the most recent of2 resultswithin the time period is included. LACTIC ACID 0.8 0.4 - 2.0 mmol/L LAB CHEMISTRY METHOD 06/20/2025 8:35 PM EDT [facility] Blood Venous blood specimen / Unknown Venipuncture / Unknown 06/20/2025 7:39 PM EDT 06/20/2025 8:01 PM EDT Ronnie Sierra MD LAB BLOOD ORDERABLES Final Resul t Performing Organization Address [facility] Co de Phone Number [facility] [address] [place] [address], [place] [phone] * [place] CRITICAL CARE 30-74 MINUTES (06/20/2025 6:57 PM [...] MD IN CLINIC/BEDSIDE ORDERABLES Fin al Result * Green LI heparin tube (06/16/2025 4:00 AM EDT) Only the most recent of2 resultswithin the time period is included. Extra Tube Hold for add-ons. 06/16/2025 6:01 AM EDT [facility] Comment:Auto resulted. Blood Venous blood specimen / Unknown Venipuncture / Unknown 06/16/2025 4:00 AM EDT 06/16/2025 4:21 AM EDT us Arsaeli Morton MD LAB BLOOD ORDERABLES Final Re sult [facility] [address] [place] [address], [place] [phone] * CT Chest wo Contrast (06/12/2025 5:34 PM EDT) Only the most recent of3 resultswithin the time period is included. Anatomical Region Laterality Modality Body Computed Tomogra phy 06/12/2025 5:57 PM EDT Impressions 06/12/2025 5:57 PM EDT Impression: 1. Similar-appearing near-complete atelectasis of the bilateral lower lobes and lesser right upper lobe atelectasis. No gross new consolidation. 2. Mildly increased right axillary adenopathy. Similar-appearing left axillary adenopathy. This document has been electronically signed by: Artis Nino MD on 06/12/2025 17:57:12 Narrative 06/12/2025 5:57 PM EDT INDICATION: Pneumonia, effusion or abscess suspected, xray done Exam: Nonenhanced CT chest with multiplanar reformats. Comparison: 05/27/2025. Findings: Lungs reveal fairly similar atelectasis involving posterior aspect of the right upper lobe and extensive atelectasis involving the right lower lobe, as well as similar near-complete atelectasis of the left lower lobe. No gross new consolidation. No pneumothorax. Tracheostomy tube is in stable appearing position. Similar-appearing left axillary adenopathy with nodes measuring up to 2 cm (3; 53). Right axillary adenopathy with nodes measuring up to 2.6 cm (3; 41) may be mildly increased since the prior exam. No clearly defined mediastinal or hilar masses or adenopathy although evaluation is limited by absence of intravenous contrast and a paucity of mediastinal fat. No pleural or pericardial effusions. Images below the diaphragms reveal no acute abnormalities. Osseous structures reveal no new destructive osseous lesions. Procedure Note Artis Nino MD - 06/12/2025 INDICATION: Pneumonia, effusion or abscess suspected, xray done Exam: Nonenhanced CT chest with multiplanar reformats. Comparison: 05/27/2025. Findings: Lungs reveal fairly similar atelectasis involving posterior aspect of the right upper lobe and extensive atelectasis involving the right lower lobe, as well as similar near-complete atelectasis of theleft lower lobe. No gross new consolidation. No pneumothorax. Tracheostomytube is in stable appearing position. Similar-appearing left axillary adenopathy with nodes measuring up to 2cm (3; 53). Right axillary adenopathy with nodes measuring up to 2.6 cm (3; 41) may be mildly increased since the prior exam. No clearly defined mediastinal or hilar masses or adenopathy although evaluation is limited by absence of intravenous contrast and a paucity of mediastinal fat. No pleural or pericardial effusions. Images below the diaphragms reveal no acute abnormalities. Osseous structures reveal no new destructive osseous lesions. IMPRESSION: Impression: 1. Similar-appearing near-complete atelectasis of the bilateral lower lobes and lesser right upper lobe atelectasis. No gross newconsolidation. 2. Mildly increased right axillary adenopathy. Similar-appearing left axillary adenopathy. This document has been electronically signed by: Artis Nino MD on 06/12/2025 17:57:12 us Jada Grissom MD IMG CT PROCEDURES Final Resul t * Acetylcholine receptor, blocking (06/05/2025 4:08 AM EDT) Acetylcholine Receptor Blocking Antibody <15 <15 % Inhibition 06/15/2025 10:35 AM EDT [facility] Comment: Test Performed at: [facility] [address] [phone] Markell Eid MD, PhD, VELAM Blood Venous blood specimen / Unknown Venipuncture / Unknown 06/05/2025 4:08 AM EDT 06/05/2025 4:30 AM EDT Parveen Warner DO LAB BLOOD ORDERABLES Final R esult [facility] [address] [place] [address] * Acetylcholine receptor, modulating (06/05/2025 4:08 AM EDT) Acetylcholine Receptor Modulating Antibody <1 % Inhibition 06/15/2025 10:35 AM EDT [facility] Comment: Reference Range: <32% INHIBITION This test was developed and its analytical performance characteristics have been determined by [employer]. It has not been cleared or approved by the FDA. This assay has been validated pursuant to the CLIA regulations and is used for clinical purposes. Test Performed at: [facility] [address] [place] [phone] Markell Eid MD, PhD, VELMA Blood Venous blood specimen / Unknown Venipuncture / Unknown 06/05/2025 4:08 AM EDT 06/05/2025 4:30 AM EDT Parveen [facility] BLOOD ORDERABLES Edited Result - Final Performing Organization Address [facility] de Phone Number [facility] [address] [place] [address] * (ABNORMAL) Acetylcholine receptor, binding (06/05/2025 4:08 AM EDT) [facility] Acetylcholine Receptor Binding Antibody 2.90(H) nmol/L 06/15/2025 10:35 AM EDT [facility] Comment: Reference Ranges for Acetylcholine Receptor Binding Antibody: Negative: < or =0.30 nmol/L Equivocal: 0.31-0.49 nmol/L Positive: > or =0.50 nmol/L Test Performed at: [facility] [address] [place] [phone] Markell Eid MD, PhD, VELMA Blood Venous blood specimen / Unknown Venipuncture / Unknown 06/05/2025 4:08 AM EDT 06/05/2025 4:30 AM EDT [facility]en [facility] BLOOD ORDERABLES Edited Result - Final Performing Organization Address [facility] de Phone Number [facility] [address] [place] [address] * Heparin induced platelet antibody (06/02/2025 10:16 AM EDT) [facility] Heparin Induced Platelet Antibody 0.331 <0.4 OD 06/06/2025 1:52 PM EDT [facility] Comment: Probability of positive serotonin release assay (JORJE) based on PF4 optical density. (OD)* PF4 OD Chance of JORJE Positive <0.400 <1% 0.400 - 1.000 3% 1.000 - 1.400 18% 1.500 - 2.000 50% >2.000 89% *Anisa et al: J Thromb Haemost 2008; 6: 0971-8365. Test performed at [facility], [address] , [place] [address] Luisana Villarreal MD, PhD - Access Coordinator Blood Venous blood specimen / Unknown Venipuncture / Unknown 06/02/2025 10:16 AM EDT 06/02/2025 10:28 AM EDT us Araseli Morton MD LAB BLOOD ORDERABLES Final Re sult [facility] [address] [place] [address] * (ABNORMAL) RBC morphology review (06/02/2025 4:05 AM EDT) Pathologist [facility] Rbc Morphology Consistent with indices Consistent with indices, Normal for [place] LAB HEMETOLOGY METHOD 06/02/2025 5:09 AM EDT [facility] Platelet Morphology - WAM See Note(A) Normal LAB HEMETOLOGY METHOD 06/02/2025 5:09 AM EDT [facility] Comment:PLT: Normal Blood Venous blood specimen / Unknown Venipuncture / Unknown 06/02/2025 4:05 AM EDT 06/02/2025 4:22 AM EDT us Araseli Morton MD LAB BLOOD ORDERABLES Final Re sult [facility] [address] [place] [address], * (ABNORMAL) Iron and TIBC (06/02/2025 4:05 AM EDT) Iron 14(L) 40 - 150 mcg/dL LAB CHEMISTRY METHOD 06/02/2025 8:15 AM EDT [facility] TIBC 139(L) 250 - 450 mcg/dL LAB CHEMISTRY METHOD 06/02/2025 8:15 AM EDT [facility] Iron Saturation 10(L) 15 - 50 % LAB CHEMISTRY METHOD 06/02/2025 8:15 AM EDT [facility] Blood Venous blood specimen / Unknown Venipuncture / Unknown 06/02/2025 4:05 AM EDT 06/02/2025 4:22 AM EDT us Araseli Morton MD LAB BLOOD ORDERABLES Final Re sult [facility] [address] [place] [address], [place] [phone] * Occult blood stool, guaiac (05/30/2025 1:55 PM EDT) Occult Blood, Stool #1 Negative Negative 05/30/2025 2:28 PM EDT [facility] Stool Rectum structure / Unknown Non-blood Collection / Unknown 05/30/2025 1:55 PM EDT 05/30/2025 2:15 PM EDT us Parveen Warner DO LAB BODY FLUIDS AND STOOLS O RDERABLES Final Result [facility] [address] [place] [address], [place] [phone] * (ABNORMAL) TRANSTHORACIC ECHOCARDIOGRAM (TTE) COMPLETE (05/30/2025 8:58 AM EDT) Aortic Sinus Valsalva 3.2 cm CV PACS Ascending Aorta 2.5 cm CV PACS IVSD 1.2(A) 0.6 - 0.9 cm CV PACS LVIDD 5.1 3.8 - 5.2 cm CV PACS LVIDS 3.2 2.2 - 3.5 cm CV PACS LVOT Diameter 2.2 cm CV PACS LVPWD 1.1(A) 0.6 - 0.9 cm CV PACS MV E' Tissue Velocity Lateral 22 cm/s CV PACS MV E' Tissue Velocity Septal 12 cm/s CV PACS GLS -15.7 % CV PACS GLS -20.1 % CV PACS GLS -15.3 % CV PACS GLS -17.0 % CV PACS LVOT Area 3.8 cm2 CV PACS E Wave Deceleration Time 130 119 - 242 ms CV PACS MV Peak A Rob 0.66 m/s CV PACS MV Peak E Rob 0.95 m/s CV PACS RV S' 12 cm/s CV PACS TAPSE 18 mm CV PACS TR Peak Velocity 2.61 m/s CV PACS TR Peak Gradient 27 mmHg CV PACS E/E' Ratio Septal 8 CV PACS E/E' Ratio Averaged 6 CV PACS Relative Wall Thickness ratio 0.43 CV PACS FS 37 % CV PACS LV Mass 2D 227 g CV PACS Ascending Aorta Index 1.23 cm/m2 CV PACS LVIDD Index 2.50 cm/m2 CV PACS LVIDS Index 1.57 cm/m2 CV PACS E/A Ratio 1.4 CV PACS E/E' Ratio Lateral 4 CV PACS LV Mass Index 2D 111 g/m2 CV PACS BSA 2.04 m2 CV PACS Right Ventricular Peak Systolic Pressure 35 mmHg CV PACS Est. RA Pressure 8 mmHg CV PACS Anatomical Region Laterality Modality Ultrasound Narrative 05/30/2025 9:18 AM EDT Left ventricle cavity size is normal. There is mild hypertrophy. Systolic function is normal with an ejection fraction of 55-60%. There are no regional LV wall motion abnormalities. There is no diastolic dysfunction. Right ventricle cavity is normal. Right ventricular systolic function is normal. Tricuspid Valve: Estimated RA pressure is 8 mmHg. The RVSP is estimated at 35 mmHg. The atria are normal in size. No hemodynamically significant valve disease. See remainder of the report for additional findings. Left Ventricle Left ventricle cavity size is normal. There is mild hypertrophy. Systolic function is normal with an ejection fraction of 55-60%. There are no regional LV wall motion abnormalities. There is no diastolic dysfunction. Right Ventricle Right ventricle cavity appears normal. Systolic function is normal. Left Atrium Left atrium cavity size is normal. Right Atrium Right atrium cavity is normal. IVC/SVC Inferior vena cava structure is normal. Mitral Valve The leaflets are mildly thickened. There is trace regurgitation. There is no evidence of mitral valve stenosis. Tricuspid Valve Tricuspid valve structure is normal. There is trace regurgitation. There is no evidence of tricuspid valve stenosis. Estimated RA pressure is 8 mmHg. The RVSP is estimated at 35 mmHg. Aortic Valve The aortic valve is trileaflet. There is no regurgitation or stenosis. Pulmonic Valve Visualized portions of the pulmonic valve appear normal. There is trace pulmonic valve regurgitation. There is no evidence of pulmonic valve stenosis. Ascending Aorta The aorta appears normal in size. Pericardium Pericardium appears normal. There is no pericardial effusion. Study Details Overall the study quality was adequate. Study was difficult due to: procedure performed with the patient in a supine position and mechanically ventilated. Parveen Warner DO CV ECHO PROCEDURES Final Res ult * Thyroid stimulating hormone with reflex to free t4 and free t3 (05/30/2025 4:10 AM EDT) TSH 1.55 0.40 - 4.00 mcIU/mL LAB CHEMISTRY METHOD 05/30/2025 5:56 AM EDT [facility] Blood Blood sample taken from central line / Unknown Venipuncture / Unknown 05/30/2025 4:10 AM EDT 05/30/2025 4:18 AM EDT Bette SUAREZ LAB BLOOD ORDERABLES Final Result [facility] [address] [place] [address], * Heparin and low molecular weight anti Xa level (05/30/2025 4:10 AM EDT) Only the most recent of4 resultswithin the time period is included. Heparin Anti-Xa 0.39 0.30 - 0.70 I Unit/mL LAB COAGULATION METHOD 05/30/2025 4:33 AM EDT [facility] Blood Blood sample taken from central line / Unknown Existing Catheter / Unknown 05/30/2025 4:10 AM EDT 05/30/2025 4:18 AM EDT [facility] - 05/30/2025 4:33 AM EDT Therapeutic range listed is for Unfractionated Heparin. LMW Heparin therapeutic range: 0.50-1.20 IU/mL Jada Grissom MD LAB BLOOD ORDERABLES Final Re sult Performing Organization Address [facility]/ZIP Co de Phone Number [facility] [address] [place] [address], * Cortisol (05/30/2025 2:27 AM EDT) Cortisol 6.4 mcg/dL LAB CHEMISTRY METHOD 05/30/2025 3:37 AM EDT [facility] Blood Venous blood specimen / Unknown 05/30/2025 2:27 AM EDT 05/30/2025 2:54 AM EDT Narrative [facility] - 05/30/2025 3:37 AM EDT CORTISOL REFERENCE RANGE 8 AM SPEC: 5.0-23.0 mcg/dL 4 PM SPEC: 3.0-16.0 mcg/dL 8 PM SPEC: <5.0 mcg/dL Bette SUAREZ LAB BLOOD ORDERABLES Final Result Performing Organization Address [facility]/ZIP Co de Phone Number [facility] [address] [place] [address], * (ABNORMAL) D-Dimer (05/29/2025 9:37 AM EDT) D-Dimer, Quant (D-DU) 1,059(H) <=230 ng/mL DDU LAB COAGULATION METHOD 05/29/2025 9:52 AM EDT [facility] Blood Venous blood specimen / Unknown Venipuncture / Unknown 05/29/2025 9:37 AM EDT 05/29/2025 9:40 AM EDT Narrative [facility] - 05/29/2025 9:52 AM EDT D-Dimer <230 ng/mL (D-Dimer units) is the threshold for exclusion of DVT/PE. D-Dimer may be elevated in: Critically ill, severely infected, trauma patients, DIC, acute CVA, acute AK, unstable angina, AF, old age, , and smoking. D-Dimer may be decreased with: Initiation of heparin therapy and oral anticoagulants. Parveen Warner DO LAB BLOOD ORDERABLES Final R esult Performing Organization Address [facility]/ZIP Co de Phone Number [facility] [address] [place] [address], [place] [phone] * Lipase (05/29/2025 4:40 AM EDT) Lipase 13 13 - 75 unit/L LAB CHEMISTRY METHOD 05/29/2025 8:17 AM EDT [facility] Blood Blood sample taken from central line / Unknown Existing Catheter / Unknown 05/29/2025 4:40 AM EDT 05/29/2025 5:03 AM EDT Parveen Warner DO LAB BLOOD ORDERABLES Final R esult [facility] [address] [place] [address], [place] [phone] * Ammonia (05/29/2025 4:40 AM EDT) Ammonia 33 11 - 35 mcmol/L LAB CHEMISTRY METHOD 05/29/2025 5:25 AM EDT [facility] Blood Blood sample taken from central line / Unknown Existing Catheter / Unknown 05/29/2025 4:40 AM EDT 05/29/2025 5:02 AM EDT Parveen Warner DO LAB BLOOD ORDERABLES Final R toniault Performing Organization Address [facility]/ZIP Co de Phone Number [facility] [address] [place] [address], [place] [phone] * Vancomycin, trough Please draw 1 hour before 05/28 07:00 dose. (05/28/2025 6:04 AM EDT) Vancomycin Trough 11.6 10.0 - 20.0 mcg/mL LAB CHEMISTRY METHOD 05/28/2025 7:07 AM EDT [facility] Blood Blood sample taken from central line / Unknown Existing Catheter / Unknown 05/28/2025 6:04 AM EDT 05/28/2025 6:12 AM EDT Jada Grissom MD LAB BLOOD ORDERABLES Final Re sult Performing Organization Address [facility]/ZIP Co de Phone Number [facility] [address] [place] [address], [place] [phone] * Insert PICC line (05/27/2025 12:45 PM EDT) Narrative Alysia Warner RN - 05/27/2025 12:45 PM EDT Alysia Warner RN 05/27/2025 1:24 PM PICC Line Insertion Procedure Note Procedure: Insertion of 4F Double lumen Bard Provena PowerPICC Lot: [id number] Exp: 2025-12-10 Indications: ICU level of care/Venous ABGs Procedure Details: Informed consent was obtained for the procedure. Risks of thrombus and infection were discussed. Pre-procedure checklist completed at bedside. Maximum sterile technique was used including antiseptics, cap, gloves, gown, hand hygiene, mask, and sheet. US guidance utilized, vein easily accessed and catheter advanced smoothly upon second attempt. Unsuccessful first attempt using basilic vein d/t inability to advance catheter past approximately 15 cm after easily accessing vein. Two wires intact and discarded. 1% Lidocaine 3 ml sc administered. 4F PICC inserted to the Right Brachial vein per hospital protocol. Flushes smoothly with good blood return. Findings: Catheter cut at 40 cm and inserted to 40 cm with 0 cm exposed. Mid upper arm circumference is 37 cm. There were no changes to vital signs. Catheter was flushed with 10 cc NS and sterile CVC dressing with Biopatch applied. Patient tolerated procedure well. Recommendations: 3CG confirmation obtained: Tip at cavoatrial junction/May use line PICC Brochure given to patient with teaching instruction. us Jada Grissom MD IV THERAPY ORDERABLES Final R esult * (ABNORMAL) Arterial blood gas (05/27/2025 7:43 AM EDT) pH, Arterial 7.40 7.35 - 7.45 pH 05/27/2025 7:59 AM [facility] pCO2, Arterial 69(HH) 35 - 45 mmHg 05/27/2025 7:59 AM [facility] pO2, Arterial 61(L) 80 - 100 mmHg 05/27/2025 7:59 AM [facility] HCO3, Arterial 36.9(H) 22.0 - 26.0 mmol/L 05/27/2025 7:59 AM [facility] O2 Sat, Arterial 94.5(L) 95.0 - 98.0 % 05/27/2025 7:59 AM [facility] Base Excess, Arterial 15.5(H) -2.0 - 2.0 mmol/L 05/27/2025 7:59 AM [facility] [place] Test 05/27/2025 7:59 AM [facility] Comment:right brachial FIO2 0.40 05/27/2025 7:59 AM [facility] Comment:cool aerosol Blood Arterial blood specimen / Unknown Arterial Puncture / Unknown 05/27/2025 7:43 AM EDT 05/27/2025 7:48 AM EDT us Jada Grissom MD LAB BLOOD ORDERABLES Final Re sult [facility] [address] [place] [address], [place] [phone] * Light blue tube (05/27/2025 4:55 AM EDT) [facility] Extra Tube Hold for add-ons. 05/27/2025 7:01 AM EDT [facility] Comment:Auto resulted. Blood Venous blood specimen / Unknown Venipuncture / Unknown 05/27/2025 4:55 AM EDT 05/27/2025 5:11 AM EDT Araseli Morton MD LAB BLOOD ORDERABLES Final Re sult Performing Organization Address City/[facility]/ZIP Co de Phone Number [facility] [address] [place] [address], [place] [phone] * [id number], RSV, Influenza A and B qualitative RT-PCR (05/26/2025 9:32 PM EDT) [facility] Influenza A PCR Not Detected Not Detected LAB MICROBIOLOGY METHOD 05/26/2025 10:31 PM EDT [facility] Influenza B PCR Not Detected Not Detected LAB MICROBIOLOGY METHOD 05/26/2025 10:31 PM EDT [facility] RSV PCR Not Detected Not Detected LAB MICROBIOLOGY METHOD 05/26/2025 10:31 PM EDT [facility] SARS COV-2 Not Detected Not Detected LAB MICROBIOLOGY METHOD 05/26/2025 10:31 PM EDT [facility] Swab Both anterior nares / Unknown Non-blood Collection / Unknown 05/26/2025 9:32 PM EDT 05/26/2025 9:43 PM EDT [facility] - 05/26/2025 10:31 PM EDT Disclaimer: Testing was performed using the [employer] GeneXpert Xpress SARS-CoV-2 _Flu_RSV PLUS PCR assay. The manner in which this information is used to guide patient care is the responsibility of the healthcare provider. Results should be correlated with the clinical history, epidemiological data, and other data available to the clinician evaluating the patient. Negative results do not preclude infection. This test has been authorized by the FDA under an Emergency Use Authorization (EUA). This test is only authorized for the duration of time the declaration that circumstances exist justifying the authorization of the emergency use of in vitro diagnostic tests for detection of SARS-CoV-2 virus and/or diagnosis of COVID-19 infection under section 564 (b) (1) of the Act, 21 U.S.C 360bbb-3 (b) (1), unless the authorization is terminated or revoked sooner. Reference Range: Not Detected Fact sheet for Healthcare providers can be found at https://www.fda.gov/media/002100/download. Fact sheet for Healthcare patients can be found at https://www.fda.gov/media/542691/download. us John Streeter MD LAB MICROBIOLOGY - GENERAL O RDERABLES Final Result [facility] ([facility] [address] [place] [address], * [place] CRITICAL [place] 30-74 MINUTES (05/26/2025 8:21 PM EDT) John Jain MD - 05/26/2025 8:21 PM EDT ERICK Jean 05/27/2025 12:10 AM Critical Care Performed by: ERICK Jean Authorized by: John Streeter MD Critical care provider statement: Critical care time (minutes): 40 Total face to face critical care time (minutes): 15 Critical care was necessary to treat or prevent imminent or life-threatening deterioration of the following conditions: Renal failure, respiratory failure, sepsis, shock, metabolic crisis, hepatic failure, endocrine crisis, circulatory failure and cardiac failure Critical care was time spent personally by me on the following activities: Discussions with consultants, pulse oximetry, ordering and review of radiographic studies, ordering and review of laboratory studies, ordering and performing treatments and interventions, development of treatment plan with patient or surrogate, evaluation of patient's response to treatment, examination of patient, interpretation of cardiac output measurements and obtaining history from patient or surrogate Face to face critical care was time spent personally by me on the following activities: Discussions with consultants, evaluation of patient's response to treatment, examination of patient, review of old charts, pulse oximetry and re-evaluation of patient's condition I assumed direction of critical care for this patient from another provider in my specialty: no Care discussed with: admitting provider us John Streeter MD IN CLINIC/BEDSIDE ORDERABLES Final Result * IR Replace Duod/J-Tube Perc w Fluoro (05/19/2025 10:01 AM EDT) Anatomical Region Laterality Modality N/A Interventional R adiology 05/19/2025 10:4 4 AM EDT Impressions 05/19/2025 10:47 AM EDT 16-Sammarinese jejunostomy tube exchange. The catheter is available for use. -------- FINAL REPORT -------- Dictated By: Eugenio Sandhu Dictated Date: 05/19/2025 10:44 ET Assigned Physician: Eugenio Sandhu Reviewed and Electronically Signed By: Eugenio Sandhu Signed Date: 05/19/2025 10:47 ET Workstation ID: [id number] Transcribed By: Self Edit Transcribed Date: 05/19/2025 [...] Procedure: Informed consent was obtained with a metal bonding crib attendant via the healthcare proxy. Patient was placed supine on the imaging table. The left midabdomen and catheter were prepped and draped in the usual sterile fashion. Injection of contrast through the pre-existing 16-Sammarinese jejunostomy tube demonstrates appropriate opacification of left [...] Procedure: Informed consent was obtained with a metal bonding crib attendant [facility]. Patient was placed supine on the imaging table. The left midabdomen andcatheter were prepped and draped in the usual sterile fashion. Injectionof contrast through the pre-existing 16-Sammarinese jejunostomy tubedemonstrates appropriate opacification of left mid [...] complications. The patient tolerated theprocedure well. IMPRESSION: 16-Sammarinese jejunostomy tube exchange. The catheter is available for use. -------- FINAL REPORT -------- Dictated By: Eugenio Sandhu Dictated Date: 05/19/2025 10:44 ET Assigned Physician: Eugenio Sandhu Reviewed and Electronically Signed By: Eugenio Sandhu Signed Date: 05/19/2025 10:47 ET Workstation ID: [id number] Transcribed By: Self Edit Transcribed Date: 05/19/2025 10:44 ET us Tj Nino DO IMG IR PROCEDURES Final Result from Last 3 Months Insurance [facility] MEDICARE Member Subscriber Plan / Payer (Ef fective 2014-Present) Name:MARGARITA HILL Relation to Subscriber:Self Name:Margarita Hollis Payer ID:[id number] Group ID:[id number] Type:Not on file Address: [place] [address] [address] [id number] Advance Directives Documents on File Type Date Recorded Patient Database Developer Expl anation Health Care Decision (hx) 12/13/2023 ADVANCE DIRECTIVE Health Care Decision (hx) 12/13/2023 ADVANCE DIRECTIVE Health Care Decision (hx) 12/13/2023 ADVANCE DIRECTIVE Health Care Decision (hx) 12/13/2023 ADVANCE DIRECTIVE Health Care Decision (hx) 12/13/2023 ADVANCE DIRECTIVE Health Care Decision (hx) 12/13/2023 ADVANCE DIRECTIVE Health Care Decision (hx) 12/13/2023 ADVANCE DIRECTIVE Health Care Decision (hx) 12/13/2023 ADVANCE DIRECTIVE Health Care Decision (hx) 12/13/2023 ADVANCE DIRECTIVE Health Care Decision (hx) 12/13/2023 ADVANCE DIRECTIVE Health Care Decision (hx) 12/13/2023 ADVANCE DIRECTIVE Health Care Decision (hx) 12/13/2023 ADVANCE DIRECTIVE Health Care Decision (hx) 12/13/2023 Mandie Hollis ADVANCE DIRECTIVE * Full Code - Confirmed (Latest Code Status on File) Date Activated Date Inactivated Comments 06/20/2025 9:32 PM 07/01/2025 8:[address] [facility] was ascertained in the following way: Code status discussion: discussion with patient To update the patient's code status, place a code status order. Do not modify or discontinue any currently active code status orders. * Full Code - Default Date Activated Date Inactivated Comments 05/27/2025 2:02 AM 06/16/2025 5:40 PM This is order is used when code status has not been discussed with the patient, or code status is otherwise unknown/unconfirmed To update the patient's code status, place a code status order. Do not modify or discontinue any currently active code status orders. * Full Code - Default Date Activated Date Inactivated Comments 10/13/2024 9:19 [...] details and original code status order details. Healthcare Agents on File Name Relationship Healthcare Agent Relationshi p Communication Margarita Hollis Mother First [facility] Agent Mandie Hollis Sister Second Vannessa martin Health Care Agent Care Teams Geospatial Technologist Relationship Specialty Start Date End Date Alethea Marsh NP [address] [place] [address] PCP - General Internal Medicine 05/26/25
--- OUTSIDE RECORDS SUMMARY | 2025-07-04 15:21 | XMS_ITS | Continuity of Care Document ---
Author Name [facility], Medical Address [address] [place] [id number] Organization Unknown Address [address] [place] [address] Medications No known medications Problems No known problems
--- OUTSIDE RECORDS SUMMARY | 2025-07-04 15:21 | XMS_ITS | Continuity of Care Document ---
Author Name Shay Walden Address [address] [place] [id number] Organization Unknown Address [address] [place] [address] Medications No known medications Problems No known problems
--- NOTE | 2025-07-06 11:16 | MHC.SL.IMP ---
Date of Plan of Treatment: 07/04/25 Onset of Symptoms/Illness: 05/23/25 Date Treatment Started: 07/04/25 Admitting Diagnosis: Tracheostomy Primary Speech & Language Diagnosis: R13.12 Oropharyngeal Phase Dysphagia Reason for Today's Visit: 54618 Modified Barium Swallow Study Pre-evaluation Dietary Consistencies: NPO Pre-evaluation Liquid Consistency: NPO Pre-evaluation Medication Administration: NPO Medical History: Modified Barium Swallow Study Fluoroscopic Evaluation of Swallowing Function CPT Code 32554 Evaluation Year: 2024 Reason for Study: Hx tracheostomy w/ tube feeds via PEG Referring Physician: Avni Hollis MD Evaluating Clinician: Qian Allen MA, CCC-PROJECT MANAGEMENT PROFESSOR Study Number: 1 Patient Name: Sandrita Hollis Status: Outpatient, Stretcher Age: 30 Sex: Female Medical History Medical History (Updated 03/28/24 @ 23:07 by Avni Hollis MD) Rheumatoid arthritis 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 Patient is followed by the Pulmonology office with history of tracheostomy and respiratory failure. Patient?s trach, which is cuffed, was downsized at her last pulmonary appointment on 05/20/2025. Per Dr. Hollis, patient tolerated the downsizing of her trach to the 7.5 mm in her diameter tracheostomy and then was further downsized to a 6.5 mm inner diameter tracheostomy, [id number]. Patient noted to have increased secretions and was treated for tracheitis with doxycycline last month. Patient attended today?s exam accompanied by her primary caregiver, with whom she lives. Patient has a hospital bed and reclining chair at home, and uses a wheelchair. Today she arrived on a stretcher, transported from home by [facility]. The medical Arabic-speaking urban and regional planner was present to assist with translation. Patient?s caregiver reports that patient was previously eating purees, but then ?stopped? and had ?ice chips only? after a stay in the ICU, though the timeline of these changes was unclear. Patient initially reported she feeds patient ?milk only,? then with further discussion, it was clarified that this ?milk? is actually a formula patient is getting by tube feeds through the PEG, and patient is not getting any oral intake at this time. Patient?s cuff was deflated during this exam and she did appear to have her speaking valve in place. Per Dr. Hollis, patient reportedly has had a hard time using the [place] valve, but seemed to tolerate it better after downsizing and will continue to ?work on it.? Oral Motor Exam Facial Symmetry: Symmetrical Mouth Occlusion: Normal Oral-Facial Teeth Characteristics: Intact/Normal Tongue Size: Normal Food and Liquid Trials: Oral Impairment: Lip Closure: 1=Interlabial escape; no progression to anterior tip Oral Impairment: Tongue Control During Bolus Hold: 0=Cohesive bolus between tongue to palatal seal Oral Impairment: Bolus Preparation/Mastication: 2=Disorganized chewing/mashing with solid pieces of bolus Oral Impairment: Bolus Transport/Lingual Motion: 1= Delayed initiation of tongue motion Oral Impairment: Oral Residue: 2=Residue collection on oral structures Oral Impairment:Initiation of Pharyngeal Swallow: 3=Bolus head in pyriforms Pharyngeal Impairment: Soft Palate Elevation: 0=No bolus between soft palate (SP)/pharyngeal wall (PW) Pharyngeal Impairment: Laryngeal Elevation: 2=Minimal superior movement of thyroid cartilage (see description) Pharyngeal Impairment: Anterior Hyoid Excursion: 1=Partial anterior movement Pharyngeal Impairment: Epiglottic Movement: 1=Partial inversion Pharyngeal Impairment: Laryngeal Vestibular Closure:: 1=Incomplete: narrow column air/contrast in laryngeal vestibule Pharyngeal Impairment: Pharyngeal Stripping Wave: 0=Present: complete Pharyngeal Impairment: Pharyngeal Contraction: Did not test Pharyngeal Impairment: Pharyngoesophageal Segment Openin=Complete distension and complete duration: no obstruction of flow Pharyngeal Impairment: Tongue Base (TB) Retraction: 2=Narrow column of contrast/air between TB and posterior PW Pharyngeal Impairment: Pharyngeal Residue: 2=Collection of residue within or on pharyngeal structures Pharyngeal Impairment: Esophageal Clearance Upright Position: Did not test Impressions and Recommendations OBJECTIVE: Time-out: performed at 14:45 Evaluation Start: 14:30; Stop: 14:35 Tracheostomy tube present Oxygen: Trach collar Patient Positioning: Seated 70-90 degrees Viewing Planes: LATERAL ONLY Contrast: MBSImP? Standardized Protocol using commercially prepared, standardized Barium viscosities, including: Varibar? THIN LIQUID (40% w/v, <15 cps) , Varibar? PUDDING (40% w/v, <4252-5157 cps) , 1/2 Shortbread Cookie (1 x1 x.25 ) [facility] ID: [id number] [facility] Results: Lip closure for intraoral bolus containment resulted in interlabial escape, without progression to the anterior lip. Tongue control during bolus hold maintained a cohesive bolus held between tongue to palate seal. Bolus preparation and mastication demonstrated disorganized chewing/mashing with solid pieces of the bolus unchewed. Bolus transport/lingual motion demonstrated delayed initiation of tongue motion. Oral residue was a collection on oral structures. Initiation of the pharyngeal swallow occurred when the bolus head was in the pyriform sinuses. Soft palate elevation resulted in no bolus between the soft palate and the pharyngeal wall. Laryngeal elevation was incomplete, as indicated through minimal superior movement of the thyroid cartilage with minimal approximation of the arytenoids to the epiglottic petiole. Anterior hyoid excursion demonstrated partial anterior movement. Epiglottic movement resulted in partial inversion. Laryngeal vestibular closure was incomplete, with a narrow column of air/contrast noted within the laryngeal vestibule at the height of the swallow. Pharyngeal stripping wave was present and complete. Pharyngeal contraction could not be determined due to logistical reasons not related to physiologic impairment. Pharyngoesophageal segment opening was completely distended for complete duration with no obstruction of bolus flow. Tongue base retraction allowed a narrow column of contrast or air between the retracted tongue base and the posterior pharyngeal wall. Pharyngeal residue was a collection of residue within or on pharyngeal structures. Esophageal clearance in the upright position could not be assessed due to logistical reasons not related to physiologic impairment. Oral Impairment Score: 8 Pharyngeal Impairment Score: 9 (absence of score, component 13) Esophageal Impairment Score: --- (absence of score, component 17) Laryngeal Penetration and Aspiration: Neither penetration nor aspiration was observed in today's study with Cookie, Pudding-thick, Thin. ASSESSMENT: This exam was conducted by the radiologist and the speech pathologist. Patient was seated upright in a stretcher for lateral view only. She required 1:1 assistance feeding and trialed the following consistencies: -Thin liquid (via teaspoon & individual straw sips) -Puree (mixture applesauce w/ barium pudding) -Regular (shortbread cookie coated w/ barium pudding) There was trace liquid escaping in the interlabial space. Good tongue control with no premature posterior spillage from the oral cavity. Mastication was slowed and prolonged. Patient displayed vertical chewing pattern and at times used her tongue to mash bolus on the roof of the mouth. Posterior lingual motion was delayed. There was trace lingual residue with trials of liquids. Increased residue, but still minimal, seen on the tongue with trials of puree and regular solid. Patient swallowed 1-2 times to clear the oral cavity. Pharyngeal swallow trigger was delayed, initiated as the bolus head reached the pyriforms. No evidence of nasopharyngeal reflux. Minimal laryngeal elevation, with partial epiglottic inversion and incomplete laryngeal vestibular closure, at times with narrow column of air seen in the laryngeal vestibule. There was, however, no evidence of aspiration or penetration during this exam. Trace pooling seen in the valleculae and pyriforms on trials of liquids, increased, but still minimal with solid consistencies. Pharygneal residue was cleared with 1-2 dry swallows. The following compensatory strategies have not been used until today's study, but when employed, improved swallowing function: Additional Swallow(s) per Bolus eliminated Oral Residue, Pharyngeal Residue Liquid Intake Recommendation: Thin Liquid Intake Strategies: Small Sips, Double Swallow Dietary Recommendations: Pureed (NDD1) Medication Administration: Crushed with Puree Please contact the pharmacy regarding appropriate crushable or liquid drug formulations that are available whenever modified delivery is recommended. Compensatory Strategies Recommended: Sitting Upright (90 deg), Double Swallow, Small Bites and Sips, Alternate Liquids/Solids, Rate of Ingestion Change Supervision during eating and or drinking: Direct Supervision (1:1) Recommended Treatments: Compens. Strategy Educat. Recommendation for Speech Therapy: Speech Therapy through [facility] Text Comment: Intake Recommendations: Route: Partial PO/Partial Alternate Diet Grade: Puree Liquid Consistencies: Thin Post-Study Functional Oral Intake Scale (FOIS): 3- Tube supplements with consistent oral intake Patient is a 30 year old female with underlying myasthenia gravis. Patient is followed by Pulmonology for respiratory failure, and has a tracheostomy and PEG tube for nutrition/hydration. Patient was sent for MBSS to determine if she can begin any oral intake. Based on observations made during this exam, she presents with mild oropharyngeal dysphagia, characterized by slowed and disorganized mastication pattern with use of tongue force to break up solids, delayed AP transport, delayed pharyngeal swallow trigger, and minimal laryngeal elevation. There was minimal residue seen on the tongue, in the valleculae, and in the pyriforms, which effectively cleared with cued dry swallows. Patient tolerated pureed and thin consistencies well, with mildly slowed oral phase, but overall good clearance and adequate airway protection. Minimal trials of regular solids were attempted during this exam, as patient refused additional intake. She did take a bite of chicken salad as encouraged by her physical fitness trainer, but, after chewing for several minutes, she spit this consistency out. Patient?s physical fitness trainer reported that patient has increased anxiety around eating and her fear of choking. Patient also appeared to fatigue as the trials progressed, and answered in the affirmative when asked by her physical fitness trainer if she was getting tired. Recommend patient START on PUREED (NDD1) solids and THIN liquids, as a supplement to her tube feeds. Patient does appear to quickly fatigue with feeding at this time, however, there is potential to increase PO intake as patient?s endurance improves. Recommend speech therapy through the [facility] to trial a conservative modified diet, provide education to the patient and her physical fitness trainer(s) in regards to swallow physiology and MBSS findings, and to train compensatory strategies which are recommended to maximize safety: -take small bites -ensure oral cavity is clear before taking more bites -dry swallow after each bite to promote clearance -liquids by teaspoon or straw -small individual sips (pinch straw as needed to control for small bolus size), NO sequential sipping -ensure upright 90 degree position during PO intake and for at least 30 minutes afterwards -maintain frequent oral care routine Suggested Referrals: The patient might benefit from a referral to: Respiratory Therapy/Speech Therapy Indication for Referral: PMV assessment/trials Nutrition Services Indication for Referral: Determine if PEG tube removal is appropriate if/once patient is able to maintain adequate nutrition/hydration orally Therapy Recommendations: Speech therapy is recommended for dysphagia treatment 1x weekly x 8-10 weeks The following compensatory strategies and/or therapeutic exercises will be part of the upcoming therapy/management plan: Additional Swallow(s) per Bolus Detention Goals: ? The patient will tolerate the least restrictive diet with a safe/efficient swallow to maintain adequate nutrition and hydration. ? The patient and/or family will participate in further education for swallowing goals. Short Term Goals: ? Diet - The patient will tolerate a pureed diet with thin liquids without signs or symptoms of penetration/aspiration 100% of the time. - The patient will participate in therapeutic PO trials with the PROJECT MANAGEMENT PROFESSOR. ? Guidelines - The patient will comply with/recall the following guidelines/strategies 100% of the time with minimal cuing: Bolus Volume Change, Rate of Ingestion Change, Additional Swallow(s) per Bolus. ? Education - The patient, family, caregiver will verbalize/demonstrate understanding of the results of this evaluation, the above recommendations, and the swallowing guidelines. Frequency/Duration: 1x weekly x 8-10 weeks Date Range for Service Requested: Timeline to reassess: PRN Clinician - Supplemental, Miscellaneous Communication: It is important to note MBSS objective studies are snapshots in time and Patient function might vary with factors such as time of day or concomitant medical conditions. For this reason, the final treatment plan for this patient should rest with their medical care team. Additional recommendations should be considered with the totality of the Patient in mind. Thank for the opportunity to participate in the care of this patient. If you have any questions about the content of this report, please contact the [facility] at [facility]. Education: Education regarding findings from today's study and plans for therapy were provided to Patient and family/caregiver through Verbal Instruction. Understanding was expressed by the Patient and family/caregiver. Dispatcher Clerk Clinician/Clinical Fellow: No Supervisory Statement: N/A Speech Language Pathologist: Qian Allen M.A., [facility]-PROJECT MANAGEMENT PROFESSOR
== END 2025-07-04 13:59 | disposition home or self-care (01) ==
LOC: HO.XRAY 13:58
PROVIDERS: PCP Nurse Practitioner Family; Visit Provider Hospitalist
DX: R13.10 Dysphagia, unspecified (principal); R93.0 Abnormal findings on diagnostic imaging of skull and head, not elsewhere classified
CPT/HCPCS: 74230; 92611

== ENCOUNTER → 2025-07-04 14:00 | Outpatient (BNV) | payer OTHER, SELFPAY | PROVIDERS: PCP Nurse Practitioner Family; Visit Provider Radiology Diagnostic Radiology | DX: R13.10 Dysphagia, unspecified (principal) | CPT/HCPCS: 74230 ==

== ENCOUNTER 2025-07-19 09:11 | Outpatient (REF) | payer OTHER, SELFPAY ==
--- OUTSIDE RECORDS SUMMARY | 2025-07-18 11:41 | XMS_ITS | Encounter Summary ---
Author Organization [facility] Address [address] [place] [address] Care Team Providers Care Die Assembler Name Role Phone Alethea Marsh NP Primary Care Provider Reason for Referral * Imaging (Routine) - Pending Review Specialty Diagnoses / Procedures Referred By Contac t Referred To Contact Radiology Diagnoses Myasthenia gravis (CMS/HCC V24, CMS/HCC V28) Procedures IR Replace Duod/J-Tube Perc w Tj Sol DO [address] [place] [address] Phone: tel: fax: [address] [address] Phone: tel: Referral ID Status Reason Start Date Expiration Date V isits Requested Visits Authorized [id number] Pending Review 07/12/2025 07/12/2026 1 1 Reason for Visit * Imaging (Routine) - Pending Review Specialty Diagnoses / Procedures Referred By Contac t Referred To Contact Radiology Diagnoses Myasthenia gravis (CMS/HCC V24, CMS/HCC V28) Procedures IR Replace Duod/J-Tube Perc w Tj Sol DO [address] [place] [address] Phone: tel: fax: [address] [phone] Phone: tel: Referral ID Status Reason Start Date Expiration Date V isits Requested Visits Authorized [id number] Pending Review 07/12/2025 07/12/2026 1 1 Encounter Details Date Type Department Care Team (Latest Contact Info) Description 07/18/2025 11:41 AM EDT - 07/18/2025 11:59 PM EDT Hospital Encounter Interventional Radiology [address] [place] [address] Myasthenia gravis (CMS/HCC V24, CMS/HCC V28) Discharge Disposition: Home or Self Care Social History Tobacco Use Types Packs/Day Years Used Date Smoking Tobacco: Former Cigarettes Q uit: 2014 Smokeless Tobacco: Never Alcohol Use Standard Drinks/Week [...] care for your loved ones. For example, child and family counselor or elderly care for an older adult? [...] 5:36 PM EST Sexual Orientation Straight 10/13/2024 5 :36 PM EST documented as of this encounter Last Filed Vital Signs Vital Sign Reading Time Taken Comments Blood Pressure 105/63 07/18/2025 2:15 PM EDT Pulse 101 07/18/2025 2:15 PM EDT Temperature 36.4 C (97.6 F) 07/18/2025 11:51 AM EDT Respiratory Rate 18 07/18/2025 1:35 PM EDT Oxygen Saturation 99% 07/18/2025 2:15 PM EDT Inhaled Oxygen Concentration - - Weight 77.1 kg (170 lb) 07/18/2025 11:51 AM EDT Height - - Body Mass Index 28.29 06/22/2025 8:02 AM EDT documented in this encounter Functional [...] of Assessment Author Yes 06/20/2025 7:45 PM EDBette Grijalva RN * Do you have serious difficulty dressing or bathing? Answer Date of Assessment Author Yes 06/20/2025 7:45 PM EDT Bette Miramontes RN * Because of a physical, mental, or emotional condition, do you have serious difficulty doing errandsalone such as visiting the doctor? Answer Date of Assessment Author Yes 06/20/2025 7:45 PM Bette Barrett RN documented as of this encounter Mental Status * Because of a physical, mental, or emotional condition, do you have serious difficulty concentrating, remembering, or making decisions? (5 years old or older) Answer Entry Date Author Yes 06/20/2025 7:45 PM Bette Barrett RN documented in this encounter Medications at Time of Discharge acetaminophen (TYLENOL) 500 mg tablet Take 2 tablets (1,000 mg total) by mouth every 8 (eight) hours if needed for moderate pain. albuterol 2.5 mg /3 mL (0.083 %) nebulizer solution Take 3 mL (2.5 mg total) by nebulization every 2 (two) hours if needed for wheezing. ammonium lactate (LAC-HYDRIN) 12 % lotion Apply topically 1 (one) time each day. 400 g 06/17/2025 6 busPIRone (BUSPAR) 10 mg tablet Take 1 tablet (10 mg total) by mouth 3 (three) times a day. 90 each 07/01/2025 6 calcium carbonate-vitami n D 500 mg-5 mcg (200 unit) per tablet Take 2 tablets by mouth 2 (two) times a day. 120 each 06/16/2025 6 enoxaparin (LOVENOX) 40 mg/0.4 mL syringe Inject [...] (two) times a day. 300 mL 11 06/16/2025 folic acid (FOLVITE) 1 mg tablet [...] times a day. 90 tablet 2 06/16/2025 metoprolol succinate (TOPROL-XL) 25 mg 24 hr tablet Take 0.5 tablets (12.5 mg total) by mouth every 8 (eight) hours. Do not crush or chew. pyRIDostigmine (MESTINON) 60 mg tablet Take 0.5 tablets (30 mg total) by mouth 4 (four) times a day. traMADoL 25 mg tabletIndication s:pain Take 50 mg by mouth every 4 (four) hours. Max Daily Amount: 300 mg traZODone (DESYREL) 50 mg tablet Take 2 tablets (100 mg total) by mouth at bedtime. documented as of this encounter Discharge Disposition Disposition Code Departure Means Destination Home or Self Care documented in this encounter Procedure Notes * Ji Ryan RN - 07/18/2025 1:55 PM EDT Pt returns from IR alert/oriented to baseline, abd dressing clean dry intact. documented in this encounter Plan of Treatment Not on file documented as of this encounter Procedures Procedure Name Priority Date/Time Associated Diagnosis Comments IR REPLACE DUOD/J-TUBE PERC W FLUORO Routine 07/18/2025 1:33 PM EDT Myasthenia gravis ([facility] V24, CMS/[facility] V28) documented in this encounter Results * IR Replace Duod/J-Tube Perc w Fluoro (07/18/2025 1:33 PM EDT) Anatomical Region Laterality Modality N/A Interventional R adiology 07/18/2025 4:12 PM EDT Impressions 07/18/2025 4:42 PM EDT 16-Niuean jejunostomy tube exchange as described above. The catheter is available for immediate use. -------- FINAL REPORT -------- Dictated By: Beth Akers Dictated Date: 07/18/2025 16:12 ET Assigned Physician: Nickolas Wong Reviewed and Electronically Signed By: Nickolas Wong Signed Date: 07/18/2025 16:42 ET Workstation ID: [id number] Transcribed By: Self Edit Transcribed Date: 07/18/2025 16:26 ET Resident/PA/INSPECTOR GOVERNMENT PROPERTY: Beth Akers Narrative 07/18/2025 4:42 PM EDT Jejunostomy tube exchange INDICATION: Leaking around site, chronic j tube. Informed consent was obtained with a official court interpreter via the healthcare proxy. Moderate intravenous sedation was initiated and maintained for approximately 20 minutes while the patient was independently monitored by the radiology nurse under the supervision of the interventional radiologist. A total of 1.5 mg of Versed and 75 mcg of fentanyl administered during the procedure. Patient was placed supine on the imaging table. The left midabdomen and catheter were prepped and draped in the usual sterile fashion. Injection of contrast through the pre-existing 16-Niuean jejunostomy tube demonstrated good positioning. Evaluation of existing j-tube site demonstrated poor seal between existing balloon and anterior abdomen, indicating upsize not necessary at this time. The balloon was deflated. .035 short Amplatz wire was advanced through the existing j tube into the bowel and pre-existing jejunostomy tube was removed over the wire. A new cut to length jejunostomy tube was then advanced over the wire and positioned in the same location. The balloon was inflated with 10 mL of bacteriostatic water and a good seal to anterior abdomen was made before positioning retention disk to skin. Contrast injection post placement confirmed appropriate positioning. There were no immediate complications. The patient tolerated the procedure well. Air kerma: 3mGy Procedure Note Nickolas Wong MD - 07/18/2025 Jejunostomy tube exchange INDICATION: Leaking around site, chronic j tube. Informed consent was obtained with a official court interpreter [facility]. Moderate intravenous sedation was initiated and maintained forapproximately 20 minutes while the patient was independently monitored bythe radiology nurse under the supervision of the interventionalradiologist. A total of 1.5 mg of Versed and 75 mcg of fentanyladministered during the procedure. Patient was placed supine on the imaging table. The left midabdomen andcatheter were prepped and draped in the usual sterile fashion. Injectionof contrast through the pre-existing 16-Niuean jejunostomy tubedemonstrated good positioning. Evaluation of existing j-tube sitedemonstrated poor seal between existing balloon and anterior abdomen,indicating upsize not necessary at this time. The balloon was deflated..035 short Amplatz wire was advanced through the existing j tube into thebowel and pre-existing jejunostomy tube was removed over the wire. A newcut to length jejunostomy tube was then advanced over the wire andpositioned in the same location. The balloon was inflated with 10 mL ofbacteriostatic water and a good seal to anterior abdomen was made beforepositioning retention disk to skin. Contrast injection post placementconfirmed appropriate positioning. There were no immediate complications. The patient tolerated theprocedure well. Air kerma: 3mGy IMPRESSION: 16-Niuean jejunostomy tube exchange as described above. The catheter isavailable for immediate use. -------- FINAL REPORT -------- Dictated By: Beth Akers Dictated Date: 07/18/2025 16:12 ET Assigned Physician: Nickolas Wong Reviewed and Electronically Signed By: Nickolas Wong Signed Date: 07/18/2025 16:42 ET Workstation ID: [id number] Transcribed By: Self Edit Transcribed Date: 07/18/2025 16:26 ET Resident/PA/INSPECTOR GOVERNMENT PROPERTY: Beth Akers us Tj Nino DO IMG IR PROCEDURES Final Result documented in this encounter Visit Diagnoses Diagnosis Myasthenia gravis (CMS/[facility] V24, CMS/[facility] V28) Myasthenia gravis without exacerbation documented in this encounter Administered Medications Inactive Administered Medications - up to 3 most recent administrations Medication Order MAR Action Action Date Dose Rate Site fentaNYL (PF) (SUBLIMAZE) injection intravenous, As needed, Starting on Fri07/18/25 at 1320, Intraprocedure Given 07/18/2025 1:20 PM EDT 25 mcg fentaNYL (PF) (SUBLIMAZE) injection intravenous, As needed, Starting on Fri07/18/25 at 1326, Intraprocedure Given 07/18/2025 1:26 PM EDT 25 mcg fentaNYL (PF) (SUBLIMAZE) injection intravenous, As needed, Starting on Fri07/18/25 at 1330, Intraprocedure Given 07/18/2025 1:30 PM EDT 25 mcg midazolam (VERSED) injection intravenous, As needed, Starting on Fri07/18/25 at 1320, Intraprocedure Given 07/18/2025 1:20 PM EDT 0.5 mg midazolam (VERSED) injection intravenous, As needed, Starting on Fri07/18/25 at 1326, Intraprocedure Given 07/18/2025 1:26 PM EDT 0.5 mg midazolam (VERSED) injection intravenous, As needed, Starting on Fri07/18/25 at 1329, Intraprocedure Given 07/18/2025 1:29 PM EDT 0.5 mg documented in this encounter Discontinued Medications Medication Sig Discontinue Reason Start Date End Da te docusate (COLACE) 50 mg/5 mL liquid Take 20 mL (200 mg total) by mouth 1 (one) time each day. 07/18/2025 melatonin 3 mg tablet Take 1 tablet (3 mg total) by mouth at bedtime as needed for sleep. 07/18/2025 metoprolol tartrate (LOPRESSOR) 25 mg tablet Take 0.5 tablets (12.5 mg total) by mouth every 8 (eight) hours. 06/30/2025 07/18/2025 documented as of this encounter Orders Discharge Count Last Ordered Date First Orde red Date DISCHARGE PATIENT 1 07/18/2025 documented in this encounter Care Teams Die Assembler Relationship Specialty Start Date End Date Alethea Marsh NP [address] [place] [address] PCP - General Internal Medicine 05/26/25 documented as of this encounter
[2025-07-19 09:42] LABS: MANUAL DIFF FLAG NO
[2025-07-19 09:54] LABS: Hematocrit 34.8 % (37.0-47.0); Hemoglobin 9.1 g/dl (12.0-16.0); Imm Gran Abs Auto 0.01 X10*3/uL (0.00-0.03); Imm Gran Pct Auto 0.2 % (0.0-0.4); Lymphocytes Absolute Auto 0.7 X10*3/uL (1.2-4.9); Mean Corpuscular HGB Conc 26.1 g/dl (31.0-35.0); Mean Corpuscular Hemoglobin 20.6 pg (27.0-33.0); Mean Corpuscular Volume 78.7 fL (80.0-98.0); NRBC Abs Auto 0.000 X10*3/uL (0.0-0.012); NRBC Pct Auto 0.0 /100WBC (0.0-0.2); Platelet Count 432 X10*3/uL (160-400); Red Blood Count 4.42 X10*6/uL (4.20-5.50); Venous Blood Gas Refer to POC result; White Blood Count 5.6 X10*3/uL (4.8-10.8)
[2025-07-19 10:04] LABS: VBG HCO3 37 mmol/L (22-26); VBG O2 % Saturation 88.0 %
--- OUTSIDE RECORDS SUMMARY | 2025-07-19 10:36 | XMS_ITS | Clinical Summary ---
Author Organization [facility] Address [address] [place] [address] Care Team Providers Care Corporate General Manager Name Role Phone Alethea Marsh Primary Care Provider [phone] Allergies Active Allergy Reactions Criticality Noted Date [...] the affected area as needed for itching. Beltrami balm topical ointment PRN 3 times a [...] methotrexate, sulfasalazine -labs in a month at [facility] -hep B non-immune, hep C [...] and Pap Smear 1993 Pap Smear 1993 Alcohol/Substance Use Screening 11/10/2024 Depression Screening and Follow-Up 11/10/2024 Social Drivers of Health Annual Screening 11/10/2024 COVID-19 Vaccine ( season) 2025 09/15/2021, 03/10/2021, 02/10/2021 Influenza Vaccine (#1) 2025 09/24/2011, 2009 DTaP,Tdap,and [...] Screening Completed 07/30/2023 Procedures * Due to [place] [employer] law, this organization might not be sharing negative HIV tests. Procedure Name Priority Date/Time Associated Diagnosis Comments HEPATITIS C ANTIBODY W/REFLEX TO HCV RNA, QUANTITATIVE PCR Routine 07/30/2023 5:42 PM EDT Long-term use of high-risk medication from Last 3 Months or Most Recently Relevant to Health Maintenance Results * Due to [place] [employer] law, this organization might not be sharing negative HIV tests. * Hepatitis C Antibody w/Reflex to HCV RNA, Quantitative PCR (07/30/2023 5:42 PM EDT) Hepatitis C Antibody NON-REACT HUANG NON-REACT HUANG 07/31/2023 7:35 AM EDT [facility] Comment: HCV antibody was non-reactive. There is no laboratory evidence of HCV infection. In most cases, no further action is required. However, if recent HCV exposure is suspected, a test for HCV RNA (test code 37983) is suggested. For additional information please refer to http://education.Fotomoto/faq/WSN20t4 (This link is being provided for informational/ educational purposes only.) Blood Structure of peripheral vein / Unknown Venipuncture / Unknown 07/30/2023 5:42 PM EDT 07/30/2023 5:58 PM EDT Narrative [facility] - 07/31/2023 7:35 AM EDT [facility] Received Date: us Ted Hudson MD LAB BLOOD ORDERABLES Final Result [facility] [address], [place] [address], [place] [phone] J. Hilburn [facility] [address], [place] [address], [place] [phone] from Last 3 Months or Most Recently Relevant to Health Maintenance Insurance [facility] [employer] Advance Directives Documents on File Type Date Recorded Patient Hemotherapist Expl anation Health Care Proxy 12/04/2023 10:46 AM - Care Teams Corporate General Manager Relationship Specialty Start Date End Date Alethea Marsh [address] [place] [address] PCP - General 06/30/24
--- OUTSIDE RECORDS SUMMARY | 2025-07-19 10:36 | XMS_ITS | Encounter Summary ---
Author Organization [facility] Address [address] [place] [address] Care Team Providers Care Gathering Machine Setter Name Role Phone Alethea Marsh NP Primary Care Provider Reason for Visit * Reason Onset Date Comments Feeding Tube Concern 07/12/2025 Encounter Details Date Type Department Care Team (Late st Contact Info) Description 07/12/2025 Telephone General Surgery - [place] [address] [place] [address] Wei Hollis MA Social History Tobacco Use Types Packs/Day Years Used Date Smoking Tobacco: Former Cigarettes Q uit: 2015 Smokeless Tobacco: Never Alcohol Use Standard Drinks/Week [...] care for your loved ones. For example, early childhood education specialist or elderly care for an older adult? [...] PM EST documented as of this encounter Functional Status * Are you deaf or do you have serious difficulty hearing? Answer Date of Assessment Author No 06/20/2025 7:45 PM EDT Bette Miramontes, FINA * Are you blind or do you [...] Assessment Author Yes 06/20/2025 7:45 PM EDT eBtte Miramontes RN documented as of this encounter Mental Status * Because of a physical, mental, or emotional condition, do you have serious difficulty concentrating, remembering, or making decisions? (5 years old or older) Answer Entry Date Author Yes 06/20/2025 7:45 PM EDT Bette Miramontes RN documented in this encounter Progress Notes * Wei Hollis MA - 07/12/2025 2:06 PM EDT Placed call and spoke to Mandie (patient's sister) to relied Dr. Nino message. Mandie understood and agreed to it. If by she has not heard from Interventional Radiology she will give a me a call back to my ext, for me to call them. * Tj Nino DO - 07/12/2025 1:57 PM EDT It sounds as though it might just need to be re-evaluated by Interventional radiology. Possibly upsized. I will place order for them to evaulate. * Wei Hollis MA - 07/12/2025 9:38 AM EDT Mandie (patient sister) called to report that every morning when patient wakes up (since Friday)there is green stuff coming out of her feeding tube on the gauze and on her clothes. Patient got her surgery done on 06/22/[address] Maier, on 01/25/2025 pt were seen at our offices by Dr. Nino.Please review. Patient and sister are kiswahili speaker. documented in this encounter Plan of Treatment Not on file documented as of this encounter Visit Diagnoses Not on filedocumented in this encounter Care Teams Gathering Machine Setter Relationship Specialty Start Date End Date Alethea Marsh NP [address] [place] [address] PCP - General Internal Medicine 05/26/25 documented as of this encounter
--- OUTSIDE RECORDS SUMMARY | 2025-07-19 10:36 | XMS_ITS | Clinical Summary ---
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 Active enoxaparin (LOVENOX) 40 mg/0.4 mL syringe Inject 0.4 mL (40 mg total) under the skin 1 (one) time each day. Active ipratropium-a lbuteroL (DUONEB) 0.5-2.5 mg/3 mL nebulizer solution Take 3 mL by nebulization every 6 (six) hours. Active metoprolol succinate (TOPROL-XL) 25 mg 24 hr tablet Take 0.5 tablets (12.5 mg total) by mouth every 8 (eight) hours. Do not crush or chew. Active traZODone (DESYREL) 50 mg tablet Take 2 tablets (100 mg total) by mouth at bedtime. Active folic acid (FOLVITE) 1 mg tablet Take 1 tablet (1 mg total) by mouth 1 (one) time each day. Active guaiFENesin (ROBITUSSIN) 100 mg/5 mL liquid Take 30 mL (600 mg total) by mouth 3 (three) times a day if needed for cough. Active pyRIDostigmin e (MESTINON) 60 mg tablet Take 0.5 tablets (30 mg total) by mouth 4 (four) times a day. Active ibuprofen (ADVIL,MOTRIN ) 600 mg tablet Take 1 tablet (600 mg total) by mouth every 6 (six) hours if needed for mild pain. Active acetaminophen (TYLENOL) 500 mg tablet Take 2 tablets (1,000 mg total) by mouth every 8 (eight) hours if needed for moderate pain. Active traMADoL 25 mg tabletIndicat ions:pain Take 50 mg by mouth every 4 (four) hours. Max Daily Amount: 300 mg Active OLANZapine (ZyPREXA) 2.5 mg tablet Take 1 tablet (2.5 mg total) via g-tube at bedtime. 30 each 09/15/20 24 Active clonazePAM (KlonoPIN) 0.5 mg tablet Take 1 tablet (0.5 mg total) by mouth 2 (two) times a day if needed for anxiety for up to 3 days. Max Daily Amount: 1 mg 6 tablet 01/30/20 25 Active ammonium lactate (LAC-HYDRIN) 12 % lotion Apply topically 1 (one) time each day. 400 g 06/17/20 25 026 Active midodrine (PROAMATINE) 10 mg tablet Take 1 tablet (10 mg total) by mouth every 8 (eight) hours. 90 tablet 06/16/20 25 Active calcium carbonate-vit guthrie D 500 mg-5 mcg (200 unit) per tablet Take 2 tablets by mouth 2 (two) times a day. 120 each 06/16/20 25 026 Active ferrous sulfate 300 mg (60 mg elemental iron)/5 mL liquid Take 5 mL (300 mg total) by mouth 2 (two) times a day. 300 mL 06/16/20 25 026 Active magnesium oxide (MAG-OX) 400 mg (241.3 elemental magnesium) tablet Take 1.5 tablets (600 mg total) by mouth 3 (three) times a day. 90 tablet 2 06/16/20 25 Active busPIRone (BUSPAR) 10 mg tablet Take 1 tablet (10 mg total) by mouth 3 (three) times a day. 90 each 07/01/20 25 026 Active docusate (COLACE) 50 mg/5 mL liquid Take 20 mL (200 mg total) by mouth 1 (one) time each day. 025 Discontinued ferrous sulfate 300 mg (60 mg elemental iron)/5 mL liquid Take 5 mL (300 mg total) by mouth 2 (two) times a day. 025 Discontinued(S top Taking at Discharge) calcium carbonate-vit guthrie D 500 mg-5 mcg (200 unit) per tablet Take 1 tablet by mouth 1 (one) time each day. 025 Discontinued(S top Taking at Discharge) busPIRone (BUSPAR) 5 mg tablet Take 1 tablet (5 mg total) by mouth 3 (three) times a day. 025 Discontinued(S top Taking at Discharge) chlorhexidine (PERIDEX) 0.12 % solution Use 15 mL in the mouth or throat 2 (two) times a day. 025 Discontinued(S top Taking at Discharge) magnesium oxide (MAG-OX) 400 mg magnesium tablet Take 2 tablets (800 mg total) by mouth 3 (three) times a day. 025 Discontinued(S top Taking at Discharge) melatonin 3 mg tablet Take 1 tablet (3 mg total) by mouth at bedtime as needed for sleep. 025 Discontinued guaiFENesin (ROBITUSSIN) 100 mg/5 mL liquid 10 mL (200 mg total) by j-tube route every 6 (six) hours for 10 days. 120 mL 06/16/20 25 025 Discontinued(S top Taking at Discharge) metoprolol tartrate (LOPRESSOR) 25 mg tablet Take 0.5 tablets (12.5 mg total) by mouth every 8 (eight) hours. 45 each 06/30/20 25 025 Discontinued Active Problems Problem Noted Date Diagnosed Date Chronic hypoxic respiratory failure ([facility] V24, [facility] V28) 10/13/2024 Chronic respiratory failure requiring use of nocturnal mechanical ventilation through tracheostomy ([facility] V24, [facility] V28) 10/13/2024 Myasthenia gravis ([facility] V24, [facility] V28) 04/2024 Overview (09/15/2024): See hospital discharge summary scanned to chart 02/16/24 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 Treated with IVIG x5 days (last dose 01/02/24). Adrenal insufficiency ([facility] V24) 09/15/2024 Overview (09/15/2024): Diagnosed during Dec-February hospitalization at [facility] based on low Cortisol (12/25/23). Iron deficiency anemia 09/15/2024 Functional incontinence 09/15/[address] ([facility] V24, [facility] V28) 09/15/2024 Respiratory disorder with ve ntilator dependence ([facility] V24, [facility] V28) 09/15/2024 Immunocompromised state ([facility] V24) 09/15/2024 On mechanically assisted agusto tilation ([facility] V24, [facility] V28) 09/15/2024 Neuromyopathy syndrome ([facility] V24, [facility] V28 ) 09/15/2024 Quadriplegia and quadriparesis ([facility] V24, [facility] V28) 09/15/2024 Chronic tachycardia 09/15/2024 Hypercapnic respiratory failure ([facility] V24, [facility]) 09/10/2024 Jejunostomy tube in situ ([facility] V24, [facility] V 28) 04/02/2024 TOM positive 07/30/2023 Rheumatoid arthritis involvi ng multiple sites with positive rheumatoid factor ([facility] V24, [facility] V28) 07/29/2023 Resolved Problems Problem Noted Date Diagnosed Date Resolved Date Anxiety 06/21/2025 06/30/2025 Acute on chronic respiratory failure ([facility] V24, [facility] V28) 06/20/2025 06/30/2025 Respiratory distress 05/27/2025 025 [...] has been referred to neuromuscular clinic in [place], [place]. Weakness 09/15/2024 07/01/2025 Atelectasis of both lungs 09/15/2024 Encounters Date Type Department Care Team Description 07/18/2025 11:41 AM EDT - 07/18/2025 11:59 PM EDT Hospital Encounter [facility] Interventional Radiology [address] [place] [id number] Myasthenia gravis (CMS/HCC V24, CMS/HCC V28) Discharge Disposition: Home or Self Care 07/12/2025 Telephone General Surgery - [place] [address] [place] [id number] Wei Hollis [place] 06/20/2025 7:07 PM EDT - 07/01/2025 6:30 PM EDT Hospital Encounter [facility] ICU [address] [place] [id number] Ronnie Sierra MD Hung, MD Selene Robles Laurie, MD Bonacum, Julia T, MD Levrault, Richard, DO Acute respiratory failure with hypoxia (CMS/HCC V24, CMS/HCC V28) (Primary Dx); Hypoxia; Pneumonia due to infectious organism, unspecified laterality, unspecified part of lung; Chronic hypoxic respiratory failure (CMS/HCC V24, CMS/HCC V28); Anxiety; Chronic respiratory failure requiring use of nocturnal mechanical ventilation through tracheostomy (CMS/HCC V24, CMS/HCC V28); Quadriplegia and quadriparesis ([facility] V24, [facility] V28); On mechanically assisted ventilation ([facility] V24, [facility] V28); Immunocompromised state ([facility] V24); Weakness; Respiratory disorder with ventilator dependence ([facility] V24, [facility] V28); Tracheostomy in place ([facility] V24, [facility] V28); Functional incontinence; Adrenal insufficiency ([facility] V24); Jejunostomy tube in situ ([facility] V24, [facility] V28); Myasthenia gravis ([facility] V24, [facility] V28); Rheumatoid arthritis involving multiple sites with positive rheumatoid factor ([facility] V24, [facility] V28); Failure to thrive in adult; Neuromyopathy syndrome ([facility] V24, [facility] V28) Discharge Disposition: Home-Health Care [facility] 06/20/2025 Telephone [facility] Hematology Oncology [address] [place] [address] Aaron Serrato MD 05/26/2025 8:27 PM EDT - 06/16/2025 11:45 AM EDT Hospital Encounter [facility] ICU [address] [place] [address] Cm Narvaez MD Loiacono, Laurie, MD Bonacum, Julia T, MD Levrault, Richard, DO Quadriplegia and quadriparesis ([facility] V24, [facility] V28) (Primary Dx); Respiratory distress; Acute pneumonia; Sepsis with acute hypoxic respiratory failure without septic shock, due to unspecified organism ([facility] V24, [facility] V28); Acute on chronic respiratory failure with hypoxia ([facility] V24, [facility] V28); Localized edema; Chronic respiratory failure requiring use of nocturnal mechanical ventilation through tracheostomy ([facility] V24, [facility] V28); Chronic hypoxic respiratory failure ([facility] V24, [facility] V28); Hypoxia; Chronic tachycardia; Neuromyopathy syndrome ([facility] V24, [facility] V28); On mechanically assisted ventilation ([facility] V24, [facility] V28); Atelectasis of both lungs; Immunocompromised state ([facility] V24); TOM positive; Respiratory disorder with ventilator dependence ([facility] V24, [facility] V28); Weakness; Tracheostomy in place ([facility] V24, [facility] V28); Failure to thrive in adult; Functional incontinence; Myasthenia gravis ([facility] V24, [facility] V28) Discharge Disposition: Home-Health Care c 05/19/2025 7:17 AM EDT - 05/19/2025 11:59 PM EDT Hospital Encounter [facility] Interventional Radiology [address] [place] [address] Quadriplegia and quadriparesis ([facility] V24, [facility] V28); Myasthenia gravis ([facility] V24, [facility] V28) Discharge Disposition: Home or Self Care 05/03/2025 Telephone General Surgery - [place] [address] [place] [address] Tj Nino, DO from Last 3 Months Surgical History Surgery Date Site/Laterality Comments TRACHEOSTOMY TUBE PLACEMENT IR PERCUTANEOUS JEJUNOSTOMY TUBE PLACEMENT Left Medical History Medical History Date Comments Myasthenia gravis ([facility] V24, [facility] V28[facility] Gastrointestinal tube present ([facility] V24, [facility] V28[facility] Tracheostomy dependent ([facility] V24, [facility] V28 ) Social History Tobacco Use [...] care for your loved ones. For example, rn child or elderly care for an older adult? [...] (170 lb) 07/18/2025 11:51 AM EDT Height 165.1 cm (5' 5 ) 06/22/2025 8:02 AM EDT Body Mass Index 28.29 06/22/2025 8:02 AM EDT Plan of Treatment Health Maintenance Due Date Last Done Comments Cervical Cancer Screening: Pap Smear 2014 Cholesterol Screening (Lipid Panel) 12/09/2023 HIV Screening 12/09/2023 Medicare Annual Wellness Visit 12/09/2023 Depression Screening 11/10/2024 COVID-19 Vaccine ( season) 2025 09/15/2021, 03/10/2021, 02/10/2021 Influenza Vaccine (#1) 2025 09/24/2011, 2009 Social [...] Routine 07/18/2025 1:33 PM EDT Myasthenia gravis ([facility] V24, [facility] V28) CBC WITH AUTO DIFFERENTIAL Routine 07/01/2025 3:44 [...] ECG 12-LEAD STAT 06/20/2025 7:16 PM EDT [facility] 30-74 MINUTES Routine 06/20/2025 6:57 [...] 8:00 PM EDT VENTILATOR, ADULT Routine 06/10/2025 8:0 2 AM EDT OXYGEN THERAPY, ADULT Routine 06/10/2025 [...] 3:16 AM EDT CALCIUM, IONIZED Routine 06/09/2025 3:1 6 AM EDT BASIC METABOLIC PANEL Routine 06/09/2025 3:16 AM EDT VENTILATOR, ADULT Routine 06/08/2025 8:0 0 PM EDT OXYGEN THERAPY, ADULT Routine 06/08/2025 [...] CULTURE BLOOD STAT 05/26/2025 10:06 PM EDT [id number], RSV, FLU A AND B QUALITATIVE RT-PCR, INTERNAL LAB STAT 05/26/2025 9:32 PM EDT XR CHEST 1 VIEW STAT 05/26/2025 9:08 PM EDT SST - GOLD Routine 05/26/2025 8:56 PM EDT EXTRA TUBES Routine 05/26/2025 8:56 PM EDT ECG 12-LEAD STAT 05/26/2025 8:43 PM EDT [facility] 30-74 MINUTES Routine 05/26/2025 8:21 PM EDT IR REPLACE DUOD/J-TUBE PERC W FLUORO Routine 05/19/2025 10:01 AM EDT Quadriplegia and quadriparesis (CMS/HCC V24, CMS/HCC V28) Myasthenia gravis (CMS/HCC V24, CMS/HCC V28) from Last 3 Months Results * IR Replace Duod/J-Tube Perc w Fluoro (07/18/2025 1:33 PM EDT) Only the most recent of2 resultswithin the time period is included. Anatomical Region Laterality Modality N/A Interventional R adiology 07/18/2025 4:12 PM EDT Impressions 07/18/2025 4:42 PM EDT 16-Kenyan jejunostomy tube exchange as described above. The catheter is available for immediate use. -------- FINAL REPORT -------- Dictated By: Beth Akers Dictated Date: 07/18/2025 16:12 ET Assigned Physician: Nickolas Wong Reviewed and Electronically Signed By: Nickolas Wong Signed Date: 07/18/2025 16:42 ET Workstation ID: [id number] Transcribed By: Self Edit Transcribed Date: 07/18/2025 16:26 ET Resident/PA/SURVEILLANCE CAMERA TECHNICIAN: Beth Akers Narrative 07/18/2025 4:42 PM EDT Jejunostomy tube exchange INDICATION: Leaking around site, chronic j tube. Informed consent was obtained with a upholstery estimator via the healthcare proxy. Moderate intravenous sedation [...] fashion. Injection of contrast through the pre-existing 16-Kenyan jejunostomy tube demonstrated good positioning. Evaluation of [...] tube. Informed consent was obtained with a upholstery estimator [facility]. Moderate intravenous sedation was initiated and [...] sterile fashion. Injectionof contrast through the pre-existing 16-Kenyan jejunostomy tubedemonstrated good positioning. Evaluation of existing [...] tolerated theprocedure well. Air kerma: 3mGy IMPRESSION: 16-Kenyan jejunostomy tube exchange as described above. The catheter isavailable for immediate use. -------- FINAL REPORT -------- Dictated By: Beth Akers Dictated Date: 07/18/2025 16:12 ET Assigned Physician: Nickolas Wong Reviewed and Electronically Signed By: Nickolas Wong Signed Date: 07/18/2025 16:42 ET Workstation ID: [id number] Transcribed By: Self Edit Transcribed Date: 07/18/2025 16:26 ET Resident/PA/SURVEILLANCE [employer]ER[employer] TECHNICIAN: Beth Akers Tj Nino DO IMG IR PROCEDURES Final Result * (ABNORMAL) Procalcitonin (07/01/2025 3:44 AM EDT) Only the most recent of17 resultswithin the time period is included. Procalcitonin 0.21(H) <=0.16 ng/mL LAB CHEMISTRY METHOD 07/01/2025 7:49 AM EDT [facility] Blood Venous blood specimen / Unknown Venipuncture / Unknown 07/01/2025 3:44 AM EDT 07/01/2025 4:00 AM EDT Narrative [facility] - 07/01/2025 7:49 AM EDT [...] DO LAB BLOOD ORDERABLES Final R esult [facility] [address] [place] [address], * (ABNORMAL) CBC auto differential (07/01/2025 3:44 AM EDT) Only the most recent of35 resultswithin the time period is included. WBC 5.9 4.8 - 10.8 K/mcL LAB HEMETOLOGY METHOD 07/01/2025 4:03 AM [facility] RBC 3.30(L) 3.80 - 4.80 M/mcL LAB HEMETOLOGY METHOD 07/01/2025 4:03 AM [facility] Hemoglobin 7.0(L) 11.5 - 16.0 g/dL LAB HEMETOLOGY METHOD 07/01/2025 4:03 AM [facility] Hematocrit 25.4(L) 35.0 - 47.0 % LAB HEMETOLOGY METHOD 07/01/2025 4:03 AM [facility] MCV 77.2(L) 79.0 - 98.0 FL LAB HEMETOLOGY METHOD 07/01/2025 4:03 AM [facility] MCH 21.3(L) 27.0 - 32.0 pcg LAB HEMETOLOGY METHOD 07/01/2025 4:03 AM [facility] MCHC 27.6(L) 32.0 - 37.0 g/dL LAB HEMETOLOGY METHOD 07/01/2025 4:03 AM [facility] RDW 19.3(H) 11.0 - 15.0 % LAB HEMETOLOGY METHOD 07/01/2025 4:03 AM [facility] Platelets 279 130 - 400 K/mcL LAB HEMETOLOGY METHOD 07/01/2025 4:03 AM [facility] MPV 9.4 7.0 - 11.0 FL LAB HEMETOLOGY METHOD 07/01/2025 4:03 AM [facility] NRBC 0.0 <1.0 % LAB HEMETOLOGY METHOD 07/01/2025 4:03 AM [facility] NRBC Absolute 0.00 <0.10 K/mcL LAB HEMETOLOGY METHOD 07/01/2025 4:03 AM [facility] Neutrophils Relative 80.7 % LAB HEMETOLOGY METHOD 07/01/2025 4:03 AM [facility] Lymphocytes Relative 16.8 % LAB HEMETOLOGY METHOD 07/01/2025 4:03 AM [facility] Monocytes Relative 1.7 % LAB HEMETOLOGY METHOD 07/01/2025 4:03 AM [facility] Eosinophils Relative 0.5 % LAB HEMETOLOGY METHOD 07/01/2025 4:03 AM [facility] Basophils Relative 0.0 % LAB HEMETOLOGY METHOD 07/01/2025 4:03 AM [facility] Immature Granulocytes Relative 0.3 % LAB HEMETOLOGY METHOD 07/01/2025 4:03 AM [facility] Neutrophils Absolute 4.72 1.50 - 7.00 K/mcL LAB HEMETOLOGY METHOD 07/01/2025 4:03 AM [facility] Lymphocytes Absolute 0.98(L) 1.00 - 5.00 K/mcL LAB HEMETOLOGY METHOD 07/01/2025 4:03 AM [facility] Monocytes Absolute 0.10(L) 0.20 - 1.00 K/mcL LAB HEMETOLOGY METHOD 07/01/2025 4:03 AM [facility] Eosinophils Absolute 0.03 0.00 - 0.50 K/mcL LAB HEMETOLOGY METHOD 07/01/2025 4:03 AM [facility] Basophils Absolute 0.00 0.00 - 0.20 K/mcL LAB HEMETOLOGY METHOD 07/01/2025 4:03 AM [facility] Immature Granulocytes Absolute 0.02 0.00 - 0.03 K/mcL LAB HEMETOLOGY METHOD 07/01/2025 4:03 AM [facility] Blood Venous blood specimen / Unknown Venipuncture / Unknown 07/01/2025 3:44 AM EDT 07/01/2025 4:00 AM EDT Parveen Warner LAB BLOOD ORDERABLES Final R esult Performing Organization Address City/[facility]/ZIP Co de Phone Number [facility] [address] [place] [address], [place] [phone] * Phosphorus (07/01/2025 3:44 AM EDT) Only the most recent of32 resultswithin the time period is included. Phosphorus 4.0 2.5 - 4.5 mg/dL LAB CHEMISTRY METHOD 07/01/2025 4:19 AM EDT [facility] Blood Venous blood specimen / Unknown Venipuncture / Unknown 07/01/2025 3:44 AM EDT 07/01/2025 4:00 AM EDT [facility] Final R esult Performing Organization Address [facility] Co de Phone Number [facility] [address] [place] [address], [place] [phone] * Magnesium (07/01/2025 3:44 AM EDT) Only the most recent of37 resultswithin the time period is included. Magnesium 1.9 1.9 - 2.6 mg/dL LAB CHEMISTRY METHOD 07/01/2025 4:19 AM EDT [facility] Blood Venous blood specimen / Unknown Venipuncture / Unknown 07/01/2025 3:44 AM EDT 07/01/2025 4:00 AM EDT [facility] BLOOD ORDERABLES Final R esult Performing Organization Address City/[facility]/ZIP Co de Phone Number [facility] [address] [place] [address], [place] [phone] * (ABNORMAL) Calcium, ionized (07/01/2025 3:44 AM EDT) Only the most recent of34 resultswithin the time period is included. [facility] Calcium Ionized 4.44(L) 4.50 - 5.30 mg/dL 07/01/2025 4:03 AM [facility] Blood Venous blood specimen / Unknown Venipuncture / Unknown 07/01/2025 3:44 AM EDT 07/01/2025 4:00 AM EDT Parveen Warner DO LAB BLOOD ORDERABLES Final R esult [facility] [address] [place] [address], [place] [phone] * (ABNORMAL) Basic metabolic panel (07/01/2025 3:44 AM EDT) Only the most recent of28 resultswithin the time period is included. [facility] Sodium 134 133 - 145 mmol/L LAB CHEMISTRY METHOD 07/01/2025 4:21 AM [facility] Potassium 4.7 3.5 - 5.5 mmol/L LAB CHEMISTRY METHOD 07/01/2025 4:21 AM [facility] Chloride 97 96 - 110 mmol/L LAB CHEMISTRY METHOD 07/01/2025 4:21 AM [facility] CO2 36(H) 21 - 32 mmol/L LAB CHEMISTRY METHOD 07/01/2025 4:21 AM [facility] Anion Gap 1(L) 3 - 11 LAB CHEMISTRY METHOD 07/01/2025 4:21 AM [facility] Glucose 83 70 - 100 mg/dL LAB CHEMISTRY METHOD 07/01/2025 4:21 AM [facility] BUN 10 5 - 25 mg/dL LAB CHEMISTRY METHOD 07/01/2025 4:21 AM [facility] Creatinine <0.15(L) 0.50 - 1.10 mg/dL LAB CHEMISTRY METHOD 07/01/2025 4:21 AM EDT [facility] eGFR LAB CHEMISTRY METHOD 07/01/2025 4:21 AM T [facility] Comment:Creatinine above or below reportable range; unable to calculate eGFR. BUN/Creatinine Ratio LAB CHEMISTRY METHOD 07/01/2025 4:21 AM EDT [facility] Comment:Creatinine and/or Ur ea Nitrogen (BUN) above or below reportable range; unable to calculate BUN/Creatinine Ratio. Calcium 8.2(L) 8.5 - 10.5 mg/dL LAB CHEMISTRY METHOD 07/01/2025 4:21 AM EDT [facility] Blood Venous blood specimen / Unknown Venipuncture / Unknown 07/01/2025 3:44 AM EDT 07/01/2025 4:00 AM EDT Parveen Warner DO LAB BLOOD ORDERABLES Final R esult [facility] [address] [place] [address], * (ABNORMAL) Manual differential (06/30/2025 4:17 AM EDT) Only the most recent of7 resultswithin the time period is included. Neutrophils % 80.0 % LAB HEMETOLOGY METHOD 06/30/2025 5:22 AM EDT [facility] Bands % 2.0 % LAB HEMETOLOGY METHOD 06/30/2025 5:22 AM EDT [facility] Lymphocytes % 17.0 % LAB HEMETOLOGY METHOD 06/30/2025 5:22 AM T [facility] Monocytes % 1.0 % LAB HEMETOLOGY METHOD 06/30/2025 5:22 AM EDT [facility] Eosinophils % 0.0 % LAB HEMETOLOGY METHOD 06/30/2025 5:22 AM [facility] Basophils % 0.0 % LAB HEMETOLOGY METHOD 06/30/2025 5:22 AM [facility] Neutrophils Absolute Manual 3.52 1.50 - 7.00 K/mcL LAB HEMETOLOGY METHOD 06/30/2025 5:22 AM [facility] Bands Absolute Manual 0.09(H) 0.00 - 0.00 K/mcL LAB HEMETOLOGY METHOD 06/30/2025 [facility] Lymphocytes Absolute 0.75(L) 1.00 - 5.00 K/mcL LAB HEMETOLOGY METHOD 06/30/2025 5:22 AM [facility] Monocytes Absolute Manual 0.04(L) 0.20 - 1.00 K/mcL LAB HEMETOLOGY METHOD 06/30/2025 5:22 AM [facility] Eosinophils Absolute Manual 0.00 0.00 - 0.50 K/mcL LAB HEMETOLOGY METHOD 06/30/2025 5:22 AM [facility] Basophils Absolute Manual 0.00 0.00 - 0.20 K/mcL LAB HEMETOLOGY METHOD 06/30/2025 5:[facility] Rbc Morphology Present( A) Consistent with indices, Normal for [place] LAB HEMETOLOGY METHOD 06/30/2025 5:22 AM [facility] Comment:RBC: Morphology agre es with CBC Platelet Morphology - WAM See Note(A) Normal LAB HEMETOLOGY METHOD 06/30/2025 5:22 AM [facility] Comment:PLT: Normal Blood Venous blood specimen / Unknown Venipuncture / Unknown 06/30/2025 4:17 AM EDT 06/30/2025 4:36 AM EDT Parveen Warner DO LAB BLOOD ORDERABLES Final R esult [facility] [address] [place] [address], * XR Chest 1 View (06/29/2025 6:04 AM EDT) Only the most recent of22 resultswithin the time period is included. Anatomical Region Laterality Modality Body Radiographic Liliana ging 06/29/2025 8:26 AM EDT Impressions 06/29/2025 8:27 AM EDT Impression: 1. Satisfactory positioning of support tubes and line. 2. No significant change in bilateral pulmonary infiltrates. Telerad PA ([id number]) -------- FINAL REPORT -------- Dictated By: Elissa Reynolds Dictated Date: 06/29/2025 08:26 ET Assigned Physician: Elissa Reynolds Reviewed and Electronically Signed By: Elissa Reynolds Signed Date: 06/29/2025 08:27 ET Workstation ID: [id number] Transcribed By: Self Edit Transcribed Date: 06/29/2025 [...] change in bilateral pulmonary infiltrates. Telerad PA ([id number]) -------- FINAL REPORT -------- Dictated By: Elissa Reynolds Dictated Date: 06/29/2025 08:26 ET Assigned Physician: Elissa Reynolds Reviewed and Electronically Signed By: Elissa Reynolds Signed Date: 06/29/2025 08:27 ET Workstation ID: [id number] Transcribed By: Self Edit Transcribed Date: 06/29/2025 08:26 ET us Araseli Morton MD IMG XR PROCEDURES Final Resul t * Lactate (06/29/2025 3:29 AM EDT) Only the most recent of8 resultswithin the time period is included. Pathologist [facility] Lactate 0.5 0.4 - 2.0 mmol/L LAB CHEMISTRY METHOD 06/29/2025 4:14 AM EDT [facility] Blood Blood sample taken from central line / Unknown Existing Catheter / Unknown 06/29/2025 3:29 AM EDT 06/29/2025 3:46 AM EDT us Araseli Morton MD LAB BLOOD ORDERABLES Final Re sult [facility] [address] [place] [address], [place] [phone] * (ABNORMAL) Venous blood gas (06/29/2025 3:29 AM EDT) Only the most recent of13 resultswithin the time period is included. Pathologist [facility] pH, Agusto 7.40 7.32 - 7.42 pH 06/29/2025 3:48 AM EDT [facility] pCO2, Agusto 57(H) 41 - 51 mmHg 06/29/2025 3:48 AM EDT [facility] pO2, Agusto 40 25 - 40 mmHg 06/29/2025 3:48 AM EDT [facility] HCO3, Venous 31.7(H) 22.0 - 26.0 mmol/L 06/29/2025 3:48 AM EDT [facility] O2 Sat, Agusto 68.1 % 06/29/2025 3:48 AM EDT [facility] Base Excess, Agusto 9.3(H) -2.0 - 2.0 mmol/L 06/29/2025 3:48 AM EDT [facility] Blood Venous blood specimen / Unknown Existing Catheter / Unknown 06/29/2025 3:29 AM EDT 06/29/2025 3:45 AM EDT us Araseli Morton MD LAB BLOOD ORDERABLES Final Re sult [facility] [address] [place] [address], [place] [phone] * (ABNORMAL) Comprehensive metabolic panel (06/29/2025 3:29 AM EDT) Only the most recent of7 resultswithin the time period is included. Sodium 134 133 - 145 mmol/L LAB CHEMISTRY METHOD 06/29/2025 4:21 AM [facility] Potassium 4.4 3.5 - 5.5 mmol/L LAB CHEMISTRY METHOD 06/29/2025 4:21 AM T [facility] Chloride 97 96 - 110 mmol/L LAB CHEMISTRY METHOD 06/29/2025 4:21 AM [facility] CO2 35(H) 21 - 32 mmol/L LAB CHEMISTRY METHOD 06/29/2025 4:21 AM [facility] Anion Gap 2(L) 3 - 11 LAB CHEMISTRY METHOD 06/29[facility]20[facility] Glucose 87 70 - 100 mg/dL LAB CHEMISTRY METHOD 06/29/2025 4:21 AM [facility] BUN 10 5 - 25 mg/dL LAB CHEMISTRY METHOD 06/29/2025 4:21 AM [facility] Creatinine 0.17(L) 0.50 - 1.10 mg/dL LAB CHEMISTRY METHOD 06/29/2025 4:21 AM [facility] eGFR 166 >=60 mL/min/1. 73m2 LAB CHEMISTRY METHOD 06/29/2025 4:21 AM [facility] Comment:Calculation based on the Chronic Kidney Disease Epidemiology Collaboration (CKD-EPI) equation refit without adjustment for race. BUN/Creatinine Ratio 58.8 LAB CHEMISTRY METHOD 06/29/2025 4:21 AM [facility] Calcium 8.2(L) 8.5 - 10.5 mg/dL LAB CHEMISTRY METHOD 06/29/2025 4:21 AM [facility] AST (SGOT) 15 10 - 42 unit/L LAB CHEMISTRY METHOD 06/29/2025 4:21 AM [facility] ALT (SGPT) 6(L) 10 - 60 unit/L LAB CHEMISTRY METHOD 06/29/2025 4:21 AM [facility] Alkaline Phosphatase 53 42 - 121 unit/L LAB CHEMISTRY METHOD 06/29/2025 4:21 AM [facility] Total Protein 6.8 6.0 - 8.0 g/dL LAB CHEMISTRY METHOD 06/29/2025 4:21 AM [facility] Albumin 2.0(L) 3.2 - 5.0 g/dL LAB CHEMISTRY METHOD 06/29/2025 4:21 AM [facility] Total Bilirubin 0.2 0.0 - 1.4 mg/dL LAB CHEMISTRY METHOD 06/29/2025 4:21 AM [facility] Blood Blood sample taken from central line / Unknown Existing Catheter / Unknown 06/29/2025 3:29 AM EDT 06/29/2025 3:47 AM EDT Araseli Morton MD LAB BLOOD ORDERABLES Final Re sult Performing Organization Address [facility] de Phone Number [facility] [address] [place] [address], * (ABNORMAL) Central line blood gas (06/28/2025 4:22 AM EDT) Only the most recent of12 resultswithin the time period is included. pH Central Line 7.39 7.32 - 7.43 06/28/2025 4:46 AM EDT [facility] pCO2 Central Line 60 40 - 60 mmHg 06/28/2025 4:46 AM EDT [facility] pO2 Central Line 45 30 - 55 mmHg 06/28/2025 4:46 AM EDT [facility] HCO3 Central Line 33(H) 22 - 26 mmol/L 06/28/2025 4:46 AM EDT [facility] O2 Saturation, Central Line 78 % 06/28/2025 4:46 AM EDT [facility] Base Excess, Central Line 10(H) -2 - 2 mmol/L 06/28/2025 4:46 AM EDT [facility] Blood Blood sample taken from central line / Unknown Existing Catheter / Unknown 06/28/2025 4:22 AM EDT 06/28/2025 4:40 AM EDT Jada Grissom MD LAB BLOOD ORDERABLES Final Re sult Performing Organization Address [facility]/ZIP Co de Phone Number [facility] [address] [place] [address], * ECG 12 lead (06/26/2025 2:26 PM EDT) Only the most recent of4 resultswithin the time period is included. Ventricular Rate ECG 94 BPM GEMUSE Atrial Rate 94 BPM GEMUSE P-R Interval 150 ms GEMUSE QRS Duration 82 ms GEMUSE Q-T Interval 358 ms GEMUSE QTc 447 ms GEMUSE P Wave [place] 40 degrees GEMUSE R [place] 21 degrees GEMUSE T [place] 26 degrees GEMUSE ECG Interpretation Normal sinus [...] likely chronic. No significant change. Telerad ERICK ([id number]) -------- FINAL REPORT -------- Dictated By: Elissa Reyonlds Dictated Date: 06/26/2025 14:27 ET Assigned Physician: Elissa Reynolds Reviewed and Electronically Signed By: Elissa Reynolds Signed Date: 06/26/2025 14:31 ET Workstation ID: [id number] Transcribed By: Self Edit Transcribed Date: 06/26/2025 [...] femoral vein,likely chronic. [place] ([id number]) -------- FINAL REPORT -------- Dictated By: Elissa Reynolds Dictated Date: 06/26/2025 14:27 ET Assigned Physician: Elissa Reynolds Reviewed and Electronically Signed By: Elissa Reynolds Signed Date: 06/26/2025 14:31 ET Workstation ID: [id number] Transcribed By: Self Edit Transcribed Date: 06/26/2025 14:27 ET us Jada Grissom MD CV VASCULAR PROCEDURES Final Result * (ABNORMAL) Hepatic function panel (06/24/2025 3:52 AM EDT) Only the most recent of5 resultswithin the time period is included. Total Protein 6.6 6.0 - 8.0 g/dL LAB CHEMISTRY METHOD 06/24/2025 4:56 AM T [facility] Albumin 2.1(L) 3.2 - 5.0 g/dL LAB CHEMISTRY METHOD 06/24/2025 [facility] Total Bilirubin 0.3 0.0 - 1.4 mg/dL LAB CHEMISTRY METHOD 06/24/2025 4:56 AM [facility] Bilirubin, Direct <0.1 0.0 - 0.3 mg/dL LAB CHEMISTRY METHOD 06/24/2025 4:56 AM [facility] Bilirubin, Indirect LAB CHEMISTRY METHOD 06/24/2025 4:56 AM [facility] Comment:Unable to calculate Indirect Bilirubin. ALT (SGPT) 9(L) 10 - 60 unit/L LAB CHEMISTRY METHOD 06/24/2025 4:56 AM [facility] AST (SGOT) 14 10 - 42 unit/L LAB CHEMISTRY METHOD 06/24/2025 4:56 AM [facility] Alkaline Phosphatase 54 42 - 121 unit/L LAB CHEMISTRY METHOD 06/24/2025 4:56 AM [facility] Blood Blood sample taken from central line / Unknown Venipuncture / Unknown 06/24/2025 3:52 AM EDT 06/24/2025 4:25 AM EDT us Jada Grissom MD LAB BLOOD ORDERABLES Final Re sult [facility] [address] [place] [address], * (ABNORMAL) Complete blood count (06/22/2025 12:04 PM EDT) Only the most recent of2 resultswithin the time period is included. [facility] WBC 6.5 4.8 - 10.8 K/mcL LAB HEMETOLOGY METHOD 06/22/2025 12:34 PM [facility] RBC 3.40(L) 3.80 - 4.80 M/mcL LAB HEMETOLOGY METHOD 06/22/2025 12:34 PM [facility] Hemoglobin 7.5(L) 11.5 - 16.0 g/dL LAB HEMETOLOGY METHOD 06/22/2025 12:34 PM [facility] Hematocrit 27.5(L) 35.0 - 47.0 % LAB HEMETOLOGY METHOD 06/22/2025 12:34 PM [facility] MCV 80.9 79.0 - 98.0 FL LAB HEMETOLOGY METHOD 06/22/2025 12:34 PM [facility] MCH 22.1(L) 27.0 - 32.0 pcg LAB HEMETOLOGY METHOD 06/22/2025 12:34 PM [facility] MCHC 27.3(L) 32.0 - 37.0 g/dL LAB HEMETOLOGY METHOD 06/22/2025 12:34 PM [facility] RDW 19.3(H) 11.0 - 15.0 % LAB HEMETOLOGY METHOD 06/22/2025 12:34 PM [facility] Platelets 217 130 - 400 K/mcL LAB HEMETOLOGY METHOD 06/22/2025 12:34 PM [facility] MPV 10.4 7.0 - 11.0 FL LAB HEMETOLOGY METHOD 06/22/2025 12:34 PM [facility] NRBC 0.0 <1.0 % LAB HEMETOLOGY METHOD 06/22/2025 12:34 PM [facility] NRBC Absolute 0.00 <0.10 K/mcL LAB HEMETOLOGY METHOD 06/22/2025 12:34 PM [facility] Blood Venous blood specimen / Unknown Venipuncture / Unknown 06/22/2025 12:04 PM EDT 06/22/2025 12:15 PM EDT us Edwar SUAREZ LAB BLOOD ORDERABLES Final Resul t Performing Organization Address [facility] de Phone Number [facility] [address] [place] [address], * Transfuse RBC (06/22/2025 11:06 AM EDT) Only the most recent of3 resultswithin the time period is included. us Edwar SUAREZ BLOOD TRANSFUSION ORDERABLES Fin al Result * Antibody identification (06/22/2025 6:22 AM EDT) Antibody Identification K Antibody ([place]) 06/22/2025 8:51 AM EDT [facility] Blood Venous blood specimen / Unknown Venipuncture / Unknown 06/22/2025 6:22 AM EDT 06/22/2025 6:32 AM EDT us Edwar SUAREZ LAB BLOOD BANK TEST ORDERABLES F inal Result Performing Organization Address [facility] de Phone Number [facility] [address] [place] [address], * Type and screen (06/22/2025 6:22 AM EDT) Only the most recent of2 resultswithin the time period is included. ABO Group O 06/22/2025 8:49 AM EDT [facility] Rh Type Positive 06/22/2025 8:49 AM EDT [facility] Antibody Screen Positive 06/22/2025 8:49 AM EDT [facility] Blood Venous blood specimen / Unknown Venipuncture / Unknown 06/22/2025 6:22 AM EDT 06/22/2025 6:32 AM EDT us Edwar SUAREZ LAB BLOOD BANK TEST ORDERABLES F inal Result Performing Organization Address [facility] Co de Phone Number [facility] [address] [place] [address], [place] [phone] * Prepare RBC: 1 Units (06/22/2025 5:52 AM EDT) Only the most recent of3 resultswithin the time period is included. Product Code [id number] 06/22/2025 9:13 AM EDT [facility] Unit Number [id number] 06/22/20 9:13 AM EDT [facility] Crossmatch Compatible 06/22/2025 8:53 AM EDT [facility] Dispense Status Transfused 06/22/2025 9:13 AM EDT [facility] Unit ABO Rh ONEG 06/22/2025 9:13 AM EDT [facility] Unit Expiration Date Time [id number] 06/22/2025 9:13 AM EDT [facility] Unit Blood Type 9500 06/22/2025 9:13 AM EDT [facility] Blood Venous blood specimen / Unknown 06/22/2025 5:52 AM EDT 06/22/2025 6:32 AM EDT us Edwar SUAREZ BLOOD BANK PRODUCT ORDERABLES Fi nal Result Performing Organization Address City/[facility]/ZIP Co de Phone Number [facility] [address] [place] [address], * (ABNORMAL) Culture sputum (06/21/2025 3:59 PM EDT) Only the most recent of3 resultswithin the time period is included. Culture, Sputum Serratia marcescens(A) LAURIE 06/25/2025 8:52 AM EDT [facility] Comment: The organism value for this result has been updated. These results have been appended to the previously preliminary verified report. This is an edited result. Previous organism was Gram negative bacilli on 06/23/2025 at 0913 EDT. Culture, Sputum Pseudomonas aeruginosa(A) LAURIE 06/25/2025 8:52 AM EDT [facility] Comment: The organism value for this result has been updated. These results have been appended to the previously preliminary verified report. Gram Stain Result No Epithelial cells 06/25/2025 8:52 AM EDT [facility] Gram Stain Result Few Polymorphonuclear leukocytes 06/25/2025 8:52 AM EDT [facility] Gram Stain Result No organisms seen 06/25/2025 8:52 AM EDT [facility] Sputum, aspirated Lung structure / [...] ORDER ALEJANDRA Final Result Performing Organization Address City/[facility]/ZIP Co de Phone Number [facility] [address] [place] [address], [place] [phone] * POCT Glucose, blood (06/21/2025 11:17 AM EDT) Only the most recent of6 resultswithin the time period is included. [facility] Glucose POCT 88 70 - 100 mg/dL 06/21/2025 11:18 AM EDT [facility] Blood Capillary blood specimen / Unknown 06/21/2025 11:17 AM EDT 06/21/2025 11:19 AM EDT Araseli Morton MD LAB POINT OF CARE TE ST DOCKED DEVICE UNSOLICITED RESULTS Final Result Performing Organization Address [facility]/ZIP Co de Phone Number [facility] [address] [place] [address], [place] [phone] * Respiratory virus panel molecular study (06/21/2025 4:32 AM EDT) Only the most recent of2 resultswithin the time period is included. [facility] Adenovirus Detection by PCR Not Detected Not Detected LAB MICROBIOLOGY METHOD 06/21/2025 5:50 AM EDT [facility] Influenza A PCR Not Detected Not Detected LAB MICROBIOLOGY METHOD 06/21/2025 5:50 AM EDT [facility] Influenza B PCR Not Detected Not Detected LAB MICROBIOLOGY METHOD 06/21/2025 5:50 AM EDT [facility] Coronavirus 229E Not Detected Not Detected LAB MICROBIOLOGY METHOD 06/21/2025 5:50 AM EDT [facility] Coronavirus HKU1 Not Detected Not Detected LAB MICROBIOLOGY METHOD 06/21/2025 5:50 AM EDT [facility] Coronavirus OC43 Not Detected Not Detected LAB MICROBIOLOGY METHOD 06/21/2025 5:50 AM EDT [facility] Coronavirus NL63 Not Detected Not Detected LAB MICROBIOLOGY METHOD 06/21/2025 5:50 AM EDT [facility] Parainfluenza Virus 1 Not Detected Not Detected LAB MICROBIOLOGY METHOD 06/21/2025 5:50 AM EDT [facility] Parainfluenza Virus 2 Not Detected Not Detected LAB MICROBIOLOGY METHOD 06/21/2025 5:50 AM EDT [facility] Parainfluenza Virus 3 Not Detected Not Detected LAB MICROBIOLOGY METHOD 06/21/2025 5:50 AM EDT [facility] Parainfluenza Virus 4 Not Detected Not Detected LAB MICROBIOLOGY METHOD 06/21/2025 5:50 AM EDT [facility] RSV PCR Not Detected Not Detected LAB MICROBIOLOGY METHOD 06/21/2025 5:50 AM EDT [facility] Human Metapneumovirus A and B Not Detected Not Detected LAB MICROBIOLOGY METHOD 06/21/2025 5:50 AM EDT [facility] Rhinovirus/Entero virus Not Detected Not Detected LAB MICROBIOLOGY METHOD 06/21/2025 5:50 AM EDT [facility] Bordetella pertussis Not Detected Not Detected LAB MICROBIOLOGY METHOD 06/21/2025 5:50 AM EDT [facility] Bordetella parapertussis Not Detected Not Detected LAB MICROBIOLOGY METHOD 06/21/2025 5:50 AM EDT [facility] Mycoplasma pneumo by PCR Not Detected Not Detected LAB MICROBIOLOGY METHOD 06/21/2025 5:50 AM EDT [facility] Chlamydia pneumoniae Not Detected Not Detected LAB MICROBIOLOGY METHOD 06/21/2025 5:50 AM EDT [facility] SARS COV-2 Not Detected Not Detected LAB MICROBIOLOGY METHOD 06/21/2025 5:50 AM EDT [facility] Swab Both anterior nares / Unknown Non-blood Collection / Unknown 06/21/2025 4:32 AM EDT 06/21/2025 4:58 AM EDT Narrative [facility] - 06/21/2025 5:50 AM EDT Testing was performed using the [employer]oot[employer] Respiratory Pathogen PCR Assay. All results must [...] ORDER ALEJANDRA Final Result Performing Organization Address City/[facility]/ZIP Co de Phone Number [facility] [address] [place] [address], * MRSA molecular study (06/21/2025 4:13 AM EDT) Only the most recent of2 resultswithin the time period is included. [facility] MRSA Screen PCR Not Detected Not Detected LAB MICROBIOLOGY METHOD 06/21/2025 9:00 AM EDT [facility] Swab Both anterior nares / Unknown Non-blood Collection / Unknown 06/21/2025 4:13 AM EDT 06/21/2025 4:32 AM EDT Ronnie Sierra MD LAB MICROBIOLOGY - GENERAL ORDER ALEJANDRA Final Result [facility] [address] [place] [address], [place] [phone] * Vascular US duplex lower extremity venous [...] by: Vanessa Frias MD on 06/21/2025 01:37:23 Narrative 06/21/2025 [...] LAB CHEMISTRY METHOD 06/20/2025 10:57 PM EDT [facility] Blood Venous blood specimen / Unknown Venipuncture / Unknown 06/20/2025 10:12 PM EDT 06/20/2025 10:18 PM EDT Narrative [facility] - 06/20/2025 10:57 PM EDT High levels of biotin in samples may falsely decrease hsTroponin values. Use caution when interpreting hsTroponin results in patients taking biotin who exhibit renal impairment (eGFR <60) or in patients taking more than 20 mg/day of biotin. us Ronnie Sierra MD LAB BLOOD ORDERABLES Final Resul t Performing Organization Address City/[facility]/ZIP Co de Phone Number [facility] [address] [place] [address], [place] [phone] * SST tube (06/20/2025 10:12 PM EDT) Only the most recent of3 resultswithin the time period is included. [facility] Extra Tube Hold for add-ons. 06/21/2025 12:01 AM EDT [facility] Comment:Auto resulted. Blood Venous blood specimen / Unknown 06/20/2025 10:12 PM EDT 06/20/2025 10:19 PM EDT us Ronnie Sierra MD LAB BLOOD ORDERABLES Final Resul t [facility] [address] [place] [address], [place] [phone] * APTT (06/20/2025 10:12 PM EDT) Only the most recent of3 resultswithin the time period is included. [facility] aPTT 30.7 24.1 - 39.3 sec LAB COAGULATION METHOD 06/20/2025 10:44 PM EDT [facility] Blood Venous blood specimen / Unknown Venipuncture / Unknown 06/20/2025 10:12 PM EDT 06/20/2025 10:44 PM EDT us Ronnie Sierra MD LAB BLOOD ORDERABLES Final Resul t Performing Organization Address [facility] Co de Phone Number [facility] [address] [place] [address], [place] [phone] * Protime-INR (06/20/2025 10:12 PM EDT) Only the most recent of4 resultswithin the time period is included. Pathologist [facility] Protime 13.6 10.6 - 13.9 sec LAB COAGULATION METHOD 06/20/2025 10:44 PM EDT [facility] INR 1.1 LAB COAGULATION METHOD 06/20/2025 10:44 PM EDT [facility] Blood Venous blood specimen / Unknown Venipuncture / Unknown 06/20/2025 10:12 PM EDT 06/20/2025 10:44 PM EDT us Ronnie Sierra MD LAB BLOOD ORDERABLES Final Resul t Performing Organization Address [facility] de Phone Number [facility] [address] [place] [address], [place] [phone] * hCG, serum, qualitative (06/20/2025 10:12 PM EDT) Pathologist [facility] hCG Qual Negative Negative 06/20/2025 11:30 PM EDT [facility] Blood Venous blood specimen / Unknown 06/20/2025 10:12 PM EDT 06/20/2025 10:19 PM EDT us Edwar Stiles PA LAB BLOOD ORDERABLES Final Resul t Performing Organization Address City/[facility] Co de Phone Number [facility] [address] [place] [address], [place] [phone] * B-type natriuretic peptide (06/20/2025 10:12 PM EDT) Only the most recent of2 resultswithin the time period is included. [facility] BNP 93 <=100 pcg/mL LAB CHEMISTRY METHOD 06/20/2025 11:05 PM EDT [facility] Blood Venous blood specimen / Unknown Venipuncture / Unknown 06/20/2025 10:12 PM EDT 06/20/2025 10:18 PM EDT us Edwar SUAREZ LAB BLOOD ORDERABLES Final Resul t [facility] [address] [place] [address], [place] [phone] * (ABNORMAL) Urinalysis with reflex microscopic and culture (06/20/2025 8:18 PM EDT) Only the most recent of2 resultswithin the time period is included. [facility] Specific [place] Urine 1.023 1.003 - 1.030 LAB URINALYSIS - AUTOMATED METHOD 06/20/2025 8:39 PM [facility] pH, Urine 8.5(A) 5.0 - 8.0 pH LAB URINALYSIS - AUTOMATED METHOD 06/20/2025 8:39 PM [facility] Leukocytes, Urine Trace(A) Negative LAB URINALYSIS - AUTOMATED METHOD 06/20/2025 8:39 PM [facility] Nitrite, Urine Negative Negative LAB URINALYSIS - AUTOMATED METHOD 06/20/2025 [facility] Protein, Urine 30(A) <=Trace mg/dL LAB URINALYSIS - AUTOMATED METHOD 06/20/2025 8:39 PM [facility] Glucose, Urine Negative Negative mg/dL LAB URINALYSIS - AUTOMATED METHOD 06/20/2025 8:39 PM [facility] Ketones, Urine Negative Negative mg/dL LAB URINALYSIS - AUTOMATED METHOD 06/20/2025 8:39 PM EDT [facility] Urobilinogen, Urine 0.2 0.2 - 1.0 mg/dL LAB URINALYSIS - AUTOMATED METHOD 06/20/2025 8:39 PM EDT [facility] Bilirubin, Urine Negative Negative LAB URINALYSIS - AUTOMATED METHOD 06/20/2025 8:39 PM EDT [facility] Blood, Urine Negative Negative LAB URINALYSIS - AUTOMATED METHOD 06/20/2025 8:39 PM EDT [facility] RBC, Urine 4.0 0 - 4 /HPF LAB URINALYSIS - AUTOMATED METHOD 06/20/2025 8:39 PM EDT [facility] WBC, Urine 5.6(H) 0 - 4 /HPF LAB URINALYSIS - AUTOMATED METHOD 06/20/2025 8:39 PM EDT [facility] Squamous Epithelial, Urine 78(H) 0 - 60 /LPF LAB URINALYSIS - AUTOMATED METHOD 06/20/2025 8:39 PM EDT [facility] Bacteria, Urine Negative Negative /HPF LAB URINALYSIS - AUTOMATED METHOD [facility] Hyaline Casts, Urine 1.6 0 - 3 /LPF LAB URINALYSIS - AUTOMATED METHOD 06/20/2025 8:39 PM EDT [facility] Urine Urine specimen obtained by clean catch procedure / Unknown Non-blood Collection / Unknown 06/20/2025 8:18 PM EDT 06/20/2025 8:27 PM EDT us Ronnie Sierra MD LAB URINE ORDERABLES Final Resul t [facility] [address] [place] [address], * Naranjo urine culture tube (06/20/2025 8:18 PM EDT) Only the most recent of2 resultswithin the time period is included. Extra Tube Hold for add-ons. 06/20/2025 10:02 PM EDT [facility] Comment:Auto resulted. Urine Urine specimen obtained by clean catch procedure / Unknown Non-blood Collection / Unknown 06/20/2025 8:18 PM EDT 06/20/2025 8:27 PM EDT Ronnie Sierra MD LAB URINE ORDERABLES Final Resul t Performing Organization Address City/[facility]/ZIP Co de Phone Number [facility] [address] [place] [address], * Legionella antigen urine, EIA (06/20/2025 8:18 PM EDT) Only the most recent of2 resultswithin the time period is included. Pathologist [facility] Legionella Antigen, Ur Negative Negative 06/20/2025 10:34 PM EDT [facility] Urine Urine specimen obtained by clean catch procedure / Unknown Non-blood Collection / Unknown 06/20/2025 8:18 PM EDT 06/20/2025 8:39 PM EDT Narrative [facility] - 06/20/2025 10:34 PM EDT Negative for Legionella pneumophilia serogroup 1 antigen. This presumptive result suggests no current or recent infection due to L. pneumophilia serogroup 1. Culture is recommended if Legionella infection is till suspected, as other serogroups and species of Legionella are not detected by this test. Edwar SUAREZ LAB URINE ORDERABLES Final Resul t Performing Organization Address City/[facility]/ZIP Co de Phone Number [facility] [address] [place] [address], [place] [phone] * Culture urine (06/20/2025 8:18 PM EDT) Only the most recent of2 resultswithin the time period is included. Culture, Urine >100,000 CFU/mL Mixed bacterial morphotypes present suggestive of possible contamination during collection. Suggest appropriate recollection if clinically indicated. 06/21/2025 12:56 PM EDT [facility] Urine Urine specimen obtained by clean catch procedure / Unknown Non-blood Collection / Unknown 06/20/2025 8:18 PM EDT 06/20/2025 8:39 PM EDT us Ronnie Sierra MD LAB MICROBIOLOGY - GENERAL ORDER ALEJANDRA Final Result Performing Organization Address City/[facility]/ZIP Co de Phone Number [facility] [address] [place] [address], [place] [phone] * Culture blood (06/20/2025 7:50 PM EDT) Only the most recent of7 resultswithin the time period is included. Culture, Blood No growth at 5 days LAB MICROBIOLOGY METHOD 06/25/2025 9:01 PM EDT [facility] Blood Venous blood specimen / Unknown Venipuncture / Unknown 06/20/2025 7:50 PM EDT 06/20/2025 8:01 PM EDT us Ronnie Sierra MD LAB MICROBIOLOGY - GENERAL ORDER ALEJANDRA Final Result Performing Organization Address City/[facility]/ZIP Co de Phone Number [facility] [address] [place] [address], [place] [phone] * Lactate, with reflex (06/20/2025 7:39 PM EDT) Only the most recent of2 resultswithin the time period is included. LACTIC ACID 0.8 0.4 - 2.0 mmol/L LAB CHEMISTRY METHOD 06/20/2025 8:35 PM EDT [facility] Blood Venous blood specimen / Unknown Venipuncture / Unknown 06/20/2025 7:39 PM EDT 06/20/2025 8:01 PM EDT us Ronnie Sierra MD LAB BLOOD ORDERABLES Final Resul t [facility] [address] [place] [address], [place] [phone] * [place] [facility] 30-74 MINUTES (06/20/2025 6:57 PM [...] Hold for add-ons. 06/16/2025 6:01 AM EDT [facility] Comment:Auto resulted. Blood Venous blood specimen / Unknown Venipuncture / Unknown 06/16/2025 4:00 AM EDT 06/16/2025 4:21 AM EDT us Araseli Morton MD LAB BLOOD ORDERABLES Final Re sult [facility] ([facility]) [facility] [address] [place] [address], [place] [phone] * CT Chest wo Contrast (06/12/2025 5:34 [...] by: Artis Nino MD on 06/12/2025 17:57:12 Jada Grissom MD IMG CT PROCEDURES Final Resul t * Acetylcholine receptor, blocking (06/05/2025 4:08 AM EDT) Acetylcholine Receptor Blocking Antibody <15 <15 % Inhibition 06/15/2025 10:35 AM EDT [facility] Comment: Test Performed at: [facility] [address] [place] [phone] Markell Eid MD, PhD, VELMA Blood Venous blood specimen / Unknown Venipuncture / Unknown 06/05/2025 4:08 AM EDT 06/05/2025 4:30 AM EDT Pareven Warner DO LAB BLOOD ORDERABLES Final R esult Performing Organization Address City/State/[facility] Co de Phone Number [facility] [address] [place] [address] * Acetylcholine receptor, modulating (06/05/2025 4:08 AM EDT) Pathologist [facility] Acetylcholine Receptor Modulating Antibody <1 % Inhibition 06/15/2025 10:35 AM EDT [facility] Comment: Reference Range: <32% INHIBITION This test was developed and its analytical performance characteristics have been determined by [facility]. It has not been cleared or approved by the FDA. This assay has been validated pursuant to the CLIA regulations and is used for clinical purposes. Test Performed at: [facility] [address] [address] Markell Eid MD, PhD, VELMA Blood Venous blood specimen / Unknown Venipuncture / Unknown 06/05/2025 4:08 AM EDT 06/05/2025 4:30 AM EDT [employer] BLOOD ORDERABLES Edited Result - Final Performing Organization Address [facility] de Phone Number [facility] [address] [place] [address] * (ABNORMAL) Acetylcholine receptor, binding (06/05/2025 4:08 AM EDT) Pathologist [facility] Acetylcholine Receptor Binding Antibody 2.90(H) nmol/L 06/15/2025 10:35 AM EDT [facility] Comment: Reference Ranges for Acetylcholine Receptor Binding Antibody: Negative: < or =0.30 nmol/L Equivocal: 0.31-0.49 nmol/L Positive: > or =0.50 nmol/L Test Performed at: [facility] [address] [id number] Markell Eid MD, PhD, VELMA Blood Venous blood specimen / Unknown Venipuncture / Unknown 06/05/2025 4:08 AM EDT 06/05/2025 4:30 AM EDT Parveen Warner DO LAB BLOOD ORDERABLES Edited Result - Final Performing Organization Address [facility]/ZIP Co de Phone Number [facility] [address] [place] [address] * Heparin induced platelet antibody (06/02/2025 10:16 AM EDT) Pathologist [facility] Heparin Induced Platelet Antibody 0.331 <0.4 OD 06/06/2025 1:52 PM EDT [facility] Comment: Probability of positive serotonin release assay (JORJE) based on PF4 optical density. (OD)* PF4 OD Chance of JORJE Positive <0.400 <1% 0.400 - 1.000 3% 1.000 - 1.400 18% 1.500 - 2.000 50% >2.000 89% *Anisa et al: J Thromb Haemost 2008; 6: [id number]. Test performed at [facility], [address] [place] [address] Luisana Villarreal MD, PhD - [employer] Machine Operator Blood Venous blood specimen / Unknown Venipuncture / Unknown 06/02/2025 10:16 AM EDT 06/02/2025 10:28 AM EDT us Araseli Morton MD LAB BLOOD ORDERABLES Final Re sult Performing Organization Address [facility]/ZIP Co de Phone Number [facility] [address] [place] [address] * (ABNORMAL) RBC morphology review (06/02/2025 4:05 AM EDT) [facility] Rbc Morphology Consistent with indices Consistent with indices, Normal for [place] LAB HEMETOLOGY METHOD 06/02/2025 5:09 AM EDT [facility] Platelet Morphology - WAM See Note(A) Normal LAB HEMETOLOGY METHOD 06/02/2025 5:09 AM EDT [facility] Comment:PLT: Normal Blood Venous blood specimen / Unknown Venipuncture / Unknown 06/02/2025 4:05 AM EDT 06/02/2025 4:22 AM EDT us Araseli Morton MD LAB BLOOD ORDERABLES Final Re sult Performing Organization Address [facility]/ZIP Co de Phone Number [facility] [address] [place] [address], [place] [phone] * (ABNORMAL) Iron and TIBC (06/02/2025 4:05 AM EDT) Iron 14(L) 40 - 150 mcg/dL LAB CHEMISTRY METHOD 06/02/2025 8:15 AM EDT [facility] TIBC 139(L) 250 - 450 mcg/dL LAB CHEMISTRY METHOD 06/02/2025 8:15 AM EDT [facility] Iron Saturation 10(L) 15 - 50 % LAB CHEMISTRY METHOD 06/02/2025 8:15 AM EDT [facility] Blood Venous blood specimen / Unknown Venipuncture / Unknown 06/02/2025 4:05 AM EDT 06/02/2025 4:22 AM EDT us Araseli Morton MD LAB BLOOD ORDERABLES Final Re sult Performing Organization Address [facility] de Phone Number [facility] [address] [place] [address], [place] [phone] * Occult blood stool, guaiac (05/30/2025 1:55 PM EDT) Occult Blood, Stool #1 Negative Negative 05/30/2025 2:28 PM EDT [facility] Stool Rectum structure / Unknown Non-blood Collection / Unknown 05/30/2025 1:55 PM EDT 05/30/2025 2:15 PM EDT us Parveen Warner DO LAB BODY FLUIDS AND STOOLS O RDERABLES Final Result Performing Organization Address City/[facility]/ZIP Co de Phone Number [facility] [address] [place] [address], [place] [phone] * (ABNORMAL) TRANSTHORACIC ECHOCARDIOGRAM (TTE) COMPLETE (05/30/2025 [...] LAB CHEMISTRY METHOD 05/30/2025 5:56 AM EDT [facility] ([facility]) [facility] Blood Blood sample taken from central line / Unknown Venipuncture / Unknown 05/30/2025 4:10 AM EDT 05/30/2025 4:18 AM EDT Bette SUAREZ LAB BLOOD ORDERABLES Final Result [facility] [address] [place] [address], [place] [phone] * Heparin and low molecular weight anti Xa level (05/30/2025 4:10 AM EDT) Only the most recent of4 resultswithin the time period is included. Heparin Anti-Xa 0.39 0.30 - 0.70 I Unit/mL LAB COAGULATION METHOD 05/30/2025 4:33 AM EDT [facility] Blood Blood sample taken from central line / Unknown Existing Catheter / Unknown 05/30/2025 4:10 AM EDT 05/30/2025 4:18 AM EDT [facility] - 05/30/2025 4:33 AM EDT Therapeutic range listed is for Unfractionated Heparin. LMW Heparin therapeutic range: 0.50-1.20 IU/mL Jada Grissom MD LAB BLOOD ORDERABLES Final Re sult Performing Organization Address City/[facility]/ZIP Co de Phone Number [facility] [address] [place] [address], [place] [phone] * Cortisol (05/30/2025 2:27 AM EDT) Cortisol 6.4 mcg/dL LAB CHEMISTRY METHOD 05/30/2025 3:37 AM EDT [facility] Blood Venous blood specimen / Unknown 05/30/2025 2:27 AM EDT 05/30/2025 2:54 AM EDT [facility] - 05/30/2025 3:37 AM EDT CORTISOL REFERENCE RANGE 8 AM SPEC: 5.0-23.0 mcg/dL 4 PM SPEC: 3.0-16.0 mcg/dL 8 PM SPEC: <5.0 mcg/dL Bette SUAREZ LAB BLOOD ORDERABLES Final Result Performing Organization Address City/[facility]/ZIP Co de Phone Number [facility] [address] [place] [address], * (ABNORMAL) D-Dimer (05/29/2025 9:37 AM EDT) D-Dimer, Quant (D-DU) 1,059(H) <=230 ng/mL DDU LAB COAGULATION METHOD 05/29/2025 9:52 AM EDT [facility] Blood Venous blood specimen / Unknown Venipuncture / Unknown 05/29/2025 9:37 AM EDT 05/29/2025 9:40 AM EDT Narrative [facility] - 05/29/2025 9:52 AM EDT D-Dimer <230 ng/mL (D-Dimer units) is the threshold for exclusion of DVT/PE. D-Dimer may be elevated in: Critically ill, severely infected, trauma patients, DIC, acute CVA, acute SD, unstable angina, AF, old age, , and smoking. D-Dimer may be decreased with: Initiation of heparin therapy and oral anticoagulants. Parveen Warner DO LAB BLOOD ORDERABLES Final R esult Performing Organization Address City/[facility]/ZIP Co de Phone Number [facility] [address] [place] [address], * Lipase (05/29/2025 4:40 AM EDT) Lipase 13 13 - 75 unit/L LAB CHEMISTRY METHOD 05/29/2025 8:17 AM EDT [facility] Blood Blood sample taken from central line / Unknown Existing Catheter / Unknown 05/29/2025 4:40 AM EDT 05/29/2025 5:03 AM EDT Parveen Levrault DO LAB BLOOD ORDERABLES Final R esult Performing Organization Address [facility]/ZIP Co de Phone Number [facility] [address] [place] [address], * Ammonia (05/29/2025 4:40 AM EDT) Ammonia 33 11 - 35 mcmol/L LAB CHEMISTRY METHOD 05/29/2025 5:25 AM EDT [facility] Blood Blood sample taken from central line / Unknown Existing Catheter / Unknown 05/29/2025 4:40 AM EDT 05/29/2025 5:02 AM EDT Parveen Warner DO LAB BLOOD ORDERABLES Final R esult Performing Organization Address [facility] Co de Phone Number [facility] [address] [place] [address], * Vancomycin, trough Please draw 1 hour before 05/28 07:00 dose. (05/28/2025 6:04 AM EDT) Vancomycin Trough 11.6 10.0 - 20.0 mcg/mL LAB CHEMISTRY METHOD 05/28/2025 7:07 AM EDT [facility] Blood Blood sample taken from central line / Unknown Existing Catheter / Unknown 05/28/2025 6:04 AM EDT 05/28/2025 6:12 AM EDT Jada Grissom MD LAB BLOOD ORDERABLES Final Re sult Performing Organization Address [facility] Co de Phone Number [facility] [address] [place] [address], * Insert PICC line (05/27/2025 12:45 PM EDT) Narrative Alysia Warner RN - 05/27/2025 12:45 PM EDT Alysia Warner RN 05/27/2025 1:24 PM PICC Line Insertion Procedure Note Procedure: Insertion of 4F Double lumen Bard Provena PowerPICC Lot: [id number] Exp: 2025-12-10 Indications: ICU level of care/Venous [...] 7.35 - 7.45 pH 05/27/2025 7:59 AM [facility] pCO2, Arterial 69(HH) 35 - 45 mmHg 05/27/2025 7:59 AM [facility] pO2, Arterial 61(L) 80 - 100 mmHg 05/27/2025 7:59 AM [facility] HCO3, Arterial 36.9(H) 22.0 - 26.0 mmol/L 05/27/2025 7:59 AM [facility] O2 Sat, Arterial 94.5(L) 95.0 - 98.0 % 05/27/2025 7:59 AM [facility] Base Excess, Arterial 15.5(H) -2.0 - 2.0 mmol/L 05/27/2025 7:59 AM EDT [facility] [place] Test 05/27/2025 7:59 AM EDT [facility] Comment:right brachial FIO2 0.40 05/27/2025 7:59 AM EDT [facility] Comment:cool aerosol Blood Arterial blood specimen / Unknown Arterial Puncture / Unknown 05/27/2025 7:43 AM EDT 05/27/2025 7:48 AM EDT us Jada Grissom MD LAB BLOOD ORDERABLES Final Re sult Performing Organization Address [facility]/ZIP Co de Phone Number [facility] [address] [place] [address], [place] [phone] * Light blue tube (05/27/2025 4:55 AM EDT) Pathologist [facility] Extra Tube Hold for add-ons. 05/27/2025 7:01 AM EDT [facility] Comment:Auto resulted. Blood Venous blood specimen / Unknown Venipuncture / Unknown 05/27/2025 4:55 AM EDT 05/27/2025 5:11 AM EDT us Araseli Morton MD LAB BLOOD ORDERABLES Final Re sult [facility] [address] [place] [address], [place] [phone] * [id number], RSV, Influenza A and B qualitative RT-PCR (05/26/2025 9:32 PM EDT) Pathologist [facility] Influenza A PCR Not Detected Not Detected LAB MICROBIOLOGY METHOD 05/26/2025 10:31 PM EDT [facility] Influenza B PCR Not Detected Not Detected LAB MICROBIOLOGY METHOD 05/26/2025 10:31 PM EDT [facility] RSV PCR Not Detected Not Detected LAB MICROBIOLOGY METHOD 05/26/2025 10:31 PM EDT [facility] SARS COV-2 Not Detected Not Detected LAB MICROBIOLOGY METHOD 05/26/2025 10:31 PM EDT [facility] Swab Both anterior nares / Unknown Non-blood Collection / Unknown 05/26/2025 9:32 PM EDT 05/26/2025 9:43 PM EDT Narrative [facility] - 05/26/2025 10:31 PM EDT Disclaimer: Testing was performed using the [employer] GeneXpert Xpress SARS-CoV-2 _Flu_RSV PLUS PCR assay. [...] for Healthcare providers can be found at https://www.fda.gov/media/499332/download. Fact sheet for Healthcare patients can be found at https://www.fda.gov/media/241186/download. us John Streeter MD LAB MICROBIOLOGY - GENERAL O RDERABLES Final Result [facility] [address] [place] [address], * [place] [facility] 30-74 MINUTES (05/26/2025 8:21 PM [...] specialty: no Care discussed with: admitting provider John Streeter MD IN CLINIC/BEDSIDE ORDERABLES Final Result from Last 3 Months Insurance MEDICARE Member Subscriber Plan / Payer (Ef fective 2014-Present) Name:MARGARITA HILL Relation to Subscriber:Self Name:Margarita Hollis Payer ID:[id number] Group ID:[id number] Type:Not on file Address: [place] [address] [id number] Advance Directives Documents on File Type Date Recorded 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
[2025-07-19 11:04] LABS: Alanine Aminotransferase < 6 U/L (0-31); Albumin Level 2.9 g/dL (3.5-5.0); Alkaline Phosphatase 79 U/L (39-117); Anion Gap 12 (12-20); Aspartate Amino Transferase 30 U/L (5-31); Blood Urea Nitrogen 21 mg/dL (9-16); Calcium 8.4 mg/dL (8.4-10.2); Carbon Dioxide 32 mmol/L (22-29); Chloride 99 mmol/L (96-108); Estimated Glomerular Filt Rate > 60; Potassium 4.9 mmol/L (3.3-5.1); Sodium 138 mmol/L (135-145); Total Protein 8.1 g/dL (6.5-8.0)
== END 2025-07-19 09:12 | disposition home or self-care (01) ==
LOC: HO.LAB 09:11
PROVIDERS: PCP Nurse Practitioner Family; Visit Provider Hospitalist
DX: J96.11 Chronic respiratory failure with hypoxia (principal); J96.12 Chronic respiratory failure with hypercapnia; J98.4 Other disorders of lung; M05.79 Rheumatoid arthritis with rheumatoid factor of multiple sites without organ or systems involvement; G70.9 Myoneural disorder, unspecified; Z93.0 Tracheostomy status; Z99.11 Dependence on respirator [ventilator] status
CPT/HCPCS: 36415; 80048; 80076; 82803; 85025; 85652; 99212

== ENCOUNTER 2025-07-19 09:44 | Outpatient (AMB) | payer OTHER, SELFPAY ==
[2025-07-19 09:46] VITALS: BP 106/68; PULSE 91; O2SAT 98
--- NOTE | 2025-07-19 09:46 | A.OFFVIS_ITS ---
Vital Signs 07/19/25 09:46 Height 6 ft BMI Reason not done Patient refused/unable BP 106/68 Blood Pressure Location Rt brachial Position Sitting Pulse 91 Pulse Source Pulse Oximeter Pulse Oximetry (%) 98 Oxygen Delivery Method Nasal Cannula Oxygen Flow Rate 5 Intake Visit Reasons: Hosp F/U [facility] [place] ok per Allergies morphine Allergy (Intermediate, Verified 07/19/25 09:51) Palpitations and Rash HPI Comments Details: The patient is a zak 30-year-old woman with a history of asthma, myasthenia gravis, rheumatoid arthritis now with tracheostomy for respiratory failure. Most of her records are a [facility] and also at [facility]. She also gets her care from [facility]. Based on the records the patient did have a episode of acute hypercarbic and hypoxic respiratory failure required intubation at [facility]. During that admission the patient did end up getting a tracheostomy placement likely for inability to clear the airway. She was subsequently placed on oxygen she was able to be discharged home. Not sure of the patient went to rehab before going home. Ultimately while in home she developed respiratory failure again and had to go back to the ER which they found that it was due to a faulty tracheostomy that had to be changed. She initially had a Shiley cuffed trach which was then replaced with a 6. Fenestrated CFN tracheostomy. Since the tracheostomy change she has had hard time with her breathing. It has been difficult for her to breathe or even be suctioned. She does have a Passy Dawn valve that allows her to speak. She has a very weak cough due to her neuromuscular disease. She does get suctioned although she does not have any type of cough assist device. She has been on immunosuppressant therapy for her autoimmune conditions. She does use her nebulizer twice a day. In her asthma seems to be good control. As far as her nutrition the patient does have a PEG tube. Today we did change her tracheostomy to a 6UN75H tracheostomy which she feels more comfortable with. She is tolerating the Passy Dawn valve very well. She has no longer using a noninvasive ventilator at home. We will assess her blood work including a venous gas to assess her CO2. The patient may benefit from noninvasive ventilation to minimize the hypercarbia and improve gas exchange. 05/06/2024 the patient is here for a pulmonary follow-up visit. Overall the patient is doing fairly well. Her chest congestion is better. She did get approved initially for the cough assist device but then it was taken away because insurance will not cover although she needs it. He will from the [employer] that we use for did not approaches and we did not realize that have been denied. In addition to that I did send a fax with the new tracheostomy that the patient needs in order to change it. However, she continues to receive the old 1. I did reach out to [facility] and did speak to a patient promotional representative. I did fax over a new script. I am hoping that she can get this tracheostomy soon not do for us to change it in the next 4 weeks. As it is already she is having some irritation to the skin around her trachea. Mainly because of secretions and the rubbing from the tracheostomy. Therefore the tracheostomy should be changed and better trach sponges should be provided to minimize that friction. I provide her with antimicrobial ointment although if not better she may need an antifungal treatment. Asbestos keep the area dry. In the meantime the patient also has significant gingivitis and therefore is at risk for micro aspirations into the lung. Will treat her with chlorhexidine mouthwash for a month twice a day in order to improve the issue. She may need to be on prophylactic chlorhexidine moving 4. will follow-up in 4-6 weeks. 07/27/2024 the patient is here for hospital follow-up visit. Recently she developed worsening respiratory symptoms and was admitted to [facility] with pneumonia. She did spend some time in the ICU. Subsequently discharged. She is feeling better. She is using the oxygen continuously. The patient has had issues with chronic hypercarbic respiratory failure. She does have an elevated CO2. Will go ahead and repeat her blood gas during the next visit. She also when she was in a hospital had a tracheostomy changed to a c uffed [employer] tracheostomy. With a bigger tracheostomy in the cough is hard for her to use her Passy Louisa valve and therefore she has a hard time eating and speaking. Therefore I did call the [employer] that she is working with and myself in my medical records secretary talk to multiple people to make sure that she got her supplies because she has not been getting her tracheostomy sent to her home. They did state that they will going to make sure that they will going to send a tracheostomy today and should be available by tomorrow. When she returns to the office will downsize her tracheostomy. Will check a blood gas at that point. If the patient continues have evidence of hypercarbia worsening disease then will start having to discuss further treatments with the noninvasive ventilator to improve her gas exchange. As far as the noninvasive ventilator this can be provided with a portable mouthpiece in order for her to get rescue breaths that sometimes she needs because of the increased work of breathing. Also sometimes that she can use at nighttime only if her tracheostomy can be capped. If however her tracheostomy can not be capped then she would potentially need a ventilator that will hooker operator to the tracheostomy. This could be done with a uncuffed trach as long as the PEEP is a 0. therefore, will wait for her to come back to downsize her trach and see how she does in order to move forward. If the patient develops any worsening symptoms prior to that she will call the office for further evaluation. She continues with the chest physical therapy. She has a new suction machine. And she is also using the prophylactic chlorhexidine mouthwash to prevent aspiration pneumonia. 12/03/2024 the patient is here for a pulmonary follow-up visit. Overall she is doing better she did get be admitted to the hospital with acute on chronic hypercarbic respiratory failure and she was placed on nighttime ventilator which she seems to be tolerating well. She gets that through her DME, [employer]. She does have a picture the invasive ventilator which is actually nostril. The patient does have a cough tracheostomy. We did swab it to a new 1, 7CN80H. I did send a request prescription to her [employer] company for the right size tracheostomy as she is still getting the older 1 that is uncuffed. She also needs inner cannulas and syringes to feel the cough. She does have a suction machine with her. We did swab her tracheostomy at the bedside without any complications she tolerated well and then she required suction afterwards. Will plan to do blood work including a blood gas during the next visit. For now seems like the ventilators working well and she appears to be stable currently. Will follow-up in 6-8 weeks and will change her tracheostomy at that point. If she has any issues prior to that she was coughing earlier assessment. 01/14/2025 the patient is here for a pulmonary follow-up visit. Overall the patient has been doing well. She did have the right tracheostomy sent over by her [employer] company. She has been using her ventilator at nighttime with good effect. Her family has been very capable to take care of her which is reassuring. We were able to change her trach at the bedside. However, is getting a little tight in the stoma likely because of the cough causing irritation of the stoma as is maneuvering the change the tracheostomy. Therefore will continue to try to change it every 4-6 weeks. In the meantime she does complain of a cough. And she also would like to see about taking food by mouth again. Will go ahead and set her up for a modified barium swallow to start assessing her ability to take by mouth. Ideally though she do that safely she would have to tolerate a Passy Louisa valve. 02/25/2025 the patient is here for a pulmonary follow-up visit. She has been doing well. She continues on the ventilator at nighttime. She still has a hard time tolerating the PMV during the daytime. She currently has a cough tracheostomy. I did change in at the bedside. She does have an appointment with speech pathology coming up in April. Will try to downsize her some in order for him to tolerate the PMV prior to the visit. She is still requiring suction. She is getting supplies from her [employer] company for the ventilator and the tracheostomy. In addition to that she does use oxygen. Usually is on 3 L continuously. At nighttime for some reason she was using a mask like a Ventimask or nasal cannula but she understands up with a cough trach does not going to help. Therefore she is going to start connecting the oxygen directly to the ventilator for better administration. The patient follow-up in 4-6 weeks she will bring the smaller trach with her in order for us to change. 04/08/2025 the patient is here for a pulmonary follow-up visit. We have been having some issues with her [employer] company, [employer], they have not been responsive to her equipment. We did call him again and then we did get a outside salesperson to try to facilitate any conversations and prescriptions to make sure the patient gets what she needs. She is supposed to be downsized as far as her trach in order for her to tolerate the Passy Louisa valve in order for her to have her speech and swallow tests in the coming weeks. Therefore the bedside we did change his tracheostomy to 6CN75H, which she tolerated without difficulties. The patient did put on the Passy Louisa valve and she tolerated it decent. Her cough is stronger which is reassuring. She does have increased secretions as well though I will send her antibiotic start. The patient follow-up in 4-6 w eeks to reach change her trach. Hopefully she can pass her swallow eval. 05/20/2025 the patient is here for a pulmonary follow-up visit. Overall the patient has been doing okay. Did she did tolerate the downsizing of her trach the last time to the 7.5 mm in her diameter tracheostomy. It is a cuffed trach. She still has a hard time with the Passy Dawn valve. She does have the swallow test coming up. Therefore, will go ahead and downsize her further to a 6.5 mm inner diameter tracheostomy, 4CN65H. we did change in at the bedside and she did well. Seem to tolerate the Passy Dawn a bit better. She will going to continue to work on it. In the meantime the patient does have increased secretions yellowish in color. Will go ahead and treat her for tracheitis with doxycycline. That seemed to work well the last time. The patient returns 6 weeks will return and change her tracheostomy. Will send a script out to her [employer] to get the right trach sent over. 07/19/2025 the patient is here for pulmonary follow-up visit. Overall the patient has been doing okay. She was briefly admitted to [facility] ICU with pneumonia. She did get up size to a 6CN65H tracheostomy in order to undergo a bronchoscopy. The patient tolerated that well. In the meantime she is actually doing well with his current trach. She is tolerating the Passy Louisa valve and she is able to speak. She also did undergo the modified barium evaluation and she actually passed and she has been tolerating some p.o. foods. She is still working closely with pH pathology. She is waiting for her treatment plan to start. In the meantime she does drink juice. She continues to feeds. The patient did have a tracheostomy change today without any complications. She has a lot of thin secretions which were easily suction and easily coughed up. Respiratory solomon the patient is doing well on the current therapy. Did we did check a blood gas. She does have some slight elevations in CO2 consistent with chronic hypercarbic respiratory failure but close to her baseline. The patient also is using the oxygen. She rather use the nasal cannula instead of the trach collar. She understands that using the trach collar with humidification allows humidity to keep the thick secretions thin and easily suctioned. Will follow-up in 6 weeks to have a repeat tracheostomy change then. If she has any issues prior to this she will call for further recommendations. 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 Respiratory failure Social History Patient Tobacco Use Status: Never used Tobacco Review of Systems Const Denies chills, Denies fatigue, Denies fever(s), Denies weight gain and Denies weight loss Eyes Reports no additional complaints ENT Denies dizziness Card Denies chest pain, Denies leg edema, Denies lightheadedness, Denies palpitations, Denies dyspnea on exertion, Denies orthopnea and Denies other Resp Denies cough and Denies dyspnea on exertion GI Denies hematochezia and Denies change in stool character Musc Denies abnormal gait, Denies muscle weakness, Denies numbness, Denies radiating pain into limb and Denies tingling Skin/Breast Denies rash Neuro Denies abnormal gait, Denies dizziness, Denies numbness and Denies tingling Endo Denies fatigue and Denies palpitations Physical Exam Vital Signs: Last Vital Signs Pulse 91 07/19/25 09:46 BP 106/68 07/19/25 09:46 Pulse Ox 98 07/19/25 09:46 Oxygen Delivery Method Nasal Cannula 07/19/25 09:46 Oxygen Flow Rate 5 07/19/25 09:46 Const General: alert Nutritional Appearance: underweight HEENT Head: Yes normocephalic Teeth and gingiva: gingiva abnormal hypertrophic, edematous and diffusely erythematous Neck Neck: Yes tracheostomy present (skin ulceration around the tracheostomy) Chest Chest palpation & inspection: normal inspection of the chest Resp Effort & Inspection: Actively coughing (very weak) and decreased respiratory effort Cardio Heart sounds: S1 normal heart sound present and S2 normal heart sound present GI Palpation (GI): Soft to palpation and Tenderness to palpation present (GI) (peg site) Skin General skin exam: no rashes or lesions noted Extrem General: No clubbing and No cyanosis Assessment & Plan Assessment & Plan (1) Tracheostomy dependence: Code(s): Z93.0 - Tracheostomy status Category: Medical (2) Respiratory failure: Code(s): J96.90 - Respiratory failure, unspecified, unspecified whether with hypoxia or hypercapnia Category: Medical Qualifiers: Chronicity: chronic Respiratory failure complication: hypoxia and hypercapnia Qualified Code(s): J96.11 - Chronic respiratory failure with hypoxia; J96.12 - Chronic respiratory failure with hypercapnia (3) Restrictive lung mechanics due to neuromuscular disease: Code(s): J98.4 - Other disorders of lung; G70.9 - Myoneural disorder, unspecified Category: Medical (4) Rheumatoid arthritis: Code(s): M06.9 - Rheumatoid arthritis, unspecified Category: Medical Qualifiers: Rheumatoid arthritis location: multiple sites Rheumatoid factor presence: with rheumatoid factor Qualified Code(s): M05.79 - Rheumatoid arthritis with rheumatoid factor of multiple sites without organ or systems involvement Plan continue oxygen via trach collar Trial PMV during the day speech pathology teachings small dose of Glycopyrrolate as needed changed tracheostomy Shiley#6CN75H continue ventilator at night repeat bloodgas during the next visit was ok F/U 4-6 weeks Coding Level of Care Code Est Pt Level 5 (35962) Complex EM visit Add On G2211 Diagnoses Tracheostomy dependence Z93.0 Chronic respiratory failure with hypoxia and hypercapnia J96.11; J96.12 Chronicity: chronic Respiratory failure complication: hypoxia and hypercapnia Restrictive lung mechanics due to neuromuscular disease J98.4; G70.9 Rheumatoid arthritis involving multiple sites with positive rheumatoid factor M05.79 Rheumatoid arthritis location: multiple sites Rheumatoid factor presence: with rheumatoid factor Time Spent (min) 45
== END 2025-07-19 10:21 | disposition home or self-care (01) ==
LOC: HO.HPS 09:45
PROVIDERS: PCP Nurse Practitioner Family; Visit Provider Hospitalist
DX: Z93.0 Tracheostomy status (principal); J96.11 Chronic respiratory failure with hypoxia; J96.12 Chronic respiratory failure with hypercapnia; J98.4 Other disorders of lung; G70.9 Myoneural disorder, unspecified; M05.79 Rheumatoid arthritis with rheumatoid factor of multiple sites without organ or systems involvement
CPT/HCPCS: 99215; G2211

== ENCOUNTER 2025-08-30 08:54 | Outpatient (AMB) | payer OTHER, SELFPAY ==
[2025-08-30 09:10] VITALS: BP 116/84; PULSE 95; O2SAT 98
--- NOTE | 2025-08-30 09:10 | MHC.OFFVIS ---
Vital Signs 08/30/25 09:10 Height 6 ft BMI Reason not done Patient refused/unable BP 116/84 Blood Pressure Location Lt brachial Position Sitting Pulse 95 Pulse Source Pulse Oximeter Pulse Oximetry (%) 98 Oxygen Delivery Method Nasal Cannula Oxygen Flow Rate 4 Intake Visit Reasons: Trache Change Allergies morphine Allergy (Intermediate, Verified 08/30/25 09:17) Palpitations and Rash HPI Comments Details: The patient is a zak 30-year-old woman with a history of asthma, myasthenia gravis, rheumatoid arthritis now with tracheostomy for respiratory failure. Most of her records are a [facility] and also at [facility]. She also gets her care from [facility]. Based on the records the patient did have a episode of acute hypercarbic and hypoxic respiratory failure required intubation at [facility]. During that admission the patient did end up getting a tracheostomy placement likely for inability to clear the airway. She was subsequently placed on oxygen she was able to be discharged home. Not sure of the patient went to rehab before going home. Ultimately while in home she developed respiratory failure again and had to go back to the ER which they found that it was due to a faulty tracheostomy that had to be changed. She initially had a Shiley cuffed trach which was then replaced with a 6. Fenestrated CFN tracheostomy. Since the tracheostomy change she has had hard time with her breathing. It has been difficult for her to breathe or even be suctioned. She does have a Passy [place] valve that allows her to speak. She has a very weak cough due to her neuromuscular disease. She does get suctioned although she does not have any type of cough assist device. She has been on immunosuppressant therapy for her autoimmune conditions. She does use her nebulizer twice a day. In her asthma seems to be good control. As far as her nutrition the patient does have a PEG tube. Today we did change her tracheostomy to a 6UN75H tracheostomy which she feels more comfortable with. She is tolerating the Passy Dawn valve very well. She has no longer using a noninvasive ventilator at home. We will assess her blood work including a venous gas to assess her CO2. The patient may benefit from noninvasive ventilation to minimize the hypercarbia and improve gas exchange. 05/06/2024 the patient is here for a pulmonary follow-up visit. Overall the patient is doing fairly well. Her chest congestion is better. She did get approved initially for the cough assist device but then it was taken away because insurance will not cover although she needs it. He will from the [employer] that we use for did not approaches and we did not realize that have been denied. In addition to that I did send a fax with the new tracheostomy that the patient needs in order to change it. However, she continues to receive the old 1. I did reach out to [facility] and did speak to a patient sales representative gas service. I did fax over a new script. I am hoping that she can get this tracheostomy soon not do for us to change it in the next 4 weeks. As it is already she is having some irritation to the skin around her trachea. Mainly because of secretions and the rubbing from the tracheostomy. Therefore the tracheostomy should be changed and better trach sponges should be provided to minimize that friction. I provide her with antimicrobial ointment although if not better she may need an antifungal treatment. Asbestos keep the area dry. In the meantime the patient also has significant gingivitis and therefore is at risk for micro aspirations into the lung. Will treat her with chlorhexidine mouthwash for a month twice a day in order to improve the issue. She may need to be on prophylactic chlorhexidine moving 4. will follow-up in 4-6 weeks. 07/27/2024 the patient is here for hospital follow-up visit. Recently she developed worsening respiratory symptoms and was admitted to [facility] with pneumonia. She did spend some time in the ICU. Subsequently discharged. She is feeling better. She is using the oxygen continuously. The patient has had issues with chronic hypercarbic respiratory failure. She does have an elevated CO2. Will go ahead and repeat her blood gas during the next visit. She also when she was in a hospital had a tracheostomy changed to a cuffed [employer] tracheostomy. With a bigger tracheostomy in the cough is hard for her to use her Passy Dawn valve and therefore she has a hard time eating and speaking. Therefore I did call the [employer] that she is working with and myself in my medical reception specialist talk to multiple people to make sure that she got her supplies because she has not been getting her tracheostomy sent to her home. They did state that they will going to make sure that they will going to send a tracheostomy today and should be available by tomorrow. When she returns to the office will downsize her tracheostomy. Will check a blood gas at that point. If the patient continues have evidence of hypercarbia worsening disease then will start having to discuss further treatments with the noninvasive ventilator to improve her gas exchange. As far as the noninvasive ventilator this can be provided with a portable mouthpiece in order for her to get rescue breaths that sometimes she needs because of the increased work of breathing. Also sometimes that she can use at nighttime only if her tracheostomy can be capped. If however her tracheostomy can not be capped then she would potentially need a ventilator that will suspect artist supervisor to the tracheostomy. This could be done with a uncuffed trach as long as the PEEP is a 0. therefore, will wait for her to come back to downsize her trach and see how she does in order to move forward. If the patient develops any worsening symptoms prior to that she will call the office for further evaluation. She continues with the chest physical therapy. She has a new suction machine. And she is also using the prophylactic chlorhexidine mouthwash to prevent aspiration pneumonia. 12/03/2024 the patient is here for a pulmonary follow-up visit. Overall she is doing better she did get be admitted to the hospital with acute on chronic hypercarbic respiratory failure and she was placed on nighttime ventilator which she seems to be tolerating well. She gets that through her DME, Where. She does have a picture the invasive ventilator which is actually nostril. The patient does have a cough tracheostomy. We did swab it to a new 1, 7CN80H. I did send a request prescription to her [employer] company for the right size tracheostomy as she is still getting the older 1 that is uncuffed. She also needs inner cannulas and syringes to feel the cough. She does have a suction machine with her. We did swab her tracheostomy at the bedside without any complications she tolerated well and then she required suction afterwards. Will plan to do blood work including a blood gas during the next visit. For now seems like the ventilators working well and she appears to be stable currently. Will follow-up in 6-8 weeks and will change her tracheostomy at that point. If she has any issues prior to that she was coughing earlier assessment. 01/14/2025 the patient is here for a pulmonary follow-up visit. Overall the patient has been doing well. She did have the right tracheostomy sent over by her [employer] company. She has been using her ventilator at nighttime with good effect. Her family has been very capable to take care of her which is reassuring. We were able to change her trach at the bedside. However, is getting a little tight in the stoma likely because of the cough causing irritation of the stoma as is maneuvering the change the tracheostomy. Therefore will continue to try to change it every 4-6 weeks. In the meantime she does complain of a cough. And she also would like to see about taking food by mouth again. Will go ahead and set her up for a modified barium swallow to start assessing her ability to take by mouth. Ideally though she do that safely she would have to tolerate a Passy [place] valve. 02/25/2025 the patient is here for a pulmonary follow-up visit. She has been doing well. She continues on the ventilator at nighttime. She still has a hard time tolerating the PMV during the daytime. She currently has a cough tracheostomy. I did change in at the bedside. She does have an appointment with speech pathology coming up in April. Will try to downsize her some in order for him to tolerate the PMV prior to the visit. She is still requiring suction. She is getting supplies from her [employer] company for the ventilator and the tracheostomy. In addition to that she does use oxygen. Usually is on 3 L continuously. At nighttime for some reason she was using a mask like a Ventimask or nasal cannula but she understands up with a cough trach does not going to help. Therefore she is going to start connecting the oxygen directly to the ventilator for better administration. The patient follow-up in 4-6 weeks she will bring the smaller trach with her in order for us to change. 04/08/2025 the patient is here for a pulmonary follow-up visit. We have been having some issues with her [employer] company, [employer], they have not been responsive to her equipment. We did call him again and then we did get a contact lens cutter to try to facilitate any conversations and prescriptions to make sure the patient gets what she needs. She is supposed to be downsized as far as her trach in order for her to tolerate the Passy Dawn valve in order for her to have her speech and swallow tests in the coming weeks. Therefore the bedside we did change his tracheostomy to 6CN75H, which she tolerated without difficulties. The patient did put on the Passy [place] valve and she tolerated it decent. Her cough is stronger which is reassuring. She does have increased secretions as well though I will send her antibiotic start. The patient follow-up in 4-6 weeks to reach change her trach. Hopefully she can pass her swallow eval. 05/20/2025 the patient is here for a pulmonary follow-up visit. Overall the patient has been doing okay. Did she did tolerate the downsizing of her trach the last time to the 7.5 mm in her diameter tracheostomy. It is a cuffed trach. She still has a hard time with the Passy [place] valve. She does have the swallow test coming up. Therefore, will go ahead and downsize her further to a 6.5 mm inner diameter tracheostomy, 4CN65H. we did change in at the bedside and she did well. Seem to tolerate the Passy [place] a bit better. She will going to continue to work on it. In the meantime the patient does have increased secretions yellowish in color. Will go ahead and treat her for tracheitis with doxycycline. That seemed to work well the last time. The patient returns 6 weeks will return and change her tracheostomy. Will send a script out to her [employer] to get the right trach sent over. 07/19/2025 the patient is here for pulmonary follow-up visit. Overall the patient has been doing okay. She was briefly admitted to [facility] ICU with pneumonia. She did get up size to a 6CN65H tracheostomy in order to undergo a bronchoscopy. The patient tolerated that well. In the meantime she is actually doing well with his current trach. She is tolerating the Passy [place] valve and she is able to speak. She also did undergo the modified barium evaluation and she actually passed and she has been tolerating some p.o. foods. She is still working closely with pH pathology. She is waiting for her treatment plan to start. In the meantime she does drink juice. She continues to feeds. The patient did have a tracheostomy change today without any complications. She has a lot of thin secretions which were easily suction and easily coughed up. Respiratory solomon the patient is doing well on the current therapy. Did we did check a blood gas. She does have some slight elevations in CO2 consistent with chronic hypercarbic respiratory failure but close to her baseline. The patient also is using the oxygen. She rather use the nasal cannula instead of the trach collar. She understands that using the trach collar with humidification allows humidity to keep the thick secretions thin and easily suctioned. Will follow-up in 6 weeks to have a repeat tracheostomy change then. If she has any issues prior to this she will call for further recommendations. 08/30/2025 the patient is here for pulmonary follow-up visit. The patient overall has been doing well. She has been tolerating the Passy [place] valve although she does not use it regularly. She is also taking by mouth although not a lot. She is primarily using her feeding tube. Her secretions have been about the same. We did change her tracheostomy today. She is having some difficulties with the DME company. Her suction machine already been replaced but is still not working properly. Will try to help her with the DME company at this time. Respiratory solomon the patient is seems to be doing well. Although she is having hard time sleeping. She is using Zyprexa and also using trazodone. Will try to increase the trazodone soon to see if this helps her. Seems like every time she goes to the hospital she gets benzodiazepines and then she has withdrawal strong them. I did request of the family tell the provide us in the hospital whenever she goes into the hospital to refrain from giving her any benzodiazepines. 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 Respiratory failure Social History Patient Tobacco Use Status: Never used Tobacco Review of Systems Const Denies chills, Denies fatigue, Denies fever(s), Denies weight gain and Denies weight loss Eyes Reports no additional complaints ENT Denies dizziness Card Denies chest pain, Denies leg edema, Denies lightheadedness, Denies palpitations, Denies dyspnea on exertion, Denies orthopnea and Denies other Resp Denies cough and Denies dyspnea on exertion GI Denies hematochezia and Denies change in stool character Musc Denies abnormal gait, Denies muscle weakness, Denies numbness, Denies radiating pain into limb and Denies tingling Skin/Breast Denies rash Neuro Denies abnormal gait, Denies dizziness, Denies numbness and Denies tingling Endo Denies fatigue and Denies palpitations Physical Exam Vital Signs: Last Vital Signs Pulse 95 08/30/25 09:10 BP 116/84 08/30/25 09:10 Pulse Ox 98 08/30/25 09:10 Oxygen Delivery Method Nasal Cannula 08/30/25 09:10 Oxygen Flow Rate 4 08/30/25 09:10 Const General: alert Nutritional Appearance: underweight HEENT Head: Yes normocephalic Teeth and gingiva: gingiva abnormal hypertrophic, edematous and diffusely erythematous Neck Neck: Yes tracheostomy present (skin ulceration around the tracheostomy) Chest Chest palpation & inspection: normal inspection of the chest Resp Effort & Inspection: Actively coughing (very weak) and decreased respiratory effort Cardio Heart sounds: S1 normal heart sound present and S2 normal heart sound present GI Palpation (GI): Soft to palpation and Tenderness to palpation present (GI) (peg site) Skin General skin exam: no rashes or lesions noted Extrem General: No clubbing and No cyanosis Assessment & Plan Assessment & Plan (1) Tracheostomy dependence: Code(s): Z93.0 - Tracheostomy status Category: Medical (2) Respiratory failure: Code(s): J96.90 - Respiratory failure, unspecified, unspecified whether with hypoxia or hypercapnia Category: Medical Qualifiers: Chronicity: chronic Respiratory failure complication: hypoxia and hypercapnia Qualified Code(s): J96.11 - Chronic respiratory failure with hypoxia; J96.12 - Chronic respiratory failure with hypercapnia (3) Restrictive lung mechanics due to neuromuscular disease: Code(s): J98.4 - Other disorders of lung; G70.9 - Myoneural disorder, unspecified Category: Medical (4) Rheumatoid arthritis: Code(s): M06.9 - Rheumatoid arthritis, unspecified Category: Medical Qualifiers: Rheumatoid arthritis location: multiple sites Rheumatoid factor presence: with rheumatoid factor Qualified Code(s): M05.79 - Rheumatoid arthritis with rheumatoid factor of multiple sites without organ or systems involvement Plan continue oxygen via trach collar Trial PMV during the day speech pathology teachings small dose of Glycopyrrolate as needed changed tracheostomy Shiley#6CN75H at the bedside continue ventilator at night increase Trazodone 100mf->150mg QHS F/U 4-6 weeks Medications: Changed From trazodone 100 mg (2 x 50 mg) PO BEDTIME 30 days 60 tabs 6RF To trazodone 150 mg (3 x 50 mg) PO BEDTIME 90 tabs 6RF 30 days Coding Level of Care Code Est Pt Level 5 (41288) Complex EM visit Add On G2211 Diagnoses Tracheostomy dependence Z93.0 Chronic respiratory failure with hypoxia and hypercapnia J96.11; J96.12 Chronicity: chronic Respiratory failure complication: hypoxia and hypercapnia Restrictive lung mechanics due to neuromuscular disease J98.4; G70.9 Rheumatoid arthritis involving multiple sites with positive rheumatoid factor M05.79 Rheumatoid arthritis location: multiple sites Rheumatoid factor presence: with rheumatoid factor Time Spent (min) 45
--- OUTSIDE RECORDS SUMMARY | 2025-08-30 09:22 | XMS_ITS | Clinical Summary ---
Author Organization [facility] Address [address] [place] [address] Care Team Providers Care Director Trial Name Role Phone Alethea Marsh Primary Care Provider [phone] Allergies Active Allergy Reactions Criticality Noted Date [...] the affected area as needed for itching. Monhegan balm topical ointment PRN 3 times a dayfor pain Active emollient cream by Topical (top) route. 2 times PRN for dry skin Active LORazepam (ATIVAN) 1 mg tablet Take 1 mg by mouth every 6 hours as needed for anxiety. Active folic acid (FOLVITE) 1 mg tabletIndication s:Rheumatoid arthritis involving multiple sites with positive rheumatoid factor Take 1 tablet (1 mg total) by mouth once a day. 90 tablet 3 4 Active methotrexate (TREXALL) 2.5 mg tabletIndication s:Rheumatoid arthritis involving multiple sites with positive rheumatoid factor Take 6 tablets (15 mg total) by mouth once a week. 72 tablet 1 4 Active Additional Information Patient not taking.Reported on 03/31/2025 hydroxychloroqui ne (PLAQUENIL) 200 mg tabletIndication s:Rheumatoid arthritis involving multiple sites with positive rheumatoid factor TAKE 1 TABLET (200 MG TOTAL) BY MOUTH 2 TIMES A DAY. 60 tablet 2 4 Active Additional Information Patient not taking.Reported on 03/31/2025 pyridostigmine (MESTINON) 30 mg tablet Take 30 mg by mouth 3 times a day. Active sulfaSALAzine (AZULFIDINE) 500 mg tabletIndication s:Rheumatoid arthritis involving multiple sites with positive rheumatoid factor Take 1 tablet (500 mg total) by [...] methotrexate, sulfasalazine -labs in a month at [facility] -hep B non-immune, hep C neg, [...] Screening Completed 07/30/2023 Procedures * Due to [place] Fact[employer] law, this organization might not be sharing negative HIV tests. Procedure Name Priority Date/Time Associated Diagnosis Comments HEPATITIS C ANTIBODY W/REFLEX TO HCV RNA, QUANTITATIVE PCR Routine 07/30/2023 5:42 PM EDT Long-term use of high-risk medication from Last 3 Months or Most Recently Relevant to Health Maintenance Results * Due to [place] Factonomy law, this organization might not be sharing negative HIV tests. * Hepatitis C Antibody w/Reflex to HCV RNA, Quantitative PCR (07/30/2023 5:42 PM EDT) Hepatitis C Antibody NON-REACT HUANG NON-REACT HUANG 07/31/2023 7:35 AM EDT [employer] Comment: HCV antibody was non-reactive. There is no laboratory evidence of HCV infection. In most cases, no further action is required. However, if recent HCV exposure is suspected, a test for HCV RNA (test code 59198) is suggested. For additional information please refer to http://education.[employer]faq/JVF45s0 (This link is being provided for informational/ educational purposes only.) Blood Structure of peripheral vein / Unknown Venipuncture / Unknown 07/30/2023 5:42 PM EDT 07/30/2023 5:58 PM EDT Narrative [facility] - 07/31/2023 7:35 AM EDT [facility] Received Date: Ted Hudson MD LAB BLOOD ORDERABLES Final Result [facility] [address], [place] [address], [employer] [facility] [address], [place] [address], from Last 3 Months or Most Recently Relevant to Health Maintenance Insurance [employer] Advance Directives Documents on File Type Date Recorded Patient Birth Attendant Expl [facility] Health Care Proxy 12/04/2023 10:46 AM 11-11 Care Teams Director Trial Relationship Specialty Start Date End Date Alethea Marsh [address] [place] [address] PCP - General 06/30/24
== END 2025-08-30 09:37 | disposition home or self-care (01) ==
LOC: HO.HPS 08:55
PROVIDERS: PCP Nurse Practitioner Family; Visit Provider Hospitalist
DX: Z93.0 Tracheostomy status (principal); J96.11 Chronic respiratory failure with hypoxia; J96.12 Chronic respiratory failure with hypercapnia; J98.4 Other disorders of lung; G70.9 Myoneural disorder, unspecified; M05.79 Rheumatoid arthritis with rheumatoid factor of multiple sites without organ or systems involvement
CPT/HCPCS: 99215; G2211

== ENCOUNTER → 2025-08-30 08:54 | Outpatient (BNVA) | payer OTHER, SELFPAY | PROVIDERS: PCP Nurse Practitioner Family; Visit Provider Hospitalist | DX: J96.11 Chronic respiratory failure with hypoxia (principal); J96.12 Chronic respiratory failure with hypercapnia; Z93.0 Tracheostomy status | CPT/HCPCS: 99212 ==